=== PATIENT | male | born 1955 | race Caucasian/White ===

== ENCOUNTER 2016-12-21 08:20 | Outpatient (CLI) | payer OTHER ==
[~2016-12-21 08:20] MED LIST: ACET-2267 PO; ALBUTEROL 90MCG INH; ASP325T PO; ASPI-586 PO; ASPI-808 PO; ASPI-875 PO; ATOR80TA PO; ATOR80TA64 PO; AZIT1PAC8; BPR150TCR PO; CARV6.252 PO; CEFU500T5 PO; CLOP75TA28 PO; CLPD75T PO; CRV25T PO; DIPH50CA PO; DOXYCYCLINE; FURO40SO5 PO; FURO40TA4 PO; FURO80TA PO; FURO80TA3 PO; HYDR-2890 PO; HYDR-34 PO; HYDR-3458 PO; HYDR1CAP PO; IBUP-30 PO; IBUP200C11 PO; KCL20TCR PO; LISI20TA PO; METH4TAB PO; NIA500ERT PO; NIAC1CAP PO; NIAC500T5 PO; OXYC-12 PO; OXYC-202 PO; POTA10CA43 PO; POTA10TA36 PO; POTA20PI IV; PRD20T PO; SIMV40TA2 PO; TIZA2CAP PO; TIZA2TAB3 PO; TRAM-42 PO; WRF2.5T PO; WRF5T PO; [UNRECOGNIZED DRUG - OTHER]
--- OUTSIDE RECORDS SUMMARY | 2016-12-21 08:24 | XMS REPORT | Continuity of Care Document ---
Author Author [facility] Organization [facility] Address Unknown Phone Unavailable Care Team Providers Care Head Char Filter Tank Tender Name Role Phone ROBERT ALCARAZ MD PCP Insurance Providers Payer Name Policy Number Subscriber Name Relationship [employer] [id number] Samuel Moreno 18 Self / Same As Patient Advance Directives Directive Response Recorded Date/Time Advance Directives No 01/18/15 12:00pm Health Care Power of Enterprise Systems Manager No 01/18/15 12:00pm Organ Donor Yes 01/18/15 12:00pm Resuscitation Status Full Code 01/18/15 12:00pm Problems No known problems or medical conditions. Medications Medication Dose Route Sig Days/Qty Instructions Order Date Discontinued Date Status Clopidogrel Bisulfate 75 Mg PO DAILY 01/09/11 Active Carvedilol (Coreg) 6.25 Mg PO TWICE A DAY 01/09/11 02/09/12 Discontinued Warfarin Sodium 2.5 Mg PO ALBRIGTH, TU, W, TH, SA 01/09/11 01/11/11 Discontinued Warfarin Sodium 5 Mg PO DAILY TAKE 5MG DAILY UNTIL YOU SEE YOUR DOCTOR 01/09/11 02/10/11 Discontinued Lisinopril (Zestril) 20 Mg PO DAILY 01/09/11 Active Furosemide (Lasix) 40 Mg PO TWICE A DAY PRN 01/09/11 10/13/12 Discontinued Simvastatin 40 Mg PO BEDTIME 01/09/11 10/13/12 Discontinued Niacin 500 Mg PO DAILY 01/09/11 05/05/12 Discontinued Aspirin 325 Mg PO DAILY 01/09/11 10/14/12 Discontinued Potassium Chloride 20 Meq PO DAILY PRN 01/09/11 10/14/12 Discontinued Hydrocodone Bit/Acetaminophen 5 - 500 Tab PO NEEDED 01/09/1104/08 Discontinued Azithromycin 01/09/11 02/10/11 Discontinued Prednisone 60 Mg PO DAILY FOR 4 MORE DAYS 01/11/11 03/03/11 Discontinued Bupropion HCl 1 Tab PO TWICE A DAY 30 Qty 01/11/11 02/09/12 Discontinued [Albuterol 90MCG] 2 Puff INH EVERY 4HRS PRN NEEDED FOR SHORTNESS OF BREATH/ 01/11/11 02/09/12 Discontinued Diphenhydramine HCl 50 Mg PO Q4HRS 02/10/11 03/03/11 Discontinued [Doxycycline] 02/10/11 03/03/11 Discontinued Hydrocodone Bit/Acetaminophen 1 Each PO NEEDED 30 Days 02/10/1104/08 Discontinued Cefuroxime Axetil (Ceftin) 1 Each PO TWICE A DAY 5 Days 03/04/1102/08 Discontinued Oxycodone Hcl/Acetaminophen 1 Each PO EVERY 8HRS PRN FOR PAIN UNRELIEVED BY TYLENOL 03/04/11 02/09/12 Discontinued Carvedilol 25 Mg PO TWICE A DAY 02/09/12 Active Acetaminophen/Hydrocodone Bitart ([place]) 1 Tab PO THREE TIMES A DAY PRN 02/09/12 05/05/12 Discontinued [Slow Nician ] 05/05/12 10/14/12 Discontinued Hydrocodone Bit/Acetaminophen 1 Each PO 05/05/12 10/14/12 Discontinued Methylprednisolone 1 Packet PO DIRECTED 1 Qty 05/05/12 10/14/12 Discontinued Oxycodone Hcl/Acetaminophen 1 - 2 Each PO EVERY 6 HOURS PRN 10 Qty 06/0910/13/12 Discontinued Atorvastatin Calcium 1 Each PO DAILY 10/13/12 Active Furosemide 1 Each PO TWICE A DAY 10/13/12 10/14/12 Discontinued Niacin/Inositol Niacinate 1 Each PO 10/14/12 Active Aspirin 81 Mg PO 10/14/12 Active Furosemide (Lasix) 1 Each PO DAILY MORNING 10/14/12 Active Furosemide 40 Mg PO BEDTIME 10/14/12 Active Hydrocodone Bit/Acetaminophen 1 Each PO EVERY 8HRS PRN 10/14/12 Active Potassium Chloride 20 Meq IV 10/14/12 10/14/12 Discontinued Potassium Chloride (Micro K) 1 Each PO DAILY WITH FOOD 10/14/12 Active Social History Social History Problem Response Recorded Date/Time Recent Foreign Travel No 01/18/2015 10:18am Hospital Discharge Instructions No hospital discharge instructions. Plan of Care No plan of care. Functional Status No functional status results. Allergies, Adverse Reactions, Alerts Allergen Type Severity Reaction Status Last Updated Quinine Allergy Active 02/09/12 Immunizations No immunization records. Vital Signs Acute Vital Signs Vital Response Date/Time Temperature (Fahrenheit) 96.9 degrees F (97.6 - 99.5) Temperature (Calculated Celsius) 36.03796 degrees C (36.4 - 37.5) Temperature Source Temporal Pulse Rate (adult) 82 bpm (60 - 90) Respiratory Rate 16 bpm (12 - 24) O2 Sat by Pulse Oximetry 96 % (88 - 100) Blood Pressure 142/79 mm Hg Pain Pain Intensity 0 Height (Feet) 6 feet Height (Inches) 0.00 inches Height (Calculated Centimeters) 182.934651 cm Weight (Pounds) 280 pounds Weight (Ounces) 0.0 oz Weight (Calculated Grams) 311376.865 gm Weight (Calculated Kilograms) 127.651602 kilograms Height 6 ft 0 in Weight 280 lb Body Mass Index 38.0 kg/m^2 Results No known relevant diagnostic tests, laboratory data and/or discharge summary. Procedures No known history of procedures. Encounters Encounter Location Date/Time Discharged Recurring Via [facility] 01/23/15 10:03am
== END 2016-12-21 16:30 | disposition home or self-care (01) ==
LOC: SLEEP 08:20
PROVIDERS: ATTEND Internal Medicine Critical Care Medicine
DX: I50.22 Chronic systolic (congestive) heart failure (principal); J43.8 Other emphysema; I25.10 Atherosclerotic heart disease of native coronary artery without angina pectoris; R53.83 Other fatigue; E66.01 Morbid (severe) obesity due to excess calories; Z72.0 Tobacco use
CPT/HCPCS: 95810

== ENCOUNTER → 2016-12-22 | Outpatient (CLI) | payer OTHER ==
--- OUTSIDE RECORDS SUMMARY | 2016-12-22 09:03 | XMS REPORT | Continuity of Care Document ---
Author Author [facility] Organization [facility] Address Unknown Phone Unavailable Care Team Providers Care Paradichlorobenzene Tender Name Role Phone ROBERT ALCARAZ MD PCP Insurance Providers Payer Name Policy Number Subscriber Name Relationship [employer]p [id number] Samuel Moreno 18 Self / Same As Patient Advance Directives Directive Response Recorded Date/Time Advance Directives No 01/18/15 12:00pm Health Care Power of Fruit Or Nut Grower No 01/18/15 12:00pm Organ Donor Yes 01/18/15 12:00pm Resuscitation Status Full Code 01/18/15 12:00pm Problems No known problems or medical conditions. Medications Medication Dose Route Sig Days/Qty Instructions Order Date Discontinued Date Status Clopidogrel Bisulfate 75 Mg PO DAILY 01/09/11 Active Carvedilol (Coreg) 6.25 Mg PO TWICE A DAY 01/09/11 02/09/12 Discontinued Warfarin Sodium 2.5 Mg PO ALBRIGHT, TU, W, TH, SA 01/09/11 01/11/11 Discontinued [...] TWICE A DAY 02/09/12 Active Acetaminophen/Hydrocodone Bitart ([place]) 1 Tab PO THREE TIMES A DAY [...] F (97.6 - 99.5) Temperature (Calculated Celsius) 36.01651 degrees C (36.4 - 37.5) Temperature Source Temporal Pulse Rate (adult) 82 bpm (60 - 90) Respiratory Rate 16 bpm (12 - 24) O2 Sat by Pulse Oximetry 96 % (88 - 100) Blood Pressure 142/79 mm Hg Pain Pain Intensity 0 Height (Feet) 6 feet Height (Inches) 0.00 inches Height (Calculated Centimeters) 182.461155 cm Weight (Pounds) 280 pounds Weight (Ounces) 0.0 oz Weight (Calculated Grams) 056359.865 gm Weight (Calculated Kilograms) 127.851940 kilograms Height 6 ft 0 in Weight 280 lb Body Mass Index 38.0 kg/m^2 Results No known relevant diagnostic tests, laboratory data and/or discharge summary. Procedures No known history of procedures. Encounters Encounter Location Date/Time Discharged Recurring Via [facility] 01/23/15 10:03am
--- NOTE | 2016-12-22 10:49 | Diagnostic Imaging Report ---
PA and lateral chest at 934 hours. INDICATION: Cough. FINDINGS: The cardiomegaly and right-sided defibrillator device seen on the prior exam of 10/21/16 are again visualized and no different. The previous study also revealed bibasilar atelectasis and a newly developed right pleural effusion. Those findings are again evident and not significantly changed either. The upper lungs remain clear. The right hilum is prominent but not significantly changed when compared to the prior exam. There is no clear evidence for a hilar mass. The mediastinum is not widened. The osseous structures are intact. IMPRESSION: 1. When compared to the previous study, there has been no significant change. There is persistent atelectasis/infiltrate in each lung base as well as a moderate right pleural effusion. No new abnormality has developed, however. 2. If clinical concern regarding an underlying abnormality persists, then CT of the chest would be recommended for further study. 3. These results were discussed with Rosa in Dr. Lopez's office. Dictated by: Dictated on workstation # [id number]
== END ==
LOC: RAD 08:59
PROVIDERS: ATTEND Nurse Practitioner
DX: R06.02 Shortness of breath (principal)
CPT/HCPCS: 71020

== ENCOUNTER → 2016-12-24 | Outpatient (CLI) | payer OTHER ==
[~2016-12-24] MED LIST changes: +CATHETER FLUSH 10 ML SYR IV PRN; +IOHEXOL 350 MG/ML 100 ML (OMNIPAQUE 350) VIAL IV ONE; +NS 100 ML (IVPB) BAG IV ONE
--- OUTSIDE RECORDS SUMMARY | 2016-12-24 08:53 | XMS REPORT | Continuity of Care Document ---
Author Author [facility] Organization [facility] Address Unknown Phone Unavailable Care Team Providers Care Wet Press Tender Name Role Phone ROBERT ALCARAZ MD PCP Insurance Providers Payer Name Policy Number Subscriber Name Relationship [employer] [id number] Samuel Moreno 18 Self / Same As Patient Advance Directives Directive Response Recorded Date/Time Advance Directives No 01/18/15 12:00pm Health Care Power of Beam Press Operator No 01/18/15 12:00pm Organ Donor Yes 01/18/15 [...] TWICE A DAY 02/09/12 Active Acetaminophen/Hydrocodone Bitart ([place]) 1 Tab PO THREE TIMES A DAY [...] F (97.6 - 99.5) Temperature (Calculated Celsius) 36.17718 degrees C (36.4 - 37.5) Temperature Source Temporal Pulse Rate (adult) 82 bpm (60 - 90) Respiratory Rate 16 bpm (12 - 24) O2 Sat by Pulse Oximetry 96 % (88 - 100) Blood Pressure 142/79 mm Hg Pain Pain Intensity 0 Height (Feet) 6 feet Height (Inches) 0.00 inches Height (Calculated Centimeters) 182.978635 cm Weight (Pounds) 280 pounds Weight (Ounces) 0.0 oz Weight (Calculated Grams) 836035.865 gm Weight (Calculated Kilograms) 127.784606 kilograms Height 6 ft 0 in Weight 280 lb Body Mass Index 38.0 kg/m^2 Results No known relevant diagnostic tests, laboratory data and/or discharge summary. Procedures No known history of procedures. Encounters Encounter Location Date/Time Discharged Recurring Via [facility] 01/23/15 10:03am
[2016-12-24 09:30] LABS: BLOOD UREA NITROGEN 17 MG/DL (7-18); BUN/CREATININE RATIO 22; CREATININE SERUM 0.76 MG/DL (0.60-1.30); GFR ESTIMATED > 60
--- NOTE | 2016-12-24 12:55 | Diagnostic Imaging Report ---
PROCEDURE: CT chest with contrast only. TECHNIQUE: Multiple contiguous axial images were obtained through the chest after administration of intravenous contrast. INDICATION: Pneumonia. FINDINGS: The recent CT chest exam of 12/22/16 noted persistent atelectasis/infiltrate and fluid involving the right lung base. On this exam, there is again evidence of atelectasis/pneumonia and fluid in the right lung base. The fluid measures approximately 4.2 cm in maximum depth. When compared to the previous CT chest exam of 10/14/12, there has also been the development of several mediastinal and right hilar lymph nodes. The largest of these nodes is in the right pretracheal space and measures approximately 1.7 x 2.0 cm. There is also a 1.4 x 2.0 cm area of diminished density in the right hilum. I suspect that these are reactive nodes related to the pneumonia/atelectasis involving the right lung base and not to neoplasm. If further evaluation is desired, however, then bronchoscopy should be considered. If there is no intervention at this time, then a short-term (4-6 week) followup CT chest exam should be obtained. The right upper lung is generally clear although there are rather severe emphysematous changes involving the right upper lung. There are also emphysematous changes in the left lung and there is a small amount of atelectasis/infiltrate in the left lower lobe as well. The heart is enlarged and coronary artery calcifications are evident. There also appears to be a stent in the left circumflex coronary artery. A right-sided defibrillator device is noted as well. The pulmonary arteries are not fully opacified but there is no definite defect to suggest a pulmonary embolus. The aorta is not abnormally dilated and there is no evidence for a dissection. The thyroid gland does not appear to be enlarged. The sections through the upper abdomen fail to show any sign of an acute abnormality. The bone windows are unremarkable for a fracture or for a destructive lesion. IMPRESSION: 1. There is right lower lobe pneumonia/atelectasis and at least a moderate right pleural effusion present. There is also a nonspecific right hilar and mediastinal adenopathy. Considerations and recommendations as above. 2. There is also a small amount of atelectasis/infiltrate in the left lung base but there is no acute cardiopulmonary abnormality noted otherwise. In particular, there is no sign of a pulmonary embolus or of a dissection. 3. There is cardiomegaly and coronary artery disease. 4. These results were called to Dr. Lopez's office.. Dictated by: Dictated on workstation # [id number]
== END ==
LOC: RAD 08:50
PROVIDERS: ATTEND Nurse Practitioner
DX: J90 Pleural effusion, not elsewhere classified (principal); I51.7 Cardiomegaly; I25.10 Atherosclerotic heart disease of native coronary artery without angina pectoris
CPT/HCPCS: 36415; 71260; 82565; 84520

== ENCOUNTER 2017-01-01 08:32 | Outpatient (CLI) | payer OTHER ==
[~2017-01-01] VITALS: Ht 182.9 cm; Wt 129.3 kg
[~2017-01-01 08:32] MED LIST changes: -CATHETER FLUSH 10 ML SYR IV PRN; -IOHEXOL 350 MG/ML 100 ML (OMNIPAQUE 350) VIAL IV ONE; -NS 100 ML (IVPB) BAG IV ONE
--- OUTSIDE RECORDS SUMMARY | 2017-01-01 08:35 | XMS REPORT | Continuity of Care Document ---
Author Author [facility] Organization [facility] Address Unknown Phone Unavailable Care Team Providers Care Retail Client Manager Name Role Phone ROBERT ALCARAZ MD PCP Insurance Providers Payer Name Policy Number Subscriber Name Relationship [employer]p [id number] Samuel Moreno 18 Self / Same As Patient Advance Directives Directive Response Recorded Date/Time Advance Directives No 01/18/15 12:00pm Health Care Power of Clearance Rep No 01/18/15 12:00pm Organ Donor Yes 01/18/15 [...] TWICE A DAY 02/09/12 Active Acetaminophen/Hydrocodone Bitart ([place]) 1 Tab PO THREE TIMES A DAY [...] F (97.6 - 99.5) Temperature (Calculated Celsius) 36.29716 degrees C (36.4 - 37.5) Temperature Source Temporal Pulse Rate (adult) 82 bpm (60 - 90) Respiratory Rate 16 bpm (12 - 24) O2 Sat by Pulse Oximetry 96 % (88 - 100) Blood Pressure 142/79 mm Hg Pain Pain Intensity 0 Height (Feet) 6 feet Height (Inches) 0.00 inches Height (Calculated Centimeters) 182.331034 cm Weight (Pounds) 280 pounds Weight (Ounces) 0.0 oz Weight (Calculated Grams) 386045.865 gm Weight (Calculated Kilograms) 127.047354 kilograms Height 6 ft 0 in Weight 280 lb Body Mass Index 38.0 kg/m^2 Results No known relevant diagnostic tests, laboratory data and/or discharge summary. Procedures No known history of procedures. Encounters Encounter Location Date/Time Discharged Recurring Via [facility] 01/23/15 10:03am
[2017-01-01] MEDS ORDERED: BUPIVACAINE 0.25% 30 ML (SENSORCAINE) VIAL ONE (08:44)
[2017-01-01] MEDS ORDERED: TRIAMCINOLONE ACET (KENALOG-40) 40 MG/ML 1 ML VIAL ONE (08:44)
[2017-01-01 08:54] VITALS: BP 146/88
[2017-01-01 09:39] VITALS: BP 143/94
--- NOTE | 2017-01-01 12:07 | Pain Medicine-Procedure ---
Procedure Pre-Op/Post-Op Diagnosis Diagnosis: disc disorder with radiculopathy, lumbar Indications for Operation Low back and hip pain Attending Surgeon Osmel Procedure Date of Service: Jan 01, 2017 Procedure: Lumbar Epidural Steroid Injection at the L5/S1 Level under Fluoroscopic Guidance and left sacroiliac joint injection Procedure: Patient was identified in the holding area. After risks, benefits, and alternatives were discussed with the patient, informed consent was obtained. Patient held his Plavix for 7 days prior to procedure. Patient was brought to the fluoroscopy suite and placed prone on the procedure room table. A time out was performed. Vital signs were monitored throughout the procedure. The patients low back was prepped and draped in the usual sterile fashion. The patients skin was anesthetized using 2% Lidocaine. A Tuohy needle was inserted and advanced to the L5-S1 epidural space under fluoroscopic guidance using the loss of resistance technique and intermittent projection of fluoroscopy. There was no paresthesia with needle placement. The needle position was confirmed in both the AP and lateral view. After negative aspiration 2ml of non-ionic contrast was injected under live fluoroscopy which showed good spread of the contrast in the epidural space at the appropriate level, there was no intravascular or subarachnoid spread. Again, after negative aspiration for heme or CSF, 2 ml of 0.25% Bupivicaine, 2ml of preservative free normal saline, and 80mg of Kenalog was injected. The needle was removed and a sterile bandage was placed. Attention was then directed to the left sacroiliac joint which was identified under fluoroscopic guidance. The skin overlying the posterior inferior one third of the sacroiliac joint was anesthetized with 1 percent lidocaine and a 22 -gauge 3-1/2 inch needle was inserted and advanced into the joint. Following negative aspiration a total of 40 mg of Kenalog and 2 mL of 0.25 percent bupivacaine was injected. Needle was flushed with lidocaine and removed. Sterile bandage was applied. Patient tolerated the procedures well with no apparent complications. Complications None TIMOTEO CHAPMAN MD Jan 01, 2017 12:07 pm
== END 2017-01-01 09:41 | disposition home or self-care (01) ==
LOC: CARD 08:32
PROVIDERS: ATTEND Pain Medicine Pain Medicine
DX: M51.16 Intervertebral disc disorders with radiculopathy, lumbar region (principal); M53.3 Sacrococcygeal disorders, not elsewhere classified; M47.816 Spondylosis without myelopathy or radiculopathy, lumbar region; Z79.02 Long term (current) use of antithrombotics/antiplatelets; Z79.899 Other long term (current) drug therapy
CPT/HCPCS: 27096; 62323

== ENCOUNTER → 2017-02-05 | Outpatient (CLI) | payer OTHER ==
--- OUTSIDE RECORDS SUMMARY | 2017-02-05 13:49 | XMS REPORT | Continuity of Care Document ---
Author Author [facility] Organization [facility] Address Unknown Phone Unavailable Care Team Providers Care Area Mechanic Name Role Phone ROBERT ALCARAZ MD PCP Insurance Providers Payer Name Policy Number Subscriber Name Relationship [employer]p [id number] Samuel Moreno 18 Self / Same As Patient Advance Directives Directive Response Recorded Date/Time Advance Directives No 01/18/15 12:00pm Health Care Power of Supervisor Contact And Service Clerks No 01/18/15 12:00pm Organ Donor Yes 01/18/15 [...] TWICE A DAY 02/09/12 Active Acetaminophen/Hydrocodone Bitart ([place]) 1 Tab PO THREE TIMES A DAY [...] F (97.6 - 99.5) Temperature (Calculated Celsius) 36.91640 degrees C (36.4 - 37.5) Temperature Source Temporal Pulse Rate (adult) 82 bpm (60 - 90) Respiratory Rate 16 bpm (12 - 24) O2 Sat by Pulse Oximetry 96 % (88 - 100) Blood Pressure 142/79 mm Hg Pain Pain Intensity 0 Height (Feet) 6 feet Height (Inches) 0.00 inches Height (Calculated Centimeters) 182.231712 cm Weight (Pounds) 280 pounds Weight (Ounces) 0.0 oz Weight (Calculated Grams) 443057.865 gm Weight (Calculated Kilograms) 127.397776 kilograms Height 6 ft 0 in Weight 280 lb Body Mass Index 38.0 kg/m^2 Results No known relevant diagnostic tests, laboratory data and/or discharge summary. Procedures No known history of procedures. Encounters Encounter Location Date/Time Discharged Recurring Via [facility] 01/23/15 10:03am
--- NOTE | 2017-02-05 14:57 | Diagnostic Imaging Report ---
PROCEDURE: CT lumbar spine without contrast. TECHNIQUE: Multiple contiguous axial images were obtained through the lumbar spine without the use of intravenous contrast. Sagittal and coronal reformations were then performed. INDICATION: Low back and left hip pain. FINDINGS: Numbering performed with what appears to be the first [id number] vertebral body to have an ununited transverse processes. 7 mm anterolisthesis of L4 on L5 on static imaging. Remainder of alignment anatomic. Lumbar vertebral body heights demonstrate minimal wedging at T12. Lumbar vertebral body heights are overall fairly well maintained. No spondylolysis with asymmetric areas of hypertrophic facet arthropathy. L5-S1 level with moderate loss of disc space height and vacuum disc phenomena. No significant canal or foraminal narrowing. L4-5 level with moderate loss of disc space height. Mild broad-based disc bulge. Mild ligamentous and facet hypertrophy results in mild trefoil-type spinal canal narrowing. The foramina appear to be without significant stenosis. L3-L4 level with mild loss of disc space height. Mild broad-based disc bulge with minimal flattening of the ventral thecal sac. Ligamentum facet hypertrophy results in moderate trefoil-type spinal canal narrowing. There is also mild bilateral foraminal narrowing owing to disc bulge, right greater than left. Slight abutment on the right. L2-L3 level with mild loss of disc space height. Mild ligament and facet hypertrophy without significant canal or foraminal stenosis. L1-L2 level with mild loss of disc space height. No significant canal or foraminal stenosis. T12-L1 level unremarkable. There is scattered wall calcification of the partially visualized abdominal aorta. Additionally, there does appear to be asymmetric dilatation of the infraabdominal aorta which is only very limited and partially visualized. Approximately one-third of the posterior margins of abdominal aorta visualized measuring up to 3.3 cm. Additionally, there is intraluminal calcification could be reflective of a dissection. Scattered mildly prominent but nonpathologically enlarged central retroperitoneal lymph nodes present. There is presence of small bilateral pleural effusions, right greater than left. Likely atelectasis about the lower lobe distribution. IMPRESSION: 1. Multilevel lumbar spondylosis with ligamentous and facet hypertrophy. This results in scattered areas of trefoil-type spinal canal narrowing most severe at L3-L4 level along with mild foraminal narrowing. 2. While only partially visualized, there does appear to be potential abdominal aortic aneurysm with perhaps underlying dissection. If further assessment is desired, postcontrast CT imaging of the abdomen would be recommended. 3. Small bilateral pleural effusions associated with atelectasis of the lung bases. Report was stat faxed/called to office of Dr. Mani Bolivar @ 2:56 PM/fred. Dictated by: Dictated on workstation # [id number]
== END ==
LOC: RAD 13:45
PROVIDERS: ATTEND Pain Medicine Pain Medicine
DX: M43.06 Spondylolysis, lumbar region (principal)
CPT/HCPCS: 72131

== ENCOUNTER → 2017-02-10 | Outpatient (CLI) | payer OTHER ==
[~2017-02-10] MED LIST changes: +CATHETER FLUSH 10 ML SYR IV PRN; +IOHEXOL 350 MG/ML 150 ML (OMNIPAQUE 350) VIAL IV ONE; +NS 100 ML (IVPB) BAG IV ONE; +NS 50 ML (IVPB) BAG IV ONE
--- OUTSIDE RECORDS SUMMARY | 2017-02-10 10:02 | XMS REPORT | Continuity of Care Document ---
Author Author [facility] Organization [facility] Address Unknown Phone Unavailable Care Team Providers Care Risk Management Director Name Role Phone ROBERT ALCARAZ MD PCP Insurance Providers Payer Name Policy Number Subscriber Name Relationship [employer] [id number] Samuel Moreno 18 Self / Same As Patient Advance Directives Directive Response Recorded Date/Time Advance Directives No 01/18/15 12:00pm Health Care Power of Manager Surgery No 01/18/15 12:00pm Organ Donor Yes 01/18/15 [...] TWICE A DAY 02/09/12 Active Acetaminophen/Hydrocodone Bitart ([place]) 1 Tab PO THREE TIMES A DAY [...] F (97.6 - 99.5) Temperature (Calculated Celsius) 36.97939 degrees C (36.4 - 37.5) Temperature Source Temporal Pulse Rate (adult) 82 bpm (60 - 90) Respiratory Rate 16 bpm (12 - 24) O2 Sat by Pulse Oximetry 96 % (88 - 100) Blood Pressure 142/79 mm Hg Pain Pain Intensity 0 Height (Feet) 6 feet Height (Inches) 0.00 inches Height (Calculated Centimeters) 182.183289 cm Weight (Pounds) 280 pounds Weight (Ounces) 0.0 oz Weight (Calculated Grams) 674473.865 gm Weight (Calculated Kilograms) 127.269300 kilograms Height 6 ft 0 in Weight 280 lb Body Mass Index 38.0 kg/m^2 Results No known relevant diagnostic tests, laboratory data and/or discharge summary. Procedures No known history of procedures. Encounters Encounter Location Date/Time Discharged Recurring Via [facility] 01/23/15 10:03am
[2017-02-10 10:50] LABS: ANION GAP 10 MMOL/L (5-14); CALCIUM 9.8 MG/DL (8.5-10.1); CARBON DIOXIDE 25 MMOL/L (21-32); CHLORIDE 102 MMOL/L (98-107); CREATININE SERUM 0.88 MG/DL (0.60-1.30); GFR ESTIMATED > 60; GLUCOSE 101 MG/DL (70-105); POTASSIUM 4.8 MMOL/L (3.6-5.0); SODIUM 137 MMOL/L (135-145)
[2017-02-10 11:00] LABS: BLOOD UREA NITROGEN 27 MG/DL (7-18); BUN/CREATININE RATIO 31
--- NOTE | 2017-02-10 14:31 | Diagnostic Imaging Report ---
INDICATION: Followup of abnormal ultrasound from outside office. TECHNIQUE: Bolus IV contrasted study is performed of the abdomen and pelvis and lower extremities with 2D MIP reconstructions. FINDINGS: There is good opacification of the aorta and abdominal vessels. The aorta is atherosclerotic. The superior mesenteric and celiac arteries are widely patent. The renal arteries show mild atherosclerotic plaquing and are widely patent. The distal aorta measures 3.6 cm in diameter just above the iliac bifurcation. The iliac arteries show dense atherosclerotic plaquing with maximal stenosis estimated at approximately 50% on the right. The external iliac arteries are minimally atherosclerotic as are the common femoral arteries and profundus femoral arteries. The superficial femoral arteries show only minimal atherosclerotic plaquing. The right popliteal artery shows dense plaque with stenosis estimated at 30%. There is dense plaquing at the bifurcation of the posterior tibial and peroneal artery on the right. The trifurcation vessels are widely patent to the ankle bilaterally. IMPRESSION: 1. Diffuse atherosclerotic plaquing. Mild aneurysmal dilatation is noted in the distal aorta measuring 3.6 cm. 2. Moderate stenosis of the right common iliac artery estimated at 50%. 3. Mild scattered plaquing in the common femoral and distal superficial femoral arteries bilaterally, though no definite hemodynamic changes seen. 4. There is focal atherosclerotic plaquing noted at the trifurcation vessel takeoff on the right with probable hemodynamic stenosis. Dictated by: Dictated on workstation # [id number]
== END ==
LOC: RAD 09:59
PROVIDERS: ATTEND Internal Medicine Cardiovascular Disease
DX: I70.0 Atherosclerosis of aorta (principal); I70.8 Atherosclerosis of other arteries; I25.10 Atherosclerotic heart disease of native coronary artery without angina pectoris; I65.23 Occlusion and stenosis of bilateral carotid arteries; J43.8 Other emphysema; I25.5 Ischemic cardiomyopathy; I50.23 Acute on chronic systolic (congestive) heart failure; G47.33 Obstructive sleep apnea (adult) (pediatric); M54.5 Low back pain
CPT/HCPCS: 36415; 75635; 80048

== ENCOUNTER 2017-03-16 09:49 | Outpatient (CLI) | payer OTHER ==
[2017-03-16] VITALS (8 sets, daily range): BP systolic 106–148; BP diastolic 50–77
[~2017-03-16] VITALS: Ht 182.9 cm; Wt 129.3 kg
[~2017-03-16 09:49] MED LIST changes: -CATHETER FLUSH 10 ML SYR IV PRN; -IOHEXOL 350 MG/ML 150 ML (OMNIPAQUE 350) VIAL IV ONE; -NS 100 ML (IVPB) BAG IV ONE; -NS 50 ML (IVPB) BAG IV ONE
[2017-03-16 10:37] LABS: MEAN PLATELET VOLUME 10.1 FL (7.4-10.4); RED BLOOD COUNT 4.58 10^6/uL (4.35-5.85); RED CELL DISTRIBUTION WIDTH 14.7 % (10.0-14.5); WHITE BLOOD COUNT 11.7 10^3/uL (4.3-11.0)
[2017-03-16 10:47] LABS: PROTHROMBIN TIME PATIENT 13.2 SEC (12.2-14.7)
[2017-03-16] MEDS ORDERED: GADOBUTROL 7.5 MMOL/7.5 ML (GADAVIST) VIAL IV ONE (11:15)
[2017-03-16] MEDS ORDERED: IOHEXOL 300 MG/ML 30 ML (OMNIPAQUE 300) VIAL IV ONE (11:15)
[2017-03-16] MEDS ORDERED: LIDOCAINE 1% INJ 20 ML (XYLOCAINE) VIAL ONE (11:37)
[2017-03-16] MEDS ORDERED: HYDROcodone/APAP 5 MG/325 MG (LORTAB) TAB PO PRN (12:15)
--- NOTE | 2017-03-16 12:55 | Diagnostic Imaging Report ---
EXAMINATION: Fluoroscopic guided lumbar puncture with intrathecal contrast injection and myelogram performed. Difficult procedure INDICATION: Back pain. The patient has the significantly lower from body habitus and has difficulty laying prone. He also needed to move a few times during the exam. The patient however was very cooperative, but the above factors increased the difficulty of the procedure and imaging. FLUOROSCOPY TIME: 84 seconds CONSENT: Informed consent was obtained from the patient. The risks, benefits, potential complications and alternatives were reviewed and all questions answered to the patient's satisfaction. PROCEDURE: After sterile preparation and draping, 1% lidocaine was utilized for local anesthesia. Under fluoroscopic guidance, a 9 inch long 22-gauge spinal needle is advanced into the spinal canal at the level of L5/S1. CSF was not obtained at this level despite multiple attempts of changing the needle position. 1% lidocaine was given at the L4/5 level and the needle was introduced. Clear CSF is eventually obtained. Under fluoroscopic visualization, 12 cc of intrathecal Omnipaque-240 is administered into the thecal sac. The patient tolerated the procedure well with no immediate complications. FINDINGS: Myelogram images demonstrate opacification of the thecal sac. . IMPRESSION: Successful fluoroscopic guided intrathecal contrast injection with myelogram obtained and a lumbar CT myelogram to follow. Dictated by: Dictated on workstation # [id number]
--- NOTE | 2017-03-16 14:34 | Discharge Instructions ---
Discharge Instructions Home Medicaitons Changes Hold any current blood thinner home medications for [24 hours]. RANJANA SIMS MD Mar 16, 2017 14:34
--- NOTE | 2017-03-16 17:21 | Diagnostic Imaging Report ---
PROCEDURE: CT lumbar spine with contrast. TECHNIQUE: Multiple contiguous axial images were obtained through the lumbar spine after the intrathecal administration of contrast. Sagittal and coronal reformations were then performed. INDICATION: Back pain. FINDINGS: There is good opacification of the thecal sac with intrathecal contrast. There is a 3.6 cm infrarenal abdominal aortic aneurysm with aneurysmal dilatation extending into the proximal common iliac arteries bilaterally. Correlate with recent CTA performed on 02/10/2017. There is minimal anterior translation of L4 over L5; otherwise, the alignment of the lumbar spine is satisfactory. The vertebral body heights are preserved. The disc heights are also preserved. There is no pars defect or fracture at any level. There is significant facet joint arthropathy in the lower lumbar spine with vacuum phenomenon at the facets at L4/5 and L5/S1 levels. The cauda equina and conus medullaris appear grossly unremarkable. There are bridging anterior osteophytes and ossification of the anterior longitudinal ligament noted involving the lower thoracic and upper lumbar spine levels. The sacroiliac joints are also fused. T12/L1: There is no disc herniation, no spinal canal or foraminal stenosis. L1/2: There is no disc herniation, no spinal canal or foraminal stenosis. L2/3: There is a mild diffuse disc bulge with no central canal stenosis. There is svtk-as-mjxfcyia facet hypertrophy. No central canal, lateral recess, or foraminal stenosis seen, however. L3/4: There is a mild diffuse disc bulge and iicihial-wt-mbexsx facet arthropathy. There is no significant central canal or lateral recess stenosis. No significant foraminal stenosis. L4/5: There is minimal anterior translation of L4 over L5 at this level. There is a diffuse disc bulge and bilateral severe facet arthropathy. This is associated with moderate central canal stenosis reducing the AP dimension of the canal to 7.4 mm. There is also suggestion of a moderate lateral recess stenosis on the left and mild lateral recess stenosis on the right. The foramina demonstrate minimal narrowing bilaterally. L5/S1: There is a central disc protrusion seen with no central canal stenosis. There is moderate bilateral facet arthropathy. There is no significant lateral recess stenosis. The foramina demonstrate mild narrowing bilaterally. IMPRESSION: Lower lumbar spine degenerative facet and disc degenerative changes. There is minimal anterior translation of L4 over L5; otherwise, no significant spondylolisthesis is seen and no pars defects. Severe facet arthropathy at this level bilaterally is noted. A 3.6 cm infrarenal AAA. Dictated by: Dictated on workstation # [id number]
== END 2017-03-16 16:30 | disposition home or self-care (01) ==
LOC: RAD 09:49
PROVIDERS: ATTEND Orthopaedic Surgery
DX: M51.36 Other intervertebral disc degeneration, lumbar region (principal); M47.816 Spondylosis without myelopathy or radiculopathy, lumbar region; I71.4 Abdominal aortic aneurysm, without rupture
CPT/HCPCS: 36415; 62284; 72132; 72265; 77002; 85027; 85610; 85730

== ENCOUNTER → 2017-12-07 | Outpatient (CLI) | payer OTHER ==
--- NOTE | 2017-12-07 16:18 | Diagnostic Imaging Report ---
EXAMINATION: PA and lateral chest at 03:21 p.m. INDICATION: Respiratory distress, chronic pulmonary disease. FINDINGS: The heart is enlarged but stable when compared to 12/22/2016. The right-sided defibrillator device seen on the prior study is again evident and no different. In the interval since the prior exam, the amount of fluid along the periphery of the right lung base has diminished. There is still a small amount of fluid present in each lower lobe as well as bibasilar atelectasis/infiltrate. The upper lungs are generally clear. The mediastinum is not widened. The osseous structures are intact. IMPRESSION: The appearance of the chest has improved since the prior exam as the fluid along the periphery of the right lung base has diminished. The overall appearance of the chest has not changed significantly otherwise. A follow-up exam will be recommended for continued evaluation. Dictated by: Dictated on workstation # [id number]
== END ==
LOC: RAD 14:34
PROVIDERS: ATTEND Internal Medicine
DX: J44.9 Chronic obstructive pulmonary disease, unspecified (principal); I50.9 Heart failure, unspecified
CPT/HCPCS: 71046

== ENCOUNTER → 2017-12-16 | Outpatient (CLI) | payer OTHER | LOC: CARD 13:32 | PROVIDERS: ATTEND Internal Medicine Cardiovascular Disease | DX: I25.10 Atherosclerotic heart disease of native coronary artery without angina pectoris (principal); R06.02 Shortness of breath; J43.8 Other emphysema; I50.22 Chronic systolic (congestive) heart failure; G47.33 Obstructive sleep apnea (adult) (pediatric); E66.8 Other obesity; I25.5 Ischemic cardiomyopathy; R73.02 Impaired glucose tolerance (oral); I25.2 Old myocardial infarction | CPT/HCPCS: 93306 ==

== ENCOUNTER → 2017-12-21 | Outpatient (CLI) | payer OTHER ==
[~2017-12-21] VITALS: Ht 182.9 cm; Wt 136.1 kg
[~2017-12-21] MED LIST changes: +CATHETER FLUSH 10 ML SYR IV PRN; +REGADENOSON 0.4 MG/5 ML SYR (LEXISCAN) IV ONE
[2017-12-21 12:57] VITALS: BP 102/54
[2017-12-21 13:32] VITALS: BP 92/61
[2017-12-21 13:34] VITALS: BP 114/61
--- NOTE | 2017-12-21 20:57 | STRESS TEST ---
DATE OF SERVICE: 12/21/2017 ECHOCARDIOGRAPHY REPORT CLINICAL DIAGNOSES: Shortness of breath, coronary artery disease, ischemic cardiomyopathy. Baseline images were carried out after injection of 10.31 mCi of technetium-99m tetrofosmin. This was followed by 0.4 mg regadenoson and 30.1 mCi technetium-99m tetrofosmin for stress imaging. The electrocardiogram showed sinus rhythm with left anterior fascicular block at baseline and this did not change during the study. Occasional isolated premature ventricular contractions were seen. He noted mild shortness of breath following regadenoson infusion, but tolerated the procedure well, overall. Review of images at rest and following stress indicates an anteroapical perfusion defect that is fairly large and is predominantly fixed. Gated images show anteroapical akinesis. Left ventricular ejection fraction is calculated to be 39%. Left ventricular end diastolic volume is 106 mL. TID is absent (1.02). CONCLUSIONS: 1. Fairly large anteroapical myocardial infarction without significant ischemia. 2. Anteroapical akinesis. 3. Left ventricular ejection fraction is calculated to be 39%. 4. Moderate cardiomegaly. Job ID: [id number] DocumentID: [id number] Dictated Date: 12/21/2017 16:39:42 Prop Maker Date: 12/21/2017 17:16:19 Dictated By: JOSE CARLOS KENDALL MD, MA, FACP, FACC,
== END ==
LOC: CARD 12:07
PROVIDERS: ATTEND Internal Medicine Cardiovascular Disease
DX: I21.9 Acute myocardial infarction, unspecified (principal); R06.02 Shortness of breath; I25.10 Atherosclerotic heart disease of native coronary artery without angina pectoris; J43.8 Other emphysema; I50.22 Chronic systolic (congestive) heart failure; G47.33 Obstructive sleep apnea (adult) (pediatric); E66.8 Other obesity; I25.5 Ischemic cardiomyopathy; R73.02 Impaired glucose tolerance (oral); I25.2 Old myocardial infarction
CPT/HCPCS: 78452; 93017

== ENCOUNTER → 2017-12-27 | Outpatient (CLI) | payer OTHER ==
[~2017-12-27] MED LIST changes: -CATHETER FLUSH 10 ML SYR IV PRN; -REGADENOSON 0.4 MG/5 ML SYR (LEXISCAN) IV ONE
[2017-12-27 16:37] LABS: ABG BASE EXCESS 3.4 MMOL/L (-2.5-2.5); ABG OXYGEN SATURATION 92 % (94-100); ABG PCO2 48 MMHG (35-45); ABG PH 7.38 (7.37-7.43); ABG PO2 62 MMHG (79-93); ABG TCO2 29.6 MMOL/L (21.0-31.0)
[2017-12-27 16:41] LABS: ALLENS TEST POSITIVE
[2017-12-27 16:42] LABS: INSPIRED O2 2L; PATIENT TEMP 98.6; VENTILATOR NO
== END ==
LOC: LAB 16:10
PROVIDERS: ATTEND Nurse Practitioner Family
DX: J43.8 Other emphysema (principal); E66.2 Morbid (severe) obesity with alveolar hypoventilation
CPT/HCPCS: 82805

== ENCOUNTER → 2018-01-17 | Outpatient (CLI) | payer OTHER ==
--- NOTE | 2018-01-17 15:05 | Diagnostic Imaging Report ---
INDICATION: Cough and COPD. TIME OF EXAMINATION: 3:15 PM. COMPARISON: 12/07/2017. FINDINGS: The heart size is normal. The cardiac defibrillator remains in place. The lungs are hyperinflated, consistent with COPD. No infiltrate or failure is seen. No significant effusion or pneumothorax is identified. IMPRESSION: Stable chronic changes when compared to the exam from 12/07/2017. Dictated by: Dictated on workstation # [id number]
== END ==
LOC: RAD 14:45
PROVIDERS: ATTEND Internal Medicine
DX: J44.9 Chronic obstructive pulmonary disease, unspecified (principal)
CPT/HCPCS: 71046

== ENCOUNTER 2018-03-07 14:25 | Outpatient (RCR) | payer OTHER ==
[2018-04-05 14:00] VITALS: BP 122/64
[2018-04-05 14:45] VITALS: BP 118/60
[2018-04-07 14:00] VITALS: BP 138/78
[2018-04-07 15:00] VITALS: BP 117/64
[2018-04-26] MEDS ORDERED: ATOR80TA76 PO (11:16)
[2018-04-26] MEDS ORDERED: LISI40TA PO (11:16)
[2018-04-26] MEDS ORDERED: MONT10TA24 PO (11:16)
[2018-04-26] MEDS ORDERED: CLOP75TA69 PO (11:16)
[2018-04-26] MEDS ORDERED: METO5TAB6 PO (11:16)
[2018-04-26] MEDS ORDERED: ASPI-983 PO (11:16)
[2018-04-26] MEDS ORDERED: ASPI-999 PO (13:26)
[2018-05-24 12:40] VITALS: BP 118/60
[2018-05-24 13:35] VITALS: BP 104/60
== END 2018-06-05 | disposition home or self-care (01) ==
LOC: PULM 14:25
PROVIDERS: ATTEND Internal Medicine Cardiovascular Disease
DX: J44.9 Chronic obstructive pulmonary disease, unspecified (principal); R06.02 Shortness of breath
CPT/HCPCS: 99211

== ENCOUNTER → 2018-04-26 | Day surgery (SDC) | payer OTHER ==
[2018-04-26] VITALS (14 sets, daily range): BP systolic 93–149; BP diastolic 61–96
[~2018-04-26] VITALS: Ht 182.9 cm; Wt 136.1 kg
[~2018-04-26] MED LIST changes: +ASPI-983 PO; +ASPI-999 PO; +ASPIRIN 81 MG CHEW (CHILDREN'S ASA) ONE; +ATOR80TA76 PO; +CLOP75TA69 PO; +CLOPIDOGREL 300 MG (PLAVIX) TABLET PO ONE; +EPTIFIBATIDE BOLUS 10 ML IV ONE; +EPTIFIBATIDE BOLUS 20 ML IV ONE; +HEParin (CATH LAB) 2,000 ML IV ONE; +HEParin 1000 UNIT/ML (10ML VIAL) FOR BOLUS ONE; +LIDOCAINE 1% INJ 20 ML 20 ML VIAL ONE; +LISI40TA PO; +METO5TAB6 PO; +MIDAZOLAM 2 MG/2 ML (VERSED) VIAL ONE; +MIDAZOLAM 5 MG/5 ML (VERSED) VIAL ONE; +MONT10TA24 PO; +NITRO DRIP 25000 MCG/D5W 0 ML IV ONE; +NS IV 1000 ML 1,000 ML IV SCH; +NS IV 1000 ML 1,000 ML ONE; +PATIENT MAY USE OWN MEDS, ALL PO SCH; +diphenhydrAMINE 50 MG/ML INJ (BENADRYL) ONE; +fentaNYL INJECTION 100 MCG/2 ML AMP ONE
--- OUTSIDE RECORDS SUMMARY | 2018-04-26 10:14 | XMS REPORT ---
Author Author TIMOTEO DAS [facility] eClinicalWorks Address Unknown Phone Unavailable Care Team Providers Care Sample Paster Name Role Phone TIMOTEO DAS CP Unavailable Allergies, Adverse Reactions, Alerts Substance Reaction Event Type Quinine Sulfate Info Not Available Drug Allergy Problems Problem Type Condition Code Onset Dates Condition Status Assessment Dental examination Z01.20 Active Medications Medication Code System Code Instructions Start Date End Date Status Dosage Tramadol HCl NDC 0 not defined Lisinopril [facility] [address]-70 not defined Plavix [facility] [address]-71 not defined Niacin [facility] [address]-38 not defined Potassimin [facility] [address]-86 not defined lipitor NDC 0 not defined Furosemide [facility] [address]-39 not defined Carvedilol [facility] [address]-48 not defined Aspirin [facility] [address]-56 not defined Acetaminophen [facility] [address]-30 not defined ibuprofen NDC 0 not defined Zanaflex [facility] [address]-96 not defined Clopidogrel Bisulfate [facility] [address]-37 not defined Procedures Procedure Coding System Code Date INTRAORL-PERIAPICAL 1 FILM 74902 CPT-4 D0220 Sep 18, 2015 LTD ORAL EVALUATION - PROBLEM FOCUS CPT-4 D0140 Sep 18, 2015 Results No Known Results Summary Purpose eClinicalWorks Submission
--- OUTSIDE RECORDS SUMMARY | 2018-04-26 10:14 | XMS REPORT ---
Author Author TIMOTEO DAS Organization eClinicalWorks Address Unknown Phone Unavailable Care Team Providers Care Cue Selector Name Role Phone TIMOTEO DAS CP Unavailable Allergies, Adverse Reactions, Alerts Substance Reaction Event Type Quinine Sulfate Info Not Available Drug Allergy Problems Problem Type Condition Code Onset Dates Condition Status Assessment Dental caries K02.9 Active Medications Medication Code System Code Instructions Start Date End Date Status Dosage Clopidogrel Bisulfate [facility] [address]-06 not defined Zanaflex [facility] [address]-29 not defined lipitor NDC 0 not defined Plavix [facility] [address]-24 not defined Carvedilol [facility] [address]-25 not defined Potassimin [facility] [address]-35 not defined Tramadol HCl NDC 0 not defined Lisinopril [facility] [address]-28 not defined Niacin [facility] [address]-37 not defined ibuprofen NDC 0 not defined Shushan [facility] [address]-14 5-325 MG Orally every 6 hrs 1 tablet as needed Aspirin [facility] [address]-97 not defined Acetaminophen [facility] [address]-56 not defined Furosemide [facility] [address]-74 not defined Procedures Procedure Coding System Code Date EXTRAC ERUPTED TOOTH/EXPOSED ROOT CPT-4 D7140 Sep 18, 2015 Vital Signs Date/Time: Oct 16, 2015 Blood Pressure Diastolic 67 mmHg Blood Pressure Systolic 129 mmHg Results No Known Results Summary Purpose eClinicalWorks Submission
[2018-04-26 10:46] LABS: HEMOGLOBIN 14.9 G/DL (13.3-17.7); MEAN PLATELET VOLUME 10.6 FL (7.4-10.4); RED BLOOD COUNT 4.51 10^6/uL (4.35-5.85); RED CELL DISTRIBUTION WIDTH 14.9 % (10.0-14.5); WHITE BLOOD COUNT 9.2 10^3/uL (4.3-11.0)
[2018-04-26 11:03] LABS: CALCIUM 9.3 MG/DL (8.5-10.1); CREATININE SERUM 1.3 MG/DL (0.60-1.30); POTASSIUM 4.8 MMOL/L (3.6-5.0)
[2018-04-26 11:04] LABS: ALBUMIN 4.5 GM/DL (3.2-4.5); BILIRUBIN,TOTAL 0.8 MG/DL (0.1-1.0); TOTAL PROTEIN 8.2 GM/DL (6.4-8.2)
[2018-04-26 11:08] LABS: INR 1.1 (0.8-1.4); PROTHROMBIN TIME PATIENT 13.9 SEC (12.2-14.7)
--- NOTE | 2018-04-26 13:18 | Cardiac Procedure Note-CS/ASA ---
Pre-Procedure Note Pre-Op Procedure Note H&P Reviewed The H&P was reviewed, patient examined and no changes noted. Date H&P Reviewed: April 26, 2018 Time H&P Reviewed: 12:00 Conscious Sedation Pre-Proced Time Reviewed: 12:00 ASA Class: 3 Airway Mallampati Classification: (grand [place] appropriate class) I. II. III, IV Lungs Heart ASA score ASA 1: a normal healthy patient ASA 2: a patient with a mild systemic disease (mid diabetes, controlled hypertension, obesity ASA 3: a patient with a severe systemic disease that limits activity (angina , COPD, prior Myocardial infarction) ASA 4: a patient with an incapacitating disease that is a constant threat to life (CHF, renal failure) ASA 5: a moribund patient not expected to survive 24 hrs. (ruptured aneurysm) ASA 6: a declared brain patient whose organs are being harvested. For emergent operations, add the letter E after the classification Grade 3 Sedation Plan: Analgesia, Amnesia, Plan communicated to team members, Discussed options with patient/fam, Discussed risks with patient/fam Note The patient is an appropriate candidate to undergo the planned procedure, sedation, and anesthesia. The patient immediately re-assessed prior to indication. JOSE CARLOS KENDALL MD FACP FAC CCDS April 26, 2018 13:18
--- NOTE | 2018-04-26 13:25 | Discharge Inst-Post CATH ---
Discharge Inst-CATH Post Cardiac Cath D/C Inst Follow Up/Plan F/u with Dr Baker next week CARDIAC CATH DISCHARGE INSTRUCTIONS *Hold Metformin for 48 hours post heart cath. ACTIVITY * Go Home directly and rest. * Limit activity of the leg (or wrist if it was used) for 7 days including aerobics, swimming, jogging, bicycling, etc. * Restrict stair-climbing for 7 days if possible, if not, climb up with your non -cath leg, then bring together on the same step. * Avoid lifting, pushing, pulling or excessive movement of the affected extremity for 7 days. * Customary sexual activity may be resumed after 2 days-use caution not to use a position that strains or causes pain to the affected extremity. * No driving for 24 hours. * NO SMOKING. * Avoid straining for bowel movements for 7 days. * Gentle walking on level ground is allowed. * Returning to work will depend on the type of procedure and the results. Your doctor will discuss this with you. CALL YOUR DOCTOR FOR ANY OF THE FOLLOWING: *If bleeding from the puncture site occurs- Apply gentle pressure to site with clean cloth and call your doctor or EMS. * If a knot or lump forms under the skin, increases in size, or causes pain. * If bruising appears to be worsening or moving further down your leg instead of disappearing. * Temperature above 101 F. CARE OF YOUR GROIN INCISION; * Bruising or purple discoloration of the skin near the puncture site is common. * You may shower only, no bathtub bathing for 5 days. Be careful to avoid slipping as your leg may feel stiff. * If a closure device was used on your femoral artery, please see the attached guide regarding care of the device and your leg. * REMOVE the dressing from your groin the next day after your procedure in the shower. CARE OF YOUR WRIST INCISION; * Bruising or purple discoloration of the skin near the puncture site is common. * You may shower. * DO NOT submerge wrist. * Remove dressing in 24 hours. JOSE CARLOS BAKER MD FACP FAC CCDS April 26, 2018 13:25
--- NOTE | 2018-04-26 13:27 | Discharge Inst-Cardiology ---
Discharge Inst-Cardiac Discharge Medications New Medications: Aspirin (Aspirin) 81 Mg Tab.chew 81 MG PO DAILY, #90 TAB 3 Refills Continued Medications: Acetaminophen (Tylenol Extra Strength) 500 Mg Tablet 500 MG PO Q6H PRN for PAIN Atorvastatin Calcium (Atorvastatin Calcium) 80 Mg Tablet 80 MG PO HS, TAB Carvedilol (Coreg) 25 Mg Tablet 25 MG PO BID Clopidogrel Bisulfate (Plavix) 75 Mg Tablet 75 MG PO DAILY, TAB Furosemide (Furosemide) 80 Mg Tablet 80 MG PO AM & AFTERNOON Lisinopril (Lisinopril) 40 Mg Tablet 40 MG PO DAILY, TAB Metolazone (Metolazone) 5 Mg Tablet 5 MG PO DAILY, TAB Montelukast Sodium (Montelukast Sodium) 10 Mg Tablet 10 MG PO EVENING, TAB Oxycodone HCl/Acetaminophen (Percocet 10-325 mg Tablet) 1 Each Tablet 1 TAB PO Q6H PRN for PAIN Potassium Chloride (Potassium Chloride) 10 Meq Tab.er.prt 10 MEQ PO BID Tizanidine HCl (Tizanidine HCl) 2 Mg Tablet 2 MG PO BID PRN for MUSCLE SPASMS Tramadol HCl (Ultram) 50 Mg Tablet 50 MG PO TID PRN for PAIN Discontinued Medications: Aspirin (Aspirin EC) 81 Mg Tablet.dr 81 MG PO DAILY, TAB Ibuprofen (Advil) 200 Mg Capsule 200-400 MG PO TID PRN for PAIN Orders-Post D/C & Referrals Pneu Vac Indicated: Yes JOSE CARLOS KENDALL MD FACP FACC CCDS April 26, 2018 13:27
--- NOTE | 2018-04-26 15:00 | CARDIAC CATHETERIZATION ---
DATE OF SERVICE: 04/26/2018 The patient is a 62-year-old man, who has a history of coronary artery disease and ischemic cardiomyopathy, who has lately been experiencing symptoms consistent with new onset of angina that have been progressive. Cardiac catheterization was carried out after having obtained an informed consent for cardiac catheterization ad hoc coronary artery intervention. He is brought to the cardiac catheterization laboratory in a fasting state. Right groin was prepared and draped in the usual sterile fashion. Lidocaine 1% with local anesthesia. Modified Seldinger technique was used to advance a 5-Togolese sheath into the right femoral artery, a 5-Togolese JL4 catheter for left coronary angiography, a 5-Togolese JR4 catheter for right coronary angiography, a 5-Togolese pigtail catheter was used for left heart catheterization, left ventricular coronary angiography. PERCUTANEOUS INTERVENTION TO THE LEFT ANTERIOR DESCENDING ARTERY: Following completion of the diagnostic procedure, we carried out percutaneous intervention to the 75% stenosis of the proximal left anterior descending artery. We exchanged the sheath over a wire for a 6-Togolese sheath. We gave 8000 units of intravenous heparin and double bolus of Integrilin. We used a 6-Togolese JL4 guide catheter to engage the left coronary artery. We advanced a BMW wire across the lesion and the tip was placed in the distal vessel. We carried out a balloon angioplasty at the site of the lesion with Emerge 3.0 mm x 20 mm balloon, which reduced the stenosis from 75% to approximately 50%. We then proceeded with stenting the vessel with Alpine Xience 4.0 x 15 mm stent, which slightly overlaps the previously placed stent in the mid left anterior descending artery. Following the stent deployment, there is no significant residual stenosis. Flow throughout the vessel is normal. He tolerated the procedure well. Angiography of the right femoral artery was carried out through the sheath. Mynx was used to achieve hemostasis. HEMODYNAMICS: Left ventricular end-diastolic pressure following coronary angiography was 15 mmHg. There was no significant pressure gradient on pullback across the aortic valve. Ascending aortic pressure was of 110/64. CORONARY ANGIOGRAPHY: Left main coronary artery is free of significant disease. Left anterior descending artery has 75% stenosis in the proximal portion, proximal to the previously placed stent. To this, successful balloon angioplasty and stenting was carried out and following deployment of Alpine Xience 4.0 x 15 mm stent, there is no significant residual stenosis and the previously placed left anterior descending artery stents in the mid vessel are intact. A large first obtuse marginal branch of the left circumflex artery has a patent stent. Right coronary artery is dominant and has mild plaques. LEFT VENTRICULAR CORONARY ANGIOGRAPHY: Left ventricular coronary angiography was carried out in the right anterior oblique projection. There is anteroapical lateral hypokinesis. Left ventricular coronary ejection fraction approximately 40%. CONCLUSION: 1. Coronary artery disease primarily consisting of 75% stenosis of the proximal left anterior descending artery to which successful stenting was carried out: following deployment of Alpine Xience 4.0 x 15 mm stent there is no significant residual stenosis. In the mid vessel, there are patent overlapping stents, known to be Front Worker 3.5 x 24 and a Front Worker 3.0 mm x 24 mm stent placed several years ago. The left circumflex artery has a patent stent in a large first obtuse marginal branch, which is known to be a Promus Premier 3.5 x 12 mm stent. The right coronary artery is dominant and has mild diffuse plaques. 2. Impairment of global left ventricular systolic function with anteroapical hypokinesis and left ventricular ejection fraction approximately 40%. 3. Mild elevation of left ventricular end-diastolic pressure. DISCUSSION AND RECOMMENDATIONS: Dual antiplatelet therapy is being continued. The rest of cardiac regimen is being continued. He insists on being discharged tonight. He will be kept for observation for 10 to 12 hours. If he remains stable, we will discharge him at night. Job ID: [id number] DocumentID: [id number] Dictated Date: 04/26/2018 12:37:11 Cattle Alley Worker Date: 04/26/2018 14:59:16 Dictated By: JOSE CARLOS KENDALL MD, MA, FACP, FACC, MTDD
== END ==
LOC: CATH 10:10
PROVIDERS: ATTEND Nurse Practitioner Family
DX: I25.10 Atherosclerotic heart disease of native coronary artery without angina pectoris (principal); I25.5 Ischemic cardiomyopathy; Z87.891 Personal history of nicotine dependence; I50.22 Chronic systolic (congestive) heart failure; J44.9 Chronic obstructive pulmonary disease, unspecified; E66.2 Morbid (severe) obesity with alveolar hypoventilation; R09.02 Hypoxemia; I11.0 Hypertensive heart disease with heart failure; E78.5 Hyperlipidemia, unspecified; Z68.41 Body mass index [BMI] 40.0-44.9, adult
CPT/HCPCS: 36415; 80053; 80061; 85027; 85610; 85730; 87081; 93005; 93458

== ENCOUNTER → 2018-08-17 | Outpatient (CLI) | payer OTHER ==
[~2018-08-17] MED LIST changes: -ASPIRIN 81 MG CHEW (CHILDREN'S ASA) ONE; -CLOPIDOGREL 300 MG (PLAVIX) TABLET PO ONE; -EPTIFIBATIDE BOLUS 10 ML IV ONE; -EPTIFIBATIDE BOLUS 20 ML IV ONE; -HEParin (CATH LAB) 2,000 ML IV ONE; -HEParin 1000 UNIT/ML (10ML VIAL) FOR BOLUS ONE; -LIDOCAINE 1% INJ 20 ML 20 ML VIAL ONE; -MIDAZOLAM 2 MG/2 ML (VERSED) VIAL ONE; -MIDAZOLAM 5 MG/5 ML (VERSED) VIAL ONE; -NITRO DRIP 25000 MCG/D5W 0 ML IV ONE; -NS IV 1000 ML 1,000 ML IV SCH; -NS IV 1000 ML 1,000 ML ONE; -OXYC-202 PO; +OXYC1TAB12 PO; -PATIENT MAY USE OWN MEDS, ALL PO SCH; -diphenhydrAMINE 50 MG/ML INJ (BENADRYL) ONE; -fentaNYL INJECTION 100 MCG/2 ML AMP ONE
[2018-08-17 23:30] LABS: AMPHETAMINES URINE QUAL DS Negative; BARBITURATES URINE QUAL DS Negative; BENZODIAZEPINE URINE QUAL DS Negative
== END ==
LOC: LAB 14:33
PROVIDERS: ATTEND Nurse Practitioner
DX: Z51.81 Encounter for therapeutic drug level monitoring (principal); Z79.891 Long term (current) use of opiate analgesic
CPT/HCPCS: 36415; 80307

== ENCOUNTER → 2018-08-25 | Outpatient (CLI) | payer OTHER ==
[~2018-08-25] MED LIST changes: +IOHEXOL 350 MG/ML 100 ML (OMNIPAQUE 350) VIAL IV ONE; +NS 250 ML (IVPB) BAG IV ONE
[2018-08-25 11:22] LABS: BUN/CREATININE RATIO 24; CREATININE SERUM 0.91 MG/DL (0.60-1.30); GFR ESTIMATED > 60
--- NOTE | 2018-08-25 14:13 | Diagnostic Imaging Report ---
PROCEDURE: CT neck soft tissue with contrast. TECHNIQUE: Multiple contiguous axial images were obtained through the neck after the administration of contrast. INDICATION: Throat pain, laryngeal ulcer. COMPARISON: There are no prior studies available for comparison. FINDINGS: There is no asymmetric density about the larynx to suggest a mass. There is no adenopathy involving the neck either. The submandibular and parotid glands are symmetrical and within normal limits. The thyroid gland is not enlarged. There is no focal mass involving the thyroid gland. The tracheal air shadow is not compressed or deviated. There is considerable atherosclerotic plaque involving both carotid bifurcations. There is no clear evidence for a hemodynamically significant stenosis, but if further imaging is desired, then a carotid Doppler exam should be obtained. There is mucosal thickening in both maxillary sinuses. The intracranial contents where visualized are unremarkable. There are emphysematous changes in the lung apices. There is no acute cardiopulmonary abnormality noted. The bone windows show no sign of a fracture or of a destructive lesion. There is degenerative disc and bony disease at C5-6, C6-7, and C7-T1. IMPRESSION: 1. There is no mass or adenopathy involving the neck, and there is no sign of an acute abnormality. 2. There is bilateral maxillary sinusitis. 3. There are emphysematous changes involving both lungs. Dictated by: Dictated on workstation # [id number]
== END ==
LOC: RAD 10:57
PROVIDERS: ATTEND Otolaryngology Otolaryngology/Facial Plastic Surgery
DX: J43.9 Emphysema, unspecified (principal); J32.0 Chronic maxillary sinusitis; J38.7 Other diseases of larynx; Z95.810 Presence of automatic (implantable) cardiac defibrillator
CPT/HCPCS: 36415; 70491; 82565; 84520

== ENCOUNTER 2018-09-05 13:19 | Outpatient (CLI) | payer OTHER ==
[~2018-09-05] VITALS: Ht 182.9 cm; Wt 140.6 kg
[~2018-09-05 13:19] MED LIST changes: -IOHEXOL 350 MG/ML 100 ML (OMNIPAQUE 350) VIAL IV ONE; -NS 250 ML (IVPB) BAG IV ONE
[2018-09-05 13:30] VITALS: BP 98/69
[2018-09-05] MEDS ORDERED: FURO80TA3 PO (13:45)
[2018-09-05] MEDS ORDERED: CARV25TA PO (13:45)
[2018-09-05] MEDS ORDERED: POTA-51 PO (13:45)
[2018-09-05] MEDS ORDERED: ASPI-983 PO (13:45)
[2018-09-05 14:23] LABS: BASOPHILS % (AUTO) 0 % (0-10); EOSINOPHILS # (AUTO) 0.3 10^3/uL (0.0-0.3); EOSINOPHILS % (AUTO) 3 % (0-10); HEMATOCRIT 44 % (40-54); HEMOGLOBIN 14.9 G/DL (13.3-17.7); LYMPHOCYTES # (AUTO) 0.9 X 10^3 (1.0-4.0); LYMPHOCYTES % (AUTO) 11 % (12-44); MEAN CORPUSCULAR HEMOGLOBIN 33 PG (25-34); MEAN CORPUSCULAR HGB CONC 34 G/DL (32-36); MEAN CORPUSCULAR VOLUME 98 FL (80-99); MEAN PLATELET VOLUME 10.2 FL (7.4-10.4); MONOCYTES % (AUTO) 12 % (0-12); NEUTROPHILS # (AUTO) 5.9 X 10^3 (1.8-7.8); NEUTROPHILS % (AUTO) 74 % (42-75); PLATELET COUNT 171 10^3/uL (130-400); RED BLOOD COUNT 4.46 10^6/uL (4.35-5.85); RED CELL DISTRIBUTION WIDTH 14.1 % (10.0-14.5)
--- NOTE | 2018-09-05 14:33 | Diagnostic Imaging Report ---
INDICATION: Epiglottic ulcer. Comparison is made with prior examination from 01/17/2018. FINDINGS: Heart size is normal. There is some bibasilar atelectasis and/or pneumonitis. There is no pneumothorax. Mediastinum is unremarkable. Pacemaker overlies the right hemithorax. IMPRESSION: Bibasilar atelectasis and/or pneumonitis. Dictated by: Dictated on workstation # [id number]
[2018-09-05 14:38] LABS: CALCIUM 9.4 MG/DL (8.5-10.1); CREATININE SERUM 1.24 MG/DL (0.60-1.30); POTASSIUM 5.3 MMOL/L (3.6-5.0)
== END 2018-09-05 14:25 | disposition home or self-care (01) ==
LOC: PREOP 13:19
PROVIDERS: ATTEND Otolaryngology Otolaryngology/Facial Plastic Surgery
DX: Z01.811 Encounter for preprocedural respiratory examination (principal); Z01.812 Encounter for preprocedural laboratory examination; Z11.2 Encounter for screening for other bacterial diseases; J38.7 Other diseases of larynx
CPT/HCPCS: 36415; 71046; 80048; 85025; 87081

== ENCOUNTER 2018-09-09 07:35 | Day surgery (SDC) | payer OTHER ==
[~2018-09-09] VITALS: Ht 182.9 cm; Wt 140.6 kg
[~2018-09-09 07:35] MED LIST changes: +CARV25TA PO; +LIDOCAINE/EPI 1%-1:200,000 (XYLOCAINE) 10 ML VIAL ONE; +POTA-51 PO
[2018-09-09] MEDS ORDERED: THROMBIN SPRAY KIT 5,000 UNIT VIAL ONE (07:36)
[2018-09-09] MEDS ORDERED: LACTATED RINGERS 1,000 ML IV PRN (07:37)
[2018-09-09 07:50] VITALS: BP 132/95
--- NOTE | 2018-09-09 07:52 | Progress Note-Pre Operative ---
Pre-Operative Progress Note H&P Reviewed The H&P was reviewed, patient examined and no changes noted. Date Seen by Provider: Sep 09, 2018 Time Seen by Provider: 07:45 Date H&P Reviewed: Sep 09, 2018 Time H&P Reviewed: 07:45 Pre-Operative Diagnosis: Epiglottic Lesion MINNIE BELL MD Sep 09, 2018 7:52 am
[2018-09-09] MEDS ORDERED: RT-ALBUTEROL SULF 2.5 MG/3 ML PRE-MIX VIAL ONE (08:07)
[2018-09-09] MEDS ORDERED: FAMOTIDINE 20MG/2ML IV (PEPCID) ONE (08:10)
[2018-09-09] MEDS ORDERED: RT-ALBUTEROL SULF 2.5 MG/3 ML PRE-MIX VIAL INH ONE (08:15)
[2018-09-09] MEDS ORDERED: MIDAZOLAM 2 MG/2 ML (VERSED) VIAL ONE (08:24)
[2018-09-09] MEDS ORDERED: fentaNYL INJECTION 100 MCG/2 ML AMP ONE (08:25)
[2018-09-09] MEDS ORDERED: FAMOTIDINE 20MG/2ML IV (PEPCID) IV ONE (08:30)
[2018-09-09] MEDS ORDERED: LIDOCAINE PF 2% 5 ML (XYLOCAINE) VIAL ONE (08:39)
[2018-09-09] MEDS ORDERED: ONDANSETRON 4 MG/2 ML (SDV) Z0FRAN ONE (08:39)
[2018-09-09] MEDS ORDERED: PHENYLEPHRINE 100 MCG/ML 10 ML (ANESTHESIA) SYR ONE (08:39)
[2018-09-09] MEDS ORDERED: proPOfol 200 MG/20 ML (DIPRIVAN) VIAL IV ONE (08:39)
[2018-09-09] MEDS ORDERED: SUCCINYLCHOLINE INJ 100 MG/5 ML SYR ONE (08:39)
[2018-09-09] MEDS ORDERED: DEXAMETHASONE 10 MG/ML (DECADRON) 1 ML VIAL ONE (08:39)
[2018-09-09] MEDS ORDERED: SEVOFLURANE (ULTANE) 15 ML INHAL SOLN ONE ×3 (08:40→08:57)
[2018-09-09] MEDS ORDERED: LIDOCAINE JELLY 2% (XYLOCAINE) 5 ML TUBE ONE (08:49)
[2018-09-09] MEDS ORDERED: PROMETHAZINE INJ 25 MG/ML (PHENERGAN) AMP IV PRN (09:00)
[2018-09-09] MEDS ORDERED: ACETAMINOPHEN 325 MG TABLET PO PRN (09:00)
[2018-09-09] MEDS ORDERED: HYDROcodone/APAP 5 MG/325 MG (LORTAB) TAB PO PRN (09:00)
--- NOTE | 2018-09-09 09:02 | Progress Note-Post Operative ---
Post-Operative Progess Note Surgeon (s)/Tanker Serviceman (s) Surgeon MINNIE BELL MD Tanker Serviceman n/a Pre-Operative Diagnosis Epiglottic Lesion Post-Operative Diagnosis same Post-Op Procedure Note Date of Procedure: Sep 09, 2018 Name of Procedure Performed: Direct Laryngosocpy with Biopsy of Epiglottic Lesion-Left Laryngeal Surface Description & Findings Description and Findings: n/a Anesthesia Type get Estimated Blood Loss minimal Packing none. Specimen(s) collected/removed Frozen section-scca of epiglottis-mod well diff MINNIE BELL MD Sep 09, 2018 9:02 am
[2018-09-09] MEDS ORDERED: ONDANSETRON 4 MG/2 ML (SDV) Z0FRAN IVP PRN (09:30)
[2018-09-09] MEDS ORDERED: morphine INJ 10 MG/ML 1ML (SYR OR VIAL) IVP ONE (09:30)
[2018-09-09 10:10] VITALS: BP 106/56
--- NOTE | 2018-09-09 10:13 | Anesthesia-General Post-Op ---
General Patient Condition Mental Status/LOC: Same as Preop Cardiovascular: Satisfactory Nausea/Vomiting: Absent Respiratory: Satisfactory Pain: Controlled Complications: Absent Post Op Complications Complications None Follow Up Care/Instructions Patient Instructions None needed. Anesthesia/Patient Condition Patient Condition Patient is doing well, no complaints, stable vital signs, no apparent adverse anesthesia problems. No complications reported per nursing. [place] [facility] Yes RICARDO LEON CRNA Sep 09, 2018 10:13
[2018-09-09] MEDS ORDERED: HYDR-3812 PO (10:36)
[2018-09-09 10:40] VITALS: BP 100/54
[2018-09-09 11:10] VITALS: BP 111/65
[2018-09-09 11:20] VITALS: BP 111/65
--- OUTSIDE RECORDS SUMMARY | 2018-09-09 13:28 | XMS REPORT | Continuity of Care Document ---
Author Author [facility] Organization [facility] Address Unknown Phone Unavailable Allergies Active Description Code Type Severity Reaction Onset Reported/Identified Relationship to Patient Clinical Status Yes quinine [id number] Drug Allergy Unknown N/A 02/09/2012 Medications There is no data. Problems Date Dx Coded Attending Type Code Diagnosis Diagnosed By 02/09/2012 Ot 272.4 HYPERLIPIDEMIA NEC/NOS 02/09/2012 Ot 401.9 HYPERTENSION NOS 02/09/2012 Ot 412 OLD MYOCARDIAL INFARCT 02/09/2012 Ot 413.9 ANGINA PECTORIS NEC/NOS 02/09/2012 Ot 414.01 CORONARY ATHEROSCLEROSIS OF [place] CORON 02/09/2012 Ot 425.4 PRIM CARDIOMYOPATHY NEC 02/09/2012 Ot 786.09 RESPIRATORY ABNORM NEC 02/09/2012 Ot V45.82 PERCUTANEOUS TRANSLUM CORON ANGIOPLASTY 02/09/2012 Ot V58.63 LONG-TERM( CURRENT)USE OF ANTIPLATELET/AN 02/09/2012 Ot V58.66 LONG-TERM ( CURRENT) USE OF ASPIRIN 02/09/2012 Ot V58.69 OTH MED,LT, CURRENT USE 05/05/2012 Ot 724.2 LUMBAGO 10/14/2012 Ot 271.3 DISACCHARIDASE DEF/MALAB 10/14/2012 Ot 272.4 HYPERLIPIDEMIA NEC/NOS 10/14/2012 Ot 276.7 HYPERPOTASSEMIA 10/14/2012 Ot 278.00 OBESITY, NOS 10/14/2012 Ot 305.1 TOBACCO USE DISORDER 10/14/2012 Ot 403.90 HYPTNSV CHR KID DIS, UNSPEC, W CHR KD ST 10/14/2012 Ot 414.01 CORONARY ATHEROSCLEROSIS OF [place] CORON 10/14/2012 Ot 414.8 CHR ISCHEMIC HRT DIS NEC 10/14/2012 Ot 496 CHR AIRWAY OBSTRUCT NEC 10/14/2012 Ot 571.8 CHRONIC LIVER DIS NEC 10/14/2012 Ot 585.9 CHRONIC KIDNEY DISEASE, UNSPECIFIED 10/14/2012 Ot 715.90 OSTEOARTHROS NOS-UNSPEC 10/14/2012 Ot 724.5 BACKACHE NOS 10/14/2012 Ot 786.59 CHEST PAIN NEC 10/14/2012 Ot 790.5 ABN SERUM ENZY LEVEL NEC 10/14/2012 Ot V45.82 PERCUTANEOUS TRANSLUM CORON ANGIOPLASTY 10/14/2012 Ot V85.41 BODY MASS INDEX 40.0-44.9, ADULT 01/18/2015 ENOCH CARL FACC, ALI FACP CCDS Ot 996.61 01/18/2015 ENOCH CARL FACC, ALI FACP CCDS Ot E878.1 01/18/2015 ENOCH CARL FACC, ALI FACP CCDS Ot 996.61 01/18/2015 ENOCH CARL FACC, ALI FACP CCDS Ot E878.1 01/23/2015 Ot 996.61 01/23/2015 Ot E878.1 08/07/2015 ENOCH HENSONC, ALI FACP CCDS Ot 996.61 08/07/2015 ENOCH HENSONC, ALI FACP CCDS Ot E878.1 08/12/2015 TIMOTEO CHAPMAN MD Ot 722.52 08/21/2015 ENOCH CARL FACC, ALI FACP CCDS Ot 271.3 08/21/2015 ENOCH HENSONC, ALI FACP CCDS Ot 272.4 08/21/2015 ENOCH CARL FACC, ALI FACP CCDS Ot 278.00 08/21/2015 ENOCH CARL FACC, ALI FACP CCDS Ot 305.1 08/21/2015 ENOCH HENSONC, ALI FACP CCDS Ot 401.9 08/21/2015 ENOCH HENSONC, ALI FACP CCDS Ot 414.01 08/21/2015 ENOCH HENSONC, ALI FACP CCDS Ot 428.0 08/21/2015 ENOCH HENSONC, ALI FACP CCDS Ot 428.22 08/21/2015 ENOCH HENSONC, ALI FACP CCDS Ot 786.09 08/21/2015 ENOCH HENSONC, ALI FACP CCDS Ot 786.59 08/21/2015 ENOCH HENSONC, ALI FACP CCDS Ot V45.82 08/21/2015 ENOCH HENSONC, ALI FACP CCDS Ot V58.69 08/21/2015 ENOCH HENSONC, ALI FACP CCDS Ot V85.41 08/21/2015 ROBERT ALCARAZ MD Ot 496 10/16/2016 Ot 272.4 HYPERLIPIDEMIA NEC/NOS 10/16/2016 Ot 401.9 HYPERTENSION NOS 10/16/2016 Ot 413.9 ANGINA PECTORIS NEC/NOS 10/16/2016 Ot 414.00 CORON ATHEROSCLER NOS TYPE VESSEL, NATIV 10/16/2016 Ot 425.4 PRIM CARDIOMYOPATHY NEC 10/16/2016 Ot 786.05 SHORTNESS OF BREATH 10/16/2016 Ot V58.63 LONG-TERM( CURRENT)USE OF ANTIPLATELET/AN 10/16/2016 Ot V58.66 LONG-TERM ( CURRENT) USE OF ASPIRIN 10/16/2016 Ot V58.69 OTH MED,LT, CURRENT USE 10/16/2016 Ot V72.63 PRE- PROCEDURAL LABORATORY EXAMINATION 10/16/2016 Ot V72.81 EXAM-PRE- OPERATIVE CARDIOVASCULAR 10/16/2016 Ot 724.5 BACKACHE NOS 10/21/2016 Ot 272.4 HYPERLIPIDEMIA NEC/NOS 10/21/2016 Ot 401.9 HYPERTENSION NOS 10/21/2016 Ot 413.9 ANGINA PECTORIS NEC/NOS 10/21/2016 Ot 414.00 CORON ATHEROSCLER NOS TYPE VESSEL, NATIV 10/21/2016 Ot 425.4 PRIM CARDIOMYOPATHY NEC 10/21/2016 Ot 786.05 SHORTNESS OF BREATH 10/21/2016 Ot V58.63 LONG-TERM( CURRENT)USE OF ANTIPLATELET/AN 10/21/2016 Ot V58.66 LONG-TERM ( CURRENT) USE OF ASPIRIN 10/21/2016 Ot V58.69 OTH MED,LT, CURRENT USE 10/21/2016 Ot V72.63 PRE- PROCEDURAL LABORATORY EXAMINATION 10/21/2016 Ot V72.81 EXAM-PRE- OPERATIVE CARDIOVASCULAR 10/21/2016 Ot 724.5 BACKACHE NOS 10/21/2016 ROBERT ALCARAZ MD Ot I51.7 CARDIOMEGALY 10/21/2016 ROBERT ALCARAZ MD Ot J90 PLEURAL EFFUSION, NOT ELSEWHERE CLASSIFI 10/21/2016 ROBERT ALCARAZ MD Ot J98.11 ATELECTASIS 10/28/2016 ENOCH CARL FAC[place], ALI FACP CCDS Ot E66.01 MORBID (SEVERE) OBESITY DUE TO EXCESS CA 10/28/2016 ENOCH CARL FAC[place], ALI FACP CCDS Ot E78.4 OTHER HYPERLIPIDEMIA 10/28/2016 ENOCH MD FACC, ALI FACP CCDS Ot G47.33 OBSTRUCTIVE SLEEP APNEA (ADULT) (PEDIATR 10/28/2016 ENOCH CARL FACC, ALI FACP CCDS Ot I10 ESSENTIAL (PRIMARY) HYPERTENSION 10/28/2016 ENOCH CARL FACC, ALI FACP CCDS Ot I25.10 ATHSCL HEART DISEASE OF [place] CORONARY 10/28/2016 ENOCH CARL FACC, ALI FACP CCDS Ot I50.23 ACUTE ON CHRONIC SYSTOLIC (CONGESTIVE) H 10/28/2016 ENOCH CARL FACC, ALI FACP CCDS Ot R06.02 SHORTNESS OF BREATH 10/30/2016 ENOCH CARL FACC, ALI FACP CCDS Ot E66.01 MORBID (SEVERE) OBESITY DUE TO EXCESS CA 10/30/2016 ENOCH CARL FACC, ALI FACP CCDS Ot E78.4 OTHER HYPERLIPIDEMIA 10/30/2016 ENOCH CARL FACC, ALI FACP CCDS Ot G47.33 OBSTRUCTIVE SLEEP APNEA (ADULT) (PEDIATR 10/30/2016 ENOCH CARL FACC, ALI FACP CCDS Ot I11.0 HYPERTENSIVE HEART DISEASE WITH HEART FA 10/30/2016 ENOCH CARL FACC, ALI FACP CCDS Ot I25.10 ATHSCL HEART DISEASE OF [place] CORONARY 10/30/2016 ENOCH CARL FACC, ALI FACP CCDS Ot I50.23 ACUTE ON CHRONIC SYSTOLIC (CONGESTIVE) H 10/30/2016 ENOCH CARL FACC, ALI FACP CCDS Ot R06.02 SHORTNESS OF BREATH 10/30/2016 ENOCH CARL FACC, ALI FACP CCDS Ot E66.01 MORBID (SEVERE) OBESITY DUE TO EXCESS CA 10/30/2016 ENOCH CARL FACC, ALI FACP CCDS Ot E78.4 OTHER HYPERLIPIDEMIA 10/30/2016 ENOCH CARL FACC, ALI FACP CCDS Ot G47.33 OBSTRUCTIVE SLEEP APNEA (ADULT) (PEDIATR 10/30/2016 ENOCH CARL FACC, ALI FACP CCDS Ot I11.0 HYPERTENSIVE HEART DISEASE WITH HEART FA 10/30/2016 ENOCH CARL FACC, ALI FACP CCDS Ot I25.10 ATHSCL HEART DISEASE OF [place] CORONARY 10/30/2016 ENOCH HENSONC, ALI FACP CCDS Ot I50.23 ACUTE ON CHRONIC SYSTOLIC (CONGESTIVE) H 10/30/2016 ENOCH CARL FACC, ALI FACP CCDS Ot R06.02 SHORTNESS OF BREATH 11/18/2016 LISSA CARL, ROBERT Bryant Ot I51.7 CARDIOMEGALY 11/18/2016 LISSA CARL, ROBERT Bryant Ot J90 PLEURAL EFFUSION, NOT ELSEWHERE CLASSIFI 11/18/2016 LISSA CARL, ROBERT Bryant Ot J98.11 ATELECTASIS 11/27/2016 ENOCH CARL FACC, ALI FACP CCDS Ot E66.01 MORBID (SEVERE) OBESITY DUE TO EXCESS CA 11/27/2016 ENOCH CARL FACC, ALI FACP CCDS Ot E78.4 OTHER HYPERLIPIDEMIA 11/27/2016 ENOCH CARL FACC, ALI FACP CCDS Ot G47.33 OBSTRUCTIVE SLEEP APNEA (ADULT) (PEDIATR 11/27/2016 ENOCH CARL FACC, ALI FACP CCDS Ot I10 ESSENTIAL (PRIMARY) HYPERTENSION 11/27/2016 ENOCH CARL FACC, ALI FACP CCDS Ot I25.10 ATHSCL HEART DISEASE OF [place] CORONARY 11/27/2016 ENOCH CARL FACC, ALI FACP CCDS Ot I50.23 ACUTE ON CHRONIC SYSTOLIC (CONGESTIVE) H 11/27/2016 ENOCH HENSONC, ALI FACP CCDS Ot R06.02 SHORTNESS OF BREATH 11/27/2016 ENOCH CARL FACC, ALI FACP CCDS Ot E66.01 MORBID (SEVERE) OBESITY DUE TO EXCESS CA 11/27/2016 ENOCH HENSONC, ALI FACP CCDS Ot E78.4 OTHER HYPERLIPIDEMIA 11/27/2016 ENOCH CARL FACC, ALI FACP CCDS Ot G47.33 OBSTRUCTIVE SLEEP APNEA (ADULT) (PEDIATR 11/27/2016 ENOCH CARL FACC, ALI FACP CCDS Ot I11.0 HYPERTENSIVE HEART DISEASE WITH HEART FA 11/27/2016 ENOCH HENSONC, ALI FACP CCDS Ot I25.10 ATHSCL HEART DISEASE OF [place] CORONARY 11/27/2016 ENOCH CARL FACC, ALI FACP CCDS Ot I50.23 ACUTE ON CHRONIC SYSTOLIC (CONGESTIVE) H 11/27/2016 ENOCH CARL FACC, ALI FACP CCDS Ot R06.02 SHORTNESS OF BREATH 12/15/2016 Ot 272.4 HYPERLIPIDEMIA NEC/NOS 12/15/2016 Ot 401.9 HYPERTENSION NOS 12/15/2016 Ot 413.9 ANGINA PECTORIS NEC/NOS 12/15/2016 Ot 414.00 CORON ATHEROSCLER NOS TYPE VESSEL, NATIV 12/15/2016 Ot 425.4 PRIM CARDIOMYOPATHY NEC 12/15/2016 Ot 786.05 SHORTNESS OF BREATH 12/15/2016 Ot V58.63 LONG-TERM( CURRENT)USE OF ANTIPLATELET/AN 12/15/2016 Ot V58.66 LONG-TERM ( CURRENT) USE OF ASPIRIN 12/15/2016 Ot V58.69 OTH MED,LT, CURRENT USE 12/15/2016 Ot V72.63 PRE- PROCEDURAL LABORATORY EXAMINATION 12/15/2016 Ot V72.81 EXAM-PRE- OPERATIVE CARDIOVASCULAR 12/15/2016 Ot 724.5 BACKACHE NOS 12/15/2016 ENOCH CARL FACC, JOSE CARLOS FACP CCDS Ot E66.01 MORBID (SEVERE) OBESITY DUE TO EXCESS CA 12/15/2016 ENOCH CARL FACC, JOSE CARLOS FACP CCDS Ot E78.4 OTHER HYPERLIPIDEMIA 12/15/2016 ENOCH CARL FACC, ALI FACP CCDS Ot G47.33 OBSTRUCTIVE SLEEP APNEA (ADULT) (PEDIATR 12/15/2016 ENOCH CARL FACC, ALI FACP CCDS Ot I10 ESSENTIAL (PRIMARY) HYPERTENSION 12/15/2016 ENOCH CARL FACC, ALI FACP CCDS Ot I25.10 ATHSCL HEART DISEASE OF [place] CORONARY 12/15/2016 ENOCH CARL FACC, JOSE CARLOS FACP CCDS Ot I50.23 ACUTE ON CHRONIC SYSTOLIC (CONGESTIVE) H 12/15/2016 ENOCH CARL FACC, JOSE CARLOS FACP CCDS Ot R06.02 SHORTNESS OF BREATH 12/15/2016 ENOCH CARL FACC, ALI FACP CCDS Ot E66.01 MORBID (SEVERE) OBESITY DUE TO EXCESS CA 12/15/2016 ENOCH CARL FACC, JOSE CARLOS FACP CCDS Ot E78.4 OTHER HYPERLIPIDEMIA 12/15/2016 ENOCH CARL FACC, ALI FACP CCDS Ot G47.33 OBSTRUCTIVE SLEEP APNEA (ADULT) (PEDIATR 12/15/2016 ENOCH CARL FACC, ALI FACP CCDS Ot I11.0 HYPERTENSIVE HEART DISEASE WITH HEART FA 12/15/2016 ENOCH CARL FACC, ALI FACP CCDS Ot I25.10 ATHSCL HEART DISEASE OF [place] CORONARY 12/15/2016 ENOCH CARL FACC, ALI FACP CCDS Ot I50.23 ACUTE ON CHRONIC SYSTOLIC (CONGESTIVE) H 12/15/2016 ENOCH CARL FACC, ALI FACP CCDS Ot R06.02 SHORTNESS OF BREATH 12/15/2016 ROBERT ALCARAZ MD Ot I51.7 CARDIOMEGALY 12/15/2016 ROBERT ALCARAZ MD Ot J90 PLEURAL EFFUSION, NOT ELSEWHERE CLASSIFI 12/15/2016 ROBERT ALCARAZ MD Ot J98.11 ATELECTASIS 12/21/2016 CARMELO DAVIS DO Ot E66.01 MORBID (SEVERE) OBESITY DUE TO EXCESS CA 12/21/2016 CARMELO DAVIS DO Ot I25.10 ATHSCL HEART DISEASE OF [place] CORONARY 12/21/2016 CARMELO DAVIS DO Ot I50.22 CHRONIC SYSTOLIC (CONGESTIVE) HEART FAIL 12/21/2016 CARMELO DAVIS DO Ot J43.8 OTHER EMPHYSEMA 12/21/2016 CARMELO DAVIS DO Ot R53.83 OTHER FATIGUE 12/21/2016 CARMELO DAVIS DO Ot Z72.0 TOBACCO USE 12/22/2016 Ot 272.4 HYPERLIPIDEMIA NEC/NOS 12/22/2016 Ot 401.9 HYPERTENSION NOS 12/22/2016 Ot 413.9 ANGINA PECTORIS NEC/NOS 12/22/2016 Ot 414.00 CORON ATHEROSCLER NOS TYPE VESSEL, NATIV 12/22/2016 Ot 425.4 PRIM CARDIOMYOPATHY NEC 12/22/2016 Ot 786.05 SHORTNESS OF BREATH 12/22/2016 Ot V58.63 LONG-TERM( CURRENT)USE OF ANTIPLATELET/AN 12/22/2016 Ot V58.66 LONG-TERM ( CURRENT) USE OF ASPIRIN 12/22/2016 Ot V58.69 OTH MED,LT, CURRENT USE 12/22/2016 Ot V72.63 PRE- PROCEDURAL LABORATORY EXAMINATION 12/22/2016 Ot V72.81 EXAM-PRE- OPERATIVE CARDIOVASCULAR 12/22/2016 Ot 724.5 BACKACHE NOS 12/22/2016 ENOCH CARL FACC, JOSE CARLOS FACP CCDS Ot E66.01 MORBID (SEVERE) OBESITY DUE TO EXCESS CA 12/22/2016 JOSE CARLOS KENDALL MD, FACC FACP CCDS Ot E78.4 OTHER HYPERLIPIDEMIA 12/22/2016 JOSE CARLOS KENDALL MD, FACC FACP CCDS Ot G47.33 OBSTRUCTIVE SLEEP APNEA (ADULT) (PEDIATR 12/22/2016 ENOCH CARL FACC, JOSE CARLOS FACP CCDS Ot I10 ESSENTIAL (PRIMARY) HYPERTENSION 12/22/2016 ENOCH CARL FACC, ALI FACP CCDS Ot I25.10 ATHSCL HEART DISEASE OF [place] CORONARY 12/22/2016 ENOCH CARL FACC, ALI FACP CCDS Ot I50.23 ACUTE ON CHRONIC SYSTOLIC (CONGESTIVE) H 12/22/2016 ENOCH CARL FACC, ALI FACP CCDS Ot R06.02 SHORTNESS OF BREATH 12/22/2016 ENOCH CARL FACC, ALI FACP CCDS Ot E66.01 MORBID (SEVERE) OBESITY DUE TO EXCESS CA 12/22/2016 ENOCH CARL FACC, ALI FACP CCDS Ot E78.4 OTHER HYPERLIPIDEMIA 12/22/2016 ENOCH CARL FACC, ALI FACP CCDS Ot G47.33 OBSTRUCTIVE SLEEP APNEA (ADULT) (PEDIATR 12/22/2016 ENOCH CARL FACC, ALI FACP CCDS Ot I11.0 HYPERTENSIVE HEART DISEASE WITH HEART FA 12/22/2016 ENOCH CARL FACC, ALI FACP CCDS Ot I25.10 ATHSCL HEART DISEASE OF [place] CORONARY 12/22/2016 ENOCH CARL FACC, ALI FACP CCDS Ot I50.23 ACUTE ON CHRONIC SYSTOLIC (CONGESTIVE) H 12/22/2016 ENOCH CARL FACC, ALI FACP CCDS Ot R06.02 SHORTNESS OF BREATH 12/22/2016 LISSA CARL, ROBERT Bryant Ot I51.7 CARDIOMEGALY 12/22/2016 ROBERT ALCARAZ MD Ot J90 PLEURAL EFFUSION, NOT ELSEWHERE CLASSIFI 12/22/2016 ROBERT ALCARAZ MD Ot J98.11 ATELECTASIS 12/22/2016 CARMELO DAVIS DO Ot E66.01 MORBID (SEVERE) OBESITY DUE TO EXCESS CA 12/22/2016 CARMELO DAVIS DO Ot I25.10 ATHSCL HEART DISEASE OF [place] CORONARY 12/22/2016 CARMELO DAVIS DO Ot I50.22 CHRONIC SYSTOLIC (CONGESTIVE) HEART FAIL 12/22/2016 CARMELO DAVIS DO Ot J43.8 OTHER EMPHYSEMA 12/22/2016 CARMELO DAVIS DO Ot R53.83 OTHER FATIGUE 12/22/2016 CARMELO DAVIS DO Ot Z72.0 TOBACCO USE 12/23/2016 SURINDER PATTON APRN Ot R06.02 SHORTNESS OF BREATH 12/25/2016 SURINDER PATTON APRN Ot I25.10 ATHSCL HEART DISEASE OF [place] CORONARY 12/25/2016 POOJA SURINDER Hightower SEAM CLOSER Ot I51.7 CARDIOMEGALY 12/25/2016 POOJA SURINDER Hightower SEAM CLOSER Ot J90 PLEURAL EFFUSION, NOT ELSEWHERE CLASSIFI 12/30/2016 POOJA SURINDER Hightower SEAM CLOSER Ot I25.10 ATHSCL HEART DISEASE OF [place] CORONARY 12/30/2016 SURINDER PATTON SEAM CLOSER Ot I51.7 CARDIOMEGALY 12/30/2016 SURINDER PATTON SEAM CLOSER Ot J90 PLEURAL EFFUSION, NOT ELSEWHERE CLASSIFI 01/01/2017 TIMOTEO CHAPMAN MD, Ot M47.816 SPONDYLOSIS W/O MYELOPATHY OR RADICULOPA 01/01/2017 TIMOTEO CHAPMAN MD, Ot M51.16 INTERVERTEBRAL DISC DISORDERS W RADICULO 01/01/2017 TIMOTEO CHAPMAN MD, Ot M53.3 SACROCOCCYGEAL DISORDERS, NOT ELSEWHERE 01/01/2017 TIMOTEO CHAPMAN MD Ot Z79.02 POLICY SERVICE COORDINATOR (CURRENT) USE OF ANTITHROMBOTI 01/01/2017 TIMOTEO CHAPMAN MD Ot Z79.899 OTHER MCC (CURRENT) DRUG THERAPY 01/06/2017 TIMOTEO CHAPMAN MD, Ot M47.816 SPONDYLOSIS W/O MYELOPATHY OR RADICULOPA 01/06/2017 TIMOTEO CHAPMAN MD, Ot M51.16 INTERVERTEBRAL DISC DISORDERS W RADICULO 01/06/2017 TIMOTEO CHAPMAN MD, Ot M53.3 SACROCOCCYGEAL DISORDERS, NOT ELSEWHERE 01/06/2017 TIMOTEO CHAPMAN MD Ot Z79.02 MCC (CURRENT) USE OF ANTITHROMBOTI 01/06/2017 TIMOTEO CHAPMAN MD Ot Z79.899 OTHER POLICY SERVICE COORDINATOR (CURRENT) DRUG THERAPY 02/08/2017 TIMOTEO CHAPMAN MD Ot M43.06 SPONDYLOLYSIS, LUMBAR REGION 02/11/2017 ENOCH CARL FACC, JOSE CARLOS HENSONP CCDS Ot G47.33 OBSTRUCTIVE SLEEP APNEA (ADULT) (PEDIATR 02/11/2017 ENOCH CARL FACC, JOSE CARLOS HENSONP CCDS Ot I25.10 ATHSCL HEART DISEASE OF [place] CORONARY 02/11/2017 ENOCH CARL FACC, JOSE CARLOS HENSONP CCDS Ot I25.5 ISCHEMIC CARDIOMYOPATHY 02/11/2017 ENOCH CARL FACC, JOSE CARLOS HENSONP CCDS Ot I50.23 ACUTE ON CHRONIC SYSTOLIC (CONGESTIVE) H 02/11/2017 ENOCH CARL FACC, ALI FACP CCDS Ot I65.23 OCCLUSION AND STENOSIS OF BILATERAL [place] 02/11/2017 ENOCH CARL FACC, ALI FACP CCDS Ot I70.0 ATHEROSCLEROSIS OF [place] 02/11/2017 ENOCH CARL FACC, ALI FACP CCDS Ot 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 02/11/2017 ENOCH CARL FACC, ALI FACP CCDS Ot J43.8 OTHER EMPHYSEMA 02/11/2017 ENOCH HENSONC, ALI FACP CCDS Ot M54.5 LOW BACK PAIN 02/11/2017 ENOCH CARL FACC, ALI FACP CCDS Ot G47.33 OBSTRUCTIVE SLEEP APNEA (ADULT) (PEDIATR 02/11/2017 ENOCH CARL FACC, ALI FACP CCDS Ot I25.10 ATHSCL HEART DISEASE OF [place] CORONARY 02/11/2017 ENOCH CARL FACC, ALI FACP CCDS Ot I25.5 ISCHEMIC CARDIOMYOPATHY 02/11/2017 ENOCH CARL FAC[place], ALI FACP CCDS Ot I50.23 ACUTE ON CHRONIC SYSTOLIC (CONGESTIVE) H 02/11/2017 ENOCH CARL FACC, ALI FACP CCDS Ot I65.23 OCCLUSION AND STENOSIS OF BILATERAL [place] 02/11/2017 ENOCH CARL FACC, ALI FACP CCDS Ot I70.0 ATHEROSCLEROSIS OF [place] 02/11/2017 ENOCH CARL FACC, ALI FACP CCDS Ot 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 02/11/2017 ENOCH CARL FACC, ALI FACP CCDS Ot J43.8 OTHER EMPHYSEMA 02/11/2017 ENOCH CARL FACC, ALI FACP CCDS Ot M54.5 LOW BACK PAIN 03/16/2017 WHIT MARCIAL DO Ot I71.4 ABDOMINAL AORTIC ANEURYSM, WITHOUT RUPTU 03/16/2017 WHIT MARCIAL DO Ot M47.816 SPONDYLOSIS W/O MYELOPATHY OR RADICULOPA 03/16/2017 WHIT MARCIAL DO Ot M51.36 OTHER INTERVERTEBRAL DISC DEGENERATION, 03/17/2017 WHIT MARCIAL DO Ot I71.4 ABDOMINAL AORTIC ANEURYSM, WITHOUT RUPTU 03/17/2017 WHIT MARCIAL DO Ot M47.816 SPONDYLOSIS W/O MYELOPATHY OR RADICULOPA 03/17/2017 WHIT MARCIAL DO Ot M51.36 OTHER INTERVERTEBRAL DISC DEGENERATION, 12/08/2017 LISSA CARL, ROBERT Bryant Ot I50.9 HEART FAILURE, UNSPECIFIED 12/08/2017 LISSA CARL, ROBERT Bryant Ot J44.9 CHRONIC OBSTRUCTIVE PULMONARY DISEASE, U 12/09/2017 ENOCH CARL FACC, ALI FACP CCDS Ot E66.01 MORBID (SEVERE) OBESITY DUE TO EXCESS CA 12/09/2017 ENOCH CARL FACC, ALI FACP CCDS Ot E78.4 OTHER HYPERLIPIDEMIA 12/09/2017 ENOCH CARL FACC, ALI FACP CCDS Ot G47.33 OBSTRUCTIVE SLEEP APNEA (ADULT) (PEDIATR 12/09/2017 ENOCH CARL FACC, ALI FACP CCDS Ot I10 ESSENTIAL (PRIMARY) HYPERTENSION 12/09/2017 ENOCH CARL FACC, ALI FACP CCDS Ot I25.10 ATHSCL HEART DISEASE OF [place] CORONARY 12/09/2017 ENOCH CARL FACC, ALI FACP CCDS Ot I50.23 ACUTE ON CHRONIC SYSTOLIC (CONGESTIVE) H 12/09/2017 ENOCH CARL FACC, ALI FACP CCDS Ot R06.02 SHORTNESS OF BREATH 12/09/2017 ENOCH CARL FACC, ALI FACP CCDS Ot E66.01 MORBID (SEVERE) OBESITY DUE TO EXCESS CA 12/09/2017 ENOCH CARL FACC, ALI FACP CCDS Ot E78.4 OTHER HYPERLIPIDEMIA 12/09/2017 ENOCH CARL FACC, ALI FACP CCDS Ot G47.33 OBSTRUCTIVE SLEEP APNEA (ADULT) (PEDIATR 12/09/2017 ENOCH CARL FACC, ALI FACP CCDS Ot I11.0 HYPERTENSIVE HEART DISEASE WITH HEART FA 12/09/2017 ENOCH CARL FACC, ALI FACP CCDS Ot I25.10 ATHSCL HEART DISEASE OF [place] CORONARY 12/09/2017 ENOCH CARL FACC, ALI FACP CCDS Ot I50.23 ACUTE ON CHRONIC SYSTOLIC (CONGESTIVE) H 12/09/2017 ENOCH CARL FACC, ALI FACP CCDS Ot R06.02 SHORTNESS OF BREATH 12/09/2017 ROBERT ALCARAZ MD Ot I51.7 CARDIOMEGALY 12/09/2017 ROBERT ALCARAZ MD Ot J90 PLEURAL EFFUSION, NOT ELSEWHERE CLASSIFI 12/09/2017 ROBERT ALCARAZ MD Ot J98.11 ATELECTASIS 12/09/2017 POOJA, SURINDER R SEAM CLOSER Ot R06.02 SHORTNESS OF BREATH 12/09/2017 MARIE PATTONNatasha Hightower SEAM CLOSER Ot I25.10 ATHSCL HEART DISEASE OF [place] CORONARY 12/09/2017 MARIE PATTONNatasha Hightower SEAM CLOSER Ot I51.7 CARDIOMEGALY 12/09/2017 POOJA SURINDER Hightower SEAM CLOSER Ot J90 PLEURAL EFFUSION, NOT ELSEWHERE CLASSIFI 12/09/2017 ARI CARL, TIMOTEO Sanchez Ot M43.06 SPONDYLOLYSIS, LUMBAR REGION 12/09/2017 ENOCH HENSONC, ALI FACP CCDS Ot G47.33 OBSTRUCTIVE SLEEP APNEA (ADULT) (PEDIATR 12/09/2017 ENOCH HENSONC, ALI FACP CCDS Ot I25.10 ATHSCL HEART DISEASE OF [place] CORONARY 12/09/2017 ENOCH CARL FACC, ALI FACP CCDS Ot I25.5 ISCHEMIC CARDIOMYOPATHY 12/09/2017 ENOCH CARL FACC, ALI FACP CCDS Ot I50.23 ACUTE ON CHRONIC SYSTOLIC (CONGESTIVE) H 12/09/2017 ENOCH CARL FACC, ALI FACP CCDS Ot I65.23 OCCLUSION AND STENOSIS OF BILATERAL [place] 12/09/2017 ENOCH CARL FACC, ALI FACP CCDS Ot I70.0 ATHEROSCLEROSIS OF [place] 12/09/2017 ENOCH CARL FACC, ALI FACP CCDS Ot 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 12/09/2017 ENOCH CARL FACC, ALI FACP CCDS Ot J43.8 OTHER EMPHYSEMA 12/09/2017 ENOCH CARL FACC, ALI FACP CCDS Ot M54.5 LOW BACK PAIN 12/09/2017 ROBERT ALCARAZ MD Ot I50.9 HEART FAILURE, UNSPECIFIED 12/09/2017 ROBERT ALCARAZ MD Ot J44.9 CHRONIC OBSTRUCTIVE PULMONARY DISEASE, U 12/17/2017 ENOCH CARL FACC, ALI FACP CCDS Ot E66.8 OTHER OBESITY 12/17/2017 ENOCH CARL FACC, ALI FACP CCDS Ot G47.33 OBSTRUCTIVE SLEEP APNEA (ADULT) (PEDIATR 12/17/2017 ENOCH CARL FACC, ALI FACP CCDS Ot I25.10 ATHSCL HEART DISEASE OF [place] CORONARY 12/17/2017 ENOCH CARL FACC, ALI FACP CCDS Ot I25.2 OLD MYOCARDIAL INFARCTION 12/17/2017 ENOCH CARL FACC, ALI FACP CCDS Ot I25.5 ISCHEMIC CARDIOMYOPATHY 12/17/2017 ENOCH HENSONC, ALI FACP CCDS Ot I50.22 CHRONIC SYSTOLIC (CONGESTIVE) HEART FAIL 12/17/2017 ENOCH CARL FACC, ALI FACP CCDS Ot J43.8 OTHER EMPHYSEMA 12/17/2017 ENOCH CARL FACC, ALI FACP CCDS Ot R06.02 SHORTNESS OF BREATH 12/17/2017 ENOCH CARL FACC, ALI FACP CCDS Ot R73.02 IMPAIRED GLUCOSE TOLERANCE (ORAL) 12/22/2017 ENOCH HENSONC, ALI FACP CCDS Ot E66.8 OTHER OBESITY 12/22/2017 ENOCH CARL FACC, ALI FACP CCDS Ot G47.33 OBSTRUCTIVE SLEEP APNEA (ADULT) (PEDIATR 12/22/2017 ENOCH CARL FACC, ALI FACP CCDS Ot I21.9 ACUTE MYOCARDIAL INFARCTION, UNSPECIFIED 12/22/2017 ENOCH CARL FACC, ALI FACP CCDS Ot I25.10 ATHSCL HEART DISEASE OF [place] CORONARY 12/22/2017 ENOCH HENSONC, ALI FACP CCDS Ot I25.2 OLD MYOCARDIAL INFARCTION 12/22/2017 ENOCH CARL FACC, ALI FACP CCDS Ot I25.5 ISCHEMIC CARDIOMYOPATHY 12/22/2017 ENOCH CARL FACC, ALI FACP CCDS Ot I50.22 CHRONIC SYSTOLIC (CONGESTIVE) HEART FAIL 12/22/2017 ENOCH CARL FACC, ALI FACP CCDS Ot J43.8 OTHER EMPHYSEMA 12/22/2017 ENOCH CARL FACC, ALI FACP CCDS Ot R06.02 SHORTNESS OF BREATH 12/22/2017 ENOCH CARL FACC, ALI FACP CCDS Ot R73.02 IMPAIRED GLUCOSE TOLERANCE (ORAL) 12/28/2017 CECE [place] APRN Ot E66.2 MORBID (SEVERE) OBESITY WITH ALVEOLAR HY 12/28/2017 CECE [place] SEAM CLOSER Ot J43.8 OTHER EMPHYSEMA 12/28/2017 ROBERT ALCARAZ MD Ot I50.9 HEART FAILURE, UNSPECIFIED 12/28/2017 ROBERT ALCARAZ MD Ot J44.9 CHRONIC OBSTRUCTIVE PULMONARY DISEASE, U 01/02/2018 CECE [place] SEAM CLOSER Ot E66.2 MORBID (SEVERE) OBESITY WITH ALVEOLAR HY 01/02/2018 CECE [place] SEAM CLOSER Ot J43.8 OTHER EMPHYSEMA 01/18/2018 ROBERT ALCARAZ MD Ot J44.9 CHRONIC OBSTRUCTIVE PULMONARY DISEASE, U 04/05/2018 ENOCH CARL FACC, ALI FACP CCDS Ot J44.9 CHRONIC OBSTRUCTIVE PULMONARY DISEASE, U 04/05/2018 ENOCH CARL [place]AC[place], ALI FACP CCDS Ot R06.02 SHORTNESS OF BREATH 04/05/2018 ENOCH CARL FACC, ALI FACP CCDS Ot J44.9 CHRONIC OBSTRUCTIVE PULMONARY DISEASE, U 04/05/2018 ENOCH CARL FACC, ALI FACP CCDS Ot R06.02 SHORTNESS OF BREATH 04/07/2018 ENOCH CARL FAC[place], ALI FACP CCDS Ot J44.9 CHRONIC OBSTRUCTIVE PULMONARY DISEASE, U 04/07/2018 ENOCH CARL FAC[place], ALI FACP CCDS Ot R06.02 SHORTNESS OF BREATH 04/28/2018 COLT MARCOS L SENIOR EXECUTIVE ASSISTANT Ot E66.2 MORBID (SEVERE) OBESITY WITH ALVEOLAR HY 04/28/2018 SEDA MARCOSHER L SENIOR EXECUTIVE ASSISTANT Ot E78.5 HYPERLIPIDEMIA, UNSPECIFIED 04/28/2018 AZRAMA COLT L SENIOR EXECUTIVE ASSISTANT Ot I11.0 HYPERTENSIVE HEART DISEASE WITH HEART FA 04/28/2018 AZRAMASEDACOLT L SENIOR EXECUTIVE ASSISTANT Ot I25.10 ATHSCL HEART DISEASE OF [place] CORONARY 04/28/2018 COLT MARCOS L SENIOR EXECUTIVE ASSISTANT Ot I25.5 ISCHEMIC CARDIOMYOPATHY 04/28/2018 SEDA MARCOSHER L SENIOR EXECUTIVE ASSISTANT Ot I50.22 CHRONIC SYSTOLIC (CONGESTIVE) HEART FAIL 04/28/2018 SEDA MARCOSHER L SENIOR EXECUTIVE ASSISTANT Ot J44.9 CHRONIC OBSTRUCTIVE PULMONARY DISEASE, U 04/28/2018 SEDA MARCOSHER L SENIOR EXECUTIVE ASSISTANT Ot R09.02 HYPOXEMIA 04/28/2018 PRITI COLT L SENIOR EXECUTIVE ASSISTANT Ot Z68.41 BODY MASS INDEX (BMI) 40.0-44.9, ADULT 04/28/2018 PRITI COLT L SENIOR EXECUTIVE ASSISTANT Ot Z87.891 PERSONAL HISTORY OF NICOTINE DEPENDENCE 04/28/2018 SEDA MARCOSHER L SENIOR EXECUTIVE ASSISTANT Ot E66.2 MORBID (SEVERE) OBESITY WITH ALVEOLAR HY 04/28/2018 SEDA MARCOSHER L SENIOR EXECUTIVE ASSISTANT Ot E78.5 HYPERLIPIDEMIA, UNSPECIFIED 04/28/2018 AZRAMA COLT L SENIOR EXECUTIVE ASSISTANT Ot I11.0 HYPERTENSIVE HEART DISEASE WITH HEART FA 04/28/2018 AZRAMA COLT L SENIOR EXECUTIVE ASSISTANT Ot I25.10 ATHSCL HEART DISEASE OF [place] CORONARY 04/28/2018 COLT MARCOS SENIOR EXECUTIVE ASSISTANT Ot I25.5 ISCHEMIC CARDIOMYOPATHY 04/28/2018 COLT MARCOS SENIOR EXECUTIVE ASSISTANT Ot I50.22 CHRONIC SYSTOLIC (CONGESTIVE) HEART FAIL 04/28/2018 COLT MARCOS SENIOR EXECUTIVE ASSISTANT Ot J44.9 CHRONIC OBSTRUCTIVE PULMONARY DISEASE, U 04/28/2018 COLT MARCOS SENIOR EXECUTIVE ASSISTANT Ot R09.02 HYPOXEMIA 04/28/2018 COLT MARCOS SENIOR EXECUTIVE ASSISTANT Ot Z68.41 BODY MASS INDEX (BMI) 40.0-44.9, ADULT 04/28/2018 COLT MARCOS SENIOR EXECUTIVE ASSISTANT Ot Z87.891 PERSONAL HISTORY OF NICOTINE DEPENDENCE 05/24/2018 ENOCH CARL FACC, ALI FACP CCDS Ot J44.9 CHRONIC OBSTRUCTIVE PULMONARY DISEASE, U 05/24/2018 ENOCH CARL FACC, ALI FACP CCDS Ot R06.02 SHORTNESS OF BREATH 06/05/2018 ENOCH CARL FACC, ALI FACP CCDS Ot J44.9 CHRONIC OBSTRUCTIVE PULMONARY DISEASE, U 06/05/2018 ENOCH CARL FACC, ALI FACP CCDS Ot R06.02 SHORTNESS OF BREATH 06/15/2018 ROBERT ALCARAZ MD Ot J44.9 CHRONIC OBSTRUCTIVE PULMONARY DISEASE, U 06/15/2018 ROBERT ALCARAZ MD Ot J44.9 CHRONIC OBSTRUCTIVE PULMONARY DISEASE, U 08/17/2018 ROBERT ALCARAZ MD Ot J44.9 CHRONIC OBSTRUCTIVE PULMONARY DISEASE, U 08/22/2018 SURINDER PATTON APRN Ot Z51.81 ENCOUNTER FOR THERAPEUTIC DRUG LEVEL MON 08/22/2018 SURINDER PATTON APRN Ot Z79.891 MCC (CURRENT) USE OF OPIATE ANALGE 08/26/2018 MINNIE BELL MD Ot J32.0 CHRONIC MAXILLARY SINUSITIS 08/26/2018 MINNIE BELL MD Ot J38.7 OTHER DISEASES OF LARYNX 08/26/2018 MINNIE BELL MD Ot J43.9 EMPHYSEMA, UNSPECIFIED 08/26/2018 MINNIE BELL MD Ot Z95.810 PRESENCE OF AUTOMATIC (IMPLANTABLE) CARD 09/07/2018 MINNIE BELL MD Ot J38.7 OTHER DISEASES OF LARYNX 09/07/2018 MINNIE BELL MD Ot Z01.811 ENCOUNTER FOR PREPROCEDURAL RESPIRATORY 09/07/2018 MINNIE BELL MD, Ot Z01.812 ENCOUNTER FOR PREPROCEDURAL LABORATORY E 09/07/2018 MINNIE BELL MD, Ot Z11.2 ENCOUNTER FOR SCREENING FOR OTHER BACTER Procedures There is no data. Results Test Result Range [id number] - 12/24/16 09:08 Serum or plasma urea nitrogen measurement (mass/volume) 17 mg/dL 7-18 Serum or plasma creatinine measurement (mass/volume) 0.76 mg/dL 0.60-1.30 Serum or plasma urea nitrogen/creatinine mass ratio 22 NRG Serum or plasma creatinine measurement with calculation of estimated glomerular filtration rate > NRG Whole blood basic metabolic panel - 02/10/17 10:25 Serum or plasma sodium measurement (moles/volume) 137 mmol/L 135-145 Serum or plasma potassium measurement (moles/volume) 4.8 mmol/L 3.6-5.0 Serum or plasma chloride measurement (moles/volume) 102 mmol/L 98-107 Carbon dioxide 25 mmol/L 21-32 Serum or plasma anion gap determination (moles/volume) 10 mmol/L 5-14 Serum or plasma urea nitrogen measurement (mass/volume) 27 mg/dL 7-18 Serum or plasma creatinine measurement (mass/volume) 0.88 mg/dL 0.60-1.30 Serum or plasma urea nitrogen/creatinine mass ratio 31 NRG Serum or plasma creatinine measurement with calculation of estimated glomerular filtration rate > NRG Serum or plasma glucose measurement (mass/volume) 101 mg/dL 70-105 Serum or plasma calcium measurement (mass/volume) 9.8 mg/dL 8.5-10.1 Automated blood complete blood count (hemogram) panel - 03/16/17 10:10 Blood leukocytes automated count (number/volume) 11.7 10*3/uL 4.3-11.0 Blood erythrocytes automated count (number/volume) 4.58 10*6/uL 4.35-5.85 Venous blood hemoglobin measurement (mass/volume) 14.7 g/dL 13.3-17.7 Blood hematocrit (volume fraction) 44 % 40-54 Automated erythrocyte mean corpuscular volume 96 [foz_us] 80-99 Automated erythrocyte mean corpuscular hemoglobin (mass per erythrocyte) 32 pg 25-34 Automated erythrocyte mean corpuscular hemoglobin concentration measurement ( mass/volume) 34 g/dL 32-36 Automated erythrocyte distribution width ratio 14.7 % 10.0-14.5 Automated blood platelet count (count/volume) 219 10*3/uL 130-400 Automated blood platelet mean volume measurement 10.1 [foz_us] 7.4-10.4 PT panel in platelet poor plasma by coagulation assay - 03/16/17 10:10 Prothrombin time (PT) in platelet poor plasma by coagulation assay 13.2 s 12.2-14.7 INR in platelet poor plasma or blood by coagulation assay 1.0 0.8-1.4 Activated partial thromboplastin time (aPTT) in platelet poor plasma bycoagulation assay - 03/16/17 10:10 Activated partial thromboplastin time (aPTT) in platelet poor plasma bycoagulation assay 37 s 24-35 Arterial blood gas measurement - 12/27/17 16:38 Blood pCO2 48 mm[Hg] 35-45 Blood pO2 62 mm[Hg] 79-93 Arterial blood bicarbonate measurement (moles/volume) 28 mmol/L 23-27 Arterial blood base excess by calculation 3.4 mmol/L -2.5 -2.5 Arterial blood oxygen saturation measurement 92 % 94-100 * Inhaled oxygen flow rate 2L NRG Arterial blood pH measurement with patient temperature correction 7.38 7.37-7.43 Arterial blood carbon dioxide, total measurement (moles/volume) 29.6 mmol/L 21.0-31.0 Body site RIGHT RADIAL NRG Assessment of wrist artery patency prior to arterial puncture POSITIVE NRG Setting of ventilation mode NO NRG Measurement of body temperature 98.6 NRG Automated blood complete blood count (hemogram) panel - 04/26/18 10:36 Blood leukocytes automated count (number/volume) 9.2 10*3/uL 4.3-11.0 Blood erythrocytes automated count (number/volume) 4.51 10*6/uL 4.35-5.85 Venous blood hemoglobin measurement (mass/volume) 14.9 g/dL 13.3-17.7 Blood hematocrit (volume fraction) 43 % 40-54 Automated erythrocyte mean corpuscular volume 96 [foz_us] 80-99 Automated erythrocyte mean corpuscular hemoglobin (mass per erythrocyte) 33 pg 25-34 Automated erythrocyte mean corpuscular hemoglobin concentration measurement ( mass/volume) 35 g/dL 32-36 Automated erythrocyte distribution width ratio 14.9 % 10.0-14.5 Automated blood platelet count (count/volume) 189 10*3/uL 130-400 Automated blood platelet mean volume measurement 10.6 [foz_us] 7.4-10.4 Comprehensive metabolic panel - 04/26/18 10:36 Serum or plasma sodium measurement (moles/volume) 133 mmol/L 135-145 Serum or plasma potassium measurement (moles/volume) 4.8 mmol/L 3.6-5.0 Serum or plasma chloride measurement (moles/volume) 99 mmol/L 98-107 Carbon dioxide 23 mmol/L 21-32 Serum or plasma anion gap determination (moles/volume) 11 mmol/L 5-14 Serum or plasma urea nitrogen measurement (mass/volume) 51 mg/dL 7-18 Serum or plasma creatinine measurement (mass/volume) 1.30 mg/dL 0.60-1.30 Serum or plasma urea nitrogen/creatinine mass ratio 39 NRG Serum or plasma creatinine measurement with calculation of estimated glomerular filtration rate 56 NRG Serum or plasma glucose measurement (mass/volume) 94 mg/dL 70-105 Serum or plasma calcium measurement (mass/volume) 9.3 mg/dL 8.5-10.1 Serum or plasma total bilirubin measurement (mass/volume) 0.8 mg/dL 0.1-1.0 Serum or plasma alkaline phosphatase measurement (enzymatic activity/volume) 105 U/L 40-136 Serum or plasma aspartate aminotransferase measurement (enzymatic activity/ volume) 26 U/L 5-34 Serum or plasma alanine aminotransferase measurement (enzymatic activity/volume ) 33 U/L 0-55 Serum or plasma protein measurement (mass/volume) 8.2 g/dL 6.4-8.2 Serum or plasma albumin measurement (mass/volume) 4.5 g/dL 3.2-4.5 Lipid 1996 panel - 04/26/18 10:36 Serum or plasma triglyceride measurement (mass/volume) 120 mg/dL <150 Serum or plasma cholesterol measurement (mass/volume) 119 mg/dL < 200 Serum or plasma cholesterol in HDL measurement (mass/volume) 29 mg/ dL 40-60 Cholesterol in LDL [mass/volume] in serum or plasma by direct assay 71 mg/dL 1-129 Serum or plasma cholesterol in VLDL measurement (mass/volume) 24 mg/ dL 5-40 PT panel in platelet poor plasma by coagulation assay - 04/26/18 10:36 Prothrombin time (PT) in platelet poor plasma by coagulation assay 13.9 s 12.2-14.7 INR in platelet poor plasma or blood by coagulation assay 1.1 0.8-1.4 Activated partial thromboplastin time (aPTT) in platelet poor plasma bycoagulation assay - 04/26/18 10:36 Activated partial thromboplastin time (aPTT) in platelet poor plasma bycoagulation assay 36 s 24-35 Methicillin resistant Staphylococcus aureus (MRSA) screening culture - 10:36 Methicillin resistant Staphylococcus aureus (MRSA) screening culture NEG NRG Urine drug screening test - 08/17/18 14:49 Urine amphetamines detection by screening method Negative NRG Urine creatinine measurement (mass/volume) 73 % NRG Urine drug screening test Negative NRG Urine acetaminophen measurement (mass/volume) Negative NRG Urine barbiturates detection by screening method Negative NRG Urine benzodiazepines measurement by screening method (mass/volume) Negative NRG Cocaine [mass/volume] in urine Negative NRG Ethanol [mass/volume] in urine Negative NRG Serum or plasma 5-dgcbnfqgbi-0,0-kchmgrvt-6,3-diphenylpyrrolidine (eddp) detection Negative NRG Urine opiates detection Negative NRG Urine phencyclidine (PCP) detection Negative NRG Propoxyphene [mass/volume] in urine Negative NRG Urine salicylates measurement (mass/volume) Negative NRG Urine tetrahydrocannabinol detection by screening method Negative NRG [id number] - 08/25/18 11:02 Serum or plasma urea nitrogen measurement (mass/volume) 22 mg/dL 7-18 Serum or plasma creatinine measurement (mass/volume) 0.91 mg/dL 0.60-1.30 Serum or plasma urea nitrogen/creatinine mass ratio 24 NRG Serum or plasma creatinine measurement with calculation of estimated glomerular filtration rate > NRG Methicillin resistant Staphylococcus aureus (MRSA) screening culture - 14:10 Methicillin resistant Staphylococcus aureus (MRSA) screening culture NEG NRG Complete blood count (CBC) with automated white blood cell (WBC) differential - 09/05/18 14:12 Blood leukocytes automated count (number/volume) 8.0 10*3/uL 4.3-11.0 Blood erythrocytes automated count (number/volume) 4.46 10*6/uL 4.35-5.85 Venous blood hemoglobin measurement (mass/volume) 14.9 g/dL 13.3-17.7 Blood hematocrit (volume fraction) 44 % 40-54 Automated erythrocyte mean corpuscular volume 98 [foz_us] 80-99 Automated erythrocyte mean corpuscular hemoglobin (mass per erythrocyte) 33 pg 25-34 Automated erythrocyte mean corpuscular hemoglobin concentration measurement ( mass/volume) 34 g/dL 32-36 Automated erythrocyte distribution width ratio 14.1 % 10.0-14.5 Automated blood platelet count (count/volume) 171 10*3/uL 130-400 Automated blood platelet mean volume measurement 10.2 [foz_us] 7.4-10.4 Automated blood neutrophils/100 leukocytes 74 % 42-75 Automated blood lymphocytes/100 leukocytes 11 % 12-44 Blood monocytes/100 leukocytes 12 % 0-12 Automated blood eosinophils/100 leukocytes 3 % 0-10 Automated blood basophils/100 leukocytes 0 % 0-10 Blood neutrophils automated count (number/volume) 5.9 10*3 1.8-7.8 Blood lymphocytes automated count (number/volume) 0.9 10*3 1.0-4.0 Blood monocytes automated count (number/volume) 1.0 10*3 0.0-1.0 Automated eosinophil count 0.3 10*3/uL 0.0-0.3 Automated blood basophil count (count/volume) 0.0 10*3/uL 0.0-0.1 Whole blood basic metabolic panel - 09/05/18 14:12 Serum or plasma sodium measurement (moles/volume) 137 mmol/L 135-145 Serum or plasma potassium measurement (moles/volume) 5.3 mmol/L 3.6-5.0 Serum or plasma chloride measurement (moles/volume) 104 mmol/L 98-107 Carbon dioxide 22 mmol/L 21-32 Serum or plasma anion gap determination (moles/volume) 11 mmol/L 5-14 Serum or plasma urea nitrogen measurement (mass/volume) 37 mg/dL 7-18 Serum or plasma creatinine measurement (mass/volume) 1.24 mg/dL 0.60-1.30 Serum or plasma urea nitrogen/creatinine mass ratio 30 NRG Serum or plasma creatinine measurement with calculation of estimated glomerular filtration rate 59 NRG Serum or plasma glucose measurement (mass/volume) 90 mg/dL 70-105 Serum or plasma calcium measurement (mass/volume) 9.4 mg/dL 8.5-10.1 Encounters ACCT No. Visit Date/Time Discharge Status Pt. Type Provider Facility Loc./Unit Complaint [id number] 09/05/2018 13:19:00 09/05/2018 14:25:00 DIS Outpatient MINNIE BELL MD [facility] PREOP EPIGLOTIC LESION [id number] 08/25/2018 10:57:00 08/25/2018 23:59:59 CLS Outpatient MINNIE BELL MD [facility] RAD LARYNGEAL ULCER [id number] 08/17/2018 14:33:00 08/17/2018 23:59:59 CLS Outpatient SURINDER PATTON APRN [facility] LAB Z79.891 [id number] 06/06/2018 13:00:00 06/06/2018 23:59:59 CLS Preadmit ENOCH CARL FACC, JOSE CARLOS GARCIA CCDS [facility] PULM COPD [id number] 03/07/2018 14:25:00 06/05/2018 00:01:00 DIS Outpatient ENOCH CARL FACC, JOSE CARLOS FACOrestes CCDS [facility] PULM COPD [id number] 04/26/2018 10:10:00 04/26/2018 23:59:59 CLS Outpatient COLT MARCOS [facility] CATH CHEST DISCOMFORT [id number] 01/17/2018 14:45:00 01/17/2018 23:59:59 CLS Outpatient ROBERT ALCARAZ MD [facility] RAD COPD,COUGH,HYPOXIA [id number] 12/31/2017 11:45:00 12/31/2017 23:59:59 CLS Preadmit CECE PHOENIX APRN [facility] RAD J43.8 COPD [id number] 12/27/2017 16:10:00 12/27/2017 23:59:59 CLS Outpatient CECE PHOENIX SEAM CLOSER [facility] LAB J43.8 [id number] 12/27/2017 15:45:00 12/27/2017 23:59:59 CLS Preadmit CECE PHOENIX SEAM CLOSER [facility] RT J43.8 COPD [id number] 12/21/2017 12:07:00 12/21/2017 23:59:59 CLS Outpatient ENOCH CARL FACC, JOSE CARLOS FACP CCDS [facility] CARD SOB,CAD [id number] 12/16/2017 13:32:00 12/16/2017 23:59:59 CLS Outpatient ENOCH CARL FACC, JOSE CARLOS FACP CCDS [facility] CARD SOB,CAD [id number] 12/07/2017 14:34:00 12/07/2017 23:59:59 CLS Outpatient ROBERT ALCARAZ MD [facility] RAD COPD,CHF [id number] 03/16/2017 09:49:00 03/16/2017 16:30:00 DIS Outpatient WHIT MARCIAL DO [facility] RAD BACK PAIN [id number] 02/10/2017 09:59:00 02/10/2017 23:59:59 CLS Outpatient ENOCH CARL FACC, JOSE CARLOS FACP CCDS [facility] RAD CAD,HTN,HLP, ISCHEMIC CARDIOMYOPATHY [id number] 02/05/2017 13:45:00 02/05/2017 23:59:59 CLS Outpatient TIMOTEO CHAPMAN MD [facility] RAD LOW BACK PAIN [id number] 01/01/2017 08:32:00 01/01/2017 09:41:00 DIS Outpatient TIMOTEO CHAPMAN MD [facility] CARD DISC DISORDER, SACOROCOCCYGEAL DISORDER [id number] 12/24/2016 08:50:00 12/24/2016 23:59:59 CLS Outpatient SURINDER PATTON APRN [facility] RAD ABNORMAL CHEST XRAY [id number] 12/22/2016 08:59:00 12/22/2016 23:59:59 CLS Outpatient SURINDER PATTON APRN [facility] RAD SOB [id number] 12/21/2016 08:20:00 12/21/2016 16:30:00 DIS Outpatient CARMELO DAVIS DO [facility] SLEEP COPD,CAD,FATIGUE [id number] 10/29/2016 07:47:00 10/29/2016 23:59:59 CLS Outpatient ENOCH CARL FACC, ALI FACP CCDS [facility] CARD CAD,VIJI [id number] 10/27/2016 15:00:00 10/27/2016 23:59:59 CLS Outpatient ENOCH CARL FACC, ALI FACP CCDS [facility] CARD SOB,CAD [id number] 10/21/2016 10:59:00 10/21/2016 23:59:59 CLS Outpatient ROBERT ALCARAZ MD [facility] RAD DYSPNEA [id number] 08/20/2015 07:20:00 08/21/2015 09:50:00 DIS Outpatient ENOCH CARL FAC[place], ALI FACP CCDS [facility] CATH [id number] 08/12/2015 12:32:00 08/12/2015 13:57:00 DIS Outpatient TIMOTEO CHAPMAN MD [facility] CARD [id number] 08/07/2015 13:02:00 08/07/2015 23:59:59 CLS Outpatient ROBERT ALCARAZ MD [facility] RT [id number] 05/09/2014 15:46:00 05/09/2014 23:59:59 CLS Outpatient ENOCH CARL FACC, ALI FACP CCDS [facility] LAB [id number] 09/09/2018 08:00:00 PEN Preadmit MINNIE BELL MD [facility] SDC EPIGLOTIC LESION [id number] 10/16/2016 06:49:00 Document Registration [id number] 01/23/2015 10:03:00 Document Registration [id number] 10/14/2012 02:00:00 Document Registration [id number] 05/06/2012 15:54:00 Document Registration [id number] 05/05/2012 17:07:00 Document Registration [id number] 02/09/2012 05:40:00 Document Registration [id number] 02/08/2012 10:04:00 Document Registration
== END 2018-09-09 11:25 | disposition home or self-care (01) ==
LOC: SDC 07:35
PROVIDERS: ATTEND Otolaryngology Otolaryngology/Facial Plastic Surgery
DX: C32.1 Malignant neoplasm of supraglottis (principal); I25.10 Atherosclerotic heart disease of native coronary artery without angina pectoris; I10 Essential (primary) hypertension; J44.9 Chronic obstructive pulmonary disease, unspecified; I65.23 Occlusion and stenosis of bilateral carotid arteries; K21.9 Gastro-esophageal reflux disease without esophagitis; Z87.891 Personal history of nicotine dependence; Z79.02 Long term (current) use of antithrombotics/antiplatelets; Z79.899 Other long term (current) drug therapy
CPT/HCPCS: 88305; 88331; 88342; 94640

== ENCOUNTER → 2018-09-20 | Outpatient (CLI) | payer OTHER ==
[~2018-09-20] MED LIST changes: +HYDR-3812 PO; -LIDOCAINE/EPI 1%-1:200,000 (XYLOCAINE) 10 ML VIAL ONE
--- NOTE | 2018-09-20 16:24 | Diagnostic Imaging Report ---
INDICATION: Head and neck cancer, initial staging. Patient has an epiglottic lesion on the laryngeal surface. TECHNIQUE: Serum blood glucose level at the time of injection is 101 mg/dL. The patient was administered 12.1 mCi F-18 FDG intravenously administered in the right wrist and PET imaging was performed from the top of skull to the mid thighs. Noncontrast CT was also performed for attenuation correction and anatomic correlation. COMPARISON: No prior PET studies available for comparison. Comparison is made with CT neck study from 08/25/2018. FINDINGS: There is symmetric activity throughout the brain. Oropharyngeal activity in the neck is noted consistent with physiologic activity within Waldeyer's ring. There is a focus of hypermetabolism noted at the base of the epiglottis on the right side anteriorly near the junction with the false vocal folds. This demonstrates an SUV max of approximately 5 and may represent the patient's primary neoplasm. No definite hypermetabolic neck lymph nodes are identified to suggest metastatic disease. Imaging through the chest demonstrates normal physiologic activity in the mediastinum and van. Pulmonary parenchyma is unremarkable. There is physiologic activity within the GI and tracts of the abdomen and pelvis. No abnormal hypermetabolism is seen. IMPRESSION: Abnormal focus of hypermetabolism is identified at the base of the epiglottis on the right side anteriorly near the junction with the false folds, consistent with patient's known primary neck neoplasm. No findings to suggest metastatic disease are identified. Dictated by: Dictated on workstation # [id number]
== END ==
LOC: RAD 11:03
PROVIDERS: ATTEND Otolaryngology Otolaryngology/Facial Plastic Surgery
DX: C76.0 Malignant neoplasm of head, face and neck (principal); J38.7 Other diseases of larynx

== ENCOUNTER 2018-10-05 18:23 | Emergency (ER) | payer OTHER ==
[~2018-10-05] VITALS: Ht 182.9 cm; Wt 136.1 kg
[2018-10-05] MEDS ORDERED: TRANEXAMIC ACID 100 MG/ML 10 ML INJECTION IV ONE ×2 (18:37→19:26)
[2018-10-05] MEDS ORDERED: LACTATED RINGERS 1,000 ML IV ONE ×2 (18:37→20:48)
[2018-10-05 18:40] LABS: BASOPHILS % (AUTO) 0 % (0-10); EOSINOPHILS % (AUTO) 0 % (0-10); HEMATOCRIT 43 % (40-54); HEMOGLOBIN 14.6 G/DL (13.3-17.7); LYMPHOCYTES # (AUTO) 0.6 X 10^3 (1.0-4.0); LYMPHOCYTES % (AUTO) 5 % (12-44); MEAN CORPUSCULAR HEMOGLOBIN 33 PG (25-34); MEAN CORPUSCULAR HGB CONC 34 G/DL (32-36); MEAN CORPUSCULAR VOLUME 97 FL (80-99); MEAN PLATELET VOLUME 10.2 FL (7.4-10.4); MONOCYTES # (AUTO) 0.3 X 10^3 (0.0-1.0); MONOCYTES % (AUTO) 2 % (0-12); NEUTROPHILS # (AUTO) 12.5 X 10^3 (1.8-7.8); NEUTROPHILS % (AUTO) 93 % (42-75); PLATELET COUNT 202 10^3/uL (130-400); RED BLOOD COUNT 4.45 10^6/uL (4.35-5.85); RED CELL DISTRIBUTION WIDTH 14.3 % (10.0-14.5); WHITE BLOOD COUNT 13.4 10^3/uL (4.3-11.0)
[2018-10-05 18:55] LABS: BAND NEUTROPHILS 7 %; NEUTROPHILS % (MANUAL) 89 %
[2018-10-05 18:56] LABS: BASOPHILS % (MANUAL) 0 %; EOSINOPHILS % (MANUAL) 0 %; INR 1.1 (0.8-1.4); LYMPHOCYTES % (MANUAL) 3 %; MONOCYTES % (MANUAL) 1 %; PROTHROMBIN TIME PATIENT 14.2 SEC (12.2-14.7); RBC MORPH NORMAL
[2018-10-05] MEDS ORDERED: fentaNYL INJECTION 100 MCG/2 ML AMP ONE (18:57)
[2018-10-05] MEDS ORDERED: fentaNYL INJECTION 100 MCG/2 ML AMP IVP STA (18:58)
[2018-10-05 19:01] LABS: BUN/CREATININE RATIO 26; CALCIUM 9.4 MG/DL (8.5-10.1); CARBON DIOXIDE 23 MMOL/L (21-32); CHLORIDE 102 MMOL/L (98-107); CREATININE SERUM 0.85 MG/DL (0.60-1.30); GFR ESTIMATED > 60; GLUCOSE 123 MG/DL (70-105); POTASSIUM 5.6 MMOL/L (3.6-5.0); SODIUM 136 MMOL/L (135-145)
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
[2018-10-05] MEDS ORDERED: LIDOCAINE/EPI 2% 1:100,00 (XYLOCAINE) 20 ML VIAL ONE (20:03)
[2018-10-05] MEDS ORDERED: fentaNYL INJECTION 100 MCG/2 ML AMP IVP ONE (22:30)
[2018-10-05 22:40] VITALS: BP 114/72
== END 2018-10-05 22:40 | disposition home or self-care (01) ==
LOC: EDUNIT# 18:23 → ER 18:24
DX: K91.840 Postprocedural hemorrhage of a digestive system organ or structure following a digestive system procedure (principal); K06.8 Other specified disorders of gingiva and edentulous alveolar ridge; E86.0 Dehydration; C14.0 Malignant neoplasm of pharynx, unspecified; J44.9 Chronic obstructive pulmonary disease, unspecified; I25.2 Old myocardial infarction; I10 Essential (primary) hypertension; I25.10 Atherosclerotic heart disease of native coronary artery without angina pectoris; Z95.5 Presence of coronary angioplasty implant and graft; Z87.891 Personal history of nicotine dependence; Z79.02 Long term (current) use of antithrombotics/antiplatelets; Z88.8 Allergy status to other drugs, medicaments and biological substances; Z79.82 Long term (current) use of aspirin
CPT/HCPCS: 12051; 36415; 80048; 85007; 85027; 85610; 85730; 93041; 96361; 96374

== ENCOUNTER → 2018-12-13 | Outpatient (RCR) | payer OTHER | END | disposition home or self-care (01) | LOC: ONC 09-14 13:16 | PROVIDERS: ATTEND Radiology Radiation Oncology | DX: Z51.0 Encounter for antineoplastic radiation therapy (principal); C32.1 Malignant neoplasm of supraglottis; I25.10 Atherosclerotic heart disease of native coronary artery without angina pectoris; I10 Essential (primary) hypertension; J44.9 Chronic obstructive pulmonary disease, unspecified; K21.9 Gastro-esophageal reflux disease without esophagitis; Z87.891 Personal history of nicotine dependence; Z79.02 Long term (current) use of antithrombotics/antiplatelets; Z79.899 Other long term (current) drug therapy | CPT/HCPCS: 77295; 77300; 77307; 77334; 77336; 77417; 99204 ==

== ENCOUNTER 2018-12-16 14:11 | Outpatient (RCR) | payer OTHER ==
[2019-01-06] MEDS ORDERED: PRD20T PO (20:24)
[2019-01-06] MEDS ORDERED: ALBU2.5V4 INH (20:24)
[2019-01-06] MEDS ORDERED: AZIT250T PO (20:24)
== END 2019-03-14 | disposition home or self-care (01) ==
LOC: ONC 14:11
PROVIDERS: ATTEND Radiology Radiation Oncology
DX: Z51.0 Encounter for antineoplastic radiation therapy (principal); C32.1 Malignant neoplasm of supraglottis; I25.10 Atherosclerotic heart disease of native coronary artery without angina pectoris; I10 Essential (primary) hypertension; J44.9 Chronic obstructive pulmonary disease, unspecified; K21.9 Gastro-esophageal reflux disease without esophagitis; Z87.891 Personal history of nicotine dependence; Z79.02 Long term (current) use of antithrombotics/antiplatelets; Z79.899 Other long term (current) drug therapy
CPT/HCPCS: 77336; 77417

== ENCOUNTER 2019-01-06 16:41 | Emergency (ER) | payer OTHER ==
[~2019-01-06] VITALS: Ht 182.9 cm; Wt 130.6 kg
--- OUTSIDE RECORDS SUMMARY | 2019-01-06 16:48 | XMS REPORT | Continuity of Care Document ---
Author Author [facility] Organization [facility] Address Unknown Phone Unavailable Allergies Active Description Code Type Severity Reaction Onset Reported/Identified Relationship to Patient Clinical Status Yes quinine [id number] Drug Allergy Unknown N/A 02/09/2012 Medications There is no data. Problems Date Dx Coded Attending Type Code Diagnosis Diagnosed By 02/09/2012 Ot 272.4 HYPERLIPIDEMIA NEC/NOS 02/09/2012 Ot 401.9 HYPERTENSION NOS 02/09/2012 Ot 412 OLD MYOCARDIAL INFARCT 02/09/2012 Ot 413.9 ANGINA PECTORIS NEC/NOS 02/09/2012 Ot 414.01 CORONARY ATHEROSCLEROSIS OF [place] CORON 02/09/2012 Ot 425.4 PRIM CARDIOMYOPATHY NEC [...] ST 10/14/2012 Ot 414.01 CORONARY ATHEROSCLEROSIS OF [place] CORON 10/14/2012 Ot 414.8 CHR ISCHEMIC HRT [...] DUE TO EXCESS CA 10/28/2016 ENOCH CARL FACCarolian, ALI FACP CCDS Ot E78.4 OTHER HYPERLIPIDEMIA 10/28/2016 ENOCH MD FACC, ALI FACP CCDS Ot G47.33 OBSTRUCTIVE SLEEP APNEA (ADULT) (PEDIATR 10/28/2016 ENOCH CARL FACC, ALI FACP CCDS Ot I10 ESSENTIAL (PRIMARY) HYPERTENSION 10/28/2016 ENOCH CARL FACC, ALI FACP CCDS Ot I25.10 ATHSCL HEART DISEASE OF [place] CORONARY 10/28/2016 ENOCH CARL FACC, ALI FACP [...] CCDS Ot I25.10 ATHSCL HEART DISEASE OF [place] CORONARY 10/30/2016 ENOCH CARL FACC, ALI FACP [...] CCDS Ot I25.10 ATHSCL HEART DISEASE OF [place] CORONARY 10/30/2016 ENOCH EHNSONC, ALI FACP CCDS Ot I50.23 ACUTE ON [...] CCDS Ot I25.10 ATHSCL HEART DISEASE OF [place] CORONARY 11/27/2016 ENOCH CARL FACC, ALI FACP [...] CCDS Ot I25.10 ATHSCL HEART DISEASE OF [place] CORONARY 11/27/2016 ENOCH CARL FACC, ALI FACP [...] CCDS Ot I25.10 ATHSCL HEART DISEASE OF [place] CORONARY 12/15/2016 ENOCH CARL FACC, JOSE CARLOS FACP CCDS Ot I50.23 ACUTE ON CHRONIC SYSTOLIC (CONGESTIVE) H 12/15/2016 ENOCH CARL FACC, JOSE CARLOS FACP CCDS Ot R06.02 SHORTNESS OF BREATH 12/15/2016 ENOCH CRAL FACC, ALI FACP CCDS Ot E66.01 MORBID [...] CCDS Ot I25.10 ATHSCL HEART DISEASE OF [place] CORONARY 12/15/2016 ENOCH CARL FACC, ALI FACP [...] DO Ot I25.10 ATHSCL HEART DISEASE OF [place] CORONARY 12/21/2016 CARMELO DAVIS DO Ot I50.22 [...] CCDS Ot I25.10 ATHSCL HEART DISEASE OF [place] CORONARY 12/22/2016 ENOCH CARL FACC, ALI FACP [...] CCDS Ot I25.10 ATHSCL HEART DISEASE OF [place] CORONARY 12/22/2016 ENOCH CARL FACC, ALI FACP [...] DO Ot I25.10 ATHSCL HEART DISEASE OF [place] CORONARY 12/22/2016 CARMELO DAVIS DO Ot I50.22 CHRONIC SYSTOLIC (CONGESTIVE) HEART FAIL 12/22/2016 CARMELO DAVIS DO Ot J43.8 OTHER EMPHYSEMA 12/22/2016 CARMELO DAVIS DO Ot R53.83 OTHER FATIGUE 12/22/2016 CARMELO DAVIS DO Ot Z72.0 TOBACCO USE 12/23/2016 SURINDER PATTON APRN Ot R06.02 SHORTNESS OF BREATH 12/25/2016 SURINDER PATTON APRN Ot I25.10 ATHSCL HEART DISEASE OF [place] CORONARY 12/25/2016 POOJA SURINDER Hightower TRUCK DOCK MATERIAL MOVER Ot I51.7 CARDIOMEGALY 12/25/2016 POOJA SURINDER Hightower TRUCK DOCK MATERIAL MOVER Ot J90 PLEURAL EFFUSION, NOT ELSEWHERE CLASSIFI 12/30/2016 POOJA SURINDER Hightower TRUCK DOCK MATERIAL MOVER Ot I25.10 ATHSCL HEART DISEASE OF [place] CORONARY 12/30/2016 SURINDER PATTON TRUCK DOCK MATERIAL MOVER Ot I51.7 CARDIOMEGALY 12/30/2016 SURINDER PATTON TRUCK DOCK MATERIAL MOVER Ot J90 PLEURAL EFFUSION, NOT ELSEWHERE CLASSIFI 01/01/2017 TIMOTEO CHAPMAN MD, Ot M47.816 SPONDYLOSIS W/O MYELOPATHY OR RADICULOPA 01/01/2017 TIMOTEO CHAPMAN MD, Ot M51.16 INTERVERTEBRAL DISC DISORDERS W RADICULO 01/01/2017 TIMOTEO CHAPMAN MD, Ot M53.3 SACROCOCCYGEAL DISORDERS, NOT ELSEWHERE 01/01/2017 TIMOTEO CHAPMAN MD Ot Z79.02 MASTER AT ARMS (CURRENT) USE OF ANTITHROMBOTI 01/01/2017 TIMOTEO CHAPMAN MD Ot Z79.899 OTHER SKILLED NURSING (CURRENT) DRUG THERAPY 01/06/2017 TIMOTEO CHAPMAN MD, Ot M47.816 SPONDYLOSIS W/O MYELOPATHY OR RADICULOPA 01/06/2017 TIMOTEO CHAPMAN MD, Ot M51.16 INTERVERTEBRAL DISC DISORDERS W RADICULO 01/06/2017 TIMOTEO CHAPMAN MD, Ot M53.3 SACROCOCCYGEAL DISORDERS, NOT ELSEWHERE 01/06/2017 TIMOTEO CHAPMAN MD Ot Z79.02 SKILLED NURSING (CURRENT) USE OF ANTITHROMBOTI 01/06/2017 TIMOTEO CHAPMAN MD Ot Z79.899 OTHER MASTER AT ARMS (CURRENT) DRUG THERAPY 02/08/2017 TIMOTEO CHAPMAN MD Ot M43.06 SPONDYLOLYSIS, LUMBAR REGION 02/11/2017 ENOCH CARL FACC, JOSE CARLOS HENSONP CCDS Ot G47.33 OBSTRUCTIVE SLEEP APNEA (ADULT) (PEDIATR 02/11/2017 ENOCH CARL FACC, JOSE CARLOS HENSONP CCDS Ot I25.10 ATHSCL HEART DISEASE OF [place] CORONARY 02/11/2017 ENOCH CARL FACC, JOSE CARLOS [...] CCDS Ot I25.10 ATHSCL HEART DISEASE OF [place] CORONARY 02/11/2017 ENOCH CARL FACC, ALI FACP [...] CCDS Ot I25.10 ATHSCL HEART DISEASE OF [place] CORONARY 12/09/2017 ENOCH CARL FACC, ALI FACP [...] CCDS Ot I25.10 ATHSCL HEART DISEASE OF [place] CORONARY 12/09/2017 ENOCH CARL FACC, ALI FACP CCDS Ot I50.23 ACUTE ON CHRONIC SYSTOLIC (CONGESTIVE) H 12/09/2017 ENOCH CARL FACC, ALI FACP CCDS Ot R06.02 SHORTNESS OF BREATH 12/09/2017 ROBERT ALCARAZ MD Ot I51.7 CARDIOMEGALY 12/09/2017 ROBERT ALCARAZ MD Ot J90 PLEURAL EFFUSION, NOT ELSEWHERE CLASSIFI 12/09/2017 ROBERT ALCARAZ MD Ot J98.11 ATELECTASIS 12/09/2017 POOJA, SURINDER R TRUCK DOCK MATERIAL MOVER Ot R06.02 SHORTNESS OF BREATH 12/09/2017 MARIE PATTONNatasha Hightower TRUCK DOCK MATERIAL MOVER Ot I25.10 ATHSCL HEART DISEASE OF [place] CORONARY 12/09/2017 MARIE PATTONNatasha Hightower TRUCK DOCK MATERIAL MOVER Ot I51.7 CARDIOMEGALY 12/09/2017 POOJA SURINDER Hightower TRUCK DOCK MATERIAL MOVER Ot J90 PLEURAL EFFUSION, NOT ELSEWHERE CLASSIFI 12/09/2017 ARI CARL, TIMOTEO Sanchez Ot M43.06 SPONDYLOLYSIS, LUMBAR REGION 12/09/2017 ENOCH HENSONC, ALI FACP CCDS Ot G47.33 OBSTRUCTIVE SLEEP APNEA (ADULT) (PEDIATR 12/09/2017 ENOCH HENSONC, ALI FACP CCDS Ot I25.10 ATHSCL HEART DISEASE OF [place] CORONARY 12/09/2017 ENOCH CARL FACC, ALI FACP [...] CCDS Ot I25.10 ATHSCL HEART DISEASE OF [place] CORONARY 12/17/2017 ENOCH CARL FACC, ALI FACP [...] CCDS Ot I25.10 ATHSCL HEART DISEASE OF [place] CORONARY 12/22/2017 ENOCH HENSONC, ALI FACP CCDS [...] OBESITY WITH ALVEOLAR HY 12/28/2017 CECE PHOENIX TRUCK DOCK MATERIAL MOVER Ot J43.8 OTHER EMPHYSEMA 12/28/2017 ROBERT ALCARAZ MD Ot I50.9 HEART FAILURE, UNSPECIFIED 12/28/2017 ROBERT ALCARAZ MD Ot J44.9 CHRONIC OBSTRUCTIVE PULMONARY DISEASE, U 01/02/2018 CECE [place] TRUCK DOCK MATERIAL MOVER Ot E66.2 MORBID (SEVERE) OBESITY WITH ALVEOLAR HY 01/02/2018 CECE [place] TRUCK DOCK MATERIAL MOVER Ot J43.8 OTHER EMPHYSEMA 01/18/2018 ROBERT ALCARAZ MD Ot J44.9 CHRONIC OBSTRUCTIVE PULMONARY DISEASE, U 04/05/2018 ENOCH CARL FACC, ALI FACP CCDS Ot J44.9 CHRONIC OBSTRUCTIVE PULMONARY DISEASE, U 04/05/2018 ENOCH CARL FACCarolina, ALI FACP CCDS Ot R06.02 SHORTNESS OF BREATH 04/05/2018 ENOCH CALR FACC, ALI FACP CCDS Ot J44.9 CHRONIC OBSTRUCTIVE PULMONARY DISEASE, U 04/05/2018 ENOCH CARL FACC, ALI FACP CCDS Ot R06.02 SHORTNESS OF BREATH 04/07/2018 ENOCH CARL FACCarolina, ALI FACP CCDS Ot J44.9 CHRONIC OBSTRUCTIVE PULMONARY DISEASE, U 04/07/2018 ENOCH CARL FACCarolina, ALI FACP CCDS Ot R06.02 SHORTNESS OF BREATH 04/28/2018 COLT MARCOS L CUSTOM FEED MILL OPERATOR Ot E66.2 MORBID (SEVERE) OBESITY WITH ALVEOLAR HY 04/28/2018 SEDA MARCOSHER L CUSTOM FEED MILL OPERATOR Ot E78.5 HYPERLIPIDEMIA, UNSPECIFIED 04/28/2018 AZRAMA COLT L CUSTOM FEED MILL OPERATOR Ot I11.0 HYPERTENSIVE HEART DISEASE WITH HEART FA 04/28/2018 AZRAMASEDACOLT L CUSTOM FEED MILL OPERATOR Ot I25.10 ATHSCL HEART DISEASE OF [place] CORONARY 04/28/2018 COLT MARCOS L CUSTOM FEED MILL OPERATOR Ot I25.5 ISCHEMIC CARDIOMYOPATHY 04/28/2018 SEDA MARCOSHER L CUSTOM FEED MILL OPERATOR Ot I50.22 CHRONIC SYSTOLIC (CONGESTIVE) HEART FAIL 04/28/2018 SEDA MARCOSHER L CUSTOM FEED MILL OPERATOR Ot J44.9 CHRONIC OBSTRUCTIVE PULMONARY DISEASE, U 04/28/2018 SEDA MARCOSHER L CUSTOM FEED MILL OPERATOR Ot R09.02 HYPOXEMIA 04/28/2018 PRITI COLT L CUSTOM FEED MILL OPERATOR Ot Z68.41 BODY MASS INDEX (BMI) 40.0-44.9, ADULT 04/28/2018 PRITI COLT L CUSTOM FEED MILL OPERATOR Ot Z87.891 PERSONAL HISTORY OF NICOTINE DEPENDENCE 04/28/2018 SEDA MARCOSHER L CUSTOM FEED MILL OPERATOR Ot E66.2 MORBID (SEVERE) OBESITY WITH ALVEOLAR HY 04/28/2018 SEDA MARCOSHER L CUSTOM FEED MILL OPERATOR Ot E78.5 HYPERLIPIDEMIA, UNSPECIFIED 04/28/2018 AZRAMA COLT L CUSTOM FEED MILL OPERATOR Ot I11.0 HYPERTENSIVE HEART DISEASE WITH HEART FA 04/28/2018 AZRAMA COLT L CUSTOM FEED MILL OPERATOR Ot I25.10 ATHSCL HEART DISEASE OF [place] CORONARY 04/28/2018 COLT MARCOS CUSTOM FEED MILL OPERATOR Ot I25.5 ISCHEMIC CARDIOMYOPATHY 04/28/2018 COLT MARCOS CUSTOM FEED MILL OPERATOR Ot I50.22 CHRONIC SYSTOLIC (CONGESTIVE) HEART FAIL 04/28/2018 COLT MARCOS CUSTOM FEED MILL OPERATOR Ot J44.9 CHRONIC OBSTRUCTIVE PULMONARY DISEASE, U 04/28/2018 COLT MARCOS CUSTOM FEED MILL OPERATOR Ot R09.02 HYPOXEMIA 04/28/2018 COLT MARCOS CUSTOM FEED MILL OPERATOR Ot Z68.41 BODY MASS INDEX (BMI) 40.0-44.9, ADULT 04/28/2018 COLT MARCOS CUSTOM FEED MILL OPERATOR Ot Z87.891 PERSONAL HISTORY OF NICOTINE DEPENDENCE [...] MON 08/22/2018 SURINDER PATTON APRN Ot Z79.891 SKILLED NURSING (CURRENT) USE OF OPIATE ANALGE 08/26/2018 MINNIE BELL MD Ot J32.0 CHRONIC MAXILLARY SINUSITIS 08/26/2018 MINNIE BELL MD Ot J38.7 OTHER DISEASES OF [place] 08/26/2018 MINNIE BELL MD Ot J43.9 EMPHYSEMA, UNSPECIFIED 08/26/2018 MINNIE EBLL MD Ot Z95.810 PRESENCE OF AUTOMATIC (IMPLANTABLE) CARD 09/05/2018 MINNIE BELL MD Ot J38.7 OTHER DISEASES OF [place] 09/05/2018 MINNIE BELL MD Ot Z01.811 ENCOUNTER FOR PREPROCEDURAL RESPIRATORY 09/05/2018 MINNIE BELL MD Ot Z01.812 ENCOUNTER FOR PREPROCEDURAL LABORATORY E 09/05/2018 MINNIE BELL MD Ot Z11.2 ENCOUNTER FOR SCREENING FOR OTHER BACTER 09/07/2018 MINNIE BELL MD Ot J38.7 OTHER DISEASES OF [place] 09/07/2018 MINNIE BELL MD Ot Z01.811 ENCOUNTER FOR PREPROCEDURAL RESPIRATORY 09/07/2018 MINNIE BELL MD Ot Z01.812 ENCOUNTER FOR PREPROCEDURAL LABORATORY E 09/07/2018 MINNIE BELL MD Ot Z11.2 ENCOUNTER FOR SCREENING FOR OTHER BACTER 09/09/2018 LISSA CARL, ROBERT Bryant Ot J44.9 CHRONIC OBSTRUCTIVE PULMONARY DISEASE, U 09/09/2018 SURINDER PATTON APRN Ot Z51.81 ENCOUNTER FOR THERAPEUTIC DRUG LEVEL MON 09/09/2018 SURINDER PATTON APRN Ot Z79.891 SKILLED NURSING (CURRENT) USE OF OPIATE ANALGE 09/09/2018 MINNIE BELL MD Ot J32.0 CHRONIC MAXILLARY SINUSITIS 09/09/2018 MINNIE BELL MD Ot J38.7 OTHER DISEASES OF [place] 09/09/2018 MINNIE BELL MD Ot J43.9 EMPHYSEMA, UNSPECIFIED 09/09/2018 MINNIE BELL MD Ot Z95.810 PRESENCE OF AUTOMATIC (IMPLANTABLE) CARD 09/09/2018 MINNIE BELL MD Ot C32.1 MALIGNANT NEOPLASM OF SUPRAGLOTTIS 09/09/2018 MINNIE BELL MD Ot I10 ESSENTIAL (PRIMARY) HYPERTENSION 09/09/2018 MINNIE BELL MD Ot I25.10 ATHSCL HEART DISEASE OF [place] CORONARY 09/09/2018 MINNIE BELL MD Ot I65.23 OCCLUSION AND STENOSIS OF BILATERAL [place] 09/09/2018 MINNIE BELL MD Ot J44.9 CHRONIC OBSTRUCTIVE PULMONARY DISEASE, U 09/09/2018 MINNIE BELL MD Ot K21.9 GASTRO-ESOPHAGEAL REFLUX DISEASE WITHOUT 09/09/2018 MINNIE BELL MD Ot Z79.02 MASTER AT ARMS (CURRENT) USE OF ANTITHROMBOTI 09/09/2018 MINNIE BELL MD Ot Z79.899 OTHER MASTER AT ARMS (CURRENT) DRUG THERAPY 09/09/2018 MINNIE BELL MD Ot Z87.891 PERSONAL HISTORY OF NICOTINE DEPENDENCE 09/10/2018 SURINDER PATTON TRUCK DOCK MATERIAL MOVER Ot Z51.81 ENCOUNTER FOR THERAPEUTIC DRUG LEVEL MON 09/10/2018 SURINDER PATTON MOLLY Ot Z79.891 MASTER AT ARMS (CURRENT) USE OF OPIATE ANALGE 09/13/2018 MINNIE BELL MD, Ot C32.1 MALIGNANT NEOPLASM OF SUPRAGLOTTIS 09/13/2018 MINNIE BELL MD, Ot I10 ESSENTIAL (PRIMARY) HYPERTENSION 09/13/2018 MINNIE BELL MD, Ot I25.10 ATHSCL HEART DISEASE OF [place] CORONARY 09/13/2018 MINNIE BELL MD, Ot I65.23 OCCLUSION AND STENOSIS OF BILATERAL [place] 09/13/2018 MINNIE BELL MD, Ot J44.9 CHRONIC OBSTRUCTIVE PULMONARY DISEASE, U 09/13/2018 MINNIE BELL MD, Ot K21.9 GASTRO-ESOPHAGEAL REFLUX DISEASE WITHOUT 09/13/2018 MINNIE BELL MD, Ot Z79.02 MASTER AT ARMS (CURRENT) USE OF ANTITHROMBOTI 09/13/2018 MINNIE BELL MD, Ot Z79.899 OTHER SKILLED NURSING (CURRENT) DRUG THERAPY 09/13/2018 MINNIE BELL MD, Ot Z87.891 PERSONAL HISTORY OF NICOTINE DEPENDENCE 09/19/2018 ENOCH CARL FACC, JOSE CARLOS FACP CCDS Ot E66.8 OTHER OBESITY 09/19/2018 ENOCH CARL FACC, ALI FACP CCDS Ot G47.33 OBSTRUCTIVE SLEEP APNEA (ADULT) (PEDIATR 09/19/2018 ENOCH CARL FACC, ALI FACP CCDS Ot I21.9 ACUTE MYOCARDIAL INFARCTION, UNSPECIFIED 09/19/2018 ENOCH CARL FACC, ALI FACP CCDS Ot I25.10 ATHSCL HEART DISEASE OF [place] CORONARY 09/19/2018 ENOCH CARL FACC, JOSE CARLOS FACP CCDS Ot I25.2 OLD MYOCARDIAL INFARCTION 09/19/2018 ENOCH CARL FACC, ALI FACP CCDS Ot I25.5 ISCHEMIC CARDIOMYOPATHY 09/19/2018 ENOCH CALR FACC, ALI FACP CCDS Ot I50.22 CHRONIC SYSTOLIC (CONGESTIVE) HEART FAIL 09/19/2018 ENOCH CARL FACC, ALI FACP CCDS Ot J43.8 OTHER EMPHYSEMA 09/19/2018 ENOCH CARL FACC, ALI FACP CCDS Ot R06.02 SHORTNESS OF BREATH 09/19/2018 ENOCH CARL FACC, ALI FACP CCDS Ot R73.02 IMPAIRED GLUCOSE TOLERANCE (ORAL) 09/22/2018 MINNIE BELL MD Ot C76.0 MALIGNANT NEOPLASM OF HEAD, FACE AND NEC 09/22/2018 RAY CARL, MINNIE Carlisle Ot J38.7 OTHER DISEASES OF LARYN[place] 09/23/2018 ROBERT ALCARAZ MD Ot I50.9 HEART FAILURE, UNSPECIFIED 09/23/2018 ROBERT ALCARAZ MD Ot J44.9 CHRONIC OBSTRUCTIVE PULMONARY DISEASE, U 10/05/2018 LIZZ MEZA MD Ot C32.1 MALIGNANT NEOPLASM OF SUPRAGLOTTIS 10/05/2018 LIZZ MZEA MD Ot I10 ESSENTIAL (PRIMARY) HYPERTENSION 10/05/2018 LIZZ MEZA MD Ot I25.10 ATHSCL HEART DISEASE OF [place] CORONARY 10/05/2018 LIZZ MEZA MD Ot J44.9 CHRONIC OBSTRUCTIVE PULMONARY DISEASE, U 10/05/2018 LIZZ MEZA MD Ot K21.9 GASTRO-ESOPHAGEAL REFLUX DISEASE WITHOUT 10/05/2018 LIZZ MEZA MD Ot Z79.02 SKILLED NURSING (CURRENT) USE OF ANTITHROMBOTI 10/05/2018 LIZZ MEZA MD Ot Z79.899 OTHER MASTER AT ARMS (CURRENT) DRUG THERAPY 10/05/2018 LIZZ MEZA MD Ot Z87.891 PERSONAL HISTORY OF NICOTINE DEPENDENCE 10/05/2018 LIZZ MEZA MD Ot C32.1 MALIGNANT NEOPLASM OF SUPRAGLOTTIS 10/05/2018 LIZZ MEZA MD Ot I10 ESSENTIAL (PRIMARY) HYPERTENSION 10/05/2018 LIZZ MEZA MD Ot I25.10 ATHSCL HEART DISEASE OF [place] CORONARY 10/05/2018 LIZZ MEZA MD Ot J44.9 CHRONIC OBSTRUCTIVE PULMONARY DISEASE, U 10/05/2018 LIZZ MEZA MD Ot K21.9 GASTRO-ESOPHAGEAL REFLUX DISEASE WITHOUT 10/05/2018 LIZZ MEZA MD Ot Z79.02 MASTER AT ARMS (CURRENT) USE OF ANTITHROMBOTI 10/05/2018 LIZZ MEZA MD Ot Z79.899 OTHER SKILLED NURSING (CURRENT) DRUG THERAPY 10/05/2018 LIZZ MEZA MD Ot Z87.891 PERSONAL HISTORY OF NICOTINE DEPENDENCE 10/07/2018 ELVA GALAN DO Ot 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, UNSPECIFI 10/07/2018 ELVA GALAN DO Ot E86.0 DEHYDRATION 10/07/2018 ELVA GALAN DO K Ot I10 ESSENTIAL (PRIMARY) HYPERTENSION 10/07/2018 ADAMA CHEATHAM ELVA Grant Ot I25.10 ATHSCL HEART DISEASE OF [place] CORONARY 10/07/2018 ELVA GALAN DO Grant Ot I25.2 OLD MYOCARDIAL INFARCTION 10/07/2018 ADAMA CHEATHAM ELVA Grant Ot J44.9 CHRONIC OBSTRUCTIVE PULMONARY DISEASE, U 10/07/2018 ADAMA ELVA CHEATHAM Grant Ot K06.8 OTH DISRD OF GINGIVA AND EDENTULOUS ALVE 10/07/2018 ADAMA CHEATHAM ELVA K Ot 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 10/07/2018 ADAMA CHEATHAM ELVA K Ot Z79.02 MASTER AT ARMS (CURRENT) USE OF ANTITHROMBOTI 10/07/2018 ADAMA CHEATHAMELVA Ot Z79.82 MASTER AT ARMS (CURRENT) USE OF ASPIRIN 10/07/2018 ADAMA CHEATHAMELVA Ot Z87.891 PERSONAL HISTORY OF NICOTINE DEPENDENCE 10/07/2018 ADAMA ELVA Ot Z88.8 ALLERGY STATUS TO OT DRUG/MEDS/BIOL SUB 10/07/2018 ADAMA CHEATHAM ELVA Grant Ot Z95.5 PRESENCE OF CORONARY ANGIOPLASTY IMPLANT 10/07/2018 ADAMA CHEATHAM ELVA K Ot 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, UNSPECIFI 10/07/2018 ADAMA CHEATHAM ELVA Grant Ot E86.0 DEHYDRATION 10/07/2018 ADAMA CHEATHAM ELVA K Ot I10 ESSENTIAL (PRIMARY) HYPERTENSION 10/07/2018 ADAMA CHEATHAM ELVA Grant Ot I25.10 ATHSCL HEART DISEASE OF [place] CORONARY 10/07/2018 ADAMA CHEATHAM ELVA K Ot I25.2 OLD MYOCARDIAL INFARCTION 10/07/2018 ADAMA CHEATHAM ELVA K Ot J44.9 CHRONIC OBSTRUCTIVE PULMONARY DISEASE, U 10/07/2018 ELVA GALAN DO Grant Ot K06.8 OTH DISRD OF GINGIVA AND EDENTULOUS ALVE 10/07/2018 ADAMA CHEATHAMELVA Ot 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 10/07/2018 ADAMA CHEATHAMELVA Ot Z79.02 SKILLED NURSING (CURRENT) USE OF ANTITHROMBOTI 10/07/2018 ADAMA ELVA Ot Z79.82 SKILLED NURSING (CURRENT) USE OF ASPIRIN 10/07/2018 ELVA GALAN DO Ot Z87.891 PERSONAL HISTORY OF NICOTINE DEPENDENCE 10/07/2018 ELVA GALAN DO Ot Z88.8 ALLERGY STATUS TO OTH DRUG/MEDS/BIOL SUB 10/07/2018 ELVA GALAN DO Ot Z95.5 PRESENCE OF CORONARY ANGIOPLASTY IMPLANT 10/28/2018 ENOCH CARL FACC, ALI FACP CCDS Ot E66.01 MORBID (SEVERE) OBESITY DUE TO EXCESS CA 10/28/2018 ENOCH HENSONC, ALI FACP CCDS Ot E78.4 OTHER HYPERLIPIDEMIA 10/28/2018 ENOCH HENSONC, ALI FACP CCDS Ot G47.33 OBSTRUCTIVE SLEEP APNEA (ADULT) (PEDIATR 10/28/2018 ENOCH HENSONC, ALI FACP CCDS Ot I10 ESSENTIAL (PRIMARY) HYPERTENSION 10/28/2018 ENOCH CARL FACC, ALI FACP CCDS Ot I25.10 ATHSCL HEART DISEASE OF [place] CORONARY 10/28/2018 ENOCH HENSONC, ALI FACP CCDS Ot I50.23 ACUTE ON CHRONIC SYSTOLIC (CONGESTIVE) H 10/28/2018 ENOCH HENSONC, ALI FACP CCDS Ot R06.02 SHORTNESS OF BREATH 10/28/2018 ENOCH HENSONC, ALI FACP CCDS Ot E66.01 MORBID (SEVERE) OBESITY DUE TO EXCESS CA 10/28/2018 ENOCH HENSONC, ALI FACP CCDS Ot E78.4 OTHER HYPERLIPIDEMIA 10/28/2018 ENOCH HENSONC, ALI FACP CCDS Ot G47.33 OBSTRUCTIVE SLEEP APNEA (ADULT) (PEDIATR 10/28/2018 ENOCH HENSONC, ALI FACP CCDS Ot I11.0 HYPERTENSIVE HEART DISEASE WITH HEART FA 10/28/2018 ENOCH CARL FACC, ALI FACP CCDS Ot I25.10 ATHSCL HEART DISEASE OF [place] CORONARY 10/28/2018 ENOCH CARL FACC, ALI FACP CCDS Ot I50.23 ACUTE ON CHRONIC SYSTOLIC (CONGESTIVE) H 10/28/2018 ENOCH CARL FACC, ALI FACP CCDS Ot R06.02 SHORTNESS OF BREATH 10/28/2018 LISSA CARL, ROBERT Bryant Ot I51.7 CARDIOMEGALY 10/28/2018 ROBERT ALCARAZ MD Ot J90 PLEURAL EFFUSION, NOT ELSEWHERE CLASSIFI 10/28/2018 LISSA CARL, ROBERT Bryant Ot J98.11 ATELECTASIS 10/28/2018 SURINDER PATTON TRUCK DOCK MATERIAL MOVER Ot R06.02 SHORTNESS OF BREATH 10/28/2018 SURINDER PATTON TRUCK DOCK MATERIAL MOVER Ot I25.10 ATHSCL HEART DISEASE OF [place] CORONARY 10/28/2018 SURINDER PATTON TRUCK DOCK MATERIAL MOVER Ot I51.7 CARDIOMEGALY 10/28/2018 SURINDER PATTON TRUCK DOCK MATERIAL MOVER Ot J90 PLEURAL EFFUSION, NOT ELSEWHERE CLASSIFI 10/28/2018 ARI CARL, TIMOTEO Sanchez Ot M43.06 SPONDYLOLYSIS, LUMBAR REGION 10/28/2018 ENOCH CARL FACC, ALI FACP CCDS Ot G47.33 OBSTRUCTIVE SLEEP APNEA (ADULT) (PEDIATR 10/28/2018 ENOCH CARL FACC, ALI FACP CCDS Ot I25.10 ATHSCL HEART DISEASE OF [place] CORONARY 10/28/2018 ENOCH CARL FACC, ALI FACP CCDS Ot I25.5 ISCHEMIC CARDIOMYOPATHY 10/28/2018 ENOCH CARL FACC, ALI FACP CCDS Ot I50.23 ACUTE ON CHRONIC SYSTOLIC (CONGESTIVE) H 10/28/2018 ENOCH CARL FACC, ALI FACP CCDS Ot I65.23 OCCLUSION AND STENOSIS OF BILATERAL RILEY 10/28/2018 ENOCH CARL FACC, ALI FACP CCDS Ot I70.0 ATHEROSCLEROSIS OF AORTA 10/28/2018 ENOCH CARL FACC, ALI FACP CCDS Ot 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 10/28/2018 ENOHC CARL FACC, ALI FACP CCDS Ot J43.8 OTHER EMPHYSEMA 10/28/2018 ENOCH CARL FACC, ALI FACP CCDS Ot M54.5 LOW BACK PAIN 10/28/2018 ROBERT ALCARAZ MD Ot I50.9 HEART FAILURE, UNSPECIFIED 10/28/2018 ROBERT ALCARAZ MD Ot J44.9 CHRONIC OBSTRUCTIVE PULMONARY DISEASE, U 10/28/2018 ENOCH CARL FACC, ALI FACP CCDS Ot E66.8 OTHER OBESITY 10/28/2018 ENOCH CARL FACC, ALI FACP CCDS Ot G47.33 OBSTRUCTIVE SLEEP APNEA (ADULT) (PEDIATR 10/28/2018 ENOCH HENSONC, ALI FACP CCDS Ot I25.10 ATHSCL HEART DISEASE OF [place] CORONARY 10/28/2018 ENOCH CARL FACC, ALI FACP CCDS Ot I25.2 OLD MYOCARDIAL INFARCTION 10/28/2018 ENOCH CARL FACC, ALI FACP CCDS Ot I25.5 ISCHEMIC CARDIOMYOPATHY 10/28/2018 ENOCH CARL FACC, ALI FACP CCDS Ot I50.22 CHRONIC SYSTOLIC (CONGESTIVE) HEART FAIL 10/28/2018 ENOCH CARL FACC, ALI FACP CCDS Ot J43.8 OTHER EMPHYSEMA 10/28/2018 ENOCH CARL FACC, ALI FACP CCDS Ot R06.02 SHORTNESS OF BREATH 10/28/2018 ENOCH CARL FACC, ALI FACP CCDS Ot R73.02 IMPAIRED GLUCOSE TOLERANCE (ORAL) 10/28/2018 ENOCH CARL FACC, ALI FACP CCDS Ot E66.8 OTHER OBESITY 10/28/2018 ENOCH CARL FACC, ALI FACP CCDS Ot G47.33 OBSTRUCTIVE SLEEP APNEA (ADULT) (PEDIATR 10/28/2018 ENOCH CARL FACC, ALI FACP CCDS Ot I21.9 ACUTE MYOCARDIAL INFARCTION, UNSPECIFIED 10/28/2018 ENOCH CARL FACC, ALI FACP CCDS Ot I25.10 ATHSCL HEART DISEASE OF [place] CORONARY 10/28/2018 ENOCH CARL FACC, ALI FACP CCDS Ot I25.2 OLD MYOCARDIAL INFARCTION 10/28/2018 ENOCH CARL FACC, ALI FACP CCDS Ot I25.5 ISCHEMIC CARDIOMYOPATHY 10/28/2018 ENOCH CARL FACC, ALI FACP CCDS Ot I50.22 CHRONIC SYSTOLIC (CONGESTIVE) HEART FAIL 10/28/2018 ENOCH CARL FACC, ALI FACP CCDS Ot J43.8 OTHER EMPHYSEMA 10/28/2018 ENOCH HENSONC, ALI FACP CCDS Ot R06.02 SHORTNESS OF BREATH 10/28/2018 ENOCH HENSONC, ALI FACP CCDS Ot R73.02 IMPAIRED GLUCOSE TOLERANCE (ORAL) 10/28/2018 CECE PHOENIX APRN Ot E66.2 MORBID (SEVERE) OBESITY WITH ALVEOLAR HY 10/28/2018 CECE PHOENIX APRN Ot J43.8 OTHER EMPHYSEMA 10/28/2018 ROBERT ALCARAZ MD Ot J44.9 CHRONIC OBSTRUCTIVE PULMONARY DISEASE, U 12/13/2018 DERRICK CARL, LIZZ Barnes Ot C32.1 MALIGNANT NEOPLASM OF SUPRAGLOTTIS 12/13/2018 LIZZ MEZA MD Ot I10 ESSENTIAL (PRIMARY) HYPERTENSION 12/13/2018 LIZZ MEZA MD Ot I25.10 ATHSCL HEART DISEASE OF [place] CORONARY 12/13/2018 LIZZ MEZA MD Ot J44.9 CHRONIC OBSTRUCTIVE PULMONARY DISEASE, U 12/13/2018 LIZZ MEZA MD Ot K21.9 GASTRO-ESOPHAGEAL REFLUX DISEASE WITHOUT 12/13/2018 LIZZ MEZA MD E Ot Z79.02 MASTER AT ARMS (CURRENT) USE OF ANTITHROMBOTI 12/13/2018 LIZZ MEZA MD Ot Z79.899 OTHER SKILLED NURSING (CURRENT) DRUG THERAPY 12/13/2018 LIZZ MEZA MD E Ot Z87.891 PERSONAL HISTORY OF NICOTINE DEPENDENCE 12/15/2018 LIZZ MEZA MD Ot C32.1 MALIGNANT NEOPLASM OF SUPRAGLOTTIS 12/15/2018 LIZZ MEZA MD Ot I10 ESSENTIAL (PRIMARY) HYPERTENSION 12/15/2018 LIZZ MEZA MD Ot I25.10 ATHSCL HEART DISEASE OF [place] CORONARY 12/15/2018 LIZZ MEZA MD Ot J44.9 CHRONIC OBSTRUCTIVE PULMONARY DISEASE, U 12/15/2018 LIZZ MEZA MD Ot K21.9 GASTRO-ESOPHAGEAL REFLUX DISEASE WITHOUT 12/15/2018 LIZZ MEZA MD Ot Z79.02 MASTER AT ARMS (CURRENT) USE OF ANTITHROMBOTI 12/15/2018 LIZZ MEZA MD Ot Z79.899 OTHER SKILLED NURSING (CURRENT) DRUG THERAPY 12/15/2018 LIZZ MEZA MD Ot Z87.891 PERSONAL HISTORY OF NICOTINE DEPENDENCE 12/15/2018 LIZZ MEZA MD Ot C32.1 MALIGNANT NEOPLASM OF SUPRAGLOTTIS 12/15/2018 LIZZ MEZA MD Ot I10 ESSENTIAL (PRIMARY) HYPERTENSION 12/15/2018 LIZZ MEZA MD Ot I25.10 ATHSCL HEART DISEASE OF [place] CORONARY 12/15/2018 LIZZ MEZA MD Ot J44.9 CHRONIC OBSTRUCTIVE PULMONARY DISEASE, U 12/15/2018 LIZZ MEZA MD Ot K21.9 GASTRO-ESOPHAGEAL REFLUX DISEASE WITHOUT 12/15/2018 LIZZ MEZA MD Ot Z51.0 ENCOUNTER FOR ANTINEOPLASTIC RADIATION T 12/15/2018 LIZZ MEZA MD E Ot Z79.02 MASTER AT ARMS (CURRENT) USE OF ANTITHROMBOTI 12/15/2018 LIZZ MEZA MD E Ot Z79.899 OTHER MASTER AT ARMS (CURRENT) DRUG THERAPY 12/15/2018 LIZZ MEZA MD, Ot Z87.891 PERSONAL HISTORY OF NICOTINE DEPENDENCE 12/19/2018 LIZZ MEZA MD, Ot C32.1 MALIGNANT NEOPLASM OF SUPRAGLOTTIS 12/19/2018 LIZZ MEZA MD Ot I10 ESSENTIAL (PRIMARY) HYPERTENSION 12/19/2018 LIZZ MEZA MD, Ot I25.10 ATHSCL HEART DISEASE OF [place] CORONARY 12/19/2018 LIZZ MEZA MD, Ot J44.9 CHRONIC OBSTRUCTIVE PULMONARY DISEASE, U 12/19/2018 LIZZ MEZA MD, Ot K21.9 GASTRO-ESOPHAGEAL REFLUX DISEASE WITHOUT 12/19/2018 LIZZ MEZA MD, Ot Z51.0 ENCOUNTER FOR ANTINEOPLASTIC RADIATION T 12/19/2018 LIZZ MEZA MD, Ot Z79.02 MASTER AT ARMS (CURRENT) USE OF ANTITHROMBOTI 12/19/2018 LIZZ MEZA MD, Ot Z79.899 OTHER MASTER AT ARMS (CURRENT) DRUG THERAPY 12/19/2018 LIZZ MEZA MD, Ot Z87.891 PERSONAL HISTORY OF NICOTINE DEPENDENCE 01/05/2019 SURINDER PATTON APRN Ot Z51.81 ENCOUNTER FOR THERAPEUTIC DRUG LEVEL MON 01/05/2019 SURINDER PATTON APRN Ot Z79.891 MASTER AT ARMS (CURRENT) USE OF OPIATE ANALGE Procedures There is no data. Results Test Result Range [id number] - 12/24/16 09:08 Serum or plasma urea [...] in urine Negative NRG Serum or plasma 0-wjkbleifxu-3,9-iuqajpvd-8,3-diphenylpyrrolidine (eddp) detection Negative NRG Urine opiates detection Negative NRG Urine phencyclidine (PCP) detection Negative NRG Propoxyphene [mass/volume] in urine Negative NRG Urine salicylates measurement (mass/volume) Negative NRG Urine tetrahydrocannabinol detection by screening method Negative NRG [id number] - 08/25/18 11:02 Serum or plasma urea [...] plasma calcium measurement (mass/volume) 9.4 mg/dL 8.5-10.1 Complete blood count (CBC) with automated white blood cell (WBC) differential - 10/05/18 18:32 Blood leukocytes automated count (number/volume) 13.4 10*3/uL 4.3-11.0 Blood erythrocytes automated count (number/volume) 4.45 10*6/uL 4.35-5.85 Venous blood hemoglobin measurement (mass/volume) 14.6 g/dL 13.3-17.7 Blood hematocrit (volume fraction) 43 % 40-54 Automated erythrocyte mean corpuscular volume 97 [foz_us] 80-99 Automated erythrocyte mean corpuscular hemoglobin (mass per erythrocyte) 33 pg 25-34 Automated erythrocyte mean corpuscular hemoglobin concentration measurement ( mass/volume) 34 g/dL 32-36 Automated erythrocyte distribution width ratio 14.3 % 10.0-14.5 Automated blood platelet count (count/volume) 202 10*3/uL 130-400 Automated blood platelet mean volume measurement 10.2 [foz_us] 7.4-10.4 Automated blood neutrophils/100 leukocytes 93 % 42-75 Automated blood lymphocytes/100 leukocytes 5 % 12-44 Blood monocytes/100 leukocytes 2 % 0-12 Automated blood eosinophils/100 leukocytes 0 % 0-10 Automated blood basophils/100 leukocytes 0 % 0-10 Blood neutrophils automated count (number/volume) 12.5 10*3 1.8-7.8 Blood lymphocytes automated count (number/volume) 0.6 10*3 1.0-4.0 Blood monocytes automated count (number/volume) 0.3 10*3 0.0-1.0 Automated eosinophil count 0.0 10*3/uL 0.0-0.3 Automated blood basophil count (count/volume) 0.0 10*3/uL 0.0-0.1 Blood manual differential performed detection - 10/05/18 18:32 Blood monocytes/100 leukocytes 1 % NRG Manual blood segmented neutrophils/100 leukocytes 89 % NRG Blood band neutrophils/100 leukocytes 7 % NRG Manual blood lymphocytes/100 leukocytes 3 % NRG Manual eosinophils/100 leukocytes in nose 0 % NRG Manual blood basophils/100 leukocytes 0 % NRG Blood erythrocyte morphology finding identification NORMAL NR Whole blood basic metabolic panel - 10/05/18 18:32 Serum or plasma sodium measurement (moles/volume) 136 mmol/L 135-145 Serum or plasma potassium measurement (moles/volume) 5.6 mmol/L 3.6-5.0 Serum or plasma chloride measurement (moles/volume) 102 mmol/L 98-107 Carbon dioxide 23 mmol/L 21-32 Serum or plasma anion gap determination (moles/volume) 11 mmol/L 5-14 Serum or plasma urea nitrogen measurement (mass/volume) 22 mg/dL 7-18 Serum or plasma creatinine measurement (mass/volume) 0.85 mg/dL 0.60-1.30 Serum or plasma urea nitrogen/creatinine mass ratio 26 NRG Serum or plasma creatinine measurement with calculation of estimated glomerular filtration rate > NRG Serum or plasma glucose measurement (mass/volume) 123 mg/dL 70-105 Serum or plasma calcium measurement (mass/volume) 9.4 mg/dL 8.5-10.1 PT panel in platelet poor plasma by coagulation assay - 10/05/18 18:32 Prothrombin time (PT) in platelet poor plasma by coagulation assay 14.2 s 12.2-14.7 INR in platelet poor plasma or blood by coagulation assay 1.1 0.8-1.4 Activated partial thromboplastin time (aPTT) in platelet poor plasma bycoagulation assay - 10/05/18 18:32 Activated partial thromboplastin time (aPTT) in platelet poor plasma bycoagulation assay 33 s 24-35 Encounters ACCT No. Visit Date/Time Discharge Status Pt. Type Provider Facility Loc./Unit Complaint [id number] 12/16/2018 14:11:00 12/16/2018 23:59:59 CLS Outpatient LIZZ MEZA MD [facility] ONC [id number] 12/13/2018 14:03:00 12/13/2018 00:01:00 DIS Outpatient LIZZ MEZA MD [facility] ONC [id number] 10/05/2018 18:24:00 10/05/2018 22:40:00 DIS Outpatient ELVA GALAN DO [facility] ER MOUTH BLEEDING;COPD [id number] 09/20/2018 11:03:00 09/20/2018 23:59:59 CLS Outpatient MINNIE BELL MD [facility] RAD EPIGLOTTIC LESION [id number] 09/09/2018 07:35:00 09/09/2018 11:25:00 DIS Outpatient MINNIE BELL MD [facility] SDC EPIGLOTIC LESION [id number] 09/05/2018 13:19:00 09/05/2018 14:25:00 DIS Outpatient MINNIE BELL MD [facility] PREOP EPIGLOTIC LESION [id number] 08/25/2018 10:57:00 08/25/2018 23:59:59 CLS Outpatient MINNIE BELL MD [facility] RAD LARYNGEAL ULCER [id number] 08/17/2018 14:33:00 08/17/2018 23:59:59 CLS Outpatient SURINDER PATTON APRN [facility] LAB Z79.891 [id number] 06/06/2018 13:00:00 06/06/2018 23:59:59 CLS Preadsantiago KENDALL MD FACC, JOSE CARLOS GARCIA CCDS [facility] PULM COPD [id number] 03/07/2018 14:25:00 06/05/2018 00:01:00 DIS Outpatient JOSE CARLOS KENDALL MD, FACC, FACP CCDS [facility] PULM COPD [id number] 04/26/2018 10:10:00 04/26/2018 23:59:59 CLS Outpatient COLT MARCOS [facility] CATH CHEST DISCOMFORT [id number] 01/17/2018 14:45:00 01/17/2018 23:59:59 CLS Outpatient ROBERT ALCARAZ MD [facility] RAD COPD,COUGH,HYPOXIA [id number] 12/31/2017 11:45:00 12/31/2017 23:59:59 CLS Preadmit CECE [place] [employer] [facility] RAD J43.8 COPD [id number] 12/27/2017 16:10:00 12/27/2017 23:59:59 CLS Outpatient CECE [place] [employer] [facility] LAB J43.8 [id number] 12/27/2017 15:45:00 12/27/2017 23:59:59 CLS Preadmit VIJYAA PHOEN[place]INE E [employer] [facility] RT J43.8 COPD [id number] 12/21/2017 12:07:00 12/21/2017 23:59:59 CLS Outpatient JOSE CARLOS KENDALL MD, FACC, FACP CCDS [facility] CARD SOB,CAD [id number] 12/16/2017 13:32:00 12/16/2017 23:59:59 CLS Outpatient JOSE CARLOS KENDALL MD, FACC, FACP CCDS [facility] CARD SOB,CAD [id number] 12/07/2017 14:34:00 12/07/2017 23:59:59 CLS Outpatient ROBERT ALCARAZ MD [facility] RAD COPD,CHF [id number] 03/16/2017 09:49:00 03/16/2017 16:30:00 DIS Outpatient WHIT MARCIAL DO [facility] RAD BACK PAIN [id number] 02/10/2017 09:59:00 02/10/2017 23:59:59 CLS Outpatient JOSE CARLOS KENDALL MD, FACC, FACP CCDS [facility] RAD CAD,HTN,HLP, ISCHEMIC CARDIOMYOPATHY [id number] 02/05/2017 13:45:00 02/05/2017 23:59:59 CLS Outpatient TIMOTEO CHAPMAN MD [facility] RAD LOW BACK PAIN [id number] 01/01/2017 08:32:00 01/01/2017 09:41:00 DIS Outpatient TIMOTEO CHAPMAN MD [facility] CARD DISC DISORDER, SACOROCOCCYGEAL DISORDER [id number] 12/24/2016 08:50:00 12/24/2016 23:59:59 CLS Outpatient SURINDER PATTON APRN [facility] RAD ABNORMAL CHEST XRAY [id number] 12/22/2016 08:59:00 12/22/2016 23:59:59 CLS Outpatient SURINDER PATTON [employer] [facility] RAD SOB [id number] 12/21/2016 08:20:00 12/21/2016 16:30:00 DIS Outpatient CARMELO DAVIS DO [facility] SLEEP COPD,CAD,FATIGUE [id number] 10/29/2016 07:47:00 10/29/2016 23:59:59 CLS Outpatient JOSE CARLOS KENDALL MD, FACC, FACP CCDS [facility] CARD CAD,VIJI [id number] 10/27/2016 15:00:00 10/27/2016 23:59:59 CLS Outpatient JOSE CARLOS KENDALL MD, FACC FACOrestes CCDS [facility] CARD SOB,CAD [id number] 10/21/2016 10:59:00 10/21/2016 23:59:59 CLS Outpatient ROBERT ALCARAZ MD [facility] RAD DYSPNEA [id number] 08/20/2015 07:20:00 08/21/2015 09:50:00 DIS Outpatient JOSE CARLOS KENDALL MD, FACC FACOrestes CCDS [facility] CATH [id number] 08/12/2015 12:32:00 08/12/2015 13:57:00 DIS Outpatient TIMOTEO CHAPMAN MD [facility] CARD [id number] 08/07/2015 13:02:00 08/07/2015 23:59:59 CLS Outpatient ROBERT ALCARAZ MD [facility] RT [id number] 05/09/2014 15:46:00 05/09/2014 23:59:59 CLS Outpatient ENOCH CARL FACC, JOSE CARLOS GARCIA CCDS [facility] LAB [id number] 01/06/2019 16:43:00 ACT Emergency HUMA CARL, DA Petty [facility] ER COUGH,SOB,Hx COPD [id number] 10/16/2016 06:49:00 Document Registration [id number] 01/23/2015 10:03:00 Document Registration [id number] 10/14/2012 02:00:00 Document Registration [id number] 05/06/2012 15:54:00 Document Registration [id number] 05/05/2012 17:07:00 Document Registration [id number] 02/09/2012 05:40:00 Document Registration [id number] 02/08/2012 10:04:00 Document Registration
[2019-01-06] MEDS ORDERED: RT-ALBUTEROL/IPRATROPIUM 3 ML (DUONEB) VIAL INH ONE (17:15)
--- NOTE | 2019-01-06 17:15 | NUR ---
LAB CONTACTED FOR BLOOD DRAW.
[2019-01-06 17:42] LABS: BASOPHILS % (AUTO) 0 % (0-10); EOSINOPHILS # (AUTO) 0.2 10^3/uL (0.0-0.3); EOSINOPHILS % (AUTO) 3 % (0-10); HEMATOCRIT 34 % (40-54); HEMOGLOBIN 10.6 G/DL (13.3-17.7); LYMPHOCYTES # (AUTO) 0.5 X 10^3 (1.0-4.0); LYMPHOCYTES % (AUTO) 8 % (12-44); MEAN CORPUSCULAR HEMOGLOBIN 30 PG (25-34); MEAN CORPUSCULAR HGB CONC 31 G/DL (32-36); MEAN CORPUSCULAR VOLUME 97 FL (80-99); MEAN PLATELET VOLUME 10.5 FL (7.4-10.4); MONOCYTES # (AUTO) 0.6 X 10^3 (0.0-1.0); MONOCYTES % (AUTO) 9 % (0-12); NEUTROPHILS # (AUTO) 5.1 X 10^3 (1.8-7.8); NEUTROPHILS % (AUTO) 80 % (42-75); PLATELET COUNT 213 10^3/uL (130-400); RED CELL DISTRIBUTION WIDTH 14.6 % (10.0-14.5); WHITE BLOOD COUNT 6.4 10^3/uL (4.3-11.0)
[2019-01-06 18:04] LABS: ALANINE AMINOTRANSFERASE 19 U/L (0-55); ALBUMIN 3.9 GM/DL (3.2-4.5); ALKALINE PHOSPHATASE 103 U/L (40-136); BILIRUBIN,TOTAL 0.3 MG/DL (0.1-1.0); BUN/CREATININE RATIO 35; CALCIUM 8.7 MG/DL (8.5-10.1); CARBON DIOXIDE 23 MMOL/L (21-32); CHLORIDE 103 MMOL/L (98-107); CREATININE SERUM 0.95 MG/DL (0.60-1.30); GFR ESTIMATED > 60; GLUCOSE 109 MG/DL (70-105); MAGNESIUM 1.9 MG/DL (1.8-2.4); POTASSIUM 3.9 MMOL/L (3.6-5.0); SODIUM 136 MMOL/L (135-145); TOTAL PROTEIN 7.4 GM/DL (6.4-8.2)
--- NOTE | 2019-01-06 18:10 | NUR ---
RT HERE FOR BLOOD DRAW.
[2019-01-06] MEDS ORDERED: NS IV 1000 ML 1,000 ML IV SCH (18:15)
[2019-01-06] MEDS ORDERED: RT-ALBUTEROL SULF 2.5 MG/3 ML PRE-MIX VIAL ONE ×2 (18:24→18:38)
[2019-01-06] MEDS ORDERED: NS 100 ML (IVPB) BAG IV ONE (18:30)
[2019-01-06] MEDS ORDERED: CATHETER FLUSH 10 ML SYR IV PRN (18:30)
[2019-01-06] MEDS ORDERED: IOHEXOL 350 MG/ML 150 ML (OMNIPAQUE 350) VIAL IV ONE (18:30)
[2019-01-06] MEDS ORDERED: RECEIVED CONTRAST (Hold Metformin) IV SCH (18:30)
--- NOTE | 2019-01-06 18:42 | Diagnostic Imaging Report ---
EXAMINATION: Chest, PA and lateral views. INDICATION: Cough and shortness of breath on exertion. COMPARISON: Multiple priors, most recent performed on 09/05/2018. FINDINGS: ICD device and single lead are unchanged in position. Unchanged moderate cardiomegaly. There is prominence of the central pulmonary vasculature, similar in appearance to prior exams, without overt edema. There is moderate right apical pleural-parenchymal scarring. There is blunting of the costophrenic angles and mild bibasilar atelectasis. The lungs are otherwise clear. No pneumothorax. The cardiomediastinal silhouette is unchanged. No acute osseous abnormality. IMPRESSION: Blunting of the costophrenic angles reflecting chronic scarring/pleural reaction versus small bilateral pleural effusions. There is mild bibasilar atelectasis also noted. Unchanged cardiomegaly. Dictated by: Dictated on workstation # [id number]
--- NOTE | 2019-01-06 18:53 | NUR ---
REPORT GIVEN TO
[2019-01-06] MEDS ORDERED: methylPREDNISolone 125 MG (Solu-MEDROL) VIAL IVP ONE (19:00)
[2019-01-06 19:24] VITALS: BP 111/59
--- NOTE | 2019-01-06 19:39 | Diagnostic Imaging Report ---
PROCEDURE: CT angiography of the chest with contrast. TECHNIQUE: Multiple contiguous axial images were obtained through the chest after uneventful bolus administration of intravenous contrast. 2D reconstructed CTA MIP acquisitions were also performed. DATE: January 06, 2019. COMPARISON: Chest radiographs, January 06, 2019. CT chest December 24, 2016. INDICATION: 63-year-old male, shortness of breath. Cough. History of throat malignancy. FINDINGS: There are upper lobe predominant changes of emphysema. There is pleural-parenchymal scarring in the right lung apex. There is nonspecific dependent airspace consolidation in the right lower lobe which may relate to atelectasis or infiltrate. This is not particularly enhancing although this appearance could relate to the timing of contrast. There is very mild atelectasis in the left lower lobe. There is a trace right pleural effusion and no sizable left pleural effusion. There is nondiagnostic assessment for subsegmental pulmonary emboli given the timing of contrast bolus. There is no identified central or segmental pulmonary embolus. The main pulmonary artery measures disease. There is no pericardial effusion. There are mildly prominent right hilar lymph nodes with the largest on axial image 70, measuring 2.1 cm in short axis. This is essentially unchanged since December 24, 2016. There is an AP window lymph node, measuring 14 mm in short axis on axial image 54, which is unchanged. Additional mildly prominent AP window lymph nodes are also essentially unchanged. There is a subcarinal lymph node, measuring 2.0 cm in short axis which is increased in size since December 24, 2016, previously measuring 1.5 cm in short axis. There are abnormally prominent right paratracheal lymph nodes with one example on axial image 26, measuring 16 mm in short axis. This is unchanged since November 2016. Imaged portions of the upper abdomen are grossly unremarkable in appearance. There are degenerative changes of the spine. There is no identified aggressive bone lesion or acute bony abnormality. IMPRESSION: CT chest: 1. No identified central or segmental pulmonary embolus. Nondiagnostic evaluation for subsegmental pulmonary emboli given the timing of the contrast bolus. 2. Trace right pleural effusion with dependent airspace consolidation in the right lower lobe most likely relating to atelectasis although difficult to definitively characterize. 3. Abnormally enlarged mediastinal and hilar lymph nodes with interval increase in size of a subcarinal lymph node; however, the additional adenopathy is otherwise essentially unchanged since November 2016. 4. Upper lobe predominant changes of emphysema with mild pleural-parenchymal scarring in the right lung apex. Dictated by: Dictated on workstation # [id number]
[2019-01-06] MEDS ORDERED: ALBU2.5V4 INH (20:24)
[2019-01-06] MEDS ORDERED: PRD20T PO (20:24)
[2019-01-06] MEDS ORDERED: AZIT250T PO (20:24)
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
[2019-01-06] MEDS ORDERED: RX-ALBUTEROL NEB 2.5 MG/3 ML PACK #5 IH STA (20:26)
[2019-01-06 20:40] VITALS: BP 110/58
== END 2019-01-06 20:49 | disposition home or self-care (01) ==
LOC: EDUNIT# 16:41 → ER 16:43
DX: J44.9 Chronic obstructive pulmonary disease, unspecified (principal); I25.10 Atherosclerotic heart disease of native coronary artery without angina pectoris; I25.2 Old myocardial infarction; I11.0 Hypertensive heart disease with heart failure; I50.9 Heart failure, unspecified; Z85.818 Personal history of malignant neoplasm of other sites of lip, oral cavity, and pharynx; Z87.448 Personal history of other diseases of urinary system; Z88.8 Allergy status to other drugs, medicaments and biological substances; Z79.82 Long term (current) use of aspirin; Z79.02 Long term (current) use of antithrombotics/antiplatelets; Z99.81 Dependence on supplemental oxygen; Z87.891 Personal history of nicotine dependence; Z95.5 Presence of coronary angioplasty implant and graft; Z98.890 Other specified postprocedural states; Z95.810 Presence of automatic (implantable) cardiac defibrillator
CPT/HCPCS: 36415; 71046; 71275; 80053; 83735; 83880; 85025; 85379; 87040; 93005; 93041; 94640

== ENCOUNTER 2019-06-06 10:23 | Inpatient (IN) | payer OTHER ==
[~2019-06-06] VITALS: Ht 182.9 cm; Wt 134.2 kg
[2019-06-06] VITALS (9 sets, daily range): BP systolic 96–132; BP diastolic 53–73
[~2019-06-06 10:23] MED LIST changes: +ALBU2.5V4 INH; +AZIT250T PO
--- OUTSIDE RECORDS SUMMARY | 2019-06-06 10:31 | XMS REPORT | Continuity of Care Document ---
Author Organization Unknown Address Unknown Allergies Active Description Code Type Severity Reaction Onset Reported/Identified Relationship to Patient Clinical Status Yes quinine [id number] Drug Allergy Unknown N/A 02/09/2012 Medications There is no data. Problems Date Dx Coded Attending Type Code Diagnosis Diagnosed By 02/09/2012 Ot 272.4 HYPERLIPIDEMIA NEC/NOS 02/09/2012 Ot 401.9 HYPERTENSION NOS 02/09/2012 Ot 412 OLD MYOCARDIAL INFARCT 02/09/2012 Ot 413.9 ANGINA PECTORIS NEC/NOS 02/09/2012 Ot 414.01 CORONARY ATHEROSCLEROSIS OF [place] CORON 02/09/2012 Ot 425.4 PRIM CARDIOMYOPATHY NEC 02/09/2012 Ot 786.09 RESPIRATORY ABNORM NEC 02/09/2012 Ot V45.82 PERCUTANEOUS TRANSLUM CORON ANGIOPLASTY 02/09/2012 Ot V58.63 LONG-TERM(CURRENT)USE OF ANTIPLATELET/AN 02/09/2012 Ot V58.66 LONG-TERM (CURRENT) USE OF ASPIRIN 02/09/2012 Ot V58.69 OTH MED,LT,CURRENT USE 05/05/2012 Ot 724.2 LUMBAGO 10/14/2012 Ot 271.3 DISACCHARIDASE DEF/MALAB 10/14/2012 Ot 272.4 HYPERLIPIDEMIA NEC/NOS 10/14/2012 Ot 276.7 HYPERPOTASSEMIA 10/14/2012 Ot 278.00 OBESITY, NOS 10/14/2012 Ot 305.1 TOBACCO USE DISORDER 10/14/2012 Ot 403.90 HYPTNSV CHR KID DIS, UNSPEC, W CHR KD ST 10/14/2012 Ot 414.01 CORONARY ATHEROSCLEROSIS OF [place] CORON 10/14/2012 Ot 414.8 CHR ISCHEMIC HRT [...] BODY MASS INDEX 40.0-44.9, ADULT 01/18/2015 ENOCH HENSONC, ALI FACP CCDS Ot 996.61 01/18/2015 ENOCH HENSONC, ALI FACP CCDS Ot E878.1 01/18/2015 ENOCH HENSONC, ALI FACP CCDS Ot 996.61 01/18/2015 ENOCH CARL FACC, ALI FACP CCDS Ot E878.1 01/23/2015 Ot 996.61 01/23/2015 Ot E878.1 08/07/2015 ENOCH HENSONC, ALI FACP CCDS Ot 996.61 08/07/2015 ENOCH HENSONC, ALI FACP CCDS Ot E878.1 08/12/2015 TIMOTEO CHAPMAN MD Ot 722.52 08/21/2015 ENOCH HENSONC, ALI FACP CCDS Ot 271.3 08/21/2015 ENOCH HENSONC, ALI FACP CCDS Ot 272.4 08/21/2015 ENOCH HENSONC, ALI FACP CCDS Ot 278.00 08/21/2015 ENOCH HENSONC, ALI FACP CCDS Ot 305.1 08/21/2015 ENOCH HENSONC, ALI FACP CCDS Ot 401.9 08/21/2015 ENOCH HENSONC, ALI FACP CCDS Ot 414.01 08/21/2015 ENOCH HENSONC, ALI FACP CCDS Ot 428.0 08/21/2015 ENOCH HENSONC, ALI FACP CCDS Ot 428.22 08/21/2015 ENOCH CARL FACC, ALI FACP CCDS Ot 786.09 08/21/2015 ENOCH HENSONC, ALI FACP CCDS Ot 786.59 08/21/2015 ENOCH HENSONC, ALI FACP CCDS Ot V45.82 08/21/2015 ENOCH HENSONC, ALI FACP CCDS Ot V58.69 08/21/2015 ENOCH CARL FACC, ALI FACP CCDS Ot V85.41 08/21/2015 LISSA ROBERT CARL Ot 496 10/16/2016 Ot 272.4 HYPERLIPIDEMIA NEC/NOS 10/16/2016 Ot 401.9 HYPERTENSION NOS 10/16/2016 Ot 413.9 ANGINA PECTORIS NEC/NOS 10/16/2016 Ot 414.00 CORON ATHEROSCLER NOS TYPE VESSEL, NATIV 10/16/2016 Ot 425.4 PRIM CARDIOMYOPATHY NEC 10/16/2016 Ot 786.05 SHORTNESS OF BREATH 10/16/2016 Ot V58.63 LONG-TERM(CURRENT)USE OF ANTIPLATELET/AN 10/16/2016 Ot V58.66 LONG-TERM (CURRENT) USE OF ASPIRIN 10/16/2016 Ot V58.69 OTH MED,LT,CURRENT USE 10/16/2016 Ot V72.63 PRE-PROCEDURAL LABORATORY EXAMINATION 10/16/2016 Ot V72.81 [id number] CARDIOVASCULAR 10/16/2016 Ot 724.5 BACKACHE NOS 10/21/2016 Ot 272.4 HYPERLIPIDEMIA NEC/NOS 10/21/2016 Ot 401.9 HYPERTENSION NOS 10/21/2016 Ot 413.9 ANGINA PECTORIS NEC/NOS 10/21/2016 Ot 414.00 CORON ATHEROSCLER NOS TYPE VESSEL, NATIV 10/21/2016 Ot 425.4 PRIM CARDIOMYOPATHY NEC 10/21/2016 Ot 786.05 SHORTNESS OF BREATH 10/21/2016 Ot V58.63 LONG-TERM(CURRENT)USE OF ANTIPLATELET/AN 10/21/2016 Ot V58.66 LONG-TERM (CURRENT) USE OF ASPIRIN 10/21/2016 Ot V58.69 OT MED,LT,CURRENT USE 10/21/2016 Ot V72.63 PRE-PROCEDURAL LABORATORY EXAMINATION 10/21/2016 Ot V72.81 [id number] CARDIOVASCULAR 10/21/2016 Ot 724.5 BACKACHE NOS 10/21/2016 ROBERT ALCARAZ MD Ot I51.7 CARDIOMEGALY 10/21/2016 ROBERT ALCARAZ MD Ot J90 PLEURAL EFFUSION, NOT ELSEWHERE CLASSIFI 10/21/2016 ROBERT ALCARAZ MD Ot J98.11 ATELECTASIS 10/28/2016 ENOCH CARL FACC, ALI FACP CCDS Ot E66.01 MORBID (SEVERE) OBESITY DUE TO EXCESS CA 10/28/2016 ENOCH CARL FACCarolina, ALI FACP CCDS Ot E78.4 OTHER HYPERLIPIDEMIA 10/28/2016 ENOCH CARL FACC, ALI FACP CCDS Ot G47.33 OBSTRUCTIVE SLEEP APNEA (ADULT) (PEDIATR 10/28/2016 ENOCH CARL FACC, ALI FACP CCDS Ot I10 ESSENTIAL (PRIMARY) HYPERTENSION 10/28/2016 ENOCH CARL FACC, ALI FACP CCDS Ot I25.10 ATHSCL HEART DISEASE OF [place] CORONARY 10/28/2016 ENOCH CARL FACC, ALI FACP [...] HEART DISEASE WITH HEART FA 10/30/2016 ENOCH HENSONC, ALI FACP CCDS Ot I25.10 ATHSCL HEART DISEASE OF [place] CORONARY 10/30/2016 ENOCH CARL FACC, ALI FACP CCDS Ot I50.23 ACUTE ON CHRONIC SYSTOLIC (CONGESTIVE) H 10/30/2016 ENOCH HENSONC, ALI FACP CCDS Ot R06.02 SHORTNESS OF BREATH 10/30/2016 ENOCH HENSONC, ALI FACP CCDS Ot E66.01 MORBID (SEVERE) OBESITY DUE TO EXCESS CA 10/30/2016 ENOCH HENSONC, ALI FACP CCDS Ot E78.4 OTHER HYPERLIPIDEMIA 10/30/2016 ENOCH HENSONC, ALI FACP CCDS Ot G47.33 OBSTRUCTIVE SLEEP APNEA (ADULT) (PEDIATR 10/30/2016 ENOCH CARL FACC, ALI FACP CCDS Ot I11.0 HYPERTENSIVE HEART DISEASE WITH HEART FA 10/30/2016 ENOCH HENSONC, ALI FACP CCDS Ot I25.10 ATHSCL HEART DISEASE OF [place] CORONARY 10/30/2016 ENOCH CARL FACC, ALI FACP CCDS Ot I50.23 ACUTE ON CHRONIC SYSTOLIC (CONGESTIVE) H 10/30/2016 ENOCH HENSONC, ALI FACP CCDS Ot R06.02 SHORTNESS OF BREATH 11/18/2016 ROBERT ALCARAZ MD Ot I51.7 CARDIOMEGALY 11/18/2016 ROBERT ALCARAZ MD Ot J90 PLEURAL EFFUSION, NOT ELSEWHERE CLASSIFI 11/18/2016 ROBERT ALCARAZ MD Ot J98.11 ATELECTASIS 11/27/2016 ENOCH HENSONC, ALI FACP CCDS Ot E66.01 MORBID (SEVERE) OBESITY DUE TO EXCESS CA 11/27/2016 ENOCH CARL FACC, ALI FACP CCDS Ot E78.4 OTHER HYPERLIPIDEMIA 11/27/2016 ENOCH HENSONC, ALI FACP CCDS Ot G47.33 OBSTRUCTIVE SLEEP APNEA (ADULT) (PEDIATR 11/27/2016 ENOCH CARL FACC, ALI FACP CCDS Ot I10 ESSENTIAL (PRIMARY) HYPERTENSION 11/27/2016 ENOCH CARL FACC, ALI FACP CCDS Ot I25.10 ATHSCL HEART DISEASE OF [place] CORONARY 11/27/2016 ENOCH CARL FACC, ALI FACP [...] HEART DISEASE WITH HEART FA 11/27/2016 ENOCH CARL FACC, ALI FACP CCDS Ot I25.10 ATHSCL HEART DISEASE OF [place] CORONARY 11/27/2016 ENOCH CARL FACC, ALI FACP [...] 786.05 SHORTNESS OF BREATH 12/15/2016 Ot V58.63 LONG-TERM(CURRENT)USE OF ANTIPLATELET/AN 12/15/2016 Ot V58.66 LONG-TERM (CURRENT) USE OF ASPIRIN 12/15/2016 Ot V58.69 OTH MED,LT,CURRENT USE 12/15/2016 Ot V72.63 PRE-PROCEDURAL LABORATORY EXAMINATION 12/15/2016 Ot V72.81 DINO-VNK-SLXIKQTCD CARDIOVASCULAR 12/15/2016 Ot 724.5 BACKACHE NOS 12/15/2016 ENOCH CARL FACC, JOSE CARLOS FACP CCDS Ot E66.01 MORBID (SEVERE) OBESITY DUE TO EXCESS CA 12/15/2016 ENOCH CARL FACC, ALI FACP CCDS Ot E78.4 OTHER HYPERLIPIDEMIA 12/15/2016 ENOCH CARL FACC, ALI FACP CCDS Ot G47.33 OBSTRUCTIVE SLEEP APNEA (ADULT) (PEDIATR 12/15/2016 ENOCH CARL FACC, ALI FACP CCDS Ot I10 ESSENTIAL (PRIMARY) HYPERTENSION 12/15/2016 ENOCH CARL FACC, ALI FACP CCDS Ot I25.10 ATHSCL HEART DISEASE OF [place] CORONARY 12/15/2016 ENOCH CARL FACC, ALI FACP [...] CCDS Ot I25.10 ATHSCL HEART DISEASE OF [place] CORONARY 12/15/2016 ENOCH CARL FACC, ALI FACP CCDS Ot I50.23 ACUTE ON CHRONIC SYSTOLIC (CONGESTIVE) H 12/15/2016 ENOCH CARL FACC, ALI FACP CCDS Ot R06.02 SHORTNESS OF BREATH 12/15/2016 LISSA CARL, ROBERT Bryant Ot I51.7 CARDIOMEGALY 12/15/2016 ROBERT ALCARAZ MD Ot J90 PLEURAL EFFUSION, NOT ELSEWHERE CLASSIFI 12/15/2016 ROBERT ALCARAZ MD Ot J98.11 ATELECTASIS 12/21/2016 CARMELO DAVIS DO Ot E66.01 MORBID (SEVERE) OBESITY DUE TO EXCESS CA 12/21/2016 CARMELO DAVIS DO Ot I25.10 ATHSCL HEART DISEASE OF [place] CORONARY 12/21/2016 CARMELO DAVIS DO Ot I50.22 [...] 786.05 SHORTNESS OF BREATH 12/22/2016 Ot V58.63 LONG-TERM(CURRENT)USE OF ANTIPLATELET/AN 12/22/2016 Ot V58.66 LONG-TERM (CURRENT) USE OF ASPIRIN 12/22/2016 Ot V58.69 OTH MED,LT,CURRENT USE 12/22/2016 Ot V72.63 PRE-PROCEDURAL LABORATORY EXAMINATION 12/22/2016 Ot V72.81 [id number] CARDIOVASCULAR 12/22/2016 Ot 724.5 BACKACHE NOS 12/22/2016 ENOCH CARL FACC, ALI FACP CCDS [...] CCDS Ot I25.10 ATHSCL HEART DISEASE OF [place] CORONARY 12/22/2016 ENOCH HENSON, ALI FACP CCDS Ot I50.23 ACUTE ON CHRONIC SYSTOLIC (CONGESTIVE) H 12/22/2016 ENOCH CARL FACC, ALI FACP CCDS Ot R06.02 SHORTNESS OF BREATH 12/22/2016 ENOCH CARL FACC, ALI FACP CCDS Ot E66.01 MORBID (SEVERE) OBESITY DUE TO EXCESS CA 12/22/2016 ENOCH HENSONC, ALI FACP CCDS Ot E78.4 OTHER HYPERLIPIDEMIA 12/22/2016 ENOCH CARL FACC, ALI FACP CCDS Ot G47.33 OBSTRUCTIVE SLEEP APNEA (ADULT) (PEDIATR 12/22/2016 ENOCH CARL FACC, ALI FACP CCDS Ot I11.0 HYPERTENSIVE HEART DISEASE WITH HEART FA 12/22/2016 ENOCH CARL FACC, ALI FACP CCDS Ot I25.10 ATHSCL HEART DISEASE OF [place] CORONARY 12/22/2016 ENOCH CARL FACC, JOSE CARLOS FACP CCDS Ot I50.23 ACUTE ON CHRONIC SYSTOLIC (CONGESTIVE) H 12/22/2016 ENOCH CARL FACC, ALI FACP CCDS Ot R06.02 SHORTNESS OF BREATH 12/22/2016 ROBERT ALCARAZ MD Ot I51.7 CARDIOMEGALY 12/22/2016 ROBERT ALCARAZ MD Ot J90 PLEURAL EFFUSION, NOT ELSEWHERE CLASSIFI 12/22/2016 ROBERT ALCARAZ MD Ot J98.11 ATELECTASIS 12/22/2016 CARMELO DAVIS DO Ot E66.01 MORBID (SEVERE) OBESITY DUE TO EXCESS CA 12/22/2016 CARMELO DAVIS DO Ot I25.10 ATHSCL HEART DISEASE OF [place] CORONARY 12/22/2016 CARMELO DAVIS DO Ot I50.22 CHRONIC SYSTOLIC (CONGESTIVE) HEART FAIL 12/22/2016 CARMELO DAVIS DO Ot J43.8 OTHER EMPHYSEMA 12/22/2016 CARMELO DAVIS DO Ot R53.83 OTHER FATIGUE 12/22/2016 CARMELO DAVIS DO Ot Z72.0 TOBACCO USE 12/23/2016 SURINDER PATTON APRN Ot R06.02 SHORTNESS OF BREATH 12/25/2016 SURINDER PATTON APRN Ot I25.10 ATHSCL HEART DISEASE OF [place] CORONARY 12/25/2016 SURINDER PATTON R INSTRUCTOR OF EDUCATION Ot I51.7 CARDIOMEGALY 12/25/2016 POOJA SURINDER Hightower INSTRUCTOR OF EDUCATION Ot J90 PLEURAL EFFUSION, NOT ELSEWHERE CLASSIFI 12/30/2016 POOJA SURINDER Hightower INSTRUCTOR OF EDUCATION Ot I25.10 ATHSCL HEART DISEASE OF [place] CORONARY 12/30/2016 POOJA SURINDER Hightower INSTRUCTOR OF EDUCATION Ot I51.7 CARDIOMEGALY 12/30/2016 POOJA SURINDER Hightower INSTRUCTOR OF EDUCATION Ot J90 PLEURAL EFFUSION, NOT ELSEWHERE CLASSIFI 01/01/2017 TIMOTEO CHAPMAN MD, Ot M47.816 SPONDYLOSIS W/O MYELOPATHY OR RADICULOPA 01/01/2017 TIMOTEO CHAPMAN MD, Ot M51.16 INTERVERTEBRAL DISC DISORDERS W RADICULO 01/01/2017 TIMOTEO CHAPMAN MD, Ot M53.3 SACROCOCCYGEAL DISORDERS, NOT ELSEWHERE 01/01/2017 TIMOTEO CHAPMAN MD Ot Z79.02 MCC (CURRENT) USE OF ANTITHROMBOTI 01/01/2017 TIMOTEO CHAPMAN MD, Ot Z79.899 OTHER MCC (CURRENT) DRUG THERAPY 01/06/2017 TIMOTEO CHAPMAN MD, Ot M47.816 SPONDYLOSIS W/O MYELOPATHY OR RADICULOPA 01/06/2017 TIMOTEO CHAPMAN MD, Ot M51.16 INTERVERTEBRAL DISC DISORDERS W RADICULO 01/06/2017 TIMOTEO CHAPMAN MD, Ot M53.3 SACROCOCCYGEAL DISORDERS, NOT ELSEWHERE 01/06/2017 TIMOTEO CHAPMAN MD Ot Z79.02 MCC (CURRENT) USE OF ANTITHROMBOTI 01/06/2017 TIMOTEO CHAPMAN MD, Ot Z79.899 OTHER MCC (CURRENT) DRUG THERAPY 02/08/2017 TIMOTEO CHAPMAN MD Ot M43.06 SPONDYLOLYSIS, LUMBAR REGION 02/11/2017 ENOCH CARL FACC, ALI SIXTOP CCDS Ot G47.33 OBSTRUCTIVE SLEEP APNEA (ADULT) (PEDIATR 02/11/2017 ENOCH CARL FACC, JOSE CARLOS HNESONP CCDS Ot I25.10 ATHSCL HEART DISEASE OF [place] CORONARY 02/11/2017 ENOCH CARL FACC, JOSE CARLOS HENSONP CCDS Ot I25.5 ISCHEMIC CARDIOMYOPATHY 02/11/2017 ENOCH CARL FACC, JOSE CARLOS HENSONP CCDS Ot I50.23 ACUTE ON CHRONIC SYSTOLIC (CONGESTIVE) H 02/11/2017 ENOCH MD FACC, ALI FACP CCDS Ot I65.23 OCCLUSION [...] CCDS Ot I25.10 ATHSCL HEART DISEASE OF [place] CORONARY 02/11/2017 ENOCH CARL FACC, ALI FACP CCDS Ot I25.5 ISCHEMIC CARDIOMYOPATHY 02/11/2017 ENOCH CARL FACC, ALI FACP CCDS Ot I50.23 ACUTE ON CHRONIC SYSTOLIC (CONGESTIVE) H 02/11/2017 ENOCH CARL FACC, ALI FACP CCDS Ot I65.23 OCCLUSION AND STENOSIS OF [place] 02/11/2017 ENOCH CARL FACC, ALI FACP CCDS Ot I70.0 ATHEROSCLEROSIS OF [place] 02/11/2017 ENOCH CARL FACCarolina, ALI FACP CCDS Ot I70.8 ATHEROSCLEROSIS OF [...] Ot M51.36 OTHER INTERVERTEBRAL DISC DEGENERATION, 12/08/2017 ROBERT ALCARAZ MD Ot I50.9 HEART FAILURE, UNSPECIFIED 12/08/2017 ROBERT ALCARAZ MD Ot J44.9 CHRONIC OBSTRUCTIVE PULMONARY DISEASE, U 12/09/2017 ENOCH HENSONC, ALI FACP CCDS Ot E66.01 [...] CCDS Ot I25.10 ATHSCL HEART DISEASE OF [place] CORONARY 12/09/2017 ENOCH CARL FACC, ALI FACP [...] HEART DISEASE WITH HEART FA 12/09/2017 ENOCH HENSONC, ALI FACP CCDS Ot I25.10 ATHSCL HEART DISEASE OF [place] CORONARY 12/09/2017 ENOCH HENSONC, ALI FACP CCDS Ot I50.23 ACUTE ON CHRONIC SYSTOLIC (CONGESTIVE) H 12/09/2017 ENOCH CARL FACC, ALI FACP CCDS Ot R06.02 SHORTNESS OF BREATH 12/09/2017 ROBERT ALCARAZ MD Ot I51.7 CARDIOMEGALY 12/09/2017 ROBERT ALCARAZ MD Ot J90 PLEURAL EFFUSION, NOT ELSEWHERE CLASSIFI 12/09/2017 ROBERT ALCARAZ MD Ot J98.11 ATELECTASIS 12/09/2017 SURINDER PATTON APRN Ot R06.02 SHORTNESS OF BREATH 12/09/2017 SURINDER PATTON INSTRUCTOR OF EDUCATION Ot I25.10 ATHSCL HEART DISEASE OF [place] CORONARY 12/09/2017 SURINDER PATTON INSTRUCTOR OF EDUCATION Ot I51.7 CARDIOMEGALY 12/09/2017 SURINDER PATTON INSTRUCTOR OF EDUCATION Ot J90 PLEURAL EFFUSION, NOT ELSEWHERE CLASSIFI 12/09/2017 ARI CARL, TIMOTEO Sanchez Ot M43.06 SPONDYLOLYSIS, LUMBAR REGION 12/09/2017 ENOCH CARL FACC, ALI FACP CCDS Ot G47.33 OBSTRUCTIVE SLEEP APNEA (ADULT) (PEDIATR 12/09/2017 ENOCH HENSONC, ALI FACP CCDS Ot I25.10 ATHSCL HEART DISEASE OF [place] CORONARY 12/09/2017 ENOCH CARL FACC, ALI FACP [...] CCDS Ot M54.5 LOW BACK PAIN 12/09/2017 LISSA CARL, ROBERT Bryant Ot I50.9 HEART FAILURE, UNSPECIFIED 12/09/2017 ROBERT ALCARAZ MD Ot J44.9 CHRONIC OBSTRUCTIVE PULMONARY DISEASE, U 12/17/2017 ENOCH CARL FACC, ALI FACP CCDS Ot E66.8 OTHER OBESITY 12/17/2017 ENOCH CARL FACC, ALI FACP CCDS Ot G47.33 OBSTRUCTIVE SLEEP APNEA (ADULT) (PEDIATR 12/17/2017 ENOCH CARL FACC, ALI FACP CCDS Ot I25.10 ATHSCL HEART DISEASE OF [place] CORONARY 12/17/2017 ENOCH CARL FACC, ALI FACP CCDS Ot I25.2 OLD MYOCARDIAL INFARCTION 12/17/2017 ENOCH CARL FACC, ALI FACP CCDS Ot I25.5 ISCHEMIC CARDIOMYOPATHY 12/17/2017 ENOCH MD FACC, ALI FACP CCDS Ot I50.22 CHRONIC SYSTOLIC (CONGESTIVE) HEART FAIL 12/17/2017 ENOCH HENSONC, ALI FACP CCDS Ot J43.8 OTHER EMPHYSEMA 12/17/2017 ENOCH HENSONC, ALI FACP CCDS Ot R06.02 SHORTNESS OF BREATH 12/17/2017 ENOCH CARL FACC, ALI FACP CCDS Ot R73.02 IMPAIRED GLUCOSE TOLERANCE (ORAL) 12/22/2017 ENOCH HENSONC, ALI FACP CCDS Ot E66.8 OTHER OBESITY 12/22/2017 ENOCH CARL FACC, ALI FACP CCDS Ot G47.33 OBSTRUCTIVE SLEEP APNEA (ADULT) (PEDIATR 12/22/2017 ENOCH HENSONC, ALI FACP CCDS Ot I21.9 ACUTE MYOCARDIAL INFARCTION, UNSPECIFIED 12/22/2017 ENOCH CARL FACC, ALI FACP CCDS Ot I25.10 ATHSCL HEART DISEASE OF [place] CORONARY 12/22/2017 ENOCH CARL FACC, ALI FACP CCDS Ot I25.2 OLD MYOCARDIAL INFARCTION 12/22/2017 ENOCH HENSONC, ALI FACP CCDS Ot I25.5 ISCHEMIC CARDIOMYOPATHY [...] OBESITY WITH ALVEOLAR HY 12/28/2017 CECE PHOENIX APRN Ot J43.8 OTHER EMPHYSEMA 12/28/2017 ROBERT ALCARAZ MD Ot I50.9 HEART FAILURE, UNSPECIFIED 12/28/2017 ROBERT ALCARAZ MD Ot J44.9 CHRONIC OBSTRUCTIVE PULMONARY DISEASE, U 01/02/2018 CECE PHOENIX APRN Ot E66.2 MORBID (SEVERE) OBESITY WITH ALVEOLAR HY 01/02/2018 CECE PHOENIX APRN Ot J43.8 OTHER EMPHYSEMA 01/18/2018 ROBERT ALCARAZ MD Ot J44.9 CHRONIC OBSTRUCTIVE PULMONARY DISEASE, U 04/05/2018 ENOCH MD FAC, ALI FACP CCDS Ot J44.9 CHRONIC OBSTRUCTIVE PULMONARY DISEASE, U 04/05/2018 ENOCH MD FACC, ALI FACP CCDS Ot R06.02 SHORTNESS OF BREATH 04/05/2018 ENOCH MD FACC, ALI FACP CCDS Ot J44.9 CHRONIC OBSTRUCTIVE PULMONARY DISEASE, U 04/05/2018 ENOCH MD FACC, ALI FACP CCDS Ot R06.02 SHORTNESS OF BREATH 04/07/2018 ENOCH MD FACC, ALI FACP CCDS Ot J44.9 CHRONIC OBSTRUCTIVE PULMONARY DISEASE, U 04/07/2018 ENOCH MD FACC, ALI FACP CCDS Ot R06.02 SHORTNESS OF BREATH 04/28/2018 PRITI COLT L AIR CONDITIONING MECHANIC INDUSTRIAL Ot E66.2 MORBID (SEVERE) OBESITY WITH ALVEOLAR HY 04/28/2018 SEDA MARCOSHER L AIR CONDITIONING MECHANIC INDUSTRIAL Ot E78.5 HYPERLIPIDEMIA, UNSPECIFIED 04/28/2018 AZRAMA COLT L AIR CONDITIONING MECHANIC INDUSTRIAL Ot I11.0 HYPERTENSIVE HEART DISEASE WITH HEART FA 04/28/2018 AZRAMA COLT L AIR CONDITIONING MECHANIC INDUSTRIAL Ot I25.10 ATHSCL HEART DISEASE OF [place] CORONARY 04/28/2018 AZRAMA COLT L AIR CONDITIONING MECHANIC INDUSTRIAL Ot I25.5 ISCHEMIC CARDIOMYOPATHY 04/28/2018 PRITI COLT L AIR CONDITIONING MECHANIC INDUSTRIAL Ot I50.22 CHRONIC SYSTOLIC (CONGESTIVE) HEART FAIL 04/28/2018 SEDA MARCOSHER L AIR CONDITIONING MECHANIC INDUSTRIAL Ot J44.9 CHRONIC OBSTRUCTIVE PULMONARY DISEASE, U 04/28/2018 SEDA MARCOSHER L AIR CONDITIONING MECHANIC INDUSTRIAL Ot R09.02 HYPOXEMIA 04/28/2018 PRITI COLT L AIR CONDITIONING MECHANIC INDUSTRIAL Ot Z68.41 BODY MASS INDEX (BMI) 40.0-44.9, ADULT 04/28/2018 AZRAZARI COLT L AIR CONDITIONING MECHANIC INDUSTRIAL Ot Z87.891 PERSONAL HISTORY OF NICOTINE DEPENDENCE 04/28/2018 SEDA MARCOSHER L AIR CONDITIONING MECHANIC INDUSTRIAL Ot E66.2 MORBID (SEVERE) OBESITY WITH ALVEOLAR HY 04/28/2018 AZRAMA COLT L AIR CONDITIONING MECHANIC INDUSTRIAL Ot E78.5 HYPERLIPIDEMIA, UNSPECIFIED 04/28/2018 BAIMA, COLT L AIR CONDITIONING MECHANIC INDUSTRIAL Ot I11.0 HYPERTENSIVE HEART DISEASE WITH HEART FA 04/28/2018 AZRAMA COLT L AIR CONDITIONING MECHANIC INDUSTRIAL Ot I25.10 ATHSCL HEART DISEASE OF [place] CORONARY 04/28/2018 COLT MARCOS AIR CONDITIONING MECHANIC INDUSTRIAL Ot I25.5 ISCHEMIC CARDIOMYOPATHY 04/28/2018 COLT MARCOS AIR CONDITIONING MECHANIC INDUSTRIAL Ot I50.22 CHRONIC SYSTOLIC (CONGESTIVE) HEART FAIL 04/28/2018 COLT MARCOS AIR CONDITIONING MECHANIC INDUSTRIAL Ot J44.9 CHRONIC OBSTRUCTIVE PULMONARY DISEASE, U 04/28/2018 COLT MARCOS AIR CONDITIONING MECHANIC INDUSTRIAL Ot R09.02 HYPOXEMIA 04/28/2018 COLT MARCOS AIR CONDITIONING MECHANIC INDUSTRIAL Ot Z68.41 BODY MASS INDEX (BMI) 40.0-44.9, ADULT 04/28/2018 COLT MARCOS AIR CONDITIONING MECHANIC INDUSTRIAL Ot Z87.891 PERSONAL HISTORY OF NICOTINE DEPENDENCE [...] MON 08/22/2018 SURINDER PATTON APRN Ot Z79.891 GOLD TOOLER (CURRENT) USE OF OPIATE ANALGE 08/26/2018 MINNIE [...] ENCOUNTER FOR SCREENING FOR OTHER BACTER 09/09/2018 ROBERT ALCARAZ MD, Ot J44.9 CHRONIC OBSTRUCTIVE PULMONARY DISEASE, U 09/09/2018 SURINDER PATTON APRN Ot Z51.81 ENCOUNTER FOR THERAPEUTIC DRUG LEVEL MON 09/09/2018 SURINDER PATTON APRN Ot Z79.891 MCC (CURRENT) USE OF OPIATE ANALGE 09/09/2018 MINNIE BELL MD Ot J32.0 CHRONIC MAXILLARY SINUSITIS 09/09/2018 MINNIE BELL MD, Ot J38.7 OTHER DISEASES OF [place] 09/09/2018 MINNIE BELL MD Ot J43.9 EMPHYSEMA, UNSPECIFIED 09/09/2018 MINNIE BELL MD Ot Z95.810 PRESENCE OF AUTOMATIC (IMPLANTABLE) CARD 09/09/2018 MINNIE BELL MD Ot C32.1 MALIGNANT NEOPLASM OF SUPRAGLOTTIS 09/09/2018 MINNIE BELL MD Ot I10 ESSENTIAL (PRIMARY) HYPERTENSION 09/09/2018 MINNIE BELL MD Ot I25.10 ATHSCL HEART DISEASE OF [place] CORONARY 09/09/2018 MINNIE BELL MD Ot I65.23 OCCLUSION AND STENOSIS OF BILATERAL [place] 09/09/2018 MINNIE BELL MD Ot J44.9 CHRONIC OBSTRUCTIVE PULMONARY DISEASE, U 09/09/2018 MINNIE BELL MD Ot K21.9 GASTRO-ESOPHAGEAL REFLUX DISEASE WITHOUT 09/09/2018 MINNIE BELL MD Ot Z79.02 GOLD TOOLER (CURRENT) USE OF ANTITHROMBOTI 09/09/2018 MINNIE BELL MD Ot Z79.899 OTHER MCC (CURRENT) DRUG THERAPY 09/09/2018 MINNIE BELL MD Ot Z87.891 PERSONAL HISTORY OF NICOTINE DEPENDENCE 09/10/2018 SURINDER PATTON APRN Ot Z51.81 ENCOUNTER FOR THERAPEUTIC DRUG LEVEL MON 09/10/2018 SURINDER PATOTN APRN Ot Z79.891 GOLD TOOLER (CURRENT) USE OF OPIATE ANALGE 09/13/2018 MINNIE BELL MD Ot C32.1 MALIGNANT NEOPLASM OF SUPRAGLOTTIS 09/13/2018 MINNIE BELL MD Ot I10 ESSENTIAL (PRIMARY) HYPERTENSION 09/13/2018 MINNIE BELL MD Ot I25.10 ATHSCL HEART DISEASE OF [place] CORONARY 09/13/2018 MINNIE BELL MD Ot I65.23 OCCLUSION AND STENOSIS OF BILATERAL [place] 09/13/2018 MINNIE BELL MD, Ot J44.9 CHRONIC OBSTRUCTIVE PULMONARY DISEASE, U 09/13/2018 MINNIE BELL MD, Ot K21.9 GASTRO-ESOPHAGEAL REFLUX DISEASE WITHOUT 09/13/2018 MINNIE BELL MD, Ot Z79.02 GOLD TOOLER (CURRENT) USE OF ANTITHROMBOTI 09/13/2018 MINNIE BELL MD, Ot Z79.899 OTHER MCC (CURRENT) DRUG THERAPY 09/13/2018 MINNIE BELL MD, [...] CCDS Ot I25.10 ATHSCL HEART DISEASE OF [place] CORONARY 09/19/2018 ENOCH CARL FACC, ALI FACP CCDS Ot I25.2 OLD MYOCARDIAL INFARCTION 09/19/2018 ENOCH CARL FACC, ALI FACP CCDS Ot I25.5 ISCHEMIC CARDIOMYOPATHY 09/19/2018 ENOCH CARL FACC, ALI FACP CCDS [...] MD Ot I25.10 ATHSCL HEART DISEASE OF [place] CORONARY 10/05/2018 LIZZ MEZA MD Ot J44.9 CHRONIC OBSTRUCTIVE PULMONARY DISEASE, U 10/05/2018 LIZZ MEZA MD Ot K21.9 GASTRO-ESOPHAGEAL REFLUX DISEASE WITHOUT 10/05/2018 LIZZ MEZA MD Ot Z79.02 MCC (CURRENT) USE OF ANTITHROMBOTI 10/05/2018 LIZZ MEZA MD Ot Z79.899 OTHER MCC (CURRENT) DRUG THERAPY 10/05/2018 LIZZ MEZA MD Ot Z87.891 PERSONAL HISTORY OF NICOTINE DEPENDENCE 10/05/2018 LIZZ MEZA MD Ot C32.1 MALIGNANT NEOPLASM OF SUPRAGLOTTIS 10/05/2018 LIZZ MEZA MD Ot I10 ESSENTIAL (PRIMARY) HYPERTENSION 10/05/2018 LIZZ MEZA MD Ot I25.10 ATHSCL HEART DISEASE OF [place] CORONARY 10/05/2018 LIZZ MEZA MD Ot J44.9 CHRONIC OBSTRUCTIVE PULMONARY DISEASE, U 10/05/2018 LIZZ MEZA MD Ot K21.9 GASTRO-ESOPHAGEAL REFLUX DISEASE WITHOUT 10/05/2018 LIZZ MEZA MD Ot Z79.02 GOLD TOOLER (CURRENT) USE OF ANTITHROMBOTI 10/05/2018 LIZZ MEZA MD Ot Z79.899 OTHER GOLD TOOLER (CURRENT) DRUG THERAPY 10/05/2018 LIZZ MEZA MD Ot Z87.891 PERSONAL HISTORY OF NICOTINE DEPENDENCE 10/07/2018 ADAMA DO, ELVA K Ot 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, UNSPECIFI 10/07/2018 ADAMA DO, ELVA K Ot E86.0 DEHYDRATION 10/07/2018 ADAMA DO ELVA K Ot I10 ESSENTIAL (PRIMARY) HYPERTENSION 10/07/2018 ADAMA DO, ELVA K Ot I25.10 ATHSCL HEART DISEASE OF [place] CORONARY 10/07/2018 ADAMA CHEATHAM ELVA Grant Ot I25.2 OLD MYOCARDIAL INFARCTION 10/07/2018 ADAMA CHEATHAM ELVA K Ot J44.9 CHRONIC OBSTRUCTIVE PULMONARY DISEASE, U 10/07/2018 ELVA GALAN DO Grant Ot K06.8 OTH DISRD OF [place] AND EDENTULOUS ALVE 10/07/2018 ADAMA CHEATHAM ELVA Grant Ot 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 10/07/2018 ADAMA CHEATHAM ELVA Grant Ot Z79.02 GOLD TOOLER (CURRENT) USE OF ANTITHROMBOTI 10/07/2018 ADAMA ELVA Ot Z79.82 MCC (CURRENT) USE OF ASPIRIN 10/07/2018 ELVA GALAN DO Ot Z87.891 PERSONAL HISTORY OF NICOTINE DEPENDENCE 10/07/2018 ADAMA ELVA K Ot Z88.8 ALLERGY STATUS TO OT DRUG/MEDS/BIOL SUB 10/07/2018 ADAMA CHEATHAM ELVA Grant Ot Z95.5 PRESENCE OF CORONARY ANGIOPLASTY IMPLANT 10/07/2018 ADAMA CHEATHAM ELVA K Ot 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, UNSPECIFI 10/07/2018 ADAMA ELVA Grant Ot E86.0 DEHYDRATION 10/07/2018 ADAMA ELVA K Ot I10 ESSENTIAL (PRIMARY) HYPERTENSION 10/07/2018 ADAMA ELVA Grant Ot I25.10 ATHSCL HEART DISEASE OF [place] CORONARY 10/07/2018 ADAMA ELVA Grant Ot I25.2 OLD MYOCARDIAL INFARCTION 10/07/2018 ADAMA CHEATHAM ELVA K Ot J44.9 CHRONIC OBSTRUCTIVE PULMONARY DISEASE, U 10/07/2018 ADAMA ELVA Grant Ot K06.8 OTH DISRD OF [place] AND EDENTULOUS ALVE 10/07/2018 ADAMA ELVA Grant Ot 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 10/07/2018 ADAMA ELVA K Ot Z79.02 GOLD TOOLER (CURRENT) USE OF ANTITHROMBOTI 10/07/2018 ELVA GALAN DO Ot Z79.82 GOLD TOOLER (CURRENT) USE OF ASPIRIN 10/07/2018 ELVA GALAN DO Ot Z87.891 PERSONAL HISTORY OF NICOTINE DEPENDENCE 10/07/2018 ELVA GALAN DO Ot Z88.8 ALLERGY STATUS TO OTH DRUG/MEDS/BIOL SUB 10/07/2018 ELVA GALAN DO Ot Z95.5 PRESENCE OF CORONARY ANGIOPLASTY IMPLANT 10/28/2018 ENOCH HENSONC, ALI FACP CCDS Ot E66.01 MORBID (SEVERE) OBESITY DUE TO EXCESS CA 10/28/2018 ENOCH HENSONC, ALI FACP CCDS Ot E78.4 OTHER HYPERLIPIDEMIA 10/28/2018 ENOCH HENSONC, ALI FACP CCDS Ot G47.33 OBSTRUCTIVE SLEEP APNEA (ADULT) (PEDIATR 10/28/2018 ENOCH HENSONC, ALI FACP CCDS Ot I10 ESSENTIAL (PRIMARY) HYPERTENSION 10/28/2018 ENOCH HENSONC, ALI FACP CCDS Ot I25.10 ATHSCL HEART DISEASE OF [place] CORONARY 10/28/2018 ENOCH HENSONC, ALI FACP CCDS [...] CCDS Ot I25.10 ATHSCL HEART DISEASE OF [place] CORONARY 10/28/2018 ENOCH CARL FACC, ALI FACP CCDS Ot I50.23 ACUTE ON CHRONIC SYSTOLIC (CONGESTIVE) H 10/28/2018 ENOCH CARL FACC, ALI FACP CCDS Ot R06.02 SHORTNESS OF BREATH 10/28/2018 ROBERT ALCARAZ MD Ot I51.7 CARDIOMEGALY 10/28/2018 ROBERT ALCARAZ MD Ot J90 PLEURAL EFFUSION, NOT ELSEWHERE CLASSIFI 10/28/2018 ROBERT ALCARAZ MD Ot J98.11 ATELECTASIS 10/28/2018 SURINDER PATTON INSTRUCTOR OF EDUCATION Ot R06.02 SHORTNESS OF BREATH 10/28/2018 SURINDER PATTON INSTRUCTOR OF EDUCATION Ot I25.10 ATHSCL HEART DISEASE OF [place] CORONARY 10/28/2018 SURINDER PATTON INSTRUCTOR OF EDUCATION Ot I51.7 CARDIOMEGALY 10/28/2018 SURINDER PATTON INSTRUCTOR OF EDUCATION Ot J90 PLEURAL EFFUSION, NOT ELSEWHERE CLASSIFI 10/28/2018 ARI CARL, TIMOTEO Sanchez Ot M43.06 SPONDYLOLYSIS, LUMBAR REGION 10/28/2018 ENOCH CARL FACC, ALI FACP CCDS Ot G47.33 OBSTRUCTIVE SLEEP APNEA (ADULT) (PEDIATR 10/28/2018 ENOCH CARL FACC, ALI FACP CCDS Ot I25.10 ATHSCL HEART DISEASE OF [place] CORONARY 10/28/2018 ENOCH CARL FACC, ALI FACP [...] Ot 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 10/28/2018 ENOCH CARL FACC, ALI FACP CCDS Ot J43.8 OTHER EMPHYSEMA 10/28/2018 ENOCH CARL FACC, ALI FACP CCDS Ot M54.5 LOW BACK PAIN 10/28/2018 ROBERT ALCARAZ MD Ot I50.9 HEART FAILURE, UNSPECIFIED 10/28/2018 ROBERT ALCARAZ MD Ot J44.9 CHRONIC OBSTRUCTIVE PULMONARY DISEASE, U 10/28/2018 ENOCH HENSONC, ALI FACP CCDS Ot E66.8 OTHER OBESITY 10/28/2018 ENOCH CARL FACC, ALI FACP CCDS Ot G47.33 OBSTRUCTIVE SLEEP APNEA (ADULT) (PEDIATR 10/28/2018 ENOCH HENSONC, ALI FACP CCDS Ot I25.10 ATHSCL HEART DISEASE OF [place] CORONARY 10/28/2018 ENOCH HENSONC, ALI FACP CCDS Ot I25.2 OLD MYOCARDIAL INFARCTION 10/28/2018 ENOCH HENSONC, ALI FACP CCDS Ot I25.5 ISCHEMIC CARDIOMYOPATHY [...] CCDS Ot I25.10 ATHSCL HEART DISEASE OF [place] CORONARY 10/28/2018 ENOCH CARL FACC, ALI FACP CCDS Ot I25.2 OLD MYOCARDIAL INFARCTION 10/28/2018 ENOCH CARL FACC, ALI FACP CCDS Ot I25.5 ISCHEMIC CARDIOMYOPATHY 10/28/2018 ENOCH CARL FACC, ALI FACP CCDS Ot I50.22 CHRONIC SYSTOLIC (CONGESTIVE) HEART FAIL 10/28/2018 ENOCH HENSONC, ALI FACP CCDS Ot J43.8 OTHER EMPHYSEMA 10/28/2018 ENOCH HENSONC, ALI FACP CCDS Ot R06.02 SHORTNESS OF BREATH 10/28/2018 ENOCH CARL FACC, ALI FACP CCDS Ot R73.02 IMPAIRED GLUCOSE TOLERANCE (ORAL) 10/28/2018 CECE PHOENIX APRN Ot E66.2 MORBID (SEVERE) OBESITY WITH ALVEOLAR HY 10/28/2018 CECE PHOENIX APRN Ot J43.8 OTHER EMPHYSEMA 10/28/2018 LISSA CARL, ROBERT Bryant Ot J44.9 CHRONIC OBSTRUCTIVE PULMONARY DISEASE, U 12/13/2018 DERRICK CARL, LIZZ Barnes Ot C32.1 MALIGNANT NEOPLASM OF SUPRAGLOTTIS 12/13/2018 LIZZ MEZA MD Ot I10 ESSENTIAL (PRIMARY) HYPERTENSION 12/13/2018 LIZZ MEZA MD Ot I25.10 ATHSCL HEART DISEASE OF [place] CORONARY 12/13/2018 LIZZ MEZA MD Ot J44.9 CHRONIC OBSTRUCTIVE PULMONARY DISEASE, U 12/13/2018 LIZZ MEZA MD Ot K21.9 GASTRO-ESOPHAGEAL REFLUX DISEASE WITHOUT 12/13/2018 LIZZ MEZA MD E Ot Z79.02 GOLD TOOLER (CURRENT) USE OF ANTITHROMBOTI 12/13/2018 LIZZ MEZA MD Ot Z79.899 OTHER MCC (CURRENT) DRUG THERAPY 12/13/2018 LIZZ MEZA MD Ot Z87.891 PERSONAL HISTORY OF NICOTINE DEPENDENCE 12/15/2018 LIZZ MEZA MD Ot C32.1 MALIGNANT NEOPLASM OF SUPRAGLOTTIS 12/15/2018 LIZZ MEZA MD Ot I10 ESSENTIAL (PRIMARY) HYPERTENSION 12/15/2018 LIZZ MEZA MD Ot I25.10 ATHSCL HEART DISEASE OF [place] CORONARY 12/15/2018 LIZZ MEZA MD Ot J44.9 CHRONIC OBSTRUCTIVE PULMONARY DISEASE, U 12/15/2018 LIZZ MEZA MD Ot K21.9 GASTRO-ESOPHAGEAL REFLUX DISEASE WITHOUT 12/15/2018 LIZZ MEZA MD Ot Z79.02 GOLD TOOLER (CURRENT) USE OF ANTITHROMBOTI 12/15/2018 LIZZ MEZA MD Ot Z79.899 OTHER MCC (CURRENT) DRUG THERAPY 12/15/2018 LIZZ MEZA MD Ot Z87.891 PERSONAL HISTORY OF NICOTINE DEPENDENCE 12/15/2018 LIZZ MEZA MD Ot C32.1 MALIGNANT NEOPLASM OF SUPRAGLOTTIS 12/15/2018 LIZZ MEZA MD Ot I10 ESSENTIAL (PRIMARY) HYPERTENSION 12/15/2018 LIZZ MEZA MD Ot I25.10 ATHSCL HEART DISEASE OF [place] CORONARY 12/15/2018 LIZZ MEZA MD Ot J44.9 CHRONIC OBSTRUCTIVE PULMONARY DISEASE, U 12/15/2018 LIZZ MEZA MD Ot K21.9 GASTRO-ESOPHAGEAL REFLUX DISEASE WITHOUT 12/15/2018 LIZZ MEZA MD Ot Z51.0 ENCOUNTER FOR ANTINEOPLASTIC RADIATION T 12/15/2018 LIZZ MEZA MD Ot Z79.02 MCC (CURRENT) USE OF ANTITHROMBOTI 12/15/2018 LIZZ MEZA MD Ot Z79.899 OTHER GOLD TOOLER (CURRENT) DRUG THERAPY 12/15/2018 LIZZ MEZA MD Ot Z87.891 PERSONAL HISTORY OF NICOTINE DEPENDENCE 12/19/2018 LIZZ MEZA MD Ot C32.1 MALIGNANT NEOPLASM OF SUPRAGLOTTIS 12/19/2018 LIZZ MEZA MD Ot I10 ESSENTIAL (PRIMARY) HYPERTENSION 12/19/2018 LIZZ MEZA MD Ot I25.10 ATHSCL HEART DISEASE OF [place] CORONARY 12/19/2018 LIZZ MEZA MD Ot J44.9 CHRONIC OBSTRUCTIVE PULMONARY DISEASE, U 12/19/2018 LIZZ MEZA MD Ot K21.9 GASTRO-ESOPHAGEAL REFLUX DISEASE WITHOUT 12/19/2018 LIZZ MEZA MD Ot Z51.0 ENCOUNTER FOR ANTINEOPLASTIC RADIATION T 12/19/2018 LIZZ MEZA MD Ot Z79.02 GOLD TOOLER (CURRENT) USE OF ANTITHROMBOTI 12/19/2018 LIZZ MEZA MD Ot Z79.899 OTHER MCC (CURRENT) DRUG THERAPY 12/19/2018 LIZZ MEZA MD, Ot Z87.891 PERSONAL HISTORY OF NICOTINE DEPENDENCE 01/05/2019 SURINDER PATTON INSTRUCTOR OF EDUCATION Ot Z51.81 ENCOUNTER FOR THERAPEUTIC DRUG LEVEL MON 01/05/2019 SURINDER PATTON INSTRUCTOR OF EDUCATION Ot Z79.891 MCC (CURRENT) USE OF OPIATE ANALGE 01/09/2019 MERYL CLIFFORD Ot I11.0 HYPERTENSIVE HEART DISEASE WITH HEART FA 01/09/2019 MERYL CLIFFORD Ot I25.10 ATHSCL HEART DISEASE OF [place] CORONARY 01/09/2019 MERYL CLIFFORD Ot I25.2 OLD MYOCARDIAL INFARCTION 01/09/2019 MERYL CLIFFORD Ot I50.9 HEART FAILURE, UNSPECIFIED 01/09/2019 MERYL CLIFFORD Ot J44.9 CHRONIC OBSTRUCTIVE PULMONARY DISEASE, U 01/09/2019 MERYL CLIFFORD Ot R05 COUGH 01/09/2019 MERYL CLIFFORD Ot Z79.02 GOLD TOOLER (CURRENT) USE OF ANTITHROMBOTI 01/09/2019 MERYL CLIFFORD Ot Z79.82 GOLD TOOLER (CURRENT) USE OF ASPIRIN 01/09/2019 MERYL CLIFFORD Ot Z85.818 PRSNL HX OF MALIG NEOPLM OF SITE OF LIP, 01/09/2019 MERYL CLIFFORD Ot Z87.448 PERSONAL HISTORY OF OTHER DISEASES OF UR 01/09/2019 DARRIN MERYL Ot Z87.891 PERSONAL HISTORY OF NICOTINE DEPENDENCE 01/09/2019 GLORIA CLIFFORDIS Ot Z88.8 ALLERGY STATUS TO OTH DRUG/MEDS/BIOL SUB 01/09/2019 GLORIA CLIFFORDIS Ot Z95.5 PRESENCE OF CORONARY ANGIOPLASTY IMPLANT 01/09/2019 DARRIN MERYL Ot Z95.810 PRESENCE OF AUTOMATIC (IMPLANTABLE) CARD 01/09/2019 GLORIA CLIFFORDIS Ot Z98.890 OTHER SPECIFIED POSTPROCEDURAL STATES 01/09/2019 DARRIN MERYL Ot Z99.81 DEPENDENCE ON SUPPLEMENTAL OXYGEN 02/09/2019 LIZZ MEZA MD Ot C32.1 MALIGNANT NEOPLASM OF SUPRAGLOTTIS 02/09/2019 LIZZ MEZA MD Ot I10 ESSENTIAL (PRIMARY) HYPERTENSION 02/09/2019 LIZZ MEZA MD Ot I25.10 ATHSCL HEART DISEASE OF [place] CORONARY 02/09/2019 LIZZ MEZA MD Ot J44.9 CHRONIC OBSTRUCTIVE PULMONARY DISEASE, U 02/09/2019 LIZZ MEZA MD Ot K21.9 GASTRO-ESOPHAGEAL REFLUX DISEASE WITHOUT 02/09/2019 LIZZ MEZA MD Ot Z51.0 ENCOUNTER FOR ANTINEOPLASTIC RADIATION T 02/09/2019 LIZZ MEZA MD Ot Z79.02 MCC (CURRENT) USE OF ANTITHROMBOTI 02/09/2019 LIZZ MEZA MD Ot Z79.899 OTHER MCC (CURRENT) DRUG THERAPY 02/09/2019 LIZZ MEZA MD Ot Z87.891 PERSONAL HISTORY OF NICOTINE DEPENDENCE 03/14/2019 LIZZ MEZA MD Ot C32.1 MALIGNANT NEOPLASM OF SUPRAGLOTTIS 03/14/2019 LIZZ MEZA MD Ot I10 ESSENTIAL (PRIMARY) HYPERTENSION 03/14/2019 LIZZ MEZA MD Ot I25.10 ATHSCL HEART DISEASE OF [place] CORONARY 03/14/2019 LIZZ MEZA MD Ot J44.9 CHRONIC OBSTRUCTIVE PULMONARY DISEASE, U 03/14/2019 LIZZ MEZA MD Ot K21.9 GASTRO-ESOPHAGEAL REFLUX DISEASE WITHOUT 03/14/2019 LIZZ MEZA MD Ot Z51.0 ENCOUNTER FOR ANTINEOPLASTIC RADIATION T 03/14/2019 LIZZ MEZA MD Ot Z79.02 GOLD TOOLER (CURRENT) USE OF ANTITHROMBOTI 03/14/2019 LIZZ MEZA MD, Ot Z79.899 OTHER MCC (CURRENT) DRUG THERAPY 03/14/2019 LIZZ MEZA MD, Ot Z87.891 PERSONAL HISTORY OF NICOTINE DEPENDENCE 03/15/2019 LIZZ MEZA MD, Ot C32.1 MALIGNANT NEOPLASM OF SUPRAGLOTTIS 03/15/2019 LIZZ MEZA MD, Ot I10 ESSENTIAL (PRIMARY) HYPERTENSION 03/15/2019 LIZZ MEZA MD, Ot I25.10 ATHSCL HEART DISEASE OF [place] CORONARY 03/15/2019 LIZZ MEZA MD, Ot J44.9 CHRONIC OBSTRUCTIVE PULMONARY DISEASE, U 03/15/2019 LIZZ MEZA MD, Ot K21.9 GASTRO-ESOPHAGEAL REFLUX DISEASE WITHOUT 03/15/2019 LIZZ MEZA MD, Ot Z51.0 ENCOUNTER FOR ANTINEOPLASTIC RADIATION T 03/15/2019 LIZZ MEZA MD, Ot Z79.02 MCC (CURRENT) USE OF ANTITHROMBOTI 03/15/2019 LIZZ MEZA MD, Ot Z79.899 OTHER MCC (CURRENT) DRUG THERAPY 03/15/2019 LIZZ MEZA MD, Ot Z87.891 PERSONAL HISTORY OF NICOTINE DEPENDENCE Procedures There is no data. Results Test Result Range [id number] - 12/24/16 09:08 Serum or plasma urea [...] Automated erythrocyte mean corpuscular hemoglobin concentration measurement (mass/volume) 34 g/dL 32-36 Automated erythrocyte distribution width ratio 14.7 % 10.0- 14.5 Automated blood platelet count (count/volume) 219 10*3/uL [...] blood base excess by calculation 3.4 mmol/L -2.5-2.5 Arterial blood oxygen saturation measurement 92 % [...] Automated erythrocyte mean corpuscular hemoglobin concentration measurement (mass/volume) 35 g/dL 32-36 Automated erythrocyte distribution width ratio 14.9 % 10.0- 14.5 Automated blood platelet count (count/volume) 189 10*3/uL [...] Serum or plasma aspartate aminotransferase measurement (enzymatic activity/volume) 26 U/L 5-34 Serum or plasma alanine aminotransferase measurement (enzymatic activity/volume) 33 U/L 0-55 Serum or plasma protein measurement (mass/volume) 8.2 g/dL 6.4-8.2 Serum or plasma albumin measurement (mass/volume) 4.5 g/dL 3.2-4.5 Lipid 1996 panel - 04/26/18 10:36 Serum or plasma triglyceride measurement (mass/volume) 120 mg/dL <150 Serum or plasma cholesterol measurement (mass/volume) 119 mg/dL < 200 Serum or plasma cholesterol in HDL measurement (mass/volume) 29 mg/dL 40-60 Cholesterol in LDL [mass/volume] in serum or plasma by direct assay 71 mg/dL 1-129 Serum or plasma cholesterol in VLDL measurement (mass/volume) 24 mg/dL 5-40 PT panel in platelet poor plasma [...] resistant Staphylococcus aureus (MRSA) screening culture - 04/26/18 10:36 Methicillin resistant Staphylococcus aureus (MRSA) screening [...] in urine Negative NRG Serum or plasma 9-[id number]-5,1-gzdscwpf-0,3-diphenylpyrrolidine (eddp) detection Negative NRG Urine opiates detection Negative NRG Urine phencyclidine (PCP) detection Negative NRG Propoxyphene [mass/volume] in urine Negative NRG Urine salicylates measurement (mass/volume) Negative NRG Urine tetrahydrocannabinol detection by screening method Negative NRG [id number] - 08/25/18 11:02 Serum or plasma urea nitrogen measurement (mass/volume) 22 mg/dL 7-18 Serum or plasma creatinine measurement (mass/volume) 0.91 mg/dL 0.60-1.30 Serum or plasma urea nitrogen/creatinine mass ratio 24 NRG Serum or plasma creatinine measurement with calculation of estimated glomerular filtration rate > NRG Methicillin resistant Staphylococcus aureus (MRSA) screening culture - 09/05/18 14:10 Methicillin resistant Staphylococcus aureus (MRSA) screening [...] Automated erythrocyte mean corpuscular hemoglobin concentration measurement (mass/volume) 34 g/dL 32-36 Automated erythrocyte distribution width ratio 14.1 % 10.0- 14.5 Automated blood platelet count (count/volume) 171 10*3/uL [...] Blood monocytes automated count (number/volume) 1.0 10*3 0.0- 1.0 Automated eosinophil count 0.3 10*3/uL 0.0-0.3 Automated [...] Automated erythrocyte mean corpuscular hemoglobin concentration measurement (mass/volume) 34 g/dL 32-36 Automated erythrocyte distribution width ratio 14.3 % 10.0- 14.5 Automated blood platelet count (count/volume) 202 10*3/uL [...] Blood monocytes automated count (number/volume) 0.3 10*3 0.0- 1.0 Automated eosinophil count 0.0 10*3/uL 0.0-0.3 Automated [...] poor plasma bycoagulation assay 33 s 24-35 Complete blood count (CBC) with automated white blood cell (WBC) differential - 01/06/19 17:35 Blood leukocytes automated count (number/volume) 6.4 10*3/uL 4.3-11.0 Blood erythrocytes automated count (number/volume) 3.51 10*6/uL 4.35-5.85 Venous blood hemoglobin measurement (mass/volume) 10.6 g/dL 13.3-17.7 Blood hematocrit (volume fraction) 34 % 40-54 Automated erythrocyte mean corpuscular volume 97 [foz_us] 80-99 Automated erythrocyte mean corpuscular hemoglobin (mass per erythrocyte) 30 pg 25-34 Automated erythrocyte mean corpuscular hemoglobin concentration measurement (mass/volume) 31 g/dL 32-36 Automated erythrocyte distribution width ratio 14.6 % 10.0- 14.5 Automated blood platelet count (count/volume) 213 10*3/uL 130-400 Automated blood platelet mean volume measurement 10.5 [foz_us] 7.4-10.4 Automated blood neutrophils/100 leukocytes 80 % 42-75 Automated blood lymphocytes/100 leukocytes 8 % 12-44 Blood monocytes/100 leukocytes 9 % 0-12 Automated blood eosinophils/100 leukocytes 3 % 0-10 Automated blood basophils/100 leukocytes 0 % 0-10 Blood neutrophils automated count (number/volume) 5.1 10*3 1.8-7.8 Blood lymphocytes automated count (number/volume) 0.5 10*3 1.0-4.0 Blood monocytes automated count (number/volume) 0.6 10*3 0.0- 1.0 Automated eosinophil count 0.2 10*3/uL 0.0-0.3 Automated blood basophil count (count/volume) 0.0 10*3/uL 0.0-0.1 Fibrin D-dimer FEU measurement in platelet poor plasma (mass/volume) - 01/06/19 17:35 Fibrin D-dimer FEU measurement in platelet poor plasma (mass/volume) 1.35 ug/mL 0.00-0.49 Comprehensive metabolic panel - 01/06/19 17:35 Serum or plasma sodium measurement (moles/volume) 136 mmol/L 135-145 Serum or plasma potassium measurement (moles/volume) 3.9 mmol/L 3.6-5.0 Serum or plasma chloride measurement (moles/volume) 103 mmol/L 98-107 Carbon dioxide 23 mmol/L 21-32 Serum or plasma anion gap determination (moles/volume) 10 mmol/L 5-14 Serum or plasma urea nitrogen measurement (mass/volume) 33 mg/dL 7-18 Serum or plasma creatinine measurement (mass/volume) 0.95 mg/dL 0.60-1.30 Serum or plasma urea nitrogen/creatinine mass ratio 35 NRG Serum or plasma creatinine measurement with calculation of estimated glomerular filtration rate > NRG Serum or plasma glucose measurement (mass/volume) 109 mg/dL 70-105 Serum or plasma calcium measurement (mass/volume) 8.7 mg/dL 8.5-10.1 Serum or plasma total bilirubin measurement (mass/volume) 0.3 mg/dL 0.1-1.0 Serum or plasma alkaline phosphatase measurement (enzymatic activity/volume) 103 U/L 40-136 Serum or plasma aspartate aminotransferase measurement (enzymatic activity/volume) 23 U/L 5-34 Serum or plasma alanine aminotransferase measurement (enzymatic activity/volume) 19 U/L 0-55 Serum or plasma protein measurement (mass/volume) 7.4 g/dL 6.4-8.2 Serum or plasma albumin measurement (mass/volume) 3.9 g/dL 3.2-4.5 CALCIUM CORRECTED 8.8 mg/dL 8.5-10.1 Magnesium - 01/06/19 17:35 Magnesium 1.9 mg/dL 1.8-2.4 Serum or plasma lithium measurement (moles/volume) - 01/06/19 17:35 BNP level 200.8 pg/mL <100.0 Bacterial blood culture - 01/06/19 17:35 Bacterial blood culture NG NRG Encounters ACCT No. Visit Date/Time Discharge Status Pt. Type Provider Facility Loc./Unit Complaint [id number] 03/15/2019 00:35:00 03/15/2019 23:59:59 CLS Preadmit LIZZ MEZA MD [facility] ONC [id number] 12/16/2018 14:11:00 03/14/2019 00:01:00 DIS Outpatient LIZZ MEZA MD [facility] ONC [id number] 01/06/2019 16:43:00 01/06/2019 20:49:00 DIS Outpatient MERYL CLIFFORD [facility] ER COUGH,SOB,Hx COPD [id number] 12/13/2018 14:03:00 12/13/2018 00:01:00 DIS Outpatient LIZZ MEZA MD [facility] ONC [id number] 10/05/2018 18:24:00 10/05/2018 22:40:00 DIS Outpatient ELVA GALAN DO [facility] ER MOUTH BLEEDING;COPD [id number] 09/20/2018 11:03:00 09/20/2018 23:59:59 CLS Outpatient MINNIE BELL MD [facility] RAD EPIGLOTTIC LESION [id number] 09/09/2018 07:35:00 09/09/2018 11:25:00 DIS Outpatient MINNIE BELL MD [facility] SDC EPIGLOTIC LESION [id number] 09/05/2018 13:19:00 09/05/2018 14:25:00 DIS Outpatient MINNIE BELL MD [facility] PREOP EPIGLOTIC LESION [id number] 08/25/2018 10:57:00 08/25/2018 23:59:59 CLS Outpatient MINNIE BELL MD [facility] RAD LARYNGEAL ULCER [id number] 08/17/2018 14:33:00 08/17/2018 23:59:59 CLS Outpatient SURINDER PATTON APRN [facility] LAB Z79.891 [id number] 06/06/2018 13:00:00 06/06/2018 23:59:59 CLS Preadmit JOSE CARLOS KENDALL MD, FACC, FACP CCDS [facility] PULM COPD [id number] 03/07/2018 14:25:00 06/05/2018 00:01:00 DIS Outpatient JOSE CARLOS KENDALL MD, FACC, FACP CCDS [facility] PULM COPD [id number] 04/26/2018 10:10:00 04/26/2018 23:59:59 CLS Outpatient COLT MARCOS [facility] CATH CHEST DISCOMFORT [id number] 01/17/2018 14:45:00 01/17/2018 23:59:59 CLS Outpatient ROBERT ALCARAZ MD [facility] RAD COPD,COUGH,HYPOXIA [id number] 12/31/2017 11:45:00 12/31/2017 23:59:59 CLS Preadmit CECE PHOENIX INSTRUCTOR OF EDUCATION [facility] RAD J43.8 COPD [id number] 12/27/2017 16:10:00 12/27/2017 23:59:59 CLS Outpatient VIJAYA PHOENIXINE Molly INSTRUCTOR OF EDUCATION [facility] LAB J43.8 [id number] 12/27/2017 15:45:00 12/27/2017 23:59:59 CLS Preadmit CECE PHOENIX INSTRUCTOR OF EDUCATION [facility] RT J43.8 COPD [id number] 12/21/2017 12:07:00 12/21/2017 23:59:59 CLS Outpatient ENOCH CARL FACC, ALI FACP CCDS [facility] CARD SOB,CAD [id number] 12/16/2017 13:32:00 12/16/2017 23:59:59 CLS Outpatient ENOCH CARL FACC ALI FACP CCDS [facility] CARD SOB,CAD [id number] 12/07/2017 14:34:00 12/07/2017 23:59:59 CLS Outpatient ROBERT ALCARAZ MD [facility] RAD COPD,CHF [id number] 03/16/2017 09:49:00 03/16/2017 16:30:00 DIS Outpatient WHIT MARCIAL DO [facility] RAD BACK PAIN [id number] 02/10/2017 09:59:00 02/10/2017 23:59:59 CLS Outpatient ENOCH CARL FACC ALI FACP CCDS [facility] RAD CAD,HTN,HLP,ISCHEMIC CARDIOMYOPATHY [id number] 02/05/2017 13:45:00 02/05/2017 23:59:59 CLS Outpatient TIMOTEO CHAPMAN MD [facility] RAD LOW BACK PAIN [id number] 01/01/2017 08:32:00 01/01/2017 09:41:00 DIS Outpatient TIMOTEO CHAPMAN MD [facility] CARD DISC DISORDER,SACOROCOCCYGEAL DISORDER [id number] 12/24/2016 08:50:00 12/24/2016 23:59:59 CLS Outpatient SURINDER PATTON APRN [facility] RAD ABNORMAL CHEST XRAY [id number] 12/22/2016 08:59:00 12/22/2016 23:59:59 CLS Outpatient SURINDER PATTON INSTRUCTOR OF EDUCATION [facility] RAD SOB [id number] 12/21/2016 08:20:00 12/21/2016 16:30:00 DIS Outpatient CARMELO DAVIS DO [facility] SLEEP COPD,CAD,FATIGUE [id number] 10/29/2016 07:47:00 10/29/2016 23:59:59 CLS Outpatient ENOCH CARL FACC, ALI FACP CCDS [facility] CARD CAD,VIJI [id number] 10/27/2016 15:00:00 10/27/2016 23:59:59 CLS Outpatient ENOCH CARL FACC, ALI FACP CCDS [facility] CARD SOB,CAD [id number] 10/21/2016 10:59:00 10/21/2016 23:59:59 CLS Outpatient ROBERT ALCARAZ MD [facility] RAD DYSPNEA [id number] 08/20/2015 07:20:00 08/21/2015 09:50:00 DIS Outpatient ENOCH CARL FACC, ALI FACP CCDS [facility] CATH [id number] 08/12/2015 12:32:00 08/12/2015 13:57:00 DIS Outpatient TIMOTEO CHAPMAN MD [facility] CARD [id number] 08/07/2015 13:02:00 08/07/2015 23:59:59 CLS Outpatient ROBERT ALCARAZ MD [facility] RT [id number] 05/09/2014 15:46:00 05/09/2014 23:59:59 CLS Outpatient ENOCH CARL FACC, ALI FACP CCDS [facility] LAB [id number] 10/16/2016 06:49:00 Document Registration [id number] 01/23/2015 10:03:00 Document Registration [id number] 10/14/2012 02:00:00 Document Registration [id number] 05/06/2012 15:54:00 Document Registration [id number] 05/05/2012 17:07:00 Document Registration [id number] 02/09/2012 05:40:00 Document Registration [id number] 02/08/2012 10:04:00 Document Registration
[2019-06-06] MEDS ORDERED: RT-ALBUTEROL/IPRATROPIUM 3 ML (DUONEB) VIAL INH ONE (11:00)
[2019-06-06 11:11] LABS: BASOPHILS % (AUTO) 0 % (0-10); EOSINOPHILS # (AUTO) 0.2 10^3/uL (0.0-0.3); EOSINOPHILS % (AUTO) 3 % (0-10); HEMATOCRIT 27 % (40-54); HEMOGLOBIN 7.8 G/DL (13.3-17.7); LYMPHOCYTES # (AUTO) 0.5 X 10^3 (1.0-4.0); LYMPHOCYTES % (AUTO) 9 % (12-44); MEAN CORPUSCULAR HEMOGLOBIN 25 PG (25-34); MEAN CORPUSCULAR HGB CONC 29 G/DL (32-36); MEAN CORPUSCULAR VOLUME 85 FL (80-99); MEAN PLATELET VOLUME 11.7 FL (7.4-10.4); MONOCYTES # (AUTO) 0.6 X 10^3 (0.0-1.0); MONOCYTES % (AUTO) 10 % (0-12); NEUTROPHILS # (AUTO) 4.6 X 10^3 (1.8-7.8); NEUTROPHILS % (AUTO) 78 % (42-75); PLATELET COUNT 217 10^3/uL (130-400); RED CELL DISTRIBUTION WIDTH 20.3 % (10.0-14.5); WHITE BLOOD COUNT 5.9 10^3/uL (4.3-11.0)
[2019-06-06 11:23] LABS: ABG BASE EXCESS 4.3 MMOL/L (-2.5-2.5); ABG OXYGEN SATURATION 64 % (94-100); ABG PCO2 48 MMHG (35-45); ABG PH 7.39 (7.37-7.43); ABG TCO2 30.3 MMOL/L (21.0-31.0)
[2019-06-06 11:26] LABS: ABG PO2 39 MMHG (79-93); ALLENS TEST YES-POS; INSPIRED O2 40%; PATIENT TEMP 99.1; VENTILATOR NO
[2019-06-06 11:31] LABS: ALANINE AMINOTRANSFERASE 18 U/L (0-55); ALBUMIN 3.6 GM/DL (3.2-4.5); ALKALINE PHOSPHATASE 145 U/L (40-136); BILIRUBIN,TOTAL 0.5 MG/DL (0.1-1.0); BUN/CREATININE RATIO 26; CALCIUM 8.5 MG/DL (8.5-10.1); CARBON DIOXIDE 28 MMOL/L (21-32); CHLORIDE 102 MMOL/L (98-107); CREATININE SERUM 1.01 MG/DL (0.60-1.30); GFR ESTIMATED > 60; GLUCOSE 109 MG/DL (70-105); POTASSIUM 4.2 MMOL/L (3.6-5.0); SODIUM 141 MMOL/L (135-145); TOTAL PROTEIN 7.1 GM/DL (6.4-8.2)
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
[2019-06-06] MEDS ORDERED: FUROSEMIDE 40 MG/4 ML INJ (LASIX) IV STA (12:07)
[2019-06-06] MEDS ORDERED: CATHETER FLUSH 10 ML SYR IV PRN (13:30)
--- NOTE | 2019-06-06 14:15 | NUR ---
Pt is Sabianist and just got here. [employer]cher Machine will check daily for Communion.
--- NOTE | 2019-06-06 14:25 | Consultation-Cardiology ---
HPI-Cardiology Cardiology Consultation: Date of Consultation 06/06/19 Time Seen by a Provider: 14:00 Date of Admission 06-06-19 Attending Physician Alex Goel MD Admitting Physician Robert Lopez MD Consulting Physician COLT MARIA HPI: Chief Complaint: Progressive exertional dyspnea Mr. Hightower is a 63 year old male admitted to ICU 3 from the ED. He reports increasing dyspnea over the course of the last week. He also reports increasing bilat LE swelling over the last week. 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 He states yesterday he did go ahead and take his lasix because the swelling was up into his thighs. This has improved, but the SOB has progressively gotten worse. He denies any c/o CP or palpitations. He denies any syncope or near syncope. He denies any n/v/d. He does report he has been having dark, tarry BM's. No hematuria. He reports a frequent lose cough which he feels is d/t sinus drainage. He continues to smoke cigs. Review of Systems-Cardiology Review of Systems Constitutional: No chills, No fever Eyes: No tunnel vision Ears/Nose/Throat: No epistaxis, No recent hearing loss Respiratory: As described under HPI Cardiovascular: As described under HPI Gastrointestinal: No constipation, No diarrhea, No nausea; stool coloration changes Genitourinary: No dysuria, No hematuria Musculoskeletal: back pain (chronic) Skin: No rash, No ulcerations Psychiatric/Neurological: No anxiety, No depression, No seizure, No focal weakness, No syncope Hematologic: No bleeding abnormalities All Other Systems Reviewed Negative Unless Noted: Yes PRU-Ukhuyf-Stosga Hx Patient Social History Alcohol Use: Denies Use Recreational Drug Use: No Smoking Status: Current Everyday Smoker Type Used: Cigarettes Recent Foreign Travel: No Recent Infectious Disease Expo: No Hospitalization with Isolation: Denies Physical Abuse Screen: No Sexual Abuse: No Immunizations Up To Date Tetanus Booster (TDap): Unknown Past Medical History PMH As described under Assessment. Allergies and Home Medications Allergies Coded Allergies: quinine (Verified Allergy, Unknown, 06/06/19) Home Medications Aspirin 81 Mg Tablet.dr, 81 MG PO DAILY, (Reported) Atorvastatin Calcium 80 Mg Tablet, 80 MG PO HS, (Reported) LAST FILLED #90 02-23-19 Carvedilol 25 Mg Tablet, 25 MG PO BID, (Reported) LAST FILLED #180 02-23-19 Clopidogrel Bisulfate 75 Mg Tablet, 75 MG PO DAILY, (Reported) LAST FILLED #90 01-07-19 Furosemide 80 Mg Tablet, 80 MG PO BID PRN for SWELLING, (Reported) LAST FILLED #60 02-02-19 Lisinopril 40 Mg Tablet, 40 MG PO DAILY, (Reported) LAST FILLED #90 01-07-19 Montelukast Sodium 10 Mg Tablet, 10 MG PO 1900, (Reported) Oxycodone HCl/Acetaminophen 1 Each Tablet, 1 TAB PO Q6H PRN for PAIN-MODERATE, (Reported) Potassium Chloride 20 Meq Tab.er.prt, 20 MEQ PO BID PRN for WHEN TAKING FUROSEMIDE, (Reported) Tramadol HCl 50 Mg Tablet, 50 MG PO TID PRN for PAIN-MODERATE, (Reported) Physical Exam-Cardiology Physical Exam Vital Signs/I&O 06/07/19 06/07/19 06/08/19 06/08/19 20:32 22:48 00:00 02:42 Temp 98.2 97.4 Pulse 77 68 Resp 22 14 B/P (MAP) 115/52 (73) 94/50 (65) Pulse Ox 98 90 98 92 O2 Delivery Vapotherm Vapotherm Vapotherm Vapotherm O2 Flow Rate 70.00 25.00 70.00 25.00 25.00 25.00 FiO2 70 70 06/08/19 06/08/19 04:00 06:13 Temp 97.7 Pulse 54 Resp 18 B/P (MAP) 112/54 (73) Pulse Ox 100 97 O2 Delivery Vapotherm Vapotherm O2 Flow Rate 70.00 25.00 25.00 FiO2 70 06/08/19 00:00 Intake Total 1380 ml Output Total 3350 ml Balance -1970 ml Capillary Refill : Less Than 3 Seconds Constitutional: AAO x 3, well-developed, well-nourished HEENT: PERRL, hearing is well preserved, oral hygience is good Neck: No carotid bruit; carotid pulses are 2 + bilaterally Respiratory: No accessory muscle use, No respiratory distress; chest expansion is symmetric, chest is bilaterally symmetric, rhonchi (scattered), other (coarse lung sounds) Cardiovascular: regular rate-rhythm, S1 and S2, systolic murmur Gastrointestinal: No tender; round, audible bowel sounds Extremities: significant edema (bilat LE swelling 3(+)) Neurologic/Psychiatric: grossly intact, power is 5/5 both on sides Skin: No rash, No ulcerations Data Review Labs Laboratory Tests 06/07/19 12:04: Lab Scanned Report Transfusion Reaction Form 06/08/19 05:25: White Blood Count 4.7, Red Blood Count 3.53L, Hemoglobin 8.9L, Hematocrit 30L, Mean Corpuscular Volume 86, Mean Corpuscular Hemoglobin 25, Mean Corpuscular Hemoglobin Concent 30L, Red Cell Distribution Width 19.4H, Platelet Count 216, Mean Platelet Volume 11.6H, Neutrophils (%) (Auto) 63, Lymphocytes (%) (Auto) 15, Monocytes (%) (Auto) 15H, Eosinophils (%) (Auto) 7, Basophils (%) (Auto) 0, Neutrophils # (Auto) 3.0, Lymphocytes # (Auto) 0.7L, Monocytes # (Auto) 0.7, Eosinophils # (Auto) 0.3, Basophils # (Auto) 0.0, Sodium Level 135, Potassium Level 4.2, Chloride Level 92L, Carbon Dioxide Level 34H, Anion Gap 9, Blood Urea Nitrogen 23H, Creatinine 0.94, Estimat Glomerular Filtration Rate > 60, BUN/Creatinine Ratio 24, Glucose Level 93, Calcium Level 8.8, Corrected Calcium 9.2, Total Bilirubin 0.6, Aspartate Amino Transf (AST/SGOT) 27, Alanine Aminotransferase (ALT/SGPT) 18, Alkaline Phosphatase 137H, Total Protein 7.1, Albumin 3.5 Radiology NAME: WHIT HIGHTOWER [facility] REC#: [id number] PT STATUS: ADM IN : 1955 PHYSICIAN: ARI PULIDO APRN ADMIT DATE: 06/06/19/ICU Signed Date of Exam: 06/06/19 CHEST 1 VIEW, AP/PA ONLY EXAMINATION: Chest, 1 view. HISTORY: Edema. COMPARISON: 01/06/2019. FINDINGS: A subclavian defibrillator is present. There is mild pulmonary edema. The heart is enlarged but unchanged in size. No pneumothorax. There is a small right pleural effusion. IMPRESSION: Mild pulmonary edema. Dictated by: Dictated on workstation # [id number] Dict: 06/06/19 1134 Trans: 06/06/19 1328 Interpreted by: ROBERT PATTON MD Electronically signed by: ROBERT PATTON MD 06/06/19 1328 ECG Impression ECG Comment SR with LBBB A/P-Cardiology Assessment/Admission Diagnosis Multifactorial dyspnea r/t acute on chronic systolic CHF, acute exacerbation of COPD, obesity-hypoventilation syndrome, anemia of undetermined etiology Acute on chronic systolic CHF due to ischemic cardiomyopathy Chronic obstructive pulmonary disease due to tobaccoism, followed by Dr Steele. Has intermittent hypoxia for which he is on prn oxygen Obesity with obesity-hypoventilation syndrome Ischemic cardiomyopathy Anemia of undetermined etiology - suspected GI bleed Sleep studies of 12/21/16: nocturnal hypoxemia, primary snoring without VIJI, paroxysmal narrow complex tachycardia S/p removal of L-sided ICD and associated leads for device pocket infection in Dec 2013. He now has new leads and a new R-sided device that was placed in Dec 31, functioning normally per interrogation of May 31, 2019 H/o intermittent hypotension, currently stable Coronary artery disease artery disease. Last cath was on 04/26/18. It showed severe prox dixease of LA that was stented with Alp Xience 4x15. In the mid LAD there were patent overlapping stents (Feather Renovator [id number] Feather Renovator 3x24) and the e1st OM of LCX had a patent stent (Promus James 3.5x12). The RCA was dominant with mild plaques. LVEF was 40% there was anteroapical hypokinesis and mild elev of LVEDP MPI of 12/21/17: anteroapical infarction with minimal raheem-infarct ischemia; anteroapical akinesis/dyskinesis and LVEF 39%, significant cardiomegaly Echo of 12/16/17: LVEF 45%, grade I diastolic dysfunction Abnormal ECG on 12/08/16: NSR with LBBB Hypertension. Hyperlipidemia, being treated with statin therapy. Glucose intolerance. Obesity with a body mass index of 40. Degenerative joint disease. History of hemorrhoids. Chronic bilateral lower extremity edema Chronic back pain for which he has been taking hydrocodone. CT spine of 02/05/17 (Dr Bolivar) has shown lumbar spondylosis and foraminal narrowing Mild AAA, measuring 3.6 cm nahum, along with mod stenosis of the R common iliac artery, on CT angio of 02/10/17 Chronic tobacco use - cessation advised It shows a fatty liver on CT scan of September 2012 Mild bilat carotid art disease on u/s of February 2013 on u/s of 03/30/17 (R ICA not well-visualized on carotid u/s of 03/30/17) Laryngeal CA diagnosed (Jul 2018) treated with radiation per Dr. Eubanks and followed by Dr. Muñoz S/p all teeth removal in Sep 2018 Discussion and Recomendations Complex management Multifactorial dyspnea as noted above Acute on chronic systolic CHF - treat with diuretics Echocardiogram Monitor lab closely Acute exacerbation of COPD - management per medical services Anemia d/t suspected GI bleed - transfuse and consult surgical services - occult stools Continue home medications Advise continuation of anti-platelet tx d/t known h/o CAD Further recs will be based on his hospital course We would like to thank medical services for this consult Immediate cessation of tobacco use Clinical Quality Measures DVT/VTE Risk/Contraindication: Risk Factor Score Per Nursin RFS Level Per Nursing on Admit: 4+=Very High COLT MARCOS Jun 06, 2019 14:25
[2019-06-06] MEDS ORDERED: FUROSEMIDE 40 MG/4 ML INJ (LASIX) IVP NR (14:30)
[2019-06-06] MEDS ORDERED: ASPIRIN 81 MG CHEW (CHILDREN'S ASA) PO NR (14:30)
[2019-06-06] MEDS ORDERED: CLOPIDOGREL 75 MG (PLAVIX) TABLET PO NR (14:30)
[2019-06-06] MEDS ORDERED: OXYC-465 PO (14:34)
[2019-06-06] MEDS ORDERED: POTA20TA8 PO (14:34)
[2019-06-06] MEDS ORDERED: TRAM50TA2 PO (14:34)
[2019-06-06] MEDS ORDERED: NS IV 500 ML 500 ML IV SCH (14:45)
--- NOTE | 2019-06-06 14:49 | NUR ---
SPOKE WITH THE PATIENT ABOUT HIS MEDICATIONS. WE WENT OVER THE EXT MED HX AND HE VERIFIED HOW HE TAKES THEM. HE IS PAST DUE FOR REFILLS ON SEVERAL MEDS, I NOTED THE DATES ON THE MED REC. IN ADDITION TO WHAT IS SHOWN ON THE EXT MED HX AZIZA STANLEY FILLED: 02-02-19 LASIX 80MG BID #60 (STATES HE HAD BEEN TAKING PRN) 01-07-19 LISINOPRIL 40MG DAILY #90 01-07-19 PLAVIX 75MG DAILY #90 ALSO PAST DUE: 02-23-19 COREG 25MG BID #180 02-23-19 LIPITOR 80MG #90 HE TAKES ASPIRIN 81MG DAILY OTC.
[2019-06-06] MEDS ORDERED: RT-ALBUTEROL/IPRATROPIUM 3 ML (DUONEB) VIAL INH PRN (17:00)
[2019-06-06] MEDS: oxyCODONE/APAP 10/325MG (PERCOCET 10) TABLET PO PRN (17:29)
[2019-06-06] MEDS: FUROSEMIDE 40 MG/4 ML INJ (LASIX) IV SCH (17:29)
[2019-06-06] MEDS: KCL 20 MEQ TAB (K-DUR) PO PRN (17:33)
[2019-06-06] MEDS: CATHETER FLUSH 10 ML SYR IV SCH ×2 (17:33→21:40)
--- NOTE | 2019-06-06 18:33 | Consultation-Cardiology ---
HPI-Cardiology Cardiology Consultation: Date of Consultation 06/06/19 Time Seen by a Provider: 16:30 Date of Admission Attending Physician Alex Goel MD Admitting Physician Jean-Claude Lopez MD Consulting Physician JOSE CARLOS KENDALL MD, MA, FACP, FACC, FSCAI, CCDS HPI: Chief Complaint: CC Progressive exertional shortness of breath HPI Mr. Hightower is a 63 year old male admitted to ICU 3 from the ED. He reports increasing dyspnea over the course of the last week. He also reports increasing bilat LE swelling over the last week. 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 He states yesterday he did go ahead and take his lasix because the swelling was up into his thighs. This has improved, but the SOB has progressively gotten worse. He denies any c/o CP or palpitations. He denies any syncope or near syncope. He denies any n/v/d. He does report he has been having dark, tarry BM's. No hematuria. He reports a frequent lose cough which he feels is d/t sinus drainage. He continues to smoke cigs. Review of Systems-Cardiology Review of Systems Constitutional: No chills, No fever Eyes: No tunnel vision Ears/Nose/Throat: No epistaxis, No recent hearing loss Respiratory: As described under HPI Cardiovascular: As described under HPI Gastrointestinal: No constipation, No diarrhea, No nausea; stool coloration changes Genitourinary: No dysuria, No hematuria Musculoskeletal: back pain (chronic) Skin: No rash, No ulcerations Psychiatric/Neurological: No anxiety, No depression, No seizure, No focal weakness, No syncope Hematologic: No bleeding abnormalities All Other Systems Reviewed Negative Unless Noted: Yes [id number] Hx Patient Social History Alcohol Use: Denies Use Recreational Drug Use: No Smoking Status: Current Everyday Smoker Type Used: Cigarettes Recent Foreign Travel: No Recent Infectious Disease Expo: No Hospitalization with Isolation: Denies Physical Abuse Screen: No Sexual Abuse: No Immunizations Up To Date Tetanus Booster (TDap): Unknown Past Medical History PMH As described under Assessment. Family Medical History Family Medical History: He does not report fam h/o early CAD or SCD Allergies and Home Medications Allergies Coded Allergies: quinine (Verified Allergy, Unknown, 06/06/19) Home Medications Aspirin 81 Mg Tablet.dr, 81 MG PO DAILY, (Reported) Atorvastatin Calcium 80 Mg Tablet, 80 MG PO HS, (Reported) LAST FILLED #90 02-23-19 Carvedilol 25 Mg Tablet, 25 MG PO BID, (Reported) LAST FILLED #180 02-23-19 Clopidogrel Bisulfate 75 Mg Tablet, 75 MG PO DAILY, (Reported) LAST FILLED #90 01-07-19 Furosemide 80 Mg Tablet, 80 MG PO BID PRN for SWELLING, (Reported) LAST FILLED #60 02-02-19 Lisinopril 40 Mg Tablet, 40 MG PO DAILY, (Reported) LAST FILLED #90 01-07-19 Montelukast Sodium 10 Mg Tablet, 10 MG PO 1900, (Reported) Oxycodone HCl/Acetaminophen 1 Each Tablet, 1 TAB PO Q6H PRN for PAIN-MODERATE, (Reported) Potassium Chloride 20 Meq Tab.er.prt, 20 MEQ PO BID PRN for WHEN TAKING FUROSEMIDE, (Reported) Tramadol HCl 50 Mg Tablet, 50 MG PO TID PRN for PAIN-MODERATE, (Reported) Patient Home Medication List Home Medication List Reviewed: Yes Physical Exam-Cardiology Physical Exam Vital Signs/I&O 06/06/19 06/06/19 06/06/19 06/06/19 10:38 10:38 11:31 13:00 Temp 99.3 Pulse 75 59 Resp 25 20 B/P (MAP) 124/66 (85) 119/74 (89) Pulse Ox 78 79 95 94 O2 Delivery Nasal Cannula Nasal Cannula Vapotherm Vapotherm O2 Flow Rate 6.00 6.00 30.00 FiO2 40 06/06/19 06/06/19 06/06/19 06/06/19 13:05 13:10 16:00 16:09 Temp 97.8 97.6 97.6 Pulse 67 71 71 Resp 25 16 22 B/P (MAP) 132/72 118/66 (83) 118/66 Pulse Ox 95 96 96 O2 Delivery Vapotherm Vapotherm Vapotherm Vapotherm O2 Flow Rate 30.00 25.00 50.00 30.00 FiO2 50 50 06/06/19 06/06/19 06/06/19 16:27 16:35 16:35 Temp 97.1 Pulse 67 77 Resp 20 B/P (MAP) 98/58 Pulse Ox 96 78 78 O2 Delivery Vapotherm Vapotherm O2 Flow Rate 50.00 25.00 FiO2 40 Capillary Refill : Less Than 3 Seconds Constitutional: AAO x 3, well-developed, well-nourished HEENT: PERRL, hearing is well preserved, oral hygience is good Neck: No carotid bruit; carotid pulses are 2 + bilaterally Respiratory: No accessory muscle use, No respiratory distress; chest expansion is symmetric, chest is bilaterally symmetric, rhonchi (scattered), other (coarse lung sounds) Cardiovascular: regular rate-rhythm, S1 and S2, systolic murmur Gastrointestinal: No tender; round, audible bowel sounds Extremities: significant edema (bilat LE swelling 3(+)) Neurologic/Psychiatric: grossly intact, power is 5/5 both on sides Skin: No rash, No ulcerations Data Review Labs Laboratory Tests 06/06/19 11:00: White Blood Count 5.9, Red Blood Count 3.19L, Hemoglobin 7.8L, Hematocrit 27L, Mean Corpuscular Volume 85, Mean Corpuscular Hemoglobin 25, Mean Corpuscular Hemoglobin Concent 29L, Red Cell Distribution Width 20.3H, Platelet Count 217, Mean Platelet Volume 11.7H, Neutrophils (%) (Auto) 78H, Lymphocytes (%) (Auto) 9L, Monocytes (%) (Auto) 10, Eosinophils (%) (Auto) 3, Basophils (%) (Auto) 0, Neutrophils # (Auto) 4.6, Lymphocytes # (Auto) 0.5L, Monocytes # (Auto) 0.6, Eosinophils # (Auto) 0.2, Basophils # (Auto) 0.0, Sodium Level 141, Potassium Level 4.2, Chloride Level 102, Carbon Dioxide Level 28, Anion Gap 11, Blood Urea Nitrogen 26H, Creatinine 1.01, Estimat Glomerular Filtration Rate > 60, BUN/Creatinine Ratio 26, Glucose Level 109H, Calcium Level 8.5, Corrected Calc ium 8.8, Magnesium Level 2.0, Total Bilirubin 0.5, Aspartate Amino Transf (AST/SGOT) 20, Alanine Aminotransferase (ALT/SGPT) 18, Alkaline Phosphatase 145H , Troponin I 0.034H, B-Type Natriuretic Peptide 1010.0H, Total Protein 7.1, Albumin 3.6 06/06/19 11:15: Blood Gas Puncture Site RT RADIAL, Blood Gas Patient Temperature 99.1, Arterial Blood pH 7.39, Arterial Blood Partial Pressure CO2 48H, Arterial Blood Partial Pressure O2 39*L, Arterial Blood HCO3 29H, Arterial Blood Total CO2 30.3, Arterial Blood Oxygen Saturation 64L, Arterial Blood Base Excess 4.3H, Collin Test YES-POS, Blood Gas Ventilator Setting NO, Blood Gas Inspired Oxygen 40% A/P-Cardiology Assessment/Admission Diagnosis Multifactorial dyspnea: acute on chronic systolic CHF, acute exacerbation of COPD, obesity-hypoventilation syndrome, anemia of undetermined etiology Acute on chronic systolic CHF due to ischemic cardiomyopathy Chronic obstructive pulmonary disease due to tobaccoism, followed by Dr Steele. Has intermittent hypoxia for which he is on prn oxygen Obesity with obesity-hypoventilation syndrome Anemia of undetermined etiology - suspected GI bleed S/p removal of L-sided ICD and associated leads for device pocket infection in Dec 2013. He now has new leads and a new R-sided device that was placed in Dec 2013, functioning normally per interrogation of May 31, 2019 Coronary artery disease artery disease. Last cath was on 04/26/18. It showed severe prox disease of LA that was stented with Alp Xience 4x15. In the mid LAD there were patent overlapping stents (Inspector And Mender [id number] Inspector And Mender 3x24) and the 1st OM of LCX had a patent stent (Promus James 3.5x12). The RCA was dominant with mild plaques. LVEF was 40% there was anteroapical hypokinesis and mild elev of LVEDP Echo of 06/06/19: LVEF 35-40%, mod dilatation of LA, RVSP 40 mmHg Chronic LBBB pattern H/o labile bp Hyperlipidemia, being treated with statin therapy. Glucose intolerance. Chronic bilateral lower extremity edema Chronic back pain for which he has been taking hydrocodone. CT spine of 02/05/17 (Dr Bolivar) has shown lumbar spondylosis and foraminal narrowing Mild AAA, measuring 3.6 cm nahum, along with mod stenosis of the R common iliac artery, on CT angio of 02/10/17 Chronic tobacco use - cessation advised Mild bilat carotid art disease on u/s of February 2013 on u/s of 03/30/17 (R ICA not well-visualized on carotid u/s of 03/30/17) Laryngeal CA diagnosed (Jul 2018) treated with radiation per Dr. Eubanks and followed by Dr. Muñoz Discussion and Recomendations * Complex management due to multiple comorbidities * Treat with diuretics * Transfuse PRBCs * Surgical consult to eval for endoscopy to look for GI blee * Monitor labs * Advised immediate and complete smoking cessation * If EF drops below 35%, consider upgrade of ICD to biV device Clinical Quality Measures DVT/VTE Risk/Contraindication: Risk Factor Score Per Nursin RFS Level Per Nursing on Admit: 4+=Very High JOSE CARLOS KENDALL MD FACP FAC CCD Jun 06, 2019 18:33
[2019-06-06] MEDS: RT-ALBUTEROL/IPRATROPIUM 3 ML (DUONEB) VIAL INH SCH ×2 (19:49→20:50)
[2019-06-06] MEDS ORDERED: NON-FORMULARY MEDICATION 1 EA EA (Carvedilol 25 MG) PO SCH (21:00)
[2019-06-06] MEDS: CARVEDILOL 12.5 MG (COREG) TABLET PO SCH (21:13)
[2019-06-06] MEDS: MONTELUKAST 10 MG (SINGULAIR) TAB PO SCH (21:13)
[2019-06-06] MEDS: ATORVASTATIN 80 MG (LIPITOR) TABLET PO SCH (21:13)
[2019-06-07] VITALS (7 sets, daily range): BP systolic 97–118; BP diastolic 47–62
[2019-06-07] MEDS: RT-ALBUTEROL/IPRATROPIUM 3 ML (DUONEB) VIAL INH SCH ×6 (02:54→22:51)
[2019-06-07 03:55] LABS: BASOPHILS % (AUTO) 0 % (0-10); EOSINOPHILS # (AUTO) 0.3 10^3/uL (0.0-0.3); EOSINOPHILS % (AUTO) 5 % (0-10); HEMATOCRIT 29 % (40-54); HEMOGLOBIN 8.5 G/DL (13.3-17.7); LYMPHOCYTES # (AUTO) 0.8 X 10^3 (1.0-4.0); LYMPHOCYTES % (AUTO) 14 % (12-44); MEAN CORPUSCULAR HEMOGLOBIN 25 PG (25-34); MEAN CORPUSCULAR HGB CONC 30 G/DL (32-36); MEAN CORPUSCULAR VOLUME 85 FL (80-99); MONOCYTES # (AUTO) 0.8 X 10^3 (0.0-1.0); MONOCYTES % (AUTO) 15 % (0-12); NEUTROPHILS # (AUTO) 3.8 X 10^3 (1.8-7.8); NEUTROPHILS % (AUTO) 66 % (42-75); PLATELET COUNT 210 10^3/uL (130-400); RED CELL DISTRIBUTION WIDTH 19.2 % (10.0-14.5); WHITE BLOOD COUNT 5.7 10^3/uL (4.3-11.0)
[2019-06-07 04:21] LABS: ALANINE AMINOTRANSFERASE 19 U/L (0-55); ALBUMIN 3.6 GM/DL (3.2-4.5); ALKALINE PHOSPHATASE 60 U/L (40-136); BILIRUBIN,TOTAL 3.1 MG/DL (0.1-1.0); BUN/CREATININE RATIO 18; CARBON DIOXIDE 18 MMOL/L (21-32); CHLORIDE 101 MMOL/L (98-107); CREATININE SERUM 0.78 MG/DL (0.60-1.30); GFR ESTIMATED > 60; GLUCOSE 93 MG/DL (70-105); SODIUM 134 MMOL/L (135-145); TOTAL PROTEIN 6.3 GM/DL (6.4-8.2)
[2019-06-07 04:26] LABS: CALCIUM 4.2 MG/DL (8.5-10.1); MAGNESIUM 0.7 MG/DL (1.8-2.4); POTASSIUM 7.6 MMOL/L (3.6-5.0)
[2019-06-07 05:05] LABS: BUN/CREATININE RATIO 25; CALCIUM 8.5 MG/DL (8.5-10.1); CARBON DIOXIDE 28 MMOL/L (21-32); CHLORIDE 98 MMOL/L (98-107); CREATININE SERUM 0.96 MG/DL (0.60-1.30); GFR ESTIMATED > 60; GLUCOSE 89 MG/DL (70-105); MAGNESIUM 1.9 MG/DL (1.8-2.4); POTASSIUM 3.9 MMOL/L (3.6-5.0); SODIUM 139 MMOL/L (135-145)
[2019-06-07] MEDS: FUROSEMIDE 40 MG/4 ML INJ (LASIX) IV SCH ×2 (07:05→18:47)
[2019-06-07] MEDS: CATHETER FLUSH 10 ML SYR IV SCH ×3 (07:05→23:05)
[2019-06-07] MEDS: KCL 20 MEQ TAB (K-DUR) PO PRN ×2 (07:06→21:08)
[2019-06-07] MEDS: ASPIRIN 81 MG CHEW (CHILDREN'S ASA) PO SCH (07:56)
[2019-06-07] MEDS: CARVEDILOL 12.5 MG (COREG) TABLET PO SCH ×2 (07:56→20:56)
[2019-06-07] MEDS: CLOPIDOGREL 75 MG (PLAVIX) TABLET PO SCH (07:56)
[2019-06-07] MEDS: lisINopril 40 MG (PRINIVIL) TABLET PO SCH (07:56)
--- NOTE | 2019-06-07 08:45 | NUR ---
PT TRANSFERRED TO ROOM 406 VIA CHAIR ACCOMPANIED BY THIS RN. PT PERSONAL BELONGINGS SENT WITH PT. REPORT GIVEN TO SUJATHA APONTE FOR CONTINUING CARE.
[2019-06-07] MEDS ORDERED: ASPIRIN E.C. 81 MG (ECOTRIN) TAB PO SCH (09:00)
[2019-06-07] MEDS ORDERED: CLOPIDOGREL 75 MG (PLAVIX) TABLET PO SCH (09:00)
--- NOTE | 2019-06-07 10:52 | History & Physical-Hospitalist ---
History of Present Illness HPI/Chief Complaint CC: Dyspnea with AECHF HPI: This is a 63yoWM clinic patient of Dr Lopez who has a h/o CHF and COPD and continues to smoke who presented to the ER with increasing dyspnea and found to have fluid overload and hypoxia requiring admit with Vapotherm to maintain sats. Hgb is 8.5 having some bloody stools in the ER so Dr. Robertson is consulted and he will need an endoscopy once he is stabilized Wants to be off Vapotherm Denies any other significant pain Consulted Dr. Ivette Daniel on CHF management Asked for Miralax so I ordered that Checked meds and labs Source: patient, RN/MD, old records Exam Limitations: no limitations Date Seen 06/07/19 Time Seen by a Provider: 10:00 Attending Physician Alex Goel MD PCP Jean-Claude Lopez MD Referring Physician Date of Admission Jun 06, 2019 at 12:33 Home Medications & Allergies Home Medications Reviewed patient Home Medication Reconciliation performed by pharmacy medication reconciliations medical delivery technician and/or nursing. Patients Allergies have been reviewed. Allergies Allergies Coded Allergies quinine (Verified Allergy, Unknown, 06/06/19) Past Jfqkctv-Jhbcwn-Gnihvi Hx Past Med/Social Hx: Reviewed Nursing Past Med/Soc Hx, Reviewed and Corrections made Patient Social History Marrital Status: single Employed/Student: retired Alcohol Use: Denies Use Recreational Drug Use: No Smoking Status: Current Everyday Smoker Former Smoker, Quit: Sep 02, 2018 Type Used: Cigarettes Physical Abuse Screen: No Sexual Abuse: No Recent Foreign Travel: No Contact w/other who traveled: No Recent Hopitalizations: No Recent Infectious Disease Expo: No Immunizations Up To Date Tetanus Booster (TDap): Unknown Pediatric: No Seasonal Allergies Seasonal Allergies: Yes Past Medical History Surgeries: Cardiac, Coronary Stent, Defibrillator, Orthopedic Respiratory: COPD, Sleep Apnea Currently Using CPAP: Yes Cardiac: Cardiomyopathy, Coronary Artery Disease, Heart Attack, Hypertension Neurological: Neuropathy Reproductive: No Genitourinary: Benign Prostatic Hyperpl Musculoskeletal: Arthritis Did You Recieve Any Treatments: No History of Blood Disorders: No Family History Reviewed Nursing Family Hx Review of Systems Constitutional: see HPI, weakness EENTM: no symptoms reported Respiratory: cough, dyspnea on exertion, orthopnea, short of breath, wheezing Cardiovascular: no symptoms reported Gastrointestinal: loss of appetite, melena Genitourinary: no symptoms reported Musculoskeletal: no symptoms reported Skin: no symptoms reported Psychiatric/Neurological: No Symptoms Reported All Other Systems Reviewed Negative Unless Noted: Yes Physical Exam Physical Exam Vital Signs Vital Signs - First Documented 06/06/19 11:31 FiO2 40 Capillary Refill : Less Than 3 Seconds Height, Weight, BMI Height: 6'0.00" Weight: 289lbs. 0.0oz. 131.044582ot; 39.2 BMI Method:Stated General Appearance: No Apparent Distress, WD/WN, Chronically ill, Obese Eyes: Right Eye Normal Inspection, Right Eye PERRL HEENT: PERRL/EOMI, Normal ENT Inspection, Pharynx Normal, Moist Mucous Membranes Neck: Full Range of Motion, Normal Inspection, Non Tender Respiratory: Chest Non Tender, Accessory Muscle Use, Crackles, Decreased Breath Sounds, Respiratory Distress, Wheezing Cardiovascular: Regular Rate, Rhythm, No Edema, No Gallop, No JVD, No Murmur, Normal Peripheral Pulses Gastrointestinal: Normal Bowel Sounds, No Organomegaly, No Pulsatile Mass, Non Tender, Soft Back: Normal Inspection, No CVA Tenderness, No Vertebral Tenderness Extremity: Normal Capillary Refill, Normal Inspection, Normal Range of Motion, Non Tender, No Calf Tenderness, No Pedal Edema Neurologic/Psychiatric: Alert, Oriented x3, No Motor/Sensory Deficits, Normal Mood/Affect, 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 Assessment/Plan Admission Diagnosis Assessment: Respiratory insufficiency acute AECOPD AECHF Elevated BNP GIB Anemia HLP Plan: Vapotherm María Byers [place] consultation Needs scope after resp status is stable Admission Status: Inpatient Order (span 2 midnights) Reason for Inpatient Admission: Severe resp insufficiency Diagnosis/Problems Diagnosis/Problems (1) Acute on chronic heart failure Status: Acute Qualifiers: Heart failure type: unspecified Qualified Codes: I50.9 - Heart failure, unspecified (2) COPD (chronic obstructive pulmonary disease) Status: Chronic Qualifiers: COPD type: COPD with acute exacerbation Qualified Codes: J44.1 - Chronic obstructive pulmonary disease with (acute) exacerbation (3) Hypoventilation syndrome Status: Chronic (4) Ischemic cardiomyopathy Status: Chronic (5) VIJI (obstructive sleep apnea) Status: Chronic (6) HTN (hypertension) Status: Chronic Qualifiers: Hypertension type: essential hypertension Qualified Codes: I10 - Essential (primary) hypertension (7) Obesity Status: Chronic Qualifiers: Obesity type: due to excess calories Obesity classification: adult class 2 (BMI 35 - 39.9) Serious obesity comorbidity presence: with serious comorbidity Body mass index: BMI 39.0-39.9 Qualified Codes: E66.01 - Morbid (severe) obesity due to excess calories; Z68.39 - Body mass index (bmi) 39.0-39.9, adult (8) CAD (coronary artery disease) Status: Chronic Qualifiers: Coronary Disease-Associated Artery/Lesion type: [place] artery [place] vs. transplanted heart: [place] heart Associated angina: with stable angina Qualified Codes: I25.118 - Atherosclerotic heart disease of [place] coronary artery with other forms of angina pectoris Clinical Quality Measures DVT/VTE Risk/Contraindication: Risk Factor Score Per Nursin RFS Level Per Nursing on Admit: 4+=Very High DEEPA TAYLOR DO Jun 07, 2019 10:52
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
--- NOTE | 2019-06-07 16:32 | NUR ---
provided prayer and Communion.
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
[2019-06-07] MEDS: MONTELUKAST 10 MG (SINGULAIR) TAB PO SCH (18:47)
[2019-06-07] MEDS: POLYETHYLENE GLYCOL 17 GM (MIRALAX) PACK PO SCH (20:56)
[2019-06-07] MEDS: ATORVASTATIN 80 MG (LIPITOR) TABLET PO SCH (20:56)
[2019-06-08] VITALS: BP 94/50
[2019-06-08] MEDS: RT-ALBUTEROL/IPRATROPIUM 3 ML (DUONEB) VIAL INH SCH ×6 (02:44→22:27)
[2019-06-08] MEDS: oxyCODONE/APAP 10/325MG (PERCOCET 10) TABLET PO PRN ×2 (03:17→20:23)
[2019-06-08 04:00] VITALS: BP 112/54
[2019-06-08] MEDS: CATHETER FLUSH 10 ML SYR IV SCH ×3 (06:05→20:30)
[2019-06-08] MEDS: FUROSEMIDE 40 MG/4 ML INJ (LASIX) IV SCH ×2 (06:05→17:45)
[2019-06-08] MEDS: PANTOPRAZOLE 40 MG (PROTONIX) TAB PO SCH (06:05)
[2019-06-08 06:08] LABS: BASOPHILS % (AUTO) 0 % (0-10); EOSINOPHILS # (AUTO) 0.3 10^3/uL (0.0-0.3); EOSINOPHILS % (AUTO) 7 % (0-10); HEMATOCRIT 30 % (40-54); HEMOGLOBIN 8.9 G/DL (13.3-17.7); LYMPHOCYTES # (AUTO) 0.7 X 10^3 (1.0-4.0); LYMPHOCYTES % (AUTO) 15 % (12-44); MEAN CORPUSCULAR HEMOGLOBIN 25 PG (25-34); MEAN CORPUSCULAR HGB CONC 30 G/DL (32-36); MEAN CORPUSCULAR VOLUME 86 FL (80-99); MEAN PLATELET VOLUME 11.6 FL (7.4-10.4); MONOCYTES # (AUTO) 0.7 X 10^3 (0.0-1.0); MONOCYTES % (AUTO) 15 % (0-12); NEUTROPHILS % (AUTO) 63 % (42-75); PLATELET COUNT 216 10^3/uL (130-400); RED CELL DISTRIBUTION WIDTH 19.4 % (10.0-14.5); WHITE BLOOD COUNT 4.7 10^3/uL (4.3-11.0)
[2019-06-08 06:29] LABS: ALANINE AMINOTRANSFERASE 18 U/L (0-55); ALBUMIN 3.5 GM/DL (3.2-4.5); ALKALINE PHOSPHATASE 137 U/L (40-136); BILIRUBIN,TOTAL 0.6 MG/DL (0.1-1.0); BUN/CREATININE RATIO 24; CALCIUM 8.8 MG/DL (8.5-10.1); CARBON DIOXIDE 34 MMOL/L (21-32); CHLORIDE 92 MMOL/L (98-107); CREATININE SERUM 0.94 MG/DL (0.60-1.30); GFR ESTIMATED > 60; GLUCOSE 93 MG/DL (70-105); POTASSIUM 4.2 MMOL/L (3.6-5.0); SODIUM 135 MMOL/L (135-145); TOTAL PROTEIN 7.1 GM/DL (6.4-8.2)
[2019-06-08 08:00] VITALS: BP 110/65
[2019-06-08] MEDS: POLYETHYLENE GLYCOL 17 GM (MIRALAX) PACK PO SCH ×2 (08:31→20:22)
[2019-06-08] MEDS: CARVEDILOL 12.5 MG (COREG) TABLET PO SCH ×2 (08:31→20:22)
[2019-06-08] MEDS: CLOPIDOGREL 75 MG (PLAVIX) TABLET PO SCH (08:31)
[2019-06-08] MEDS: ASPIRIN 81 MG CHEW (CHILDREN'S ASA) PO SCH (08:31)
[2019-06-08] MEDS: lisINopril 40 MG (PRINIVIL) TABLET PO SCH (08:31)
--- NOTE | 2019-06-08 09:03 | Pulmonary Progress Note ---
Subjective Time Seen by a Provider: 09:03 Subjective/Events-last exam PT is still requiring Vapotherm. He is sitting up in chair. NO productive cough. Sepsis Event Evaluation Height, Weight, BMI Height: 6'0.00" Weight: 295lbs. 14.4oz. 134.367980ho; 39.2 BMI Method:Stated Exam Exam Vital Signs Date Time Temp Pulse Resp B/P (MAP) Pulse Ox O2 Delivery O2 Flow Rate FiO2 06/08/19 08:00 98.2 77 18 110/65 (80) 96 Vapotherm 75.00 25.00 06/08/19 06:13 97 Vapotherm 25.00 70 06/08/19 04:00 97.7 54 18 112/54 (73) 100 Vapotherm 70.00 25.00 06/08/19 02:42 92 Vapotherm 25.00 70 06/08/19 00:00 97.4 68 14 94/50 (65) 98 Vapotherm 70.00 25.00 06/07/19 22:48 90 Vapotherm 25.00 70 06/07/19 20:32 98.2 77 22 115/52 (73) 98 Vapotherm 70.00 25.00 06/07/19 20:00 Vapotherm 06/07/19 19:08 93 Vapotherm 25.00 70 06/07/19 16:45 97.9 66 18 113/62 (79) 98 Vapotherm 75.00 25.00 06/07/19 12:31 62 22 110/62 (78) 97 Vapotherm 25.00 25.00 06/07/19 11:28 95 Vapotherm 25.00 70 06/07/19 09:00 97.3 62 22 118/47 (70) 98 Vapotherm 70.00 25.00 I & O 06/08/19 07:00 Intake Total 1505 ml Output Total 3350 ml Balance -1845 ml Height & Weight Height: 6'0.00" Weight: 295lbs. 14.4oz. 134.794952mm; 39.2 BMI Method:Stated General Appearance: WD/WN, Chronically ill, Mild Distress, Obese HEENT: PERRL/EOMI, Normal ENT Inspection, Pharynx Normal, Moist Mucous Membranes Neck: Full Range of Motion, Normal Inspection, Non Tender Respiratory: Chest Non Tender, Accessory Muscle Use, Crackles, Decreased Breath Sounds, Respiratory Distress, Wheezing Cardiovascular: Regular Rate, Rhythm, No Edema, No Gallop, No JVD, No Murmur, Normal Peripheral Pulses Capillary Refill: Less Than 3 Seconds Gastrointestinal: non tender, soft, no organomegaly Extremity: Normal Capillary Refill, Normal Inspection, Normal Range of Motion, Non Tender, No Calf Tenderness, No Pedal Edema Neurologic/Psychiatric: Alert, Oriented x3, No Motor/Sensory Deficits, Normal Mood/Affect, cuff setter II-XII Norm as Tested Skin: Normal Color, Warm/Dry Lymphatic: No Adenopathy Results Lab Laboratory Tests 06/06/19 11:00 06/07/19 03:13 06/07/19 04:42 06/08/19 05:25 Assessment/Plan Assessment/Plan COPDAE -- Doubt PNA -SVNS -oxygen -Solumedrol -C02 48 -Repeat CXR Obesity hypoventilation syndrome -Will place on BiPAP QHS CHFAE/ischemic cardiomyopathy EF 35-40% -Lasix - Continue Tobacco use -Education Anemia CAD Chronic LBBB pattern Laryngeal CA dx 2017 -Treated with radiation per Dr. Eubanks and followed by CARMELO Lewis DO Jun 08, 2019 09:03
--- NOTE | 2019-06-08 09:34 | Progress Note - Surgery ---
Subjective Date Seen by a Provider: Jun 08, 2019 Time Seen by a Provider: 09:29 Subjective/Events-last exam breathing improved he states. tolerating diet. no new complaints. no dark or bloody stools. denies n/v fever sweats chills or chest pain. Objective Exam Vital Signs Date Time Temp Pulse Resp B/P (MAP) Pulse Ox O2 Delivery O2 Flow Rate FiO2 06/08/19 08:00 98.2 77 18 110/65 (80) 96 Vapotherm 75.00 25.00 06/08/19 06:13 97 Vapotherm 25.00 70 06/08/19 04:00 97.7 54 18 112/54 (73) 100 Vapotherm 70.00 25.00 06/08/19 02:42 92 Vapotherm 25.00 70 06/08/19 00:00 97.4 68 14 94/50 (65) 98 Vapotherm 70.00 25.00 06/07/19 22:48 90 Vapotherm 25.00 70 06/07/19 20:32 98.2 77 22 115/52 (73) 98 Vapotherm 70.00 25.00 06/07/19 20:00 Vapotherm 06/07/19 19:08 93 Vapotherm 25.00 70 06/07/19 16:45 97.9 66 18 113/62 (79) 98 Vapotherm 75.00 25.00 06/07/19 12:31 62 22 110/62 (78) 97 Vapotherm 25.00 25.00 06/07/19 11:28 95 Vapotherm 25.00 70 I & O 06/08/19 07:00 Intake Total 1505 ml Output Total 3350 ml Balance -1845 ml Capillary Refill : Less Than 3 Seconds General Appearance: WD/WN, Chronically ill, Obese HEENT: PERRL/EOMI, Normal ENT Inspection, Pharynx Normal, Moist Mucous Membranes Neck: Full Range of Motion, Normal Inspection, Non Tender Respiratory: Chest Non Tender, Accessory Muscle Use Cardiovascular: Regular Rate, Rhythm, No Edema, No Gallop, No JVD, No Murmur, Normal Peripheral Pulses Gastrointestinal: non tender, soft, no organomegaly Extremity: Normal Capillary Refill, Normal Inspection, Normal Range of Motion, Non Tender, No Calf Tenderness, No Pedal Edema Neurologic/Psychiatric: Alert, Oriented x3, No Motor/Sensory Deficits, Normal Mood/Affect, brush or broom cutter II-XII Norm as Tested Skin: Normal Color, Warm/Dry Lymphatic: No Adenopathy Results Lab Laboratory Tests 06/07/19 12:04: Lab Scanned Report Transfusion Reaction Form 06/08/19 05:20: 06/08/19 05:25: White Blood Count 4.7, Red Blood Count 3.53L, Hemoglobin 8.9L, Hematocrit 30L, Mean Corpuscular Volume 86, Mean Corpuscular Hemoglobin 25, Mean Corpuscular Hemoglobin Concent 30L, Red Cell Distribution Width 19.4H, Platelet Count 216, Mean Platelet Volume 11.6H, Neutrophils (%) (Auto) 63, Lymphocytes (%) (Auto) 15, Monocytes (%) (Auto) 15H, Eosinophils (%) (Auto) 7, Basophils (%) (Auto) 0, Neutrophils # (Auto) 3.0, Lymphocytes # (Auto) 0.7L, Monocytes # (Auto) 0.7, Eo sinophils # (Auto) 0.3, Basophils # (Auto) 0.0, Sodium Level 135, Potassium Level 4.2, Chloride Level 92L, Carbon Dioxide Level 34H, Anion Gap 9, Blood Urea Nitrogen 23H, Creatinine 0.94, Estimat Glomerular Filtration Rate > 60, BUN/Creatinine Ratio 24, Glucose Level 93, Calcium Level 8.8, Corrected Calcium 9.2, Total Bilirubin 0.6, Aspartate Amino Transf (AST/SGOT) 27, Alanine Aminotransferase (ALT/SGPT) 18, Alkaline Phosphatase 137H, Total Protein 7.1, Albumin 3.5 Assessment/Plan Assessment/Plan Assessment/Plan Anemia, melena, Dyspnea, COPD acute exacerbation, congestive heart failure Patient hemoglobin slightly increased today. We'll continue to follow hemoglobin. Transfuse packed red blood cells as needed. Patient would benefit from endoscopy but to do outpatient versus inpatient once more pressing issues improved. Will follow, no surgical intervention at this time. On protonix Clinical Quality Measures DVT/VTE Risk/Contraindication: Risk Factor Score Per Nursin RFS Level Per Nursing on Admit: 4+=Very High STEPHAN SPARKS DO Jun 08, 2019 09:34
--- NOTE | 2019-06-08 09:43 | Progress Note - Hospitalist ---
Subjective HPI/CC On Admission Date Seen by Provider: Jun 08, 2019 Time Seen by Provider: 09:00 CC: Dyspnea with AECHF HPI: This is a 63yoWM clinic patient of Dr Lopez who has a h/o CHF and COPD and continues to smoke who presented to the ER with increasing dyspnea and found to have fluid overload and hypoxia requiring admit with Vapotherm to maintain sats. Hgb is 8.5 having some bloody stools in the ER so Dr. Robertson is consulted and he will need an endoscopy once he is stabilized Wants to be off Vapotherm Denies any other significant pain Consulted Dr. Steele Appreciate Dr. Daniel on CHF management Asked for Miralax so I ordered that Checked meds and labs Subjective/Events-last exam Still on Vapotherm Dr. Steele appreciated in trying to wean off oxygen Dr. Robertson is monitoring Hgb s/p 2 units of blood 06/06/19 Dr. 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 Denies any other significant pain issues Checked meds and labs Review of Systems Pulmonary: Dyspnea Objective Exam Vital Signs Vital Signs Date Time Temp Pulse Resp B/P (MAP) Pulse Ox O2 Delivery O2 Flow Rate FiO2 06/08/19 18:44 92 Vapotherm 25.00 60 06/08/19 16:52 98.5 60 18 103/51 (68) Capillary Refill : Less Than 3 Seconds General Appearance: WD/WN, Anxious, Chronically ill, Obese HEENT: PERRL/EOMI, Normal ENT Inspection, Pharynx Normal, Moist Mucous Membranes Neck: Full Range of Motion, Normal Inspection, Non Tender Respiratory: Chest Non Tender, Accessory Muscle Use Cardiovascular: Regular Rate, Rhythm, No Edema, No Gallop, No JVD, No Murmur, Normal Peripheral Pulses Gastrointestinal: Normal Bowel Sounds, No Organomegaly, No Pulsatile Mass, Non Tender, Soft Back: Normal Inspection, No CVA Tenderness, No Vertebral Tenderness Extremity: Normal Capillary Refill, Normal Inspection, Normal Range of Motion, Non Tender, No Calf Tenderness, No Pedal Edema Neurologic/Psychiatric: Alert, Oriented x3, No Motor/Sensory Deficits, Normal Mood/Affect, 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 Assessment/Plan Assessment and Plan Assess & Plan/Chief Complaint Assessment: Respiratory insufficiency acute maintained on Vapotherm AECOPD AECHF Elevated BNP GIB s/p 2 units of blood Anemia HLP Plan: Vapotherm wean María Byers [place] consultation Needs scope after resp status is stable PT/OT Monitor labs Diagnosis/Problems Diagnosis/Problems (1) Acute on chronic heart failure Status: Acute Qualifiers: Heart failure type: unspecified Qualified Codes: I50.9 - Heart failure, unspecified (2) COPD (chronic obstructive pulmonary disease) Status: Chronic Qualifiers: COPD type: COPD with acute exacerbation Qualified Codes: J44.1 - Chronic obstructive pulmonary disease with (acute) exacerbation (3) Hypoventilation syndrome Status: Chronic (4) Ischemic cardiomyopathy Status: Chronic (5) VIJI (obstructive sleep apnea) Status: Chronic (6) HTN (hypertension) Status: Chronic Qualifiers: Hypertension type: essential hypertension Qualified Codes: I10 - Essential (primary) hypertension (7) Obesity Status: Chronic Qualifiers: Obesity type: due to excess calories Obesity classification: adult class 2 (BMI 35 - 39.9) Serious obesity comorbidity presence: with serious comorbidity Body mass index: BMI 39.0-39.9 Qualified Codes: E66.01 - Morbid (severe) obesity due to excess calories; Z68.39 - Body mass index (bmi) 39.0-39.9, adult (8) CAD (coronary artery disease) Status: Chronic Qualifiers: Coronary Disease-Associated Artery/Lesion type: [place] artery [place] vs. transplanted heart: [place] heart Associated angina: with stable angina Qualified Codes: I25.118 - Atherosclerotic heart disease of [place] coronary artery with other forms of angina pectoris (9) GI bleed Status: Acute Qualifiers: GI bleed type/associated pathology: unspecified gastrointestinal hemorrhage type Qualified Codes: K92.2 - Gastrointestinal hemorrhage, unspecified (10) Transfusion of blood during current hospitalization Status: Acute Clinical Quality Measures DVT/VTE Risk/Contraindication: Risk Factor Score Per Nursin RFS Level Per Nursing on Admit: 4+=Very High DEEPA TAYLOR DO Jun 08, 2019 09:43
[2019-06-08] MEDS: methylPREDNISolone 40 MG/ML (Solu-MEDROL) VIAL IV SCH ×2 (10:21→20:22)
--- NOTE | 2019-06-08 10:45 | Diagnostic Imaging Report ---
INDICATION: Hypoxia and CHF. TIME OF EXAM: 9:46 AM Correlation is made with prior study from 06/06/2019. FINDINGS: The heart is enlarged, but stable. Cardiac defibrillator remains in place. Congestive changes in both lungs persist but may be slightly improved. There is no effusion or pneumothorax. IMPRESSION: Improvement in CHF when compared with exam 2 days earlier. Dictated by: Dictated on workstation # [id number]
[2019-06-08 12:00] VITALS: BP 107/55
[2019-06-08 16:52] VITALS: BP 103/51
[2019-06-08] MEDS: KCL 20 MEQ TAB (K-DUR) PO PRN (17:45)
--- NOTE | 2019-06-08 19:56 | Cardiology Progress Note ---
Cardiology SOAP Progress Note Subjective: Improved shortness of breath. Objective: I&O/Vital Signs 06/08/19 06/08/19 06/08/19 06/08/19 08:00 08:00 10:18 12:00 Temp 98.2 97.9 Pulse 77 60 Resp 18 18 B/P (MAP) 110/65 (80) 107/55 (72) Pulse Ox 96 93 93 O2 Delivery Vapotherm Vapotherm Vapotherm Vapotherm O2 Flow Rate 75.00 25.00 25.00 75.00 25.00 25.00 FiO2 70 60 06/08/19 06/08/19 06/08/19 14:22 16:52 18:44 Temp 98.5 Pulse 60 Resp 18 B/P (MAP) 103/51 (68) Pulse Ox 91 96 92 O2 Delivery Vapotherm Vapotherm Vapotherm O2 Flow Rate 25.00 60.00 25.00 25.00 FiO2 60 60 06/08/19 00:00 Intake Total 1380 ml Output Total 3350 ml Balance -1970 ml Weight (Pounds): 295 Weight (Ounces): 14.4 Weight (Calculated Kilograms): 134.280983 Constitutional: AAO x 3, well-developed, well-nourished Respiratory: No accessory muscle use, No respiratory distress; chest expansion is symmetric, chest is bilaterally symmetric, rhonchi (scattered), other (coarse lung sounds) Cardiovascular: regular rate-rhythm, S1 and S2, systolic murmur Gastrointestional: No tender; round, audible bowel sounds Extremities: No normal range of motion, No non-tender, No normal inspection, No pedal edema, No calf tenderness, No normal capillary refill, No pelvis stable, No calf tenderness, No inflammation, No pedal edema, No slow capillary refill, No swelling, No other, No abrasion, No clubbing, No cyanosis, No ecchymosis, No laceration, No no lower extremity edema bilateral; significant edema (bilat LE swelling 3(+)); No tenderness, No wound Neurologic/Psychiatric: no motor/sensory deficits, alert, normal mood/affect, oriented x 3, grossly intact, power is 5/5 both on sides Skin: No rash, No ulcerations Results/Procedures: Labs Laboratory Tests 06/08/19 05:20: B-Type Natriuretic Peptide 414.3H 06/08/19 05:25: White Blood Count 4.7, Red Blood Count 3.53L, Hemoglobin 8.9L, Hematocrit 30L, Mean Corpuscular Volume 86, Mean Corpuscular Hemoglobin 25, Mean Corpuscular Hemoglobin Concent 30L, Red Cell Distribution Width 19.4H, Platelet Count 216, Mean Platelet Volume 11.6H, Neutrophils (%) (Auto) 63, Lymphocytes (%) (Auto) 15, Monocytes (%) (Auto) 15H, Eosinophils (%) (Auto) 7, Basophils (%) (Auto) 0, Neutrophils # (Auto) 3.0, Lymphocytes # (Auto) 0.7L, Monocytes # (Auto) 0.7, Eosinophils # (Auto) 0.3, Basophils # (Auto) 0.0, Sodium Level 135, Potassium Level 4.2, Chloride Level 92L, Carbon Dioxide Level 34H, Anion Gap 9, Blood Urea Nitrogen 23H, Creatinine 0.94, Estimat Glomerular Filtration Rate > 60, BUN/Creatinine Ratio 24, Glucose Level 93, Calcium Level 8.8, Corrected Calcium 9.2, Total Bilirubin 0.6, Aspartate Amino Transf (AST/SGOT) 27, Alanine Aminotransferase (ALT/SGPT) 18, Alkaline Phosphatase 137H, Total Protein 7.1, Albumin 3.5 A/P: Assessment/Dx: Multifactorial dyspnea: acute on chronic systolic CHF, acute exacerbation of COPD, obesity-hypoventilation syndrome, anemia of undetermined etiology Acute on chronic systolic CHF due to ischemic cardiomyopathy Chronic obstructive pulmonary disease due to tobaccoism, followed by Dr Steele. Has intermittent hypoxia for which he is on prn oxygen Obesity with obesity-hypoventilation syndrome Anemia of undetermined etiology - suspected GI bleed S/p removal of L-sided ICD and associated leads for device pocket infection in Dec 2013. He now has new leads and a new R-sided device that was placed in Dec 2013, functioning normally per interrogation of May 31, 2019 Coronary artery disease artery disease. Last cath was on 04/26/18. It showed severe prox disease of LA that was stented with Alp Xience 4x15. In the mid LAD there were patent overlapping stents (Geriatric Nursing Assistant [id number] Geriatric Nursing Assistant 3x24) and the 1st OM of LCX had a patent stent (Promus James 3.5x12). The RCA was dominant with mild plaques. LVEF was 40% there was anteroapical hypokinesis and mild elev of LVEDP Echo of 06/06/19: LVEF 35-40%, mod dilatation of LA, RVSP 40 mmHg Chronic LBBB pattern H/o labile bp Hyperlipidemia, being treated with statin therapy. Glucose intolerance. Chronic bilateral lower extremity edema Chronic back pain for which he has been taking hydrocodone. CT spine of 02/05/17 (Dr Bolivar) has shown lumbar spondylosis and foraminal narrowing Mild AAA, measuring 3.6 cm nahum, along with mod stenosis of the R common iliac artery, on CT angio of 02/10/17 Chronic tobacco use - cessation advised Mild bilat carotid art disease on u/s of February 2013 on u/s of 03/30/17 (R ICA not well-visualized on carotid u/s of 03/30/17) Laryngeal CA diagnosed (Jul 2018) treated with radiation per Dr. Eubanks and followed by Dr. Muñoz Plan: * Complex management due to multiple comorbidities * Treat with diuretics * Transfuse PRBCs * Surgical consult to eval for endoscopy to look for GI bleed * Monitor labs * Advised immediate and complete smoking cessation * If EF drops below 35%, consider upgrade of ICD to biV device Thank you for your consultation. Please call me if you have any questions. Glenda Daniel MD, FACP, FACC, FSCAI, FHRS, CCDS Interventional Cardiology Cardiac Electrophysiology Vascular Medicine and Endovascular Interventions Shukri DANIEL MD Jun 08, 2019 19:56
[2019-06-08] MEDS: MONTELUKAST 10 MG (SINGULAIR) TAB PO SCH (20:22)
[2019-06-08] MEDS: ATORVASTATIN 80 MG (LIPITOR) TABLET PO SCH (20:22)
[2019-06-08 20:31] VITALS: BP 103/49
[2019-06-09] VITALS (7 sets, daily range): BP systolic 103–127; BP diastolic 51–64
[2019-06-09] MEDS: RT-ALBUTEROL/IPRATROPIUM 3 ML (DUONEB) VIAL INH SCH ×5 (02:32→18:57)
--- NOTE | 2019-06-09 06:25 | Pulmonary Progress Note ---
Subjective Time Seen by a Provider: 06:29 Subjective/Events-last exam Pt is still on Vapotherm currently. Sepsis Event Evaluation Height, Weight, BMI Height: 6'0.00" Weight: 295lbs. 14.4oz. [id number]; 39.2 BMI Method:Stated Exam Exam Vital Signs Date Time Temp Pulse Resp B/P (MAP) Pulse Ox O2 Delivery O2 Flow Rate FiO2 06/09/19 04:00 98.3 61 18 109/55 (73) 97 Vapotherm 60.00 25.00 06/09/19 02:31 92 Vapotherm 25.00 60 06/09/19 00:00 98.7 65 22 116/55 (75) 96 Vapotherm 60.00 25.00 06/08/19 22:29 93 Vapotherm 25.00 60 06/08/19 20:31 98.2 76 22 103/49 (67) 100 Vapotherm 60.00 25.00 06/08/19 20:00 Vapotherm 25.00 60 06/08/19 18:44 92 Vapotherm 25.00 60 06/08/19 16:52 98.5 60 18 103/51 (68) 96 Vapotherm 60.00 25.00 06/08/19 14:22 91 Vapotherm 25.00 60 06/08/19 12:00 97.9 60 18 107/55 (72) 93 Vapotherm 75.00 25.00 06/08/19 10:18 93 Vapotherm 25.00 60 06/08/19 08:00 Vapotherm 25.00 70 06/08/19 08:00 98.2 77 18 110/65 (80) 96 Vapotherm 75.00 25.00 I & O 06/09/19 07:00 Intake Total 1700 ml Output Total 3250 ml Balance -1550 ml Height & Weight Height: 6'0.00" Weight: 295lbs. 14.4oz. [id number]; 39.2 BMI Method:Stated General Appearance: WD/WN, Anxious, Chronically ill, Obese HEENT: PERRL/EOMI, Normal ENT Inspection, Pharynx Normal, Moist Mucous Membranes Neck: Full Range of Motion, Normal Inspection, Non Tender Respiratory: Chest Non Tender, Accessory Muscle Use Cardiovascular: Regular Rate, Rhythm, No Edema, No Gallop, No JVD, No Murmur, Normal Peripheral Pulses Capillary Refill: Less Than 3 Seconds Gastrointestinal: non tender, soft Extremity: Normal Capillary Refill, Normal Inspection, Normal Range of Motion, Non Tender, No Calf Tenderness, No Pedal Edema Neurologic/Psychiatric: Alert, Oriented x3, No Motor/Sensory Deficits, Normal Mood/Affect, 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 CHFAE/ischemic cardiomyopathy EF 35-40% -Lasix - Continue Tobacco use -Education Anemia CAD Chronic LBBB pattern Laryngeal CA dx 2017 -Treated with radiation per Dr. Eubanks and followed by CARMELO Lewis DO Jun 09, 2019 06:25
[2019-06-09 06:34] LABS: BASOPHILS % (AUTO) 0 % (0-10); EOSINOPHILS % (AUTO) 0 % (0-10); HEMATOCRIT 28 % (40-54); HEMOGLOBIN 8.3 G/DL (13.3-17.7); LYMPHOCYTES # (AUTO) 0.3 X 10^3 (1.0-4.0); LYMPHOCYTES % (AUTO) 5 % (12-44); MEAN CORPUSCULAR HEMOGLOBIN 25 PG (25-34); MEAN CORPUSCULAR HGB CONC 29 G/DL (32-36); MEAN CORPUSCULAR VOLUME 85 FL (80-99); MEAN PLATELET VOLUME 11.3 FL (7.4-10.4); MONOCYTES # (AUTO) 0.3 X 10^3 (0.0-1.0); MONOCYTES % (AUTO) 4 % (0-12); NEUTROPHILS # (AUTO) 6.4 X 10^3 (1.8-7.8); NEUTROPHILS % (AUTO) 91 % (42-75); PLATELET COUNT 230 10^3/uL (130-400); RED CELL DISTRIBUTION WIDTH 19.2 % (10.0-14.5); WHITE BLOOD COUNT 7.1 10^3/uL (4.3-11.0)
[2019-06-09] MEDS: PANTOPRAZOLE 40 MG (PROTONIX) TAB PO SCH (06:43)
[2019-06-09] MEDS: CATHETER FLUSH 10 ML SYR IV SCH ×3 (06:43→22:13)
[2019-06-09] MEDS: FUROSEMIDE 40 MG/4 ML INJ (LASIX) IV SCH ×2 (06:43→17:27)
[2019-06-09 06:50] LABS: ALANINE AMINOTRANSFERASE 22 U/L (0-55); ALBUMIN 3.5 GM/DL (3.2-4.5); ALKALINE PHOSPHATASE 129 U/L (40-136); BILIRUBIN,TOTAL 0.5 MG/DL (0.1-1.0); BUN/CREATININE RATIO 27; CALCIUM 8.5 MG/DL (8.5-10.1); CARBON DIOXIDE 29 MMOL/L (21-32); CHLORIDE 93 MMOL/L (98-107); CREATININE SERUM 1.07 MG/DL (0.60-1.30); GFR ESTIMATED > 60; GLUCOSE 188 MG/DL (70-105); POTASSIUM 4.4 MMOL/L (3.6-5.0); SODIUM 133 MMOL/L (135-145); TOTAL PROTEIN 6.8 GM/DL (6.4-8.2)
[2019-06-09] MEDS: predniSONE 10 MG TAB PO SCH (07:59)
[2019-06-09] MEDS: lisINopril 40 MG (PRINIVIL) TABLET PO SCH (08:56)
[2019-06-09] MEDS: ASPIRIN 81 MG CHEW (CHILDREN'S ASA) PO SCH (08:56)
[2019-06-09] MEDS: POLYETHYLENE GLYCOL 17 GM (MIRALAX) PACK PO SCH ×2 (08:57→22:12)
[2019-06-09] MEDS: CLOPIDOGREL 75 MG (PLAVIX) TABLET PO SCH (08:57)
[2019-06-09] MEDS: CARVEDILOL 12.5 MG (COREG) TABLET PO SCH ×2 (08:57→22:13)
--- NOTE | 2019-06-09 10:06 | NUR ---
Coverage and benefits explored with the patient's [employer] insurance. Shanika does not have swing bed/skilled benefits under his insurance. Updated primary care doctor, primary care nurse, et Shanika. No further interventions noted at this time.
--- NOTE | 2019-06-09 10:12 | Progress Note - Hospitalist ---
Subjective HPI/CC On Admission Date Seen by Provider: Jun 09, 2019 Time Seen by Provider: 10:15 CC: Dyspnea with AECHF HPI: This is a 63yoWM clinic patient of Dr Lopez who has a h/o CHF and COPD and continues to smoke who presented to the ER with increasing dyspnea and found to have fluid overload and hypoxia requiring admit with Vapotherm to maintain sats. Hgb is 8.5 having some bloody stools in the ER so Dr. Robertson is consulted and he will need an endoscopy once he is stabilized Wants to be off Vapotherm Denies any other significant pain Consulted Dr. Steele Appreciate Dr. 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 until sometime next week Review of Systems General: Fatigue Pulmonary: Dyspnea Gastrointestinal: Constipation Objective Exam Vital Signs Vital Signs Date Time Temp Pulse Resp B/P (MAP) Pulse Ox O2 Delivery O2 Flow Rate FiO2 06/09/19 10:06 95 High Flow N/C 10.00 06/09/19 10:06 65 06/09/19 08:00 98.1 22 127/58 (81) 06/09/19 06:59 60 Capillary Refill : Less Than 3 Seconds General Appearance: WD/WN, Anxious, Chronically ill, Obese HEENT: PERRL/EOMI, Normal ENT Inspection, Pharynx Normal, Moist Mucous Membranes Neck: Full Range of Motion, Normal Inspection, Non Tender Respiratory: Chest Non Tender, Lungs Clear, No Accessory Muscle Use, No Respiratory Distress, Decreased Breath Sounds Cardiovascular: Regular Rate, Rhythm, No Edema, No Gallop, No JVD, No Murmur, Normal Peripheral Pulses Gastrointestinal: Normal Bowel Sounds, No Organomegaly, No Pulsatile Mass, Non Tender, Soft Back: Normal Inspection, No CVA Tenderness, No Vertebral Tenderness Extremity: Normal Capillary Refill, Normal Inspection, Normal Range of Motion, Non Tender, No Calf Tenderness, Pedal Edema Neurologic/Psychiatric: Alert, Oriented x3, No Motor/Sensory Deficits, Normal Mood/Affect, cardiology physician II-XII Norm as Tested Skin: Normal Color, Warm/Dry Lymphatic: No Adenopathy Results/Procedures Lab Laboratory Tests 06/09/19 05:25 Patient resulted labs reviewed. Assessment/Plan Assessment and Plan Assess & Plan/Chief Complaint Assessment: Respiratory insufficiency acute maintained on high crystal O2 15 liters weaned from Vapotherm AECOPD AECHF Elevated BNP GIB s/p 2 units of blood Anemia HLP Edema Plan: Vapotherm weaned María Byers [place] consultation Needs scope after resp status is stable PT/OT Monitor labs Diagnosis/Problems Diagnosis/Problems (1) Acute on chronic heart failure Status: Acute Qualifiers: Heart failure type: unspecified Qualified Codes: I50.9 - Heart failure, unspecified (2) COPD (chronic obstructive pulmonary disease) Status: Chronic Qualifiers: COPD type: COPD with acute exacerbation Qualified Codes: J44.1 - Chronic obstructive pulmonary disease with (acute) exacerbation (3) Hypoventilation syndrome Status: Chronic (4) Ischemic cardiomyopathy Status: Chronic (5) VIJI (obstructive sleep apnea) Status: Chronic (6) HTN (hypertension) Status: Chronic Qualifiers: Hypertension type: essential hypertension Qualified Codes: I10 - Essential (primary) hypertension (7) Obesity Status: Chronic Qualifiers: Obesity type: due to excess calories Obesity classification: adult class 2 (BMI 35 - 39.9) Serious obesity comorbidity presence: with serious comorbidity Body mass index: BMI 39.0-39.9 Qualified Codes: E66.01 - Morbid (severe) obesity due to excess calories; Z68.39 - Body mass index (bmi) 39.0-39.9, adult (8) CAD (coronary artery disease) Status: Chronic Qualifiers: Coronary Disease-Associated Artery/Lesion type: [place] artery [place] vs. transplanted heart: [place] heart Associated angina: with stable angina Quali fied Codes: I25.118 - Atherosclerotic heart disease of [place] coronary artery with other forms of angina pectoris (9) GI bleed Status: Acute Qualifiers: GI bleed type/associated pathology: unspecified gastrointestinal hemorrhage type Qualified Codes: K92.2 - Gastrointestinal hemorrhage, unspecified (10) Transfusion of blood during current hospitalization Status: Acute Clinical Quality Measures DVT/VTE Risk/Contraindication: Risk Factor Score Per Nursin RFS Level Per Nursing on Admit: 4+=Very High DEEPA TAYLOR DO Jun 09, 2019 10:12
[2019-06-09] MEDS ORDERED: RT-ALBUTEROL/IPRATROPIUM 3 ML (DUONEB) VIAL INH PRN (10:30)
--- NOTE | 2019-06-09 11:20 | Physical Therapy Evaluation ---
PT Evaluation-General Medical Diagnosis Admission Date Jun 06, 2019 at 12:33 Medical Diagnosis: CHF exacerbation Onset Date: Jun 06, 2019 Therapy Diagnosis Therapy Diagnosis: debility Height/Weight Height (Feet): 6 Height (Inches): 0.00 Weight (Pounds): 295 Weight (Ounces): 14.4 Precautions Precautions/Isolations: Standard Precautions Referral Physician: Morgan Reason for Referral: Evaluation/Treatment Medical History Pertinent Medical History: CAD, COPD, Heart Failure, HTN, [place], Smoking Current History ER secondary to SOB and edema. Patient had not taken his Lasix due to frequent urination Reviewed History: Yes Social History Home: Single Level Current Living Status: Alone Prior/Core FIM Prior Level of Function Therapy Code Descriptions/Definitions Functional [place] Measure: 0=Not Assessed/NA 4=Minimal Assistance 1=Total Assistance 5=Supervision or Setup 2=Maximal Assistance 6=Modified [place] 3=Moderate Assistance 7=Complete [place] Therapy Quality Codes: 6 Independent with activity with or without an assistive device 5 Patient requires set up or clean up by helper. Patient completes activity by themselves 4 Supervision or touching assist (CGA). [place] provide cues , steadying assist 3 The helper provides less than half the effort to complete the activity 2 The helper provides more than half the effort to complete the activity 1 Dependent. The helper does all the effort to complete an activity 7 Patient refused to complete or attempt activity 9 The patient did not perform the activity before the current illness or injury 88 Not attempted due to Medical conditions or safety concerns Functional Abilities and Goals: Independent: Patient completed the activities by him/herself, with or without an assistive device, with no assistance from a helper. Needed Some Help: Patient needed partial assistance from another person to complete activities. Dependent: A helper completed the activities for the patient. Unknown: Not Applicable: Bed Mobility: 6 Transfers (B,C,W/C) (FIM): 6 Gait: 6 Indoor Mobility (Ambulation): Independent Stairs: Independent Prior Devices Use: None furniture walks and utilizes a cart or power scooter in stores PT Evaluation-Current Subjective Patient report his SAO2 decreases all the time with minimal activity. Pain Numeric Pain Scale: 0-No Pain Location: No Pain Reported Objective Patient Orientation: Normal For Age Problem Solving: Good Attachments: Oxygen (5L HF NC) ROM/Strength ROM Lower Extremities bilateral LE WFL Strength Lower Extremities 4+/5 grossly bilaterally Integumentary/Posture Integumentary refer to nursing notes Bowel Incontinence: No Bladder Incontinence: No Posture WFL Neuromuscular (Tone, Coordination, Reflexes) grossly intact Sensory Vision: Functional Hearing: Functional Sensation Right Lower Extremit: Intact Sensation Left Lower Extremity: Intact Transfers Therapy Code Descriptions/Definitions Functional [place] Measure: 0=Not Assessed/NA 4=Minimal Assistance 1=Total Assistance 5=Supervision or Setup 2=Maximal Assistance 6=Modified [place] 3=Moderate Assistance 7=Complete [place] Transfers (B, C, W/C) (FIM): 6 Scootin Sit to/from Stand: 6 Gait Mode of Locomotion: Walk Anticipated Mode of Locomotion: Walk Gait (FIM): 6 Distance (FIM): 3=150 ft Distance: 350' Gait Level of Assist: 6 Gait Assistive Device: FWW Comments/Gait Description FWW for energy conservation Balance Sitting Static: Normal Sitting Dynamic: Normal Standing Static: Normal Standing Dynamic: Normal Assessment/Needs 63 y.o. male, will be seen x 2 sessions to address pulmonary function with distance ambulation. Patient SAO2 decreases to 75% on 8L O2 NC HF with ambulation. Physician is aware. Patient is up ad yoanna in room. Rehab Potential: Guarded Post Rehab Potential-Barriers: smoker PT Short Term Goals Short Term Goals Time Frame: Jun 10, 2019 Transfers (B,C,W/C) (FIM): 6 Gait (FIM): 6 Distance (FIM): 3=150 ft Gait Level of Assist: 6 Gait Assistive Device: FWW PT Plan Treatment/Plan Treatment Plan: Continue Plan of Care Treatment Plan: Education, Functional Activity Manish, Gait, Safety, Therapeutic Exercise Treatment Duration: Jun 10, 2019 Frequency: 2 times per week Estimated Hrs Per Day: .25 hour per day Patient and/or Family Agrees t: Yes Time/GCodes Time In: 1028 Time Out: 1043 Total Billed Treatment Time: 15 Total Billed Treatment 1 visit EVModC 15 min JARVIS CUMMINGS PT Jun 09, 2019 11:20
--- NOTE | 2019-06-09 11:23 | Occupational Therapy Eval ---
OT Evaluation-General/PLF Medical Diagnosis Admission Date Jun 06, 2019 at 12:33 Medical Diagnosis: CHF exacerbation Onset Date: Jun 09, 2019 Therapy Diagnosis Therapy Diagnosis: impaired ADLs and mobility Height/Weight Height (Feet): 6 Height (Inches): 0.00 Weight (Pounds): 295 Weight (Ounces): 14.4 Precautions Precautions/Isolations: Fall Prevention, Standard Precautions Safety Interventions: None Weight Bear Status Weight Bearing Restriction: Weight Bearing/Tolerated Referral Referral Reason: Activity Tolerance, Self Care, Evaluation/Treatment, Strengthening/ROM Medical History Current History HPI: This is a 63yoWM clinic patient of Dr Lopez who has a h/o CHF and COPD and continues to smoke who presented to the ER with increasing dyspnea and found to have fluid overload and hypoxia requiring admit with Vapotherm to maintain sats Reviewed History: Yes Social History Home: Single Level Current Living Status: Other Family (grown son ) Entry Into Home: Stairs With Railing Steps Into Home: 4 ADL-Prior Level of Function Therapy Code Descriptions/Definitions Functional [place] Measure: 0=Not Assessed/NA 4=Minimal Assistance 1=Total Assistance 5=Supervision or Setup 2=Maximal Assistance 6=Modified [place] 3=Moderate Assistance 7=Complete [place] Therapy Quality Codes: 6 Independent with activity with or without an assistive device 5 Patient requires set up or clean up by helper. Patient completes activity by themselves 4 Supervision or touching assist (CGA). [place] provide cues , steadying assist 3 The helper provides less than half the effort to complete the activity 2 The helper provides more than half the effort to complete the activity 1 Dependent. The helper does all the effort to complete an activity 7 Patient refused to complete or attempt activity 9 The patient did not perform the activity before the current illness or injury 88 Not attempted due to Medical conditions or safety concerns Functional Abilities and Goals: Independent: Patient completed the activities by him/herself, with or without an assistive device, with no assistance from a helper. Needed Some Help: Patient needed partial assistance from another person to complete activities. Dependent: A helper completed the activities for the patient. Unknown: Not Applicable: ADL PLOF Comments pt stated he was independ. 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 pt staed his O2 saturation would decrease to 70% while ambulating as of 2 years ago. 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 pt sitting in recliner chair upon OT arrival. pt c/o no pain. Pain Numeric Pain Scale: 0-No Pain Mental Status/Objective Patient Orientation: Person, Place, Time, Situation Attachments: Oxygen (5L) Current Glasses/Contacts: Yes Hearing Aids: No Dentures/Partials: No Hand Dominance: Right Upper Extremity ROM WFL Upper Extremity Coordination finger to nose: WNL opposition: WNL Upper Extremity Sensation WFL Upper Extremity Strength 4+/5 MMT ADL-Treatment Therapy Code Descriptions/Definitions Functional [place] Measure: 0=Not Assessed/NA 4=Minimal Assistance 1=Total Assistance 5=Supervision or Setup 2=Maximal Assistance 6=Modified [place] 3=Moderate Assistance 7=Complete [place] Therapy Quality Codes: 6 Independent with activity with or without an assistive device 5 Patient requires set up or clean up by helper. Patient completes activity by themselves 4 Supervision or touching assist (CGA). [place] provide cues , steadying assist 3 The helper provides less than half the effort to complete the activity 2 The helper provides more than half the effort to complete the activity 1 Dependent. The helper does all the effort to complete an activity 7 Patient refused to complete or attempt activity 9 The patient did not perform the activity before the current illness or injury 88 Not attempted due to Medical conditions or safety concerns EVALUATION ONLY: pt required MOD A for LB dressing, SBA for UB dressing, grooming,, and CGA for functional transfers. noted decrease activity tolerance Other Treatments pt education on incorporating energy conservation techniques within ADLs. noted pt perform doffing Roddy sock and became SOB. O2 saturation decrease to 83% pt ed ucation on pursed lip breathing. pt demo understanding pt required 4 minutes for recovery . pt education on energy conservation techniques throughout every day task. pt verbalized understanding and was able to name example of incorporating into every day life. pt stated his O2 has decrease with activity as low as 60% in past for about 2 years now. O2 saturated was 94% prior to OT leaving. NSG was notified. pt resting recliner chair, call light within reach all needs met Education OT Patient Education: Energy conservation Teaching Recipient: Patient Teaching Methods: Discussion Response to Teaching: Verbalize Understanding OT Short Term Goals Short Term Goals Bathing(FIM): 5 1=Demonstrate adherence to instructed precautions during ADL tasks. 2=Patient will verbalize/demonstrate understanding of assistive devices/modifications for ADL. 3=Patient will improve strength/tolerance for activity to enable patient to perform ADL's. OT Carpenter Supervisor [employer] Goals Carpenter Supervisor [employer] Goals Time Frame: Jun 23, 2019 Grooming(FIM): 7 Bathing(FIM): 6 Bathing Location: L Arm, R Arm, L Upper Leg, R Upper Leg, L Lower Leg (including foot), R Lower Leg (including foot), Chest, Abdomen, Buttocks, Perineal Area Upper Body Dressing(FIM): 6 Lower Body Dressing(FIM): 6 Toileting(FIM): 6 Transfers (B,C,W/C) (FIM): 6 Toilet/Commode Transfer(FIM): 6 Additional Goals: 1-Demonstrate ADL Tasks, 2-Verbalize Understanding, 3-Impro veStrength/Manish 1=Demonstrate adherence to instructed precautions during ADL tasks. 2=Patient will verbalize/demonstrate understanding of assistive devices/modifications for ADL. 3=Patient will improve strength/tolerance for activity to enable patient to perform ADL's. OT Education/Plan Problem List/Assessment Assessment: Decreased Activ Tolerance, Decreased Safety Aware, Impaired I ADL's pt presents with functional limitations affecting areas of ADLs and functional transfer with deficits in the above mention. pt would benefit from OT services to increase independence with ADLS, functional transfers, and learning techniques to incorporate energy conservation within daily activities. Discharge Recommendations Plan/Recommendations: Continue POC Therapy D/C Recommendations: Home w/ Family Support Treatment Plan/Plan of Care Treatment,Training & Education: Yes Patient would benefit from OT for education, treatment and training to promote independence in ADL's, mobility, safety and/or upper extremity function for ADL's. Plan of Care: ADL Retraining, Caregiver Training, Functional Mobility, Group Exercise/Act as Ind, UE Funct Exercise/Act Treatment Duration: Jun 23, 2019 Frequency: 5 times per week Estimated Hrs Per Day: .25 hour per day Agreement: Yes Rehab Potential: Fair Time/GCodes Start Time: 11:00 Stop Time: 11:25 Billed Treatment Time EVM 15 minutes, FA 10 minutes, 1 unit KENNEYLETTY OT Jun 09, 2019 11:23
--- NOTE | 2019-06-09 12:33 | Cardiology Progress Note ---
Cardiology SOAP Progress Note Subjective: Improved shortness of breath. Objective: I&O/Vital Signs 06/09/19 06/09/19 06/09/19 06/09/19 02:31 04:00 06:59 07:11 Temp 98.3 Pulse 61 Resp 18 B/P (MAP) 109/55 (73) Pulse Ox 92 97 94 94 O2 Delivery Vapotherm Vapotherm Vapotherm High Flow N/C O2 Flow Rate 25.00 60.00 25.00 15.00 25.00 FiO2 60 60 06/09/19 06/09/19 06/09/19 08:00 10:06 10:06 Temp 98.1 Pulse 74 65 Resp 22 B/P (MAP) 127/58 (81) Pulse Ox 98 95 95 O2 Delivery Vapotherm High Flow N/C O2 Flow Rate 60.00 10.00 25.00 06/09/19 00:00 Intake Total 1700 ml Output Total 3250 ml Balance -1550 ml Weight (Pounds): 295 Weight (Ounces): 14.4 Weight (Calculated Kilograms): 134.930792 Constitutional: AAO x 3, well-developed, well-nourished Respiratory: No accessory muscle use, No respiratory distress; chest expansion is symmetric, chest is bilaterally symmetric, rhonchi (scattered), other (coarse lung sounds) Cardiovascular: regular rate-rhythm, S1 and S2, systolic murmur Gastrointestional: No tender; round, audible bowel sounds Extremities: No normal range of motion, No non-tender, No normal inspection, No pedal edema, No calf tenderness, No normal capillary refill, No pelvis stable, No calf tenderness, No inflammation, No pedal edema, No slow capillary refill, No swelling, No other, No abrasion, No clubbing, No cyanosis, No ecchymosis, No laceration, No no lower extremity edema bilateral; significant edema (bilat LE swelling 3(+)); No tenderness, No wound Neurologic/Psychiatric: no motor/sensory deficits, alert, normal mood/affect, oriented x 3, grossly intact, power is 5/5 both on sides Skin: No rash, No ulcerations Results/Procedures: Labs Laboratory Tests 06/09/19 05:25: White Blood Count 7.1, Red Blood Count 3.35L, Hemoglobin 8.3L, Hematocrit 28L, Mean Corpuscular Volume 85, Mean Corpuscular Hemoglobin 25, Mean Corpuscular Hemoglobin Concent 29L, Red Cell Distribution Width 19.2H, Platelet Count 230, Mean Platelet Volume 11.3H, Neutrophils (%) (Auto) 91H, Lymphocytes (%) (Auto) 5L, Monocytes (%) (Auto) 4, Eosinophils (%) (Auto) 0, Basophils (%) (Auto) 0, Neutrophils # (Auto) 6.4, Lymphocytes # (Auto) 0.3L, Monocytes # (Auto) 0.3, Eosinophils # (Auto) 0.0, Basophils # (Auto) 0.0, Sodium Level 133L, Potassium Level 4.4, Chloride Level 93L, Carbon Dioxide Level 29, Anion Gap 11, Blood Urea Nitrogen 29H, Creatinine 1.07, Estimat Glomerular Filtration Rate > 60, BUN/Creatinine Ratio 27, Glucose Level 188H, Calcium Level 8.5, Corrected Calcium 8.9, Total Bilirubin 0.5, Aspartate Amino Transf (AST/SGOT) 21, Alanine Aminotransferase (ALT/SGPT) 22, Alkaline Phosphatase 129, Total Protein 6.8, Albumin 3.5 A/P: Assessment/Dx: Multifactorial dyspnea: acute on chronic systolic CHF, acute exacerbation of CO PD, obesity-hypoventilation syndrome, anemia of undetermined etiology Acute on chronic systolic CHF due to ischemic cardiomyopathy Chronic obstructive pulmonary disease due to tobaccoism, followed by Dr Steele. Has intermittent hypoxia for which he is on prn oxygen Obesity with obesity-hypoventilation syndrome Anemia of undetermined etiology - suspected GI bleed S/p removal of L-sided ICD and associated leads for device pocket infection in Dec 2013. He now has new leads and a new R-sided device that was placed in Dec 2013, functioning normally per interrogation of May 31, 2019 Coronary artery disease artery disease. Last cath was on 04/26/18. It showed severe prox disease of LA that was stented with Alp Xience 4x15. In the mid LAD there were patent overlapping stents (Senior Tax Manager [id number] Senior Tax Manager 3x24) and the 1st OM of LCX had a patent stent (Promus James 3.5x12). The RCA was dominant with mild plaques. LVEF was 40% there was anteroapical hypokinesis and mild elev of LVEDP Echo of 06/06/19: LVEF 35-40%, mod dilatation of LA, RVSP 40 mmHg Chronic LBBB pattern H/o labile bp Hyperlipidemia, being treated with statin therapy. Glucose intolerance. Chronic bilateral lower extremity edema Chronic back pain for which he has been taking hydrocodone. CT spine of 02/05/17 (Dr Bolivar) has shown lumbar spondylosis and foraminal narrowing Mild AAA, measuring 3.6 cm nahum, along with mod stenosis of the R common iliac artery, on CT angio of 02/10/17 Chronic tobacco use - cessation advised Mild bilat carotid art disease on u/s of February 2013 on u/s of 03/30/17 (R ICA not well-visualized on carotid u/s of 03/30/17) Laryngeal CA diagnosed (Jul 2018) treated with radiation per Dr. Eubanks and followed by Dr. Muñoz Plan: * Complex management due to multiple comorbidities * Treat with diuretics * Transfuse PRBCs * Surgical consult to eval for endoscopy to look for GI bleed * Monitor labs * Advised immediate and complete smoking cessation * If EF drops below 35%, consider upgrade of ICD to biV device Thank you for your consultation. Please call me if you have any questions. Glenda Daniel MD, FACP, FACC, FSCAI, FHRS, CCDS Interventional Cardiology Cardiac Electrophysiology Vascular Medicine and Endovascular Interventions Shukri DANIEL MD Jun 09, 2019 12:33
--- NOTE | 2019-06-09 14:57 | Progress Note - Surgery ---
Subjective Date Seen by a Provider: Jun 09, 2019 Time Seen by a Provider: 08:05 Subjective/Events-last exam patient states that he is doing well. His breathing has improved some still. He is on high flow oxygen not on Vapotherm at this time. Tolerating diet. Not having any melana or blood per rectum. Denies fever sweats chills or chest pain. No abdominal pain. Objective Exam Vital Signs Date Time Temp Pulse Resp B/P (MAP) Pulse Ox O2 Delivery O2 Flow Rate FiO2 06/09/19 14:32 92 High Flow N/C 5.00 06/09/19 12:00 97.9 65 24 117/58 (77) 91 Vapotherm 60.00 25.00 06/09/19 10:06 95 High Flow N/C 10.00 06/09/19 10:06 65 95 06/09/19 08:00 98.1 74 22 127/58 (81) 98 Vapotherm 60.00 25.00 06/09/19 07:11 94 High Flow N/C 15.00 06/09/19 06:59 94 Vapotherm 25.00 60 06/09/19 04:00 98.3 61 18 109/55 (73) 97 Vapotherm 60.00 25.00 06/09/19 02:31 92 Vapotherm 25.00 60 06/09/19 00:00 98.7 65 22 116/55 (75) 96 Vapotherm 60.00 25.00 06/08/19 22:29 93 Vapotherm 25.00 60 06/08/19 20:31 98.2 76 22 103/49 (67) 100 Vapotherm 60.00 25.00 06/08/19 20:00 Vapotherm 25.00 60 06/08/19 18:44 92 Vapotherm 25.00 60 06/08/19 16:52 98.5 60 18 103/51 (68) 96 Vapotherm 60.00 25.00 I & O 06/09/19 07:00 Intake Total 2300 ml Output Total 4000 ml Balance -1700 ml Capillary Refill : Less Than 3 Seconds General Appearance: No Apparent Distress, WD/WN, Anxious, Chronically ill, Obese HEENT: PERRL/EOMI, Normal ENT Inspection, Pharynx Normal, Moist Mucous Membra errol Neck: Full Range of Motion, Normal Inspection, Non Tender Respiratory: Chest Non Tender, No Accessory Muscle Use, No Respiratory Distress, Decreased Breath Sounds Cardiovascular: Regular Rate, Rhythm, No Edema, No Gallop, No JVD, No Murmur, Normal Peripheral Pulses Gastrointestinal: non tender, soft Extremity: Normal Capillary Refill, Normal Inspection, Normal Range of Motion, Non Tender, No Calf Tenderness, Pedal Edema Neurologic/Psychiatric: Alert, Oriented x3, No Motor/Sensory Deficits, Normal Mood/Affect, 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 as Tested Skin: Normal Color, Warm/Dry Lymphatic: No Adenopathy Results Lab Laboratory Tests 06/09/19 05:25: White Blood Count 7.1, Red Blood Count 3.35L, Hemoglobin 8.3L, Hematocrit 28L, Mean Corpuscular Volume 85, Mean Corpuscular Hemoglobin 25, Mean Corpuscular Hemoglobin Concent 29L, Red Cell Distribution Width 19.2H, Platelet Count 230, Mean Platelet Volume 11.3H, Neutrophils (%) (Auto) 91H, Lymphocytes (%) (Auto) 5L, Monocytes (%) (Auto) 4, Eosinophils (%) (Auto) 0, Basophils (%) (Auto) 0, Neutrophils # (Auto) 6.4, Lymphocytes # (Auto) 0.3L, Monocytes # (Auto) 0.3, Eosinophils # (Auto) 0.0, Basophils # (Auto) 0.0, Sodium Level 133L, Potassium Level 4.4, Chloride Level 93L, Carbon Dioxide Level 29, Anion Gap 11, Blood Urea Nitrogen 29H, Creatinine 1.07, Estimat Glomerular Filtration Rate > 60, BUN/Creatinine Ratio 27, Glucose Level 188H, Calcium Level 8.5, Corrected Calcium 8.9, Total Bilirubin 0.5, Aspartate Amino Transf (AST/SGOT) 21, Alanine Aminotransferase (ALT/SGPT) 22, Alkaline Phosphatase 129, Total Protein 6.8, Albumin 3.5 Assessment/Plan Assessment/Plan Assessment/Plan Anemia, melena, Dyspnea, COPD acute exacerbation, congestive heart failure Patient hemoglobin slightly increased today. We'll continue to follow hemoglobin still in 8 range min drop today. Transfuse packed red blood cells as needed. Patient would benefit from endoscopy but to do outpatient versus inpatient once more pressing issues improved. Will follow, no surgical intervention at this time. On protonix Clinical Quality Measures DVT/VTE Risk/Contraindication: Risk Factor Score Per Nursin RFS Level Per Nursing on Admit: 4+=Very High STEPHAN SPARKS DO Jun 09, 2019 14:57
[2019-06-09] MEDS: oxyCODONE/APAP 10/325MG (PERCOCET 10) TABLET PO PRN (15:35)
[2019-06-09] MEDS: MONTELUKAST 10 MG (SINGULAIR) TAB PO SCH (22:13)
[2019-06-09] MEDS: ATORVASTATIN 80 MG (LIPITOR) TABLET PO SCH (22:13)
[2019-06-10 04:45] VITALS: BP 101/57
[2019-06-10] MEDS: FUROSEMIDE 40 MG/4 ML INJ (LASIX) IV SCH ×2 (06:09→16:33)
[2019-06-10] MEDS: CATHETER FLUSH 10 ML SYR IV SCH ×3 (06:10→20:41)
[2019-06-10] MEDS: predniSONE 10 MG TAB PO SCH (06:10)
[2019-06-10] MEDS: PANTOPRAZOLE 40 MG (PROTONIX) TAB PO SCH (06:10)
--- NOTE | 2019-06-10 06:27 | Pulmonary Progress Note ---
Subjective Time Seen by a Provider: 06:27 Subjective/Events-last exam No complications noted. Sepsis Event Evaluation Height, Weight, BMI Height: 6'0.00" Weight: 295lbs. 14.4oz. 134.235745kg; 39.2 BMI Method:Stated Exam Exam Vital Signs Date Time Temp Pulse Resp B/P (MAP) Pulse Ox O2 Delivery O2 Flow Rate FiO2 06/09/19 23:18 98.2 55 22 103/64 (77) 95 Nasal Cannula 3.50 06/09/19 20:00 High Flow N/C 15.00 06/09/19 19:29 99.2 69 20 103/53 (70) 90 Nasal Cannula 3.50 06/09/19 18:59 79 High Flow N/C 4.00 06/09/19 16:04 98.2 65 18 104/51 (68) 98 Nasal Cannula 06/09/19 14:32 92 High Flow N/C 5.00 06/09/19 12:00 97.9 65 24 117/58 (77) 91 Vapotherm 60.00 25.00 06/09/19 10:06 95 High Flow N/C 10.00 06/09/19 10:06 65 95 06/09/19 08:00 Vapotherm 15.00 60 06/09/19 08:00 98.1 74 22 127/58 (81) 98 Vapotherm 60.00 25.00 06/09/19 07:11 94 High Flow N/C 15.00 06/09/19 06:59 94 Vapotherm 25.00 60 I & O 06/10/19 07:00 Intake Total 2910 ml Output Total 5650 ml Balance -2740 ml Height & Weight Height: 6'0.00" Weight: 295lbs. 14.4oz. 134.968544jl; 39.2 BMI Method:Stated General Appearance: No Apparent Distress, WD/WN, Chronically ill, Obese HEENT: PERRL/EOMI, Normal ENT Inspection, Pharynx Normal, Moist Mucous Membranes Neck: Full Range of Motion, Normal Inspection, Non Tender Respiratory: Chest Non Tender, Accessory Muscle Use Cardiovascular: Regular Rate, Rhythm, No Edema, No Gallop, No JVD, No Murmur, Normal Peripheral Pulses Capillary Refill: Less Than 3 Seconds Gastrointestinal: non tender, soft Extremity: Normal Capillary Refill, Normal Inspection, Normal Range of Motion, Non Tender, No Calf Tenderness, No Pedal Edema Neurologic/Psychiatric: Alert, Oriented x3, No Motor/Sensory Deficits, Normal Mood/Affect, 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 CHFAE/ischemic cardiomyopathy EF 35-40% -Lasix - Continue Tobacco use -Education Anemia CAD Chronic LBBB pattern Laryngeal CA dx 2017 -Treated with radiation per Dr. Eubanks and followed by CARMELO Lewis DO Jun 10, 2019 06:27
[2019-06-10] MEDS: RT-ALBUTEROL/IPRATROPIUM 3 ML (DUONEB) VIAL INH SCH ×4 (07:32→21:50)
[2019-06-10 08:00] VITALS: BP 103/55
[2019-06-10] MEDS: lisINopril 40 MG (PRINIVIL) TABLET PO SCH (08:06)
[2019-06-10] MEDS: POLYETHYLENE GLYCOL 17 GM (MIRALAX) PACK PO SCH ×2 (08:07→20:40)
[2019-06-10] MEDS: CLOPIDOGREL 75 MG (PLAVIX) TABLET PO SCH (08:07)
[2019-06-10] MEDS: CARVEDILOL 12.5 MG (COREG) TABLET PO SCH ×2 (08:07→20:40)
[2019-06-10] MEDS: ASPIRIN 81 MG CHEW (CHILDREN'S ASA) PO SCH (08:07)
--- NOTE | 2019-06-10 09:09 | Physical Therapy Progress Note ---
Therapy Progress Note Patient is up independently in room and declined continued PT. Patient reports he is at his baseline. PT to dismiss patient from services at this time. JARVIS CUMMINGS PT Jun 10, 2019 09:09
[2019-06-10 12:00] VITALS: BP 102/51
--- NOTE | 2019-06-10 12:36 | Progress Note - Hospitalist ---
Subjective HPI/CC On Admission Date Seen by Provider: Jun 10, 2019 Time Seen by Provider: 12:32 CC: Dyspnea with AECHF HPI: This is a 63yoWM clinic patient of Dr Lopez who has a h/o CHF and COPD and continues to smoke who presented to the ER with increasing dyspnea and found to have fluid overload and hypoxia requiring admit with Vapotherm to maintain sats. Hgb is 8.5 having some bloody stools in the ER so Dr. Robertson is consulted and he will need an endoscopy once he is stabilized Wants to be off Vapotherm Denies any other significant pain Consulted Dr. Steele Appreciate Dr. Daniel on CHF management Asked for Miralax so I ordered that Checked meds and labs Subjective/Events-last exam Patient reports he feels like he is just about back to baseline from a breathing standpoint. Still has a mild cough nonproductive. He reports his bowels moved yesterday with no evidence for melena or bright red blood. He denies abdominal pain or chest pain. He reports significant improvement in anasarca. Objective Exam Vital Signs Vital Signs Date Time Temp Pulse Resp B/P (MAP) Pulse Ox O2 Delivery O2 Flow Rate FiO2 06/10/19 10:41 92 High Flow N/C 4.00 06/10/19 08:00 97.5 62 18 103/55 (71) 06/09/19 08:00 60 Capillary Refill : Less Than 3 Seconds General Appearance: No Apparent Distress, WD/WN, Chronically ill, Obese HEENT: PERRL/EOMI Neck: Full Range of Motion, Normal Inspection, Non Tender Respiratory: Chest Non Tender, No Accessory Muscle Use, Other (No wheezing rales or rhonchi noted.) Cardiovascular: Regular Rate, Rhythm, No Gallop, No JVD, No Murmur Gastrointestinal: Normal Bowel Sounds, No Organomegaly, No Pulsatile Mass, Non Tender, Soft Extremity: Normal Range of Motion, Non Tender, No Calf Tenderness, Pedal Edema (One plus to the mid tibia bilaterally no inflammatory changes noted.) Neurologic/Psychiatric: Alert, Oriented x3, Normal Mood/Affect Skin: Normal Color, Warm/Dry Results/Procedures Lab Patient resulted labs reviewed. Assessment/Plan Assessment and Plan Assess & Plan/Chief Complaint A/P 1. Acute COPD exacerbation improved significantly continue steroid taper a nd bronchodilator therapy. Defer discharge to Dr. Steele. 2. Acute on chronic systolic and diastolic heart failure aggravated by lack of diuretic therapy and number 1 much improved with resumption of furosemide continue. 3. Coronary artery disease with ischemic cardiomyopathy ejection fraction reportedly 35-40 percent on echo last week. Clinical Quality Measures DVT/VTE Risk/Contraindication: Risk Factor Score Per Nursin RFS Level Per Nursing on Admit: 4+=Very High DA AMES MD Jun 10, 2019 12:36
--- NOTE | 2019-06-10 13:40 | Cardiology Progress Note ---
Cardiology SOAP Progress Note Subjective: improved shortness of breath. Objective: I&O/Vital Signs 06/10/19 06/10/19 06/10/19 06/10/19 04:45 07:40 08:00 10:41 Temp 97.8 97.5 Pulse 57 62 Resp 20 18 B/P (MAP) 101/57 (72) 103/55 (71) Pulse Ox 93 92 92 92 O2 Delivery High Flow N/C High Flow N/C Nasal Cannula High Flow N/C O2 Flow Rate 15.00 4.00 4.00 06/10/19 00:00 Intake Total 2910 ml Output Total 5650 ml Balance -2740 ml Weight (Pounds): 295 Weight (Ounces): 14.4 Weight (Calculated Kilograms): 134.282693 Constitutional: AAO x 3, well-developed, well-nourished Respiratory: No accessory muscle use, No respiratory distress; chest expansion is symmetric, chest is bilaterally symmetric, rhonchi (scattered), other (coarse lung sounds) Cardiovascular: regular rate-rhythm, S1 and S2, systolic murmur Gastrointestional: No tender; round, audible bowel sounds Extremities: No normal range of motion, No non-tender, No normal inspection, No pedal edema, No calf tenderness, No normal capillary refill, No pelvis stable, No calf tenderness, No inflammation, No pedal edema, No slow capillary refill, No swelling, No other, No abrasion, No clubbing, No cyanosis, No ecchymosis, No laceration, No no lower extremity edema bilateral; significant edema (bilat LE swelling 3(+)); No tenderness, No wound Neurologic/Psychiatric: no motor/sensory deficits, alert, normal mood/affect, oriented x 3, grossly intact, power is 5/5 both on sides Skin: No rash, No ulcerations Results/Procedures: Labs Laboratory Tests 06/09/19 17:00: Stool Occult Blood Immunoassay NEGATIVE A/P: Assessment/Dx: Multifactorial dyspnea: acute on chronic systolic CHF, acute exacerbation of C OPD, obesity-hypoventilation syndrome, anemia of undetermined etiology, improved shortness of breath. 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 Has intermittent hypoxia for which he is on prn oxygen Obesity with obesity-hypoventilation syndrome Anemia of undetermined etiology - suspected GI bleed S/p removal of L-sided ICD and associated leads for device pocket infection in Dec 2013. He now has new leads and a new R-sided device that was placed in Dec 2013, functioning normally per interrogation of May 31, 2019 Coronary artery disease artery disease. Last cath was on 04/26/18. It showed severe prox disease of LA that was stented with Alp Xience 4x15. In the mid LAD there were patent overlapping stents ([employer]ator [employer] [id number] [employer]ator [employer] 3x24) and the 1st OM of LCX had a patent stent (Promus James 3.5x12). The RCA was dominant with mild plaques. LVEF was 40% there was anteroapical hypokinesis and mild elev of LVEDP Echo of 06/06/19: LVEF 35-40%, mod dilatation of LA, RVSP 40 mmHg Chronic LBBB pattern H/o labile bp Hyperlipidemia, being treated with statin therapy. Glucose intolerance. Chronic bilateral lower extremity edema Chronic back pain for which he has been taking hydrocodone. CT spine of 02/05/17 (Dr Bolivar) has shown lumbar spondylosis and foraminal narrowing Mild AAA, measuring 3.6 cm nahum, along with mod stenosis of the R common iliac artery, on CT angio of 02/10/17 Chronic tobacco use - cessation advised Mild bilat carotid art disease on u/s of February 2013 on u/s of 03/30/17 (R ICA not well-visualized on carotid u/s of 03/30/17) Laryngeal CA diagnosed (Jul 2018) treated with radiation per Dr. Eubanks and followed by Dr. Muñoz Plan: * Complex management due to multiple comorbidities * Treat with diuretics * Monitor labs * Advised immediate and complete smoking cessation * If EF drops below 35%, consider upgrade of ICD to biV device Thank you for your consultation. Please call me if you have any questions. Glenda Daniel MD, FACP, FACC, FSCAI, FHRS, CCDS Interventional Cardiology Cardiac Electrophysiology Vascular Medicine and Endovascular Interventions Shukri DANIEL MD Jun 10, 2019 13:40
--- NOTE | 2019-06-10 14:43 | Progress Note - Surgery ---
Subjective Date Seen by a Provider: Jun 10, 2019 Time Seen by a Provider: 12:33 Subjective/Events-last exam patient breathing continued to improve he states. No abdominal pain. Not having any blood or melena in stool. Patient tolerating diet. Denies any new complaints. Denies any fever sweats chills or chest pain. Objective Exam Vital Signs Date Time Temp Pulse Resp B/P (MAP) Pulse Ox O2 Delivery O2 Flow Rate FiO2 06/10/19 12:00 98.0 59 18 102/51 (68) 93 Nasal Cannula 06/10/19 10:41 92 High Flow N/C 4.00 06/10/19 08:00 97.5 62 18 103/55 (71) 92 Nasal Cannula 06/10/19 07:40 92 High Flow N/C 4.00 06/10/19 04:45 97.8 57 20 101/57 (72) 93 High Flow N/C 15.00 06/09/19 23:18 98.2 55 22 103/64 (77) 95 Nasal Cannula 3.50 06/09/19 20:00 High Flow N/C 15.00 06/09/19 19:29 99.2 69 20 103/53 (70) 90 Nasal Cannula 3.50 06/09/19 18:59 79 High Flow N/C 4.00 06/09/19 16:04 98.2 65 18 104/51 (68) 98 Nasal Cannula I & O 06/10/19 07:00 Intake Total 4110 ml Output Total 6050 ml Balance -1940 ml Capillary Refill : Less Than 3 Seconds General Appearance: No Apparent Distress, WD/WN, Chronically ill, Obese HEENT: PERRL/EOMI Neck: Full Range of Motion, Normal Inspection, Non Tender Respiratory: Chest Non Tender, No Accessory Muscle Use, No Respiratory Distress, Other (No wheezing rales or rhonchi noted.) Cardiovascular: Regular Rate, Rhythm, No Gallop, No JVD, No Murmur Gastrointestinal: non tender, soft Extremity: Normal Range of Motion, Non Tender, No Calf Tenderness, Pedal Edema Neurologic/Psychiatric: Alert, Oriented x3, Normal Mood/Affect, 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 Patient would benefit from endoscopy but to do outpatient versus inpatient once more pressing issues improved. Will follow, no surgical intervention at this time. On protonix patient with no dark or tarry or bloody stools.on Plavix and aspirin would prefer to be off 5 days prior to endoscopy so since stable be best outpatient. Clinical Quality Measures DVT/VTE Risk/Contraindication: Risk Factor Score Per Nursin RFS Level Per Nursing on Admit: 4+=Very High STEPHAN SPARKS DO Jun 10, 2019 14:43
[2019-06-10 16:00] VITALS: BP 107/58
[2019-06-10] MEDS: oxyCODONE/APAP 10/325MG (PERCOCET 10) TABLET PO PRN (16:32)
[2019-06-10 20:00] VITALS: BP 103/55
[2019-06-10] MEDS: ATORVASTATIN 80 MG (LIPITOR) TABLET PO SCH (20:40)
[2019-06-10] MEDS: MONTELUKAST 10 MG (SINGULAIR) TAB PO SCH (20:40)
[2019-06-11] VITALS: BP 95/53
[2019-06-11 04:00] VITALS: BP 100/57
[2019-06-11 05:34] LABS: HEMOGLOBIN 9.1 G/DL (13.3-17.7); MEAN PLATELET VOLUME 10.5 FL (7.4-10.4); RED CELL DISTRIBUTION WIDTH 19.4 % (10.0-14.5); WHITE BLOOD COUNT 9.8 10^3/uL (4.3-11.0)
[2019-06-11 05:48] LABS: BUN/CREATININE RATIO 44; CALCIUM 8.5 MG/DL (8.5-10.1); CARBON DIOXIDE 29 MMOL/L (21-32); CHLORIDE 94 MMOL/L (98-107); GFR ESTIMATED > 60; GLUCOSE 111 MG/DL (70-105); POTASSIUM 4.2 MMOL/L (3.6-5.0); SODIUM 135 MMOL/L (135-145)
[2019-06-11] MEDS: FUROSEMIDE 40 MG/4 ML INJ (LASIX) IV SCH (06:28)
[2019-06-11] MEDS: CATHETER FLUSH 10 ML SYR IV SCH ×3 (06:28→21:56)
[2019-06-11] MEDS: predniSONE 10 MG TAB PO SCH (06:28)
[2019-06-11] MEDS: PANTOPRAZOLE 40 MG (PROTONIX) TAB PO SCH (06:28)
--- NOTE | 2019-06-11 07:18 | Pulmonary Progress Note ---
Subjective Time Seen by a Provider: 07:17 Subjective/Events-last exam No complications noted. Sepsis Event Evaluation Height, Weight, BMI Height: 6'0.00" Weight: 295lbs. 14.4oz. 134.220931gv; 39.2 BMI Method:Stated Exam Exam Vital Signs Date Time Temp Pulse Resp B/P (MAP) Pulse Ox O2 Delivery O2 Flow Rate FiO2 06/11/19 04:00 97.8 63 16 100/57 (71) 93 Nasal Cannula 3.50 06/11/19 00:00 98.0 64 18 95/53 (67) 94 Nasal Cannula 3.50 06/10/19 21:50 90 High Flow N/C 4.00 06/10/19 20:00 High Flow N/C 4.00 06/10/19 20:00 98.5 72 22 103/55 (71) 91 Nasal Cannula 3.50 06/10/19 16:00 98.6 61 18 107/58 (74) 95 Nasal Cannula 06/10/19 15:14 91 High Flow N/C 4.00 06/10/19 12:00 98.0 59 18 102/51 (68) 93 Nasal Cannula 06/10/19 10:41 92 High Flow N/C 4.00 06/10/19 08:00 97.5 62 18 103/55 (71) 92 Nasal Cannula 06/10/19 08:00 Nasal Cannula 4.00 06/10/19 07:40 92 High Flow N/C 4.00 I & O 06/11/19 07:00 Intake Total 2530 ml Output Total 5800 ml Balance -3270 ml Height & Weight Height: 6'0.00" Weight: 295lbs. 14.4oz. 134.220819ir; 39.2 BMI Method:Stated General Appearance: No Apparent Distress, WD/WN, Chronically ill, Obese HEENT: PERRL/EOMI, Normal ENT Inspection, Pharynx Normal, Moist Mucous Membranes Neck: Full Range of Motion, Normal Inspection, Non Tender Respiratory: Chest Non Tender, Accessory Muscle Use Cardiovascular: Regular Rate, Rhythm, No Edema, No Gallop, No JVD, No Murmur, Normal Peripheral Pulses Capillary Refill: Less Than 3 Seconds Gastrointestinal: non tender, soft Extremity: Normal Capillary Refill, Normal Inspection, Normal Range of Motion, Non Tender, No Calf Tenderness, No Pedal Edema Neurologic/Psychiatric: Alert, Oriented x3, No Motor/Sensory Deficits, Normal Mood/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 Eubanks and followed by CARMELO Lewis DO Jun 11, 2019 07:18
[2019-06-11] MEDS: RT-ALBUTEROL/IPRATROPIUM 3 ML (DUONEB) VIAL INH SCH ×4 (07:29→22:22)
[2019-06-11 08:00] VITALS: BP 86/49
[2019-06-11] MEDS: CLOPIDOGREL 75 MG (PLAVIX) TABLET PO SCH (08:09)
[2019-06-11] MEDS: ASPIRIN 81 MG CHEW (CHILDREN'S ASA) PO SCH (08:09)
[2019-06-11] MEDS: CARVEDILOL 12.5 MG (COREG) TABLET PO SCH ×2 (08:09→21:56)
[2019-06-11] MEDS: lisINopril 40 MG (PRINIVIL) TABLET PO SCH (08:10)
[2019-06-11] MEDS: POLYETHYLENE GLYCOL 17 GM (MIRALAX) PACK PO SCH ×2 (08:11→21:56)
[2019-06-11 08:47] VITALS: BP 107/52
--- NOTE | 2019-06-11 11:33 | Progress Note - Hospitalist ---
Subjective HPI/CC On Admission Date Seen by Provider: Jun 11, 2019 Time Seen by Provider: 09:00 CC: Dyspnea with AECHF HPI: This is a 63yoWM clinic patient of Dr Lopez who has a h/o CHF and COPD and continues to smoke who presented to the ER with increasing dyspnea and found to have fluid overload and hypoxia requiring admit with Vapotherm to maintain sats. Hgb is 8.5 having some bloody stools in the ER so Dr. Robertson is consulted and he will need an endoscopy once he is stabilized Wants to be off Vapotherm Denies any other significant pain Consulted Dr. Ivette Daniel on CHF management Asked for Miralax so I ordered that Checked meds and labs Subjective/Events-last exam Patient reports feeling better denies lightheadedness with transfers or windedness the bathroom and back mild cough no significant sputum production. He denies night sweats chills or fever. Objective Exam Vital Signs Vital Signs Date Time Temp Pulse Resp B/P (MAP) Pulse Ox O2 Delivery O2 Flow Rate FiO2 06/11/19 11:18 92 High Flow N/C 4.00 06/11/19 08:47 61 107/52 (70) 06/11/19 08:00 97.0 18 06/09/19 08:00 60 Capillary Refill : Less Than 3 Seconds General Appearance: No Apparent Distress, WD/WN, Chronically ill, Obese HEENT: Moist Mucous Membranes Respiratory: Chest Non Tender, No Accessory Muscle Use, No Respiratory Distress, Other (Few scattered rhonchi no wheezes or rales noted.) Cardiovascular: Regular Rate, Rhythm, No Edema, No Gallop, No JVD, No Murmur, Normal Peripheral Pulses Extremity: Non Tender, No Calf Tenderness Neurologic/Psychiatric: Alert, Normal Mood/Affect Skin: Normal Color, Warm/Dry Lymphatic: No Adenopathy Results/Procedures Lab Laboratory Tests 06/11/19 05:24 Patient resulted labs reviewed. Assessment/Plan Assessment and Plan Assess & Plan/Chief Complaint A/P 1. Acute COPD exacerbation improved significantly continue steroid taper and bronchodilator therapy. Likely discharge in a.m. 2. Acute on chronic systolic and diastolic heart failure aggravated by lack of diuretic therapy and number 1 much improved. Blood pressures low normal BUS up to 48 we'll DC IV Lasix and switch to 80 by mouth every morning daily. 3. Coronary artery disease with ischemic cardiomyopathy ejection fraction reportedly 35-40 percent on echo last week. Clinical Quality Measures DVT/VTE Risk/Contraindication: Risk Factor Score Per Nursin RFS Level Per Nursing on Admit: 4+=Very High DA AMES MD Jun 11, 2019 11:33
[2019-06-11] MEDS: oxyCODONE/APAP 10/325MG (PERCOCET 10) TABLET PO PRN (14:42)
--- NOTE | 2019-06-11 15:06 | Cardiology Progress Note ---
Cardiology SOAP Progress Note Subjective: Slow improvement in shortness of breath. Objective: I&O/Vital Signs 06/11/19 06/11/19 06/11/19 06/11/19 04:00 07:29 08:00 08:00 Temp 97.8 97.0 Pulse 63 68 Resp 16 18 B/P (MAP) 100/57 (71) () Pulse Ox 93 92 90 O2 Delivery Nasal Cannula High Flow N/C High Flow N/C Nasal Cannula O2 Flow Rate 3.50 4.00 4.00 06/11/19 06/11/19 08:47 11:18 Pulse 61 B/P (MAP) 107/52 (70) Pulse Ox 92 O2 Delivery High Flow N/C O2 Flow Rate 4.00 06/11/19 00:00 Intake Total 2430 ml Output Total 4500 ml Balance -2070 ml Weight (Pounds): 295 Weight (Ounces): 14.4 Weight (Calculated Kilograms): 134.865938 Constitutional: AAO x 3, well-developed, well-nourished Respiratory: No accessory muscle use, No respiratory distress; chest expansion is symmetric, chest is bilaterally symmetric, rhonchi (scattered), other (coarse lung sounds) Cardiovascular: regular rate-rhythm, S1 and S2, systolic murmur Gastrointestional: No tender; round, audible bowel sounds Extremities: No normal range of motion, No non-tender, No normal inspection, No pedal edema, No calf tenderness, No normal capillary refill, No pelvis stable, No calf tenderness, No inflammation, No pedal edema, No slow capillary refill, No swelling, No other, No abrasion, No clubbing, No cyanosis, No ecchymosis, No laceration, No no lower extremity edema bilateral; significant edema (bilat LE swelling 3(+)); No tenderness, No wound Neurologic/Psychiatric: no motor/sensory deficits, alert, normal mood/affect, oriented x 3, grossly intact, power is 5/5 both on sides Skin: No rash, No ulcerations Results/Procedures: Labs Laboratory Tests 06/11/19 05:24: White Blood Count 9.8, Red Blood Count 3.66L, Hemoglobin 9.1L, Hematocrit 31L, Mean Corpuscular Volume 85, Mean Corpuscular Hemoglobin 25, Mean Corpuscular Hemoglobin Concent 29L, Red Cell Distribution Width 19.4H, Platelet Count 240, Mean Platelet Volume 10.5H, Sodium Level 135, Potassium Level 4.2, Chloride Level 94L, Carbon Dioxide Level 29, Anion Gap 12, Blood Urea Nitrogen 48H, Creatinine 1.10, Estimat Glomerular Filtration Rate > 60, BUN/Creatinine Ratio 44, Glucose Level 111H, Calcium Level 8.5 A/P: Assessment/Dx: Multifactorial dyspnea: acute on chronic systolic CHF, acute exacerbation of COPD, obesity-hypoventilation syndrome, anemia of undetermined etiology, improved shortness of breath. 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 Has intermittent hypoxia for which he is on prn oxygen Obesity with obesity-hypoventilation syndrome Anemia of undetermined etiology - suspected GI bleed S/p removal of L-sided ICD and associated leads for device pocket infection in Dec 2013. He now has new leads and a new R-sided device that was placed in Dec 2013, functioning normally per interrogation of May 31, 2019 Coronary artery disease artery disease. Last cath was on 04/26/18. It showed severe prox disease of LA that was stented with Alp Xience 4x15. In the mid LAD there were patent overlapping stents (Side Seam Machine Operator [id number] Side Seam Machine Operator 3x24) and the 1st OM of LCX had a patent stent (Promus James 3.5x12). The RCA was dominant with mild plaques. LVEF was 40% there was anteroapical hypokinesis and mild elev of LVEDP Echo of 06/06/19: LVEF 35-40%, mod dilatation of LA, RVSP 40 mmHg Chronic LBBB pattern H/o labile bp Hyperlipidemia, being treated with statin therapy. Glucose intolerance. Chronic bilateral lower extremity edema Chronic back pain for which he has been taking hydrocodone. 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 Eubanks and followed by Dr. Muñoz Plan: * Complex management due to multiple comorbidities * Treat with diuretics * Monitor labs * Advised immediate and complete smoking cessation * If EF drops below 35%, consider upgrade of ICD to biV device Thank you for your consultation. Please call me if you have any questions. Glenda Daniel MD, FACP, FACC, FSCAI, FHRS, CCDS Interventional Cardiology Cardiac Electrophysiology Vascular Medicine and Endovascular Interventions Shukri DANIEL MD Jun 11, 2019 3:06 pm
--- NOTE | 2019-06-11 15:28 | Progress Note - Surgery ---
Subjective Date Seen by a Provider: Jun 11, 2019 Time Seen by a Provider: 08:12 Subjective/Events-last exam patient improving he states. possibly home tomorrow he states. not having any dark or bloody stools. hgb improving. denies any abdominal pain. denies fever sweats chills or chest pain. Objective Exam Vital Signs Date Time Temp Pulse Resp B/P (MAP) Pulse Ox O2 Delivery O2 Flow Rate FiO2 06/11/19 11:18 92 High Flow N/C 4.00 06/11/19 08:47 61 107/52 (70) 06/11/19 08:00 97.0 68 18 () 90 Nasal Cannula 06/11/19 08:00 High Flow N/C 4.00 06/11/19 07:29 92 High Flow N/C 4.00 06/11/19 04:00 97.8 63 16 100/57 (71) 93 Nasal Cannula 3.50 06/11/19 00:00 98.0 64 18 95/53 (67) 94 Nasal Cannula 3.50 06/10/19 21:50 90 High Flow N/C 4.00 06/10/19 20:00 High Flow N/C 4.00 06/10/19 20:00 98.5 72 22 103/55 (71) 91 Nasal Cannula 3.50 06/10/19 16:00 98.6 61 18 107/58 (74) 95 Nasal Cannula I & O 06/11/19 07:00 Intake Total 2530 ml Output Total 5800 ml Balance -3270 ml Capillary Refill : Less Than 3 Seconds General Appearance: No Apparent Distress, WD/WN, Chronically ill, Obese HEENT: Moist Mucous Membranes Respiratory: Chest Non Tender, No Accessory Muscle Use, No Respiratory Distress Cardiovascular: Regular Rate, Rhythm, Normal Peripheral Pulses Gastrointestinal: non tender, soft Extremity: Non Tender, No Calf Tenderness Neurologic/Psychiatric: Alert, Normal Mood/Affect Skin: Normal Color, Warm/Dry Lymphatic: No Adenopathy Results Lab Laboratory Tests 06/11/19 05:24: White Blood Count 9.8, Red Blood Count 3.66L, Hemoglobin 9.1L, Hematocrit 31L, Mean Corpuscular Volume 85, Mean Corpuscular Hemoglobin 25, Mean Corpuscular Hemoglobin Concent 29L, Red Cell Distribution Width 19.4H, Platelet Count 240, Mean Platelet Volume 10.5H, Sodium Level 135, Potassium Level 4.2, Chloride Level 94L, Carbon Dioxide Level 29, Anion Gap 12, Blood Urea Nitrogen 48H, Creatinine 1.10, Estimat Glomerular Filtration Rate > 60, BUN/Creatinine Ratio 44, Glucose Level 111H, Calcium Level 8.5 Assessment/Plan Assessment/Plan Assessment/Plan Anemia, melena, Dyspnea, COPD acute exacerbation, congestive heart failure Transfuse packed red blood cells as needed. Patient would benefit from endoscopy but to do outpatient versus inpatient once more pressing issues improved. Will follow, no surgical intervention at this time. On protonix patient with no dark or tarry or bloody stools.on Plavix and aspirin would prefer to be off 5 days prior to endoscopy so since stable be best outpatient. will sign off call if needed will have follow up in 2 weeks. Clinical Quality Measures DVT/VTE Risk/Contraindication: Risk Factor Score Per Nursin RFS Level Per Nursing on Admit: 4+=Very High STEPHAN SPARKS DO Jun 11, 2019 15:28
[2019-06-11 15:39] VITALS: BP 93/51
[2019-06-11 19:10] VITALS: BP 115/54
[2019-06-11] MEDS: ATORVASTATIN 80 MG (LIPITOR) TABLET PO SCH (21:56)
[2019-06-11] MEDS: MONTELUKAST 10 MG (SINGULAIR) TAB PO SCH (21:56)
[2019-06-12] VITALS: BP 100/58
[2019-06-12 04:00] VITALS: BP 91/52
[2019-06-12] MEDS: PANTOPRAZOLE 40 MG (PROTONIX) TAB PO SCH (06:30)
[2019-06-12] MEDS: predniSONE 10 MG TAB PO SCH (06:30)
[2019-06-12] MEDS: CATHETER FLUSH 10 ML SYR IV SCH ×2 (06:32→14:00)
[2019-06-12] MEDS: oxyCODONE/APAP 10/325MG (PERCOCET 10) TABLET PO PRN (06:32)
[2019-06-12] MEDS: RT-ALBUTEROL/IPRATROPIUM 3 ML (DUONEB) VIAL INH SCH ×3 (07:05→15:19)
--- NOTE | 2019-06-12 07:16 | NUR ---
When RT entered the patients room, he was on 5 L hifl NC and satting 90%. SVN Breathing treatment was given at this time and his O2 sat went up.
--- NOTE | 2019-06-12 07:44 | Pulmonary Progress Note ---
Sepsis Event Evaluation Height, Weight, BMI Height: 6'0.00" Weight: 295lbs. 14.4oz. 134.234338qb; 39.2 BMI Method:Stated Exam Exam Vital Signs Date Time Temp Pulse Resp B/P (MAP) Pulse Ox O2 Delivery O2 Flow Rate FiO2 06/12/19 07:05 90 High Flow N/C 5.00 06/12/19 04:00 97.2 57 16 91/52 (65) 95 Nasal Cannula 4.00 06/12/19 00:00 97.9 56 20 100/58 (72) 94 Nasal Cannula 4.00 06/11/19 22:22 94 High Flow N/C 4.00 06/11/19 20:00 High Flow N/C 4.00 06/11/19 19:10 98.3 63 20 115/54 (74) 94 Nasal Cannula 4.00 06/11/19 15:39 97.7 62 18 93/51 (65) 94 Nasal Cannula 4.00 06/11/19 15:24 91 High Flow N/C 4.00 06/11/19 11:18 92 High Flow N/C 4.00 06/11/19 08:47 61 107/52 (70) 06/11/19 08:00 97.0 68 18 () 90 Nasal Cannula 06/11/19 08:00 High Flow N/C 4.00 I & O 06/12/19 07:00 Intake Total 3160 ml Output Total 4600 ml Balance -1440 ml Height & Weight Height: 6'0.00" Weight: 295lbs. 14.4oz. 134.444896yr; 39.2 BMI Method:Stated General Appearance: No Apparent Distress, WD/WN, Chronically ill, Obese HEENT: PERRL/EOMI, Normal ENT Inspection, Pharynx Normal, Moist Mucous Membranes Neck: Full Range of Motion, Normal Inspection, Non Tender Respiratory: Chest Non Tender, Accessory Muscle Use Cardiovascular: Regular Rate, Rhythm, No Edema, No Gallop, No JVD, No Murmur, Normal Peripheral Pulses Capillary Refill: Less Than 3 Seconds Gastrointestinal: non tender, soft Extremity: Normal Capillary Refill, Normal Inspection, Normal Range of Motion, Non Tender, No Calf Tenderness, No Pedal Edema Neurologic/Psychiatric: Alert, Oriented x3, No Motor/Sensory Deficits, Normal Mood/Affect, storekeeper steward II-XII Norm as Tested Skin: Normal Color, Warm/Dry Lymphatic: No Adenopathy Results Lab Laboratory Tests 06/11/19 05:24 Assessment/Plan Assessment/Plan COPDAE -- Doubt PNA -SVNS -NC -prednisone taper -C02 48 Obesity hypoventilation syndrome -BiPAP QHS CHFAE/ischemic cardiomyopathy EF 35-40% -Lasix Tobacco use -Education Anemia CAD Chronic LBBB pattern Laryngeal CA dx 2017 -Treated with radiation per Dr. Eubanks and followed by CARMELO Lewis DO Jun 12, 2019 07:44
[2019-06-12] MEDS: lisINopril 40 MG (PRINIVIL) TABLET PO SCH (07:58)
[2019-06-12] MEDS: ASPIRIN 81 MG CHEW (CHILDREN'S ASA) PO SCH (07:59)
[2019-06-12] MEDS: POLYETHYLENE GLYCOL 17 GM (MIRALAX) PACK PO SCH (07:59)
[2019-06-12] MEDS: CLOPIDOGREL 75 MG (PLAVIX) TABLET PO SCH (07:59)
[2019-06-12] MEDS: CARVEDILOL 12.5 MG (COREG) TABLET PO SCH (07:59)
--- NOTE | 2019-06-12 08:58 | Diagnostic Imaging Report ---
INDICATION: Cough an shortness of breath. TIME OF EXAM: 8:18 AM Correlation is made with prior chest from 06/08/2019. FINDINGS: The heart is enlarged, but stable. Cardiac defibrillator remains in place. There are trace bilateral pleural effusions. Mild central congestive changes without overt failure are again noted. There is no pneumothorax. IMPRESSION: Stable chest since exam 4 days earlier. Dictated by: Dictated on workstation # [id number]
[2019-06-12] MEDS ORDERED: FUROSEMIDE 40 MG (LASIX) TAB PO SCH (09:00)
--- NOTE | 2019-06-12 09:42 | Discharge Summary ---
Diagnosis/Chief Complaint Date of Admission Jun 06, 2019 at 12:33 pm Date of Discharge Discharge Date: Jun 12, 2019 Admission Diagnosis Assessment: Respiratory insufficiency acute AECOPD AECHF Elevated BNP GIB Anemia HLP Plan: Vapotherm María Byers, Ailyn consultation Needs scope after resp status is stable Discharge Diagnosis (1) Acute on chronic heart failure Status: Acute (2) COPD (chronic obstructive pulmonary disease) Status: Chronic (3) Hypoventilation syndrome Status: Chronic (4) Ischemic cardiomyopathy Status: Chronic (5) VIJI (obstructive sleep apnea) Status: Chronic (6) HTN (hypertension) Status: Chronic (7) Obesity Status: Chronic (8) CAD (coronary artery disease) Status: Chronic (9) GI bleed Status: Acute (10) Transfusion of blood during current hospitalization Status: Acute Discharge Summary Procedures/Consulations Dr Daniel- Cardiology Dr Steele- Pulm Dr Robertson- Surgery Discharge Physical Exam Allergies: Coded Allergies: quinine (Verified Allergy, Unknown, 06/06/19) Vitals & I&Os Vital Signs Date Time Temp Pulse Resp B/P (MAP) Pulse Ox O2 Delivery O2 Flow Rate FiO2 06/12/19 11:36 92 High Flow N/C 3.00 06/12/19 04:00 97.2 57 16 91/52 (65) 06/09/19 08:00 60 General Appearance: No Apparent Distress, WD/WN, Obese Respiratory: Lungs Clear, No Respiratory Distress Cardiovascular: Regular Rate, Rhythm, No Murmur Hospital Course Pt was admitted for COPD exacerbation. He was treated with steroids and Duonebs. He had an uneventful hospital stay. There was likely decompensated heart failure as well and cardiology was consulted for assistance with management. He was discharged home in stable condition at his request. He reports a need of 5-15lpm supplement oxygen with exertion at baseline and here his needs were consistent but at rest he needed 4lpm. I called and updated Sukh Cao SPOTLIGHT OPERATOR at Dr Alcaraz's office of this and they will see him within one week. He was continued on prednisone taper. Labs (last 24 hrs) Patient resulted labs reviewed. Discussion & Recommendations Discharge Planning: >30 minutes discharge planning Discharge Home Medications: Active Scripts Active Proair Hfa (Albuterol Sulfate) 1 Puff Puff 2 Puff IH Q4H PRN 1 PUFF = 90 MCG Prednisone 10 Mg Tab.ds.pk 10 Mg PO DAILY Take 4 tabs(40mg)daily,decrease by 1 tab(10mg)every other day. Reported Klor-Con M20 (Potassium Chloride) 20 Meq Tab.er.prt 20 Meq PO BID PRN Oxycodone-Acetaminophen 10-325 (Oxycodone HCl/Acetaminophen) 1 Each Tablet 1 Tab PO Q6H PRN Tramadol HCl 50 Mg Tablet 50 Mg PO TID PRN Aspirin EC (Aspirin) 81 Mg Tablet.dr 81 Mg PO DAILY Furosemide 80 Mg Tablet 80 Mg PO BID PRN LAST FILLED #60 02-02-19 Carvedilol 25 Mg Tablet 25 Mg PO BID LAST FILLED #180 02-23-19 Plavix (Clopidogrel Bisulfate) 75 Mg Tablet 75 Mg PO DAILY LAST FILLED #90 01-07-19 Atorvastatin Calcium 80 Mg Tablet 80 Mg PO HS LAST FILLED #90 02-23-19 Montelukast Sodium 10 Mg Tablet 10 Mg PO 1900 Lisinopril 40 Mg Tablet 40 Mg PO DAILY LAST FILLED #90 01-07-19 Instructions to patient/family Please see electronic discharge instructions given to patient. Clinical Quality Measures DVT/VTE Risk/Contraindication: Risk Factor Score Per Nursin RFS Level Per Nursing on Admit: 4+=Very High Copy Copies To 1: ROBERT ALCARAZ MD Problem Qualifiers (1) Acute on chronic heart failure: Heart failure type: unspecified Qualified Codes: I50.9 - Heart failure, unspecified (2) COPD (chronic obstructive pulmonary disease): COPD type: COPD with acute exacerbation Qualified Codes: J44.1 - Chronic obstructive pulmonary disease with (acute) exacerbation (3) HTN (hypertension): Hypertension type: essential hypertension Qualified Codes: I10 - Essential (primary) hypertension (4) Obesity: Obesity type: due to excess calories Obesity classification: adult class 2 (BMI 35 - 39.9) Serious obesity comorbidity presence: with serious comorbidity Body mass index: BMI 39.0-39.9 Qualified Codes: E66.01 - Morbid (severe) obesity due to excess calories; Z68.39 - Body mass index (bmi) 39.0-39.9, adult (5) CAD (coronary artery disease): Coronary Disease-Associated Artery/Lesion type: [place] artery [place] vs. transplanted heart: [place] heart Associated angina: with stable angina Qualified Codes: I25.118 - Atherosclerotic heart disease of [place] coronary artery with other forms of angina pectoris (6) GI bleed: GI bleed type/associated pathology: unspecified gastrointestinal hemorrhage type Qualified Codes: K92.2 - Gastrointestinal hemorrhage, unspecified RUIZ APODACA MD Jun 12, 2019 9:42 am
[2019-06-12] MEDS ORDERED: PRED10TA22 PO (09:48)
[2019-06-12] MEDS ORDERED: RT-ALBUINH IH (09:48)
--- NOTE | 2019-06-12 11:32 | NUR ---
Patient was on 5 L NC and satting 95% at rest; patients O2 was removed for 3 mins and O2 sat dropped to 86% so O2 was placed on patient and it took 3 L to get patient back up to 90%; RT started the patients 6 min walk on 3 L at the start of the walk patient was 89-90%, Patient continued to walk and kept desatting so RT increased O2 slowly to 5 L and O2 got down to 81%; O2 had to be increased up to 12 L to get patients O2 sat up to 89-90%. After walk patient recovered and was placed on 3 L NC and O2 sat ended up being 92% at rest. At rest patient is requiring 3 L NC and on exertion patient is requiring 12 L NC
--- NOTE | 2019-06-12 11:52 | NUR ---
CM/SS spoke with the patient for discharge planning. Patient is requiring his baseline amounts of oxygen. His son will be transportation and will bring portable oxygen when comes for transport.
--- NOTE | 2019-06-12 13:20 | Discharge Inst-Simple/Standard ---
Discharge Inst-Standard Patient Instructions/Follow Up Plan of Care/Instructions/FU: Please continue to take your medications as written. Please follow up with Dr Lopez and Dr Encarnacion as scheduled. Activity as Tolerated: Yes Discharge Diet: No Restrictions Return to The Hospital For: SHortness of breath, chest pain, fever, confusion, if you feel you are getting worse. RUIZ APODACA MD Jun 12, 2019 1:20 pm
--- NOTE | 2019-06-12 17:45 | Cardiology Progress Note ---
Cardiology SOAP Progress Note Subjective: Gradually improving shortness of breath. Objective: I&O/Vital Signs 06/12/19 06/12/19 06/12/19 06/12/19 07:05 08:35 11:05 11:36 Pulse Ox 90 95 92 O2 Delivery High Flow N/C High Flow N/C High Flow N/C O2 Flow Rate 5.00 4.00 5.00 3.00 06/12/19 15:19 Pulse Ox 92 O2 Delivery High Flow N/C O2 Flow Rate 3.00 06/12/19 00:00 Intake Total 2960 ml Output Total 4000 ml Balance -1040 ml Weight (Pounds): 295 Weight (Ounces): 14.4 Weight (Calculated Kilograms): 134.889478 Constitutional: AAO x 3, well-developed, well-nourished Respiratory: No accessory muscle use, No respiratory distress; chest expansion is symmetric, chest is bilaterally symmetric, rhonchi (scattered), other (coarse lung sounds) Cardiovascular: regular rate-rhythm, S1 and S2, systolic murmur Gastrointestional: No tender; round, audible bowel sounds Extremities: No normal range of motion, No non-tender, No normal inspection, No pedal edema, No calf tenderness, No normal capillary refill, No pelvis stable, No calf tenderness, No inflammation, No pedal edema, No slow capillary refill, No swelling, No other, No abrasion, No clubbing, No cyanosis, No ecchymosis, No laceration, No no lower extremity edema bilateral; significant edema (bilat LE swelling 3(+)); No tenderness, No wound Neurologic/Psychiatric: no motor/sensory deficits, alert, normal mood/affect, oriented x 3, grossly intact, power is 5/5 both on sides Skin: No rash, No ulcerations A/P: Assessment/Dx: Multifactorial dyspnea: acute on chronic systolic CHF, acute exacerbation of COPD, obesity-hypoventilation syndrome, anemia of undetermined etiology, improved shortness of breath. 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 Has intermittent hypoxia for which he is on prn oxygen Obesity with obesity-hypoventilation syndrome Anemia of undetermined etiology - suspected GI bleed S/p removal of L-sided ICD and associated leads for device pocket infection in Dec 2013. He now has new leads and a new R-sided device that was placed in Dec 2013, functioning normally per interrogation of May 31, 2019 Coronary artery disease artery disease. Last cath was on 04/26/18. It showed severe prox disease of LA that was stented with Alp Xience 4x15. In the mid LAD there were patent overlapping stents (Photo Machine Operator [id number] Photo Machine Operator 3x24) and the 1st OM of LCX had a patent stent (Promus James 3.5x12). The RCA was dominant with mild plaques. LVEF was 40% there was anteroapical hypokinesis and mild elev of LVEDP Echo of 06/06/19: LVEF 35-40%, mod dilatation of LA, RVSP 40 mmHg Chronic LBBB pattern H/o labile bp Hyperlipidemia, being treated with statin therapy. Glucose intolerance. Chronic bilateral lower extremity edema Chronic back pain for which he has been taking hydrocodone. CT spine of 02/05/17 (Dr Bolivar) has shown lumbar spondylosis and foraminal narrowing Mild AAA, measuring 3.6 cm nahum, along with mod stenosis of the R common iliac a rtery, on CT angio of 02/10/17 Chronic tobacco use - cessation advised Mild bilat carotid art disease on u/s of February 2013 on u/s of 03/30/17 (R ICA not well-visualized on carotid u/s of 03/30/17) Laryngeal CA diagnosed (Jul 2018) treated with radiation per Dr. Eubanks and followed by Dr. Muñoz Plan: * Complex management due to multiple comorbidities * Treat with diuretics * Monitor labs * Advised immediate and complete smoking cessation * If EF drops below 35%, consider upgrade of ICD to biV device Thank you for your consultation. Please call me if you have any questions. Glenda Daniel MD, FACP, FACC, FSCAI, FHRS, CCDS Interventional Cardiology Cardiac Electrophysiology Vascular Medicine and Endovascular Interventions Shukri DANIEL MD Jun 12, 2019 5:45 pm
[2019-06-12 17:47] VITALS: BP 91/52
== END 2019-06-12 17:48 | disposition home or self-care (01) | DRG 190 ==
LOC: EDUNIT# 10:23 → ER 10:25 → ICU 12:33 → 4TH 06-07 08:47
PROVIDERS: ADMIT Internal Medicine; ATTEND Internal Medicine
DX: J44.1 Chronic obstructive pulmonary disease with (acute) exacerbation (principal); I11.0 Hypertensive heart disease with heart failure; I50.23 Acute on chronic systolic (congestive) heart failure; I25.5 Ischemic cardiomyopathy; K92.1 Melena; E66.2 Morbid (severe) obesity with alveolar hypoventilation; Z68.41 Body mass index [BMI] 40.0-44.9, adult; R09.02 Hypoxemia; D64.9 Anemia, unspecified; F17.210 Nicotine dependence, cigarettes, uncomplicated; C32.9 Malignant neoplasm of larynx, unspecified; J30.2 Other seasonal allergic rhinitis; I44.7 Left bundle-branch block, unspecified; N40.0 Benign prostatic hyperplasia without lower urinary tract symptoms; M19.91 Primary osteoarthritis, unspecified site; G62.9 Polyneuropathy, unspecified; E78.5 Hyperlipidemia, unspecified; I25.118 Atherosclerotic heart disease of native coronary artery with other forms of angina pectoris; E74.39 Other disorders of intestinal carbohydrate absorption; M54.9 Dorsalgia, unspecified; I71.4 Abdominal aortic aneurysm, without rupture; I70.8 Atherosclerosis of other arteries; I65.23 Occlusion and stenosis of bilateral carotid arteries; I25.2 Old myocardial infarction; Z95.5 Presence of coronary angioplasty implant and graft; Z95.810 Presence of automatic (implantable) cardiac defibrillator; Z99.81 Dependence on supplemental oxygen; Z99.3 Dependence on wheelchair
CPT/HCPCS: 36415; 36600; 71045; 71046; 80048; 80053; 82274; 82805; 83735; 83880; 84484; 85025; 85027; 86850; 86900; 86901; 86920; 93005; 93041; 93306; 94640; 94760; 94761; 96374

== ENCOUNTER → 2019-06-21 | Outpatient (CLI) | payer OTHER ==
[~2019-06-21] MED LIST changes: +OXYC-465 PO; +POTA20TA8 PO; +PRED10TA22 PO; +RT-ALBUINH IH; +TRAM50TA2 PO
== END ==
LOC: EDSTATUS 03-15 15:03 → ONC 15:04
PROVIDERS: ATTEND Radiology Radiation Oncology
DX: C32.1 Malignant neoplasm of supraglottis (principal); I25.10 Atherosclerotic heart disease of native coronary artery without angina pectoris; I10 Essential (primary) hypertension; J44.9 Chronic obstructive pulmonary disease, unspecified; K21.9 Gastro-esophageal reflux disease without esophagitis; Z87.891 Personal history of nicotine dependence; Z79.02 Long term (current) use of antithrombotics/antiplatelets; Z79.899 Other long term (current) drug therapy
CPT/HCPCS: 99213

== ENCOUNTER → 2019-12-25 | Outpatient (CLI) | payer BC, OTHER ==
[~2019-12-25] MED LIST changes: -TIZA2TAB3 PO; +TIZA2TAB4 PO; -TRAM50TA2 PO; +TRM50T PO
--- NOTE | 2019-12-25 11:41 | Diagnostic Imaging Report ---
INDICATION: Abdominal aortic aneurysm. FINDINGS: Study is severely compromised due to patient body habitus and bowel interference. The aorta could not be visualized. IMPRESSION: Nonvisualized aorta. CT would be recommended to evaluate abdominal aortic aneurysm. Dictated by: Dictated on workstation # [id number]
== END ==
LOC: RAD 09:00
PROVIDERS: ATTEND Internal Medicine Cardiovascular Disease
DX: I71.4 Abdominal aortic aneurysm, without rupture (principal); I11.0 Hypertensive heart disease with heart failure; I50.22 Chronic systolic (congestive) heart failure; J44.9 Chronic obstructive pulmonary disease, unspecified; I25.10 Atherosclerotic heart disease of native coronary artery without angina pectoris; E78.5 Hyperlipidemia, unspecified; I44.69 Other fascicular block; I25.5 Ischemic cardiomyopathy; G47.33 Obstructive sleep apnea (adult) (pediatric); Z87.19 Personal history of other diseases of the digestive system
CPT/HCPCS: 76775

== ENCOUNTER → 2020-06-10 | Outpatient (CLI) | payer BC ==
[~2020-06-10] MED LIST changes: +ACHD5005 PO; +CEPH500T PO; +CETI10CA PO; -HYDR-3812 PO; -MONT10TA24 PO; +MONT10TA26 PO; -NIAC500T5 PO; +RT-ALBUINH INH; -TIZA2TAB4 PO; +TIZA2TAB7 PO; +[UNRECOGNIZED DRUG - CODE] PO
--- NOTE | 2020-06-10 08:48 | Diagnostic Imaging Report ---
INDICATION: Abdominal aortic aneurysm. TECHNIQUE: Grayscale sonographic images of the abdominal aorta. CORRELATION STUDY: 12/25/2019 FINDINGS: This is a very limited examination. The abdominal aorta is not well-visualized. Largely attributed to overlying bowel gas and patient's body habitus. Abdominal Aorta Proximal: Not visualized Mid: Approximately 1.8 x 1.7 cm Distal: Approximately 1.9 cm Common Iliac Arteries Right JUAN: Not visualized Left JUAN: Not visualized IMPRESSION: 1. Very Limited and incomplete assessment of the abdominal aorta. Visualized segments demonstrated no aneurysm. However, segments are not able to be adequately assessed on this study. 2. There has been previous non-ultrasound imaging demonstrating a abdominal aortic aneurysm up to 4 cm in size. Given this, consideration for CT imaging would be recommended for assessment of the abdominal aorta. Dictated by: Dictated on workstation # [id number]
== END ==
LOC: RAD 07:20
PROVIDERS: ATTEND Internal Medicine Cardiovascular Disease
DX: I71.4 Abdominal aortic aneurysm, without rupture (principal); I65.23 Occlusion and stenosis of bilateral carotid arteries
CPT/HCPCS: 76775

== ENCOUNTER 2020-06-11 09:35 | Emergency (ER) | payer BC ==
[~2020-06-11] VITALS: Ht 182.8 cm; Wt 127.2 kg
[~2020-06-11 09:35] MED LIST changes: -CEPH500T PO; -HEParin (CATH LAB) 0 ML IV ONE; -LIDOCAINE 1% INJ 20 ML 20 ML VIAL ONE; -NS IV 1000 ML 1,000 ML IV SCH; -NS IV 1000 ML 1,000 ML ONE
[2020-06-11] MEDS ORDERED: NS IV 1000 ML 1,000 ML IV SCH (09:53)
[2020-06-11] MEDS ORDERED: CEPHALEXIN 250 MG (KEFLEX) CAP PO ONE (10:00)
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
[2020-06-11] MEDS ORDERED: CEPH500T PO (10:06)
--- NOTE | 2020-06-11 10:16 | NUR ---
WOUND CARE APPOINTMENT MADE FOR TOMMOJULIANNE AT 1241
[2020-06-11] MEDS ORDERED: oxyCODONE/APAP 5/325MG (PERCOCET 5) TABLET PO ONE (10:45)
[2020-06-11 11:27] VITALS: BP 101/63
[2020-06-11 12:24] LABS: BASOPHILS % (AUTO) 0 % (0-10); EOSINOPHILS # (AUTO) 0.3 10^3/uL (0.0-0.3); EOSINOPHILS % (AUTO) 4 % (0-10); HEMATOCRIT 37 % (40-54); HEMOGLOBIN 12.3 G/DL (13.3-17.7); LYMPHOCYTES # (AUTO) 0.8 X 10^3 (1.0-4.0); LYMPHOCYTES % (AUTO) 12 % (12-44); MEAN CORPUSCULAR HEMOGLOBIN 34 PG (25-34); MEAN CORPUSCULAR HGB CONC 34 G/DL (32-36); MEAN CORPUSCULAR VOLUME 100 FL (80-99); MEAN PLATELET VOLUME 9.9 FL (7.4-10.4); MONOCYTES # (AUTO) 0.6 X 10^3 (0.0-1.0); MONOCYTES % (AUTO) 8 % (0-12); NEUTROPHILS # (AUTO) 5.5 X 10^3 (1.8-7.8); NEUTROPHILS % (AUTO) 76 % (42-75); PLATELET COUNT 156 10^3/uL (130-400); RED CELL DISTRIBUTION WIDTH 13.7 % (10.0-14.5); WHITE BLOOD COUNT 7.3 10^3/uL (4.3-11.0)
[2020-06-11 12:36] LABS: CALCIUM 8.1 MG/DL (8.5-10.1)
[2020-06-11 12:41] LABS: CREATININE SERUM 1.87 MG/DL (0.60-1.30)
[2020-06-11 13:15] VITALS: BP 100/56
--- NOTE | 2020-06-11 13:15 | NUR ---
SOME OF PATIENT SYSTOLIC READINGS ARE IN THE 80'S AND 90'S PATINT REPORTS THAT IS NORMAL FOR HIM. DR PENA CALLED AND TALKED WITH DR ENOCH MCLEAN WITH HIS B/P WILL ADJUST SOME MEDS.
== END 2020-06-11 13:36 | disposition home or self-care (01) ==
LOC: EDUNIT# 09:35 → ER 09:35
DX: E86.1 Hypovolemia (principal); E87.8 Other disorders of electrolyte and fluid balance, not elsewhere classified; L97.211 Non-pressure chronic ulcer of right calf limited to breakdown of skin; I25.2 Old myocardial infarction; I25.10 Atherosclerotic heart disease of native coronary artery without angina pectoris; I10 Essential (primary) hypertension; G62.9 Polyneuropathy, unspecified; J44.9 Chronic obstructive pulmonary disease, unspecified; Z95.5 Presence of coronary angioplasty implant and graft; Z88.8 Allergy status to other drugs, medicaments and biological substances; Z85.21 Personal history of malignant neoplasm of larynx; Z87.891 Personal history of nicotine dependence; Z79.82 Long term (current) use of aspirin; Z79.891 Long term (current) use of opiate analgesic
CPT/HCPCS: 36415; 80048; 85025

== ENCOUNTER → 2020-06-11 | Day surgery (SDC) | payer BC ==
[~2020-06-11] VITALS: Ht 152 cm; Wt 127.0 kg
[~2020-06-11] MED LIST changes: +HEParin (CATH LAB) 0 ML IV ONE; +LIDOCAINE 1% INJ 20 ML 20 ML VIAL ONE; +NS IV 1000 ML 1,000 ML IV SCH; +NS IV 1000 ML 1,000 ML ONE
--- OUTSIDE RECORDS SUMMARY | 2020-06-11 07:33 | XMS REPORT | Continuity of Care Document ---
Author Author LipperheyCHHAYA Organization [facility] Address Unknown Phone Unavailable Care Team Providers Care Patternmaker Bench Name Role Phone [facility] Unavailable Unavailable Problems Problem Status Onset Date Classification Date Reported Comments Source Chronic low back pain 08/10/2017 Diagnosis 08/10/2017 [facility] Medications Medication Details Route Status Patient Instructions Ordering Provider Order Date Source atorvastatin 80 mg tablet ator vastatin 80 mg tablet Active [facility] azithromycin 250 mg tablet ed thromycin 250 mg tablet Active [facility] carvedilol 25 mg tablet carved ilol 25 mg tablet Active [facility] clopidogrel 75 mg tablet clopi dogrel 75 mg tablet Active [facility] furosemide 80 mg tablet furose mide 80 mg tablet Active [facility] Klor-Con M20 mEq tablet,extended release Klor-Con M20 mEq tablet,extended release Active [facility] lisinopril 40 mg tablet lisino pril 40 mg tablet Active [facility] metolazone 5 mg tablet metolaz one 5 mg tablet Active [facility] oxycodone-acetaminophen 10 mg-325 mg tablet oxycodone- acetaminophen 10 mg-325 mg tablet Active [facility] tramadol 50 mg tablet tramadol 50 mg tablet Active [facility] Allergies, Adverse Reactions, Alerts No Known Medication Allergies Immunizations No Data Provided for This Section Results Order Name Results Value Reference Range Date Interpretation Comments Source [facility] Pathology Reports No Data Provided for This Section Diagnostic Reports No Data Provided for This Section Consultation Notes No Data Provided for This Section Discharge Summaries No Data Provided for This Section History and Physicals No Data Provided for This Section Vital Signs No Data Provided for This Section Encounters Location Location Details Encounter Type Encounter Number Reason For Visit Attending Provider ADM Date DC Date Status Source [place] [employer] [facility] Jus Pinedo MD: [address] [place] [address], [address], [place] [address], Ph. [phone] [id number] Jus Pinedo 08/10/2017 [facility] Procedures Procedure Code Date Perfomer Comments Source [facility] Plan of Care Plan of Care Date Source Reminders Provider Appointments None recorded. Lab None recorded. Referral None recorded. Procedures None recorded. Surgeries None recorded. Imaging None recorded. 08/10/2017 [facility] Social History No Data Provided for This Section Assessment and Plan No Data Provided for This Section Family History No Data Provided for This Section Advance Directives No Data Provided for This Section Functional Status No Data Provided for This Section
--- OUTSIDE RECORDS SUMMARY | 2020-06-11 07:33 | XMS REPORT ---
Author Organization Unknown Address [address] [place] [address] Phone [phone] Care Team Providers Care Mental Health Assistant Name Role Phone Dr. Jean-Claude Lopez 4 [phone] Reason for Visit None recorded. Assessment and Plan The following list includes any diagnoses that were discussed at your visit. 1. Chronic low back pain Discussion Note: None recorded. Patient educational handouts: No information available. Plan of Care Reminders Provider Appointments None recorded. Lab None recorded. Referral None recorded. Procedures None recorded. Surgeries None recorded. Imaging None recorded. Current Medications Your medical record indicates you are on the following medicine. If this list is not consistentwith the medications you are currently taking, or if you are taki ng additional [id number] medicines, pleaseinform your provider. Name Prescribed Date Start Date atorvastatin 80 mg tablet azithromycin 250 mg tablet carvedilol 25 mg tablet clopidogrel 75 mg tablet furosemide 80 mg tablet Klor-Con M20 mEq tablet,extended release lisinopril 40 mg tablet metolazone 5 mg tablet oxycodone-acetaminophen 10 mg-325 mg tablet tramadol 50 mg tablet Medications Administered None recorded. Vitals None recorded. Lab Results None recorded. Allergies Please review your allergy list for accuracy. Contact your provider if this list needs to be updated. None recorded. Problems None recorded. Procedures None recorded. Vaccine List Here is a copy of your most up-to-date vaccination list. None recorded. Smoking Status None recorded. Past Encounters 08/10/2017 Chronic Low Back Pain Jus Pinedo MD: [address] [place] [address], [address], [place] [address], Ph. [phone]
--- OUTSIDE RECORDS SUMMARY | 2020-06-11 07:34 | XMS REPORT ---
Author Author Osiel VELAZCO Organization [facility] Address [address] [place] [address] Care Team Providers Care Manager Field Sales Name Role Phone SAMEER VELAZCO Unavailable PROBLEMS Unknown Problems ALLERGIES No Information ENCOUNTERS Encounter Location Date Diagnosis [facility] [id number] [place] [id number] Sep, Dental caries K02.9 [facility] [id number] [place] [id number] Aug, Dental examination Z01.20 [facility] [address] [place] [id number] Apr, IMMUNIZATIONS No Known Immunizations SOCIAL HISTORY Never Assessed REASON FOR VISIT PLAN OF CARE VITAL SIGNS MEDICATIONS No Known Medications RESULTS No Results PROCEDURES No Known procedures INSTRUCTIONS MEDICATIONS ADMINISTERED No Known Medications MEDICAL (GENERAL) HISTORY Type Description Date Medical History High Blood pressure Medical History Heart Diease Medical History Heart attack Medical History Cardiac pacemaker Medical History COPD Medical History Blood Thinner Medical History Back trouble Surgical History Heart cath 2 stints 2009 Surgical History Pacemaker Placed 2011 Surgical History Pacemaker removed 2012 Surgical History New pacemaker placed 2014 Surgical History Injections on back 2014 Surgical History Heart Cath and stint placed 2014 Hospitalization History Heart Attack 2009 Hospitalization History Pace maker Infected 2012 Hospitalization History Heart Cath 2014
--- OUTSIDE RECORDS SUMMARY | 2020-06-11 07:35 | XMS REPORT | Continuity of Care Document ---
Author Organization Unknown Address Unknown Phone Unavailable Allergies Active Description Code Type Severity Reaction Onset Reported/Identified Relationship to Patient Clinical Status Yes quinine [id number] Drug Allergy Unknown N/A 06/06/2019 Medications There is no data. Problems Date Dx Coded Attending Type Code Diagnosis Diagnosed By 02/09/2012 Ot 272.4 HYPE RLIPIDEMIA NEC/NOS 02/09/2012 Ot 401.9 HYPE RTENSION NOS 02/09/2012 Ot 412 OLD MY OCARDIAL INFARCT 02/09/2012 Ot 413.9 ANAYELI NA PECTORIS NEC/NOS 02/09/2012 Ot 414.01 COR ONARY ATHEROSCLEROSIS OF [place] CORON 02/09/2012 Ot 425.4 PRIM CARDIOMYOPATHY NEC 02/09/2012 Ot 786.09 RES PIRATORY ABNORM NEC 02/09/2012 Ot V45.82 PER CUTANEOUS TRANSLUM CORON ANGIOPLASTY 02/09/2012 Ot V58.63 MARTIN G- TERM(CURRENT)USE OF ANTIPLATELET/AN 02/09/2012 Ot V58.66 MARTIN G-TERM (CURRENT) USE OF ASPIRIN 02/09/2012 Ot V58.69 OTH MED,LT,CURRENT USE 05/05/2012 Ot 724.2 LUMBAGO 10/14/2012 Ot 271.3 DISA CCHARIDASE DEF/MALAB 10/14/2012 Ot 272.4 HYPE RLIPIDEMIA NEC/NOS 10/14/2012 Ot 276.7 HYPE RPOTASSEMIA 10/14/2012 Ot 278.00 OBE SITY, NOS 10/14/2012 Ot 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 10/14/2012 Ot 403.90 HYP TNSV CHR KID DIS, UNSPEC, W CHR KD ST 10/14/2012 Ot 414.01 COR ONARY ATHEROSCLEROSIS OF [place] CORON 10/14/2012 Ot 414.8 CHR ISCHEMIC HRT DIS NEC 10/14/2012 Ot 496 CHR AI RWAY OBSTRUCT NEC 10/14/2012 Ot 571.8 JEWEL BEARING TURNER BRIELLE LIVER DIS NEC 10/14/2012 Ot 585.9 JEWEL BEARING TURNER BRIELLE KIDNEY DISEASE, UNSPECIFIED 10/14/2012 Ot 715.90 OST EOARTHROS NOS- UNSPEC 10/14/2012 Ot 724.5 BACK ACHE NOS 10/14/[address] PAIN NEC 10/14/2012 Ot 790.5 ABN SERUM ENZY LEVEL NEC 10/14/2012 Ot V45.82 PER CUTANEOUS TRANSLUM CORON ANGIOPLASTY 10/14/2012 Ot V85.41 BOD Y MASS INDEX 40.0-44.9, ADULT 01/18/2015 ENOCH HENSONC, ALI FACP CCDS Ot 996.61 01/18/2015 ENOCH HENSONC, ALI FACP CCDS Ot E878.1 01/18/2015 ENOCH HENSONC, ALI FACP CCDS Ot 996.61 01/18/2015 ENOCH HENSONC, ALI FACP CCDS Ot E878.1 01/23/2015 Ot 996.61 01/23/2015 Ot E878.1 08/07/2015 ENOCH HENSONC, ALI FACP CCDS Ot 996.61 08/07/2015 ENOCH CARL FACC, ALI FACP CCDS Ot E878.1 08/12/2015 ARI ACRL, TIMOTEO Sanchez Ot 722. 52 08/21/2015 ENOCH HENSONC, ALI FACP CCDS Ot 271.3 08/21/2015 ENOCH CARL FACC, ALI FACP CCDS Ot 272.4 08/21/2015 ENOCH [...] FACP CCDS Ot V58.69 08/21/2015 ENOCH CARL [facility], ALI FAC CCDS Ot V85.41 08/21/2015 LISSA CARL, ROBERT Bryant Ot 496 10/16/2016 Ot 272.4 HYPE RLIPIDEMIA NEC/NOS 10/16/2016 Ot 401.9 HYPE RTENSION NOS 10/16/2016 Ot 413.9 ANAYELI NA PECTORIS NEC/NOS 10/16/2016 Ot 414.00 COR ON ATHEROSCLER NOS TYPE VESSEL, NATIV 10/16/2016 Ot 425.4 PRIM CARDIOMYOPATHY NEC 10/16/2016 Ot 786.05 SANDRA RTNESS OF BREATH 10/16/2016 Ot V58.63 MARTIN G- TERM(CURRENT)USE OF ANTIPLATELET/AN 10/16/2016 Ot V58.66 MARTIN G-TERM (CURRENT) USE OF ASPIRIN 10/16/2016 Ot V58.69 OTH MED,LT,CURRENT USE 10/16/2016 Ot V72.63 PRE -PROCEDURAL LABORATORY EXAMINATION 10/16/2016 Ot V72.81 BJOL-YSC-QUXIMKJAM CARDIOVASCULAR 10/16/2016 Ot 724.5 BACK ACHE NOS 10/21/2016 Ot 272.4 HYPE RLIPIDEMIA NEC/NOS 10/21/2016 Ot 401.9 HYPE RTENSION NOS 10/21/2016 Ot 413.9 ANAYELI NA PECTORIS NEC/NOS 10/21/2016 Ot 414.00 COR ON ATHEROSCLER NOS TYPE VESSEL, NATIV 10/21/2016 Ot 425.4 PRIM CARDIOMYOPATHY NEC 10/21/2016 Ot 786.05 SANDRA RTNESS OF BREATH 10/21/2016 Ot V58.63 MARTIN G- TERM(CURRENT)USE OF ANTIPLATELET/AN 10/21/2016 Ot V58.66 MARTIN G-TERM (CURRENT) USE OF ASPIRIN 10/21/2016 Ot V58.69 OTH MED,LT,CURRENT USE 10/21/2016 Ot V72.63 PRE -PROCEDURAL LABORATORY EXAMINATION 10/21/2016 Ot V72.81 PIVL-QDB-MHDTMPATG CARDIOVASCULAR 10/21/2016 Ot 724.5 BACK ACHE NOS 10/21/2016 ROBERT ALCARAZ MD Ot I51.7 CARDIOMEGALY 10/21/2016 ROBERT ALCARAZ MD Ot J90 PLEURAL EFFUSION, NOT ELSEWHERE CLASSIFI 10/21/2016 ROBERT ALCARAZ MD Ot J98.1 1 ATELECTASIS 10/28/2016 ENOCH CARL FACC, ALI FACP CCDS Ot E66.01 MORBID (SEVERE) OBESITY DUE TO EXCESS CA 10/28/2016 ENOCH CARL FACC, ALI FACP CCDS Ot E78.4 OTHER HYPERLIPIDEMIA 10/28/2016 ENOCH CARL FACC, ALI FACP CCDS Ot G47.33 OBSTRUCTIVE SLEEP APNEA (ADULT) (PEDIATR 10/28/2016 ENOCH CARL FACC, ALI FACP CCDS Ot I10 ESSENTIAL (PRIMARY) HYPERTENSION 10/28/2016 ENOCH CARL FACC, ALI FACP CCDS Ot I25.10 ATHSCL HEART DISEASE OF [place] CORONARY 10/28/2016 ENOCH CARL FACC, ALI FACP CCDS Ot I50.23 ACUTE ON CHRONIC SYSTOLIC (CONGESTIVE) H 10/28/2016 ENOCH CARL FACC, ALI FACP CCDS Ot R06.02 SHORTNESS OF BREATH 10/30/2016 ENOCH CARL FACC, ALI FACP CCDS Ot E66.01 MORBID (SEVERE) OBESITY DUE TO EXCESS CA 10/30/2016 ENOCH CARL FACC, JOSE CARLOS FACP CCDS Ot E78.4 OTHER HYPERLIPIDEMIA 10/30/2016 ENOCH CARL FACC, ALI FACP CCDS Ot G47.33 OBSTRUCTIVE SLEEP APNEA (ADULT) (PEDIATR 10/30/2016 ENOCH CARL FACC, ALI FACP CCDS Ot I11.0 HYPERTENSIVE HEART DISEASE WITH HEART FA 10/30/2016 ENOCH CARL FACC, ALI FACP CCDS Ot I25.10 ATHSCL HEART DISEASE OF [place] CORONARY 10/30/2016 ENOCH CARL FACC, ALI FACP [...] OBSTRUCTIVE SLEEP APNEA (ADULT) (PEDIATR 10/30/2016 ENOCH HENSONC, ALI FACP CCDS Ot I11.0 HYPERTENSIVE HEART DISEASE WITH HEART FA 10/30/2016 ENOCH CARL FACC, ALI FACP CCDS Ot I25.10 ATHSCL HEART DISEASE OF [place] CORONARY 10/30/2016 ENOCH CARL [place], ALI FACP CCDS Ot I50.23 ACUTE ON CHRONIC SYSTOLIC (CONGESTIVE) H 10/30/2016 ENOCH CARL FACC, ALI FACP CCDS Ot R06.02 SHORTNESS OF BREATH 11/18/2016 ROBERT ALCARAZ MD Ot I51.7 CARDIOMEGALY 11/18/2016 ROBERT ALCARAZ MD Ot J90 PLEURAL EFFUSION, NOT ELSEWHERE CLASSIFI 11/18/2016 ROBERT ALCARAZ MD Ot J98.1 1 ATELECTASIS 11/27/2016 ENOCH CARL FACC, ALI FACP [...] CCDS Ot I25.10 ATHSCL HEART DISEASE OF [place] CORONARY 11/27/2016 ENOCH CARL FACC, ALI FACP [...] OBSTRUCTIVE SLEEP APNEA (ADULT) (PEDIATR 11/27/2016 ENOCH HENSONC, ALI FACP CCDS Ot I11.0 HYPERTENSIVE HEART DISEASE WITH HEART FA 11/27/2016 ENOCH CARL FACC, ALI FACP CCDS Ot I25.10 ATHSCL HEART DISEASE OF [place] CORONARY 11/27/2016 ENOCH CARL FACC, ALI FACP CCDS Ot I50.23 ACUTE ON CHRONIC SYSTOLIC (CONGESTIVE) H 11/27/2016 ENOCH CARL FACC, ALI FACP CCDS Ot R06.02 SHORTNESS OF BREATH 12/15/2016 Ot 272.4 HYPE RLIPIDEMIA NEC/NOS 12/15/2016 Ot 401.9 HYPE RTENSION NOS 12/15/2016 Ot 413.9 ANAYELI NA PECTORIS NEC/NOS 12/15/2016 Ot 414.00 COR ON ATHEROSCLER NOS TYPE VESSEL, NATIV 12/15/2016 Ot 425.4 PRIM CARDIOMYOPATHY NEC 12/15/2016 Ot 786.05 SANDRA RTNESS OF BREATH 12/15/2016 Ot V58.63 MARTIN G- TERM(CURRENT)USE OF ANTIPLATELET/AN 12/15/2016 Ot V58.66 MARTIN G-TERM (CURRENT) USE OF ASPIRIN 12/15/2016 Ot V58.69 OTH MED,LT,CURRENT USE 12/15/2016 Ot V72.63 PRE -PROCEDURAL LABORATORY EXAMINATION 12/15/2016 Ot V72.81 BUMA-JNY-ECTLSFDCW CARDIOVASCULAR 12/15/2016 Ot 724.5 BACK ACHE NOS 12/15/2016 ENOCH CARL FACC, JOSE CARLOS FACP CCDS Ot E66.01 MORBID (SEVERE) OBESITY DUE TO EXCESS CA 12/15/2016 ENOCH CARL FACC, ALI FACP CCDS Ot E78.4 OTHER HYPERLIPIDEMIA 12/15/2016 ENOCH CARL FACC, ALI FACP CCDS Ot G47.33 OBSTRUCTIVE SLEEP APNEA (ADULT) (PEDIATR 12/15/2016 ENOCH CARL FACC, JOSE CARLOS FACP CCDS Ot I10 ESSENTIAL (PRIMARY) HYPERTENSION 12/15/2016 ENOCH CARL FACC, ALI FACP CCDS Ot I25.10 ATHSCL HEART DISEASE OF [place] CORONARY 12/15/2016 ENOCH CARL FACC, ALI FACP [...] WITH HEART FA 12/15/2016 ENOCH CARL FACC, JOSE CARLOS FACOrestes CCDS Ot I25.10 ATHSCL HEART DISEASE OF [place] CORONARY 12/15/2016 ENOCH CARL FACC, JOSE CARLOS FACP CCDS Ot I50.23 ACUTE ON CHRONIC SYSTOLIC (CONGESTIVE) H 12/15/2016 JOSE CARLOS KENDALL MD, FACC FACOrestes CCDS Ot R06.02 SHORTNESS OF BREATH 12/15/2016 ROBERT ALCARAZ MD Ot I51.7 CARDIOMEGALY 12/15/2016 ROBERT ALCARAZ MD Ot J90 PLEURAL EFFUSION, NOT ELSEWHERE CLASSIFI 12/15/2016 ROBERT ALCARAZ MD Ot J98.1 1 ATELECTASIS 12/21/2016 CARMELO DAVIS DO Ot E66. 01 MORBID (SEVERE) OBESITY DUE TO EXCESS CA 12/21/2016 CARMELO DAVIS DO Ot I25. 10 ATHSCL HEART DISEASE OF [place] CORONARY 12/21/2016 CARMELO DAVIS DO Ot I50. 22 CHRONIC SYSTOLIC (CONGESTIVE) HEART FAIL 12/21/2016 CARMELO DAVIS DO Ot J43. 8 OTHER EMPHYSEMA 12/21/2016 CARMELO DAVIS DO Ot R53. 83 OTHER FATIGUE 12/21/2016 CARMELO DAVIS DO Ot Z72. 0 TOBACCO USE 12/22/2016 Ot 272.4 HYPE RLIPIDEMIA NEC/NOS 12/22/2016 Ot 401.9 HYPE RTENSION NOS 12/22/2016 Ot 413.9 ANAYELI NA PECTORIS NEC/NOS 12/22/2016 Ot 414.00 COR ON ATHEROSCLER NOS TYPE VESSEL, NATIV 12/22/2016 Ot 425.4 PRIM CARDIOMYOPATHY NEC 12/22/2016 Ot 786.05 SANDRA RTNESS OF BREATH 12/22/2016 Ot V58.63 MARTIN G- TERM(CURRENT)USE OF ANTIPLATELET/AN 12/22/2016 Ot V58.66 MARTIN G-TERM (CURRENT) USE OF ASPIRIN 12/22/2016 Ot V58.69 OTH MED,LT,CURRENT USE 12/22/2016 Ot V72.63 PRE -PROCEDURAL LABORATORY EXAMINATION 12/22/2016 Ot V72.81 ERMS-FMD-QSLPWEAEA CARDIOVASCULAR 12/22/2016 Ot 724.5 BACK ACHE NOS 12/22/2016 ENOCH CARL FACC, JOSE CARLOS GARCAI CCDS Ot E66.01 MORBID (SEVERE) OBESITY DUE TO EXCESS CA 12/22/2016 ENOCH HENSON, ALI FACP CCDS Ot E78.4 OTHER HYPERLIPIDEMIA 12/22/2016 ENOCH CARL FACC, ALI FACP CCDS Ot G47.33 OBSTRUCTIVE SLEEP APNEA (ADULT) (PEDIATR 12/22/2016 ENOCH CARL FACC, ALI FACP CCDS Ot I10 ESSENTIAL (PRIMARY) HYPERTENSION 12/22/2016 ENOCH CARL FACC, ALI FACP CCDS Ot I25.10 ATHSCL HEART DISEASE OF [place] CORONARY 12/22/2016 ENOCH CARL FACC, ALI FACP CCDS Ot I50.23 ACUTE ON CHRONIC SYSTOLIC (CONGESTIVE) H 12/22/2016 ENOCH CARL FACC, ALI FACP CCDS Ot R06.02 SHORTNESS OF BREATH 12/22/2016 ENOCH CARL FACC, ALI FACP CCDS Ot E66.01 MORBID (SEVERE) OBESITY DUE TO EXCESS CA 12/22/2016 ENOCH HENSONC, ALI FACP CCDS Ot E78.4 OTHER HYPERLIPIDEMIA 12/22/2016 ENOCH CARL [facility], ALI FACP CCDS Ot G47.33 OBSTRUCTIVE SLEEP APNEA (ADULT) (PEDIATR 12/22/2016 ENOCH CARL [facility], ALI FACP CCDS Ot I11.0 HYPERTENSIVE HEART DISEASE WITH HEART FA 12/22/2016 ENOCH CARL FACC, ALI FACP CCDS Ot I25.10 ATHSCL HEART DISEASE OF [place] CORONARY 12/22/2016 ENOCH CARL FACC, ALI FACP CCDS Ot I50.23 ACUTE ON CHRONIC SYSTOLIC (CONGESTIVE) H 12/22/2016 ENOCH CARL FACC, ALI FACP CCDS Ot R06.02 SHORTNESS OF BREATH 12/22/2016 ROBERT ALCARAZ MD Ot I51.7 CARDIOMEGALY 12/22/2016 ROBERT ALCARAZ MD Ot J90 PLEURAL EFFUSION, NOT ELSEWHERE CLASSIFI 12/22/2016 ROBERT ALCARAZ MD Ot J98.1 1 ATELECTASIS 12/22/2016 CARMELO DAVIS DO Ot E66. 01 MORBID (SEVERE) OBESITY DUE TO EXCESS CA 12/22/2016 CARMELO DAVIS DO Ot I25. 10 ATHSCL HEART DISEASE OF [place] CORONARY 12/22/2016 CARMELO DAVIS DO Ot I50. 22 CHRONIC SYSTOLIC (CONGESTIVE) HEART FAIL 12/22/2016 CARMELO DAVIS DO Ot J43. 8 OTHER EMPHYSEMA 12/22/2016 RYAN CARMELO CHEATHAM Ot R53. 83 OTHER FATIGUE 12/22/2016 RYAN CARMELO CHEATHAM Ot Z72. 0 TOBACCO USE 12/23/2016 POOJA SURINDER Hightower ARMATURE WINDER Ot R06.02 SHORTNESS OF BREATH 12/25/2016 POOJAMARIENatasha Hightower ARMATURE WINDER Ot I25.10 ATHSCL HEART DISEASE OF [place] CORONARY 12/25/2016 POOJA SURINDER Hightower ARMATURE WINDER Ot I51.7 CARDIOMEGALY 12/25/2016 POOJAMARIENatasha Hightower ARMATURE WINDER Ot J 90 PLEURAL EFFUSION, NOT ELSEWHERE CLASSIFI 12/30/2016 POOJAMARIENatasha Hightower ARMATURE WINDER Ot I25.10 ATHSCL HEART DISEASE OF [place] CORONARY 12/30/2016 POOJA SURINDER Hightower ARMATURE WINDER Ot I51.7 CARDIOMEGALY 12/30/2016 POOJA SURINDER Hightower ARMATURE WINDER Ot J 90 PLEURAL EFFUSION, NOT ELSEWHERE CLASSIFI 01/01/2017 TIMOTEO CHAPMAN MD Ot M47.816 SPONDYLOSIS W/O MYELOPATHY OR RADICULOPA 01/01/2017 TIMOTEO CHAPMAN MD Ot M51. 16 INTERVERTEBRAL DISC DISORDERS W RADICULO 01/01/2017 TIMOTEO CHAPMAN MD Ot M53. 3 SACROCOCCYGEAL DISORDERS, NOT ELSEWHERE 01/01/2017 TIMOTEO CHAPMAN MD Ot Z79. 02 VEGETABLE TESTER (CURRENT) USE OF ANTITHROMBOTI 01/01/2017 TIMOTEO CHAPMAN MD Ot Z79.899 OTHER RESIDENTIAL (CURRENT) DRUG THERAPY 01/06/2017 TIMOTEO CHAPMAN MD Ot M47.816 SPONDYLOSIS W/O MYELOPATHY OR RADICULOPA 01/06/2017 TIMOTEO CHAPMAN MD, Ot M51. 16 INTERVERTEBRAL DISC DISORDERS W RADICULO 01/06/2017 TIMOTEO CHAPMAN MD Ot M53. 3 SACROCOCCYGEAL DISORDERS, NOT ELSEWHERE 01/06/2017 TIMOTEO CHAPMAN MD Ot Z79. 02 VEGETABLE TESTER (CURRENT) USE OF ANTITHROMBOTI 01/06/2017 TIMOTEO CHAPMAN MD, Ot Z79.899 OTHER VEGETABLE TESTER (CURRENT) DRUG THERAPY 02/08/2017 TIMOTEO CHAPMAN MD Ot M43. 06 SPONDYLOLYSIS, LUMBAR REGION 02/11/2017 ENOCH CARL FACC, JOSE CARLOS GARCIA CCDS Ot G47.33 OBSTRUCTIVE SLEEP APNEA (ADULT) (PEDIATR 02/11/2017 ENOCH MD FACC, ALI FACP CCDS Ot I25.10 ATHSCL HEART DISEASE OF [place] CORONARY 02/11/2017 ENOCH MD FACC, ALI FACP CCDS Ot I25.5 ISCHEMIC CARDIOMYOPATHY 02/11/2017 ENOCH MD FACC, ALI FACP CCDS Ot I50.23 ACUTE ON CHRONIC SYSTOLIC (CONGESTIVE) H 02/11/2017 ENOCH MD FACC, ALI FACP CCDS Ot I65.23 OCCLUSION AND STENOSIS OF BILATERAL [place] 02/11/2017 ENOCH MD FACC, ALI FACP CCDS Ot I70.0 ATHEROSCLEROSIS OF [place] 02/11/2017 ENOCH CARL FACC, ALI FACP CCDS Ot 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 02/11/2017 ENOCH CARL FACC, ALI FACP CCDS Ot J43.8 OTHER EMPHYSEMA 02/11/2017 ENOCH CARL FACC, ALI FACP CCDS Ot M54.5 LOW BACK PAIN 02/11/2017 ENOCH CARL FACC, ALI FACP CCDS Ot G47.33 OBSTRUCTIVE SLEEP APNEA (ADULT) (PEDIATR 02/11/2017 ENOCH MD FACC, ALI FACP CCDS Ot I25.10 ATHSCL HEART DISEASE OF [place] CORONARY 02/11/2017 ENOCH CARL FACC, ALI FACP [...] BACK PAIN 03/16/2017 WHIT MARCIAL DO Ot I71 .4 ABDOMINAL AORTIC ANEURYSM, WITHOUT RUPTU 03/16/2017 WHIT MARCIAL DO Ot M47.816 SPONDYLOSIS W/O MYELOPATHY OR RADICULOPA 03/16/2017 WHIT MARCIAL DO Shukri Ot M51.36 OTHER INTERVERTEBRAL DISC DEGENERATION, 03/17/2017 AGGIE DO WHIT Shukri Ot I71 .4 ABDOMINAL AORTIC ANEURYSM, WITHOUT RUPTU 03/17/2017 AGGIE DO WHIT Shukri Ot M47.816 SPONDYLOSIS W/O MYELOPATHY OR RADICULOPA 03/17/2017 AGGIE DO WHIT Shukri Ot M51.36 OTHER INTERVERTEBRAL DISC DEGENERATION, 12/08/2017 LISSA CARL, ROBERT Bryant Ot I50.9 HEART FAILURE, UNSPECIFIED 12/08/2017 ROBERT [...] CCDS Ot I25.10 ATHSCL HEART DISEASE OF [place] CORONARY 12/09/2017 ENOCH CARL FACC, ALI FACP CCDS Ot I50.23 ACUTE ON CHRONIC SYSTOLIC (CONGESTIVE) H 12/09/2017 ENOCH CARL FACC, ALI FACP CCDS Ot R06.02 SHORTNESS OF BREATH 12/09/2017 ENOCH CARL FACC, ALI FACP CCDS Ot E66.01 MORBID (SEVERE) OBESITY DUE TO EXCESS CA 12/09/2017 ENOCH CARL FACC, JOSE CARLOS FACP CCDS Ot E78.4 OTHER HYPERLIPIDEMIA 12/09/2017 ENOCH CARL FACC, ALI FACP CCDS Ot G47.33 OBSTRUCTIVE SLEEP APNEA (ADULT) (PEDIATR 12/09/2017 ENOCH CARL FACC, ALI FACP CCDS Ot I11.0 HYPERTENSIVE HEART DISEASE WITH HEART FA 12/09/2017 ENOCH CARL FACC, ALI FACP CCDS Ot I25.10 ATHSCL HEART DISEASE OF [place] CORONARY 12/09/2017 ENOCH CARL FACC, ALI FACP CCDS Ot I50.23 ACUTE ON CHRONIC SYSTOLIC (CONGESTIVE) H 12/09/2017 ENOCH MD FACC, ALI FACP CCDS Ot R06.02 SHORTNESS OF BREATH 12/09/2017 LISSA CARL, ROBERT Bryant Ot I51.7 CARDIOMEGALY 12/09/2017 LISSA CARL, ROBERT Bryant Ot J90 PLEURAL EFFUSION, NOT ELSEWHERE CLASSIFI 12/09/2017 LISSA CARL, ROBERT Bryant Ot J98.1 1 ATELECTASIS 12/09/2017 SURINDER PATTON ARMATURE WINDER Ot R06.02 SHORTNESS OF BREATH 12/09/2017 SURINDER PATTON ARMATURE WINDER Ot I25.10 ATHSCL HEART DISEASE OF [place] CORONARY 12/09/2017 SURINDER PATTON ARMATURE WINDER Ot I51.7 CARDIOMEGALY 12/09/2017 SURINDER PATTON ARMATURE WINDER Ot J 90 PLEURAL EFFUSION, NOT ELSEWHERE CLASSIFI 12/09/2017 ARI CARL, TIMOTEO Sanchez Ot M43. 06 SPONDYLOLYSIS, LUMBAR REGION 12/09/2017 ENOCH CARL FACC, ALI FACP CCDS Ot G47.33 OBSTRUCTIVE SLEEP APNEA (ADULT) (PEDIATR 12/09/2017 ENOCH CARL FACC, ALI FACP CCDS Ot I25.10 ATHSCL HEART DISEASE OF [place] CORONARY 12/09/2017 ENOCH CARL FACC, ALI FACP [...] CCDS Ot I25.10 ATHSCL HEART DISEASE OF [place] CORONARY 12/17/2017 ENOCH CARL FACC, ALI FACP CCDS Ot I25.2 OLD MYOCARDIAL INFARCTION 12/17/2017 ENOCH CARL FACC, ALI FACP CCDS Ot I25.5 ISCHEMIC CARDIOMYOPATHY 12/17/2017 ENOCH CARL FACC, ALI FACP CCDS Ot I50.22 CHRONIC SYSTOLIC (CONGESTIVE) HEART FAIL 12/17/2017 ENOCH CARL FACC, ALI FACP CCDS Ot J43.8 OTHER EMPHYSEMA 12/17/2017 ENOCH CARL FACC, ALI FACP CCDS Ot R06.02 SHORTNESS OF BREATH 12/17/2017 ENOCH CARL FACC, ALI FACP CCDS Ot R73.02 IMPAIRED GLUCOSE TOLERANCE (ORAL) 12/22/2017 ENOCH CARL FACC, ALI FACP CCDS Ot E66.8 OTHER OBESITY 12/22/2017 ENOCH CARL FACC, ALI FACP CCDS Ot G47.33 OBSTRUCTIVE SLEEP APNEA (ADULT) (PEDIATR 12/22/2017 ENOCH CARL FACC, ALI FACP CCDS Ot I21.9 ACUTE MYOCARDIAL INFARCTION, UNSPECIFIED 12/22/2017 ENOCH CARL FACC, ALI FACP CCDS Ot I25.10 ATHSCL HEART DISEASE OF [place] CORONARY 12/22/2017 ENOCH CARL FACC, ALI FACP CCDS Ot I25.2 OLD MYOCARDIAL INFARCTION 12/22/2017 ENOCH CARL FACC, ALI FACP CCDS Ot I25.5 ISCHEMIC CARDIOMYOPATHY 12/22/2017 ENOCH CARL FAC, ALI FACP CCDS Ot I50.22 CHRONIC SYSTOLIC (CONGESTIVE) HEART FAIL 12/22/2017 ENOCH HENSON, ALI FACP CCDS Ot J43.8 OTHER EMPHYSEMA 12/22/2017 ENOCH CARL FACC, ALI FACP CCDS Ot R06.02 SHORTNESS OF BREATH 12/22/2017 ENOCH HENSONC, ALI FACP CCDS Ot R73.02 [...] R06.02 SHORTNESS OF BREATH 04/07/2018 ENOCH CARL FACC, ALI FACP CCDS Ot J44.9 CHRONIC OBSTRUCTIVE PULMONARY DISEASE, U 04/07/2018 ENOCH CARL FACC, ALI FACP CCDS Ot R06.02 SHORTNESS OF BREATH 04/28/2018 COLT MARCOS L SIX COLOR PRESS OPERATOR Ot E66.2 MORBID (SEVERE) OBESITY WITH ALVEOLAR HY 04/28/2018 PRITI COLT L SIX COLOR PRESS OPERATOR Ot E78.5 HYPERLIPIDEMIA, UNSPECIFIED 04/28/2018 AZRAMA COLT L SIX COLOR PRESS OPERATOR Ot I11.0 HYPERTENSIVE HEART DISEASE WITH HEART FA 04/28/2018 PRITI COLT L SIX COLOR PRESS OPERATOR Ot I25.10 ATHSCL HEART DISEASE OF [place] CORONARY 04/28/2018 PRITI COLT L SIX COLOR PRESS OPERATOR Ot I25.5 ISCHEMIC CARDIOMYOPATHY 04/28/2018 PRITI COLT L SIX COLOR PRESS OPERATOR Ot I50.22 CHRONIC SYSTOLIC (CONGESTIVE) HEART FAIL 04/28/2018 COLT MARCOS L SIX COLOR PRESS OPERATOR Ot J44.9 CHRONIC OBSTRUCTIVE PULMONARY DISEASE, U 04/28/2018 SEDA MARCOSHER L SIX COLOR PRESS OPERATOR Ot R09.02 HYPOXEMIA 04/28/2018 SEDA MARCOSHER L SIX COLOR PRESS OPERATOR Ot Z68.41 BODY MASS INDEX (BMI) 40.0-44.9, ADULT 04/28/2018 SEDA MARCOSHER L SIX COLOR PRESS OPERATOR Ot Z87.891 PERSONAL HISTORY OF NICOTINE DEPENDENCE 04/28/2018 COLT MARCOS SIX COLOR PRESS OPERATOR Ot E66.2 MORBID (SEVERE) OBESITY WITH ALVEOLAR HY 04/28/2018 COLT MARCOS SIX COLOR PRESS OPERATOR Ot E78.5 HYPERLIPIDEMIA, UNSPECIFIED 04/28/2018 COLT MARCOS SIX COLOR PRESS OPERATOR Ot I11.0 HYPERTENSIVE HEART DISEASE WITH HEART FA 04/28/2018 COLT MARCOS SIX COLOR PRESS OPERATOR Ot I25.10 ATHSCL HEART DISEASE OF [place] CORONARY 04/28/2018 COLT MARCOS SIX COLOR PRESS OPERATOR Ot I25.5 ISCHEMIC CARDIOMYOPATHY 04/28/2018 COLT MARCOS SIX COLOR PRESS OPERATOR Ot I50.22 CHRONIC SYSTOLIC (CONGESTIVE) HEART FAIL 04/28/2018 COLT MARCOS SIX COLOR PRESS OPERATOR Ot J44.9 CHRONIC OBSTRUCTIVE PULMONARY DISEASE, U 04/28/2018 COLT MARCOS SIX COLOR PRESS OPERATOR Ot R09.02 HYPOXEMIA 04/28/2018 COLT MARCOS SIX COLOR PRESS OPERATOR Ot Z68.41 BODY MASS INDEX (BMI) 40.0-44.9, ADULT 04/28/2018 COLT MARCOS SIX COLOR PRESS OPERATOR Ot Z87.891 PERSONAL HISTORY OF NICOTINE [...] MON 08/22/2018 SURINDER PATTON APRN Ot Z79.891 RESIDENTIAL (CURRENT) USE OF OPIATE ANALGE 08/26/2018 RAY CARL, MINNIE Carlisle Ot J32 .0 CHRONIC MAXILLARY SINUSITIS 08/26/2018 MINNIE BELL MD Ot J38 .7 OTHER DISEASES OF LARYNX 08/26/2018 MINNIE BELL MD Ot J43 .9 EMPHYSEMA, UNSPECIFIED 08/26/2018 MINNIE BELL MD Ot Z95.810 PRESENCE OF AUTOMATIC (IMPLANTABLE) CARD 09/05/2018 MINNIE BELL MD Ot J38 .7 OTHER DISEASES OF [place] 09/05/2018 MINNIE BELL MD Ot Z01.811 ENCOUNTER FOR PREPROCEDURAL RESPIRATORY 09/05/2018 MINNIE BELL MD Ot Z01.812 ENCOUNTER FOR PREPROCEDURAL LABORATORY E 09/05/2018 MINNIE BELL MD Ot Z11 .2 ENCOUNTER FOR SCREENING FOR OTHER BACTER 09/07/2018 MINNIE BELL MD Ot J38 .7 OTHER DISEASES OF [place] 09/07/2018 MINNIE BELL MD Ot Z01.811 ENCOUNTER FOR PREPROCEDURAL RESPIRATORY 09/07/2018 MINNIE BELL MD Ot Z01.812 ENCOUNTER FOR PREPROCEDURAL LABORATORY E 09/07/2018 MINNIE BELL MD Ot Z11 .2 ENCOUNTER FOR SCREENING FOR OTHER BACTER 09/09/2018 ROBERT ALCARAZ MD Ot J44.9 CHRONIC OBSTRUCTIVE PULMONARY DISEASE, U 09/09/2018 SURINDER PATTON ARMATURE WINDER Ot Z51.81 ENCOUNTER FOR THERAPEUTIC DRUG LEVEL MON 09/09/2018 SURINDER PATTON ARMATURE WINDER Ot Z79.891 VEGETABLE TESTER (CURRENT) USE OF OPIATE ANALGE 09/09/2018 MINNIE BELL MD Ot J32 .0 CHRONIC MAXILLARY SINUSITIS 09/09/2018 MINNIE BELL MD Ot J38 .7 OTHER DISEASES OF [place] 09/09/2018 MINNIE BELL MD Ot J43 .9 EMPHYSEMA, UNSPECIFIED 09/09/2018 MINNIE BELL MD Ot Z95.810 PRESENCE OF AUTOMATIC (IMPLANTABLE) CARD 09/09/2018 MINNIE BELL MD Ot C32 .1 MALIGNANT NEOPLASM OF SUPRAGLOTTIS 09/09/2018 MINNIE BELL MD Ot I10 ESSENTIAL (PRIMARY) HYPERTENSION 09/09/2018 MINNIE BELL MD Ot I25.10 ATHSCL HEART DISEASE OF [place] CORONARY 09/09/2018 MINNIE BELL MD Ot I65.23 OCCLUSION AND STENOSIS OF [place]AL [place] 09/09/2018 MINNIE BELL MD Ot J44 .9 CHRONIC OBSTRUCTIVE PULMONARY DISEASE, U 09/09/2018 MINNIE BELL MD Ot K21 .9 GASTRO-ESOPHAGEAL REFLUX DISEASE WITHOUT 09/09/2018 MINNIE BELL MD, Ot Z79.02 VEGETABLE TESTER (CURRENT) USE OF ANTITHROMBOTI 09/09/2018 MINNIE BELL MD Ot Z79.899 OTHER RESIDENTIAL (CURRENT) DRUG THERAPY 09/09/2018 MINNIE BELL MD, Ot Z87.891 PERSONAL HISTORY OF NICOTINE DEPENDENCE 09/10/2018 SURINDER PATTON APRN Ot Z51.81 ENCOUNTER FOR THERAPEUTIC DRUG LEVEL MON 09/10/2018 SURINDER PATTON APRN Ot Z79.891 RESIDENTIAL (CURRENT) USE OF OPIATE ANALGE 09/13/2018 MINNIE BELL MD Ot C32 .1 MALIGNANT NEOPLASM OF SUPRAGLOTTIS 09/13/2018 MINNIE BELL MD, Ot I10 ESSENTIAL (PRIMARY) HYPERTENSION 09/13/2018 MINNIE BELL MD Ot I25.10 ATHSCL HEART DISEASE OF [place] CORONARY 09/13/2018 MINNIE BELL MD Ot I65.23 OCCLUSION AND STENOSIS OF [place]AL [place] 09/13/2018 MINNIE BELL MD Ot J44 .9 CHRONIC OBSTRUCTIVE PULMONARY DISEASE, U 09/13/2018 MINNIE BELL MD Ot K21 .9 GASTRO-ESOPHAGEAL REFLUX DISEASE WITHOUT 09/13/2018 MINNIE BELL MD Ot Z79.02 VEGETABLE TESTER (CURRENT) USE OF ANTITHROMBOTI 09/13/2018 MINNIE BELL MD, Ot Z79.899 OTHER VEGETABLE TESTER (CURRENT) DRUG THERAPY 09/13/2018 MINNIE BELL MD, Ot Z87.891 PERSONAL HISTORY OF NICOTINE DEPENDENCE 09/19/2018 ENOCH CARL FACC, JOSE CARLOS FACP CCDS Ot E66.8 OTHER OBESITY 09/19/2018 ENOCH CARL FACC, JOSE CARLOS FACP CCDS Ot G47.33 OBSTRUCTIVE SLEEP APNEA (ADULT) (PEDIATR 09/19/2018 ENOCH CARL FACC, ALI FACP CCDS Ot I21.9 ACUTE MYOCARDIAL INFARCTION, UNSPECIFIED 09/19/2018 ENOCH CARL FACC, ALI FACP CCDS Ot I25.10 ATHSCL HEART DISEASE OF [place] CORONARY 09/19/2018 JOSE CARLOS KENDALL MD, FACC FACP CCDS Ot I25.2 OLD MYOCARDIAL INFARCTION 09/19/2018 JOSE CARLOS KENDALL MD, FACC FACP CCDS Ot I25.5 ISCHEMIC CARDIOMYOPATHY 09/19/2018 ENOCH CARL FACC, JOSE CARLOS FACP CCDS Ot I50.22 CHRONIC SYSTOLIC (CONGESTIVE) HEART FAIL 09/19/2018 JOSE CARLOS KENDALL MD, [facility] Ot J43.8 OTHER EMPHYSEMA 09/19/2018 ENOCH CARL FAC, ALI FACP CCDS Ot R06.02 SHORTNESS OF BREATH 09/19/2018 ENOCH CARL [facility], [facility] Ot R73.02 IMPAIRED GLUCOSE TOLERANCE (ORAL) 09/22/2018 MINNIE BELL MD Ot C76 .0 MALIGNANT NEOPLASM OF HEAD, FACE AND NEC 09/22/2018 MINNIE BELL MD Ot J38 .7 OTHER DISEASES OF [place] 09/23/2018 ROBERT ALCARAZ MD Ot I50.9 HEART FAILURE, UNSPECIFIED 09/23/2018 ROBERT ALCARAZ MD Ot J44.9 CHRONIC OBSTRUCTIVE PULMONARY DISEASE, U 10/05/2018 LIZZ MEZA MD Ot C32.1 MALIGNANT NEOPLASM OF SUPRAGLOTTIS 10/05/2018 LIZZ MEZA MD Ot I10 ESSENTIAL (PRIMARY) HYPERTENSION 10/05/2018 LIZZ MEZA MD Ot I25.1 0 ATHSCL HEART DISEASE OF [place] CORONARY 10/05/2018 LIZZ MEZA MD Ot J44.9 CHRONIC OBSTRUCTIVE PULMONARY DISEASE, U 10/05/2018 LIZZ MEZA MD Ot K21.9 GASTRO-ESOPHAGEAL REFLUX DISEASE WITHOUT 10/05/2018 LIZZ MEZA MD Ot Z79.0 2 RESIDENTIAL (CURRENT) USE OF ANTITHROMBOTI 10/05/2018 LIZZ MEZA MD Ot Z79.8 99 OTHER VEGETABLE TESTER (CURRENT) DRUG THERAPY 10/05/2018 LIZZ MEZA MD Ot Z87.8 91 PERSONAL HISTORY OF NICOTINE DEPENDENCE 10/05/2018 LIZZ MEZA MD Ot C32.1 MALIGNANT NEOPLASM OF SUPRAGLOTTIS 10/05/2018 LIZZ MEZA MD Ot I10 ESSENTIAL (PRIMARY) HYPERTENSION 10/05/2018 LIZZ MEZA MD Ot I25.1 0 ATHSCL HEART DISEASE OF [place] CORONARY 10/05/2018 LIZZ MEZA MD Ot J44.9 CHRONIC OBSTRUCTIVE PULMONARY DISEASE, U 10/05/2018 LIZZ MEZA MD Ot K21.9 GASTRO-ESOPHAGEAL REFLUX DISEASE WITHOUT 10/05/2018 LIZZ MEZA MD Ot Z79.0 2 VEGETABLE TESTER (CURRENT) USE OF ANTITHROMBOTI 10/05/2018 LIZZ MEZA MD Ot Z79.8 99 OTHER VEGETABLE TESTER (CURRENT) DRUG THERAPY 10/05/2018 DERRICK CARL, LIZZ Barnes Ot Z87.8 91 PERSONAL HISTORY OF NICOTINE DEPENDENCE 10/05/2018 ADAMA ELVA K Ot 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, UNSPECIFI 10/05/2018 ADAMA ELVA K Ot E86.0 DEHYDRATION 10/05/2018 ADAMA ELVA Ot I10 ESSENTIAL (PRIMARY) HYPERTENSION 10/05/2018 ADAMA ELVA Ot I25.10 ATHSCL HEART DISEASE OF [place] CORONARY 10/05/2018 ADAMA ELVA Ot I25.2 OLD MYOCARDIAL INFARCTION 10/05/2018 ELVA GALAN DO Ot J44.9 CHRONIC OBSTRUCTIVE PULMONARY DISEASE, U 10/05/2018 ADAMA ELVA Ot K06.8 OTH DISRD OF [place] AND EDENTULOUS ALVE 10/05/2018 ELVA GALAN DO Ot 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 10/05/2018 ELVA GALAN DO Ot Z79.02 VEGETABLE TESTER (CURRENT) USE OF ANTITHROMBOTI 10/05/2018 ELVA GALAN DO Ot Z79.82 RESIDENTIAL (CURRENT) USE OF ASPIRIN 10/05/2018 ELVA GALAN DO Ot Z87.891 PERSONAL HISTORY OF NICOTINE DEPENDENCE 10/05/2018 ELVA GALAN DO Ot Z88.8 ALLERGY STATUS TO OT DRUG/MEDS/BIOL SUB 10/05/2018 ELVA GALAN DO Ot Z95.5 PRESENCE OF CORONARY ANGIOPLASTY IMPLANT 10/07/2018 ELVA GALAN DO Ot 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, UNSPECIFI 10/07/2018 ELVA GALAN DO Ot E86.0 DEHYDRATION 10/07/2018 ELVA GALAN DO Ot I10 ESSENTIAL (PRIMARY) HYPERTENSION 10/07/2018 ELVA GALAN DO Ot I25.10 ATHSCL HEART DISEASE OF [place] CORONARY 10/07/2018 ELVA GALAN DO Ot I25.2 OLD MYOCARDIAL INFARCTION 10/07/2018 ELVA GALAN DO Ot J44.9 CHRONIC OBSTRUCTIVE PULMONARY DISEASE, U 10/07/2018 ELVA GALAN DO Ot K06.8 OTH DISRD OF [place] AND EDENTULOUS ALVE 10/07/2018 ADAMA CHEATHAM ELVA Burns Ot 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 10/07/2018 ADAMA ELVA Grant Ot Z79.02 RESIDENTIAL (CURRENT) USE OF ANTITHROMBOTI 10/07/2018 ACE GALAN DOA K Ot Z79.82 VEGETABLE TESTER (CURRENT) USE OF ASPIRIN 10/07/2018 ACE GALAN DOA Grant Ot Z87.891 PERSONAL HISTORY OF NICOTINE DEPENDENCE 10/07/2018 ACE GALAN DOA Grant Ot Z88.8 ALLERGY STATUS TO OTH DRUG/MEDS/BIOL SUB 10/07/2018 ADAMA CHEATHAM ELVA K Ot Z95.5 PRESENCE OF CORONARY ANGIOPLASTY IMPLANT 10/07/2018 ELVA GALAN DO Ot 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, UNSPECIFI 10/07/2018 ELVA GALAN DO Ot E86.0 DEHYDRATION 10/07/2018 ELVA GALAN DO Ot I10 ESSENTIAL (PRIMARY) HYPERTENSION 10/07/2018 ELVA GALAN DO Ot I25.10 ATHSCL HEART DISEASE OF [place] CORONARY 10/07/2018 ELVA GALAN DO Ot I25.2 OLD MYOCARDIAL INFARCTION 10/07/2018 ELVA GALAN DO Ot J44.9 CHRONIC OBSTRUCTIVE PULMONARY DISEASE, U 10/07/2018 ELVA GALAN DO Ot K06.8 OTH DISRD OF [place] AND EDENTULOUS ALVE 10/07/2018 ADAMA CHEATHAM ELVA Grant Ot 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 10/07/2018 ADAMA CHEATHAM ELVA K Ot Z79.02 RESIDENTIAL (CURRENT) USE OF ANTITHROMBOTI 10/07/2018 ACE GALAN DOA Grant Ot Z79.82 VEGETABLE TESTER (CURRENT) USE OF ASPIRIN 10/07/2018 ACE GALAN DOA Grant Ot Z87.891 PERSONAL HISTORY OF NICOTINE DEPENDENCE 10/07/2018 ACE GALAN DOA Grant Ot Z88.8 ALLERGY STATUS TO OTH DRUG/MEDS/BIOL SUB 10/07/2018 ACE GALAN DOA K Ot Z95.5 PRESENCE OF CORONARY ANGIOPLASTY IMPLANT 10/28/2018 ENOCH CARL FACC, ALI FACP CCDS Ot E66.01 MORBID (SEVERE) OBESITY DUE TO EXCESS CA 10/28/2018 ENOCH CARL FACC, ALI FACP CCDS Ot E78.4 OTHER HYPERLIPIDEMIA 10/28/2018 ENOCH CARL FACC, ALI FACP CCDS Ot G47.33 OBSTRUCTIVE SLEEP APNEA (ADULT) (PEDIATR 10/28/2018 ENOCH CARL FACC, ALI FACP CCDS Ot I10 ESSENTIAL (PRIMARY) HYPERTENSION 10/28/2018 ENOCH CARL FACC, ALI FACP CCDS Ot I25.10 ATHSCL HEART DISEASE OF [place] CORONARY 10/28/2018 ENOCH CARL FACC, ALI FACP CCDS Ot I50.23 ACUTE ON CHRONIC SYSTOLIC (CONGESTIVE) H 10/28/2018 ENOCH CARL FACC, ALI FACP CCDS Ot R06.02 SHORTNESS OF BREATH 10/28/2018 ENOCH CARL FACC, ALI FACP CCDS Ot E66.01 MORBID (SEVERE) OBESITY DUE TO EXCESS CA 10/28/2018 ENOCH CARL FACC, ALI FACP CCDS Ot E78.4 OTHER HYPERLIPIDEMIA 10/28/2018 ENOCH CARL FACC, ALI FACP CCDS Ot G47.33 OBSTRUCTIVE SLEEP APNEA (ADULT) (PEDIATR 10/28/2018 ENOCH CARL FACC, ALI FACP CCDS Ot I11.0 HYPERTENSIVE HEART DISEASE WITH HEART FA 10/28/2018 ENOCH CARL FACC, ALI FACP CCDS Ot I25.10 ATHSCL HEART DISEASE OF [place] CORONARY 10/28/2018 ENOCH CARL FACC, ALI FACP CCDS Ot I50.23 ACUTE ON CHRONIC SYSTOLIC (CONGESTIVE) H 10/28/2018 ENOCH CARL FACC, ALI FACP CCDS Ot R06.02 SHORTNESS OF BREATH 10/28/2018 ROBERT ALCARAZ MD Ot I51.7 CARDIOMEGALY 10/28/2018 ROBERT ALCARAZ MD Ot J90 PLEURAL EFFUSION, NOT ELSEWHERE CLASSIFI 10/28/2018 ROBERT ALCARAZ MD Ot J98.1 1 ATELECTASIS 10/28/2018 SURINDER PATTON APRN Ot R06.02 SHORTNESS OF BREATH 10/28/2018 SURINDER PATTON APRN Ot I25.10 ATHSCL HEART DISEASE OF [place] CORONARY 10/28/2018 SURINDER PATTON APRN Ot I51.7 CARDIOMEGALY 10/28/2018 SURINDER PATTON APRN Ot J 90 PLEURAL EFFUSION, NOT ELSEWHERE CLASSIFI 10/28/2018 ARI CARL, TIMOTEO Sanchez Ot M43. 06 SPONDYLOLYSIS, LUMBAR REGION 10/28/2018 ENOCH CARL FACC, ALI FACP CCDS Ot G47.33 OBSTRUCTIVE SLEEP APNEA (ADULT) (PEDIATR 10/28/2018 ENOCH CARL FACC, ALI FACP CCDS Ot I25.10 ATHSCL HEART DISEASE OF [place] CORONARY 10/28/2018 ENOCH CARL FACC, ALI FACP [...] 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 10/28/2018 ENOCH HENSONC, ALI FACP CCDS Ot J43.8 OTHER EMPHYSEMA 10/28/2018 ENOCH HENSONC, ALI FACP CCDS Ot M54.5 LOW BACK PAIN 10/28/2018 ROBERT ALCARAZ MD Ot I50.9 HEART FAILURE, UNSPECIFIED 10/28/2018 ROBERT ALCARAZ MD Ot J44.9 CHRONIC OBSTRUCTIVE PULMONARY DISEASE, U 10/28/2018 ENOCH HENSONC, ALI FACP CCDS Ot E66.8 OTHER OBESITY 10/28/2018 ENOCH HENSONC, ALI FACP CCDS Ot G47.33 OBSTRUCTIVE SLEEP APNEA (ADULT) (PEDIATR 10/28/2018 ENOCH CARL FACC, ALI FACP CCDS Ot I25.10 ATHSCL HEART DISEASE OF [place] CORONARY 10/28/2018 ENOCH HENSONC, ALI FACP CCDS Ot I25.2 OLD MYOCARDIAL INFARCTION 10/28/2018 ENOCH HENSONC, ALI FACP CCDS Ot I25.5 ISCHEMIC CARDIOMYOPATHY 10/28/2018 ENOCH CARL FACC, ALI FACP CCDS Ot I50.22 CHRONIC SYSTOLIC (CONGESTIVE) HEART FAIL 10/28/2018 ENOCH HENSONC, ALI FACP CCDS Ot J43.8 OTHER EMPHYSEMA 10/28/2018 ENOCH HENSONC, ALI FACP CCDS Ot R06.02 SHORTNESS OF BREATH 10/28/2018 ENOCH HENSON, ALI FACP CCDS Ot R73.02 IMPAIRED GLUCOSE TOLERANCE (ORAL) 10/28/2018 ENOCH CARL FACC, ALI FACP CCDS Ot E66.8 OTHER OBESITY 10/28/2018 ENOCH HENSONC, ALI FACP CCDS Ot G47.33 OBSTRUCTIVE SLEEP APNEA (ADULT) (PEDIATR 10/28/2018 ENOCH HENSON, ALI FACP CCDS Ot I21.9 ACUTE MYOCARDIAL INFARCTION, UNSPECIFIED 10/28/2018 ENOCH HENSON, ALI FACP CCDS Ot I25.10 ATHSCL HEART DISEASE OF [place] CORONARY 10/28/2018 ENOCH CARL FACC, ALI FACP CCDS Ot I25.2 OLD MYOCARDIAL INFARCTION 10/28/2018 ENOCH CARL FACC, ALI FACP CCDS Ot I25.5 ISCHEMIC CARDIOMYOPATHY 10/28/2018 ENOCH CARL FACC, ALI FACP CCDS Ot I50.22 CHRONIC SYSTOLIC (CONGESTIVE) HEART FAIL 10/28/2018 ENOCH HENSON, ALI FACP CCDS Ot J43.8 OTHER EMPHYSEMA 10/28/2018 ENOCH CARL FACC, ALI FACP CCDS Ot R06.02 SHORTNESS OF BREATH 10/28/2018 ENOCH HENSON, ALI FACP CCDS Ot R73.02 IMPAIRED GLUCOSE TOLERANCE (ORAL) 10/28/2018 CECE PHOENIX APRN Ot E66.2 MORBID (SEVERE) OBESITY WITH ALVEOLAR HY 10/28/2018 CECE PHOENIX APRN Ot J43.8 OTHER EMPHYSEMA 10/28/2018 LISSA CARL, ROBERT Bryant Ot J44.9 CHRONIC OBSTRUCTIVE PULMONARY DISEASE, U 12/13/2018 LIZZ MEZA MD, Ot C32.1 MALIGNANT NEOPLASM OF SUPRAGLOTTIS 12/13/2018 LIZZ MEZA MD, Ot I10 ESSENTIAL (PRIMARY) HYPERTENSION 12/13/2018 LIZZ MEZA MD, Ot I25.1 0 ATHSCL HEART DISEASE OF [place] CORONARY 12/13/2018 LIZZ MEZA MD, Ot J44.9 CHRONIC OBSTRUCTIVE PULMONARY DISEASE, U 12/13/2018 LIZZ MEZA MD, Ot K21.9 GASTRO-ESOPHAGEAL REFLUX DISEASE WITHOUT 12/13/2018 LIZZ MEZA MD, Ot Z51.0 ENCOUNTER FOR ANTINEOPLASTIC RADIATION T 12/13/2018 LIZZ MEZA MD E Ot Z79.0 2 RESIDENTIAL (CURRENT) USE OF ANTITHROMBOTI 12/13/2018 LIZZ MEZA MD Ot Z79.8 99 OTHER RESIDENTIAL (CURRENT) DRUG THERAPY 12/13/2018 LIZZ MEZA MD E Ot Z87.8 91 PERSONAL HISTORY OF NICOTINE DEPENDENCE 12/15/2018 LIZZ MEZA MD Ot C32.1 MALIGNANT NEOPLASM OF SUPRAGLOTTIS 12/15/2018 LIZZ MEZA MD E Ot I10 ESSENTIAL (PRIMARY) HYPERTENSION 12/15/2018 LIZZ MEZA MD E Ot I25.1 0 ATHSCL HEART DISEASE OF [place] CORONARY 12/15/2018 LIZZ MEZA MD E Ot J44.9 CHRONIC OBSTRUCTIVE PULMONARY DISEASE, U 12/15/2018 LIZZ MEZA MD E Ot K21.9 GASTRO-ESOPHAGEAL REFLUX DISEASE WITHOUT 12/15/2018 LIZZ MEZA MD E Ot Z79.0 2 VEGETABLE TESTER (CURRENT) USE OF ANTITHROMBOTI 12/15/2018 LIZZ MEZA MD Ot Z79.8 99 OTHER RESIDENTIAL (CURRENT) DRUG THERAPY 12/15/2018 LIZZ MEZA MD E Ot Z87.8 91 PERSONAL HISTORY OF NICOTINE DEPENDENCE 12/15/2018 LIZZ MEZA MD Ot C32.1 MALIGNANT NEOPLASM OF SUPRAGLOTTIS 12/15/2018 LIZZ MEZA MD E Ot I10 ESSENTIAL (PRIMARY) HYPERTENSION 12/15/2018 LIZZ MEZA MD E Ot I25.1 0 ATHSCL HEART DISEASE OF [place] CORONARY 12/15/2018 LIZZ MEZA MD Ot J44.9 CHRONIC OBSTRUCTIVE PULMONARY DISEASE, U 12/15/2018 LIZZ MEZA MD Ot K21.9 GASTRO-ESOPHAGEAL REFLUX DISEASE WITHOUT 12/15/2018 LIZZ MEZA MD Ot Z51.0 ENCOUNTER FOR ANTINEOPLASTIC RADIATION T 12/15/2018 LIZZ MEZA MD E Ot Z79.0 2 RESIDENTIAL (CURRENT) USE OF ANTITHROMBOTI 12/15/2018 LIZZ MEZA MD E Ot Z79.8 99 OTHER VEGETABLE TESTER (CURRENT) DRUG THERAPY 12/15/2018 LIZZ MEZA MD E Ot Z87.8 91 PERSONAL HISTORY OF NICOTINE DEPENDENCE 12/19/2018 LIZZ MEZA MD Ot C32.1 MALIGNANT NEOPLASM OF SUPRAGLOTTIS 12/19/2018 MEZA MD, LIZZ E Ot I10 ESSENTIAL (PRIMARY) HYPERTENSION 12/19/2018 LIZZ MEZA MD Ot I25.1 0 ATHSCL HEART DISEASE OF [place] CORONARY 12/19/2018 LIZZ MEZA MD Ot J44.9 CHRONIC OBSTRUCTIVE PULMONARY DISEASE, U 12/19/2018 LIZZ MEZA MD Ot K21.9 GASTRO-ESOPHAGEAL REFLUX DISEASE WITHOUT 12/19/2018 LIZZ MEZA MD Ot Z51.0 ENCOUNTER FOR ANTINEOPLASTIC RADIATION T 12/19/2018 LIZZ MEZA MD Ot Z79.0 2 RESIDENTIAL (CURRENT) USE OF ANTITHROMBOTI 12/19/2018 LIZZ MEZA MD Ot Z79.8 99 OTHER VEGETABLE TESTER (CURRENT) DRUG THERAPY 12/19/2018 LIZZ MEZA MD Ot Z87.8 91 PERSONAL HISTORY OF NICOTINE DEPENDENCE 01/05/2019 SURINDER PATTON APRN Ot Z51.81 ENCOUNTER FOR THERAPEUTIC DRUG LEVEL MON 01/05/2019 SURINDER PATTON ARMATURE WINDER Ot Z79.891 VEGETABLE TESTER (CURRENT) USE OF OPIATE ANALGE 01/06/2019 MERYL CLIFFORD Ot I11.0 HYPERTENSIVE HEART DISEASE WITH HEART FA 01/06/2019 MERYL CLIFFORD Ot I25.10 ATHSCL HEART DISEASE OF [place] CORONARY 01/06/2019 MERYL CLIFFORD Ot I25.2 OLD MYOCARDIAL INFARCTION 01/06/2019 MERYL CLIFFORD Ot I50.9 HEART FAILURE, UNSPECIFIED 01/06/2019 MERYL CLIFFORD Ot J44.9 CHRONIC OBSTRUCTIVE PULMONARY DISEASE, U 01/06/2019 MERYL CLIFFORD Ot R05 COUGH 01/06/2019 GLORIA CLIFFORDIS Ot Z79.02 RESIDENTIAL (CURRENT) USE OF ANTITHROMBOTI 01/06/2019 GLORIA CLIFFORDIS Ot Z79.82 RESIDENTIAL (CURRENT) USE OF ASPIRIN 01/06/2019 MERYL CLIFFORD Ot Z85.818 PRSNL HX OF MALIG NEOPLM OF SITE OF LIP, 01/06/2019 MERYL CLIFFORD Ot Z87.448 PERSONAL HISTORY OF OTHER DISEASES OF UR 01/06/2019 MERYL CLIFFORD Ot Z87.891 PERSONAL HISTORY OF NICOTINE DEPENDENCE 01/06/2019 MERYL CLIFFORD Ot Z88.8 ALLERGY STATUS TO OT DRUG/MEDS/BIOL SUB 01/06/2019 BERNOT, MERYL Ot Z95.5 PRESENCE OF CORONARY ANGIOPLASTY IMPLANT 01/06/2019 DESMONDGLORIA CHUNIS Ot Z95.810 PRESENCE OF AUTOMATIC (IMPLANTABLE) CARD 01/06/2019 MERYL CLIFFORD Ot Z98.890 OTHER SPECIFIED POSTPROCEDURAL STATES 01/06/2019 GLORIA CLIFFORDIS Ot Z99.81 DEPENDENCE ON SUPPLEMENTAL OXYGEN 01/09/2019 MERYL CLIFFORD Ot I11.0 HYPERTENSIVE HEART DISEASE WITH HEART FA 01/09/2019 GLORIA CLIFFORDIS Ot I25.10 ATHSCL HEART DISEASE OF [place] CORONARY 01/09/2019 MERYL CLIFFORD Ot I25.2 OLD MYOCARDIAL INFARCTION 01/09/2019 MERYL CLIFFORD Ot I50.9 HEART FAILURE, UNSPECIFIED 01/09/2019 MERYL CLIFFORD Ot J44.9 CHRONIC OBSTRUCTIVE PULMONARY DISEASE, U 01/09/2019 MERYL CLIFFORD Ot R05 COUGH 01/09/2019 MERYL CLIFFORD Ot Z79.02 VEGETABLE TESTER (CURRENT) USE OF ANTITHROMBOTI 01/09/2019 MERYL CLIFFORD Ot Z79.82 VEGETABLE TESTER (CURRENT) USE OF ASPIRIN 01/09/2019 GLORIA CLIFFORDIS Ot Z85.818 PRSNL HX OF MALIG NEOPLM OF SITE OF LIP, 01/09/2019 MERYL CLIFFORD Ot Z87.448 PERSONAL HISTORY OF OTHER DISEASES OF UR 01/09/2019 MERYL CLIFFORD Ot Z87.891 PERSONAL HISTORY OF NICOTINE DEPENDENCE 01/09/2019 MERYL CLIFFORD Ot Z88.8 ALLERGY STATUS TO OTH DRUG/MEDS/BIOL SUB 01/09/2019 MERYL CLIFFORD Ot Z95.5 PRESENCE OF CORONARY ANGIOPLASTY IMPLANT 01/09/2019 MERYL CLIFFORD Ot Z95.810 PRESENCE OF AUTOMATIC (IMPLANTABLE) CARD 01/09/2019 MERYL CLIFFORD Ot Z98.890 OTHER SPECIFIED POSTPROCEDURAL STATES 01/09/2019 MERYL CLIFFORD Ot Z99.81 DEPENDENCE ON SUPPLEMENTAL OXYGEN 02/09/2019 LIZZ MEZA MD, Ot C32.1 MALIGNANT NEOPLASM OF SUPRAGLOTTIS 02/09/2019 LIZZ MEZA MD Ot I10 ESSENTIAL (PRIMARY) HYPERTENSION 02/09/2019 LIZZ MEZA MD, Ot I25.1 0 ATHSCL HEART DISEASE OF [place] CORONARY 02/09/2019 LIZZ MEZA MD Ot J44.9 CHRONIC OBSTRUCTIVE PULMONARY DISEASE, U 02/09/2019 LIZZ MEZA MD Ot K21.9 GASTRO-ESOPHAGEAL REFLUX DISEASE WITHOUT 02/09/2019 LIZZ MEZA MD E Ot Z51.0 ENCOUNTER FOR ANTINEOPLASTIC RADIATION T 02/09/2019 LIZZ MEZA MD E Ot Z79.0 2 VEGETABLE TESTER (CURRENT) USE OF ANTITHROMBOTI 02/09/2019 LIZZ MEZA MD Ot Z79.8 99 OTHER RESIDENTIAL (CURRENT) DRUG THERAPY 02/09/2019 LIZZ MEZA MD E Ot Z87.8 91 PERSONAL HISTORY OF NICOTINE DEPENDENCE 03/14/2019 LIZZ MEZA MD E Ot C32.1 MALIGNANT NEOPLASM OF SUPRAGLOTTIS 03/14/2019 LIZZ MEZA MD E Ot I10 ESSENTIAL (PRIMARY) HYPERTENSION 03/14/2019 LIZZ MEZA MD E Ot I25.1 0 ATHSCL HEART DISEASE OF [place] CORONARY 03/14/2019 LIZZ MEZA MD Ot J44.9 CHRONIC OBSTRUCTIVE PULMONARY DISEASE, U 03/14/2019 LIZZ MEZA MD Ot K21.9 GASTRO-ESOPHAGEAL REFLUX DISEASE WITHOUT 03/14/2019 LIZZ MEZA MD E Ot Z51.0 ENCOUNTER FOR ANTINEOPLASTIC RADIATION T 03/14/2019 LIZZ MEZA MD Ot Z79.0 2 VEGETABLE TESTER (CURRENT) USE OF ANTITHROMBOTI 03/14/2019 LIZZ MEZA MD E Ot Z79.8 99 OTHER RESIDENTIAL (CURRENT) DRUG THERAPY 03/14/2019 LIZZ MEZA MD Ot Z87.8 91 PERSONAL HISTORY OF NICOTINE DEPENDENCE 03/15/2019 LIZZ MEZA MD Ot C32.1 MALIGNANT NEOPLASM OF SUPRAGLOTTIS 03/15/2019 LIZZ MEZA MD E Ot I10 ESSENTIAL (PRIMARY) HYPERTENSION 03/15/2019 LIZZ MEZA MD E Ot I25.1 0 ATHSCL HEART DISEASE OF [place] CORONARY 03/15/2019 LIZZ MEZA MD Ot J44.9 CHRONIC OBSTRUCTIVE PULMONARY DISEASE, U 03/15/2019 LIZZ MEZA MD Ot K21.9 GASTRO-ESOPHAGEAL REFLUX DISEASE WITHOUT 03/15/2019 LIZZ MEZA MD E Ot Z51.0 ENCOUNTER FOR ANTINEOPLASTIC RADIATION T 03/15/2019 LIZZ MEZA MD E Ot Z79.0 2 RESIDENTIAL (CURRENT) USE OF ANTITHROMBOTI 03/15/2019 LIZZ MEZA MD Ot Z79.8 99 OTHER RESIDENTIAL (CURRENT) DRUG THERAPY 03/15/2019 LIZZ MEZA MD Ot Z87.8 91 PERSONAL HISTORY OF NICOTINE DEPENDENCE 06/06/2019 ENOCH CARL FAC, ALI FACP CCDS Ot J44.9 CHRONIC OBSTRUCTIVE PULMONARY DISEASE, U 06/06/2019 ENOCH CARL FAC, ALI FACP CCDS Ot R06.02 SHORTNESS OF BREATH 06/06/2019 LIZZ MEZA MD Ot C32.1 MALIGNANT NEOPLASM OF SUPRAGLOTTIS 06/06/2019 LIZZ MEZA MD Ot I10 ESSENTIAL (PRIMARY) HYPERTENSION 06/06/2019 LIZZ MEZA MD Ot I25.1 0 ATHSCL HEART DISEASE OF [place] CORONARY 06/06/2019 LIZZ MEZA MD, Ot J44.9 CHRONIC OBSTRUCTIVE PULMONARY DISEASE, U 06/06/2019 LIZZ MEZA MD Ot K21.9 GASTRO-ESOPHAGEAL REFLUX DISEASE WITHOUT 06/06/2019 LIZZ MEZA MD Ot Z51.0 ENCOUNTER FOR ANTINEOPLASTIC RADIATION T 06/06/2019 LIZZ MEZA MD Ot Z79.0 2 RESIDENTIAL (CURRENT) USE OF ANTITHROMBOTI 06/06/2019 LIZZ MEZA MD Ot Z79.8 99 OTHER VEGETABLE TESTER (CURRENT) DRUG THERAPY 06/06/2019 LIZZ MEZA MD, Ot Z87.8 91 PERSONAL HISTORY OF NICOTINE DEPENDENCE 06/12/2019 SHANNAN WALKER MD Ot C32 .9 MALIGNANT NEOPLASM OF LARYNX, UNSPECIFIE 06/12/2019 SHANNAN WALKER MD Ot D64 .9 ANEMIA, UNSPECIFIED 06/12/2019 SHANNAN WALKER MD Ot E74.39 OTHER DISORDERS OF INTESTINAL CARBOHYDRA 06/12/2019 SHANNAN WALKER MD Ot E78 .5 HYPERLIPIDEMIA, UNSPECIFIED 06/12/2019 SHANNAN WALKER MD Ot F17.210 NICOTINE DEPENDENCE, CIGARETTES, UNCOMPL 06/12/2019 SHANNAN WALKER MD Ot G62 .9 POLYNEUROPATHY, UNSPECIFIED 06/12/2019 SHANNAN WALKER MD Ot I10 ESSENTIAL (PRIMARY) HYPERTENSION 06/12/2019 SHANNAN WALKER MD Ot I25.118 ATHSCL HEART DISEASE OF [place] COR ART W 06/12/2019 SHANNAN WALKER MD Ot I25 .2 OLD MYOCARDIAL INFARCTION 06/12/2019 SHANNAN WALKER MD Ot I25 .5 ISCHEMIC CARDIOMYOPATHY 06/12/2019 SHANNAN WALKER MD Ot I50.23 ACUTE ON CHRONIC SYSTOLIC (CONGESTIVE) H 06/12/2019 SHANNAN WALKER MD Ot I65.23 OCCLUSION AND STENOSIS OF BILATERAL [place] 06/12/2019 SHANNAN WALKER MD Ot I70 .8 ATHEROSCLEROSIS OF OTHER ARTERIES 06/12/2019 SHANNAN WALKER MD Ot I71 .4 ABDOMINAL AORTIC ANEURYSM, WITHOUT RUPTU 06/12/2019 SHANNAN WALKER MD Ot J30 .2 OTHER SEASONAL ALLERGIC RHINITIS 06/12/2019 SHANNAN WALKER MD, Ot J44 .1 CHRONIC OBSTRUCTIVE PULMONARY DISEASE W 06/12/2019 SHANNAN WALKER MD Ot K92 .2 GASTROINTESTINAL HEMORRHAGE, UNSPECIFIED 06/12/2019 SHANNAN WALKER MD Ot M19.91 PRIMARY OSTEOARTHRITIS, UNSPECIFIED SITE 06/12/2019 SHANNAN WALKER MD Ot M54 .9 DORSALGIA, UNSPECIFIED 06/12/2019 SHANNAN WALKER MD Ot N40 .0 BENIGN PROSTATIC HYPERPLASIA WITHOUT LOW 06/12/2019 SHANNAN WALKER MD Ot R09.02 HYPOXEMIA 06/12/2019 SHANNAN WALKER MD Ot Z68.41 BODY MASS INDEX (BMI) 40.0-44.9, ADULT 06/12/2019 SHANNAN WALKER MD Ot Z95 .5 PRESENCE OF CORONARY ANGIOPLASTY IMPLANT 06/12/2019 SHANNAN WALKER MD Ot Z95.810 PRESENCE OF AUTOMATIC (IMPLANTABLE) CARD 06/12/2019 SHANNAN WALKER MD Ot Z99 .3 DEPENDENCE ON WHEELCHAIR 06/12/2019 SHANNAN WALKER MD Ot Z99.81 DEPENDENCE ON SUPPLEMENTAL OXYGEN 06/12/2019 SHANNAN WALKER MD Ot C32 .9 MALIGNANT NEOPLASM OF LARYNX, UNSPECIFIE 06/12/2019 SHANNAN WALKER MD Ot D64 .9 ANEMIA, UNSPECIFIED 06/12/2019 SHANNAN WALKER MD Ot E66 .2 MORBID (SEVERE) OBESITY WITH ALVEOLAR HY 06/12/2019 SHANNAN WALKER MD Ot E74.39 OTHER DISORDERS OF INTESTINAL CARBOHYDRA 06/12/2019 SHANNAN WALKER MD Ot E78 .5 HYPERLIPIDEMIA, UNSPECIFIED 06/12/2019 SHANNAN WALKER MD Ot F17.210 NICOTINE DEPENDENCE, CIGARETTES, UNCOMPL 06/12/2019 SHANNAN WALKER MD, Ot G62 .9 POLYNEUROPATHY, UNSPECIFIED 06/12/2019 SHANNAN WALKER MD Ot I10 ESSENTIAL (PRIMARY) HYPERTENSION 06/12/2019 SHANNAN WALKER MD Ot I11 .0 HYPERTENSIVE HEART DISEASE WITH HEART FA 06/12/2019 SHANNAN WALKER MD Ot I25.118 ATHSCL HEART DISEASE OF [place] COR ART W 06/12/2019 SHANNAN WALKER MD, Ot I25 .2 OLD MYOCARDIAL INFARCTION 06/12/2019 SHANNAN WALKER MD, Ot I25 .5 ISCHEMIC CARDIOMYOPATHY 06/12/2019 SHANNAN WALKER MD Ot I44 .7 LEFT BUNDLE-BRANCH BLOCK, UNSPECIFIED 06/12/2019 SHANNAN WALKER MD Ot I50.23 ACUTE ON CHRONIC SYSTOLIC (CONGESTIVE) H 06/12/2019 SHANNAN WALKER MD Ot I65.23 OCCLUSION AND STENOSIS OF BILATERAL [place] 06/12/2019 SHANNAN WALKER MD Ot I70 .8 ATHEROSCLEROSIS OF OTHER ARTERIES 06/12/2019 SHANNAN WALKER MD Ot I71 .4 ABDOMINAL AORTIC ANEURYSM, WITHOUT RUPTU 06/12/2019 SHANNAN WALKER MD Ot J30 .2 OTHER SEASONAL ALLERGIC RHINITIS 06/12/2019 SHANNAN WALKER MD Ot J44 .1 CHRONIC OBSTRUCTIVE PULMONARY DISEASE W 06/12/2019 SHANNAN WALKER MD Ot K92 .1 MELENA 06/12/2019 SHANNAN WALKER MD, Ot K92 .2 GASTROINTESTINAL HEMORRHAGE, UNSPECIFIED 06/12/2019 SHANNAN WALKER MD Ot M19.91 PRIMARY OSTEOARTHRITIS, UNSPECIFIED SITE 06/12/2019 SHANNAN WALKER MD Ot M54 .9 DORSALGIA, UNSPECIFIED 06/12/2019 SHANNAN WALKER MD Ot N40 .0 BENIGN PROSTATIC HYPERPLASIA WITHOUT LOW 06/12/2019 SHANNAN WALKER MD Ot R09.02 HYPOXEMIA 06/12/2019 SHANNAN WALKER MD Ot Z68.41 BODY MASS INDEX (BMI) 40.0-44.9, ADULT 06/12/2019 SHANNAN WALKER MD Ot Z95 .5 PRESENCE OF CORONARY ANGIOPLASTY IMPLANT 06/12/2019 SHANNAN WALKER MD Ot Z95.810 PRESENCE OF AUTOMATIC (IMPLANTABLE) CARD 06/12/2019 SHANNAN WALKER MD Ot Z99 .3 DEPENDENCE ON WHEELCHAIR 06/12/2019 SHANNAN WALKER MD Ot Z99.81 DEPENDENCE ON SUPPLEMENTAL OXYGEN 06/21/2019 LIZZ MEZA MD Ot C32.1 MALIGNANT NEOPLASM OF SUPRAGLOTTIS 06/21/2019 LIZZ MEZA MD Ot I10 ESSENTIAL (PRIMARY) HYPERTENSION 06/21/2019 LIZZ MEZA MD Ot I25.1 0 ATHSCL HEART DISEASE OF [place] CORONARY 06/21/2019 LIZZ MEZA MD Ot J44.9 CHRONIC OBSTRUCTIVE PULMONARY DISEASE, U 06/21/2019 LIZZ MEZA MD Ot K21.9 GASTRO-ESOPHAGEAL REFLUX DISEASE WITHOUT 06/21/2019 LIZZ MEZA MD Ot Z51.0 ENCOUNTER FOR ANTINEOPLASTIC RADIATION T 06/21/2019 LIZZ MEZA MD Ot Z79.0 2 VEGETABLE TESTER (CURRENT) USE OF ANTITHROMBOTI 06/21/2019 LIZZ MEZA MD Ot Z79.8 99 OTHER RESIDENTIAL (CURRENT) DRUG THERAPY 06/21/2019 LIZZ MEZA MD Ot Z87.8 91 PERSONAL HISTORY OF NICOTINE DEPENDENCE 06/22/2019 LIZZ MEZA MD Ot C32.1 MALIGNANT NEOPLASM OF SUPRAGLOTTIS 06/22/2019 LIZZ MEZA MD Ot I10 ESSENTIAL (PRIMARY) HYPERTENSION 06/22/2019 LIZZ MEZA MD Ot I25.1 0 ATHSCL HEART DISEASE OF [place] CORONARY 06/22/2019 LIZZ MEZA MD Ot J44.9 CHRONIC OBSTRUCTIVE PULMONARY DISEASE, U 06/22/2019 LIZZ MEZA MD Ot K21.9 GASTRO-ESOPHAGEAL REFLUX DISEASE WITHOUT 06/22/2019 LIZZ MEZA MD Ot Z79.0 2 RESIDENTIAL (CURRENT) USE OF ANTITHROMBOTI 06/22/2019 LIZZ MEZA MD Ot Z79.8 99 OTHER VEGETABLE TESTER (CURRENT) DRUG THERAPY 06/22/2019 LIZZ MEZA MD Ot Z87.8 91 PERSONAL HISTORY OF NICOTINE DEPENDENCE 12/14/2019 ROBERT ALCARAZ MD Ot J44.9 CHRONIC OBSTRUCTIVE PULMONARY DISEASE, U 12/14/2019 SURINDER PATTON APRN Ot Z51.81 ENCOUNTER FOR THERAPEUTIC DRUG LEVEL MON 12/14/2019 SURINDER PATTON ARMATURE WINDER Ot Z79.891 RESIDENTIAL (CURRENT) USE OF OPIATE ANALGE 12/14/2019 MINNIE BELL MD Ot J32 .0 CHRONIC MAXILLARY SINUSITIS 12/14/2019 MINNIE BELL MD Ot J38 .7 OTHER DISEASES OF [place] 12/14/2019 MINNIE BELL MD Ot J43 .9 EMPHYSEMA, UNSPECIFIED 12/14/2019 MINNIE BELL MD Ot Z95.810 PRESENCE OF AUTOMATIC (IMPLANTABLE) CARD 12/14/2019 MINNIE BELL MD Ot C76 .0 MALIGNANT NEOPLASM OF HEAD, FACE AND NEC 12/14/2019 MINNIE BELL MD Ot J38 .7 OTHER DISEASES OF [place] 12/14/2019 LIZZ MEZA MD Ot C32.1 MALIGNANT NEOPLASM OF SUPRAGLOTTIS 12/14/2019 LIZZ MEZA MD Ot I10 ESSENTIAL (PRIMARY) HYPERTENSION 12/14/2019 LIZZ MEZA MD, Ot I25.1 0 ATHSCL HEART DISEASE OF [place] CORONARY 12/14/2019 LIZZ MEZA MD Ot J44.9 CHRONIC OBSTRUCTIVE PULMONARY DISEASE, U 12/14/2019 LIZZ MEZA MD Ot K21.9 GASTRO-ESOPHAGEAL REFLUX DISEASE WITHOUT 12/14/2019 LIZZ MEZA MD Ot Z79.0 2 RESIDENTIAL (CURRENT) USE OF ANTITHROMBOTI 12/14/2019 LIZZ MEZA MD Ot Z79.8 99 OTHER RESIDENTIAL (CURRENT) DRUG THERAPY 12/14/2019 LIZZ MEZA MD Ot Z87.8 91 PERSONAL HISTORY OF NICOTINE DEPENDENCE 12/14/2019 ROBERT ALCARAZ MD Ot J44.9 CHRONIC OBSTRUCTIVE PULMONARY DISEASE, U 12/14/2019 SURINDER PATTON ARMATURE WINDER Ot Z51.81 ENCOUNTER FOR THERAPEUTIC DRUG LEVEL MON 12/14/2019 SURINDER PATTON ARMATURE WINDER Ot Z79.891 VEGETABLE TESTER (CURRENT) USE OF OPIATE ANALGE 12/14/2019 MINNIE BELL MD Ot J32 .0 CHRONIC MAXILLARY SINUSITIS 12/14/2019 MINNIE BELL MD Ot J38 .7 OTHER DISEASES OF [place] 12/14/2019 MINNIE BELL MD Ot J43 .9 EMPHYSEMA, UNSPECIFIED 12/14/2019 MINNIE BELL MD Ot Z95.810 PRESENCE OF AUTOMATIC (IMPLANTABLE) CARD 12/14/2019 MINNIE BELL MD Ot C76 .0 MALIGNANT NEOPLASM OF HEAD, FACE AND NEC 12/14/2019 MINNIE BELL MD Ot J38 .7 OTHER DISEASES OF [place] 12/14/2019 LIZZ MEZA MD, Ot C32.1 MALIGNANT NEOPLASM OF SUPRAGLOTTIS 12/14/2019 LIZZ MEZA MD Ot I10 ESSENTIAL (PRIMARY) HYPERTENSION 12/14/2019 LIZZ MEZA MD, Ot I25.1 0 ATHSCL HEART DISEASE OF [place] CORONARY 12/14/2019 LIZZ MEZA MD, Ot J44.9 CHRONIC OBSTRUCTIVE PULMONARY DISEASE, U 12/14/2019 LIZZ MEZA MD, Ot K21.9 GASTRO-ESOPHAGEAL REFLUX DISEASE WITHOUT 12/14/2019 LIZZ MEZA MD, Ot Z79.0 2 RESIDENTIAL (CURRENT) USE OF ANTITHROMBOTI 12/14/2019 LIZZ MEZA MD, Ot Z79.8 99 OTHER RESIDENTIAL (CURRENT) DRUG THERAPY 12/14/2019 LIZZ MEZA MD, Ot Z87.8 91 PERSONAL HISTORY OF NICOTINE DEPENDENCE 01/18/2020 ENOCH CARL FACC, ALI FACP CCDS Ot E78.5 HYPERLIPIDEMIA, UNSPECIFIED 01/18/2020 ENOCH CARL FACC, ALI FACP CCDS Ot G47.33 OBSTRUCTIVE SLEEP APNEA (ADULT) (PEDIATR 01/18/2020 ENOCH CARL FACC, ALI FACP CCDS Ot I11.0 HYPERTENSIVE HEART DISEASE WITH HEART FA 01/18/2020 ENOCH CARL FACC, ALI FACP CCDS Ot I25.10 ATHSCL HEART DISEASE OF [place] CORONARY 01/18/2020 ENOCH CARL FACC, ALI FACP CCDS Ot I25.5 ISCHEMIC CARDIOMYOPATHY 01/18/2020 ENOCH CARL FACC, ALI FACP CCDS Ot I44.69 OTHER FASCICULAR BLOCK 01/18/2020 ENOCH CARL FACC, ALI FACP CCDS Ot I50.22 CHRONIC SYSTOLIC (CONGESTIVE) HEART FAIL 01/18/2020 ENOCH CARL FACC, ALI FACP CCDS Ot I71.4 ABDOMINAL AORTIC ANEURYSM, WITHOUT RUPTU 01/18/2020 ENOCH CARL FACC, ALI FACP CCDS Ot J44.9 CHRONIC OBSTRUCTIVE PULMONARY DISEASE, U 01/18/2020 ENOCH CARL FACC, ALI FACP CCDS Ot Z87.19 PERSONAL HISTORY OF OTHER DISEASES OF [place] Procedures There is no data. Results Test Result Range [id number] - 12/24/16 09:08 Serum or plasma urea nitrogen measurement (mass/volume ) 17 mg/dL 7-18 Serum or plasma creatinine measurement (mass/volume) 0.76 mg/dL 0.60-1.30 Serum or plasma urea nitrogen/creatinine mass ratio 22 NRG Serum or plasma creatinine measurement w ith calculation of estimated glomerular filtration rate > NRG Whole blood basic metabolic panel - 01/27 04/14 10:25 Serum or plasma sodium measurement (moles/volume) 137 mmol/L 135-145 Serum or plasma potassium measurement (moles/volume) 4.8 mmol/L 3.6-5.0 Serum or plasma chloride measurement (moles/volume) 102 mmol/L 98-107 Carbon dioxide 25 mmol/L 21-32 Serum or plasma anion gap determination (moles/volume) 10 mmol/L 5-14 Serum or plasma urea nitrogen measurement (mass/volume ) 27 mg/dL 7-18 Serum or plasma creatinine measurement (mass/volume) 0.88 mg/dL 0.60-1.30 Serum or plasma urea nitrogen/creatinine mass ratio 31 NRG Serum or plasma creatinine measurement w ith calculation of estimated glomerular filtration rate > NRG Serum or plasma glucose measurement (mass/volume) 101 mg/dL 70-105 Serum or plasma calcium measurement (mass/volume) 9.8 mg/dL 8.5-10.1 Automated blood complete blood count ( mogram) panel - 03/16/17 10:10 Blood leukocytes automated count (number/volume) 11.7 10*3/uL 4.3-11.0 Blood erythrocytes automated count (number/volume) 4.58 10*6/uL 4.35-5.85 Venous blood hemoglobin measurement (mass/volume) 14.7 g/dL 13.3-17.7 Blood hematocrit (volume fraction) 44 % 40-54 Automated erythrocyte mean corpuscular volume 96 [ foz_us] 80-99 Automated erythrocyte mean corpuscular h emoglobin (mass per erythrocyte) 32 pg 25-34 Automated erythrocyte mean corpuscular h emoglobin concentration measurement (mass/volume) 34 g/dL 32-36 Automated erythrocyte distribution width ratio 14. 7 % 10.0- 14.5 Automated blood platelet count (count/volume) 219 10*3/uL 130-400 Automated blood platelet mean volume measurement 10.1 [foz_us] 7.4-10.4 PT panel in platelet poor plasma by coag ulation assay - 03/16/17 10:10 Prothrombin time (PT) in platelet poor plasma by coagu lation assay 13.2 s 12.2-14.7 INR in platelet poor plasma or blood by coagulation as say 1.0 0.8-1.4 Activated partial thromboplastin time (a PTT) in platelet poor plasma bycoagulation assay - 03/16/17 10:10 Activated partial thromboplastin time (a PTT) in platelet poor plasma bycoagulation assay 37 s 24-35 Arterial blood gas measurement - 8 16:38 Blood pCO2 48 mm[Hg] 35-45 Blood pO2 62 mm[Hg] 79-93 Arterial blood bicarbonate measurement (moles/volume) 28 mmol/L 23-27 Arterial blood base excess by calculation 3.4 mmol /L -2.5-2.5 Arterial blood oxygen saturation measurement 92 % 94-100 * Inhaled oxygen flow rate 2L NRG Arterial blood pH measurement with patient temperature correction 7.38 7.37-7.43 Arterial blood carbon dioxide, total measurement (mole s/volume) 29.6 mmol/L 21.0-31.0 Body site RIGHT RADIAL NRG Assessment of wrist artery patency prior to arterial p uncture POSITIVE NRG Setting of ventilation mode NO NR G Measurement of body temperature 98.6 NRG Automated blood complete blood count (he mogram) panel - 04/26/18 10:36 Blood leukocytes automated count (number/volume) 9.2 10*3/uL 4.3-11.0 Blood erythrocytes automated count (number/volume) 4.51 10*6/uL 4.35-5.85 Venous blood hemoglobin measurement (mass/volume) 14.9 g/dL 13.3-17.7 Blood hematocrit (volume fraction) 43 % 40-54 Automated erythrocyte mean corpuscular volume 96 [ foz_us] 80-99 Automated erythrocyte mean corpuscular h emoglobin (mass per erythrocyte) 33 pg 25-34 Automated erythrocyte mean corpuscular h emoglobin concentration measurement (mass/volume) 35 g/dL 32-36 Automated erythrocyte distribution width ratio 14. 9 % 10.0- 14.5 Automated blood platelet count [...] 5-14 Serum or plasma urea nitrogen measurement (mass/volume ) 51 mg/dL 7-18 Serum or plasma creatinine measurement (mass/volume) 1.30 mg/dL 0.60-1.30 Serum or plasma urea nitrogen/creatinine mass ratio 39 NRG Serum or plasma creatinine measurement w ith calculation of estimated glomerular filtration rate 56 NRG Serum or plasma glucose measurement (mass/volume) 94 mg/dL 70-105 Serum or plasma calcium measurement (mass/volume) 9.3 mg/dL 8.5-10.1 Serum or plasma total bilirubin measurement (mass/volu me) 0.8 mg/dL 0.1-1.0 Serum or plasma alkaline phosphatase fauzia surement (enzymatic activity/volume) 105 U/L 40-136 Serum or plasma aspartate aminotransfera se measurement (enzymatic activity/volume) 26 U/L 5-34 Serum [...] Serum or plasma cholesterol in HDL measurement (mass/v olume) 29 mg/dL 40-60 Cholesterol in LDL [mass/volume] in serum or plasma by direct assay 71 mg/dL 1-129 Serum or plasma cholesterol in VLDL measurement (mass/ volume) 24 mg/dL 5-40 PT panel in platelet poor plasma by coag ulation assay - 04/26/18 10:36 Prothrombin time (PT) in platelet poor plasma by coagu lation assay 13.9 s 12.2-14.7 INR in platelet poor plasma or blood by coagulation as say 1.1 0.8-1.4 Activated partial thromboplastin time (a PTT) in platelet poor plasma bycoagulation assay - 04/26/18 10:36 Activated partial thromboplastin time (a PTT) in platelet poor plasma bycoagulation assay 36 s 24-35 Methicillin resistant Staphylococcus aur eus (MRSA) screening culture - 04/26/18 10:36 Methicillin resistant Staphylococcus aureus (MRSA) scr eening culture NEG NRG Urine drug screening test - 08/17/18 14: 49 Urine amphetamines detection by screening method N egative NRG Urine creatinine measurement (mass/volume) 73 % NRG Urine drug screening test Negative NRG Urine acetaminophen measurement (mass/volume) Nega tive NRG Urine barbiturates detection by screening method N egative NRG Urine benzodiazepines measurement by screening method (mass/volume) Negative NRG Cocaine [mass/volume] in urine Negative NRG Ethanol [mass/volume] in urine Negative NRG Serum or plasma 0-vcimkzvcgk-0,5-dimethy l-3,3-diphenylpyrrolidine (eddp) detection Negative NRG Urine opiates detection Negative NRG Urine phencyclidine (PCP) detection Negative NRG Propoxyphene [mass/volume] in urine Negative NRG Urine salicylates measurement (mass/volume) Negati ve NRG Urine tetrahydrocannabinol detection by screening meth od Negative NRG [id number] - 08/25/18 11:02 Serum or plasma urea nitrogen measurement (mass/volume ) 22 mg/dL 7-18 Serum or plasma creatinine measurement (mass/volume) 0.91 mg/dL 0.60-1.30 Serum or plasma urea nitrogen/creatinine mass ratio 24 NRG Serum or plasma creatinine measurement w ith calculation of estimated glomerular filtration rate > NRG Methicillin resistant Staphylococcus aur eus (MRSA) screening culture - 09/05/18 14:10 Methicillin resistant Staphylococcus aureus (MRSA) scr eening culture NEG NRG Complete blood count (CBC) with automate d white blood cell (WBC) differential - 09/05/18 14:12 Blood leukocytes automated count (number/volume) 8.0 10*3/uL 4.3-11.0 Blood erythrocytes automated count (number/volume) 4.46 10*6/uL 4.35-5.85 Venous blood hemoglobin measurement (mass/volume) 14.9 g/dL 13.3-17.7 Blood hematocrit (volume fraction) 44 % 40-54 Automated erythrocyte mean corpuscular volume 98 [ foz_us] 80-99 Automated erythrocyte mean corpuscular h emoglobin (mass per erythrocyte) 33 pg 25-34 Automated erythrocyte mean corpuscular h emoglobin concentration measurement (mass/volume) 34 g/dL 32-36 Automated erythrocyte distribution width ratio 14. 1 % 10.0- 14.5 Automated blood platelet count [...] 10*3 1.0-4.0 Blood monocytes automated count (number/volume) 1. 0 10*3 0.0-1.0 Automated eosinophil count 0.3 10*3/uL 0 .0-0.3 Automated blood basophil count (count/volume) 0.0 10*3/uL 0.0-0.1 Whole blood basic metabolic panel - 1007/16 14:12 Serum or plasma sodium measurement (moles/volume) 137 mmol/L 135-145 Serum or plasma potassium measurement (moles/volume) 5.3 mmol/L 3.6-5.0 Serum or plasma chloride measurement (moles/volume) 104 mmol/L 98-107 Carbon dioxide 22 mmol/L 21-32 Serum or plasma anion gap determination (moles/volume) 11 mmol/L 5-14 Serum or plasma urea nitrogen measurement (mass/volume ) 37 mg/dL 7-18 Serum or plasma creatinine measurement (mass/volume) 1.24 mg/dL 0.60-1.30 Serum or plasma urea nitrogen/creatinine mass ratio 30 NRG Serum or plasma creatinine measurement w ith calculation of estimated glomerular filtration rate 59 NRG Serum or plasma glucose measurement (mass/volume) 90 mg/dL 70-105 Serum or plasma calcium measurement (mass/volume) 9.4 mg/dL 8.5-10.1 Complete blood count (CBC) with automate d white blood cell (WBC) differential - 10/05/18 18:32 Blood leukocytes automated count (number/volume) 13.4 10*3/uL 4.3-11.0 Blood erythrocytes automated count (number/volume) 4.45 10*6/uL 4.35-5.85 Venous blood hemoglobin measurement (mass/volume) 14.6 g/dL 13.3-17.7 Blood hematocrit (volume fraction) 43 % 40-54 Automated erythrocyte mean corpuscular volume 97 [ foz_us] 80-99 Automated erythrocyte mean corpuscular h emoglobin (mass per erythrocyte) 33 pg 25-34 Automated erythrocyte mean corpuscular h emoglobin concentration measurement (mass/volume) 34 g/dL 32-36 Automated erythrocyte distribution width ratio 14. 3 % 10.0- 14.5 Automated blood platelet count [...] 10*3 1.0-4.0 Blood monocytes automated count (number/volume) 0. 3 10*3 0.0-1.0 Automated eosinophil count 0.0 10*3/uL 0 .0-0.3 Automated blood basophil count (count/volume) 0.0 10*3/uL 0.0-0.1 Blood manual differential performed dete ction - 10/05/18 18:32 Blood monocytes/100 leukocytes 1 % NRG Manual blood segmented neutrophils/100 leukocytes 89 % NRG Blood band neutrophils/100 leukocytes 7 % NRG Manual blood lymphocytes/100 leukocytes 3 % NR Manual eosinophils/100 leukocytes in nose 0 % NR Manual blood basophils/100 leukocytes 0 % NR Blood erythrocyte morphology finding identification [facility] Whole blood basic metabolic panel - 06/15 18:32 Serum or plasma sodium measurement (moles/volume) 136 mmol/L 135-145 Serum or plasma potassium measurement (moles/volume) 5.6 mmol/L 3.6-5.0 Serum or plasma chloride measurement (moles/volume) 102 mmol/L 98-107 Carbon dioxide 23 mmol/L 21-32 Serum or plasma anion gap determination (moles/volume) 11 mmol/L 5-14 Serum or plasma urea nitrogen measurement (mass/volume ) 22 mg/dL -18 Serum or plasma creatinine measurement (mass/volume) 0.85 mg/dL 0.60-1.30 Serum or plasma urea nitrogen/creatinine mass ratio 26 NRG Serum or plasma creatinine measurement w ith calculation of estimated glomerular filtration rate > NRG Serum or plasma glucose measurement (mass/volume) 123 mg/dL 70-105 Serum or plasma calcium measurement (mass/volume) 9.4 mg/dL 8.5-10.1 PT panel in platelet poor plasma by coag ulation assay - 10/05/18 18:32 Prothrombin time (PT) in platelet poor plasma by coagu lation assay 14.2 s 12.2-14.7 INR in platelet poor plasma or blood by coagulation as say 1.1 0.8-1.4 Activated partial thromboplastin time (a PTT) in platelet poor plasma bycoagulation assay - 10/05/18 18:32 Activated partial thromboplastin time (a PTT) in platelet poor plasma bycoagulation assay 33 s 24-35 Complete blood count (CBC) with automate d white blood cell (WBC) differential - 01/06/19 17:35 Blood leukocytes automated count (number/volume) 6.4 10*3/uL 4.3-11.0 Blood erythrocytes automated count (number/volume) 3.51 10*6/uL 4.35-5.85 Venous blood hemoglobin measurement (mass/volume) 10.6 g/dL 13.3-17.7 Blood hematocrit (volume fraction) 34 % 40-54 Automated erythrocyte mean corpuscular volume 97 [ foz_us] 80-99 Automated erythrocyte mean corpuscular h emoglobin (mass per erythrocyte) 30 pg 25-34 Automated erythrocyte mean corpuscular h emoglobin concentration measurement (mass/volume) 31 g/dL 32-36 Automated erythrocyte distribution width ratio 14. 6 % 10.0- 14.5 Automated blood platelet count [...] 10*3 1.0-4.0 Blood monocytes automated count (number/volume) 0. 6 10*3 0.0-1.0 Automated eosinophil count 0.2 10*3/uL 0 .0-0.3 Automated blood basophil count (count/volume) 0.0 10*3/uL 0.0-0.1 Fibrin D-dimer FEU measurement in platel et poor plasma (mass/volume) - 01/06/19 17:35 Fibrin [...] 5-14 Serum or plasma urea nitrogen measurement (mass/volume ) 33 mg/dL 7-18 Serum or plasma creatinine measurement (mass/volume) 0.95 mg/dL 0.60-1.30 Serum or plasma urea nitrogen/creatinine mass ratio 35 NRG Serum or plasma creatinine measurement w ith calculation of estimated glomerular filtration rate > NRG Serum or plasma glucose measurement (mass/volume) 109 mg/dL 70-105 Serum or plasma calcium measurement (mass/volume) 8.7 mg/dL 8.5-10.1 Serum or plasma total bilirubin measurement (mass/volu me) 0.3 mg/dL 0.1-1.0 Serum or plasma alkaline phosphatase fauzia surement (enzymatic activity/volume) 103 U/L 40-136 Serum or plasma aspartate aminotransfera se measurement (enzymatic activity/volume) 23 U/L 5-34 Serum or plasma alanine aminotransferase measurement (enzymatic activity/volume) 19 U/L 0-55 Serum or plasma protein measurement (mass/volume) 7.4 g/dL 6.4-8.2 Serum or plasma albumin measurement (mass/volume) 3.9 g/dL 3.2-4.5 CALCIUM CORRECTED 8.8 mg/dL 8.5-10.1 Magnesium - 01/06/19 17:35 Magnesium 1.9 mg/dL 1.8-2.4 Serum or plasma lithium measurement (mol es/volume) - 01/06/19 17:35 BNP level 200.8 pg/mL <100.0 Bacterial blood culture - 01/06/19 17:35 Bacterial blood culture NG NRG Complete blood count (CBC) with automate d white blood cell (WBC) differential - 06/06/19 11:00 Blood leukocytes automated count (number/volume) 5.9 10*3/uL 4.3-11.0 Blood erythrocytes automated count (number/volume) 3.19 10*6/uL 4.35-5.85 Venous blood hemoglobin measurement (mass/volume) 7.8 g/dL 13.3-17.7 Blood hematocrit (volume fraction) 27 % 40-54 Automated erythrocyte mean corpuscular volume 85 [ foz_us] 80-99 Automated erythrocyte mean corpuscular h emoglobin (mass per erythrocyte) 25 pg 25-34 Automated erythrocyte mean corpuscular h emoglobin concentration measurement (mass/volume) 29 g/dL 32-36 Automated erythrocyte distribution width ratio 20. 3 % 10.0- 14.5 Automated blood platelet count (count/volume) 217 10*3/uL 130-400 Automated blood platelet mean volume measurement 11.7 [foz_us] 7.4-10.4 Automated blood neutrophils/100 leukocytes 78 % 42-75 Automated blood lymphocytes/100 leukocytes 9 % 12-44 Blood monocytes/100 leukocytes 10 % 0-12 Automated blood eosinophils/100 leukocytes 3 % 0-10 Automated blood basophils/100 leukocytes 0 % 0-10 Blood neutrophils automated count (number/volume) 4.6 10*3 1.8-7.8 Blood lymphocytes automated count (number/volume) 0.5 10*3 1.0-4.0 Blood monocytes automated count (number/volume) 0. 6 10*3 0.0-1.0 Automated eosinophil count 0.2 10*3/uL 0 .0-0.3 Automated blood basophil count (count/volume) 0.0 10*3/uL 0.0-0.1 Comprehensive metabolic panel - 06/06/19 11:00 Serum or plasma sodium measurement (moles/volume) 141 mmol/L 135-145 Serum or plasma potassium measurement (moles/volume) 4.2 mmol/L 3.6-5.0 Serum or plasma chloride measurement (moles/volume) 102 mmol/L 98-107 Carbon dioxide 28 mmol/L 21-32 Serum or plasma anion gap determination (moles/volume) 11 mmol/L 5-14 Serum or plasma urea nitrogen measurement (mass/volume ) 26 mg/dL 7-18 Serum or plasma creatinine measurement (mass/volume) 1.01 mg/dL 0.60-1.30 Serum or plasma urea nitrogen/creatinine mass ratio 26 NRG Serum or plasma creatinine measurement w ith calculation of estimated glomerular filtration rate > NRG Serum or plasma glucose measurement (mass/volume) 109 mg/dL 70-105 Serum or plasma calcium measurement (mass/volume) 8.5 mg/dL 8.5-10.1 Serum or plasma total bilirubin measurement (mass/volu me) 0.5 mg/dL 0.1-1.0 Serum or plasma alkaline phosphatase fauzia surement (enzymatic activity/volume) 145 U/L 40-136 Serum or plasma aspartate aminotransfera se measurement (enzymatic activity/volume) 20 U/L 5-34 Serum or plasma alanine aminotransferase measurement (enzymatic activity/volume) 18 U/L 0-55 Serum or plasma protein measurement (mass/volume) 7.1 g/dL 6.4-8.2 Serum or plasma albumin measurement (mass/volume) 3.6 g/dL 3.2-4.5 CALCIUM CORRECTED 8.8 mg/dL 8.5-10.1 Magnesium - 06/06/19 11:00 Magnesium 2.0 mg/dL 1.8-2.4 Serum or plasma troponin i.cardiac measu rement (mass/volume) - 06/06/19 11:00 Serum or plasma troponin i.cardiac measurement (mass/v olume) 0.034 ng/mL <0.028 Serum or plasma lithium measurement (mol es/volume) - 06/06/19 11:00 BNP PT 1010.0 pg/mL <100.0 Arterial blood gas measurement - 9 11:15 Blood pCO2 48 mm[Hg] 35-45 Blood pO2 39 mm[Hg] 79-93 Arterial blood bicarbonate measurement (moles/volume) 29 mmol/L 23-27 Arterial blood base excess by calculation 4.3 mmol /L -2.5-2.5 Arterial blood oxygen saturation measurement 64 % 94-100 * Inhaled oxygen flow rate 40% NRG Arterial blood pH measurement with patient temperature correction 7.39 7.37-7.43 Arterial blood carbon dioxide, total measurement (mole s/volume) 30.3 mmol/L 21.0-31.0 Body site RT RADIAL NRG Assessment of wrist artery patency prior to arterial p uncture YES-POS NRG Setting of ventilation mode NO NR G Measurement of body temperature 99.1 NRG RED CELLS LEUKO REDUCED AS1 - 06/06/19 1 4:43 RED CELLS LEUKO REDUCED AS1 T RANSFUSED 06/06/19 1559 NRG Blood type T Indirect antibody screen pa shanice - 06/06/19 14:43 WRISTBAND NUMBER [id number] NRG ABO+Rh group AP NRG Blood group antibody screen NEGATIVE NR G Complete blood count (CBC) with automate d white blood cell (WBC) differential - 06/07/19 03:13 Blood leukocytes automated count (number/volume) 5.7 10*3/uL 4.3-11.0 Blood erythrocytes automated count (number/volume) 3.36 10*6/uL 4.35-5.85 Venous blood hemoglobin measurement (mass/volume) 8.5 g/dL 13.3-17.7 Blood hematocrit (volume fraction) 29 % 40-54 Automated erythrocyte mean corpuscular volume 85 [ foz_us] 80-99 Automated erythrocyte mean corpuscular h emoglobin (mass per erythrocyte) 25 pg 25-34 Automated erythrocyte mean corpuscular h emoglobin concentration measurement (mass/volume) 30 g/dL 32-36 Automated erythrocyte distribution width ratio 19. 2 % 10.0- 14.5 Automated blood platelet count (count/volume) 210 10*3/uL 130-400 Automated blood platelet mean volume measurement 12.0 [foz_us] 7.4-10.4 Automated blood neutrophils/100 leukocytes 66 % 42-75 Automated blood lymphocytes/100 leukocytes 14 % 12-44 Blood monocytes/100 leukocytes 15 % 0-12 Automated blood eosinophils/100 leukocytes 5 % 0-10 Automated blood basophils/100 leukocytes 0 % 0-10 Blood neutrophils automated count (number/volume) 3.8 10*3 1.8-7.8 Blood lymphocytes automated count (number/volume) 0.8 10*3 1.0-4.0 Blood monocytes automated count (number/volume) 0. 8 10*3 0.0-1.0 Automated eosinophil count 0.3 10*3/uL 0 .0-0.3 Automated blood basophil count (count/volume) 0.0 10*3/uL 0.0-0.1 Comprehensive metabolic panel - 06/07/19 03:13 Serum or plasma sodium measurement (moles/volume) 134 mmol/L 135-145 Serum or plasma potassium measurement (moles/volume) 7.6 mmol/L 3.6-5.0 Serum or plasma chloride measurement (moles/volume) 101 mmol/L 98-107 Carbon dioxide 18 mmol/L 21-32 Serum or plasma anion gap determination (moles/volume) 15 mmol/L 5-14 Serum or plasma urea nitrogen measurement (mass/volume ) 14 mg/dL 7-18 Serum or plasma creatinine measurement (mass/volume) 0.78 mg/dL 0.60-1.30 Serum or plasma urea nitrogen/creatinine mass ratio 18 NRG Serum or plasma creatinine measurement w ith calculation of estimated glomerular filtration rate > NRG Serum or plasma glucose measurement (mass/volume) 93 mg/dL 70-105 Serum or plasma calcium measurement (mass/volume) 4.2 mg/dL 8.5-10.1 Serum or plasma total bilirubin measurement (mass/volu me) 3.1 mg/dL 0.1-1.0 Serum or plasma alkaline phosphatase fauzia surement (enzymatic activity/volume) 60 U/L 40-136 Serum or plasma aspartate aminotransfera se measurement (enzymatic activity/volume) 19 U/L 5-34 Serum or plasma alanine aminotransferase measurement (enzymatic activity/volume) 19 U/L 0-55 Serum or plasma protein measurement (mass/volume) 6.3 g/dL 6.4-8.2 Serum or plasma albumin measurement (mass/volume) 3.6 g/dL 3.2-4.5 CALCIUM CORRECTED 4.5 mg/dL 8.5-10.1 Magnesium - 06/07/19 03:13 Magnesium 0.7 mg/dL 1.8-2.4 Whole blood basic metabolic panel - 05/29 04:42 Serum or plasma sodium measurement (moles/volume) 139 mmol/L 135-145 Serum or plasma potassium measurement (moles/volume) 3.9 mmol/L 3.6-5.0 Serum or plasma chloride measurement (moles/volume) 98 mmol/L 98-107 Carbon dioxide 28 mmol/L 21-32 Serum or plasma anion gap determination (moles/volume) 13 mmol/L 5-14 Serum or plasma urea nitrogen measurement (mass/volume ) 24 mg/dL 7-18 Serum or plasma creatinine measurement (mass/volume) 0.96 mg/dL 0.60-1.30 Serum or plasma urea nitrogen/creatinine mass ratio 25 NRG Serum or plasma creatinine measurement w ith calculation of estimated glomerular filtration rate > NRG Serum or plasma glucose measurement (mass/volume) 89 mg/dL 70-105 Serum or plasma calcium measurement (mass/volume) 8.5 mg/dL 8.5-10.1 Magnesium - 06/07/19 04:42 Magnesium 1.9 mg/dL 1.8-2.4 Serum or plasma lithium measurement (mol es/volume) - 06/08/19 05:20 BNP PT 414.3 pg/mL <100.0 Complete blood count (CBC) with automate d white blood cell (WBC) differential - 06/08/19 05:25 Blood leukocytes automated count (number/volume) 4.7 10*3/uL 4.3-11.0 Blood erythrocytes automated count (number/volume) 3.53 10*6/uL 4.35-5.85 Venous blood hemoglobin measurement (mass/volume) 8.9 g/dL 13.3-17.7 Blood hematocrit (volume fraction) 30 % 40-54 Automated erythrocyte mean corpuscular volume 86 [ foz_us] 80-99 Automated erythrocyte mean corpuscular h emoglobin (mass per erythrocyte) 25 pg 25-34 Automated erythrocyte mean corpuscular h emoglobin concentration measurement (mass/volume) 30 g/dL 32-36 Automated erythrocyte distribution width ratio 19. 4 % 10.0- 14.5 Automated blood platelet count (count/volume) 216 10*3/uL 130-400 Automated blood platelet mean volume measurement 11.6 [foz_us] 7.4-10.4 Automated blood neutrophils/100 leukocytes 63 % 42-75 Automated blood lymphocytes/100 leukocytes 15 % 12-44 Blood monocytes/100 leukocytes 15 % 0-12 Automated blood eosinophils/100 leukocytes 7 % 0-10 Automated blood basophils/100 leukocytes 0 % 0-10 Blood neutrophils automated count (number/volume) 3.0 10*3 1.8-7.8 Blood lymphocytes automated count (number/volume) 0.7 10*3 1.0-4.0 Blood monocytes automated count (number/volume) 0. 7 10*3 0.0-1.0 Automated eosinophil count 0.3 10*3/uL 0 .0-0.3 Automated blood basophil count (count/volume) 0.0 10*3/uL 0.0-0.1 Comprehensive metabolic panel - 06/08/19 05:25 Serum or plasma sodium measurement (moles/volume) 135 mmol/L 135-145 Serum or plasma potassium measurement (moles/volume) 4.2 mmol/L 3.6-5.0 Serum or plasma chloride measurement (moles/volume) 92 mmol/L 98-107 Carbon dioxide 34 mmol/L 21-32 Serum or plasma anion gap determination (moles/volume) 9 mmol/L 5-14 Serum or plasma urea nitrogen measurement (mass/volume ) 23 mg/dL 7-18 Serum or plasma creatinine measurement (mass/volume) 0.94 mg/dL 0.60-1.30 Serum or plasma urea nitrogen/creatinine mass ratio 24 NRG Serum or plasma creatinine measurement w ith calculation of estimated glomerular filtration rate > NRG Serum or plasma glucose measurement (mass/volume) 93 mg/dL 70-105 Serum or plasma calcium measurement (mass/volume) 8.8 mg/dL 8.5-10.1 Serum or plasma total bilirubin measurement (mass/volu me) 0.6 mg/dL 0.1-1.0 Serum or plasma alkaline phosphatase fauzia surement (enzymatic activity/volume) 137 U/L 40-136 Serum or plasma aspartate aminotransfera se measurement (enzymatic activity/volume) 27 U/L 5-34 Serum or plasma alanine aminotransferase measurement (enzymatic activity/volume) 18 U/L 0-55 Serum or plasma protein measurement (mass/volume) 7.1 g/dL 6.4-8.2 Serum or plasma albumin measurement (mass/volume) 3.5 g/dL 3.2-4.5 CALCIUM CORRECTED 9.2 mg/dL 8.5-10.1 Complete blood count (CBC) with automate d white blood cell (WBC) differential - 06/09/19 05:25 Blood leukocytes automated count (number/volume) 7.1 10*3/uL 4.3-11.0 Blood erythrocytes automated count (number/volume) 3.35 10*6/uL 4.35-5.85 Venous blood hemoglobin measurement (mass/volume) 8.3 g/dL 13.3-17.7 Blood hematocrit (volume fraction) 28 % 40-54 Automated erythrocyte mean corpuscular volume 85 [ foz_us] 80-99 Automated erythrocyte mean corpuscular h emoglobin (mass per erythrocyte) 25 pg 25-34 Automated erythrocyte mean corpuscular h emoglobin concentration measurement (mass/volume) 29 g/dL 32-36 Automated erythrocyte distribution width ratio 19. 2 % 10.0- 14.5 Automated blood platelet count (count/volume) 230 10*3/uL 130-400 Automated blood platelet mean volume measurement 11.3 [foz_us] 7.4-10.4 Automated blood neutrophils/100 leukocytes 91 % 42-75 Automated blood lymphocytes/100 leukocytes 5 % 12-44 Blood monocytes/100 leukocytes 4 % 0-12 Automated blood eosinophils/100 leukocytes 0 % 0-10 Automated blood basophils/100 leukocytes 0 % 0-10 Blood neutrophils automated count (number/volume) 6.4 10*3 1.8-7.8 Blood lymphocytes automated count (number/volume) 0.3 10*3 1.0-4.0 Blood monocytes automated count (number/volume) 0. 3 10*3 0.0-1.0 Automated eosinophil count 0.0 10*3/uL 0 .0-0.3 Automated blood basophil count (count/volume) 0.0 10*3/uL 0.0-0.1 Comprehensive metabolic panel - 06/09/19 05:25 Serum or plasma sodium measurement (moles/volume) 133 mmol/L 135-145 Serum or plasma potassium measurement (moles/volume) 4.4 mmol/L 3.6-5.0 Serum or plasma chloride measurement (moles/volume) 93 mmol/L 98-107 Carbon dioxide 29 mmol/L 21-32 Serum or plasma anion gap determination (moles/volume) 11 mmol/L 5-14 Serum or plasma urea nitrogen measurement (mass/volume ) 29 mg/dL 7-18 Serum or plasma creatinine measurement (mass/volume) 1.07 mg/dL 0.60-1.30 Serum or plasma urea nitrogen/creatinine mass ratio 27 NRG Serum or plasma creatinine measurement w ith calculation of estimated glomerular filtration rate > NRG Serum or plasma glucose measurement (mass/volume) 188 mg/dL 70-105 Serum or plasma calcium measurement (mass/volume) 8.5 mg/dL 8.5-10.1 Serum or plasma total bilirubin measurement (mass/volu me) 0.5 mg/dL 0.1-1.0 Serum or plasma alkaline phosphatase fauzia surement (enzymatic activity/volume) 129 U/L 40-136 Serum or plasma aspartate aminotransfera se measurement (enzymatic activity/volume) 21 U/L 5-34 Serum or plasma alanine aminotransferase measurement (enzymatic activity/volume) 22 U/L 0-55 Serum or plasma protein measurement (mass/volume) 6.8 g/dL 6.4-8.2 Serum or plasma albumin measurement (mass/volume) 3.5 g/dL 3.2-4.5 CALCIUM CORRECTED 8.9 mg/dL 8.5-10.1 Stool occult blood screen - 06/09/19 17: 00 Stool gastrointestinal hemoglobin detection NEGATI VE NEGATIVE Automated blood complete blood count (he mogram) panel - 06/11/19 05:24 Blood leukocytes automated count (number/volume) 9.8 10*3/uL 4.3-11.0 Blood erythrocytes automated count (number/volume) 3.66 10*6/uL 4.35-5.85 Venous blood hemoglobin measurement (mass/volume) 9.1 g/dL 13.3-17.7 Blood hematocrit (volume fraction) 31 % 40-54 Automated erythrocyte mean corpuscular volume 85 [ foz_us] 80-99 Automated erythrocyte mean corpuscular h emoglobin (mass per erythrocyte) 25 pg 25-34 Automated erythrocyte mean corpuscular h emoglobin concentration measurement (mass/volume) 29 g/dL 32-36 Automated erythrocyte distribution width ratio 19. 4 % 10.0- 14.5 Automated blood platelet count (count/volume) 240 10*3/uL 130-400 Automated blood platelet mean volume measurement 10.5 [foz_us] 7.4-10.4 Whole blood basic metabolic panel - 05/29 03/17 05:24 Serum or plasma sodium measurement (moles/volume) 135 mmol/L 135-145 Serum or plasma potassium measurement (moles/volume) 4.2 mmol/L 3.6-5.0 Serum or plasma chloride measurement (moles/volume) 94 mmol/L 98-107 Carbon dioxide 29 mmol/L 21-32 Serum or plasma anion gap determination (moles/volume) 12 mmol/L 5-14 Serum or plasma urea nitrogen measurement (mass/volume ) 48 mg/dL 7-18 Serum or plasma creatinine measurement (mass/volume) 1.10 mg/dL 0.60-1.30 Serum or plasma urea nitrogen/creatinine mass ratio 44 NRG Serum or plasma creatinine measurement w ith calculation of estimated glomerular filtration rate > NRG Serum or plasma glucose measurement (mass/volume) 111 mg/dL 70-105 Serum or plasma calcium measurement (mass/volume) 8.5 mg/dL 8.5-10.1 Encounters ACCT No. Visit Date/Time Discharge Status Pt. Type Provider Facility Loc./Unit Complaint [id number] 12/18/2019 08:00:00 020 23:59:59 CLS Outpatient ENOCH CARL FACC, JOSE CARLOS GARCIA CC DS [facility] RAD AAA,COPD,CAD,HTN,CHRONIC SYSTOLIC CHF [id number] 10/06/2019 08:45:00 23:59:59 CLS Preadmit MINNIE BELL MD [facility] RAD CA OF LARYNX [id number] 06/21/2019 15:04:00 23:59:59 CLS Outpatient LIZZ MEZA MD [facility] ONC [id number] 06/06/2019 12:33:00 17:48:00 DIS Inpatient SHANNAN WALKER MD [facility] 4TH ACUTE ON CHRONIC CHF EX ACERBATION [id number] 12/16/2018 14:11:00 00:01:00 DIS Outpatient LIZZ MEZA MD [facility] ONC [id number] 01/06/2019 16:43:00 20:49:00 DIS Emergency MERYL CLIFFORD [facility] ER COUGH,SOB,Hx COPD [id number] 12/13/2018 14:03:00 00:01:00 DIS Outpatient LIZZ MEZA MD [facility] ONC [id number] 10/05/2018 18:24:00 22:40:00 DIS Emergency ADAMA DOELVA [facility] ER MOUTH BLEEDING;COPD [id number] 09/20/2018 11:03:00 23:59:59 CLS Outpatient MINNIE BELL MD [facility] RAD EPIGLOTTIC LESION [id number] 09/09/2018 07:35:00 11:25:00 DIS Outpatient MINNIE BELL MD [facility] SDC EPIGLOTIC LESION [id number] 09/05/2018 13:19:00 14:25:00 DIS Outpatient MINNIE BELL MD [facility] PREOP EPIGLOTIC LESION [id number] 08/25/2018 10:57:00 23:59:59 CLS Outpatient MINNIE BELL MD [facility] RAD LARYNGEAL ULCER [id number] 08/17/2018 14:33:00 23:59:59 CLS Outpatient SURINDER PATTON APRN [facility] LAB Z79.891 [id number] 06/06/2018 13:00:00 23:59:59 CLS Preadmit JOSE CARLOS KENDALL MD, FACC, FACP CCDS [facility] PULM COPD [id number] 03/07/2018 14:25:00 00:01:00 DIS Outpatient JOSE CARLOS KENDALL MD, FACC, FACP CC DS [facility] PULM COPD [id number] 04/26/2018 10:10:00 23:59:59 CLS Outpatient COLT MARCOS [facility] CATH CHEST DISCOMFOR T [id number] 01/17/2018 14:45:00 23:59:59 CLS Outpatient ROBERT ALCARAZ MD [facility] RAD COPD,COUGH,HYPOXIA [id number] 12/31/2017 11:45:00 23:59:59 CLS Preadmit CEEC [place] E ARMATURE WINDER [facility] RAD J43.8 COPD [id number] 12/27/2017 16:10:00 018 23:59:59 CLS Outpatient CECE [place] ARMATURE WINDER [facility] LAB J43.8 [id number] 12/27/2017 15:45:00 018 23:59:59 CLS Preadmit CECE [place] E ARMATURE WINDER [facility] RT J43.8 COPD [id number] 12/21/2017 12:07:00 23:59:59 CLS Outpatient JOSE CARLOS KENDALL MD, FACC, FACP CC DS [facility] CARD SOB,CAD [id number] 12/16/2017 13:32:00 018 23:59:59 CLS Outpatient JOSE CARLOS KENDALL MD, FACC, FACP CC DS [facility] CARD SOB,CAD [id number] 12/07/2017 14:34:00 018 23:59:59 CLS Outpatient ROBERT ALCARAZ MD [facility] RAD COPD,CHF [id number] 03/16/2017 09:49:00 017 16:30:00 DIS Outpatient WHIT MARCIAL DO [facility] RAD BACK PAIN [id number] 02/10/2017 09:59:00 017 23:59:59 CLS Outpatient JOSE CARLOS KENDALL MD, FACC, FACP CC DS [facility] RAD CAD,HTN,HLP ,ISCHEMIC CARDIOMYOPATHY [id number] 02/05/2017 13:45:00 017 23:59:59 CLS Outpatient TIMOTEO CHAPMAN MD [facility] RAD LOW BACK PAIN [id number] 01/01/2017 08:32:00 017 09:41:00 DIS Outpatient TIMOTEO CHAPMAN MD [facility] CARD DISC DISORDER,SACOROCOC CYGEAL DISORDER [id number] 12/24/2016 08:50:00 017 23:59:59 CLS Outpatient SURINDER PATTON APRN [facility] RAD ABNORMAL CHEST XRAY [id number] 12/22/2016 08:59:00 017 23:59:59 CLS Outpatient SURINDER PATTON APRN [facility] RAD SOB [id number] 12/21/2016 08:20:00 017 16:30:00 DIS Outpatient CARMELO DAVIS DO [facility] SLEEP COPD,CAD,FATIGUE [id number] 10/29/2016 07:47:00 016 23:59:59 CLS Outpatient JOSE CARLOS KENDALL MD, FACC, FACP CC DS [facility] CARD CAD,VIJI [id number] 10/27/2016 15:00:00 016 23:59:59 CLS Outpatient JOSE CARLOS KENDALL MD, FACCP CC DS [facility] CARD SOB,CAD [id number] 10/21/2016 10:59:00 016 23:59:59 CLS Outpatient ROBERT ALCARAZ MD [facility] RAD DYSPNEA [id number] 08/20/2015 07:20:00 015 09:50:00 DIS Outpatient JOSE CARLOS KENDALL MD, FACCP CC DS [facility] CATH [id number] 08/12/2015 12:32:00 015 13:57:00 DIS Outpatient ARI CARL, TIMOTEO Sanchez [facility] CARD [id number] 08/07/2015 13:02:00 015 23:59:59 CLS Outpatient LISSA CARL, ROBERT Bryant [facility] RT [id number] 05/09/2014 15:46:00 014 23:59:59 CLS Outpatient ENOCH CARL FACC, ALI SIXTOP CC DS [facility] LAB [id number] 06/11/2020 07:19:[address] Outpatient ENOCH CARL FACC, ALI FACP CCDS [facility] CHEST DISCOMFORT,CAD,COPD,HTN,HL,VIJI,SOB [id number] 06/10/2020 07:20:[address] Outpatient ENOCH CARL [place]AC[place], ALI FACP CCDS [facility] RAD CAROTID ART DISEASE,AAA [id number] 10/16/2016 06:49:00 Document Registration [id number] 01/23/2015 10:03:00 Document Registration [id number] 10/14/2012 02:00:00 Document Registration [id number] 05/06/2012 15:54:00 Document Registration [id number] 05/05/2012 17:07:00 Document Registration [id number] 02/09/2012 05:40:00 Document Registration [id number] 02/08/2012 10:04:00 Document Registration
[2020-06-11 07:51] VITALS: BP 90/47
[2020-06-11 08:08] LABS: HEMOGLOBIN 13.5 G/DL (13.3-17.7); MEAN PLATELET VOLUME 10.8 FL (7.4-10.4); RED CELL DISTRIBUTION WIDTH 13.5 % (10.0-14.5); WHITE BLOOD COUNT 9.6 10^3/uL (4.3-11.0)
[2020-06-11 08:24] LABS: PROTHROMBIN TIME PATIENT 13.4 SEC (12.2-14.7)
[2020-06-11 08:33] LABS: ALBUMIN 4.1 GM/DL (3.2-4.5); BILIRUBIN,TOTAL 0.5 MG/DL (0.1-1.0); CALCIUM 9.1 MG/DL (8.5-10.1); CREATININE SERUM 2.07 MG/DL (0.60-1.30); POTASSIUM 5.2 MMOL/L (3.6-5.0); TOTAL PROTEIN 8.1 GM/DL (6.4-8.2)
--- NOTE | 2020-06-11 09:51 | NUR ---
DR KENDALL SPOKE WITH DR PENA IN ER. PATIENT TAKEN BY WHEEL CHAIR TO ER. IV IN PLACE.
== END ==
LOC: CATH 07:19
PROVIDERS: ATTEND Internal Medicine Cardiovascular Disease
DX: R07.9 Chest pain, unspecified (principal); R06.09 Other forms of dyspnea; I25.5 Ischemic cardiomyopathy; I50.22 Chronic systolic (congestive) heart failure; J44.9 Chronic obstructive pulmonary disease, unspecified; R09.02 Hypoxemia; E66.2 Morbid (severe) obesity with alveolar hypoventilation; I47.9 Paroxysmal tachycardia, unspecified; I11.0 Hypertensive heart disease with heart failure; I25.10 Atherosclerotic heart disease of native coronary artery without angina pectoris; E78.5 Hyperlipidemia, unspecified; Z68.41 Body mass index [BMI] 40.0-44.9, adult; M19.90 Unspecified osteoarthritis, unspecified site; Z79.899 Other long term (current) drug therapy; E74.39 Other disorders of intestinal carbohydrate absorption; M54.9 Dorsalgia, unspecified; G89.29 Other chronic pain; Z87.891 Personal history of nicotine dependence; I71.4 Abdominal aortic aneurysm, without rupture; Z79.891 Long term (current) use of opiate analgesic; C32.9 Malignant neoplasm of larynx, unspecified; I77.89 Other specified disorders of arteries and arterioles; Z79.82 Long term (current) use of aspirin; Z88.8 Allergy status to other drugs, medicaments and biological substances; Z53.9 Procedure and treatment not carried out, unspecified reason; Z68.43 Body mass index [BMI] 50.0-59.9, adult
CPT/HCPCS: 36415; 80053; 80061; 85027; 85610; 85730; 87081

== ENCOUNTER → 2020-06-12 | Outpatient (CLI) | payer BC ==
[~2020-06-12] MED LIST changes: +CEPH500T PO
== END ==
LOC: WOUNDCARE 12:42
PROVIDERS: ATTEND Surgery
DX: I87.331 Chronic venous hypertension (idiopathic) with ulcer and inflammation of right lower extremity (principal); I70.232 Atherosclerosis of native arteries of right leg with ulceration of calf; L97.212 Non-pressure chronic ulcer of right calf with fat layer exposed; I89.0 Lymphedema, not elsewhere classified; N18.3 Chronic kidney disease, stage 3 (moderate); J44.9 Chronic obstructive pulmonary disease, unspecified; I50.9 Heart failure, unspecified; I95.9 Hypotension, unspecified; I25.2 Old myocardial infarction; M19.90 Unspecified osteoarthritis, unspecified site; G62.9 Polyneuropathy, unspecified; Z92.3 Personal history of irradiation; Z79.01 Long term (current) use of anticoagulants; Z87.891 Personal history of nicotine dependence; Z95.5 Presence of coronary angioplasty implant and graft; Z95.810 Presence of automatic (implantable) cardiac defibrillator; Z85.819 Personal history of malignant neoplasm of unspecified site of lip, oral cavity, and pharynx
CPT/HCPCS: 99213

== ENCOUNTER → 2020-06-12 | Outpatient (CLI) | payer BC ==
[2020-06-12 12:40] LABS: BASOPHILS % (AUTO) 0 % (0-10); EOSINOPHILS # (AUTO) 0.4 10^3/uL (0.0-0.3); EOSINOPHILS % (AUTO) 6 % (0-10); HEMATOCRIT 39 % (40-54); HEMOGLOBIN 12.8 G/DL (13.3-17.7); LYMPHOCYTES # (AUTO) 0.7 X 10^3 (1.0-4.0); LYMPHOCYTES % (AUTO) 13 % (12-44); MEAN CORPUSCULAR HEMOGLOBIN 33 PG (25-34); MEAN CORPUSCULAR HGB CONC 33 G/DL (32-36); MEAN CORPUSCULAR VOLUME 100 FL (80-99); MEAN PLATELET VOLUME 9.9 FL (7.4-10.4); MONOCYTES # (AUTO) 0.6 X 10^3 (0.0-1.0); MONOCYTES % (AUTO) 11 % (0-12); NEUTROPHILS # (AUTO) 4.1 X 10^3 (1.8-7.8); NEUTROPHILS % (AUTO) 70 % (42-75); PLATELET COUNT 162 10^3/uL (130-400); RED CELL DISTRIBUTION WIDTH 13.8 % (10.0-14.5); WHITE BLOOD COUNT 5.8 10^3/uL (4.3-11.0)
[2020-06-12 12:49] LABS: ALBUMIN 3.9 GM/DL (3.2-4.5); POTASSIUM 4.6 MMOL/L (3.6-5.0)
[2020-06-12 12:50] LABS: CALCIUM 8.9 MG/DL (8.5-10.1)
[2020-06-12 12:52] LABS: TOTAL PROTEIN 7.4 GM/DL (6.4-8.2)
[2020-06-12 12:53] LABS: BILIRUBIN,TOTAL 0.5 MG/DL (0.1-1.0)
[2020-06-12 12:55] LABS: CREATININE SERUM 1.27 MG/DL (0.60-1.30)
== END ==
LOC: LAB 12:18
PROVIDERS: ATTEND Nurse Practitioner Family
DX: N28.9 Disorder of kidney and ureter, unspecified (principal); I95.9 Hypotension, unspecified
CPT/HCPCS: 36415; 80053; 85025

== ENCOUNTER → 2020-06-19 | Outpatient (CLI) | payer BC | LOC: WOUNDCARE 14:04 | PROVIDERS: ATTEND Orthopaedic Surgery Hand Surgery | DX: I87.331 Chronic venous hypertension (idiopathic) with ulcer and inflammation of right lower extremity (principal); L97.212 Non-pressure chronic ulcer of right calf with fat layer exposed; I89.0 Lymphedema, not elsewhere classified; N18.3 Chronic kidney disease, stage 3 (moderate); J44.9 Chronic obstructive pulmonary disease, unspecified; I25.2 Old myocardial infarction; I50.9 Heart failure, unspecified; Z95.810 Presence of automatic (implantable) cardiac defibrillator; Z87.891 Personal history of nicotine dependence; M19.90 Unspecified osteoarthritis, unspecified site; G62.9 Polyneuropathy, unspecified; Z92.3 Personal history of irradiation; Z95.5 Presence of coronary angioplasty implant and graft; I42.9 Cardiomyopathy, unspecified; Z85.818 Personal history of malignant neoplasm of other sites of lip, oral cavity, and pharynx; N40.0 Benign prostatic hyperplasia without lower urinary tract symptoms | CPT/HCPCS: 99213 ==

== ENCOUNTER → 2020-06-27 | Outpatient (CLI) | payer BC ==
[~2020-06-27] MED LIST changes: +IBUP-2473 PO; +PANT40TA2 PO
== END ==
LOC: WOUNDCARE 12:19
PROVIDERS: ATTEND Surgery
DX: I87.331 Chronic venous hypertension (idiopathic) with ulcer and inflammation of right lower extremity (principal); L97.212 Non-pressure chronic ulcer of right calf with fat layer exposed; I89.0 Lymphedema, not elsewhere classified; N18.3 Chronic kidney disease, stage 3 (moderate)
CPT/HCPCS: 11042; G0463

== ENCOUNTER → 2020-06-27 | Outpatient (CLI) | payer BC ==
[~2020-06-27] MED LIST changes: -IBUP-2473 PO; -PANT40TA2 PO
[2020-06-27 13:55] LABS: CHLORIDE 105 MMOL/L (98-107); POTASSIUM 4.8 MMOL/L (3.6-5.0); SODIUM 138 MMOL/L (135-145)
[2020-06-27 13:56] LABS: CALCIUM 8.5 MG/DL (8.5-10.1)
[2020-06-27 13:57] LABS: GLUCOSE 97 MG/DL (70-105)
[2020-06-27 13:58] LABS: CARBON DIOXIDE 23 MMOL/L (21-32)
[2020-06-27 14:01] LABS: BUN/CREATININE RATIO 25; GFR ESTIMATED > 60
== END ==
LOC: LAB 12:56
PROVIDERS: ATTEND Internal Medicine Cardiovascular Disease
DX: I25.10 Atherosclerotic heart disease of native coronary artery without angina pectoris (principal); I50.22 Chronic systolic (congestive) heart failure; J43.8 Other emphysema; E78.5 Hyperlipidemia, unspecified; I95.9 Hypotension, unspecified; I44.7 Left bundle-branch block, unspecified; G47.33 Obstructive sleep apnea (adult) (pediatric); Z95.810 Presence of automatic (implantable) cardiac defibrillator
CPT/HCPCS: 36415; 80048; 83735

== ENCOUNTER 2020-06-29 22:51 | Inpatient (IN) | payer BC ==
[~2020-06-29] VITALS: Ht 182.8 cm; Wt 122.0 kg
[2020-06-29 23:13] LABS: BASOPHILS % (AUTO) 0 % (0-10); EOSINOPHILS # (AUTO) 0.1 10^3/uL (0.0-0.3); EOSINOPHILS % (AUTO) 1 % (0-10); HEMATOCRIT 34 % (40-54); HEMOGLOBIN 11.1 G/DL (13.3-17.7); LYMPHOCYTES # (AUTO) 1.4 X 10^3 (1.0-4.0); LYMPHOCYTES % (AUTO) 10 % (12-44); MEAN CORPUSCULAR HEMOGLOBIN 34 PG (25-34); MEAN CORPUSCULAR HGB CONC 32 G/DL (32-36); MEAN CORPUSCULAR VOLUME 104 FL (80-99); MONOCYTES % (AUTO) 8 % (0-12); NEUTROPHILS # (AUTO) 10.9 X 10^3 (1.8-7.8); NEUTROPHILS % (AUTO) 81 % (42-75); PLATELET COUNT 205 10^3/uL (130-400); RED CELL DISTRIBUTION WIDTH 13.8 % (10.0-14.5); WHITE BLOOD COUNT 13.5 10^3/uL (4.3-11.0)
[2020-06-29 23:23] LABS: INR 1.1 (0.8-1.4); PROTHROMBIN TIME PATIENT 15.1 SEC (12.2-14.7)
[2020-06-29 23:24] LABS: BILIRUBIN,TOTAL 0.5 MG/DL (0.1-1.0)
[2020-06-29 23:39] LABS: BILIRUBIN,URINE NEGATIVE (NEGATIVE); CLARITY,URINE CLEAR; COLOR,URINE YELLOW; GLUCOSE, URINE (UA) NEGATIVE (NEGATIVE); KETONES,URINE NEGATIVE (NEGATIVE); LEUKOCYTE ESTERASE ,URINE NEGATIVE (NEGATIVE); NITRITE,URINE NEGATIVE (NEGATIVE); PROTEIN,URINE NEGATIVE (NEGATIVE)
[2020-06-29 23:52] LABS: BACTERIA,URINE TRACE /HPF; SQUAMOUS EPITHELIAL CELL,UR 0-2 /HPF; WBC,URINE 0-2 /HPF
[2020-06-30] VITALS (23 sets, daily range): BP systolic 76–193; BP diastolic 46–118
[2020-06-30 00:15] LABS: CALCIUM 7.7 MG/DL (8.5-10.1); CREATININE SERUM 1.47 MG/DL (0.60-1.30)
[2020-06-30 00:16] LABS: ALBUMIN 3.1 GM/DL (3.2-4.5); TOTAL PROTEIN 5.8 GM/DL (6.4-8.2)
[2020-06-30 00:17] LABS: POTASSIUM 7.2 MMOL/L (3.6-5.0)
[2020-06-30] MEDS ORDERED: NS IV 1000 ML 1,000 ML IV SCH ×3 (00:24)
[2020-06-30] MEDS ORDERED: RX-ALBUTEROL INHALER 8 GM HFA (VENTOLIN) IH STA (00:27)
[2020-06-30] MEDS ORDERED: inSUlin (REGULAR) HUMAN 1 UNIT/0.01 ML (CHARGE PER UNIT) IV ONE (00:30)
[2020-06-30] MEDS ORDERED: DEXTROSE 50% 50 ML (IMS) SYR IV ONE (00:30)
[2020-06-30] MEDS ORDERED: CALCIUM GLUC. 10% 4.65 MEQ/10 ML VIAL IV ONE (00:30)
[2020-06-30] MEDS ORDERED: RT-ALBUTEROL SULF 2.5 MG/3 ML PRE-MIX VIAL INH STA (00:40)
[2020-06-30] MEDS ORDERED: NS (IVPB) 50 ML ONE (00:52)
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
[2020-06-30] MEDS ORDERED: PANTOPRAZOLE 40 MG (PROTONIX) VIAL IV ONE (01:15)
[2020-06-30 05:56] LABS: ALBUMIN 2.9 GM/DL (3.2-4.5); CHLORIDE 112 MMOL/L (98-107); POTASSIUM 5.8 MMOL/L (3.6-5.0); SODIUM 138 MMOL/L (135-145)
[2020-06-30 05:57] LABS: CALCIUM 7.5 MG/DL (8.5-10.1); HEMATOCRIT 27 % (40-54); HEMOGLOBIN 8.7 G/DL (13.3-17.7); MEAN CORPUSCULAR HEMOGLOBIN 34 PG (25-34); MEAN CORPUSCULAR VOLUME 105 FL (80-99); WHITE BLOOD COUNT 9.4 10^3/uL (4.3-11.0)
[2020-06-30 05:58] LABS: BASOPHILS % (AUTO) 0 % (0-10); EOSINOPHILS # (AUTO) 0.1 10^3/uL (0.0-0.3); EOSINOPHILS % (AUTO) 1 % (0-10); GLUCOSE 91 MG/DL (70-105); LYMPHOCYTES # (AUTO) 1.4 X 10^3 (1.0-4.0); LYMPHOCYTES % (AUTO) 15 % (12-44); MEAN CORPUSCULAR HGB CONC 32 G/DL (32-36); MEAN PLATELET VOLUME 10.5 FL (7.4-10.4); MONOCYTES % (AUTO) 10 % (0-12); NEUTROPHILS # (AUTO) 6.9 X 10^3 (1.8-7.8); NEUTROPHILS % (AUTO) 74 % (42-75); PLATELET COUNT 140 10^3/uL (130-400); RED CELL DISTRIBUTION WIDTH 13.7 % (10.0-14.5); TOTAL PROTEIN 5.1 GM/DL (6.4-8.2)
[2020-06-30 05:59] LABS: CARBON DIOXIDE 20 MMOL/L (21-32)
[2020-06-30 06:00] LABS: BILIRUBIN,TOTAL 0.4 MG/DL (0.1-1.0)
[2020-06-30 06:02] LABS: ALKALINE PHOSPHATASE 76 U/L (40-136); CREATININE SERUM 1.12 MG/DL (0.60-1.30); PHOSPHORUS 2.9 MG/DL (2.3-4.7)
[2020-06-30 06:03] LABS: BUN/CREATININE RATIO 88
[2020-06-30 06:05] LABS: ALANINE AMINOTRANSFERASE 25 U/L (0-55); MAGNESIUM 2.4 MG/DL (1.6-2.4)
[2020-06-30 06:25] LABS: GFR ESTIMATED > 60
[2020-06-30] MEDS ORDERED: ONDANSETRON 4 MG/2 ML (SDV) Z0FRAN IV PRN ×2 (06:45→07:00)
[2020-06-30] MEDS: PANTOPRAZOLE 40 MG (PROTONIX) VIAL IV SCH (07:40)
--- NOTE | 2020-06-30 08:18 | Diagnostic Imaging Report ---
INDICATION: Shortness of breath, cough and congestion. Comparison made with prior examination from 06/12/2019 FINDINGS: There is cardiomegaly. There is some bibasilar subsegmental atelectasis and/or pneumonitis. There is no pleural effusion or pneumothorax. The mediastinum is unremarkable. Pacemaker overlies right hemithorax. IMPRESSION: Bibasilar subsegmental atelectasis and/or pneumonitis. Cardiomegaly. Dictated by: Dictated on workstation # [id number]
--- NOTE | 2020-06-30 10:03 | History & Physical-Hospitalist ---
History of Present Illness HPI/Chief Complaint Pt is a 63yoCM who a PMH of HTN, CAD, HLD, COPD on oxygen at 3lpm NC as baseline who presented to the ER due to dark stools and weakness. He was sleepy during our conversation as he states he was up all night. He requested to take a nap and didn't answer many questions otherwise. All other information is obtained from review of his chart. Per ER he has had weakness and frequent dark stools. He did tell me this has happened before and he has never had a colonoscopy or EGD to evaluate it because it gets better on it's own. In the ER he was quite hypotensive and was fluid resuscitated. Source: patient Date Seen 06/30/20 Time Seen by a Provider: 09:50 Attending Physician Ruiz Carlos MD PCP Jean-Claude Lopez MD Referring Physician Date of Admission Jun 30, 2020 at 01:08 Home Medications & Allergies Home Medications Reviewed patient Home Medication Reconciliation performed by pharmacy medication reconciliations magnetic testing technician and/or nursing. Patients Allergies have been reviewed. Allergies Allergies Coded Allergies quinine (Verified Allergy, Unknown, 06/06/19) Past Nouatsa-Dfuwmp-Ufzqqi Hx Past Med/Social Hx: Reviewed Nursing Past Med/Soc Hx Patient Social History Alcohol Use: Denies Use Recreational Drug Use: No Smoking Status: Former Smoker Former Smoker, Quit: Sep 02, 2018 Type Used: Cigarettes Recent Foreign Travel: No Contact w/other who traveled: No Recent Hopitalizations: No Recent Infectious Disease Expo: No Immunizations Up To Date Tetanus Booster (TDap): Unknown Pediatric: No Seasonal Allergies Seasonal Allergies: Yes Past Medical History Surgeries: Cardiac, Coronary Stent, Defibrillator, Orthopedic Respiratory: COPD, Sleep Apnea Currently Using CPAP: Yes Cardiac: Cardiomyopathy, Coronary Artery Disease, Heart Attack, Hypertension Neurological: Neuropathy Reproductive: No Genitourinary: Benign Prostatic Hyperpl Musculoskeletal: Arthritis Did You Recieve Any Treatments: No History of Blood Disorders: No Family History No Pertinent Family Hx Review of Systems ROS-Unable to Obtain: limited as patient wanted to sleep Constitutional: malaise, weakness Respiratory: short of breath, other (increased oxygen requirement) Cardiovascular: No chest pain Gastrointestinal: see HPI, melena Physical Exam Physical Exam Vital Signs Vital Signs - First Documented 06/29/20 06/29/20 22:51 23:20 Temp 37.4 Pulse 98 Resp 22 B/P (MAP) 58/33 (41) Pulse Ox 98 O2 Delivery Non Rebreather O2 Flow Rate 6.00 Capillary Refill : Less Than 3 Seconds Height, Weight, BMI Height: 6'0.00" Weight: 295lbs. 14.4oz. [id number]; 38.00 BMI Method:Stated General Appearance: Chronically ill, Obese Neck: Full Range of Motion, Supple Respiratory: Lungs Clear, No Respiratory Distress Cardiovascular: Regular Rate, Rhythm, No Murmur Gastrointestinal: Normal Bowel Sounds, Non Tender, Soft; No Guarding Extremity: Other (right lower extremity edema) Neurologic/Psychiatric: Alert, Other (drowsy, requesting to sleep) Results Results/Procedures Labs Laboratory Tests 06/29/20 23:08 06/30/20 05:35 Patient resulted labs reviewed. Imaging: Reviewed Imaging Report [facility] [place] NAME: [facility] REC#: [id number] PT STATUS: ADM IN : 1955 PHYSICIAN: RAJIV WARREN MD ADMIT DATE: 06/30/20/ICU Draft Date of Exam:06/29/20 CHEST 1 VIEW, AP/PA ONLY INDICATION: Shortness of breath, cough and congestion. Comparison made with prior examination from 06/12/2019 FINDINGS: There is cardiomegaly. There is some bibasilar subsegmental atelectasis and/or pneumonitis. There is no pleural effusion or pneumothorax. The mediastinum is unremarkable. Pacemaker overlies right hemithorax. IMPRESSION: Bibasilar subsegmental atelectasis and/or pneumonitis. Cardiomegaly. Dictated on workstation # [id number] Dict: 06/30/2015 Trans: 06/30/20 0818 [facility] [id number] Interpreted by: STEFANIE MARCIAL MD Electronically signed by: Assessment/Plan Admission Diagnosis GI Hemorrhage Admission Status: Inpatient Order (span 2 midnights) Reason for Inpatient Admission: see below Assessment and Plan GI Hemorrhage Hypotension BP responded to fluids Continue to monitor closely Will need FOBT on next stool Repeat H&H at noon, keep Hgb >8 due to cardiac disease Surgery consulted, appreciate recs Acute Renal Failure Improving Appears to have had significant uremia since May Trend Continue IVF CAD HTN HLD CHF Monitor respiratory status closely give high volume resuscitation Hold home antihypertensives due to hypotension Hold plavix due to GI Bleed Right leg swelling Doppler ordered Would be difficult to treat given GI bleed Chronic right calf ulcer Follows with Wound care Consult Dr Sabillon Clinical Quality Measures DVT/VTE Risk/Contraindication: Risk Factor Score Per Nursin RFS Level Per Nursing on Admit: 4+=Very High RUIZ CARLOS MD Jun 30, 2020 10:03
--- NOTE | 2020-06-30 10:31 | NUR ---
WHILE THIS RN ET SECOND RN WERE IN ROOM TO TRANSFER PATIENT TO BED PER PATIENT REQUEST. DURING TRANSFER, PATIENT HAD BOWEL MOVEMENT. BOWEL HAD CLOTS PRESENTS, STOOL WAS LIQUID, ET VERY DARK IN COLOR. ROSE MARIE CROSS APRN; NOTIFIED ET EXAMININED PATIENT STOOL. LABS ORDERED. CONSENT FOR PATIENT TO RECEIVE CENTRAL LINE OBTAINED, PER DR. APODACA.
[2020-06-30 10:38] LABS: HEMOGLOBIN 8.9 G/DL (13.3-17.7)
[2020-06-30 10:39] LABS: ABG BASE EXCESS -5.1 MMOL/L (-2.5-2.5); ABG OXYGEN SATURATION 97 % (94-100); ABG PCO2 36 MMHG (35-45); ABG PH 7.35 (7.37-7.43); ABG PO2 92 MMHG (79-93); ABG TCO2 20.7 MMOL/L (21.0-31.0); ALLENS TEST YES-POS; INSPIRED O2 RA; PATIENT TEMP 36.4; VENTILATOR NO
[2020-06-30] MEDS: NS IV 1000 ML 1,000 ML IV SCH ×3 (10:42→22:12)
[2020-06-30] MEDS ORDERED: LORazepam INJ 2 MG/ML (ATIVAN) VIAL ONE (10:53)
[2020-06-30] MEDS ORDERED: LORazepam INJ 2 MG/ML (ATIVAN) VIAL IVP ONE (11:15)
--- NOTE | 2020-06-30 11:37 | Diagnostic Imaging Report ---
INDICATION: Evaluate line placement. Comparison made with prior examination from 06/29/2020 FINDINGS: There has been interval placement of a left subclavian central venous catheter which has its tip in superior vena cava. There is cardiomegaly. Some scarring or atelectasis in left lung base. There is no pleural effusion or pneumothorax. Pacemaker overlies right hemithorax. IMPRESSION: Interval placement of a left subclavian central venous catheter which is in satisfactory position. Linear scarring or atelectasis in left lung base. Cardiomegaly. Dictated by: Dictated on workstation # [id number]
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
--- NOTE | 2020-06-30 12:34 | NUR ---
CALLED DR. APODACA AT THIS TIME R/T PATIENT EXPERIENCING TREMOR LIKE ACTIVITIES, PATIENT ALERT ET ORIENTED X4, PUPILS EQUAL ET REACTIVE. DR. APODACA CAME TO PT ROOM ET EXAMINIED PATIENT ET WAS ABLE TO WITNESS EVENTS. PATIENT WAS ASKED IF HE HAS A HX OF DRINKING, PATIENT STATED NO. N/O RECEIVED FOR LABS BMP MAG PHOS AT THIS TIME, ET TO COMMUNICATE WITH EICU TO SEE IF THEY HAVE ANY SUGGESTIONS.
--- NOTE | 2020-06-30 12:40 | NUR ---
SPOKE WITH EICU DOC, CAMERA INTO PATIENT ROOM TO SEE IF SHE WAS ABLE TO WITNESS PATIENT SHAKING EVENT. STATED SHE WILL STAY ON CAMERA FOR APPROX 5 MIN ET WATCH TO SEE IF SHE HAD ANY SUGGESTIONS, THIS RN LEFT ROOM WHILE EICU WATCHED PATIENT.
[2020-06-30 12:52] LABS: HEMOGLOBIN 8.7 G/DL (13.3-17.7)
[2020-06-30 12:54] LABS: CHLORIDE 114 MMOL/L (98-107); POTASSIUM 4.7 MMOL/L (3.6-5.0); SODIUM 141 MMOL/L (135-145)
[2020-06-30 12:55] LABS: CALCIUM 7.8 MG/DL (8.5-10.1)
[2020-06-30 12:56] LABS: GLUCOSE 100 MG/DL (70-105)
[2020-06-30 12:57] LABS: CARBON DIOXIDE 18 MMOL/L (21-32)
[2020-06-30 13:00] LABS: CREATININE SERUM 1.07 MG/DL (0.60-1.30); GFR ESTIMATED > 60
--- NOTE | 2020-06-30 13:00 | NUR ---
PATIENT VERY ANXIOUS, PULLING ON OXY MASK, STATING CANT BREATHE (O2 SAT 95%) PATIENT IS MOVING ALL OVER BED ET CONTINUES WITH SHAKES/TREMORS. THIS RN CONTACTED PHYSICIAN, NEW ORDERS RECEIVED FOR ONE TIME DOSE MEDICATION, SEE EMAR.
[2020-06-30 13:01] LABS: BUN/CREATININE RATIO 76
[2020-06-30 13:02] LABS: MAGNESIUM 2.5 MG/DL (1.6-2.4)
[2020-06-30] MEDS ORDERED: hydrOXYzine (VISTARIL/ATARAX) 25 MG capsule/tablet ONE (13:26)
[2020-06-30] MEDS ORDERED: hydrOXYzine (VISTARIL/ATARAX) 25 MG capsule/tablet PO NR (13:30)
--- NOTE | 2020-06-30 14:00 | NUR ---
THIS RN RECEIVED CALL FROM PT MOTHER, SHE GAVE APPROPRIATE PASSWORD, ET BEGAN ASKING ABOUT PT STATUS. THIS RN EXPLAINED PATIENTS TREMORS/SHAKING TO MOTHER. THIS RN QUESTIONED MOTHER IF SHE KNEW IF PATIENT DRANK REGULARLY, MOTHER STATED NO, BUT DID STATE PATIENT TAKES PAIN MEDICATION REGULARLY, AROUND THE CLOCK. THIS RN QUESTIONED PATIENT ABOUT THIS, PATIENT TAKES OXYCODONE ET TRAMADOL AROUND CLOCK, LAST DOSE RECEIVED WAS 06/29/20 AT 1300 AT HOME. PATIENT HAS HAD NO C/O PAIN DURING THIS RN SHIFT UNTIL THIS CONVERSATION. PATIENT UNAWARE THAT HE HAD PAIN MEDICATIONS HE COULD HAVE, ET PREVIOUSLY WHEN ASKED ABOUT PAIN STATED NO. PATIENT AT THIS POINT STATED HE WAS HURTING, ADMINISTERED PRN MEDICATION. NOTIFIED DR. APODACA OF CONVERSATION WITH MOTHER ET PATIENT.
[2020-06-30] MEDS: HYDROcodone/APAP 5 MG/325 MG (LORTAB) TAB PO PRN ×3 (14:12→23:48)
--- NOTE | 2020-06-30 16:20 | NUR ---
PATIENT CONTINUES WITH ANXIETY ET TREMORS/SHAKING ALL OVER BED. PATIENT ALERT ET ORIENTED X4, EQUAL HAND GATE MANAGER, AFEBRILE, PERRLA, NOTIFIED DR. APODACA. RECEIVED NEW ORDER FOR ANXIETY MEDICATION ONE TIME DOSE ET PRN. SEE EMAR.
[2020-06-30] MEDS ORDERED: LORazepam 0.5 MG (ATIVAN) TABLET PO NR (16:30)
--- NOTE | 2020-06-30 18:15 | NUR ---
THIS RN SPOKE WITH DR. APODACA AGAIN, PATIENT STILL HAVING TREMORS/SHAKES, THIS RN ASKED IF DR. APODACA WOULD LIKE TO CHECK LACTIC AT THIS POINT, DECLINED AT THIS TIME.
[2020-06-30] MEDS ORDERED: MAGNESIUM CITRATE 300 ML BTL PO NR (19:30)
--- NOTE | 2020-06-30 20:43 | OPERATIVE REPORT ---
DATE OF SERVICE: 06/30/2020 ATTENDING PRIMARY CARE PHYSICIAN: Jean-Claude Lopez MD ADMITTING PHYSICIAN: Dr. Mely Carlos PREOPERATIVE DIAGNOSIS: Gastrointestinal bleed with hypotension. POSTOPERATIVE DIAGNOSIS: Gastrointestinal bleed with hypotension. PROCEDURE: Placement of left subclavian central venous catheter. SURGEON: Breonna Blackwell MD DEAN OF MEN: Yusef Albarran APRN ANESTHESIA: Local. ESTIMATED BLOOD LOSS: Minimal. FINDINGS: Catheter tip at superior vena caval - right atrial junction. DISPOSITION: The patient tolerated the procedure well. INDICATIONS: The patient is a 64-year-old male, who presented to the Emergency Department with weakness as well as sustaining dark tarry stools for the previous 2 days. He also does have a significant history of COPD as well as CHF. Since being admitted, he was found to be anemic and also did have bowel movement, which was mostly clotted maroon colored blood. He has not had any previous endoscopy done in the past. DESCRIPTION OF PROCEDURE: The neck and chest were prepped and draped in standard surgical fashion. 1% lidocaine was used to anesthetize the left subclavian region. The left subclavian vein was then cannulated withdrawing the venous blood. The guidewire was then inserted without any resistance. Cannulating needle removed and a skin incision made using 11 blade. A tract was then created using a venous dilator and a triple lumen central venous catheter was placed over the guidewire using the Seldinger technique and the guidewire removed. All three ports anne venous blood and saline pushed in without any resistance. The catheter was sutured to the skin using interrupted 3-0 silk sutures. Catheter was then cleaned and covered with Op-Site. The patient tolerated the procedure well. We will get a post-procedure chest x-ray. Job ID: [id number] DocumentID: [id number] Dictated Date: 06/30/2020 12:09:20 Lumber Handler Date: 06/30/2020 20:42:55 Dictated By: BREONNA BLACKWELL MD
[2020-07-01] VITALS (28 sets, daily range): BP systolic 90–177; BP diastolic 40–101
[2020-07-01 00:49] LABS: HEMOGLOBIN 7.6 G/DL (13.3-17.7)
--- NOTE | 2020-07-01 01:21 | NUR ---
Informed teleICU of 7.6 hemoglobin. No blood stools have been noted this shift, patient's blood pressure remains stable. Will recheck at 0500. Continue to monitor patient.
[2020-07-01] MEDS: HYDROcodone/APAP 5 MG/325 MG (LORTAB) TAB PO PRN ×2 (02:57→07:26)
[2020-07-01] MEDS: LORazepam 0.5 MG (ATIVAN) TABLET PO PRN (02:57)
[2020-07-01 05:35] LABS: BASOPHILS % (AUTO) 0 % (0-10); EOSINOPHILS # (AUTO) 0.2 10^3/uL (0.0-0.3); EOSINOPHILS % (AUTO) 2 % (0-10); HEMATOCRIT 22 % (40-54); HEMOGLOBIN 7.1 G/DL (13.3-17.7); LYMPHOCYTES # (AUTO) 0.8 X 10^3 (1.0-4.0); LYMPHOCYTES % (AUTO) 11 % (12-44); MEAN CORPUSCULAR HGB CONC 32 G/DL (32-36); MEAN CORPUSCULAR VOLUME 106 FL (80-99); MEAN PLATELET VOLUME 9.7 FL (7.4-10.4); MONOCYTES # (AUTO) 0.6 X 10^3 (0.0-1.0); MONOCYTES % (AUTO) 8 % (0-12); NEUTROPHILS # (AUTO) 5.8 X 10^3 (1.8-7.8); NEUTROPHILS % (AUTO) 78 % (42-75); PLATELET COUNT 122 10^3/uL (130-400); RED CELL DISTRIBUTION WIDTH 14.1 % (10.0-14.5); WHITE BLOOD COUNT 7.4 10^3/uL (4.3-11.0)
[2020-07-01 05:36] LABS: MEAN CORPUSCULAR HEMOGLOBIN 33 PG (25-34)
[2020-07-01 05:43] LABS: CHLORIDE 115 MMOL/L (98-107); POTASSIUM 4.7 MMOL/L (3.6-5.0); SODIUM 142 MMOL/L (135-145)
[2020-07-01 05:45] LABS: CALCIUM 7.8 MG/DL (8.5-10.1); GLUCOSE 100 MG/DL (70-105)
[2020-07-01 05:47] LABS: CARBON DIOXIDE 21 MMOL/L (21-32)
[2020-07-01 05:49] LABS: CREATININE SERUM 0.78 MG/DL (0.60-1.30); GFR ESTIMATED > 60; PHOSPHORUS 4.1 MG/DL (2.3-4.7)
[2020-07-01 05:50] LABS: BUN/CREATININE RATIO 51
[2020-07-01 05:51] LABS: MAGNESIUM 2.4 MG/DL (1.6-2.4)
[2020-07-01] MEDS ORDERED: NS IV 500 ML 500 ML IV SCH (06:30)
--- NOTE | 2020-07-01 07:31 | Diagnostic Imaging Report ---
REASON FOR EXAMINATION: Dehydration, renal failure. Comparison study dated 06/30/2020. Heart size is unchanged. No mediastinal widening. Pacemaker remains in place as well as the left subclavian central line. Minimal basilar atelectatic changes but no focal pneumonia, large pleural effusion or heart failure. No pneumothorax. IMPRESSION: 1. Minimal bibasilar atelectatic changes but no focal pneumonia, heart failure or pneumothorax. Dictated by: Dictated on workstation # [id number]
[2020-07-01] MEDS: PANTOPRAZOLE 40 MG (PROTONIX) VIAL IV SCH (08:05)
[2020-07-01] MEDS: NS IV 1000 ML 1,000 ML IV SCH ×2 (08:05→20:14)
[2020-07-01] MEDS ORDERED: MAGNESIUM CITRATE 300 ML BTL PO NR ×2 (09:00→19:30)
--- NOTE | 2020-07-01 10:04 | Diagnostic Imaging Report ---
PROCEDURE: US right lower extremity venous. TECHNIQUE: Multiple real-time grayscale images were obtained over the right lower extremity in various projections. Additional spectral analysis and color Doppler duplex images were also obtained. INDICATION: Right leg swelling. There is no evidence of right lower extremity DVT. Right lower extremity deep venous system shows normal compressibility with normal response to augmentation and Valsalva. No fluid collection or mass is detected. IMPRESSION: No evidence of right lower extremity DVT. Dictated by: Dictated on workstation # [id number]
[2020-07-01] MEDS ORDERED: CRV25T PO ×2 (10:10)
[2020-07-01] MEDS ORDERED: LISI40TA PO ×2 (10:10)
[2020-07-01] MEDS ORDERED: CLOP75TA69 PO ×2 (10:10)
[2020-07-01] MEDS ORDERED: IBUP-2473 PO ×2 (10:10)
--- NOTE | 2020-07-01 10:17 | NUR ---
SPOKE WITH THE PT, WENT THRU THE EXT MED HISTORY AND CALLED DR. JESUS OFFICE TO COMPLETE THE MED REC METOLAZONE 5MG IS LISTED ON THE EXT MED HISTORY (LAST FILLED 06-18-2020 #30) BUT THE PT SAYS HE IS NO LONGER TAKING AND DR. ALCARAZ STOPPED THIS MEDICATION. I FOLLOWED UP WITH DR. JESUS OFFICE TO SEE WHEN THIS MED WAS DC'D- THE OFFICE LOOKED THRU HIS CHART AND IT WAS STILL LISTED ON THE ACTIVE MED LIST AND THERE WERE NO NOTES AT HIS RECENT APPTS ABOUT STOPPING THIS MED. I WILL NOT INCLUDE THIS ON THE MED REC AT THIS TIME DUE TO PT BEING ADAMANT HE IS NOT TAKING COREG 25MG SHOW ON THE EXT MED HISTORY WITH DIRECTIONS OF 1 TAB BID- HOWEVER PT SAYS HE TAKES TAB BID- WHEN I CALLED DR. JESUS OFFICE THIS CHANGE DID NOT SHOW IN HIS CHART. OTC MEDS: IBUPROFEN
--- NOTE | 2020-07-01 13:21 | Progress Note - Hospitalist ---
Subjective HPI/CC On Admission Date Seen by Provider: Jul 01, 2020 Time Seen by Provider: 09:50 Pt is a 63yoCM who a PMH of HTN, CAD, HLD, COPD on oxygen at 3lpm NC as baseline who presented to the ER due to dark stools and weakness. He was sleepy during our conversation as he states he was up all night. He requested to take a nap a nd didn't answer many questions otherwise. All other information is obtained from review of his chart. Per ER he has had weakness and frequent dark stools. He did tell me this has happened before and he has never had a colonoscopy or EGD to evaluate it because it gets better on it's own. In the ER he was quite hypotensive and was fluid resuscitated. Subjective/Events-last exam he reports continuing to have a rectal bleeding. He denies any fevers or chills. He denies any shortness of breath or cough. He denies any chest pain. He denies any nausea or vomiting. He has no other complaints or concerns. He denies any pain. Focused Exam Lactate Level 06/29/20 23:23: Lactic Acid Level 2.00 Objective Exam Vital Signs Vital Signs Date Time Temp Pulse Resp B/P (MAP) Pulse Ox O2 Delivery O2 Flow Rate FiO2 07/01/20 12:51 85 07/01/20 12:00 26 105/46 (65) 96 OxyMask 6.00 07/01/20 12:00 36.4 Capillary Refill : Less Than 3 Seconds General Appearance: No Apparent Distress, Obese Respiratory: Lungs Clear, Normal Breath Sounds, No Respiratory Distress Cardiovascular: Regular Rate, Rhythm, No Edema, No Murmur Gastrointestinal: Normal Bowel Sounds, Non Tender, Soft Extremity: Normal Inspection, Non Tender, No Pedal Edema Neurologic/Psychiatric: Alert, Oriented x3, No Motor/Sensory Deficits, Normal Mood/Affect Skin: Normal Color, Warm/Dry Results/Procedures Lab Laboratory Tests 06/30/20 18:29 07/01/20 00:39 07/01/20 05:30 Patient resulted labs reviewed. Imaging: Reviewed Imaging Report Assessment/Plan Assessment and Plan Assess & Plan/Chief Complaint GI bleeding Acute blood loss anemia hemoglobin 7.1 this morning 1 unit PRBC ordered Repeat H&H this afternoon Gen. surgery consulted, planning for EGD/colonoscopy tomorrow Acute Renal Failure creatinine 0.78 this morning Continue IV fluids CAD HTN HLD CHF antihypertensives held due to low blood pressures holding Plavix due to GI bleeding Hypotension, resolved Diagnosis/Problems Diagnosis/Problems (1) GI bleed Status: Acute (2) Acute renal failure Status: Acute Qualifiers: Acute renal failure type: unspecified Qualified Codes: N17.9 - Acute kidney failure, unspecified Clinical Quality Measures DVT/VTE Risk/Contraindication: Risk Factor Score Per Nursin RFS Level Per Nursing on Admit: 4+=Very High JUJU CURIEL MD Jul 01, 2020 13:21
--- NOTE | 2020-07-01 15:47 | Progress Note ---
Subjective Date Seen by a Provider: Jul 01, 2020 Time Seen by a Provider: 15:00 Subjective/Events-last exam doing better today. had another BM last night however more dark tarry. hb stable at 7.1. Focused Exam Lactate Level 06/29/20 23:23: Lactic Acid Level 2.00 Objective Exam Vital Signs Date Time Temp Pulse Resp B/P (MAP) Pulse Ox O2 Delivery O2 Flow Rate FiO2 07/01/20 15:00 95 19 93 Nasal Cannula 4.00 07/01/20 14:00 90 27 134/79 (97) 92 Nasal Cannula 4.00 07/01/20 13:00 87 33 109/54 (72) 93 Nasal Cannula 4.00 07/01/20 12:51 85 07/01/20 12:50 Nasal Cannula 4.00 07/01/20 12:00 89 26 105/46 (65) 96 OxyMask 6.00 07/01/20 12:00 36.4 07/01/20 12:00 94 OxyMask 6.00 07/01/20 11:00 81 20 114/51 (72) 98 OxyMask 6.00 07/01/20 10:47 OxyMask 6.00 07/01/20 10:33 07/01/20 10:29 36.9 81 18 105/48 94 OxyMask 6.00 07/01/20 10:00 84 21 95/51 (66) 94 OxyMask 6.00 07/01/20 09:00 89 16 107/47 (67) 91 OxyMask 6.00 07/01/20 08:15 36.8 78 18 110/48 95 OxyMask 6.00 07/01/20 08:15 36.8 76 18 110/48 95 OxyMask 6.00 07/01/20 08:00 85 19 100/66 (77) 99 OxyMask 6.00 07/01/20 08:00 94 OxyMask 6.00 07/01/20 07:59 36.9 81 20 91/40 98 Nasal Cannula 07/01/20 07:00 79 07/01/20 07:00 91 25 103/53 (70) 95 OxyMask 6.00 07/01/20 06:00 80 20 115/64 (81) OxyMask 6.00 07/01/20 05:00 74 21 96/51 (66) 98 OxyMask 6.00 07/01/20 04:00 80 29 91/52 (65) 97 OxyMask 6.00 07/01/20 04:00 36.8 07/01/20 04:00 92 OxyMask 6.00 07/01/20 03:00 86 22 102/50 (67) 97 OxyMask 6.00 07/01/20 02:00 85 23 124/64 (84) 95 OxyMask 6.00 07/01/20 01:15 86 23 111/60 (77) 92 OxyMask 6.00 07/01/20 01:00 83 07/01/20 01:00 83 23 90/46 (61) 91 OxyMask 6.00 07/01/20 00:00 92 OxyMask 6.00 07/01/20 00:00 88 25 114/61 (78) 93 OxyMask 6.00 06/30/20 23:49 35.9 06/30/20 23:00 91 19 193/60 (104) 95 OxyMask 6.00 06/30/20 22:00 89 25 150/65 (93) 95 OxyMask 6.00 06/30/20 21:00 94 18 143/93 (110) OxyMask 6.00 06/30/20 20:00 91 OxyMask 6.00 06/30/20 20:00 36.2 06/30/20 20:00 81 22 102/59 (73) 94 OxyMask 6.00 06/30/20 19:07 99 18 105/60 (75) OxyMask 6.00 06/30/20 19:00 90 27 96 OxyMask 6.00 06/30/20 19:00 90 06/30/20 18:10 110 21 100/51 (67) 92 OxyMask 6.00 06/30/20 17:00 113 28 114/96 (102) 93 OxyMask 6.00 06/30/20 16:00 92 OxyMask 6.00 06/30/20 16:00 143/74 (97) 96 OxyMask 6.00 06/30/20 16:00 36.6 I & O 07/01/20 07:00 Intake Total 2875 ml Output Total 5475 ml Balance -2600 ml Capillary Refill : Less Than 3 Seconds General Appearance: No Apparent Distress HEENT: PERRL/EOMI Neck: Full Range of Motion Respiratory: Decreased Breath Sounds, Rhonci, Wheezing Cardiovascular: Regular Rate, Rhythm Gastrointestinal: normal bowel sounds, non tender, soft Extremity: Normal Capillary Refill Neurologic/Psychiatric: Alert, Oriented x3 Skin: Normal Color Lymphatic: No Adenopathy Results Lab Laboratory Tests 06/30/20 18:29: Hemoglobin 8.0L, Hematocrit 25L 07/01/20 00:39: Hemoglobin 7.6L, Hematocrit 24L 07/01/20 05:30: Hemoglobin 7.1L, Hematocrit 22L, White Blood Count 7.4, Red Blood Count 2.12L, Mean Corpuscular Volume 106H, Mean Corpuscular Hemoglobin 33, Mean Corpuscular Hemoglobin Concent 32, Red Cell Distribution Width 14.1, Platelet Count 122L, Mean Platelet Volume 9.7, Neutrophils (%) (Auto) 78H, Lymphocytes (%) (Auto) 11L , Monocytes (%) (Auto) 8, Eosinophils (%) (Auto) 2, Basophils (%) (Auto) 0, Neutrophils # (Auto) 5.8, Lymphocytes # (Auto) 0.8L, Monocytes # (Auto) 0.6, Eosinophils # (Auto) 0.2, Basophils # (Auto) 0.0, Sodium Level 142, Potassium Level 4.7, Chloride Level 115H, Carbon Dioxide Level 21, Anion Gap 6, Blood Urea Nitrogen 40H, Creatinine 0.78, Estimat Glomerular Filtration Rate > 60, BUN/Creatinine Ratio 51, Glucose Level 100, Calcium Level 7.8L, Phosphorus Level 4.1, Magnesium Level 2.4 07/01/20 12:45: Lab Scanned Report Transfusion Reaction Form Microbiology 06/30/20 MRSA Screen - Final, Complete MRSA not isolated 06/29/20 Urine Culture - Final, Complete 3 or more isolates 06/29/20 Blood Culture - Preliminary, Resulted No growth Assessment/Plan Assessment/Plan Assess & Plan/Chief Complaint GI bleed. continue H/H monitor and resuscitation as necessary. EGD and colonoscopy tomorrow. Clinical Quality Measures DVT/VTE Risk/Contraindication: Risk Factor Score Per Nursin RFS Level Per Nursing on Admit: 4+=Very High BREONNA GALVAN MD Jul 01, 2020 15:47
[2020-07-01] MEDS: oxyCODONE/APAP 10/325MG (PERCOCET 10) TABLET PO PRN ×2 (16:17→22:13)
[2020-07-01 16:59] LABS: HEMOGLOBIN 8.1 G/DL (13.3-17.7)
[2020-07-02] VITALS (17 sets, daily range): BP systolic 104–147; BP diastolic 60–93
[2020-07-02] MEDS: LORazepam 0.5 MG (ATIVAN) TABLET PO PRN (03:22)
[2020-07-02 03:47] LABS: BASOPHILS % (AUTO) 0 % (0-10); EOSINOPHILS # (AUTO) 0.3 10^3/uL (0.0-0.3); EOSINOPHILS % (AUTO) 4 % (0-10); HEMATOCRIT 26 % (40-54); HEMOGLOBIN 8.5 G/DL (13.3-17.7); LYMPHOCYTES # (AUTO) 0.9 X 10^3 (1.0-4.0); LYMPHOCYTES % (AUTO) 11 % (12-44); MEAN CORPUSCULAR HEMOGLOBIN 34 PG (25-34); MEAN CORPUSCULAR HGB CONC 33 G/DL (32-36); MEAN CORPUSCULAR VOLUME 103 FL (80-99); MEAN PLATELET VOLUME 10.2 FL (7.4-10.4); MONOCYTES # (AUTO) 0.7 X 10^3 (0.0-1.0); MONOCYTES % (AUTO) 8 % (0-12); NEUTROPHILS # (AUTO) 6.1 X 10^3 (1.8-7.8); NEUTROPHILS % (AUTO) 77 % (42-75); PLATELET COUNT 125 10^3/uL (130-400); RED CELL DISTRIBUTION WIDTH 15.9 % (10.0-14.5)
[2020-07-02 04:06] LABS: BUN/CREATININE RATIO 18; CALCIUM 8.1 MG/DL (8.5-10.1); CARBON DIOXIDE 22 MMOL/L (21-32); CHLORIDE 108 MMOL/L (98-107); CREATININE SERUM 0.71 MG/DL (0.60-1.30); GFR ESTIMATED > 60; GLUCOSE 115 MG/DL (70-105); MAGNESIUM 2.2 MG/DL (1.6-2.4); PHOSPHORUS 2.8 MG/DL (2.3-4.7); POTASSIUM 4.4 MMOL/L (3.6-5.0); SODIUM 138 MMOL/L (135-145)
[2020-07-02 04:24] LABS: ANISOCYTOSIS SLIGHT; EOSINOPHILS % (MANUAL) 5 %; HYPOCHROMASIA SLIGHT; LYMPHOCYTES % (MANUAL) 10 %; MICROCYTOSIS SLIGHT; MONOCYTES % (MANUAL) 8 %; NEUTROPHILS % (MANUAL) 76 %; REACTIVE LYMPHOCYTES 1 %; ROULEAUX SLIGHT
[2020-07-02] MEDS: oxyCODONE/APAP 10/325MG (PERCOCET 10) TABLET PO PRN ×2 (04:46→18:15)
[2020-07-02] MEDS: NS IV 1000 ML 1,000 ML IV SCH ×2 (06:58→18:16)
--- NOTE | 2020-07-02 08:11 | Diagnostic Imaging Report ---
INDICATION: Dehydration, melena, hyperkalemia. TECHNIQUE: Single view chest 3:24 AM. CORRELATION STUDY: 07/01/2020 FINDINGS: Right-sided unipolar pacemaker stable. Unchanged cardiac enlargement. Vasculature has increased slightly since prior study. Atelectasis, infiltrate and/or edema at both lung bases are present. IMPRESSION: 1. Vasculature appears adversely changed from prior study. Superimposed infiltrate, edema and/or atelectasis at lung bases, left greater than right. Dictated by: Dictated on workstation # [id number]
[2020-07-02] MEDS: PANTOPRAZOLE 40 MG (PROTONIX) VIAL IV SCH (08:15)
--- NOTE | 2020-07-02 09:55 | NUR ---
REPORT TAKEN AT THIS TIME FROM FADI MELENDREZ FROM ICU.
--- NOTE | 2020-07-02 10:22 | NUR ---
PATIENT TO FLOOR VIA CART AT THIS TIME. THIS RN WILL ASSUME CARE OF THIS PATIENT AT THIS TIME.
--- NOTE | 2020-07-02 10:50 | NUR ---
NEW ( ACCURATE) CONSENT FILLED OUT AND PATIENT SIGNED CONSENT WITH IN THE ROOM AT THIS TIME.
--- NOTE | 2020-07-02 11:43 | Progress Note - Hospitalist ---
Subjective HPI/CC On Admission Date Seen by Provider: Jul 02, 2020 Time Seen by Provider: 09:30 Pt is a 63yoCM who a PMH of HTN, CAD, HLD, COPD on oxygen at 3lpm NC as baseline who presented to the ER due to dark stools and weakness. He was sleepy during our conversation as he states he was up all night. He requested to take a nap a nd didn't answer many questions otherwise. All other information is obtained from review of his chart. Per ER he has had weakness and frequent dark stools. He did tell me this has happened before and he has never had a colonoscopy or EGD to evaluate it because it gets better on it's own. In the ER he was quite hypotensive and was fluid resuscitated. Subjective/Events-last exam He reports having a headache from the oxygen drying out his nose. He continues to have a dark red stools. He completed his bowel prep. He denies any fevers or chills. He denies any shortness of breath or cough. He denies any chest pain. He denies any abdominal pain, nausea, or vomiting. Focused Exam Lactate Level 06/29/20 23:23: Lactic Acid Level 2.00 Objective Exam Vital Signs Vital Signs Date Time Temp Pulse Resp B/P (MAP) Pulse Ox O2 Delivery O2 Flow Rate FiO2 07/02/20 09:55 Nasal Cannula 4.00 07/02/20 09:00 79 10 131/61 (84) 91 07/02/20 07:58 36.9 Capillary Refill : Less Than 3 Seconds General Appearance: No Apparent Distress, Obese Respiratory: Lungs Clear, Normal Breath Sounds, No Respiratory Distress Cardiovascular: Regular Rate, Rhythm, No Edema, No Murmur Gastrointestinal: Normal Bowel Sounds, Non Tender, Soft Extremity: Normal Inspection, Non Tender, No Pedal Edema Neurologic/Psychiatric: Alert, Oriented x3, No Motor/Sensory Deficits, Normal Mood/Affect Skin: Normal Color, Warm/Dry Results/Procedures Lab Laboratory Tests 07/01/20 16:53 07/02/20 03:35 Patient resulted labs reviewed. Imaging: Reviewed Imaging Report Assessment/Plan Assessment and Plan Assess & Plan/Chief Complaint GI bleeding Acute blood loss anemia hemoglobin 8.5, improved and stable since transfusion Gen. surgery consulted, planning for EGD/colonoscopy today Continue PPI Acute Renal Failure creatinine 0.71 this morning Continue IV fluids CAD HTN HLD CHF antihypertensives held due to low blood pressures holding Plavix due to GI bleeding Hypotension, resolved Diagnosis/Problems Diagnosis/Problems (1) GI bleed Status: Acute (2) Acute blood loss anemia Status: Acute (3) Acute renal failure Status: Acute Qualifiers: Acute renal failure type: unspecified Qualified Codes: N17.9 - Acute kidney failure, unspecified Clinical Quality Measures DVT/VTE Risk/Contraindication: Risk Factor Score Per Nursin RFS Level Per Nursing on Admit: 4+=Very High JUJU CURIEL MD Jul 02, 2020 11:42
[2020-07-02] MEDS ORDERED: LACTATED RINGERS 1,000 ML IV STA (13:21)
[2020-07-02] MEDS ORDERED: LACTATED RINGERS 1,000 ML IV ONE (13:25)
[2020-07-02] MEDS ORDERED: LIDOCAINE JELLY 2% 6 ML SYRINGE MM PRN (13:30)
[2020-07-02] MEDS ORDERED: HURRICAINE EXT TUBE (BENZOCAINE) XX PRN (13:30)
[2020-07-02] MEDS ORDERED: KETAMINE/NaCl 50 MG/5 ML SYRINGE (ED ONLY) ONE (14:05)
[2020-07-02] MEDS ORDERED: proPOfol 200 MG/20 ML (DIPRIVAN) VIAL IV ONE (14:05)
[2020-07-02] MEDS ORDERED: MIDAZOLAM 2 MG/2 ML (VERSED) VIAL ONE (14:05)
[2020-07-02] MEDS ORDERED: LIDOCAINE JELLY 2% 6 ML SYRINGE ONE (14:21)
--- NOTE | 2020-07-02 14:49 | NUR ---
CM/SS will visit with patient for discharge planning. Patient was gone for a procedure. CM/SS will attempt to visit patient again in the morning.
--- NOTE | 2020-07-02 15:08 | Anesthesia-General Post-Op ---
MAC Patient Condition Mental Status/LOC: Same as Preop Cardiovascular: Satisfactory Nausea/Vomiting: Absent Respiratory: Satisfactory Pain: Controlled Complications: Absent Post Op Complications Complications None Follow Up Care/Instructions Patient Instructions None needed. Anesthesiology Discharge Order Discharge Order Patient is doing well, no complaints, stable vital signs, no apparent adverse anesthesia problems. ELENA VAZ DO Jul 02, 2020 15:08
--- NOTE | 2020-07-02 15:33 | NUR ---
PATIENT BACK TO FLOOR AT THIS TIME. Addendum: 07/02/20 at 1550 by ROSE ALFREDO RN CURRENTLY USING 10 OXYGEN PER OXY MASK TO MAINTAIN SATS AT THIS TIME. FAMILY IS AT BEDSIDE OF THIS PATIENT
--- NOTE | 2020-07-02 22:16 | OPERATIVE REPORT ---
DATE OF SERVICE: 06/30/2020 ATTENDING PRIMARY CARE PHYSICIAN: Dr. Jean-Calude Lopez. PREOPERATIVE DIAGNOSIS: Gastrointestinal bleeding. POSTOPERATIVE DIAGNOSES: Reflux esophagitis stage II, small to moderate size hiatal hernia approximately 2 cm in size, moderate gastritis with prepyloric type 3 gastric ulcer with an overlying fibrin clot, less than 1 cm in size. No active bleeding. Chronic stage II external and internal hemorrhoids. Remainder of the rectum and colon were normal. PROCEDURE: EGD with biopsy, colonoscopy. SURGEON: Breonna Galvan MD. ANESTHESIA: Monitored anesthesia care. ESTIMATED BLOOD LOSS: Minimal. FINDINGS: Reflux esophagitis stage II, small to moderate size hiatal hernia approximately 2 cm in size, moderate gastritis with prepyloric type 3 gastric ulcer with an overlying fibrin clot, less than 1 cm in size. No active bleeding. Chronic stage II external and internal hemorrhoids. Remainder of the rectum and colon were normal. DISPOSITION: The patient tolerated the procedure well. INDICATIONS: The patient is a 64-year-old male, who presented with weakness, fatigue and dark tarry stools for 2 days prior to admission. He states a history of peptic ulcer disease as well as gastroesophageal reflux disease. He reports not having a previous colonoscopy in the past. While admitted, he did have one episode of a maroon clotted stool followed by a slightly darker colored stool. Since being transfused, his hemoglobin has been stable. DESCRIPTION OF PROCEDURE: The patient was brought to the endoscopy suite, laid in the left lateral decubitus position with head slightly elevated. After adequate IV pain and sedative medications and monitored anesthesia care, the mouthpiece was applied. Endoscope was then placed in the mouth, visualizing the pharynx and hypopharyngeal region. Vocal cords, epiglottis and vallecula identified and appeared to be normal. The endoscope was then gently intubated and esophageal opening and esophagus insufflated. The endoscope was then advanced through the first, second and third portion of the esophagus at the level of the GE junction, a reflux esophagitis stage II identified. There were no ulcers or strictures identified in this region. A biopsy was taken with forceps with visualization of good hemostasis. The endoscope was then advanced in the stomach and endoscope retroflexed, visualizing a small to moderate size hiatal hernia approximately 2 cm in size. This appeared to be a type 1 sliding hiatal hernia. There was a moderate severity gastritis in the prepyloric region was a gastric ulcer with an overlying fibrin clot, less than 1 cm in size. There was no active bleeding. Multiple biopsies were taken of the ulcers to rule out malignancy with forceps with visualization of good hemostasis. The endoscope was then advanced to the pylorus and the first and second portion of the duodenum, which appeared normal and no other ulcerations or any distal obstructions. The endoscope was then slowly withdrawn while taking a second look and suctioning of residual air with no additional findings. Under the same anesthesia, we then proceeded with colonoscopy portion of procedure. Digital rectal examination was performed, which revealed chronic stage II external and internal hemorrhoids, not actively edematous nor inflamed and no bleeding. Normal sphincter tone was felt and there were no palpable masses. Prostate gland was palpable and appeared normal. The endoscope was then intubated and anus and rectum gently insufflated. The endoscope was then advanced through the valves of Padilla of the rectum with no polyps or any neoplasms identified. Through the sigmoid colon, no diverticulosis identified. The endoscope was then advanced to the remainder of the descending, transverse and ascending colon to the cecum. These segments were normal. There were no active bleeding sources as well as no polyps or any neoplasms identified. The endoscope was then slowly withdrawn while taking a second look and suctioning of residual air with no additional findings. The patient tolerated the procedure well. Most likely etiology of his gastrointestinal bleeding was the prepyloric type 3 ulcer and we will recommend the necessary lifestyle and diet accommodation including small and more frequent meals, avoiding eating at night as well as head elevation while lying supine. He also needs to avoid caffeinated beverages, spicy, greasy and acidic foods. He also needs to take her PPI acid wire hanger on a regular basis as well as Carafate 1 g q.i.d. for the next 2 weeks, then on a p.r.n. basis. From a colonoscopy standpoint, he does have chronic stage II external and internal hemorrhoids and only recommendation for this is to proceed with a high fiber diet with at least 30 grams of fiber daily as well as significant amounts of water to promote soft stools on a daily basis. Any form of regular scheduled diet and exercise regimen for weight loss and maintenance would also be beneficial. Job ID: [id number] DocumentID: [id number] Dictated Date: 07/02/2020 15:09:13 Papeterie Table Assembler Date: 07/02/2020 22:15:33 Dictated By: BREONNA GALVAN MD
[2020-07-03 00:35] VITALS: BP 152/68
[2020-07-03] MEDS: oxyCODONE/APAP 10/325MG (PERCOCET 10) TABLET PO PRN ×2 (00:54→06:18)
[2020-07-03] MEDS: NS IV 1000 ML 1,000 ML IV SCH (03:51)
[2020-07-03 04:15] VITALS: BP 123/71
[2020-07-03 04:49] LABS: BASOPHILS % (AUTO) 0 % (0-10); EOSINOPHILS # (AUTO) 0.1 10^3/uL (0.0-0.3); EOSINOPHILS % (AUTO) 1 % (0-10); HEMATOCRIT 24 % (40-54); HEMOGLOBIN 7.9 G/DL (13.3-17.7); LYMPHOCYTES # (AUTO) 0.8 X 10^3 (1.0-4.0); LYMPHOCYTES % (AUTO) 9 % (12-44); MEAN CORPUSCULAR HEMOGLOBIN 33 PG (25-34); MEAN CORPUSCULAR HGB CONC 33 G/DL (32-36); MEAN CORPUSCULAR VOLUME 103 FL (80-99); MEAN PLATELET VOLUME 10.3 FL (7.4-10.4); MONOCYTES % (AUTO) 10 % (0-12); NEUTROPHILS # (AUTO) 7.5 X 10^3 (1.8-7.8); NEUTROPHILS % (AUTO) 80 % (42-75); PLATELET COUNT 117 10^3/uL (130-400); RED CELL DISTRIBUTION WIDTH 15.5 % (10.0-14.5); WHITE BLOOD COUNT 9.4 10^3/uL (4.3-11.0)
[2020-07-03 05:07] LABS: BUN/CREATININE RATIO 7; CALCIUM 8.1 MG/DL (8.5-10.1); CARBON DIOXIDE 22 MMOL/L (21-32); CHLORIDE 103 MMOL/L (98-107); CREATININE SERUM 0.68 MG/DL (0.60-1.30); GFR ESTIMATED > 60; GLUCOSE 107 MG/DL (70-105); POTASSIUM 4.2 MMOL/L (3.6-5.0); SODIUM 136 MMOL/L (135-145)
[2020-07-03 08:00] VITALS: BP 122/60
[2020-07-03] MEDS: PANTOPRAZOLE 40 MG (PROTONIX) VIAL IV SCH (08:27)
[2020-07-03] MEDS ORDERED: PANT40TA2 PO ×2 (11:10)
--- NOTE | 2020-07-03 11:57 | Discharge Summary ---
Discharge Summary Hospital Course Problems/Dx: (1) NSAID-induced gastric ulcer Status: Acute (2) GI bleed Status: Acute Qualifiers: Qualified Codes: K25.4 - Chronic or unspecified gastric ulcer with hemorrhage (3) Acute blood loss anemia Status: Acute (4) Acute renal failure Status: Resolved Qualifiers: Qualified Codes: N17.9 - Acute kidney failure, unspecified Hospital Course Date of Admission: Jun 30, 2020 at 01:08 Admission Diagnosis : Acute GI bleeding Family Physician/Provider: Robert Alcaraz MD Date of Discharge: 07/03/20 Discharge Diagnosis: Acute upper GI bleed due to NSAID-induced gastric ulcer Hospital Course: Osiel Hightower is a 64-year-old male who presented with GI bleeding. His hemoglobin was significantly lower than baseline and he required transfusions. He was stabilized and underwent an endoscopy. He was found to have a esophagitis, gastritis, hiatal hernia, and a gastric ulcer with evidence of recent bleeding but no active bleeding. He was instructed to discontinue use of ibuprofen and other NSAIDs. He was started on pantoprazole 40 mg twice daily which she will continue for a few weeks and then transitioned to once daily. He will have labs drawn in a couple days for repeat hemoglobin check. He should follow-up with his PCP in about a week. His hospital course was complicated by an acute kidney injury which resolved with fluid resuscitation. Labs and Pending Lab Test: Laboratory Tests 07/02/20 12:55: Coronavirus (COVID-19)(PCR) [Pending] 07/03/20 04:40: White Blood Count 9.4, Red Blood Count 2.37L, Hemoglobin 7.9L, Hematocrit 24L, Mean Corpuscular Volume 103H, Mean Corpuscular Hemoglobin 33, Mean Corpuscular Hemoglobin Concent 33, Red Cell Distribution Width 15.5H, Platelet Count 117L, Mean Platelet Volume 10.3, Neutrophils (%) (Auto) 80H, Lymphocytes (%) (Auto) 9L , Monocytes (%) (Auto) 10, Eosinophils (%) (Auto) 1, Basophils (%) (Auto) 0, Neutrophils # (Auto) 7.5, Lymphocytes # (Auto) 0.8L, Monocytes # (Auto) 1.0, Eosinophils # (Auto) 0.1, Basophils # (Auto) 0.0, Sodium Level 136, Potassium Level 4.2, Chloride Level 103, Carbon Dioxide Level 22, Anion Gap 11, Blood Urea Nitrogen 5L, Creatinine 0.68, Estimat Glomerular Filtration Rate > 60, BUN/Creatinine Ratio 7, Glucose Level 107H, Calcium Level 8.1L Microbiology 06/30/20 MRSA Screen - Final, Complete MRSA not isolated 06/29/20 Urine Culture - Final, Complete 3 or more isolates 06/29/20 Blood Culture - Preliminary, Resulted No growth Home Meds Active Protonix (Pantoprazole Sodium) 40 Mg Tablet.dr 40 Mg PO BID 60 Days Take twice daily for 8 weeks, then once daily Reported Coreg (Carvedilol) 25 Mg Tab 12.5 Mg PO BID TAKES OF A 25MG TAB Plavix (Clopidogrel Bisulfate) 75 Mg Tablet 75 Mg PO DAILY Lisinopril 40 Mg Tablet 40 Mg PO DAILY Oxycodone-Acetaminophen 10-325 (Oxycodone HCl/Acetaminophen) 1 Each Tablet 1 Tab PO Q6H PRN Tramadol HCl 50 Mg Tablet 50 Mg PO TID PRN Assessment/Pt Instructions Take medications as prescribed. Avoid NSAIDs. Begin pantoprazole twice daily for 8 weeks, then once daily. Follow-up with your primary care provider in about a week. Recheck your hemoglobin in a couple days. Return with worsening GI bleeding. Discharge Planning: <30 minutes discharge planning Discharge Instructions Discharge Diet: No Restrictions Activity as Tolerated: Yes Discharge Physical Examination Vital Signs Vital Signs Date Time Temp Pulse Resp B/P (MAP) Pulse Ox O2 Delivery O2 Flow Rate FiO2 07/03/20 08:00 95 High Flow N/C 5.00 07/03/20 08:00 36.4 68 18 122/60 (80) General Appearance: No Apparent Distress, Obese Respiratory: Lungs Clear, Normal Breath Sounds, No Respiratory Distress Cardiovascular: Regular Rate, Rhythm, No Edema, No Murmur Gastrointestinal: Normal Bowel Sounds, Non Tender, Soft Extremity: Normal Inspection, Non Tender, No Pedal Edema Skin: Normal Color, Warm/Dry Neurologic/Psychiatric: Alert, Oriented x3, No Motor/Sensory Deficits, Normal Mood/Affect Allergies: Coded Allergies: quinine (Verified Allergy, Unknown, 06/06/19) Copy Copies To 1: ROBERT ALCARAZ MD Discharge Summary Date of Admission Jun 30, 2020 at 01:08 Date of Discharge Discharge Date: Jul 03, 2020 Discharge Time: 11:56 Admission Diagnosis GI Hemorrhage Discharge Diagnosis Acute upper GI bleed due to NSAID-induced gastric ulcer (1) NSAID-induced gastric ulcer Status: Acute (2) GI bleed Status: Acute Qualifiers: Qualified Codes: K25.4 - Chronic or unspecified gastric ulcer with hemorrhage (3) Acute blood loss anemia Status: Acute (4) Acute renal failure Status: Resolved Qualifiers: Qualified Codes: N17.9 - Acute kidney failure, unspecified Clinical Quality Measures DVT/VTE Risk/Contraindication: Risk Factor Score Per Nursin RFS Level Per Nursing on Admit: 4+=Very High JUJU CURIEL MD Jul 03, 2020 11:56
[2020-07-03 12:00] VITALS: BP 132/54
--- NOTE | 2020-07-03 13:25 | NUR ---
CM/SS finalized discharge plan. Plan: The patient will return home. DME: The patient is a client of [facility] [place] of [place]. He has home oxygen, concentrator, portable tanks, and "liquid" oxygen. Home: The patient lives with his son and [id number]. He reports that they help him with all his ADL's so he doesn't have to hire anyone. Patient reports that he believes his portable oxygen was here in the hospital. CM/SS checked with staff in the ICU, EMS, and Emergency Room. CM/SS asked if the patient could call his son to see if it was at home. The patient's son stated that it was at home and he would bring it at time of discharge. No further needs.
[2020-07-03 13:45] VITALS: BP 122/60
--- NOTE | 2020-07-03 13:45 | NUR ---
WHIT MORENO JR demonstrates understanding of discharge instructions and accurately returns instructions upon questioning. Copy of Post-Discharge Instructions and Medication Discharge Instructions given to PT. WHIT MORENO JR is able to manage continuing needs after discharge. Patients belongings returned to PT. Skin dry and intact; no breakdown noted. Patient discharged [facility]- on 07/03/20 at 1345. WHIT MORENO JR left floor via , accompanied by STAFF/FAMILY.
== END 2020-07-03 13:45 | disposition home or self-care (01) | DRG 682 ==
LOC: EDUNIT# 22:51 → ER 22:52 → ICU 06-30 01:08 → 4TH 07-02 10:20
PROVIDERS: ADMIT Family Medicine; ATTEND Internal Medicine
PROC: 0DB68ZX Excision of Stomach, Via Natural or Artificial Opening Endoscopic, Diagnostic (ICD-10-PCS; principal; 2020-07-02 14:20)
PROC: 0DJD8ZZ Inspection of Lower Intestinal Tract, Via Natural or Artificial Opening Endoscopic (ICD-10-PCS; 2020-07-02 14:20)
DX: N17.9 Acute kidney failure, unspecified (principal); K25.0 Acute gastric ulcer with hemorrhage; D62 Acute posthemorrhagic anemia; J44.1 Chronic obstructive pulmonary disease with (acute) exacerbation; L97.209 Non-pressure chronic ulcer of unspecified calf with unspecified severity; I42.9 Cardiomyopathy, unspecified; T39.395A Adverse effect of other nonsteroidal anti-inflammatory drugs [NSAID], initial encounter; E86.0 Dehydration; I95.9 Hypotension, unspecified; E87.5 Hyperkalemia; K21.0 Gastro-esophageal reflux disease with esophagitis; K44.9 Diaphragmatic hernia without obstruction or gangrene; K29.70 Gastritis, unspecified, without bleeding; K64.1 Second degree hemorrhoids; K21.9 Gastro-esophageal reflux disease without esophagitis; E78.5 Hyperlipidemia, unspecified; I44.7 Left bundle-branch block, unspecified; G47.30 Sleep apnea, unspecified; M79.89 Other specified soft tissue disorders; I11.0 Hypertensive heart disease with heart failure; I25.10 Atherosclerotic heart disease of native coronary artery without angina pectoris; G62.9 Polyneuropathy, unspecified; N40.0 Benign prostatic hyperplasia without lower urinary tract symptoms; M19.91 Primary osteoarthritis, unspecified site; Z85.819 Personal history of malignant neoplasm of unspecified site of lip, oral cavity, and pharynx; I25.2 Old myocardial infarction; Z95.5 Presence of coronary angioplasty implant and graft; Z87.891 Personal history of nicotine dependence; Z99.81 Dependence on supplemental oxygen
CPT/HCPCS: 36415; 51702; 71045; 80048; 80053; 81000; 82274; 82805; 82962; 83605; 83615; 83735; 84100; 85007; 85014; 85018; 85025; 85027; 85610; 85730; 86141; 86850; 86900; 86901; 86920; 87040; 87081; 87088; 87635; 93005; 93041; 94760; 96361; 96374; 96375; 99291

== ENCOUNTER 2020-07-05 16:47 | Inpatient (IN) | payer BC ==
[~2020-07-05] VITALS: Ht 182.8 cm; Wt 124.0 kg
[2020-07-05] VITALS (8 sets, daily range): BP systolic 83–115; BP diastolic 54–85
[~2020-07-05 16:47] MED LIST changes: +IBUP-2473 PO; +PANT40TA2 PO
--- OUTSIDE RECORDS SUMMARY | 2020-07-05 16:52 | XMS REPORT | Continuity of Care Document ---
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 Name Role Phone [facility] Unavailable Unavailable Problems Problem Status Onset Date Classification Date Reported Comments Source Chronic low back pain 08/10/2017 Diagnosis 08/10/2017 [facility] Medications Medication Details Route Status Patient Instructions Ordering Provider Order Date Source atorvastatin 80 mg tablet ator vastatin 80 mg tablet Active [facility] azithromycin 250 mg tablet ed thromycin 250 mg tablet Active [facility] carvedilol 25 mg tablet carved ilol 25 mg tablet [facility] clopidogrel 75 mg tablet clopi dogrel 75 mg tablet Active [facility] furosemide 80 mg tablet furose mide 80 mg tablet Active [facility] Klor-Con M20 mEq tablet,extended release Klor-Con M20 mEq tablet,extended release Active [facility] lisinopril 40 mg tablet lisino pril 40 mg tablet Active [facility] metolazone 5 mg tablet metolaz one 5 mg tablet Active [facility] oxycodone-acetaminophen 10 mg-325 mg tablet oxycodone- acetaminophen 10 mg-325 mg tablet Active [facility] tramadol 50 mg tablet tramadol 50 mg tablet Active [facility] Allergies, Adverse Reactions, Alerts No Known Medication Allergies Immunizations No Data Provided for This Section Results Order Name Results Value Reference Range Date Interpretation Comments Source [facility] Pathology Reports No Data Provided for [...] Provider ADM Date DC Date Status Source [place] - [facility]_Neuro Surgery Jus Pinedo MD: [address] [place] [address], [address], [place] [address], Ph. [phone] [id number] Jus Pinedo 08/10/2017 [facility] Procedures Procedure Code Date Perfomer Comments Source None recorded. [facility] Plan of Care Plan of Care Date Source Reminders Provider Appointments None recorded. Lab None recorded. Referral None recorded. Procedures None recorded. Surgeries None recorded. Imaging None recorded. 08/10/2017 [facility] Social History No Data Provided for This Section Assessment and Plan No Data Provided for This Section Family History No Data Provided for This Section Advance Directives No Data Provided for This Section Functional Status No Data Provided for This Section
--- OUTSIDE RECORDS SUMMARY | 2020-07-05 16:55 | XMS REPORT | Continuity of Care Document ---
Author Organization Unknown Address Unknown Phone Unavailable Allergies Active Description Code Type Severity Reaction Onset Reported/Identified Relationship to Patient Clinical Status Yes quinine [id number] Drug Allergy Unknown N/A 06/06/2019 Medications There is no data. 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 52 08/21/2015 ENOCH [...] V58.69 08/21/2015 ENOCH CARL [facility], ALI FAC CCDS Ot V85.41 08/21/2015 LISSA [...] PRE -PROCEDURAL LABORATORY EXAMINATION 10/16/2016 Ot V72.81 [id number] CARDIOVASCULAR 10/16/2016 Ot 724.5 BACK ACHE NOS [...] PRE -PROCEDURAL LABORATORY EXAMINATION 10/21/2016 Ot V72.81 [id number] CARDIOVASCULAR 10/21/2016 Ot 724.5 BACK ACHE NOS [...] OF [place] CORONARY 10/30/2016 ENOCH CARL [place], ALI FACP [...] PRE -PROCEDURAL LABORATORY EXAMINATION 12/15/2016 Ot V72.81 [id number] CARDIOVASCULAR 12/15/2016 Ot 724.5 BACK ACHE NOS [...] (SEVERE) OBESITY DUE TO EXCESS CA 12/15/2016 NEOCH CARL FACC, ALI FACP CCDS Ot E78.4 [...] Ot I25. 10 ATHSCL HEART DISEASE OF [place] CORONARY 12/21/2016 CARMELO DAVIS DO Ot I50. [...] PRE -PROCEDURAL LABORATORY EXAMINATION 12/22/2016 Ot V72.81 [id number] CARDIOVASCULAR 12/22/2016 Ot 724.5 BACK ACHE NOS 12/22/2016 ENOCH CARL FACC, JOSE CARLOS GARCIA CCDS Ot E66.01 MORBID (SEVERE) OBESITY DUE [...] HYPERLIPIDEMIA 12/22/2016 ENOCH CARL [facility], ALI FACP CCDS Ot G47.33 OBSTRUCTIVE SLEEP APNEA (ADULT) (PEDIATR 12/22/2016 ENOCH CARL [facility], ALI FACP CCDS Ot I11.0 HYPERTENSIVE HEART [...] Ot I25. 10 ATHSCL HEART DISEASE OF [place] CORONARY 12/22/2016 CARMELO DAVIS DO Ot I50. 22 CHRONIC SYSTOLIC (CONGESTIVE) HEART FAIL 12/22/2016 CAREMLO DAVIS DO Ot J43. 8 OTHER EMPHYSEMA 12/22/2016 RYAN CARMELO CHEATHAM Ot R53. 83 OTHER FATIGUE 12/22/2016 RYAN CARMELO CHEATHAM Ot Z72. 0 TOBACCO USE 12/23/2016 POOJA SURINDER [employer] FLUME WORKER Ot R06.02 SHORTNESS OF BREATH 12/25/2016 POOJAMARIENatasha [employer]ightower FLUME WORKER Ot I25.10 ATHSCL HEART DISEASE OF [place] CORONARY 12/25/2016 POOJA SURINDER [employer] FLUME WORKER Ot I51.7 CARDIOMEGALY 12/25/2016 POOJAMARIENatasha [employer]ightower FLUME WORKER Ot J 90 PLEURAL EFFUSION, NOT ELSEWHERE CLASSIFI 12/30/2016 POOJAMARIENatasha [employer]ower FLUME WORKER Ot I25.10 ATHSCL HEART DISEASE OF [place] CORONARY 12/30/2016 POOJA SURINDER [employer] FLUME WORKER Ot I51.7 CARDIOMEGALY 12/30/2016 POOJA SURINDER [employer] FLUME WORKER Ot J 90 PLEURAL EFFUSION, NOT ELSEWHERE CLASSIFI 01/01/2017 TIMOTEO CHAPMAN MD Ot M47.816 SPONDYLOSIS W/O MYELOPATHY OR RADICULOPA 01/01/2017 TIMOTEO CHAPMAN MD Ot M51. 16 INTERVERTEBRAL DISC DISORDERS W RADICULO 01/01/2017 TIMOTEO CHAPMAN MD Ot M53. 3 SACROCOCCYGEAL DISORDERS, NOT ELSEWHERE 01/01/2017 TIMOTEO CHAPMAN MD Ot Z79. 02 PANTRY COOK (CURRENT) USE OF ANTITHROMBOTI 01/01/2017 TIMOTEO CHAPMAN MD Ot Z79.899 OTHER SENIOR CARE (CURRENT) DRUG THERAPY 01/06/2017 TIMOTEO CHAPMAN MD Ot M47.816 SPONDYLOSIS W/O MYELOPATHY OR RADICULOPA 01/06/2017 TIMOTEO CHAPMAN MD, Ot M51. 16 INTERVERTEBRAL DISC DISORDERS W RADICULO 01/06/2017 TIMOTEO CHAPMAN MD Ot M53. 3 SACROCOCCYGEAL DISORDERS, NOT ELSEWHERE 01/06/2017 TIMOTEO CHAPMAN MD Ot Z79. 02 SENIOR CARE (CURRENT) USE OF ANTITHROMBOTI 01/06/2017 TIMOTEO CHAPMAN MD, Ot Z79.899 OTHER PANTRY COOK (CURRENT) DRUG THERAPY 02/08/2017 TIMOTEO CHAPMAN MD Ot M43. 06 SPONDYLOLYSIS, LUMBAR REGION 02/11/2017 ENOCH CARL FACC, JOSE CARLOS GARCIA CCDS Ot G47.33 OBSTRUCTIVE SLEEP APNEA (ADULT) (PEDIATR 02/11/2017 ENOCH MD FACC, ALI FACP CCDS Ot I25.10 ATHSCL HEART DISEASE OF [place] CORONARY 02/11/2017 ENOCH MD FACC, ALI FACP [...] Ot 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 02/11/2017 NEOCH CARL FACC, ALI FACP CCDS Ot J43.8 [...] Ot J98.1 1 ATELECTASIS 12/09/2017 SURINDER PATTON FLUME WORKER Ot R06.02 SHORTNESS OF BREATH 12/09/2017 SURINDER PATTON FLUME WORKER Ot I25.10 ATHSCL HEART DISEASE OF [place] CORONARY 12/09/2017 SURINDER PATTON FLUME WORKER Ot I51.7 CARDIOMEGALY 12/09/2017 SURINDER PATTON FLUME WORKER Ot J 90 PLEURAL EFFUSION, NOT ELSEWHERE [...] DISEASE OF [place] CORONARY 12/22/2017 ENOCH CARL FACC, ALI FACP CCDS Ot I25.2 OLD MYOCARDIAL INFARCTION 12/22/2017 ENOCH CARL FACC, ALI FACP CCDS Ot I25.5 ISCHEMIC CARDIOMYOPATHY 12/22/2017 ENOCH CARL FAC, ALI FACP CCDS Ot I50.22 CHRONIC SYSTOLIC (CONGESTIVE) HEART FAIL 12/22/2017 EONCH HENSON, ALI FACP CCDS Ot J43.8 OTHER [...] [place] APRN Ot J43.8 OTHER EMPHYSEMA 01/18/2018 ORBERT ALCARAZ MD Ot J44.9 CHRONIC OBSTRUCTIVE PULMONARY [...] SHORTNESS OF BREATH 04/28/2018 COLT MARCOS L NATURAL RESOURCE MANAGER Ot E66.2 MORBID (SEVERE) OBESITY WITH ALVEOLAR HY 04/28/2018 PRITI COLT L NATURAL RESOURCE MANAGER Ot E78.5 HYPERLIPIDEMIA, UNSPECIFIED 04/28/2018 AZRAMA COLT L NATURAL RESOURCE MANAGER Ot I11.0 HYPERTENSIVE HEART DISEASE WITH HEART FA 04/28/2018 PRITI COLT L NATURAL RESOURCE MANAGER Ot I25.10 ATHSCL HEART DISEASE OF [place] CORONARY 04/28/2018 PRITI COLT L NATURAL RESOURCE MANAGER Ot I25.5 ISCHEMIC CARDIOMYOPATHY 04/28/2018 PRITI COLT L NATURAL RESOURCE MANAGER Ot I50.22 CHRONIC SYSTOLIC (CONGESTIVE) HEART FAIL 04/28/2018 COLT MARCOS L NATURAL RESOURCE MANAGER Ot J44.9 CHRONIC OBSTRUCTIVE PULMONARY DISEASE, U 04/28/2018 SEDA MARCOSHER L NATURAL RESOURCE MANAGER Ot R09.02 HYPOXEMIA 04/28/2018 SEDA MARCOSHER L NATURAL RESOURCE MANAGER Ot Z68.41 BODY MASS INDEX (BMI) 40.0-44.9, ADULT 04/28/2018 SEDA MARCOSHER L NATURAL RESOURCE MANAGER Ot Z87.891 PERSONAL HISTORY OF NICOTINE DEPENDENCE 04/28/2018 COLT MARCOS NATURAL RESOURCE MANAGER Ot E66.2 MORBID (SEVERE) OBESITY WITH ALVEOLAR HY 04/28/2018 COLT MARCOS NATURAL RESOURCE MANAGER Ot E78.5 HYPERLIPIDEMIA, UNSPECIFIED 04/28/2018 COLT MARCOS NATURAL RESOURCE MANAGER Ot I11.0 HYPERTENSIVE HEART DISEASE WITH HEART FA 04/28/2018 COLT MARCOS NATURAL RESOURCE MANAGER Ot I25.10 ATHSCL HEART DISEASE OF [place] CORONARY 04/28/2018 COLT MARCOS NATURAL RESOURCE MANAGER Ot I25.5 ISCHEMIC CARDIOMYOPATHY 04/28/2018 COLT MARCOS NATURAL RESOURCE MANAGER Ot I50.22 CHRONIC SYSTOLIC (CONGESTIVE) HEART FAIL 04/28/2018 COLT MARCOS NATURAL RESOURCE MANAGER Ot J44.9 CHRONIC OBSTRUCTIVE PULMONARY DISEASE, U 04/28/2018 COLT MARCOS NATURAL RESOURCE MANAGER Ot R09.02 HYPOXEMIA 04/28/2018 COLT MARCOS NATURAL RESOURCE MANAGER Ot Z68.41 BODY MASS INDEX (BMI) 40.0-44.9, ADULT 04/28/2018 COLT MARCOS NATURAL RESOURCE MANAGER Ot Z87.891 PERSONAL HISTORY OF NICOTINE DEPENDENCE [...] MON 08/22/2018 SURINDER PATTON APRN Ot Z79.891 SENIOR CARE (CURRENT) USE OF OPIATE ANALGE 08/26/2018 RAY [...] OBSTRUCTIVE PULMONARY DISEASE, U 09/09/2018 SURINDER PATTON FLUME WORKER Ot Z51.81 ENCOUNTER FOR THERAPEUTIC DRUG LEVEL MON 09/09/2018 SURINDER PATTON FLUME WORKER Ot Z79.891 PANTRY COOK (CURRENT) USE OF OPIATE ANALGE 09/09/2018 MINNIE [...] Ot I10 ESSENTIAL (PRIMARY) HYPERTENSION 09/09/2018 MINNIE EBLL MD Ot I25.10 ATHSCL HEART DISEASE OF [place] CORONARY 09/09/2018 MINNIE BELL MD Ot I65.23 OCCLUSION AND STENOSIS OF [place] 09/09/2018 MINNIE BELL MD Ot J44 .9 CHRONIC OBSTRUCTIVE PULMONARY DISEASE, U 09/09/2018 MINNIE BELL MD Ot K21 .9 GASTRO-ESOPHAGEAL REFLUX DISEASE WITHOUT 09/09/2018 MINNIE BELL MD, Ot Z79.02 SENIOR CARE (CURRENT) USE OF ANTITHROMBOTI 09/09/2018 MINNIE BELL MD Ot Z79.899 OTHER SENIOR CARE (CURRENT) DRUG THERAPY 09/09/2018 MINNIE BELL MD, Ot Z87.891 PERSONAL HISTORY OF NICOTINE DEPENDENCE 09/10/2018 SURINDER PATTON APRN Ot Z51.81 ENCOUNTER FOR THERAPEUTIC DRUG LEVEL MON 09/10/2018 SURINDER PATTON APRN Ot Z79.891 PANTRY COOK (CURRENT) USE OF OPIATE ANALGE 09/13/2018 MINNIE BELL MD Ot C32 .1 MALIGNANT NEOPLASM OF SUPRAGLOTTIS 09/13/2018 MINNIE BELL MD, Ot I10 ESSENTIAL (PRIMARY) HYPERTENSION 09/13/2018 MINNIE BELL MD Ot I25.10 ATHSCL HEART DISEASE OF [place] CORONARY 09/13/2018 MINNIE BELL MD Ot I65.23 OCCLUSION AND STENOSIS OF [place] 09/13/2018 MINNIE BELL MD Ot J44 .9 CHRONIC OBSTRUCTIVE PULMONARY DISEASE, U 09/13/2018 MINNIE BELL MD Ot K21 .9 GASTRO-ESOPHAGEAL REFLUX DISEASE WITHOUT 09/13/2018 MINNIE BELL MD Ot Z79.02 PANTRY COOK (CURRENT) USE OF ANTITHROMBOTI 09/13/2018 MINNIE BELL MD, Ot Z79.899 OTHER PANTRY COOK (CURRENT) DRUG THERAPY 09/13/2018 MINNIE BELL MD, [...] ATHSCL HEART DISEASE OF [place] CORONARY 09/19/2018 JOSE CARLOS KENDALL MD, FACC FACP CCDS Ot I25.2 OLD MYOCARDIAL INFARCTION 09/19/2018 JOSE CARLOS KENDALL MD, FACC FACP CCDS Ot I25.5 ISCHEMIC CARDIOMYOPATHY 09/19/2018 ENOCH CARL FACC, JOSE CARLOS FACP CCDS Ot I50.22 CHRONIC SYSTOLIC (CONGESTIVE) HEART FAIL 09/19/2018 JOSE CARLOS KENDALL MD, [facility] Ot J43.8 OTHER EMPHYSEMA 09/19/2018 ENOCH CARL FAC, ALI FACP CCDS Ot R06.02 SHORTNESS OF BREATH 09/19/2018 ENOCH CARL [facility], [facility] Ot R73.02 IMPAIRED GLUCOSE TOLERANCE (ORAL) [...] Ot I25.1 0 ATHSCL HEART DISEASE OF [place] CORONARY 10/05/2018 LIZZ MEZA MD Ot J44.9 CHRONIC OBSTRUCTIVE PULMONARY DISEASE, U 10/05/2018 LIZZ MEZA MD Ot K21.9 GASTRO-ESOPHAGEAL REFLUX DISEASE WITHOUT 10/05/2018 LIZZ MEZA MD Ot Z79.0 2 SENIOR CARE (CURRENT) USE OF ANTITHROMBOTI 10/05/2018 LIZZ MEZA MD Ot Z79.8 99 OTHER PANTRY COOK (CURRENT) DRUG THERAPY 10/05/2018 LIZZ MEZA MD Ot Z87.8 91 PERSONAL HISTORY OF NICOTINE DEPENDENCE 10/05/2018 LIZZ MEZA MD Ot C32.1 MALIGNANT NEOPLASM OF SUPRAGLOTTIS 10/05/2018 LIZZ MEZA MD Ot I10 ESSENTIAL (PRIMARY) HYPERTENSION 10/05/2018 LIZZ MEZA MD Ot I25.1 0 ATHSCL HEART DISEASE OF [place] CORONARY 10/05/2018 LIZZ MEZA MD Ot J44.9 CHRONIC OBSTRUCTIVE PULMONARY DISEASE, U 10/05/2018 LIZZ MEZA MD Ot K21.9 GASTRO-ESOPHAGEAL REFLUX DISEASE WITHOUT 10/05/2018 LIZZ MEZA MD Ot Z79.0 2 SENIOR CARE (CURRENT) USE OF ANTITHROMBOTI 10/05/2018 LIZZ MEZA MD Ot Z79.8 99 OTHER PANTRY COOK (CURRENT) DRUG THERAPY 10/05/2018 DERRICK CARL, LIZZ Barnes Ot Z87.8 91 PERSONAL HISTORY OF NICOTINE DEPENDENCE 10/05/2018 ADAMA ELVA K Ot 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, UNSPECIFI 10/05/2018 ADAMA ELVA K Ot E86.0 DEHYDRATION 10/05/2018 ADAMA ELVA Ot I10 ESSENTIAL (PRIMARY) HYPERTENSION 10/05/2018 ADAMA ELVA Ot I25.10 ATHSCL HEART DISEASE OF [place] CORONARY 10/05/2018 ADAMA ELVA Ot I25.2 OLD MYOCARDIAL INFARCTION 10/05/2018 ELVA GALAN DO Ot J44.9 CHRONIC OBSTRUCTIVE PULMONARY DISEASE, U 10/05/2018 ADAMA ELVA Ot K06.8 OTH DISRD OF GINGIVA AND EDENTULOUS ALVE 10/05/2018 ELVA GALAN DO Ot 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 10/05/2018 ELVA GALAN DO Ot Z79.02 PANTRY COOK (CURRENT) USE OF ANTITHROMBOTI 10/05/2018 ELVA GALAN DO Ot Z79.82 PANTRY COOK (CURRENT) USE OF ASPIRIN 10/05/2018 ELVA GALAN [...] ATHSCL HEART DISEASE OF [place] CORONARY 10/07/2018 ELVA GALAN DO Ot I25.2 OLD MYOCARDIAL INFARCTION 10/07/2018 ELVA GALAN DO Ot J44.9 CHRONIC OBSTRUCTIVE PULMONARY DISEASE, U 10/07/2018 ELVA GALAN DO Ot K06.8 OTH DISRD OF [place] AND EDENTULOUS ALVE 10/07/2018 ADAMA CHEATHAM ELVA Burns Ot 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 10/07/2018 ADAMA ELVA Grant Ot Z79.02 SENIOR CARE (CURRENT) USE OF ANTITHROMBOTI 10/07/2018 ACE GALAN DOA K Ot Z79.82 SENIOR CARE (CURRENT) USE OF ASPIRIN 10/07/2018 ACE GALAN [...] ATHSCL HEART DISEASE OF [place] CORONARY 10/07/2018 ELVA GALAN DO Ot I25.2 OLD MYOCARDIAL INFARCTION 10/07/2018 ELVA GALAN DO Ot J44.9 CHRONIC OBSTRUCTIVE PULMONARY DISEASE, U 10/07/2018 ELVA GALAN DO Ot K06.8 OTH DISRD OF GING[place] AND EDENTULOUS ALVE 10/07/2018 ADAMA CHEATHAM ELVA Grant Ot 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 10/07/2018 ADAMA CHEATHAM ELVA K Ot Z79.02 SENIOR CARE (CURRENT) USE OF ANTITHROMBOTI 10/07/2018 ACE GALAN DOA Grant Ot Z79.82 SENIOR CARE (CURRENT) USE OF ASPIRIN 10/07/2018 ACE GALAN [...] ATHSCL HEART DISEASE OF [place] CORONARY 10/28/2018 ENOCH CARL FACC, ALI FACP CCDS Ot I50.23 ACUTE ON CHRONIC SYSTOLIC (CONGESTIVE) H 10/28/2018 ENOCH CRAL FACC, ALI FACP CCDS Ot R06.02 SHORTNESS [...] ATHSCL HEART DISEASE OF [place] CORONARY 10/28/2018 ENOCH CARL FACC, ALI FACP [...] ATHSCL HEART DISEASE OF [place] CORONARY 10/28/2018 SURINDER PATTON APRN Ot I51.7 CARDIOMEGALY 10/28/2018 SURINDER PATTON APRN Ot J 90 PLEURAL EFFUSION, NOT ELSEWHERE CLASSIFI 10/28/2018 ARI CARL, TIMOTEO Sanchez Ot M43. 06 SPONDYLOLYSIS, LUMBAR REGION 10/28/2018 ENOCH CARL FACC, ALI FACP CCDS Ot G47.33 OBSTRUCTIVE SLEEP APNEA (ADULT) (PEDIATR 10/28/2018 ENOCH CARL FACC, ALI FACP CCDS Ot I25.10 ATHSCL HEART DISEASE OF [place] CORONARY 10/28/2018 ENOCH CARL FACC, ALI FACP [...] G47.33 OBSTRUCTIVE SLEEP APNEA (ADULT) (PEDIATR 10/28/2018 EONCH CARL FACC, ALI FACP CCDS Ot I25.10 ATHSCL HEART DISEASE OF [place] CORONARY 10/28/2018 ENOCH HENSONC, ALI FACP CCDS [...] ATHSCL HEART DISEASE OF [place] CORONARY 10/28/2018 ENOCH CARL FACC, ALI FACP [...] Ot I25.1 0 ATHSCL HEART DISEASE OF [place] CORONARY 12/13/2018 LIZZ MEZA MD, Ot J44.9 CHRONIC OBSTRUCTIVE PULMONARY DISEASE, U 12/13/2018 LIZZ MEZA MD, Ot K21.9 GASTRO-ESOPHAGEAL REFLUX DISEASE WITHOUT 12/13/2018 LIZZ MEZA MD, Ot Z51.0 ENCOUNTER FOR ANTINEOPLASTIC RADIATION T 12/13/2018 LIZZ MEZA MD E Ot Z79.0 2 PANTRY COOK (CURRENT) USE OF ANTITHROMBOTI 12/13/2018 LIZZ MEZA MD Ot Z79.8 99 OTHER PANTRY COOK (CURRENT) DRUG THERAPY 12/13/2018 LIZZ MEZA MD E Ot Z87.8 91 PERSONAL HISTORY OF NICOTINE DEPENDENCE 12/15/2018 LIZZ MEZA MD Ot C32.1 MALIGNANT NEOPLASM OF SUPRAGLOTTIS 12/15/2018 LIZZ MEZA MD E Ot I10 ESSENTIAL (PRIMARY) HYPERTENSION 12/15/2018 LIZZ MEZA MD E Ot I25.1 0 ATHSCL HEART DISEASE OF [place] CORONARY 12/15/2018 LIZZ MEZA MD E Ot J44.9 CHRONIC OBSTRUCTIVE PULMONARY DISEASE, U 12/15/2018 LIZZ MEZA MD E Ot K21.9 GASTRO-ESOPHAGEAL REFLUX DISEASE WITHOUT 12/15/2018 LIZZ MEZA MD E Ot Z79.0 2 PANTRY COOK (CURRENT) USE OF ANTITHROMBOTI 12/15/2018 LIZZ MEZA MD Ot Z79.8 99 OTHER PANTRY COOK (CURRENT) DRUG THERAPY 12/15/2018 LIZZ MEZA MD E Ot Z87.8 91 PERSONAL HISTORY OF NICOTINE DEPENDENCE 12/15/2018 LIZZ MEZA MD Ot C32.1 MALIGNANT NEOPLASM OF SUPRAGLOTTIS 12/15/2018 LIZZ MEZA MD E Ot I10 ESSENTIAL (PRIMARY) HYPERTENSION 12/15/2018 LIZZ MEZA MD E Ot I25.1 0 ATHSCL HEART DISEASE OF [place] CORONARY 12/15/2018 LIZZ MEZA MD Ot J44.9 CHRONIC OBSTRUCTIVE PULMONARY DISEASE, U 12/15/2018 LIZZ MEZA MD Ot K21.9 GASTRO-ESOPHAGEAL REFLUX DISEASE WITHOUT 12/15/2018 LIZZ MEZA MD Ot Z51.0 ENCOUNTER FOR ANTINEOPLASTIC RADIATION T 12/15/2018 LIZZ MEZA MD E Ot Z79.0 2 SENIOR CARE (CURRENT) USE OF ANTITHROMBOTI 12/15/2018 LIZZ MEZA MD E Ot Z79.8 99 OTHER SENIOR CARE (CURRENT) DRUG THERAPY 12/15/2018 LIZZ MEZA MD E Ot Z87.8 91 PERSONAL HISTORY OF NICOTINE DEPENDENCE 12/19/2018 LIZZ MEZA MD Ot C32.1 MALIGNANT NEOPLASM OF SUPRAGLOTTIS 12/19/2018 MEZA MD, LIZZ E Ot I10 ESSENTIAL (PRIMARY) HYPERTENSION 12/19/2018 LIZZ MEZA MD Ot I25.1 0 ATHSCL HEART DISEASE OF [place] CORONARY 12/19/2018 LIZZ MEZA MD Ot J44.9 CHRONIC OBSTRUCTIVE PULMONARY DISEASE, U 12/19/2018 LIZZ MEZA MD Ot K21.9 GASTRO-ESOPHAGEAL REFLUX DISEASE WITHOUT 12/19/2018 LIZZ MEZA MD Ot Z51.0 ENCOUNTER FOR ANTINEOPLASTIC RADIATION T 12/19/2018 LIZZ MEZA MD Ot Z79.0 2 SENIOR CARE (CURRENT) USE OF ANTITHROMBOTI 12/19/2018 LIZZ MEZA MD Ot Z79.8 99 OTHER SENIOR CARE (CURRENT) DRUG THERAPY 12/19/2018 LIZZ MEZA MD Ot Z87.8 91 PERSONAL HISTORY OF NICOTINE DEPENDENCE 01/05/2019 SURINDER PATTON APRN Ot Z51.81 ENCOUNTER FOR THERAPEUTIC DRUG LEVEL MON 01/05/2019 SURINDER PATTON FLUME WORKER Ot Z79.891 PANTRY COOK (CURRENT) USE OF OPIATE ANALGE 01/06/2019 MERYL CLIFFORD Ot I11.0 HYPERTENSIVE HEART DISEASE WITH HEART FA 01/06/2019 MERYL CLIFFORD Ot I25.10 ATHSCL HEART DISEASE OF [place] CORONARY 01/06/2019 MERYL CLIFFORD Ot I25.2 OLD MYOCARDIAL INFARCTION 01/06/2019 MERYL CLIFFORD Ot I50.9 HEART FAILURE, UNSPECIFIED 01/06/2019 MERYL CLIFFORD Ot J44.9 CHRONIC OBSTRUCTIVE PULMONARY DISEASE, U 01/06/2019 MERYL CLIFFORD Ot R05 COUGH 01/06/2019 GLORIA CLIFFORDIS Ot Z79.02 SENIOR CARE (CURRENT) USE OF ANTITHROMBOTI 01/06/2019 GLORIA CLIFFORDIS Ot Z79.82 SENIOR CARE (CURRENT) USE OF ASPIRIN 01/06/2019 MERYL CLIFFORD [...] CLIFFORDIS Ot I25.10 ATHSCL HEART DISEASE OF [place] CORONARY 01/09/2019 MERYL CLIFFORD Ot I25.2 OLD MYOCARDIAL INFARCTION 01/09/2019 MERYL CLIFFORD Ot I50.9 HEART FAILURE, UNSPECIFIED 01/09/2019 MERYL CLIFFORD Ot J44.9 CHRONIC OBSTRUCTIVE PULMONARY DISEASE, U 01/09/2019 MERYL CLIFFORD Ot R05 COUGH 01/09/2019 MERYL CLIFFORD Ot Z79.02 PANTRY COOK (CURRENT) USE OF ANTITHROMBOTI 01/09/2019 MERYL CLIFFORD Ot Z79.82 PANTRY COOK (CURRENT) USE OF ASPIRIN 01/09/2019 GLORIA CLIFFORDIS [...] Ot I25.1 0 ATHSCL HEART DISEASE OF [place] CORONARY 02/09/2019 LIZZ MEZA MD Ot J44.9 CHRONIC OBSTRUCTIVE PULMONARY DISEASE, U 02/09/2019 LIZZ MEZA MD Ot K21.9 GASTRO-ESOPHAGEAL REFLUX DISEASE WITHOUT 02/09/2019 LIZZ MEZA MD E Ot Z51.0 ENCOUNTER FOR ANTINEOPLASTIC RADIATION T 02/09/2019 LIZZ MEZA MD E Ot Z79.0 2 PANTRY COOK (CURRENT) USE OF ANTITHROMBOTI 02/09/2019 LIZZ MEZA MD Ot Z79.8 99 OTHER PANTRY COOK (CURRENT) DRUG THERAPY 02/09/2019 LIZZ MEZA MD E Ot Z87.8 91 PERSONAL HISTORY OF NICOTINE DEPENDENCE 03/14/2019 LIZZ MEZA MD E Ot C32.1 MALIGNANT NEOPLASM OF SUPRAGLOTTIS 03/14/2019 LIZZ MEZA MD E Ot I10 ESSENTIAL (PRIMARY) HYPERTENSION 03/14/2019 LIZZ MEZA MD E Ot I25.1 0 ATHSCL HEART DISEASE OF [place] CORONARY 03/14/2019 LIZZ MEZA MD Ot J44.9 CHRONIC OBSTRUCTIVE PULMONARY DISEASE, U 03/14/2019 LIZZ MEZA MD Ot K21.9 GASTRO-ESOPHAGEAL REFLUX DISEASE WITHOUT 03/14/2019 LIZZ MEZA MD E Ot Z51.0 ENCOUNTER FOR ANTINEOPLASTIC RADIATION T 03/14/2019 LIZZ MEZA MD Ot Z79.0 2 SENIOR CARE (CURRENT) USE OF ANTITHROMBOTI 03/14/2019 LIZZ MEZA MD E Ot Z79.8 99 OTHER PANTRY COOK (CURRENT) DRUG THERAPY 03/14/2019 LIZZ MEZA MD Ot Z87.8 91 PERSONAL HISTORY OF NICOTINE DEPENDENCE 03/15/2019 LIZZ MEZA MD Ot C32.1 MALIGNANT NEOPLASM OF SUPRAGLOTTIS 03/15/2019 LIZZ MEZA MD E Ot I10 ESSENTIAL (PRIMARY) HYPERTENSION 03/15/2019 LIZZ MEZA MD E Ot I25.1 0 ATHSCL HEART DISEASE OF [place] CORONARY 03/15/2019 LIZZ MEZA MD Ot J44.9 CHRONIC OBSTRUCTIVE PULMONARY DISEASE, U 03/15/2019 LIZZ MEZA MD Ot K21.9 GASTRO-ESOPHAGEAL REFLUX DISEASE WITHOUT 03/15/2019 LIZZ MEZA MD E Ot Z51.0 ENCOUNTER FOR ANTINEOPLASTIC RADIATION T 03/15/2019 LIZZ MEZA MD E Ot Z79.0 2 SENIOR CARE (CURRENT) USE OF ANTITHROMBOTI 03/15/2019 LIZZ MEZA MD Ot Z79.8 99 OTHER SENIOR CARE (CURRENT) DRUG THERAPY 03/15/2019 LIZZ MEZA MD [...] Ot I25.1 0 ATHSCL HEART DISEASE OF [place] CORONARY 06/06/2019 LIZZ MEZA MD, Ot J44.9 CHRONIC OBSTRUCTIVE PULMONARY DISEASE, U 06/06/2019 LIZZ MEZA MD Ot K21.9 GASTRO-ESOPHAGEAL REFLUX DISEASE WITHOUT 06/06/2019 LIZZ MEZA MD Ot Z51.0 ENCOUNTER FOR ANTINEOPLASTIC RADIATION T 06/06/2019 LIZZ MEZA MD Ot Z79.0 2 SENIOR CARE (CURRENT) USE OF ANTITHROMBOTI 06/06/2019 LIZZ MEZA MD Ot Z79.8 99 OTHER PANTRY COOK (CURRENT) DRUG THERAPY 06/06/2019 LIZZ MEZA MD, [...] MD Ot 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 06/12/2019 SHANNAN WALKER MD [...] Ot E78 .5 HYPERLIPIDEMIA, UNSPECIFIED 06/12/2019 SHANNAN WALKRE MD Ot F17.210 NICOTINE DEPENDENCE, CIGARETTES, UNCOMPL 06/12/2019 SHANNAN WALKER MD, Ot G62 .9 POLYNEUROPATHY, UNSPECIFIED 06/12/2019 SHANNAN WALKER MD Ot I10 ESSENTIAL (PRIMARY) HYPERTENSION 06/12/2019 SHANNAN WALKER MD Ot I11 .0 HYPERTENSIVE HEART DISEASE WITH HEART FA 06/12/2019 SHANNAN WALKER MD Ot 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 06/12/2019 SHANNAN WALKER MD, [...] Ot I25.1 0 ATHSCL HEART DISEASE OF [place] CORONARY 06/21/2019 LIZZ MEZA MD Ot J44.9 CHRONIC OBSTRUCTIVE PULMONARY DISEASE, U 06/21/2019 LIZZ MEZA MD Ot K21.9 GASTRO-ESOPHAGEAL REFLUX DISEASE WITHOUT 06/21/2019 LIZZ MEZA MD Ot Z51.0 ENCOUNTER FOR ANTINEOPLASTIC RADIATION T 06/21/2019 LIZZ MEZA MD Ot Z79.0 2 SENIOR CARE (CURRENT) USE OF ANTITHROMBOTI 06/21/2019 LIZZ MEZA MD Ot Z79.8 99 OTHER SENIOR CARE (CURRENT) DRUG THERAPY 06/21/2019 LIZZ MEZA MD Ot Z87.8 91 PERSONAL HISTORY OF NICOTINE DEPENDENCE 06/22/2019 LIZZ MEZA MD Ot C32.1 MALIGNANT NEOPLASM OF SUPRAGLOTTIS 06/22/2019 LIZZ MEZA MD Ot I10 ESSENTIAL (PRIMARY) HYPERTENSION 06/22/2019 LIZZ MEZA MD Ot I25.1 0 ATHSCL HEART DISEASE OF [place] CORONARY 06/22/2019 LIZZ MEZA MD Ot J44.9 CHRONIC OBSTRUCTIVE PULMONARY DISEASE, U 06/22/2019 LIZZ MEZA MD Ot K21.9 GASTRO-ESOPHAGEAL REFLUX DISEASE WITHOUT 06/22/2019 LIZZ MEZA MD Ot Z79.0 2 [place] (CURRENT) USE OF ANTITHROMBOTI 06/22/2019 LIZZ MEZA MD Ot Z79.8 99 OTHER [place] (CURRENT) DRUG THERAPY 06/22/2019 LIZZ MEZA MD Ot Z87.8 91 PERSONAL HISTORY OF NICOTINE DEPENDENCE 12/14/2019 ROBERT ALCARAZ MD Ot J44.9 CHRONIC OBSTRUCTIVE PULMONARY DISEASE, U 12/14/2019 SURINDER PATTON APRN Ot Z51.81 ENCOUNTER FOR THERAPEUTIC DRUG LEVEL MON 12/14/2019 SURINDER PATTON FLUME WORKER Ot Z79.891 PAN[place]OOK (CURRENT) USE OF OPIATE ANALGE 12/14/2019 MINNIE [...] Ot I25.1 0 ATHSCL HEART DISEASE OF [place] CORONARY 12/14/2019 LIZZ MEZA MD Ot J44.9 CHRONIC OBSTRUCTIVE PULMONARY DISEASE, U 12/14/2019 LIZZ MEZA MD Ot K21.9 GASTRO-ESOPHAGEAL REFLUX DISEASE WITHOUT 12/14/2019 LIZZ MEZA MD Ot Z79.0 2 SENIOR CARE (CURRENT) USE OF ANTITHROMBOTI 12/14/2019 LIZZ MEZA MD Ot Z79.8 99 OTHER [place] (CURRENT) DRUG THERAPY 12/14/2019 LIZZ MEZA MD Ot Z87.8 91 PERSONAL HISTORY OF NICOTINE DEPENDENCE 12/14/2019 ROBERT ALCARAZ MD Ot J44.9 CHRONIC OBSTRUCTIVE PULMONARY DISEASE, U 12/14/2019 SURINDER PATTON FLUME WORKER Ot Z51.81 ENCOUNTER FOR THERAPEUTIC DRUG LEVEL MON 12/14/2019 SURINDER PATTON FLUME WORKER Ot Z79.891 SENIOR CARE (CURRENT) USE OF OPIATE ANALGE 12/14/2019 MINNIE [...] MD Ot I10 ESSENTIAL (PRIMARY) HYPERTENSION 12/14/2019 ILZZ MEZA MD, Ot I25.1 0 ATHSCL HEART DISEASE OF [place] CORONARY 12/14/2019 LIZZ MEZA MD, Ot J44.9 CHRONIC OBSTRUCTIVE PULMONARY DISEASE, U 12/14/2019 LIZZ MEZA MD, Ot K21.9 GASTRO-ESOPHAGEAL REFLUX DISEASE WITHOUT 12/14/2019 LIZZ MEZA MD, Ot Z79.0 2 PANTRY [place]OOK (CURRENT) USE OF ANTITHROMBOTI 12/14/2019 LIZZ MEZA MD, Ot Z79.8 99 OTHER [place] (CURRENT) DRUG THERAPY 12/14/2019 LIZZ MEZA MD, [...] ATHSCL HEART DISEASE OF [place] CORONARY 01/18/2020 ENOCH CARL FACC, ALI FACP [...] PERSONAL HISTORY OF OTHER DISEASES OF TH 06/11/2020 LISSA CARL, ROBERT Bryant Ot J44.9 CHRONIC OBSTRUCTIVE PULMONARY DISEASE, U 06/11/2020 SURINDER PATTON APRN Ot Z51.81 ENCOUNTER FOR THERAPEUTIC DRUG LEVEL MON 06/11/2020 SURINDER PATTON APRN Ot Z79.891 [place] (CURRENT) USE OF OPIATE ANALGE 06/11/2020 MINNIE BELL MD Ot J32 .0 CHRONIC MAXILLARY SINUSITIS 06/11/2020 MINNIE BELL MD Ot J38 .7 OTHER DISEASES OF [place] 06/11/2020 MINNIE BELL MD Ot J43 .9 EMPHYSEMA, UNSPECIFIED 06/11/2020 MINNIE BELL MD Ot Z95.810 PRESENCE OF AUTOMATIC (IMPLANTABLE) CARD 06/11/2020 MINNIE BELL MD Ot C76 .0 MALIGNANT NEOPLASM OF HEAD, FACE AND NEC 06/11/2020 MINNIE BELL MD Ot J38 .7 OTHER DISEASES OF [place] 06/11/2020 LIZZ MEZA MD Ot C32.1 MALIGNANT NEOPLASM OF SUPRAGLOTTIS 06/11/2020 LIZZ MEZA MD Ot I10 ESSENTIAL (PRIMARY) HYPERTENSION 06/11/2020 LIZZ MEZA MD Ot I25.1 0 ATHSCL HEART DISEASE OF [place] CORONARY 06/11/2020 LIZZ MEZA MD, Ot J44.9 CHRONIC OBSTRUCTIVE PULMONARY DISEASE, U 06/11/2020 LIZZ MEZA MD Ot K21.9 GASTRO-ESOPHAGEAL REFLUX DISEASE WITHOUT 06/11/2020 LIZZ MEZA MD Ot Z79.0 2 SENIOR CARE (CURRENT) USE OF ANTITHROMBOTI 06/11/2020 LIZZ MEZA MD Ot Z79.8 99 OTHER SENIOR CARE (CURRENT) DRUG THERAPY 06/11/2020 LIZZ MEZA MD Ot Z87.8 91 PERSONAL HISTORY OF NICOTINE DEPENDENCE 06/11/2020 ENOCH CARL [place], ALI FACP CCDS Ot E78.5 HYPERLIPIDEMIA, UNSPECIFIED 06/11/2020 ENOCH CARL FACC, ALI FACP CCDS Ot G47.33 OBSTRUCTIVE SLEEP APNEA (ADULT) (PEDIATR 06/11/2020 ENOCH CARL FACC, ALI FACP CCDS Ot I11.0 HYPERTENSIVE HEART DISEASE WITH HEART FA 06/11/2020 ENOCH CARL FACC, ALI FACP CCDS Ot I25.10 ATHSCL HEART DISEASE OF [place] CORONARY 06/11/2020 ENOCH CARL FACC, ALI FACP CCDS Ot I25.5 ISCHEMIC CARDIOMYOPATHY 06/11/2020 ENOCH CARL [facility], ALI FACP CCDS Ot I44.69 OTHER FASCICULAR BLOCK 06/11/2020 ENOCH CARL [facility], ALI FACP CCDS Ot I50.22 CHRONIC SYSTOLIC (CONGESTIVE) HEART FAIL 06/11/2020 ENOCH CARL [facility], ALI FACP CCDS Ot I71.4 ABDOMINAL AORTIC ANEURYSM, WITHOUT RUPTU 06/11/2020 ENOCH CARL [facility], ALI FACP CCDS Ot J44.9 CHRONIC OBSTRUCTIVE PULMONARY DISEASE, U 06/11/2020 ENOCH CARL [facility], ALI FACP CCDS Ot Z87.19 PERSONAL HISTORY OF OTHER DISEASES OF TH 06/12/2020 ENOCH HENSON, ALI FACP CCDS Ot I65.23 OCCLUSION AND STENOSIS OF BILATERAL [place] 06/12/2020 ENOCH CARL [facility], ALI FACP CCDS Ot I71.4 ABDOMINAL AORTIC ANEURYSM, WITHOUT RUPTU 06/12/2020 ENOCH CARL [facility], ALI FACP CCDS Ot C32.9 MALIGNANT NEOPLASM OF L[place], UNSPECIFIE 06/12/2020 ENOCH CARL [facility], ALI FACP CCDS Ot E66.2 MORBID (SEVERE) OBESITY WITH ALVEOLAR HY 06/12/2020 ENOCH CARL [facility], ALI FACP CCDS Ot E74.39 OTHER DISORDERS OF INTESTINAL CARBOHYDRA 06/12/2020 ENOCH CARL [facility], ALI FACP CCDS Ot E78.5 HYPERLIPIDEMIA, UNSPECIFIED 06/12/2020 ENOCH CARL [facility], ALI FACP CCDS Ot G89.29 OTHER CHRONIC PAIN 06/12/2020 ENOCH CARL [facility], ALI FACP CCDS Ot I11.0 HYPERTENSIVE HEART DISEASE WITH HEART FA 06/12/2020 ENOCH CARL [facility], ALI FACP CCDS Ot I25.10 ATHSCL HEART DISEASE OF [place] CORONARY 06/12/2020 ENOCH HENSON, ALI FACP CCDS Ot I25.5 ISCHEMIC CARDIOMYOPATHY 06/12/2020 ENOCH CARL [facility], ALI FACP CCDS Ot I47.9 PAROXYSMAL TACHYCARDIA, UNSPECIFIED 06/12/2020 ENOCH CARL [facility], ALI FACP CCDS Ot I50.22 CHRONIC SYSTOLIC (CONGESTIVE) HEART FAIL 06/12/2020 ENOCH CARL [facility], ALI FACP CCDS Ot I71.4 ABDOMINAL AORTIC ANEURYSM, WITHOUT RUPTU 06/12/2020 ENOCH HENSON, ALI FACP CCDS Ot I77.89 OTHER SPECIFIED DISORDERS OF ARTERIES AN 06/12/2020 ENOCH CARL FACC, ALI FACP CCDS Ot J44.9 CHRONIC OBSTRUCTIVE PULMONARY DISEASE, U 06/12/2020 ENOCH CARL FACC, ALI FACP CCDS Ot M19.90 UNSPECIFIED OSTEOARTHRITIS, UNSPECIFIED 06/12/2020 ENOCH HENSON, ALI FACP CCDS Ot M54.9 DORSALGIA, UNSPECIFIED 06/12/2020 ENOCH CARL [facility], ALI FACP CCDS Ot R06.09 OTHER FORMS OF DYSPNEA 06/12/2020 ENOCH CARL [facility], ALI FACP CCDS Ot R07.9 CHEST PAIN, UNSPECIFIED 06/12/2020 ENOCH HENSON, ALI FACP CCDS Ot R09.02 HYPOXEMIA 06/12/2020 ENOCH CARL FACC, ALI FACP CCDS Ot Z53.9 PROCEDURE AND TREATMENT NOT CARRIED OUT, 06/12/2020 ENOCH CARL FACC, ALI FACP CCDS Ot Z68.41 BODY MASS INDEX (BMI) 40.0-44.9, ADULT 06/12/2020 ENOCH HENSON, ALI FACP CCDS Ot Z68.43 BODY MASS INDEX (BMI) 50.0-59.9, ADULT 06/12/2020 ENOCH CARL [facility], ALI FACP CCDS Ot Z79.82 PANTRY COOK (CURRENT) USE OF ASPIRIN 06/12/2020 ENOCH CARL FACC, ALI FACP CCDS Ot Z79.891 PANTRY COOK (CURRENT) USE OF OPIATE ANALGE 06/12/2020 ENOCH HENSON, ALI FACP CCDS Ot Z79.899 OTHER SENIOR CARE (CURRENT) DRUG THERAPY 06/12/2020 ENOCH HENSON, ALI FACP CCDS Ot Z87.891 PERSONAL HISTORY OF NICOTINE DEPENDENCE 06/12/2020 ENOCH CARL FACC, ALI FACP CCDS Ot Z88.8 ALLERGY STATUS TO OTH DRUG/MEDS/BIOL SUB 06/13/2020 ENOCH CARL FACC, ALI FACP CCDS Ot C32.9 MALIGNANT NEOPLASM OF LARYNX, UNSPECIFIE 06/13/2020 ENOCH CARL FACC, ALI FACP CCDS Ot E66.2 MORBID (SEVERE) OBESITY WITH ALVEOLAR HY 06/13/2020 ENOCH CARL FACC, ALI FACP CCDS Ot E74.39 OTHER DISORDERS OF INTESTINAL CARBOHYDRA 06/13/2020 ENOCH CARL [facility], ALI FACP CCDS Ot E78.5 HYPERLIPIDEMIA, UNSPECIFIED 06/13/2020 ENOCH CARL [facility], ALI FACP CCDS Ot G89.29 OTHER CHRONIC PAIN 06/13/2020 ENOCH CARL [facility], ALI FACP CCDS Ot I11.0 HYPERTENSIVE HEART DISEASE WITH HEART FA 06/13/2020 ENOCH CARL [facility], ALI FACP CCDS Ot I25.10 ATHSCL HEART DISEASE OF [place] CORONARY 06/13/2020 ENOCH CARL [facility], ALI FACP CCDS Ot I25.5 ISCHEMIC CARDIOMYOPATHY 06/13/2020 ENOCH CARL [facility], ALI FACP CCDS Ot I47.9 PAROXYSMAL TACHYCARDIA, UNSPECIFIED 06/13/2020 ENOCH CARL [facility], ALI FACP CCDS Ot I50.22 CHRONIC SYSTOLIC (CONGESTIVE) HEART FAIL 06/13/2020 ENOCH CARL [facility], ALI FACP CCDS Ot I71.4 ABDOMINAL AORTIC ANEURYSM, WITHOUT RUPTU 06/13/2020 ENOCH CARL [facility], ALI FACP CCDS Ot I77.89 OTHER SPECIFIED DISORDERS OF ARTERIES AN 06/13/2020 ENOCH CARL [facility], ALI FACP CCDS Ot J44.9 CHRONIC OBSTRUCTIVE PULMONARY DISEASE, U 06/13/2020 ENOCH CARL [facility], ALI FACP CCDS Ot M19.90 UNSPECIFIED OSTEOARTHRITIS, UNSPECIFIED 06/13/2020 ENOCH CARL [facility], ALI FACP CCDS Ot M54.9 DORSALGIA, UNSPECIFIED 06/13/2020 ENOCH CARL [facility], ALI FACP CCDS Ot R06.09 OTHER FORMS OF DYSPNEA 06/13/2020 ENOCH CARL [facility], ALI FACP CCDS Ot R07.9 CHEST PAIN, UNSPECIFIED 06/13/2020 ENOCH CARL [facility], ALI FACP CCDS Ot R09.02 HYPOXEMIA 06/13/2020 ENOCH CARL [facility], ALI FACP CCDS Ot Z53.9 PROCEDURE AND TREATMENT NOT CARRIED OUT, 06/13/2020 ENOCH HENSON, ALI FACP CCDS Ot Z68.41 BODY MASS INDEX (BMI) 40.0-44.9, ADULT 06/13/2020 ENOCH HENSON, ALI FACP CCDS Ot Z68.43 BODY MASS INDEX (BMI) 50.0-59.9, ADULT 06/13/2020 ENOCH CARL [facility], ALI SIXTOP CCDS Ot Z79.82 PANTRY COOK (CURRENT) USE OF ASPIRIN 06/13/2020 ENOCH CARL [facility], JOSE CARLOS HENSONP CCDS Ot Z79.891 PANTRY COOK (CURRENT) USE OF OPIATE ANALGE 06/13/2020 ENOCH CARL [facility], ALI FACP CCDS Ot Z79.899 OTHER SENIOR CARE (CURRENT) DRUG THERAPY 06/13/2020 ENOCH CARL [facility], ALI FACP CCDS Ot Z87.891 PERSONAL HISTORY OF NICOTINE DEPENDENCE 06/13/2020 ENOCH CARL [facility], ALI FACP CCDS Ot Z88.8 ALLERGY STATUS TO OT DRUG/MEDS/BIOL SUB 06/14/2020 COLT MARCOS [employer] RESOURCE MANAGER Ot I95.9 HYPOTENSION, UNSPECIFIED 06/14/2020 COLT MARCOS [employer] RESOURCE MANAGER Ot N28.9 DISORDER OF KIDNEY AND URETER, UNSPECIFI 06/14/2020 LISA PENA MD Ot E86. 0 DEHYDRATION 06/14/2020 LISA PENA MD Ot E86. 1 HYPOVOLEMIA 06/14/2020 LISA PENA MD Ot E87. 8 OTH DISORDERS OF ELECTROLYTE AND FLUID B 06/14/2020 LISA PENA MD Ot G62. 9 POLYNEUROPATHY, UNSPECIFIED 06/14/2020 LISA PENA MD Ot I10 ESSENTIAL (PRIMARY) HYPERTENSION 06/14/2020 LISA PENA MD Ot I25. 10 ATHSCL HEART DISEASE OF [place] CORONARY 06/14/2020 LISA PENA MD Ot I25. 2 OLD MYOCARDIAL INFARCTION 06/14/2020 LISA PENA MD Ot J44. 9 CHRONIC OBSTRUCTIVE PULMONARY DISEASE, U 06/14/2020 LISA PENA MD Ot L97.211 NON-PRS CHRONIC ULCER OF RIGHT [place] 06/14/2020 LISA PENA MD Ot Z79. 82 SENIOR CARE (CURRENT) USE OF ASPIRIN 06/14/2020 LISA PENA MD Ot Z79.891 PANTRY COOK (CURRENT) USE OF OPIATE ANALGE 06/14/2020 LISA PENA MD Ot Z85. 21 PERSONAL HISTORY OF MALIGNANT NEOPLASM O 06/14/2020 LISA PENA MD Ot Z87.891 PERSONAL HISTORY OF NICOTINE DEPENDENCE 06/14/2020 LISA PENA MD, Ot Z88. 8 ALLERGY STATUS TO OTH DRUG/MEDS/BIOL SUB 06/14/2020 LISA PENA MD, Ot Z95. 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 06/20/2020 NICOLETTE RICHARDS MD, Ot I89.0 LYMPHEDEMA, NOT ELSEWHERE CLASSIFIED 06/20/2020 NICOLETTE RICHARDS MD, Ot J44.9 CHRONIC OBSTRUCTIVE PULMONARY DISEASE, U 06/20/2020 NICOLETTE RICHARDS MD, Ot L97.212 NON- PRESSURE CHRONIC ULCER OF RIGHT CALF 06/20/2020 NICOLETTE RICHARDS MD Ot M19.90 UNSPECIFIED OSTEOARTHRITIS, UNSPECIFIED 06/20/2020 NICOLETTE RICHARDS MD Ot N18.3 CHRONIC KIDNEY DISEASE, STAGE 3 (MODERAT 06/20/2020 NICOLETTE RICHARDS MD Ot N40.0 BENIGN PROSTATIC HYPERPLASIA WITHOUT LOW 06/20/2020 NICOLETTE RICHARDS MD Ot Z85.818 PRSNL HX OF MALIG NEOPLM OF SITE OF LIP, 06/20/2020 NICOLETTE RICHARDS MD, Ot Z87.891 PERSONAL HISTORY OF NICOTINE DEPENDENCE 06/20/2020 NICOLETTE RICHARDS MD, Ot Z92.3 PERSONAL HISTORY OF IRRADIATION 06/20/2020 NICOLETTE RICHARDS MD Ot Z95.5 PRESENCE OF CORONARY ANGIOPLASTY IMPLANT 06/20/2020 NICOLETTE RICHARDS MD Ot Z95.810 PRESENCE OF AUTOMATIC (IMPLANTABLE) CARD 06/21/2020 MINNIE ARNDT MD, Ot G62 .9 POLYNEUROPATHY, UNSPECIFIED 06/21/2020 MINNIE ARNDT MD, Ot I25 .2 OLD MYOCARDIAL INFARCTION 06/21/2020 MINNIE ARNDT MD, Ot I50 .9 HEART FAILURE, UNSPECIFIED 06/21/2020 MINNIE ARNDT MD, Ot I70.232 ATHSCL [place] ARTERIES OF RIGHT LEG W UL 06/21/2020 MINNIE ARNDT MD, Ot 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 06/21/2020 MINNIE ARNDT MD, Ot I89 .0 LYMPHEDEMA, NOT ELSEWHERE CLASSIFIED 06/21/2020 MINNIE ARNDT MD, Ot I95 .9 HYPOTENSION, UNSPECIFIED 06/21/2020 MINNIE ARNDT MD, Ot J44 .9 CHRONIC OBSTRUCTIVE PULMONARY DISEASE, U 06/21/2020 MINNIE ARNDT MD, Ot L97.212 NON-PRESSURE CHRONIC ULCER OF RIGHT CALF 06/21/2020 MINNIE ARNDT MD, Ot M19.90 UNSPECIFIED OSTEOARTHRITIS, UNSPECIFIED 06/21/2020 MINNIE ARNDT MD, Ot N18 .3 CHRONIC KIDNEY DISEASE, STAGE 3 (MODERAT 06/21/2020 MINNIE ARNDT MD, Ot Z79.01 SENIOR CARE (CURRENT) USE OF ANTICOAGULANT 06/21/2020 MINNIE ARNDT MD, Ot Z85.819 PRSNL HX OF MALIG NEOPLM OF [facility] SITE LI 06/21/2020 MINNIE ARNDT MD, Ot Z87.891 PERSONAL HISTORY OF NICOTINE DEPENDENCE 06/21/2020 MINNIE ARNDT MD, Ot Z92 .3 PERSONAL HISTORY OF IRRADIATION 06/21/2020 MINNIE ARNDT MD, Ot Z95 .5 PRESENCE OF CORONARY ANGIOPLASTY IMPLANT 06/21/2020 MINNIE ARNDT MD, Ot Z95.810 PRESENCE OF AUTOMATIC (IMPLANTABLE) CARD 06/23/2020 MINNIE ARNDT MD, Ot G62 .9 POLYNEUROPATHY, UNSPECIFIED 06/23/2020 MINNIE ARNDT MD, Ot I25 .2 OLD MYOCARDIAL INFARCTION 06/23/2020 MINNIE ARNDT MD, Ot I50 .9 HEART FAILURE, UNSPECIFIED 06/23/2020 MINNIE ARNDT MD, Ot I70.232 ATHSCL [place] ARTERIES OF RIGHT LEG W UL 06/23/2020 MINNIE ARNDT MD, Ot 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 06/23/2020 MINNIE ARNDT MD, Ot I89 .0 LYMPHEDEMA, NOT ELSEWHERE CLASSIFIED 06/23/2020 MINNIE ARNDT MD, Ot I95 .9 HYPOTENSION, UNSPECIFIED 06/23/2020 MINNIE ARNDT MD, Ot J44 .9 CHRONIC OBSTRUCTIVE PULMONARY DISEASE, U 06/23/2020 MINNIE ARNDT MD, Ot L97.212 NON-PRESSURE CHRONIC ULCER OF RIGHT CALF 06/23/2020 MINNIE ARNDT MD, Ot M19.90 UNSPECIFIED OSTEOARTHRITIS, UNSPECIFIED 06/23/2020 MINNIE ARNDT MD, Ot N18 .3 CHRONIC KIDNEY DISEASE, STAGE 3 (MODERAT 06/23/2020 MINNIE ARNDT MD Ot Z79.01 PANTRY COOK (CURRENT) USE OF ANTICOAGULANT 06/23/2020 MINNIE ARNDT MD, Ot Z85.819 PRSNL HX OF MALIG NEOPLM OF [facility] SITE LI 06/23/2020 MINNIE ARNDT MD, Ot Z87.891 PERSONAL HISTORY OF NICOTINE DEPENDENCE 06/23/2020 MINNIE ARNDT MD, Ot Z92 .3 PERSONAL HISTORY OF IRRADIATION 06/23/2020 MINNIE ARNDT MD, Ot Z95 .5 PRESENCE OF CORONARY ANGIOPLASTY IMPLANT 06/23/2020 MINNIE ARNDT MD, Ot Z95.810 PRESENCE OF AUTOMATIC (IMPLANTABLE) CARD 06/28/2020 ENOCH CARL FACC, JOSE CARLOS FACP CCDS Ot C32.9 MALIGNANT NEOPLASM OF LARYNX, UNSPECIFIE 06/28/2020 ENOCH CARL FACC, ALI FACP CCDS Ot E66.2 MORBID (SEVERE) OBESITY WITH ALVEOLAR HY 06/28/2020 ENOCH CARL FACC, ALI FACP CCDS Ot E74.39 OTHER DISORDERS OF INTESTINAL CARBOHYDRA 06/28/2020 ENOCH CARL FACC, ALI FACP CCDS Ot E78.5 HYPERLIPIDEMIA, UNSPECIFIED 06/28/2020 ENOCH CARL FACC, ALI FACP CCDS Ot G89.29 OTHER CHRONIC PAIN 06/28/2020 ENOCH CARL FACC, ALI FACP CCDS Ot I11.0 HYPERTENSIVE HEART DISEASE WITH HEART FA 06/28/2020 ENOCH CARL FACC, ALI FACP CCDS Ot I25.10 ATHSCL HEART DISEASE OF [place] CORONARY 06/28/2020 ENOCH CARL FACC, ALI FACP CCDS Ot I25.5 ISCHEMIC CARDIOMYOPATHY 06/28/2020 ENOCH CARL FACC, ALI FACP CCDS Ot I47.9 PAROXYSMAL TACHYCARDIA, UNSPECIFIED 06/28/2020 ENOCH CARL FACC, ALI FACP CCDS Ot I50.22 CHRONIC SYSTOLIC (CONGESTIVE) HEART FAIL 06/28/2020 ENOCH CARL FACC, ALI FACP CCDS Ot I71.4 ABDOMINAL AORTIC ANEURYSM, WITHOUT RUPTU 06/28/2020 ENOCH CARL FACC, ALI FACP CCDS Ot I77.89 OTHER SPECIFIED DISORDERS OF ARTERIES AN 06/28/2020 ENOCH CARL [facility], ALI FACP CCDS Ot J44.9 CHRONIC OBSTRUCTIVE PULMONARY DISEASE, U 06/28/2020 ENOCH CARL [facility], ALI FACP CCDS Ot M19.90 UNSPECIFIED OSTEOARTHRITIS, UNSPECIFIED 06/28/2020 ENOCH CARL [facility], ALI FACP CCDS Ot M54.9 DORSALGIA, UNSPECIFIED 06/28/2020 ENOCH CARL [facility], ALI FACP CCDS Ot R06.09 OTHER FORMS OF DYSPNEA 06/28/2020 ENOCH CARL [facility], ALI FACP CCDS Ot R07.9 CHEST PAIN, UNSPECIFIED 06/28/2020 ENOCH CARL [facility], ALI FACP CCDS Ot R09.02 HYPOXEMIA 06/28/2020 ENOCH CARL [facility], ALI FACP CCDS Ot Z53.9 PROCEDURE AND TREATMENT NOT CARRIED OUT, 06/28/2020 ENOCH HENSON, ALI FACP CCDS Ot Z68.41 BODY MASS INDEX (BMI) 40.0-44.9, ADULT 06/28/2020 ENOCH CARL [facility], ALI FACP CCDS Ot Z68.43 BODY MASS INDEX (BMI) 50.0-59.9, ADULT 06/28/2020 ENOCH CARL [facility], ALI FACP CCDS Ot Z79.82 PANTRY COOK (CURRENT) USE OF ASPIRIN 06/28/2020 ENOCH HENSON, ALI FACP CCDS Ot Z79.891 PANTRY COOK (CURRENT) USE OF OPIATE ANALGE 06/28/2020 ENOCH CARL [facility], ALI FACP CCDS Ot Z79.899 OTHER SENIOR CARE (CURRENT) DRUG THERAPY 06/28/2020 ENOCH CARL [facility], ALI FACP CCDS Ot Z87.891 PERSONAL HISTORY OF NICOTINE DEPENDENCE 06/28/2020 ENOCH CARL [facility], ALI FACP CCDS Ot Z88.8 ALLERGY STATUS TO OTH DRUG/MEDS/BIOL SUB 06/28/2020 ENOCH HENSON, ALI FACP CCDS Ot C32.9 MALIGNANT NEOPLASM OF LARYNX, UNSPECIFIE 06/28/2020 ENOCH HENSON, ALI FACP CCDS Ot E66.2 MORBID (SEVERE) OBESITY WITH ALVEOLAR HY 06/28/2020 ENOCH HENSON, ALI FACP CCDS Ot E74.39 OTHER DISORDERS OF INTESTINAL CARBOHYDRA 06/28/2020 ENOCH MD FACC, ALI FACP CCDS Ot E78.5 HYPERLIPIDEMIA, UNSPECIFIED 06/28/2020 ENOCH CARL FACC, ALI FACP CCDS Ot G89.29 OTHER CHRONIC PAIN 06/28/2020 ENOCH CARL [facility], ALI FACP CCDS Ot I11.0 HYPERTENSIVE HEART DISEASE WITH HEART FA 06/28/2020 ENOCH CARL FACC, ALI FACP CCDS Ot I25.10 ATHSCL HEART DISEASE OF [place] CORONARY 06/28/2020 ENOCH CARL FACC, ALI FACP CCDS Ot I25.5 ISCHEMIC CARDIOMYOPATHY 06/28/2020 ENOCH MD [facility], ALI FACP CCDS Ot I47.9 PAROXYSMAL TACHYCARDIA, UNSPECIFIED 06/28/2020 ENOCH CARL FAC, ALI FACP CCDS Ot I50.22 CHRONIC SYSTOLIC (CONGESTIVE) HEART FAIL 06/28/2020 ENOCH CARL [facility], ALI FACP CCDS Ot I71.4 ABDOMINAL AORTIC ANEURYSM, WITHOUT RUPTU 06/28/2020 ENOCH CARL [facility], ALI FACP CCDS Ot I77.89 OTHER SPECIFIED DISORDERS OF ARTERIES AN 06/28/2020 ENOCH CARL [facility], ALI FACP CCDS Ot J44.9 CHRONIC OBSTRUCTIVE PULMONARY DISEASE, U 06/28/2020 ENOCH CARL [facility], ALI FACP CCDS Ot M19.90 UNSPECIFIED OSTEOARTHRITIS, UNSPECIFIED 06/28/2020 ENOCH CARL [facility], ALI FACP CCDS Ot M54.9 DORSALGIA, UNSPECIFIED 06/28/2020 ENOCH CARL FAC, ALI FACP CCDS Ot R06.09 OTHER FORMS OF DYSPNEA 06/28/2020 ENOCH CALR [facility], ALI FACP CCDS Ot R07.9 CHEST PAIN, UNSPECIFIED 06/28/2020 ENOCH CARL [facility], ALI FACP CCDS Ot R09.02 HYPOXEMIA 06/28/2020 ENOCH CARL FAC, ALI FACP CCDS Ot Z53.9 PROCEDURE AND TREATMENT NOT CARRIED OUT, 06/28/2020 ENOCH CARL FACC, ALI FACP CCDS Ot Z68.41 BODY MASS INDEX (BMI) 40.0-44.9, ADULT 06/28/2020 ENOCH CARL FACC, ALI FACP CCDS Ot Z68.43 BODY MASS INDEX (BMI) 50.0-59.9, ADULT 06/28/2020 ENOCH CARL FACC, ALI FACP CCDS Ot Z79.82 PANTRY COOK (CURRENT) USE OF ASPIRIN 06/28/2020 ENOCH CARL [facility], ALI FACP CCDS Ot Z79.891 PANTRY COOK (CURRENT) USE OF OPIATE ANALGE 06/28/2020 ENOCH HENSON, ALI FACP CCDS Ot Z79.899 OTHER SENIOR CARE (CURRENT) DRUG THERAPY 06/28/2020 ENOCH CARL [facility], ALI FACP CCDS Ot Z87.891 PERSONAL HISTORY OF NICOTINE DEPENDENCE 06/28/2020 ENOCH HENSON, ALI FACP CCDS Ot Z88.8 ALLERGY STATUS TO OT DRUG/MEDS/BIOL SUB 06/28/2020 ENOCH CARL [facility], ALI FACP CCDS Ot E78.5 HYPERLIPIDEMIA, UNSPECIFIED 06/28/2020 ENOCH CARL [facility], ALI FACP CCDS Ot G47.33 OBSTRUCTIVE SLEEP APNEA (ADULT) (PEDIATR 06/28/2020 ENOCH CARL [facility], ALI FACP CCDS Ot I25.10 ATHSCL HEART DISEASE OF [place] CORONARY 06/28/2020 ENOCH CARL [facility], ALI FACP CCDS Ot I44.7 LEFT BUNDLE-BRANCH BLOCK, UNSPECIFIED 06/28/2020 ENOCH CARL [facility], ALI FACP CCDS Ot I50.22 CHRONIC SYSTOLIC (CONGESTIVE) HEART FAIL 06/28/2020 ENOCH HENSON, ALI FACP CCDS Ot I95.9 HYPOTENSION, UNSPECIFIED 06/28/2020 ENOCH CARL [facility], ALI FACP CCDS Ot J43.8 OTHER EMPHYSEMA 06/28/2020 ENOCH CARL [facility], ALI FACP CCDS Ot Z95.810 PRESENCE OF AUTOMATIC (IMPLANTABLE) CARD 07/01/2020 ENOCH HENSON, ALI FACP CCDS Ot C32.9 MALIGNANT NEOPLASM OF LARYNX, UNSPECIFIE 07/01/2020 ENOCH CARL [facility], ALI FACP CCDS Ot E66.2 MORBID (SEVERE) OBESITY WITH ALVEOLAR HY 07/01/2020 ENOCH HENSON, ALI FACP CCDS Ot E74.39 OTHER DISORDERS OF INTESTINAL CARBOHYDRA 07/01/2020 ENOCH HENSON, ALI FACP CCDS Ot E78.5 HYPERLIPIDEMIA, UNSPECIFIED 07/01/2020 ENOCH HENSON, ALI FACP CCDS Ot G89.29 OTHER CHRONIC PAIN 07/01/2020 ENOCH HENSONC, ALI FACP CCDS Ot I11.0 HYPERTENSIVE HEART DISEASE WITH HEART FA 07/01/2020 ENOCH CARL [facility], ALI FACP CCDS Ot I25.10 ATHSCL HEART DISEASE OF [place] CORONARY 07/01/2020 ENOCH CARL [facility], ALI FACP CCDS Ot I25.5 ISCHEMIC CARDIOMYOPATHY 07/01/2020 ENOCH HENSON, ALI FACP CCDS Ot I47.9 PAROXYSMAL TACHYCARDIA, UNSPECIFIED 07/01/2020 ENOCH CARL [facility], ALI FACP CCDS Ot I50.22 CHRONIC SYSTOLIC (CONGESTIVE) HEART FAIL 07/01/2020 ENOCH CARL [facility], ALI FACP CCDS Ot I71.4 ABDOMINAL AORTIC ANEURYSM, WITHOUT RUPTU 07/01/2020 ENOCH CARL [facility], ALI FACP CCDS Ot I77.89 OTHER SPECIFIED DISORDERS OF ARTERIES AN 07/01/2020 ENOCH CARL [facility], ALI FACP CCDS Ot J44.9 CHRONIC OBSTRUCTIVE PULMONARY DISEASE, U 07/01/2020 ENOCH HENSON, ALI FACP CCDS Ot M19.90 UNSPECIFIED OSTEOARTHRITIS, UNSPECIFIED 07/01/2020 ENOCH CARL [facility], ALI FACP CCDS Ot M54.9 DORSALGIA, UNSPECIFIED 07/01/2020 ENOCH CARL [facility], ALI FACP CCDS Ot R06.09 OTHER FORMS OF DYSPNEA 07/01/2020 ENOCH CARL [facility], ALI FACP CCDS Ot R07.9 CHEST PAIN, UNSPECIFIED 07/01/2020 ENOCH CARL [facility], ALI FACP CCDS Ot R09.02 HYPOXEMIA 07/01/2020 ENOCH CARL [facility], ALI FACP CCDS Ot Z53.9 PROCEDURE AND TREATMENT NOT CARRIED OUT, 07/01/2020 ENOCH HENSON, ALI FACP CCDS Ot Z68.41 BODY MASS INDEX (BMI) 40.0-44.9, ADULT 07/01/2020 ENOCH HENSON, ALI FACP CCDS Ot Z68.43 BODY MASS INDEX (BMI) 50.0-59.9, ADULT 07/01/2020 ENOCH HENSON, ALI FACP CCDS Ot Z79.82 PANTRY COOK (CURRENT) USE OF ASPIRIN 07/01/2020 ENOCH HENSON, ALI FACP CCDS Ot Z79.891 PANTRY COOK (CURRENT) USE OF OPIATE ANALGE 07/01/2020 ENOCH HENSON, ALI FACP CCDS Ot Z79.899 OTHER PANTRY COOK (CURRENT) DRUG THERAPY 07/01/2020 ENOCH CARL [facility], [facility] CCDS Ot Z87.891 PERSONAL HISTORY OF NICOTINE DEPENDENCE 07/01/2020 ENOCH CARL [facility], [facility] CCDS Ot Z88.8 ALLERGY STATUS TO OTH DRUG/MEDS/BIOL SUB 07/03/2020 JUJU CURIEL MD Ot D62 ACUTE POSTHEMORRHAGIC ANEMIA 07/03/2020 JUJU CURIEL MD Ot E78. 5 HYPERLIPIDEMIA, UNSPECIFIED 07/03/2020 JUJU CURIEL MD Ot E86. 0 DEHYDRATION 07/03/2020 JUJU CURIEL MD Ot E87. 5 HYPERKALEMIA 07/03/2020 JUJU CURIEL MD Ot G47. 30 SLEEP APNEA, UNSPECIFIED 07/03/2020 JUJU CURIEL MD Ot G62. 9 POLYNEUROPATHY, UNSPECIFIED 07/03/2020 JJUU CURIEL MD Ot I11. 0 HYPERTENSIVE HEART DISEASE WITH HEART FA 07/03/2020 JUJU CURIEL MD Ot I25. 10 ATHSCL HEART DISEASE OF [place] CORONARY 07/03/2020 JUJU CURIEL MD Ot I25. 2 OLD MYOCARDIAL INFARCTION 07/03/2020 JUJU CURIEL MD Ot I42. 9 CARDIOMYOPATHY, UNSPECIFIED 07/03/2020 JUJU CURIEL MD Ot I44. 7 LEFT BUNDLE-BRANCH BLOCK, UNSPECIFIED 07/03/2020 JUJU CURIEL MD Ot I95. 9 HYPOTENSION, UNSPECIFIED 07/03/2020 JUJU CURIEL MD Ot J44. 1 CHRONIC OBSTRUCTIVE PULMONARY DISEASE W 07/03/2020 JUJU CURIEL MD Ot K21. 0 GASTRO-ESOPHAGEAL REFLUX DISEASE WITH ES 07/03/2020 JUJU CURIEL MD Ot K21. 9 GASTRO-ESOPHAGEAL REFLUX DISEASE WITHOUT 07/03/2020 JUJU CURIEL MD Ot K25. 0 ACUTE GASTRIC ULCER WITH HEMORRHAGE 07/03/2020 JUJU CURIEL MD Ot K29. 70 GASTRITIS, UNSPECIFIED, WITHOUT BLEEDING 07/03/2020 JUJU CURIEL MD Ot K44. 9 DIAPHRAGMATIC HERNIA WITHOUT OBSTRUCTION 07/03/2020 JUJU CURIEL MD Ot K64. 1 SECOND DEGREE HEMORRHOIDS 07/03/2020 JUJU CURIEL MD, Ot L97.209 NON-PRESSURE CHRONIC ULCER OF UNSP CALF 07/03/2020 JUJU CURIEL MD, Ot M19. 91 PRIMARY OSTEOARTHRITIS, UNSPECIFIED SITE 07/03/2020 JUJU CURIEL MD, Ot M79. 89 OTHER SPECIFIED SOFT TISSUE DISORDERS 07/03/2020 JUJU CURIEL MD, Ot N17. 9 ACUTE KIDNEY FAILURE, UNSPECIFIED 07/03/2020 JUJU CURIEL MD, Ot N40. 0 BENIGN PROSTATIC HYPERPLASIA WITHOUT LOW 07/03/2020 JUJU CURIEL MD, Ot T39.395A ADVERSE EFFECT OF NONSTEROIDAL ANTI-INFL 07/03/2020 JUJU CURIEL MD, Ot Z85.819 PRSNL [facility] 07/03/2020 JUJU CURIEL MD, Ot Z87.891 PERSONAL HISTORY OF NICOTINE DEPENDENCE 07/03/2020 JUJU CURIEL MD Ot Z95. 5 PRESENCE OF CORONARY ANGIOPLASTY IMPLANT 07/03/2020 JUJU CURIEL MD, Ot Z99. 81 DEPENDENCE ON SUPPLEMENTAL OXYGEN 07/04/2020 MINNIE ARNDT MD, Ot 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 07/04/2020 MINNIE ARNDT MD, Ot I89 .0 LYMPHEDEMA, NOT ELSEWHERE CLASSIFIED 07/04/2020 MINNIE ARNDT MD, Ot L97.212 NON-PRESSURE CHRONIC ULCER OF RIGHT CALF 07/04/2020 MINNIE ARNDT MD, Ot N18 .3 CHRONIC KIDNEY DISEASE, STAGE 3 (MODERAT Procedures Code Description Performed By Per formed On [id number] EX CISION OF STOMACH, ENDO, DIAGN 07/02/2020 [id number] IN SPECTION OF LOWER INTESTINAL TRACT, EN 07/02/2020 Results Test Result Range [id number] - 12/24/16 09:08 Serum or plasma urea [...] mg/dL 8.5-10.1 Automated blood complete blood count (he mogram) panel - 03/16/17 10:10 Blood leukocytes [...] in urine Negative NRG Serum or plasma 3-indsuahhol-4,5-dimethy l-3,3-diphenylpyrrolidine (eddp) detection Negative NRG Urine opiates detection Negative NRG Urine phencyclidine (PCP) detection Negative NRG Propoxyphene [mass/volume] in urine Negative NRG Urine salicylates measurement (mass/volume) Negati ve NRG Urine tetrahydrocannabinol detection by screening meth od Negative NRG [id number] - 08/25/18 11:02 Serum or plasma urea [...] 0.0-0.1 Whole blood basic metabolic panel - 07/16 14:12 Serum or plasma sodium measurement (moles/volume) [...] NR Whole blood basic metabolic panel - 06/15 [...] pa shanice - 06/06/19 14:43 WRISTBAND NUMBER [id number] NRG ABO+Rh group AP NRG Blood group [...] VE NEGATIVE Automated blood complete blood count ( mogram) panel - 06/11/19 05:24 Blood leukocytes [...] plasma calcium measurement (mass/volume) 8.5 mg/dL 8.5-10.1 Automated blood complete blood count (he mogram) panel - 06/11/20 07:53 Blood leukocytes automated count (number/volume) 9.6 10*3/uL 4.3-11.0 Blood erythrocytes automated count (number/volume) 4.09 10*6/uL 4.35-5.85 Venous blood hemoglobin measurement (mass/volume) 13.5 g/dL 13.3-17.7 Blood hematocrit (volume fraction) 41 % 40-54 Automated erythrocyte mean corpuscular volume 99 [ foz_us] 80-99 Automated erythrocyte mean corpuscular h emoglobin (mass per erythrocyte) 33 pg 25-34 Automated erythrocyte mean corpuscular h emoglobin concentration measurement (mass/volume) 33 g/dL 32-36 Automated erythrocyte distribution width ratio 13. 5 % 10.0- 14.5 Automated blood platelet count (count/volume) 183 10*3/uL 130-400 Automated blood platelet mean volume measurement 10.8 [foz_us] 7.4-10.4 PT panel in platelet poor plasma by coag ulation assay - 06/11/20 07:53 Prothrombin time (PT) in platelet poor plasma by coagu lation assay 13.4 s 12.2-14.7 INR in platelet poor plasma or blood by coagulation as say 1.0 0.8-1.4 Activated partial thromboplastin time (a PTT) in platelet poor plasma bycoagulation assay - 06/11/20 07:53 Activated partial thromboplastin time (a PTT) in platelet poor plasma bycoagulation assay 41 s 24-35 Comprehensive metabolic panel - 06/11/20 07:53 Serum or plasma sodium measurement (moles/volume) 133 mmol/L 135-145 Serum or plasma potassium measurement (moles/volume) 5.2 mmol/L 3.6-5.0 Serum or plasma chloride measurement (moles/volume) 101 mmol/L 98-107 Carbon dioxide 16 mmol/L 21-32 Serum or plasma anion gap determination (moles/volume) 16 mmol/L 5-14 Serum or plasma urea nitrogen measurement (mass/volume ) 105 mg/dL 7-18 Serum or plasma creatinine measurement (mass/volume) 2.07 mg/dL 0.60-1.30 Serum or plasma urea nitrogen/creatinine mass ratio 51 NRG Serum or plasma creatinine measurement w ith calculation of estimated glomerular filtration rate 32 NRG Serum or plasma glucose measurement (mass/volume) 111 mg/dL 70-105 Serum or plasma calcium measurement (mass/volume) 9.1 mg/dL 8.5-10.1 Serum or plasma total bilirubin measurement (mass/volu me) 0.5 mg/dL 0.1-1.0 Serum or plasma alkaline phosphatase fauzia surement (enzymatic activity/volume) 112 U/L 40-136 Serum or plasma aspartate aminotransfera se measurement (enzymatic activity/volume) 27 U/L 5-34 Serum or plasma alanine aminotransferase measurement (enzymatic activity/volume) 30 U/L 0-55 Serum or plasma protein measurement (mass/volume) 8.1 g/dL 6.4-8.2 Serum or plasma albumin measurement (mass/volume) 4.1 g/dL 3.2-4.5 CALCIUM CORRECTED 9.0 mg/dL 8.5-10.1 Lipid 1996 panel - 06/11/20 07:53 Serum or plasma triglyceride measurement (mass/volume) 99 mg/dL <150 Serum or plasma cholesterol measurement (mass/volume) 134 mg/dL < 200 Serum or plasma cholesterol in HDL measurement (mass/v olume) 27 mg/dL 40-60 Cholesterol in LDL [mass/volume] in serum or plasma by direct assay 94 mg/dL 1-129 Serum or plasma cholesterol in VLDL measurement (mass/ volume) 20 mg/dL 5-40 Methicillin resistant Staphylococcus aur eus (MRSA) screening culture - 06/11/20 07:53 Methicillin resistant Staphylococcus aureus (MRSA) scr eening culture NEG NRG Complete blood count (CBC) with automate d white blood cell (WBC) differential - 06/11/20 12:18 Blood leukocytes automated count (number/volume) 7.3 10*3/uL 4.3-11.0 Blood erythrocytes automated count (number/volume) 3.66 10*6/uL 4.35-5.85 Venous blood hemoglobin measurement (mass/volume) 12.3 g/dL 13.3-17.7 Blood hematocrit (volume fraction) 37 % 40-54 Automated erythrocyte mean corpuscular volume 100 [foz_us] 80-99 Automated erythrocyte mean corpuscular h emoglobin (mass per erythrocyte) 34 pg 25-34 Automated erythrocyte mean corpuscular h emoglobin concentration measurement (mass/volume) 34 g/dL 32-36 Automated erythrocyte distribution width ratio 13. 7 % 10.0- 14.5 Automated blood platelet count (count/volume) 156 10*3/uL 130-400 Automated blood platelet mean volume measurement 9.9 [foz_us] 7.4-10.4 Automated blood neutrophils/100 leukocytes 76 % 42-75 Automated blood lymphocytes/100 leukocytes 12 % 12-44 Blood monocytes/100 leukocytes 8 % 0-12 Automated blood eosinophils/100 leukocytes 4 % 0-10 Automated blood basophils/100 leukocytes 0 % 0-10 Blood neutrophils automated count (number/volume) 5.5 10*3 1.8-7.8 Blood lymphocytes automated count (number/volume) 0.8 10*3 1.0-4.0 Blood monocytes automated count (number/volume) 0. 6 10*3 0.0-1.0 Automated eosinophil count 0.3 10*3/uL 0 .0-0.3 Automated blood basophil count (count/volume) 0.0 10*3/uL 0.0-0.1 Whole blood basic metabolic panel - 05/29 03/18 12:18 Serum or plasma sodium measurement (moles/volume) 134 mmol/L 135-145 Serum or plasma potassium measurement (moles/volume) 5.0 mmol/L 3.6-5.0 Serum or plasma chloride measurement (moles/volume) 105 mmol/L 98-107 Carbon dioxide 18 mmol/L 21-32 Serum or plasma anion gap determination (moles/volume) 11 mmol/L 5-14 Serum or plasma urea nitrogen measurement (mass/volume ) 97 mg/dL 7-18 Serum or plasma creatinine measurement (mass/volume) 1.87 mg/dL 0.60-1.30 Serum or plasma urea nitrogen/creatinine mass ratio 52 NRG Serum or plasma creatinine measurement w ith calculation of estimated glomerular filtration rate 37 NRG Serum or plasma glucose measurement (mass/volume) 88 mg/dL 70-105 Serum or plasma calcium measurement (mass/volume) 8.1 mg/dL 8.5-10.1 Complete blood count (CBC) with automate d white blood cell (WBC) differential - 06/12/20 12:34 Blood leukocytes automated count (number/volume) 5.8 10*3/uL 4.3-11.0 Blood erythrocytes automated count (number/volume) 3.84 10*6/uL 4.35-5.85 Venous blood hemoglobin measurement (mass/volume) 12.8 g/dL 13.3-17.7 Blood hematocrit (volume fraction) 39 % 40-54 Automated erythrocyte mean corpuscular volume 100 [foz_us] 80-99 Automated erythrocyte mean corpuscular h emoglobin (mass per erythrocyte) 33 pg 25-34 Automated erythrocyte mean corpuscular h emoglobin concentration measurement (mass/volume) 33 g/dL 32-36 Automated erythrocyte distribution width ratio 13. 8 % 10.0- 14.5 Automated blood platelet count (count/volume) 162 10*3/uL 130-400 Automated blood platelet mean volume measurement 9.9 [foz_us] 7.4-10.4 Automated blood neutrophils/100 leukocytes 70 % 42-75 Automated blood lymphocytes/100 leukocytes 13 % 12-44 Blood monocytes/100 leukocytes 11 % 0-12 Automated blood eosinophils/100 leukocytes 6 % 0-10 Automated blood basophils/100 leukocytes 0 % 0-10 Blood neutrophils automated count (number/volume) 4.1 10*3 1.8-7.8 Blood lymphocytes automated count (number/volume) 0.7 10*3 1.0-4.0 Blood monocytes automated count (number/volume) 0. 6 10*3 0.0-1.0 Automated eosinophil count 0.4 10*3/uL 0 .0-0.3 Automated blood basophil count (count/volume) 0.0 10*3/uL 0.0-0.1 Comprehensive metabolic panel - 06/12/20 12:34 Serum or plasma sodium measurement (moles/volume) 138 mmol/L 135-145 Serum or plasma potassium measurement (moles/volume) 4.6 mmol/L 3.6-5.0 Serum or plasma chloride measurement (moles/volume) 106 mmol/L 98-107 Carbon dioxide 21 mmol/L 21-32 Serum or plasma anion gap determination (moles/volume) 11 mmol/L 5-14 Serum or plasma urea nitrogen measurement (mass/volume ) 72 mg/dL 7-18 Serum or plasma creatinine measurement (mass/volume) 1.27 mg/dL 0.60-1.30 Serum or plasma urea nitrogen/creatinine mass ratio 57 NRG Serum or plasma creatinine measurement w ith calculation of estimated glomerular filtration rate 57 NRG Serum or plasma glucose measurement (mass/volume) 104 mg/dL 70-105 Serum or plasma calcium measurement (mass/volume) 8.9 mg/dL 8.5-10.1 Serum or plasma total bilirubin measurement (mass/volu me) 0.5 mg/dL 0.1-1.0 Serum or plasma alkaline phosphatase fauzia surement (enzymatic activity/volume) 102 U/L 40-136 Serum or plasma aspartate aminotransfera se measurement (enzymatic activity/volume) 25 U/L 5-34 Serum or plasma alanine aminotransferase measurement (enzymatic activity/volume) 26 U/L 0-55 Serum or plasma protein measurement (mass/volume) 7.4 g/dL 6.4-8.2 Serum or plasma albumin measurement (mass/volume) 3.9 g/dL 3.2-4.5 CALCIUM CORRECTED 9.0 mg/dL 8.5-10.1 Complete blood count (CBC) with automate d white blood cell (WBC) differential - 06/29/20 23:08 Blood leukocytes automated count (number/volume) 13.5 10*3/uL 4.3-11.0 Blood erythrocytes automated count (number/volume) 3.30 10*6/uL 4.35-5.85 Venous blood hemoglobin measurement (mass/volume) 11.1 g/dL 13.3-17.7 Blood hematocrit (volume fraction) 34 % 40-54 Automated erythrocyte mean corpuscular volume 104 [foz_us] 80-99 Automated erythrocyte mean corpuscular h emoglobin (mass per erythrocyte) 34 pg 25-34 Automated erythrocyte mean corpuscular h emoglobin concentration measurement (mass/volume) 32 g/dL 32-36 Automated erythrocyte distribution width ratio 13. 8 % 10.0- 14.5 Automated blood platelet count (count/volume) 205 10*3/uL 130-400 Automated blood platelet mean volume measurement 11.0 [foz_us] 7.4-10.4 Automated blood neutrophils/100 leukocytes 81 % 42-75 Automated blood lymphocytes/100 leukocytes 10 % 12-44 Blood monocytes/100 leukocytes 8 % 0-12 Automated blood eosinophils/100 leukocytes 1 % 0-10 Automated blood basophils/100 leukocytes 0 % 0-10 Blood neutrophils automated count (number/volume) 10.9 10*3 1.8-7.8 Blood lymphocytes automated count (number/volume) 1.4 10*3 1.0-4.0 Blood monocytes automated count (number/volume) 1. 0 10*3 0.0-1.0 Automated eosinophil count 0.1 10*3/uL 0 .0-0.3 Automated blood basophil count (count/volume) 0.0 10*3/uL 0.0-0.1 Comprehensive metabolic panel - 06/29/20 23:08 Serum or plasma sodium measurement (moles/volume) 133 mmol/L 135-145 Serum or plasma potassium measurement (moles/volume) 7.2 mmol/L 3.6-5.0 Serum or plasma chloride measurement (moles/volume) 105 mmol/L 98-107 Carbon dioxide 17 mmol/L 21-32 Serum or plasma anion gap determination (moles/volume) 11 mmol/L 5-14 Serum or plasma urea nitrogen measurement (mass/volume ) 102 mg/dL 7-18 Serum or plasma creatinine measurement (mass/volume) 1.47 mg/dL 0.60-1.30 Serum or plasma urea nitrogen/creatinine mass ratio 69 NRG Serum or plasma creatinine measurement w ith calculation of estimated glomerular filtration rate 48 NRG Serum or plasma glucose measurement (mass/volume) 102 mg/dL 70-105 Serum or plasma calcium measurement (mass/volume) 7.7 mg/dL 8.5-10.1 Serum or plasma total bilirubin measurement (mass/volu me) 0.5 mg/dL 0.1-1.0 Serum or plasma alkaline phosphatase fauzia surement (enzymatic activity/volume) 80 U/L 40-136 Serum or plasma aspartate aminotransfera se measurement (enzymatic activity/volume) 22 U/L 5-34 Serum or plasma alanine aminotransferase measurement (enzymatic activity/volume) 29 U/L 0-55 Serum or plasma protein measurement (mass/volume) 5.8 g/dL 6.4-8.2 Serum or plasma albumin measurement (mass/volume) 3.1 g/dL 3.2-4.5 CALCIUM CORRECTED 8.4 mg/dL 8.5-10.1 Serum ragweed IgE antibody assay - 06/29 23:08 Serum ragweed IgE antibody assay 203 U/L 125-220 Serum or plasma C reactive protein measu rement (mass/volume) - 06/29/20 23:08 Serum or plasma C reactive protein measurement (mass/v olume) 0.65 mg/dL 0.00-0.50 PT panel in platelet poor plasma by coag ulation assay - 06/29/20 23:08 Prothrombin time (PT) in platelet poor plasma by coagu lation assay 15.1 s 12.2-14.7 INR in platelet poor plasma or blood by coagulation as say 1.1 0.8-1.4 Activated partial thromboplastin time (a PTT) in platelet poor plasma bycoagulation assay - 06/29/20 23:08 Activated partial thromboplastin time (a PTT) in platelet poor plasma bycoagulation assay 36 s 24-35 Bacterial blood culture - 06/29/20 23:17 Bacterial blood culture NG NR Blood lactic acid measurement (moles/vol ume) - 06/29/20 23:23 Blood lactic acid measurement (moles/volume) 2.00 mmol/L 0.50-2.00 Bacterial blood culture - 06/29/20 23:23 Bacterial blood culture NG [facility] [place] Complete urinalysis with reflex to cultu re - 06/29/20 23:35 Urine color determination YELLOW NRG Urine clarity determination CLEAR NR G Urine pH measurement by test strip 5.0 5-9 Specific gravity of urine by test strip 1.015 1.016-1.022 Urine protein assay by test strip, semi-quantitative NEGATIVE NEGATIVE Urine glucose detection by automated test strip NE GATIVE NEGATIVE Erythrocytes detection in urine sediment by light micr oscopy NEGATIVE NEGATIVE Urine ketones detection by automated test strip NE GATIVE NEGATIVE Urine nitrite detection by test strip NEGATIVE NEGATIVE Urine total bilirubin detection by test strip NEGA TIVE NEGATIVE Urine urobilinogen measurement by automated test strip (mass/volume) 0.2 mg/dL < = 1.0 Urine leukocyte esterase detection by dipstick NEG ATIVE NEGATIVE Automated urine sediment erythrocyte cou nt by microscopy (number/high power field) NONE NRG Automated urine sediment leukocyte count by microscopy (number/high power field) [HPF] NRG Bacteria detection in urine sediment by light microsco py TRACE NRG Squamous epithelial cells detection in u rine sediment by light microscopy 0-2 NRG Crystals detection in urine sediment by light microsco py NONE NRG Casts detection in urine sediment by light microscopy NONE NRG Mucus detection in urine sediment by light microscopy NEGATIVE NRG Complete urinalysis with reflex to culture CULTURE PENDING NRG Bacterial urine culture - 06/29/20 23:35 Bacterial urine culture 3 OR MORE NRG COLONY COUNT <10,000 NRG SUSCEPTIBILITY GRAM POSITIVE ISOLATES; SUGGESTING NRG MRSA SCREEN PROBABLE COLLECTION CONTAMINATION WITH NRG RAPID ID SKIN FARHAD. NO SUSCEPTIBILITY PERFORMED. NRG RED CELLS LEUKO REDUCED AS1 - 06/30/20 0 0:00 RED CELLS LEUKO REDUCED AS1 T RANSFUSED 07/01/20 [id number] NRG Blood type T Indirect antibody screen pa shaniec - 06/30/20 00:00 WRISTBAND NUMBER [id number] NRG ABO+Rh group AP NRG Blood group antibody screen NEGATIVE NR G Capillary blood glucose measurement by g lucometer (mass/volume) - 06/30/20 01:41 Capillary blood glucose measurement by glucometer (mas s/volume) 111 mg/dL 70-110 Methicillin resistant Staphylococcus aur eus (MRSA) screening culture - 06/30/20 02:55 Methicillin resistant Staphylococcus aureus (MRSA) scr eening culture NEG NRG Comprehensive metabolic panel - 06/30/20 05:35 Serum or plasma sodium measurement (moles/volume) 138 mmol/L 135-145 Serum or plasma potassium measurement (moles/volume) 5.8 mmol/L 3.6-5.0 Serum or plasma chloride measurement (moles/volume) 112 mmol/L 98-107 Carbon dioxide 20 mmol/L 21-32 Serum or plasma anion gap determination (moles/volume) 6 mmol/L 5-14 Serum or plasma urea nitrogen measurement (mass/volume ) 98 mg/dL 7-18 Serum or plasma creatinine measurement (mass/volume) 1.12 mg/dL 0.60-1.30 Serum or plasma urea nitrogen/creatinine mass ratio 88 NRG Serum or plasma creatinine measurement w ith calculation of estimated glomerular filtration rate > NRG Serum or plasma glucose measurement (mass/volume) 91 mg/dL 70-105 Serum or plasma calcium measurement (mass/volume) 7.5 mg/dL 8.5-10.1 Serum or plasma total bilirubin measurement (mass/volu me) 0.4 mg/dL 0.1-1.0 Serum or plasma alkaline phosphatase fauzia surement (enzymatic activity/volume) 76 U/L 40-136 Serum or plasma aspartate aminotransfera se measurement (enzymatic activity/volume) 18 U/L 5-34 Serum or plasma alanine aminotransferase measurement (enzymatic activity/volume) 25 U/L 0-55 Serum or plasma protein measurement (mass/volume) 5.1 g/dL 6.4-8.2 Serum or plasma albumin measurement (mass/volume) 2.9 g/dL 3.2-4.5 CALCIUM CORRECTED 8.4 mg/dL 8.5-10.1 Complete blood count (CBC) with automate d white blood cell (WBC) differential - 06/30/20 05:35 Blood leukocytes automated count (number/volume) 9.4 10*3/uL 4.3-11.0 Blood erythrocytes automated count (number/volume) 2.57 10*6/uL 4.35-5.85 Venous blood hemoglobin measurement (mass/volume) 8.7 g/dL 13.3-17.7 Blood hematocrit (volume fraction) 27 % 40-54 Automated erythrocyte mean corpuscular volume 105 [foz_us] 80-99 Automated erythrocyte mean corpuscular h emoglobin (mass per erythrocyte) 34 pg 25-34 Automated erythrocyte mean corpuscular h emoglobin concentration measurement (mass/volume) 32 g/dL 32-36 Automated erythrocyte distribution width ratio 13. 7 % 10.0- 14.5 Automated blood platelet count (count/volume) 140 10*3/uL 130-400 Automated blood platelet mean volume measurement 10.5 [foz_us] 7.4-10.4 Automated blood neutrophils/100 leukocytes 74 % 42-75 Automated blood lymphocytes/100 leukocytes 15 % 12-44 Blood monocytes/100 leukocytes 10 % 0-12 Automated blood eosinophils/100 leukocytes 1 % 0-10 Automated blood basophils/100 leukocytes 0 % 0-10 Blood neutrophils automated count (number/volume) 6.9 10*3 1.8-7.8 Blood lymphocytes automated count (number/volume) 1.4 10*3 1.0-4.0 Blood monocytes automated count (number/volume) 1. 0 10*3 0.0-1.0 Automated eosinophil count 0.1 10*3/uL 0 .0-0.3 Automated blood basophil count (count/volume) 0.0 10*3/uL 0.0-0.1 Serum or plasma phosphate measurement (m ass/volume) - 06/30/20 05:35 Serum or plasma phosphate measurement (mass/volume) 2.9 mg/dL 2.3-4.7 Magnesium - 06/30/20 05:35 Magnesium 2.4 mg/dL 1.6-2.4 Arterial blood gas measurement - 0 10:30 Blood pCO2 36 mm[Hg] 35-45 Blood pO2 92 mm[Hg] 79-93 Arterial blood bicarbonate measurement (moles/volume) 20 mmol/L 23-27 Arterial blood base excess by calculation -5.1 mmo l/L -2.5-2.5 Arterial blood oxygen saturation measurement 97 % 94-100 * Inhaled oxygen flow rate RA NRG Arterial blood pH measurement with patient temperature correction 7.35 7.37-7.43 Arterial blood carbon dioxide, total measurement (mole s/volume) 20.7 mmol/L 21.0-31.0 Body site LR NRG Assessment of wrist artery patency prior to arterial p uncture YES-POS NRG Setting of ventilation mode NO NR G Measurement of body temperature 36.4 NRG [facility] - 06/30/20 10:35 Venous blood hemoglobin measurement (mass/volume) 8.9 g/dL 13.3-17.7 Blood hematocrit (volume fraction) 27 % 40-54 [facility] - 06/30/20 12:35 Venous blood hemoglobin measurement (mass/volume) 8.7 g/dL 13.3-17.7 Blood hematocrit (volume fraction) 27 % 40-54 Whole blood basic metabolic panel - 01/18 12:35 Serum or plasma sodium measurement (moles/volume) 141 mmol/L 135-145 Serum or plasma potassium measurement (moles/volume) 4.7 mmol/L 3.6-5.0 Serum or plasma chloride measurement (moles/volume) 114 mmol/L 98-107 Carbon dioxide 18 mmol/L 21-32 Serum or plasma anion gap determination (moles/volume) 9 mmol/L 5-14 Serum or plasma urea nitrogen measurement (mass/volume ) 81 mg/dL 7-18 Serum or plasma creatinine measurement (mass/volume) 1.07 mg/dL 0.60-1.30 Serum or plasma urea nitrogen/creatinine mass ratio 76 NRG Serum or plasma creatinine measurement w ith calculation of estimated glomerular filtration rate > NRG Serum or plasma glucose measurement (mass/volume) 100 mg/dL 70-105 Serum or plasma calcium measurement (mass/volume) 7.8 mg/dL 8.5-10.1 Serum or plasma phosphate measurement (m ass/volume) - 06/30/20 12:35 Serum or plasma phosphate measurement (mass/volume) 4.0 mg/dL 2.3-4.7 Magnesium - 06/30/20 12:35 Magnesium 2.5 mg/dL 1.6-2.4 Whole blood hemoglobin and hematocrit [facility] 06/30/20 18:29 Venous blood hemoglobin measurement (mass/volume) 8.0 g/dL 13.3-17.7 Blood hematocrit (volume fraction) 25 % 40-54 Whole blood hemoglobin and hematocrit [facility] 07/01/20 00:39 Venous blood hemoglobin measurement (mass/volume) 7.6 g/dL 13.3-17.7 Blood hematocrit (volume fraction) 24 % 40-54 Complete blood count (CBC) with automate d white blood cell (WBC) differential - 07/01/20 05:30 Blood leukocytes automated count (number/volume) 7.4 10*3/uL 4.3-11.0 Blood erythrocytes automated count (number/volume) 2.12 10*6/uL 4.35-5.85 Venous blood hemoglobin measurement (mass/volume) 7.1 g/dL 13.3-17.7 Blood hematocrit (volume fraction) 22 % 40-54 Automated erythrocyte mean corpuscular volume 106 [foz_us] 80-99 Automated erythrocyte mean corpuscular h emoglobin (mass per erythrocyte) 33 pg 25-34 Automated erythrocyte mean corpuscular h emoglobin concentration measurement (mass/volume) 32 g/dL 32-36 Automated erythrocyte distribution width ratio 14. 1 % 10.0- 14.5 Automated blood platelet count (count/volume) 122 10*3/uL 130-400 Automated blood platelet mean volume measurement 9.7 [foz_us] 7.4-10.4 Automated blood neutrophils/100 leukocytes 78 % 42-75 Automated blood lymphocytes/100 leukocytes 11 % 12-44 Blood monocytes/100 leukocytes 8 % 0-12 Automated blood eosinophils/100 leukocytes 2 % 0-10 Automated blood basophils/100 leukocytes 0 % 0-10 Blood neutrophils automated count (number/volume) 5.8 10*3 1.8-7.8 Blood lymphocytes automated count (number/volume) 0.8 10*3 1.0-4.0 Blood monocytes automated count (number/volume) 0. 6 10*3 0.0-1.0 Automated eosinophil count 0.2 10*3/uL 0 .0-0.3 Automated blood basophil count (count/volume) 0.0 10*3/uL 0.0-0.1 Whole blood basic metabolic panel - 02/15 05:30 Serum or plasma sodium measurement (moles/volume) 142 mmol/L 135-145 Serum or plasma potassium measurement (moles/volume) 4.7 mmol/L 3.6-5.0 Serum or plasma chloride measurement (moles/volume) 115 mmol/L 98-107 Carbon dioxide 21 mmol/L 21-32 Serum or plasma anion gap determination (moles/volume) 6 mmol/L 5-14 Serum or plasma urea nitrogen measurement (mass/volume ) 40 mg/dL 7-18 Serum or plasma creatinine measurement (mass/volume) 0.78 mg/dL 0.60-1.30 Serum or plasma urea nitrogen/creatinine mass ratio 51 NRG Serum or plasma creatinine measurement w ith calculation of estimated glomerular filtration rate > NRG Serum or plasma glucose measurement (mass/volume) 100 mg/dL 70-105 Serum or plasma calcium measurement (mass/volume) 7.8 mg/dL 8.5-10.1 Serum or plasma phosphate measurement (m ass/volume) - 07/01/20 05:30 Serum or plasma phosphate measurement (mass/volume) 4.1 mg/dL 2.3-4.7 Magnesium - 07/01/20 05:30 Magnesium 2.4 mg/dL 1.6-2.4 Whole blood hemoglobin and hematocrit pa shanice - 07/01/20 16:53 Venous blood hemoglobin measurement (mass/volume) 8.1 g/dL 13.3-17.7 Blood hematocrit (volume fraction) 25 % 40-54 Complete blood count (CBC) with automate d white blood cell (WBC) differential - 07/02/20 03:35 Blood leukocytes automated count (number/volume) 8.0 10*3/uL 4.3-11.0 Blood erythrocytes automated count (number/volume) 2.49 10*6/uL 4.35-5.85 Venous blood hemoglobin measurement (mass/volume) 8.5 g/dL 13.3-17.7 Blood hematocrit (volume fraction) 26 % 40-54 Automated erythrocyte mean corpuscular volume 103 [foz_us] 80-99 Automated erythrocyte mean corpuscular h emoglobin (mass per erythrocyte) 34 pg 25-34 Automated erythrocyte mean corpuscular h emoglobin concentration measurement (mass/volume) 33 g/dL 32-36 Automated erythrocyte distribution width ratio 15. 9 % 10.0- 14.5 Automated blood platelet count (count/volume) 125 10*3/uL 130-400 Automated blood platelet mean volume measurement 10.2 [foz_us] 7.4-10.4 Automated blood neutrophils/100 leukocytes 77 % 42-75 Automated blood lymphocytes/100 leukocytes 11 % 12-44 Blood monocytes/100 leukocytes 8 % 0-12 Automated blood eosinophils/100 leukocytes 4 % 0-10 Automated blood basophils/100 leukocytes 0 % 0-10 Blood neutrophils automated count (number/volume) 6.1 10*3 1.8-7.8 Blood lymphocytes automated count (number/volume) 0.9 10*3 1.0-4.0 Blood monocytes automated count (number/volume) 0. 7 10*3 0.0-1.0 Automated eosinophil count 0.3 10*3/uL 0 .0-0.3 Automated blood basophil count (count/volume) 0.0 10*3/uL 0.0-0.1 Whole blood basic metabolic panel - 03/18 03:35 Serum or plasma sodium measurement (moles/volume) 138 mmol/L 135-145 Serum or plasma potassium measurement (moles/volume) 4.4 mmol/L 3.6-5.0 Serum or plasma chloride measurement (moles/volume) 108 mmol/L 98-107 Carbon dioxide 22 mmol/L 21-32 Serum or plasma anion gap determination (moles/volume) 8 mmol/L 5-14 Serum or plasma urea nitrogen measurement (mass/volume ) 13 mg/dL 7-18 Serum or plasma creatinine measurement (mass/volume) 0.71 mg/dL 0.60-1.30 Serum or plasma urea nitrogen/creatinine mass ratio 18 NRG Serum or plasma creatinine measurement w ith calculation of estimated glomerular filtration rate > NRG Serum or plasma glucose measurement (mass/volume) 115 mg/dL 70-105 Serum or plasma calcium measurement (mass/volume) 8.1 mg/dL 8.5-10.1 Serum or plasma phosphate measurement (m ass/volume) - 07/02/20 03:35 Serum or plasma phosphate measurement (mass/volume) 2.8 mg/dL 2.3-4.7 Magnesium - 07/02/20 03:35 Magnesium 2.2 mg/dL 1.6-2.4 Manual absolute plasma cell count - 03/18 03:35 Blood monocytes/100 leukocytes 8 % NRG Manual blood segmented neutrophils/100 leukocytes 76 % NRG Manual blood lymphocytes/100 leukocytes 10 % NRG Manual eosinophils/100 leukocytes in nose 5 % NRG Blood lymphocytes variant/100 leukocytes 1 % NRG Blood anisocytosis detection by light microscopy S LIGHT NRG Blood hypochromia detection by light microscopy SL IGHT NRG Blood microcytes detection by light microscopy SLI GHT NRG Blood rouleaux detection by light microscopy SLIGH T NRG Coronavirus SARS-CoV-2 SO 2018 - 0 12:55 Coronavirus Ab [Units/volume] in Serum NOT DETECTE D Not Detecte Complete blood count (CBC) with automate d white blood cell (WBC) differential - 07/03/20 04:40 Blood leukocytes automated count (number/volume) 9.4 10*3/uL 4.3-11.0 Blood erythrocytes automated count (number/volume) 2.37 10*6/uL 4.35-5.85 Venous blood hemoglobin measurement (mass/volume) 7.9 g/dL 13.3-17.7 Blood hematocrit (volume fraction) 24 % 40-54 Automated erythrocyte mean corpuscular volume 103 [foz_us] 80-99 Automated erythrocyte mean corpuscular h emoglobin (mass per erythrocyte) 33 pg 25-34 Automated erythrocyte mean corpuscular h emoglobin concentration measurement (mass/volume) 33 g/dL 32-36 Automated erythrocyte distribution width ratio 15. 5 % 10.0- 14.5 Automated blood platelet count (count/volume) 117 10*3/uL 130-400 Automated blood platelet mean volume measurement 10.3 [foz_us] 7.4-10.4 Automated blood neutrophils/100 leukocytes 80 % 42-75 Automated blood lymphocytes/100 leukocytes 9 % 12-44 Blood monocytes/100 leukocytes 10 % 0-12 Automated blood eosinophils/100 leukocytes 1 % 0-10 Automated blood basophils/100 leukocytes 0 % 0-10 Blood neutrophils automated count (number/volume) 7.5 10*3 1.8-7.8 Blood lymphocytes automated count (number/volume) 0.8 10*3 1.0-4.0 Blood monocytes automated count (number/volume) 1. 0 10*3 0.0-1.0 Automated eosinophil count 0.1 10*3/uL 0 .0-0.3 Automated blood basophil count (count/volume) 0.0 10*3/uL 0.0-0.1 Whole blood basic metabolic panel - 08/0 04/17 04:40 Serum or plasma sodium measurement (moles/volume) 136 mmol/L 135-145 Serum or plasma potassium measurement (moles/volume) 4.2 mmol/L 3.6-5.0 Serum or plasma chloride measurement (moles/volume) 103 mmol/L 98-107 Carbon dioxide 22 mmol/L 21-32 Serum or plasma anion gap determination (moles/volume) 11 mmol/L 5-14 Serum or plasma urea nitrogen measurement (mass/volume ) 5 mg/dL 7-18 Serum or plasma creatinine measurement (mass/volume) 0.68 mg/dL 0.60-1.30 Serum or plasma urea nitrogen/creatinine mass ratio 7 NRG Serum or plasma creatinine measurement w ith calculation of estimated glomerular filtration rate > NRG Serum or plasma glucose measurement (mass/volume) 107 mg/dL 70-105 Serum or plasma calcium measurement (mass/volume) 8.1 mg/dL 8.5-10.1 Encounters ACCT No. Visit Date/Time Discharge Status Pt. Type Provider Facility Loc./Unit Complaint [id number] 06/30/2020 01:08:00 13:45:00 DIS Outpatient JUJU CURIEL MD [facility] 4TH DEHYDRATION,ARF,HYPERKA LEMIA,MELENA [id number] 06/27/2020 12:56:00 23:59:59 CLS Outpatient ENOCH CARL FACCarolina, JOSE CARLOS GARCIA CC DS [facility] LAB I25.10,I50.22,J43.8,E78.49,I95.89,I44.69,G47.33 [id number] 06/27/2020 12:19:00 23:59:59 CLS Outpatient MINNIE ARNDT MD [facility] WOUNDCARE [id number] 06/19/2020 14:04:00 23:59:59 CLS Outpatient NICOLETTE RICHARDS MD [id number] 06/12/2020 12:42:00 23:59:59 CLS Outpatient MINNIE ARNDT MD [facility] [id number] 06/12/2020 12:18:00 23:59:59 CLS Outpatient COLT MARCOS [facility] LAB ACUTE RENAL INS UFFICIENCY [id number] 06/11/2020 07:19:00 23:59:59 CLS Outpatient ENOCH CARL FACC, JOSE CARLOS GARCIA CC DS [facility] CATH CHEST DISCOMFORT,CAD,COPD,HTN,HL,VIJI,SOB [id number] 06/11/2020 09:35:00 13:36:00 DIS Outpatient LISA PENA MD [facility] ER ABNORMAL LABS [id number] 06/10/2020 07:20:00 23:59:59 CLS Outpatient ENOCH CARL FACC, JOSE CARLOS GARCIA CC DS [facility] RAD CAROTID ART DISEASE,AAA [id number] 12/18/2019 08:00:00 23:59:59 CLS Outpatient ENOCH CARL FACC, JOSE CARLOS GARCIA CC DS [facility] RAD AAA,COPD,CAD,HTN,CHRONIC SYSTOLIC CHF [id number] 10/06/2019 08:45:00 23:59:59 CLS Preadmit MINNIE BELL MD [facility] RAD CA OF LARYNX [id number] 06/21/2019 15:04:00 23:59:59 CLS Outpatient LIZZ MEZA MD [facility] ONC [id number] 06/06/2019 12:33:00 17:48:00 DIS Inpatient SHANNAN WALKER MD [facility] 4TH ACUTE ON CHRONIC CHF EX ACERBATION [id number] 12/16/2018 14:11:00 00:01:00 DIS Outpatient LIZZ MEZA MD [facility] ONC [id number] 01/06/2019 16:43:00 20:49:00 DIS Emergency MERYL CLIFFORD [facility] ER COUGH,SOB,Hx COPD [id number] 12/13/2018 14:03:00 00:01:00 DIS Outpatient LIZZ MEZA MD [facility] ONC [id number] 10/05/2018 18:24:00 22:40:00 DIS Emergency ELVA GALAN DO Vi [facility] ER MOUTH BLEEDING;COPD [id number] 09/20/2018 11:03:00 23:59:59 CLS Outpatient MINNIE BELL MD [facility] RAD EPIGLOTTIC LESION [id number] 09/09/2018 07:35:00 11:25:00 DIS [facility] [id number] 09/05/2018 13:19:00 14:25:00 DIS Outpatient MINNIE BELL MD [facility] PREOP EPIGLOTIC LESION [id number] 08/25/2018 10:57:00 23:59:59 CLS Outpatient MINNIE BELL MD [facility] RAD LARYNGEAL ULCER [id number] 08/17/2018 14:33:00 018 23:59:59 CLS Outpatient SURINDER PATTON FLUME WORKER [facility] LAB Z79.891 [id number] 06/06/2018 13:00:00 23:59:59 CLS Preadmit ENOCH CARL FACC, JOSE CARLOS GARCIA CCDS [facility] PUL COPD [id number] 03/07/2018 14:25:00 00:01:00 DIS Outpatient ENOCH CARL FACCarolina, JOSE CARLOS GARCIA CC DS [facility] PULM COPD [id number] 04/26/2018 10:10:00 018 23:59:59 CLS Outpatient COLT MARCOS [facility] CATH CHEST DISCOMFOR T [id number] 01/17/2018 14:45:00 018 23:59:59 CLS Outpatient ROBERT ALCARAZ MD [facility] RAD COPD,COUGH,HYPOXIA [id number] 12/31/2017 11:45:00 018 23:59:59 CLS Preadmit CECE [place] FLUME WORKER [facility] RAD J43.8 COPD [id number] 12/27/2017 16:10:00 018 23:59:59 CLS Outpatient CECE [place] FLUME WORKER [facility] LAB J43.8 [id number] 12/27/2017 15:45:00 018 23:59:59 CLS Preadmit CECE [place] [employer]UME WORKER [facility] RT J43.8 COPD [id number] 12/21/2017 12:07:00 018 23:59:59 CLS Outpatient ENOCH CARL FACCarolina, JOSE CARLOS HENSONP CC DS [facility] CARD SOB,CAD [id number] 12/16/2017 13:32:00 018 23:59:59 CLS Outpatient ENOCH CARL FACC, JOSE CARLOS HENSONP CC DS [facility] CARD SOB,CAD [id number] 12/07/2017 14:34:00 018 23:59:59 CLS Outpatient ROBERT ALCARAZ MD [facility] RAD COPD,CHF [id number] 03/16/2017 09:49:00 017 16:30:00 DIS Outpatient WHIT MARCIAL DO [facility] RAD BACK PAIN [id number] 02/10/2017 09:59:00 017 23:59:59 CLS Outpatient ENOCH CARL FACC, JOSE CARLOS HENSONP CC DS [facility] RAD CAD,HTN,HLP ,ISCHEMIC CARDIOMYOPATHY [id number] 02/05/2017 13:45:00 017 23:59:59 CLS Outpatient TIMOTEO CHAPMAN MD [facility] RAD LOW BACK PAIN [id number] 01/01/2017 08:32:00 017 09:41:00 DIS Outpatient TIMOTEO CHAPMAN MD [facility] CARD DISC DISORDER,SACOROCOC CYGEAL DISORDER [id number] 12/24/2016 08:50:00 017 23:59:59 CLS Outpatient SURINDER PATTON APRN [facility] RAD ABNORMAL CHEST XRAY [id number] 12/22/2016 08:59:00 017 23:59:59 CLS Outpatient SURINDER PATTON APRN [facility] RAD SOB [id number] 12/21/2016 08:20:00 017 16:30:00 DIS Outpatient CARMELO DAVIS DO [facility] SLEEP COPD,CAD,FATIGUE [id number] 10/29/2016 07:47:00 016 23:59:59 CLS Outpatient ENOCH CARL FACC, ALI FACP CC DS [facility] CARD CAD,VIJI [id number] 10/27/2016 15:00:00 016 23:59:59 CLS Outpatient ENOCH CARL FACC, ALI FACP CC DS [facility] CARD SOB,CAD [id number] 10/21/2016 10:59:00 016 23:59:59 CLS Outpatient ROBERT ALCARAZ MD [facility] RAD DYSPNEA [id number] 08/20/2015 07:20:00 09:50:00 DIS Outpatient ENOCH CARL FACC, JOSE CARLOS FACP CC DS [facility] CATH [id number] 08/12/2015 12:32:00 13:57:00 DIS Outpatient TIMOTEO CHAPMAN MD [facility] CARD [id number] 08/07/2015 13:02:00 23:59:59 CLS Outpatient ROBERT ALCARAZ MD [facility] RT [id number] 05/09/2014 15:46:00 014 23:59:59 CLS Outpatient JOSE CARLOS KENDALL MD, FACC FACP CC DS [facility] LAB [id number] 10/16/2016 06:49:00 Document Registration [id number] 01/23/2015 10:03:00 Document Registration [id number] 10/14/2012 02:00:00 Document Registration [id number] 05/06/2012 15:54:00 Document Registration [id number] 05/05/2012 17:07:00 Document Registration [id number] 02/09/2012 05:40:00 Document Registration [id number] 02/08/2012 10:04:00 Document Registration
[2020-07-05 17:09] LABS: BASOPHILS % (AUTO) 0 % (0-10); EOSINOPHILS # (AUTO) 0.2 10^3/uL (0.0-0.3); EOSINOPHILS % (AUTO) 2 % (0-10); HEMATOCRIT 24 % (40-54); LYMPHOCYTES % (AUTO) 9 % (12-44); MEAN CORPUSCULAR HEMOGLOBIN 33 PG (25-34); MEAN CORPUSCULAR HGB CONC 33 G/DL (32-36); MEAN CORPUSCULAR VOLUME 101 FL (80-99); MEAN PLATELET VOLUME 10.8 FL (7.4-10.4); MONOCYTES # (AUTO) 1.2 X 10^3 (0.0-1.0); MONOCYTES % (AUTO) 11 % (0-12); NEUTROPHILS # (AUTO) 8.8 X 10^3 (1.8-7.8); NEUTROPHILS % (AUTO) 78 % (42-75); PLATELET COUNT 231 10^3/uL (130-400); RED CELL DISTRIBUTION WIDTH 15.8 % (10.0-14.5); WHITE BLOOD COUNT 11.2 10^3/uL (4.3-11.0)
[2020-07-05] MEDS ORDERED: NS IV 1000 ML 1,000 ML IV SCH ×3 (17:15→19:07)
[2020-07-05 17:29] LABS: ALANINE AMINOTRANSFERASE 44 U/L (0-55); ALBUMIN 3.1 GM/DL (3.2-4.5); ALKALINE PHOSPHATASE 88 U/L (40-136); BILIRUBIN,TOTAL 0.4 MG/DL (0.1-1.0); BUN/CREATININE RATIO 15; CALCIUM 7.9 MG/DL (8.5-10.1); CARBON DIOXIDE 17 MMOL/L (21-32); CHLORIDE 103 MMOL/L (98-107); CREATININE SERUM 1.18 MG/DL (0.60-1.30); GFR ESTIMATED > 60; GLUCOSE 112 MG/DL (70-105); MAGNESIUM 1.9 MG/DL (1.6-2.4); SODIUM 134 MMOL/L (135-145); TOTAL PROTEIN 6.5 GM/DL (6.4-8.2)
--- NOTE | 2020-07-05 17:30 | NUR ---
STOOD UP ON BEDSIDE WITHOUT PROBLEM TO TRY AND OBTAIN UA.
[2020-07-05 17:39] LABS: BILIRUBIN,URINE NEGATIVE (NEGATIVE); CLARITY,URINE CLOUDY; COLOR,URINE YELLOW; GLUCOSE, URINE (UA) NEGATIVE (NEGATIVE); KETONES,URINE NEGATIVE (NEGATIVE); LEUKOCYTE ESTERASE ,URINE 2+ (NEGATIVE); NITRITE,URINE POSITIVE (NEGATIVE); PROTEIN,URINE 1+ (NEGATIVE)
--- NOTE | 2020-07-05 17:41 | NUR ---
VODIED APX 10CC OF DARK URINE.
[2020-07-05 17:49] LABS: BACTERIA,URINE LARGE /HPF
--- NOTE | 2020-07-05 17:53 | NUR ---
TO ROOM PATIENT TALKING ON PHONE FLUIDS INFUSING.
[2020-07-05] MEDS ORDERED: cefTRIAXone FOR IV USE 1,000 MG in WATER (STERILE) FOR INJECTION 10 ML IV ONE (18:00)
--- NOTE | 2020-07-05 18:38 | NUR ---
PATIENT SITTING UP IN BED TAKING ON PHONE AND ASKING FOR FOOD.
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
[2020-07-05] MEDS ORDERED: PANTOPRAZOLE 40 MG (PROTONIX) VIAL IV ONE (18:45)
--- NOTE | 2020-07-05 18:47 | NUR ---
CALLED FOR A ROOM .
--- NOTE | 2020-07-05 19:39 | Diagnostic Imaging Report ---
INDICATION: Hypotension. Cardiac pacemaker. COMPARISON: 07/02/2020. EXAMINATION: Single view of the chest was obtained. FINDINGS: Cardiac enlargement with stable trace right-sided effusion. There is increasing central vascular congestion. There is no pneumothorax. The heart remains enlarged. Pacemaker is stable. IMPRESSION: 1. Stable trace right-sided effusion. 2. Cardiac enlargement with slightly increased central vascular congestion. Dictated by: Dictated on workstation # [id number]
[2020-07-05] MEDS ORDERED: ONDANSETRON 4 MG/2 ML (SDV) Z0FRAN IV PRN (20:30)
[2020-07-05] MEDS ORDERED: fentaNYL INJECTION 100 MCG/2 ML AMP IV PRN (20:30)
[2020-07-05] MEDS ORDERED: CATHETER FLUSH 10 ML SYR IV PRN (20:30)
--- NOTE | 2020-07-05 20:30 | NUR ---
WHIT MORENO JR admitted to room CU6-1, with an admitting diagnosis of HYPOTENSION,UTI on 07/05/20 from AM via , accompanied by .WHIT MORENO JR introduced to surroundings, call light, bed controls, phone, TV, temperature control, lights, meal times, smoking policy, visitor policy, side rail policy, bathrooms and showers. Patient Rights given to patient in the handbook. WHIT MORENO JR verbalizes understanding that [facility] is not responsible for the loss or damage to any personal effects or valuables that are kept in the patients posession during their hospitalization. The following Patient Care Plans were discussed with the : Discharge Planning, ,, and . WHIT MORENO JR verbalizes understanding of Interdisciplinary Patient Education. Patient and/or family were informed about the Rapid Response Team and its purpose.
[2020-07-05] MEDS: NS IV 1000 ML 1,000 ML IV SCH (21:00)
[2020-07-06] VITALS (14 sets, daily range): BP systolic 90–127; BP diastolic 38–70
[2020-07-06] MEDS: NS IV 1000 ML 1,000 ML IV SCH ×4 (02:34→22:39)
[2020-07-06 03:16] LABS: BASOPHILS % (AUTO) 0 % (0-10); EOSINOPHILS # (AUTO) 0.4 10^3/uL (0.0-0.3); EOSINOPHILS % (AUTO) 5 % (0-10); HEMATOCRIT 25 % (40-54); HEMOGLOBIN 7.9 G/DL (13.3-17.7); LYMPHOCYTES # (AUTO) 0.8 X 10^3 (1.0-4.0); LYMPHOCYTES % (AUTO) 10 % (12-44); MEAN CORPUSCULAR HEMOGLOBIN 33 PG (25-34); MEAN CORPUSCULAR HGB CONC 32 G/DL (32-36); MEAN CORPUSCULAR VOLUME 103 FL (80-99); MEAN PLATELET VOLUME 10.8 FL (7.4-10.4); MONOCYTES # (AUTO) 0.7 X 10^3 (0.0-1.0); MONOCYTES % (AUTO) 8 % (0-12); NEUTROPHILS # (AUTO) 6.2 X 10^3 (1.8-7.8); NEUTROPHILS % (AUTO) 76 % (42-75); PLATELET COUNT 200 10^3/uL (130-400); RED CELL DISTRIBUTION WIDTH 15.5 % (10.0-14.5); WHITE BLOOD COUNT 8.1 10^3/uL (4.3-11.0)
[2020-07-06 03:36] LABS: ALANINE AMINOTRANSFERASE 40 U/L (0-55); ALBUMIN 3.2 GM/DL (3.2-4.5); ALKALINE PHOSPHATASE 101 U/L (40-136); BILIRUBIN,TOTAL 0.5 MG/DL (0.1-1.0); BUN/CREATININE RATIO 17; CALCIUM 7.9 MG/DL (8.5-10.1); CARBON DIOXIDE 22 MMOL/L (21-32); CHLORIDE 108 MMOL/L (98-107); CREATININE SERUM 0.82 MG/DL (0.60-1.30); GFR ESTIMATED > 60; GLUCOSE 89 MG/DL (70-105); MAGNESIUM 1.9 MG/DL (1.6-2.4); PHOSPHORUS 3.4 MG/DL (2.3-4.7); POTASSIUM 4.4 MMOL/L (3.6-5.0); SODIUM 137 MMOL/L (135-145); TOTAL PROTEIN 6.4 GM/DL (6.4-8.2)
[2020-07-06] MEDS ORDERED: MAGNESIUM 1 GM/100 ML IVPB 100 ML IV SCH (06:00)
[2020-07-06] MEDS ORDERED: KCL 20 MEQ TAB (K-DUR) PO SCH (06:00)
[2020-07-06] MEDS ORDERED: POTASSIUM CL 10MEQ/50ML IVPB 50 ML IV SCH (06:00)
[2020-07-06] MEDS: PANTOPRAZOLE 40 MG (PROTONIX) VIAL IV SCH ×2 (07:38→20:13)
--- NOTE | 2020-07-06 07:52 | Diagnostic Imaging Report ---
EXAMINATION: Chest 1 view HISTORY: Urinary tract infection COMPARISON: 07/05/2020 FINDINGS: Right subclavian defibrillator is present. Heart is mildly enlarged. There are tiny pleural effusions. No pneumothorax. There is mild edema. IMPRESSION: 1. Mild edema and tiny pleural effusions. Dictated by: Dictated on workstation # [id number]
[2020-07-06] MEDS ORDERED: cefTRIAXone 1,000 MG/SWFI 10 ML IV PUSH IV SCH ×2 (09:00)
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
[2020-07-06] MEDS: TAMSULOSIN 0.4 MG (FLOMAX) CAP PO SCH (11:00)
--- NOTE | 2020-07-06 11:30 | NUR ---
PT TRANSFERRED FROM ICU TO ROOM 430. RECEIVED REPORT FROM TELEPHONE ORDER SUPERVISOR TRUPTI. PT NOW IN ROOM SITTING IN RECLINER WITH 4L O2.
--- NOTE | 2020-07-06 13:06 | History & Physical-Hospitalist ---
History of Present Illness HPI/Chief Complaint Osiel Hightower is a 64-year-old male with past medical history HTN, CAD, HLD, oxygen-dependent COPD on 3 L at home, who presented with dysuria and decreased urine output. He was recently admitted with GI bleeding due to an NSAID-induced gastric ulcer. He developed the symptoms shortly after returning home. He reports that he has a long history of dribbling urine and nocturia. He does not take any medications for his prostate. He has not had any hematochezia or melena. He has had the a couple small solid bowel movements. He denies any fevers or chills. He denies any shortness of breath or cough. He denies any chest pain. He denies any abdominal pain. He denies any nausea or vomiting. He has not been eating and drinking very well. He says that he is hungry now though. Source: patient Exam Limitations: no limitations Date Seen 07/06/20 Time Seen by a Provider: 09:45 Attending Physician Juju Curiel MD PCP Jean-Claude Lopez MD Referring Physician Date of Admission Jul 05, 2020 at 18:38 Home Medications & Allergies Home Medications Reviewed patient Home Medication Reconciliation performed by pharmacy medication reconciliations mechanical assembly technician and/or nursing. Patients Allergies have been reviewed. Allergies Allergies Coded Allergies quinine (Verified Allergy, Unknown, 06/06/19) Past Owaihnm-Hwexeo-Yvuaof Hx Past Med/Social Hx: Reviewed Nursing Past Med/Soc Hx Patient Social History Alcohol Use: Denies Use Recreational Drug Use: No Smoking Status: Former Smoker Former Smoker, Quit: Sep 02, 2018 Type Used: Cigarettes Recent Foreign Travel: No Contact w/other who traveled: No Recent Hopitalizations: No Recent Infectious Disease Expo: No Immunizations Up To Date Tetanus Booster (TDap): Unknown Pediatric: No Seasonal Allergies Seasonal Allergies: Yes Past Medical History Surgeries: Cardiac, Coronary Stent, Defibrillator, Orthopedic Respiratory: COPD, Sleep Apnea Currently Using CPAP: Yes Cardiac: Cardiomyopathy, Coronary Artery Disease, Heart Attack, Hypertension Neurological: Neuropathy Reproductive: No Genitourinary: Benign Prostatic Hyperpl, Renal Failure Musculoskeletal: Arthritis Did You Recieve Any Treatments: No History of Blood Disorders: No Family History No Pertinent Family Hx Review of Systems Constitutional: no symptoms reported EENTM: no symptoms reported Respiratory: no symptoms reported Cardiovascular: no symptoms reported Gastrointestinal: no symptoms reported Genitourinary: decreased output, dysuria Musculoskeletal: no symptoms reported Skin: no symptoms reported Psychiatric/Neurological: No Symptoms Reported Physical Exam Physical Exam Vital Signs Vital Signs - First Documented 07/05/20 07/05/20 16:49 18:31 Temp 36.8 Pulse 82 Resp 18 B/P (MAP) 109/58 (75) Pulse Ox 97 O2 Delivery Nasal Cannula O2 Flow Rate 3.00 Capillary Refill : Less Than 3 Seconds Height, Weight, BMI Height: 6'0.00" Weight: 295lbs. 14.4oz. [id number]; 37.10 BMI Method:Stated General Appearance: No Apparent Distress, Obese HEENT: PERRL/EOMI, Pharynx Normal Neck: Normal Inspection, Supple Respiratory: Lungs Clear, Normal Breath Sounds, No Respiratory Distress Cardiovascular: Regular Rate, Rhythm, No Edema, No Murmur Gastrointestinal: Normal Bowel Sounds, Non Tender, Soft Back: No CVA Tenderness Extremity: Normal Inspection, Non Tender, Pedal Edema (3+) Neurologic/Psychiatric: Alert, Oriented x3, No Motor/Sensory Deficits, Normal Mood/Affect Skin: Normal Color, Warm/Dry Results Results/Procedures Labs Laboratory Tests 07/05/20 17:01 07/06/20 02:54 Patient resulted labs reviewed. Imaging: Reviewed Imaging Report Assessment/Plan Admission Diagnosis Urinary tract infection Admission Status: Inpatient Order (span 2 midnights) Reason for Inpatient Admission: Hypotension Assessment and Plan Urinary tract infection UA consistent with UTI Urine culture growing gram-negative rods Await final ID and susceptibilities Continue Rocephin Hypotension BP improved this morning Likely due to dehydration and antihypertensives Hold home antihypertensives Continue IV fluids NSAID-induced gastric ulcer Acute blood loss anemia Hemoglobin stable at 8 No evidence of ongoing bleeding Gen. surgery consulted, appreciate assistance Avoid NSAIDs Continue PPI DVT prophylaxis: Lovenox Diagnosis/Problems Diagnosis/Problems (1) Urinary tract infection Status: Acute Qualifiers: Urinary tract infection type: site unspecified Hematuria presence: with hematuria Qualified Codes: N39.0 - Urinary tract infection, site not specified; R31.9 - Hematuria, unspecified (2) Hypotension Status: Acute Qualifiers: Hypotension type: unspecified hypotension type Qualified Codes: I95.9 - Hypotension, unspecified (3) NSAID-induced gastric ulcer Status: Acute (4) Acute blood loss anemia Status: Acute Clinical Quality Measures DVT/VTE Risk/Contraindication: Risk Factor Score Per Nursin RFS Level Per Nursing on Admit: 4+=Very High Contraindications-Pharm: Other *list below* Contraindications-Mechi: Other *list below* Other: PT HAS HGB OF 8 WITH HISTORY OF BLEEDING ULCER AND POSSIBLE SCOPE IN THE AM JUJU CURIEL MD Jul 06, 2020 13:06
[2020-07-06] MEDS ORDERED: ONDANSETRON 4 MG (ZOFRAN) ORAL DISSOLVE TAB PO PRN (13:15)
[2020-07-06] MEDS ORDERED: diphenhydrAMINE 25 MG TAB (BENADRYL) PO PRN (13:15)
[2020-07-06] MEDS ORDERED: MELATONIN 3 MG TABLET PO PRN (13:15)
[2020-07-06] MEDS ORDERED: BISACODYL 10 MG SUPP (DULCOLAX) PR PRN (13:15)
[2020-07-06] MEDS ORDERED: ONDANSETRON 4 MG/2 ML (SDV) Z0FRAN IV PRN (13:15)
[2020-07-06] MEDS ORDERED: polyethylene glycoL POWDER 17 GM (MIRALAX) PACK PO PRN (13:15)
[2020-07-06] MEDS ORDERED: ANTACID SUSP 30 ML UDC (MYLANTA) PO PRN (13:15)
[2020-07-06] MEDS: cefTRIAXone FOR IV USE 2,000 MG in WATER (STERILE) FOR INJECTION 20 ML IV SCH (13:56)
[2020-07-06] MEDS: ENOXAPARIN 40 MG/0.4 ML (LOVENOX) SYR SC SCH (14:01)
--- NOTE | 2020-07-06 15:45 | NUR ---
pt and sister asked nurse when he could have a regular diet. Pt was very upset about clear liquid diet and that he would not be able to have a bowel movement unless he ate. Dr Hammer notified and said that regular diet was ok with him.
[2020-07-06] MEDS: SUCRALFATE 1 GM (CARAFATE) TAB PO SCH ×2 (18:09→20:13)
[2020-07-06] MEDS: SENNOSIDES 8.6 MG (SENOKOT) TAB PO SCH (20:13)
[2020-07-06] MEDS: DOCUSATE SODIUM 100 MG (COLACE) CAP PO SCH (20:13)
[2020-07-07] VITALS: BP 113/57
[2020-07-07] MEDS: ACETAMINOPHEN 325 MG TABLET PO PRN ×3 (03:09→16:10)
[2020-07-07 04:00] VITALS: BP 120/72
[2020-07-07 05:27] LABS: BASOPHILS % (AUTO) 0 % (0-10); EOSINOPHILS # (AUTO) 0.1 10^3/uL (0.0-0.3); EOSINOPHILS % (AUTO) 1 % (0-10); HEMATOCRIT 25 % (40-54); HEMOGLOBIN 7.8 G/DL (13.3-17.7); LYMPHOCYTES # (AUTO) 0.7 X 10^3 (1.0-4.0); LYMPHOCYTES % (AUTO) 9 % (12-44); MEAN CORPUSCULAR HEMOGLOBIN 32 PG (25-34); MEAN CORPUSCULAR HGB CONC 31 G/DL (32-36); MEAN CORPUSCULAR VOLUME 103 FL (80-99); MEAN PLATELET VOLUME 10.3 FL (7.4-10.4); MONOCYTES # (AUTO) 0.7 X 10^3 (0.0-1.0); MONOCYTES % (AUTO) 9 % (0-12); NEUTROPHILS # (AUTO) 6.1 X 10^3 (1.8-7.8); NEUTROPHILS % (AUTO) 81 % (42-75); PLATELET COUNT 193 10^3/uL (130-400); RED CELL DISTRIBUTION WIDTH 15.6 % (10.0-14.5); WHITE BLOOD COUNT 7.5 10^3/uL (4.3-11.0)
[2020-07-07 05:48] LABS: BUN/CREATININE RATIO 12; CALCIUM 7.8 MG/DL (8.5-10.1); CARBON DIOXIDE 20 MMOL/L (21-32); CHLORIDE 111 MMOL/L (98-107); CREATININE SERUM 0.69 MG/DL (0.60-1.30); GFR ESTIMATED > 60; GLUCOSE 103 MG/DL (70-105); MAGNESIUM 1.8 MG/DL (1.6-2.4); POTASSIUM 4.2 MMOL/L (3.6-5.0); SODIUM 137 MMOL/L (135-145)
[2020-07-07] MEDS: NS IV 1000 ML 1,000 ML IV SCH (06:25)
[2020-07-07] MEDS: SUCRALFATE 1 GM (CARAFATE) TAB PO SCH ×4 (06:26→20:52)
--- NOTE | 2020-07-07 07:34 | NUR ---
DR. CURIEL NOTIFIED ABOUT PT FEELING FULL OF FLUID. NEW ORDERS RECEIVED TO D/C IV FLUIDS.
[2020-07-07 08:00] VITALS: BP 137/86
--- NOTE | 2020-07-07 08:14 | Progress Note - Surgery ---
KINDRARICARDO MED STUDENT 07/07/20 0814: Subjective Date Seen by a Provider: Jul 07, 2020 Time Seen by a Provider: 07:45 Subjective/Events-last exam Pt states urinary symptoms have improved but feels they have not returned to normal yet. Has been tolerating liquids well. Hypotension resolved when HTN meds were discontinued. History of COPD and chronic back pain has kept him from increasing activity. Focused Exam Lactate Level 07/05/20 18:09: Lactic Acid Level 1.91 Time of Focused Exam: 19:05 Objective Exam Vital Signs Date Time Temp Pulse Resp B/P (MAP) Pulse Ox O2 Delivery O2 Flow Rate FiO2 07/07/20 07:00 71 07/07/20 04:00 36.9 73 21 120/72 (88) 91 Nasal Cannula 3.00 07/07/20 01:00 83 07/07/20 00:00 37.2 87 21 113/57 (75) 90 Nasal Cannula 3.00 07/06/20 20:15 95 Nasal Cannula 4.00 07/06/20 19:42 36.1 67 20 90/56 (67) 95 Nasal Cannula 3.00 07/06/20 19:00 97 07/06/20 15:30 36.5 79 22 116/70 (85) 91 Nasal Cannula 4.00 07/06/20 14:29 2.00 07/06/20 12:38 75 07/06/20 12:00 36.2 65 20 93/38 (56) 96 OxyMask 4.00 07/06/20 10:00 98 23 103/47 (65) 98 OxyMask 4.00 07/06/20 09:00 56 15 112/53 (72) 94 OxyMask 4.00 I & O 07/07/20 07:00 Intake Total 3030 ml Output Total 2450 ml Balance 580 ml Capillary Refill : Less Than 3 Seconds General Appearance: No Apparent Distress, WD/WN, Obese HEENT: PERRL/EOMI, Pharynx Normal Neck: Normal Inspection, Supple Respiratory: Normal Breath Sounds, No Respiratory Distress Cardiovascular: Regular Rate, Rhythm, No Edema, No Murmur Peripheral Pulses: 2+ Radial Pulses (R) Gastrointestinal: non tender, soft, no organomegaly Extremity: Normal Inspection, Non Tender, Pedal Edema (3+) Neurologic/Psychiatric: Alert, Oriented x3, No Motor/Sensory Deficits, Normal Mood/Affect Skin: Normal Color, Warm/Dry Lymphatic: No Adenopathy Results Lab Laboratory Tests 07/07/20 05:15: White Blood Count 7.5, Red Blood Count 2.44L, Hemoglobin 7.8L, Hematocrit 25L, Mean Corpuscular Volume 103H, Mean Corpuscular Hemoglobin 32, Mean Corpuscular Hemoglobin Concent 31L, Red Cell Distribution Width 15.6H, Platelet Count 193, Mean Platelet Volume 10.3, Neutrophils (%) (Auto) 81H, Lymphocytes (%) (Auto) 9L , Monocytes (%) (Auto) 9, Eosinophils (%) (Auto) 1, Basophils (%) (Auto) 0, Neutrophils # (Auto) 6.1, Lymphocytes # (Auto) 0.7L, Monocytes # (Auto) 0.7, Eosinophils # (Auto) 0.1, Basophils # (Auto) 0.0, Sodium Level 137, Potassium Level 4.2, Chloride Level 111H, Carbon Dioxide Level 20L, Anion Gap 6, Blood Urea Nitrogen 8, Creatinine 0.69, Estimat Glomerular Filtration Rate > 60, BUN/Creatinine Ratio 12, Glucose Level 103, Calcium Level 7.8L, Phosphorus Level 3.0, Magnesium Level 1.8 Microbiology 07/05/20 MRSA Screen - Final, Complete MRSA not isolated 07/05/20 Blood Culture - Preliminary, Resulted No growth 07/05/20 Urine Culture - Preliminary, Resulted Gram Negative Jose Assessment/Plan Assessment/Plan Assessment/Plan anemia secondary to gi bleed, recent gastric ulcer UTI Hypotension blood pressure improved hgb stable will start on clears Protonix/carafate repeat labs in am Clinical Quality Measures DVT/VTE Risk/Contraindication: Risk Factor Score Per Nursin RFS Level Per Nursing on Admit: 4+=Very High Contraindications-Pharm: Other *list below* Contraindications-Mechi: Other *list below* Other: PT HAS HGB OF 8 WITH HISTORY OF BLEEDING ULCER AND POSSIBLE SCOPE IN THE AM STEPHAN ROBERTSON DO 07/07/20 1132: Subjective Subjective/Events-last exam On regular diet. Hgb stable. Breathing about the same. No abdominal pain. No new complaints. Denies n/v fever sweats chills or chest pain Objective Exam General Appearance: No Apparent Distress, WD/WN, Obese HEENT: PERRL/EOMI, Normal ENT Inspection Neck: Normal Inspection, Supple Respiratory: Chest Non Tender, No Accessory Muscle Use, No Respiratory Distress Cardiovascular: Regular Rate, Rhythm, No Edema Gastrointestinal: non tender, soft, no organomegaly Extremity: Normal Inspection, Non Tender, Pedal Edema (3+) Neurologic/Psychiatric: Alert, Oriented x3, No Motor/Sensory Deficits, Normal Mood/Affect Skin: Normal Color, Warm/Dry Lymphatic: No Adenopathy Assessment/Plan Assessment/Plan Assessment/Plan anemia secondary to gi bleed, recent gastric ulcer UTI Hypotension-resolved diet as tolerates hgb stable follow labs no surgical intervention will follow Supervisory-Addendum Brief Verification & Attestation Participated in pt care: history, MDM, physical Personally performed: exam, history, MDM, supervision of care Care discussed with: Medical Student Procedures: n/a Results interpretation: Verified all documentation Verification and Attestation of Medical Student E/M Service A medical student performed and documented this service in my presence. I reviewed and verified all information documented by the medical student and made modifications to such information, when appropriate. I personally performed the physical exam and medical decision making. Stephan Robertson, Jul 07, 2020,11:34 RICARDO ARGUELLES MED STUDENT Jul 07, 2020 08:14 STEPHAN ROBERTSON DO Jul 07, 2020 11:32
[2020-07-07] MEDS: DOCUSATE SODIUM 100 MG (COLACE) CAP PO SCH ×2 (08:25→20:52)
[2020-07-07] MEDS: CLOPIDOGREL 75 MG (PLAVIX) TABLET PO SCH (08:25)
[2020-07-07] MEDS: PANTOPRAZOLE 40 MG (PROTONIX) VIAL IV SCH ×2 (08:25→20:52)
[2020-07-07] MEDS: SENNOSIDES 8.6 MG (SENOKOT) TAB PO SCH ×2 (08:25→20:52)
[2020-07-07] MEDS ORDERED: FUROSEMIDE 40 MG (LASIX) TAB PO ONE (08:45)
--- NOTE | 2020-07-07 09:28 | NUR ---
DR. KENDALL NOTIFIED OF CONSULT. HE HAD ALREADY SPOKEN TO DR. CURIEL
[2020-07-07] MEDS: lisINopril 5 MG (PRINIVIL) TABLET PO SCH (09:34)
--- NOTE | 2020-07-07 11:17 | NUR ---
provided prayer and Communion.
[2020-07-07 12:00] VITALS: BP 122/61
--- NOTE | 2020-07-07 12:27 | Progress Note - Hospitalist ---
Subjective HPI/CC On Admission Date Seen by Provider: Jul 07, 2020 Time Seen by Provider: 10:20 Osiel Hightower is a 64-year-old male with past medical history HTN, CAD, HLD, oxygen-dependent COPD on 3 L at home, who presented with dysuria and decreased urine output. He was recently admitted with GI bleeding due to an NSAID-induced gastric ulcer. He developed the symptoms shortly after returning home. He reports that he has a long history of dribbling urine and nocturia. He does not take any medications for his prostate. He has not had any hematochezia or melena. He has had the a couple small solid bowel movements. He denies any fevers or chills. He denies any shortness of breath or cough. He denies any chest pain. He denies any abdominal pain. He denies any nausea or vomiting. He has not been eating and drinking very well. He says that he is hungry now though. Subjective/Events-last exam He is feeling better today. He has been constipated. His legs are feeling swollen. He denies any fevers or chills. He denies any chest pain or shortness of breath. He denies any nausea or vomiting. He is not having any abdominal pain. Focused Exam Lactate Level 07/05/20 18:09: Lactic Acid Level 1.91 Time of Focused Exam: 19:05 Objective Exam Vital Signs Vital Signs Date Time Temp Pulse Resp B/P (MAP) Pulse Ox O2 Delivery O2 Flow Rate FiO2 07/07/20 08:50 91 Nasal Cannula 4.00 07/07/20 08:00 36.2 78 20 137/86 (103) Capillary Refill : Less Than 3 SecondsLess Than 3 Seconds General Appearance: No Apparent Distress, Chronically ill, Obese Respiratory: Lungs Clear, No Respiratory Distress, Decreased Breath Sounds, Oth er (Wearing nasal cannula) Cardiovascular: Regular Rate, Rhythm, No Murmur Gastrointestinal: Normal Bowel Sounds, Non Tender, Soft Extremity: Non Tender, Pedal Edema, Swelling Neurologic/Psychiatric: Alert, Oriented x3, No Motor/Sensory Deficits, Normal Mood/Affect Skin: Normal Color, Warm/Dry Results/Procedures Lab Laboratory Tests 07/07/20 05:15 Patient resulted labs reviewed. Imaging: Reviewed Imaging Report Assessment/Plan Assessment and Plan Assess & Plan/Chief Complaint Urinary tract infection UA consistent with UTI Urine culture growing Morgandebra cochrannii Await susceptibilities Continue Rocephin Hypotension Chronic heart failure with reduced ejection fraction Hypertension BP improved Likely due to dehydration and antihypertensives Transition Coreg to metoprolol Decreased dose of lisinopril Resume Lasix Consult cardiology, appreciate assistance NSAID-induced gastric ulcer Acute blood loss anemia Hemoglobin stable at 8 No evidence of ongoing bleeding Gen. surgery consulted, appreciate assistance Avoid NSAIDs Continue PPI DVT prophylaxis: Lovenox Diagnosis/Problems Diagnosis/Problems (1) Urinary tract infection Status: Acute Qualifiers: Urinary tract infection type: site unspecified Hematuria presence: with hematuria Qualified Codes: N39.0 - Urinary tract infection, site not specified; R31.9 - Hematuria, unspecified (2) Hypotension Status: Acute Qualifiers: Hypotension type: unspecified hypotension type Qualified Codes: I95.9 - Hypotension, unspecified (3) NSAID-induced gastric ulcer Status: Acute (4) Acute blood loss anemia Status: Acute (5) Chronic systolic CHF (congestive heart failure) Status: Chronic Clinical Quality Measures DVT/VTE Risk/Contraindication: Risk Factor Score Per Nursin RFS Level Per Nursing on Admit: 4+=Very High Contraindications-Pharm: Other *list below* Contraindications-Mechi: Other *list below* Other: PT HAS HGB OF 8 WITH HISTORY OF BLEEDING ULCER AND POSSIBLE SCOPE IN THE AM JUJU CURIEL MD Jul 07, 2020 12:27
[2020-07-07] MEDS: cefTRIAXone FOR IV USE 2,000 MG in WATER (STERILE) FOR INJECTION 20 ML IV SCH (13:22)
[2020-07-07] MEDS: ENOXAPARIN 40 MG/0.4 ML (LOVENOX) SYR SC SCH (13:22)
[2020-07-07 15:30] VITALS: BP 129/69
--- NOTE | 2020-07-07 15:59 | Consultation-Cardiology ---
HPI-Cardiology Cardiology Consultation: Date of Consultation 07/07/20 Time Seen by a Provider: 14:00 Date of Admission Attending Physician Juju Curiel MD Admitting Physician Jean-Claude Lopez MD Consulting Physician JOSE CARLOS KENDALL MD, MA, FACP, FACC, FSCAI, CCDS HPI: Chief Complaint: Reason for Cardiology consultation: Hypotension, h/o CV disease HPI 64 yo man hospitalized a few days before this admission for GI bleed and volume depletion. He states that endoscopy indicated that bleeding had stopped on its own. Had a Martin at the time of this admission. A couple of days after d/c from that admission had to be readmitted for dysuria, low urine output and gen weakness and malaise. Does not report cp. Has chronic, exertional shortness of breath. Denies focal weakness. Has chronic leg swelling, worse lately. Denies palp or syncope. Has had intermittent nausea. Does not report recent vomiting or diarrhea Review of Systems-Cardiology Review of Systems Constitutional: As described under HPI Eyes: No vision change Ears/Nose/Throat: chronic hearing loss; No ear discharge, No nasal drainage, No recent hearing loss Respiratory: As described under HPI Cardiovascular: As described under HPI Gastrointestinal: As described under HPI Genitourinary: As described under HPI Musculoskeletal: back pain (chroni) Skin: No rash, No ulcerations Psychiatric/Neurological: No focal weakness, No syncope Hematologic: No bleeding abnormalities All Other Systems Reviewed Negative Unless Noted: Yes (Negative excepted noted.) PJV-Bvoawo-Znayow Hx Patient Social History Alcohol Use: Denies Use Recreational Drug Use: No Smoking Status: Former Smoker Type Used: Cigarettes Recent Foreign Travel: No Recent Infectious Disease Expo: No Hospitalization with Isolation: Denies Immunizations Up To Date Tetanus Booster (TDap): Unknown Past Medical History PMH As described under Assessment. Family Medical History Family Medical History: He does not report fam h/o early CAD or SCD Allergies and Home Medications Allergies Coded Allergies: quinine (Verified Allergy, Unknown, 06/06/19) Home Medications Carvedilol 25 Mg Tab, 12.5 MG PO BID, (Reported) TAKES OF A 25MG TAB Clopidogrel Bisulfate 75 Mg Tablet, 75 MG PO DAILY, (Reported) Lisinopril 40 Mg Tablet, 40 MG PO DAILY, (Reported) Oxycodone HCl/Acetaminophen 1 Each Tablet, 1 TAB PO Q6H PRN for PAIN-MODERATE, (Reported) Pantoprazole Sodium 40 Mg Tablet.dr, 40 MG PO BID Take twice daily for 8 weeks, then once daily Prescribed by: JUJU CURIEL on 07/03/20 1110 Tramadol HCl 50 Mg Tablet, 50 MG PO TID PRN for PAIN-MODERATE, (Reported) Patient Home Medication List Home Medication List Reviewed: Yes Physical Exam-Cardiology Physical Exam Vital Signs/I&O 07/07/20 07/07/20 07/07/20 07/07/20 04:00 07:00 08:00 08:50 Temp 36.9 36.2 Pulse 73 71 78 Resp 21 20 B/P (MAP) 120/72 (88) 137/86 (103) Pulse Ox 91 90 91 O2 Delivery Nasal Cannula Nasal Cannula Nasal Cannula O2 Flow Rate 3.00 3.00 4.00 07/07/20 07/07/20 12:00 12:59 Temp 36.5 Pulse 57 102 Resp 20 B/P (MAP) 122/61 (81) Pulse Ox 96 O2 Delivery Nasal Cannula O2 Flow Rate 3.00 07/07/20 00:00 Intake Total 1680 ml Output Total 1100 ml Balance 580 ml Capillary Refill : Less Than 3 SecondsLess Than 3 Seconds Constitutional: AAO x 3, well-developed, well-nourished HEENT: EOMI, hard of hearing; No xanthelasmas are seen Neck: carotid pulses are 2 + bilaterally, with good upstrokes Respiratory: No accessory muscle use; other (Fair, bilat air entry; prolonged exp; diminished air entry at bases; coarse basal crackles) Cardiovascular: regular rate-rhythm, S1 and S2, systolic murmur (soft ROBERTO at card base) Gastrointestinal: No tender; soft; No guarding, No rebound; audible bowel sounds Extremities: No clubbing, No cyanosis; significant edema (bilat, mod to mod sev, pitting edema o fthe legs) Neurologic/Psychiatric: other (moves all limbs equally) Skin: normal color, warm/dry Data Review Labs Laboratory Tests 07/07/20 05:15: White Blood Count 7.5, Red Blood Count 2.44L, Hemoglobin 7.8L, Hematocrit 25L, Mean Corpuscular Volume 103H, Mean Corpuscular Hemoglobin 32, Mean Corpuscular Hemoglobin Concent 31L, Red Cell Distribution Width 15.6H, Platelet Count 193, Mean Platelet Volume 10.3, Neutrophils (%) (Auto) 81H, Lymphocytes (%) (Auto) 9L , Monocytes (%) (Auto) 9, Eosinophils (%) (Auto) 1, Basophils (%) (Auto) 0, Neutrophils # (Auto) 6.1, Lymphocytes # (Auto) 0.7L, Monocytes # (Auto) 0.7, Eosinophils # (Auto) 0.1, Basophils # (Auto) 0.0, Sodium Level 137, Potassium Level 4.2, Chloride Level 111H, Carbon Dioxide Level 20L, Anion Gap 6, Blood Urea Nitrogen 8, Creatinine 0.69, Estimat Glomerular Filtration Rate > 60, BUN/Creatinine Ratio 12, Glucose Level 103, Calcium Level 7.8L, Phosphorus Level 3.0, Magnesium Level 1.8 Microbiology 07/05/20 MRSA Screen - Final, Complete MRSA not isolated 07/05/20 Blood Culture - Preliminary, Resulted No growth 07/05/20 Urine Culture - Final, Complete Morganella morganii Laboratory Tests 07/05/20 17:01 07/06/20 02:54 07/07/20 05:15 A/P-Cardiology Assessment/Admission Diagnosis Hypotension, likely medication-induced Recent (May 2020) renal failure, likely due to vol depletion due to diuretics and GI bleed Severe anemia due to slow GI bleed. Endoscopy by Dr Blackwell on 07/02/20: Reflux esophagitis stage II, small to moderate size hiatal hernia approximately 2 cm in size, moderate gastritis with prepyloric type 3 gastric ulcer with an overlying fibrin clot, less than 1 cm in size. No active bleeding. Chronic stage II external and internal hemorrhoids Chronic systolic CHF due to ischemic cardiomyopathy, improved after adjustments of meds in late Nov 2016 Chronic obstructive pulmonary disease due to tobaccoism, followed by Dr Steele. Has intermittent hypoxia for which he is on prn oxygen Obesity with obesity-hypoventilation syndrome. Sleep studies of 12/21/16: nocturnal hypoxemia, primary snoring without VIJI, paroxysmal narrow complex tachycardia S/p removal of L-sided ICD and associated leads for device pocket infection in Dec 2013. He now has new leads and a new R-sided device that was placed in Dec 2013, functioning normally per interrogation of 06-05-20 Coronary artery disease artery disease. Last cath was on 04/26/18. It showed severe prox disease of LAD that was stented with Alp Xience 4x15. In the mid LAD there were patent overlapping stents (Vacuum Cleaner Assembler [id number] Vacuum Cleaner Assembler 3x24) and the 1st OM of LCX had a patent stent (Promus James 3.5x12). The RCA was dominant with mild plaques. LVEF was 40% there was anteroapical hypokinesis and mild elev of LVEDP MPI of 12/21/17: anteroapical infarction with minimal raheem-infarct ischemia; anteroapical akinesis/dyskinesis and LVEF 39%, significant cardiomegaly Echo of 06/06/19: LVEF 35-40%, mod enlarged LA, RVSP 40 mmHg Abnormal ECG on 12/08/16: NSR with LBBB. ECG of 06/05/20 essentially unchanged Hyperlipidemia, being treated with statin therapy. Degenerative joint disease and lumbago. 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 S/p all teeth removal in Sep 2018 Segmental pressures of June 12, 2020 showed no evidence of PAD Discussion and Recomendations * Reduce bb and EZEQUIEL-inhib * Continue diuretic * Monitor labs * I discussed his CV issues and our current treatment plan with him in detail, and answered questions Clinical Quality Measures DVT/VTE Risk/Contraindication: Risk Factor Score Per Nursin RFS Level Per Nursing on Admit: 4+=Very High Contraindications-Pharm: Other *list below* Contraindications-Mechi: Other *list below* Other: PT HAS HGB OF 8 WITH HISTORY OF BLEEDING ULCER AND POSSIBLE SCOPE IN THE AM JOSE CARLOS KENDALL MD FACP FAC CCDS Jul 07, 2020 15:58
[2020-07-07] MEDS: FUROSEMIDE 40 MG (LASIX) TAB PO SCH (17:23)
[2020-07-07] MEDS: TAMSULOSIN 0.4 MG (FLOMAX) CAP PO SCH (17:23)
[2020-07-07 20:47] VITALS: BP 104/55
[2020-07-08] VITALS: BP 104/55
[2020-07-08 04:00] VITALS: BP 122/69
[2020-07-08 05:19] LABS: BASOPHILS % (AUTO) 0 % (0-10); EOSINOPHILS # (AUTO) 0.2 10^3/uL (0.0-0.3); EOSINOPHILS % (AUTO) 3 % (0-10); HEMATOCRIT 24 % (40-54); HEMOGLOBIN 7.6 G/DL (13.3-17.7); LYMPHOCYTES # (AUTO) 0.7 X 10^3 (1.0-4.0); LYMPHOCYTES % (AUTO) 12 % (12-44); MEAN CORPUSCULAR HEMOGLOBIN 32 PG (25-34); MEAN CORPUSCULAR HGB CONC 31 G/DL (32-36); MEAN CORPUSCULAR VOLUME 103 FL (80-99); MEAN PLATELET VOLUME 10.4 FL (7.4-10.4); MONOCYTES # (AUTO) 0.7 X 10^3 (0.0-1.0); MONOCYTES % (AUTO) 11 % (0-12); NEUTROPHILS # (AUTO) 4.7 X 10^3 (1.8-7.8); NEUTROPHILS % (AUTO) 74 % (42-75); PLATELET COUNT 201 10^3/uL (130-400); RED CELL DISTRIBUTION WIDTH 15.6 % (10.0-14.5); WHITE BLOOD COUNT 6.3 10^3/uL (4.3-11.0)
[2020-07-08 05:30] LABS: CHLORIDE 107 MMOL/L (98-107); POTASSIUM 4.4 MMOL/L (3.6-5.0); SODIUM 140 MMOL/L (135-145)
[2020-07-08 05:32] LABS: CALCIUM 8.1 MG/DL (8.5-10.1); GLUCOSE 97 MG/DL (70-105)
[2020-07-08 05:34] LABS: CARBON DIOXIDE 27 MMOL/L (21-32)
[2020-07-08 05:36] LABS: CREATININE SERUM 0.97 MG/DL (0.60-1.30); GFR ESTIMATED > 60; PHOSPHORUS 3.4 MG/DL (2.3-4.7)
[2020-07-08 05:37] LABS: BUN/CREATININE RATIO 12
[2020-07-08 05:38] LABS: MAGNESIUM 1.8 MG/DL (1.6-2.4)
[2020-07-08] MEDS: SUCRALFATE 1 GM (CARAFATE) TAB PO SCH ×3 (06:41→15:25)
[2020-07-08] MEDS: FUROSEMIDE 40 MG (LASIX) TAB PO SCH ×2 (06:41→16:02)
[2020-07-08 08:00] VITALS: BP 139/62
[2020-07-08] MEDS: lisINopril 5 MG (PRINIVIL) TABLET PO SCH (08:57)
[2020-07-08] MEDS: PANTOPRAZOLE 40 MG (PROTONIX) VIAL IV SCH (08:57)
[2020-07-08] MEDS: DOCUSATE SODIUM 100 MG (COLACE) CAP PO SCH (08:57)
[2020-07-08] MEDS: SENNOSIDES 8.6 MG (SENOKOT) TAB PO SCH (08:59)
[2020-07-08] MEDS: CLOPIDOGREL 75 MG (PLAVIX) TABLET PO SCH (08:59)
--- NOTE | 2020-07-08 09:09 | Progress Note - Cardiology ---
Cardiology SOAP Progress Note Subjective: Sitting up in recliner at the bedside. Gen weakness. C/O LE swelling. Frequent lose cough. Objective: I&O/Vital Signs 07/08/20 07/08/20 07/08/20 07/08/20 01:00 04:00 07:00 08:00 Temp 36.4 36.7 Pulse 72 73 76 112 Resp 22 16 B/P (MAP) 122/69 (86) 139/62 (87) Pulse Ox 91 88 O2 Delivery Nasal Cannula Nasal Cannula O2 Flow Rate 3.00 2.50 07/08/20 07/08/20 09:00 09:15 Pulse Ox 88 O2 Delivery Nasal Cannula O2 Flow Rate 3.00 2.50 07/08/20 00:00 Intake Total 1430 ml Output Total 5100 ml Balance -3670 ml Weight (Pounds): 295 Weight (Ounces): 14.4 Weight (Calculated Kilograms): [id number] Constitutional: AAO x 3, well-developed, well-nourished Respiratory: No accessory muscle use; other (Fair, bilat air entry; prolonged exp; diminished air entry at bases; coarse basal crackles) Cardiovascular: regular rate-rhythm, S1 and S2, systolic murmur (soft ROBERTO at card base) Gastrointestional: No tender; soft; No guarding, No rebound; audible bowel sounds Extremities: No clubbing, No cyanosis; significant edema (bilat, mod to mod sev, pitting edema of the legs) Neurologic/Psychiatric: other (moves all limbs equally) Skin: normal color, warm/dry Results/Procedures: Labs Laboratory Tests 07/08/20 04:55: White Blood Count 6.3, Red Blood Count 2.36L, Hemoglobin 7.6L, Hematocrit 24L, Mean Corpuscular Volume 103H, Mean Corpuscular Hemoglobin 32, Mean Corpuscular Hemoglobin Concent 31L, Red Cell Distribution Width 15.6H, Platelet Count 201, Mean Platelet Volume 10.4, Neutrophils (%) (Auto) 74, Lymphocytes (%) (Auto) 12, Monocytes (%) (Auto) 11, Eosinophils (%) (Auto) 3, Basophils (%) (Auto) 0, Neutrophils # (Auto) 4.7, Lymphocytes # (Auto) 0.7L, Monocytes # (Auto) 0.7, Eosinophils # (Auto) 0.2, Basophils # (Auto) 0.0, Sodium Level 140, Potassium Level 4.4, Chloride Level 107, Carbon Dioxide Level 27, Anion Gap 6, Blood Urea Nitrogen 12, Creatinine 0.97, Estimat Glomerular Filtration Rate > 60, BUN/Creatinine Ratio 12, Glucose Level 97, Calcium Level 8.1L, Phosphorus Level 3.4, Magnesium Level 1.8 Microbiology 07/05/20 MRSA Screen - Final, Complete MRSA not isolated 07/05/20 Blood Culture - Preliminary, Resulted No growth 07/05/20 Urine Culture - Final, Complete Morganella morganii A/P: Assessment: Hypotension, likely medication-induced - improved Recent (May 2020) renal failure, likely due to vol depletion due to diuretics and GI bleed Severe anemia due to slow GI bleed. Endoscopy by Dr Blackwell on 07/02/20: Reflux esophagitis stage II, small to moderate size hiatal hernia approximately 2 cm in size, moderate gastritis with prepyloric type 3 gastric ulcer with an overlying fibrin clot, less than 1 cm in size. No active bleeding. Chronic stage II external and internal hemorrhoids Chronic systolic CHF due to ischemic cardiomyopathy Chronic obstructive pulmonary disease due to tobaccoism, followed by Dr Steele. Has intermittent hypoxia for which he is on prn oxygen Obesity with obesity-hypoventilation syndrome. Sleep studies of 12/21/16: nocturnal hypoxemia, primary snoring without VIJI, paroxysmal narrow complex tachycardia S/p removal of L-sided ICD and associated leads for device pocket infection in Dec 2013. He now has new leads and a new R-sided device that was placed in Dec 2013, functioning normally per interrogation of 06-05-20 Coronary artery disease artery disease. Last cath was on 04/26/18. It showed severe prox disease of LAD that was stented with Alp Xience 4x15. In the mid LAD there were patent overlapping stents (Telecommunications Manager [id number] Telecommunications Manager 3x24) and the 1st OM of LCX had a patent stent (Promus James 3.5x12). The RCA was dominant with mild plaques. LVEF was 40% there was anteroapical hypokinesis and mild elev of LVEDP MPI of 12/21/17: anteroapical infarction with minimal raheem-infarct ischemia; anteroapical akinesis/dyskinesis and LVEF 39%, significant cardiomegaly Echo of 06/06/19: LVEF 35-40%, mod enlarged LA, RVSP 40 mmHg Abnormal ECG on 12/08/16: NSR with LBBB. ECG of 06/05/20 essentially unchanged Hyperlipidemia, being treated with statin therapy. Degenerative joint disease and lumbago. 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 Carlos this morning * PT for strengthening * Management of anemia per medicals services COLT MARCOS Jul 08, 2020 09:09
--- NOTE | 2020-07-08 09:49 | Progress Note - Surgery ---
KINDRARICARDO MED STUDENT 07/08/20 0949: Subjective Date Seen by a Provider: Jul 08, 2020 Time Seen by a Provider: 08:40 Subjective/Events-last exam Pt appears comfortable and in no acute distress. UTI Sx have continued to improve and Hbg has stabilized. Is tolerating diet well. Denies nausea, vomiting, fever, chills. Focused Exam Lactate Level 07/05/20 18:09: Lactic Acid Level 1.91 Time of Focused Exam: 19:05 Objective Exam Vital Signs Date Time Temp Pulse Resp B/P (MAP) Pulse Ox O2 Delivery O2 Flow Rate FiO2 07/08/20 09:15 2.50 07/08/20 08:00 36.7 112 16 139/62 (87) 88 Nasal Cannula 2.50 07/08/20 07:00 76 07/08/20 04:00 36.4 73 22 122/69 (86) 91 Nasal Cannula 3.00 07/08/20 01:00 72 07/08/20 00:00 36.4 71 22 104/55 (71) 91 Nasal Cannula 3.00 07/07/20 20:50 Nasal Cannula 3.00 07/07/20 20:47 36.7 70 20 104/55 (71) 90 Nasal Cannula 2.50 07/07/20 19:00 80 07/07/20 15:30 36.9 76 22 129/69 (89) 90 Nasal Cannula 3.00 07/07/20 12:59 102 07/07/20 12:00 36.5 57 20 122/61 (81) 96 Nasal Cannula 3.00 I & O 07/08/20 07:00 Intake Total 1930 ml Output Total 6100 ml Balance -4170 ml Capillary Refill : Less Than 3 SecondsLess Than 3 Seconds General Appearance: No Apparent Distress, Chronically ill, Obese HEENT: PERRL/EOMI, Normal ENT Inspection Neck: Normal Inspection, Supple Respiratory: Lungs Clear, No Respiratory Distress, Decreased Breath Sounds, Other (Wearing nasal cannula) Cardiovascular: Regular Rate, Rhythm, No Murmur Peripheral Pulses: 2+ Radial Pulses (R) Gastrointestinal: non tender, soft, no organomegaly Extremity: Non Tender, Pedal Edema, Swelling Neurologic/Psychiatric: Alert, Oriented x3, No Motor/Sensory Deficits, Normal Mood/Affect Skin: Normal Color, Warm/Dry Lymphatic: No Adenopathy Results Lab Laboratory Tests 8/10/20 04:55: White Blood Count 6.3, Red Blood Count 2.36L, Hemoglobin 7.6L, Hematocrit 24L, Mean Corpuscular Volume 103H, Mean Corpuscular Hemoglobin 32, Mean Corpuscular Hemoglobin Concent 31L, Red Cell Distribution Width 15.6H, Platelet Count 201, Mean Platelet Volume 10.4, Neutrophils (%) (Auto) 74, Lymphocytes (%) (Auto) 12, Monocytes (%) (Auto) 11, Eosinophils (%) (Auto) 3, Basophils (%) (Auto) 0, Neutrophils # (Auto) 4.7, Lymphocytes # (Auto) 0.7L, Monocytes # (Auto) 0.7, Eosinophils # (Auto) 0.2, Basophils # (Auto) 0.0, Sodium Level 140, Potassium Level 4.4, Chloride Level 107, Carbon Dioxide Level 27, Anion Gap 6, Blood Urea Nitrogen 12, Creatinine 0.97, Estimat Glomerular Filtration Rate > 60, BUN/Crea tinine Ratio 12, Glucose Level 97, Calcium Level 8.1L, Phosphorus Level 3.4, Magnesium Level 1.8 Microbiology 07/05/20 MRSA Screen - Final, Complete MRSA not isolated 07/05/20 Blood Culture - Preliminary, Resulted No growth 07/05/20 Urine Culture - Final, Complete Morganella morganii Assessment/Plan Assessment/Plan Assessment/Plan anemia secondary to gi bleed, recent gastric ulcer UTI Hypotension-resolved diet as tolerates hgb stable follow labs no surgical intervention will follow Clinical Quality Measures DVT/VTE Risk/Contraindication: Risk Factor Score Per Nursin RFS Level Per Nursing on Admit: 4+=Very High Contraindications-Pharm: Other *list below* Contraindications-Mechi: Other *list below* Other: PT HAS HGB OF 8 WITH HISTORY OF BLEEDING ULCER AND POSSIBLE SCOPE IN THE AM STEPHAN ROBERTSON DO 07/08/201952: Subjective Subjective/Events-last exam Sitting in chair. No new complaints. Urinary symptoms improving. Breathing okay. Hgb Stable. No blood in stool. Denies fever sweats chills shortness of breath or chest pain. Objective Exam General Appearance: No Apparent Distress, Obese HEENT: PERRL/EOMI, Normal ENT Inspection Neck: Normal Inspection, Non Tender Respiratory: Chest Non Tender, No Accessory Muscle Use, No Respiratory Distress Cardiovascular: Regular Rate, Rhythm, No Edema Gastrointestinal: non tender, soft, no organomegaly; No tenderness Extremity: Non Tender, Pedal Edema Neurologic/Psychiatric: Alert, Oriented x3, No Motor/Sensory Deficits, Normal Mood/Affect Skin: Normal Color, Warm/Dry Lymphatic: No Adenopathy Assessment/Plan Assessment/Plan Assessment/Plan anemia secondary to gi bleed, recent gastric ulcer UTI Hypotension-resolved Hgb essentially stable Medical management no surgical intervention Diet as tolerates Supervisory-Addendum Brief Verification & Attestation Participated in pt care: history, MDM, physical Personally performed: exam, history, MDM, supervision of care Care discussed with: Medical Student Procedures: n/a Results interpretation: Verified all documentation Verification and Attestation of Medical Student E/M Service A medical student performed and documented this service in my presence. I reviewed and verified all information documented by the medical student and made modifications to such information, when appropriate. I personally performed the physical exam and medical decision making. Stephan Robertson, Jul 08, 2020,19:52 RICARDO ARGUELLES MED STUDENT Jul 08, 2020 09:49 STEPHAN ROBERTSON DO Jul 08, 2020 19:53
--- NOTE | 2020-07-08 10:03 | NUR ---
DR. WEISS NOTIFIED OF SURGICAL CONSULT AT THIS TIME. THIS RN WILL CONT TO MONITOR THIS PATIENT.
--- NOTE | 2020-07-08 10:20 | Physical Therapy Evaluation ---
PT Evaluation-General Medical Diagnosis Admission Date Jul 05, 2020 at 18:38 Medical Diagnosis: anemia, UTI, hypotensino Onset Date: Jul 05, 2020 Therapy Diagnosis Therapy Diagnosis: impaired mobility, enduance Height/Weight Height (Feet): 6 Height (Inches): 0.00 Weight (Pounds): 295 Weight (Ounces): 14.4 Precautions Precautions/Isolations: Fall Prevention, Standard Precautions Weight Bear Status Right Lower Extremity: Right Weight Bearing/Tolerated Left Lower Extremity: Left Weight Bearing/Tolerated Referral Physician: Harman Reason for Referral: Evaluation/Treatment Medical History Pertinent Medical History: CAD, COPD, Heart Failure, HTN, ID, Smoking Additional Medical History Past Medical History Surgeries: Cardiac, Coronary Stent, Defibrillator, Orthopedic Respiratory: COPD, Sleep Apnea Currently Using CPAP: Yes Cardiac: Cardiomyopathy, Coronary Artery Disease, Heart Attack, Hypertension Neurological: Neuropathy Reproductive: No Genitourinary: Benign Prostatic Hyperpl, Renal Failure Musculoskeletal: Arthritis Reviewed History: Yes Social History Home: Assisted Living Current Living Status: Alone Entry Into Home: Stairs Without Railing PT Steps Into Home: 2 Patient states he has scheduled assistance at home. Prior Prior Level of Function SCALE: Activities may be completed with or without assistive devices. 8-Gqfyuvkpfm-xjeswkn completes the activity by him/herself with no assistance f rom a helper. 5-Set-up or Clean-up Assistance-helper sets up or cleans up; patient completes activity. [place] assists only prior to or following the activity. 4-Supervision or Touching Assistance-helper provides verbal cues and/or touching/steadying and/or contact guard assistance as patient completes activity. Assistance may be provided throughout the activity or intermittently. 3-Partial/Moderate Assistance-helper does LESS THAN HALF the effort. [place] lifts, holds or supports trunk or limbs, but provides less than half the effort. 2-Substantial/Maximal Assistance-helper does MORE THAN HALF the effort. [place] lifts or holds trunk or limbs and provides more than half the effort. 5-Munmoltsf-bvzmcx does ALL the effort. Patient does none of the effort to complete the activity. Or, the assistance of 2 or more helpers is required for the patient to complete the activity. If activity was not attempted, code reason: 7-Patient Refused. 9-Not Applicable-not attempted and the patient did not perform the activity before the current illness, exacerbation or injury. 10-Not Attempted due to Environmental Limitations-(lack of equipment, weather restraints, etc.). 88-Not Attempted due to Medical Conditions or Safety Concerns. Bed Mobility: 6 Transfers (B,C,W/C): 6 Gait: 6 Stairs: 6 Indoor Mobility (Ambulation): Independent Stairs: Independent Patient states he only ambulates short distances PT Evaluation-Current Subjective Patient in recliner pre tx, agrees to PT, no complaints of pain. Patient requests to not ambulate at this time, he says he has been ambulating to the restroom and around his room independently, he says he is at his prior level of mobility and the swelling in his legs has not impaired that. Pt/Family Goals to be independent at home Objective Patient Orientation: Person, Place, Situation Attachments: Oxygen ROM/Strength ROM Lower Extremities WNL Strength Lower Extremities 5/5 gross BLE Sensory Vision: Functional Hearing: Impaired Sensation Right Lower Extremit: Intact Sensation Left Lower Extremity: Intact Treatment BLE exercises x20 (AP, LAQ). Patient instructed to perform these on his own, the LAQ several times a day and the ankle pumps every hour to prevent DVT's. Assessment/Needs Patient is at previous mobility level, he is independent with mobility and ambulating short distances without an assistive device. Patient will be discharged from services at this time, patient agrees, it was explained to him if he gets weaker or feels a need for PT to contact his nurse. Rehab Potential: Fair PT Plan Problem List Problem List: Activity Tolerance, Gait Treatment/Plan Treatment Plan: Discontinue PT Treatment Duration: Jul 08, 2020 Frequency: Patient and/or Family Agrees t: Yes Safety Risks/Education Patient Education: Correct Positioning, Safety Issues Teaching Recipient: Patient Teaching Methods: Demonstration, Discussion Response to Teaching: Reinforcement Needed Discharge Recommendations Plan DC Therapy Discharge Recommendati: Home & Family Time/GCodes Time In: 0956 Time Out: 1008 Total Billed Treatment Time: 12 Total Billed Treatment 1 visit JUVENTINO LOMBARDO PT Jul 08, 2020 10:20
--- NOTE | 2020-07-08 11:40 | Progress Note - Cardiology ---
Cardiology SOAP Progress Note Subjective: Gen malaise and weakness, but better than at time of admission No rigors or chills No cp or palp or syncope No shortness of breath at rest. Short of breath with mild activity No n/v/d Objective: I&O/Vital Signs 07/08/20 07/08/20 07/08/20 07/08/20 00:00 01:00 04:00 07:00 Temp 36.4 36.4 Pulse 71 72 73 76 Resp 22 22 B/P (MAP) 104/55 (71) 122/69 (86) Pulse Ox 91 91 O2 Delivery Nasal Cannula Nasal Cannula O2 Flow Rate 3.00 3.00 07/08/20 07/08/20 07/08/20 08:00 09:00 09:15 Temp 36.7 Pulse 112 Resp 16 B/P (MAP) 139/62 (87) Pulse Ox 88 88 O2 Delivery Nasal Cannula Nasal Cannula O2 Flow Rate 2.50 3.00 2.50 07/08/20 00:00 Intake Total 1430 ml Output Total 5100 ml Balance -3670 ml Weight (Pounds): 295 Weight (Ounces): 14.4 Weight (Calculated Kilograms): 134.968868 Constitutional: AAO x 3, well-developed, well-nourished Respiratory: No accessory muscle use; other (Fair, bilat air entry; prolonged e xp; diminished air entry at bases; coarse basal crackles) Cardiovascular: regular rate-rhythm, S1 and S2, systolic murmur (soft ROBERTO at card base) Gastrointestional: No tender; soft; No guarding, No rebound; audible bowel sounds Extremities: No clubbing, No cyanosis; significant edema (bilat, mod to mod sev, pitting edema of the legs) Neurologic/Psychiatric: other (moves all limbs equally) Skin: normal color, warm/dry Results/Procedures: Labs Laboratory Tests 07/08/20 04:55: White Blood Count 6.3, Red Blood Count 2.36L, Hemoglobin 7.6L, Hematocrit 24L, Mean Corpuscular Volume 103H, Mean Corpuscular Hemoglobin 32, Mean Corpuscular Hemoglobin Concent 31L, Red Cell Distribution Width 15.6H, Platelet Count 201, Mean Platelet Volume 10.4, Neutrophils (%) (Auto) 74, Lymphocytes (%) (Auto) 12, Monocytes (%) (Auto) 11, Eosinophils (%) (Auto) 3, Basophils (%) (Auto) 0, Neutrophils # (Auto) 4.7, Lymphocytes # (Auto) 0.7L, Monocytes # (Auto) 0.7, Eosinophils # (Auto) 0.2, Basophils # (Auto) 0.0, Sodium Level 140, Potassium Level 4.4, Chloride Level 107, Carbon Dioxide Level 27, Anion Gap 6, Blood Urea Nitrogen 12, Creatinine 0.97, Estimat Glomerular Filtration Rate > 60, BUN/Creatinine Ratio 12, Glucose Level 97, Calcium Level 8.1L, Phosphorus Level 3.4, Magnesium Level 1.8 Microbiology 07/05/20 MRSA Screen - Final, Complete MRSA not isolated 07/05/20 Blood Culture - Preliminary, Resulted No growth 07/05/20 Urine Culture - Final, Complete Morganella morganii Laboratory Tests 07/07/20 05:15 07/08/20 04:55 A/P: Assessment: Hypotension, likely medication-induced - improved Recent (May 2020) renal failure, likely due to vol depletion due to diuretics and GI bleed Severe anemia due to slow GI bleed. Endoscopy by Dr Blackwell on 07/02/20: Reflux esophagitis stage II, small to moderate size hiatal hernia approximately 2 cm in size, moderate gastritis with prepyloric type 3 gastric ulcer with an overlying fibrin clot, less than 1 cm in size. No active bleeding. Chronic stage II external and internal hemorrhoids Chronic systolic CHF due to ischemic cardiomyopathy Chronic obstructive pulmonary disease due to tobaccoism, followed by Dr Steele. Has intermittent hypoxia for which he is on prn oxygen Obesity with obesity-hypoventilation syndrome. Sleep studies of 12/21/16: nocturnal hypoxemia, primary snoring without VIJI, paroxysmal narrow complex tachycardia S/p removal of L-sided ICD and associated leads for device pocket infection in Dec 2013. He now has new leads and a new R-sided device that was placed in Dec 2013, functioning normally per interrogation of 06-05-20 Coronary artery disease artery disease. Last cath was on 04/26/18. It showed severe prox disease of LAD that was stented with Alp Xience 4x15. In the mid LAD there were patent overlapping stents (Web Site Admin [id number] Web Site Admin 3x24) and the 1st OM of LCX had a patent stent (Promus James 3.5x12). The RCA was dominant with mild plaques. LVEF was 40% there was anteroapical hypokinesis and mild elev of LVEDP MPI of 12/21/17: anteroapical infarction with minimal raheem-infarct ischemia; anteroapical akinesis/dyskinesis and LVEF 39%, significant cardiomegaly Echo of 06/06/19: LVEF 35-40%, mod enlarged LA, RVSP 40 mmHg Abnormal ECG on 12/08/16: NSR with LBBB. ECG of 06/05/20 essentially unchanged Hyperlipidemia, being treated with statin therapy. Degenerative joint disease and lumbago. 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
[2020-07-08 12:00] VITALS: BP 104/53
[2020-07-08] MEDS ORDERED: ATOR80TA76 PO (12:12)
[2020-07-08] MEDS ORDERED: FURO80TA83 PO (12:12)
[2020-07-08] MEDS ORDERED: POTA20TA15 PO (12:12)
[2020-07-08] MEDS ORDERED: L.AC1CAP6 PO (12:12)
[2020-07-08] MEDS ORDERED: SUCR1TAB PO (12:12)
[2020-07-08] MEDS ORDERED: TMSL.4C PO (12:17)
[2020-07-08] MEDS ORDERED: MTP25TSR PO (12:17)
[2020-07-08] MEDS ORDERED: RT-ALBUINH IH (12:17)
[2020-07-08] MEDS ORDERED: LISI-556 PO (12:17)
[2020-07-08] MEDS ORDERED: FLUT1DIS26 IH (12:17)
--- NOTE | 2020-07-08 12:20 | Discharge Inst-Simple/Standard ---
Discharge Inst-Standard Patient Instructions/Follow Up Plan of Care/Instructions/FU: Please continue to take your medications as written. Please follow up with your primary care doctor within the next week. Activity as Tolerated: Yes Discharge Diet: Cardiac Diet Return to The Hospital For: Chest pain, shortness of breath, weakness, fever, confusion, if you feel you are getting worse. Planned Outpatient Orders/Ref. Pneu Vac Indicated: Yes RUIZ APODACA MD Jul 08, 2020 12:20
[2020-07-08] MEDS ORDERED: CEFD300C3 PO (12:22)
--- NOTE | 2020-07-08 12:24 | Discharge Summary ---
Diagnosis/Chief Complaint Date of Admission Jul 05, 2020 at 18:38 Date of Discharge Discharge Date: Jul 08, 2020 Admission Diagnosis Urinary tract infection Primary Care Jean-Claude Lopez MD Discharge Diagnosis (1) Urinary tract infection Status: Acute (2) Hypotension Status: Acute (3) NSAID-induced gastric ulcer Status: Acute (4) Acute blood loss anemia Status: Acute (5) Chronic systolic CHF (congestive heart failure) Status: Chronic Discharge Summary Procedures/Consulations Surgery- Dr Robertson Cardiology- Dr Baker Discharge Physical Exam Allergies: Coded Allergies: quinine (Verified Allergy, Unknown, 06/06/19) Vitals & I&Os Vital Signs Date Time Temp Pulse Resp B/P (MAP) Pulse Ox O2 Delivery O2 Flow Rate FiO2 07/08/20 12:59 105 07/08/20 12:00 36.5 16 104/53 (70) 90 Nasal Cannula 3.00 General Appearance: No Apparent Distress, WD/WN Respiratory: Lungs Clear, No Respiratory Distress Cardiovascular: Regular Rate, Rhythm, No Murmur Neurologic/Psychiatric: Alert, Oriented x3 Hospital Course Pt was admitted due to urinary tract infection. He was recently admitted due GI bleed and was discharged home but quickly developed dysuria prompting his quick return. He was treated with IV abx. His hemoglobin remained stable and no further intervention was needed. He was transitioned from Rocephin to omnicef per his sensitivities. He was requesting discharge home on day of discharge. I offered another day of admission as he just started having bowel movements again and he declined. I also offered home health to work on his strength and he declined this as well. He was discharged home in stable and improved condition. Labs (last 24 hrs) Laboratory Tests 07/08/20 04:55: White Blood Count 6.3, Red Blood Count 2.36L, Hemoglobin 7.6L, Hematocrit 24L, Mean Corpuscular Volume 103H, Mean Corpuscular Hemoglobin 32, Mean Corpuscular Hemoglobin Concent 31L, Red Cell Distribution Width 15.6H, Platelet Count 201, Mean Platelet Volume 10.4, Neutrophils (%) (Auto) 74, Lymphocytes (%) (Auto) 12, Monocytes (%) (Auto) 11, Eosinophils (%) (Auto) 3, Basophils (%) (Auto) 0, Neutrophils # (Auto) 4.7, Lymphocytes # (Auto) 0.7L, Monocytes # (Auto) 0.7, Eosinophils # (Auto) 0.2, Basophils # (Auto) 0.0, Sodium Level 140, Potassium Level 4.4, Chloride Level 107, Carbon Dioxide Level 27, Anion Gap 6, Blood Urea Nitrogen 12, Creatinine 0.97, Estimat Glomerular Filtration Rate > 60, BUN/Creatinine Ratio 12, Glucose Level 97, Calcium Level 8.1L, Phosphorus Level 3.4, Magnesium Level 1.8 Microbiology 07/05/20 MRSA Screen - Final, Complete MRSA not isolated 07/05/20 Blood Culture - Preliminary, Resulted No growth 07/05/20 Urine Culture - Final, Complete Morganella morganii Patient resulted labs reviewed. Pending Labs Imaging: Reviewed Imaging Report Discussion & Recommendations Discharge Planning: >30 minutes discharge planning Discharge Home Medications: Active Scripts Active Cefdinir 300 Mg Capsule 300 Mg PO BID Advair 250-50 Diskus (Fluticasone/Salmeterol) 1 Each Blst.w.dev 1 Each IH BID Proair Hfa (Albuterol Sulfate) 1 Puff Puff 2 Puff IH Q4H PRN 1 PUFF = 90 MCG Lisinopril 5 Mg Tablet 5 Mg PO DAILY@0900 Metoprolol Succinate 25 Mg Tab.er.24h 25 Mg PO DAILY Flomax (Tamsulosin HCl) 0.4 Mg Cap 0.4 Mg PO DAILY@1800 Protonix (Pantoprazole Sodium) 40 Mg Tablet.dr 40 Mg PO BID 60 Days Take twice daily for 8 weeks, then once daily Reported Probiotic (L.acidoph & Paracasei,B.lactis) 1 Each Capsule 1 Each PO BID Potassium Chloride 20 Meq Tab.er.prt 20 Meq PO BID LAST FILLED 08-17-2019 #120 Lasix (Furosemide) 80 Mg Tablet 80 Mg PO BID LAST FILLED 10-03-2019 #180/90 DAY SUPPLY Atorvastatin Calcium 80 Mg Tablet 80 Mg PO HS LAST FILLED 03-18-2020 #30 Sucralfate 1 Gm Tablet 1 Gm PO QIDACHS Plavix (Clopidogrel Bisulfate) 75 Mg Tablet 75 Mg PO DAILY Oxycodone-Acetaminophen 10-325 (Oxycodone HCl/Acetaminophen) 1 Each Tablet 1 Tab PO Q6H PRN Tramadol HCl 50 Mg Tablet 50 Mg PO TID PRN Instructions to patient/family Please see electronic discharge instructions given to patient. Clinical Quality Measures DVT/VTE Risk/Contraindication: Risk Factor Score Per Nursin RFS Level Per Nursing on Admit: 4+=Very High Contraindications-Pharm: Other *list below* Contraindications-Mechi: Other *list below* Other: PT HAS HGB OF 8 WITH HISTORY OF BLEEDING ULCER AND POSSIBLE SCOPE IN THE AM Problem Qualifiers (1) Urinary tract infection: Urinary tract infection type: site unspecified Hematuria presence: with hematuria Qualified Codes: N39.0 - Urinary tract infection, site not specified; R31.9 - Hematuria, unspecified (2) Hypotension: Hypotension type: unspecified hypotension type Qualified Codes: I95.9 - Hypotension, unspecified RUIZ APODACA MD Jul 08, 2020 12:24
--- NOTE | 2020-07-08 12:24 | NUR ---
CHANDLER/CLARK visited with patient for social service consult. Plan: The patient will return home at time of discharge. CHANDLER/CLARK visited with patient in regards to his readmission and the option of home health. CHANDLER/CLARK spoke with the patient's physician in regards to plan of care. She states that he would benefit from home health. CM/SS provided the patient with a patient preference form and educated him on the benefits and disciplines different roles. He verbalized understanding and stated he get's that it would benefit him; however, he reports that he needs to think about it an discuss it with his family. The patient stated this is due to the condition of his home (cluttered). CM/SS gave time for patient to discuss with family and think it over. The patient's physician reported to this sw that the patient verbalized he does not want home health at this time but will keep the preference form in case he changes his mind. No further needs at this time.
[2020-07-08] MEDS: cefTRIAXone FOR IV USE 2,000 MG in WATER (STERILE) FOR INJECTION 20 ML IV SCH (12:39)
[2020-07-08] MEDS: ENOXAPARIN 40 MG/0.4 ML (LOVENOX) SYR SC SCH (12:39)
--- NOTE | 2020-07-08 13:02 | Occ Therapy Progress Note ---
Therapy Progress Note [id number] Pt seen in room, up in recliner, eating. He reported that he has been toileting himself, dressing himself and managing all other basic ADLs. He has assistance at home as needed for IADLs and still drives. He reported that he is being discharged in an hour or so. No skilled OT needs identified and pt is in agreement. DC OT. visit SLIME CORDERO OT Jul 08, 2020 13:01
--- NOTE | 2020-07-08 13:21 | NUR ---
SPOKE WITH THE PT AND WENT THRU THE EXT MED HISTORY TO COMPLETE THE MED REC I SPOKE WITH THE PT DURING HIS LAST ADMISSION AND ENTERED THE MED REC ON 07-01-2020- WHEN I WENT TO TALK WITH HIM TODAY HE TOLD HE IS WAS TAKING MEDICATIONS THAT HE DID NOT MENTION ON 07-01-2020 PT ADMITTED HE WAS NOT TAKING HIS MEDICATIONS PRESCRIBED BUT OVER THE LAST 3-5 MONTHS HE HAS STARTED TAKING THEM AGAIN. MOST OF THE FOLLOWING MEDICATIONS WOULD STILL BE OUT OF REFILLS IF HE HAD BEEN COMPLIANT JUST IN THE PAST 3 MONTHS. I DID DOCUMENT ALL THE PAST DUE FILLS ON THE FOLLOWING MEDS: FUROSEMIDE 80MG LAST FILLED 10-03-2019 #180/90DS POTASSIUM CL 20MEQ LAST FILLED 08-17-2019 #120/60DS ATORVASTATIN 80MG LAST FILLED 03-18-2020 #30/30DS METOLAZONE SHOWS ON THE EXT MED HISTORY BUT PT IS NO LONGER TAKING COREG 25MG HAS DIRECTIONS OF 1 TAB BID HOWEVER PT WAS TOLD TO DECREASE IS DOSE AND TAKE TAB BID PLEASE SEE MY NOTE FROM 07-01-2020 FOR MORE INSIGHT ON THESE 2 MEDS
[2020-07-08 16:29] VITALS: BP 102/56
[2020-07-08] MEDS: TAMSULOSIN 0.4 MG (FLOMAX) CAP PO SCH (17:05)
[2020-07-08 17:41] VITALS: BP 102/56
== END 2020-07-08 19:00 | disposition home or self-care (01) | DRG 689 ==
LOC: EDUNIT# 16:47 → ER 16:48 → ICU 18:38 → 4TH 07-06 11:32
PROVIDERS: ADMIT Internal Medicine; ATTEND Internal Medicine
DX: N39.0 Urinary tract infection, site not specified (principal); K25.4 Chronic or unspecified gastric ulcer with hemorrhage; D62 Acute posthemorrhagic anemia; I50.22 Chronic systolic (congestive) heart failure; E66.2 Morbid (severe) obesity with alveolar hypoventilation; I95.9 Hypotension, unspecified; E86.0 Dehydration; T39.395A Adverse effect of other nonsteroidal anti-inflammatory drugs [NSAID], initial encounter; I11.0 Hypertensive heart disease with heart failure; I25.5 Ischemic cardiomyopathy; I25.10 Atherosclerotic heart disease of native coronary artery without angina pectoris; G62.9 Polyneuropathy, unspecified; N40.1 Benign prostatic hyperplasia with lower urinary tract symptoms; K21.0 Gastro-esophageal reflux disease with esophagitis; K44.9 Diaphragmatic hernia without obstruction or gangrene; K64.1 Second degree hemorrhoids; Z68.37 Body mass index [BMI] 37.0-37.9, adult; E78.5 Hyperlipidemia, unspecified; M47.816 Spondylosis without myelopathy or radiculopathy, lumbar region; J44.9 Chronic obstructive pulmonary disease, unspecified; Z99.81 Dependence on supplemental oxygen; N39.43 Post-void dribbling; R35.1 Nocturia; M19.91 Primary osteoarthritis, unspecified site; I71.4 Abdominal aortic aneurysm, without rupture; I65.23 Occlusion and stenosis of bilateral carotid arteries; Z87.891 Personal history of nicotine dependence; Z95.5 Presence of coronary angioplasty implant and graft; Z95.810 Presence of automatic (implantable) cardiac defibrillator; I25.2 Old myocardial infarction; Z85.819 Personal history of malignant neoplasm of unspecified site of lip, oral cavity, and pharynx
CPT/HCPCS: 36415; 71045; 80048; 80053; 81000; 83605; 83735; 84100; 84145; 85025; 86141; 86850; 86900; 86901; 86920; 87040; 87077; 87081; 87088; 87186

== ENCOUNTER → 2021-05-14 | Outpatient (CLI) | payer MEDICARE, OTHER ==
[~2021-05-14] MED LIST changes: +ASPI-1238 PO; -ASPI-983 PO; +CEFD300C3 PO; +FLUT1DIS26 IH; +FURO80TA83 PO; +L.AC1CAP6 PO; +LISI-729 PO; -LISI40TA PO; +LISI40TA9 PO; -MONT10TA26 PO; +MONT10TA32 PO; +MTP25TSR PO; -OXYC-465 PO; +OXYC-556 PO; +POTA20TA15 PO; +SUCR1TAB PO; +TIZA-169 PO; -TIZA2TAB7 PO; +TMSL.4C PO
== END ==
LOC: WOUNDCARE 13:22
PROVIDERS: ATTEND Surgery
DX: I89.0 Lymphedema, not elsewhere classified (principal); I50.9 Heart failure, unspecified; L97.212 Non-pressure chronic ulcer of right calf with fat layer exposed; I70.232 Atherosclerosis of native arteries of right leg with ulceration of calf; E66.01 Morbid (severe) obesity due to excess calories; J44.9 Chronic obstructive pulmonary disease, unspecified
CPT/HCPCS: 99213

== ENCOUNTER → 2021-05-19 | Outpatient (CLI) | payer MEDICARE, OTHER | LOC: WOUNDCARE 15:08 | PROVIDERS: ATTEND Surgery | DX: I89.0 Lymphedema, not elsewhere classified (principal); I87.331 Chronic venous hypertension (idiopathic) with ulcer and inflammation of right lower extremity; L97.212 Non-pressure chronic ulcer of right calf with fat layer exposed; I50.9 Heart failure, unspecified; I70.232 Atherosclerosis of native arteries of right leg with ulceration of calf; E66.01 Morbid (severe) obesity due to excess calories; I96 Gangrene, not elsewhere classified; J44.9 Chronic obstructive pulmonary disease, unspecified; Z68.43 Body mass index [BMI] 50.0-59.9, adult | CPT/HCPCS: 99213 ==

== ENCOUNTER → 2021-05-26 | Outpatient (CLI) | payer MEDICARE, OTHER | LOC: WOUNDCARE 15:15 | PROVIDERS: ATTEND Surgery | DX: I89.0 Lymphedema, not elsewhere classified (principal); I96 Gangrene, not elsewhere classified; I87.331 Chronic venous hypertension (idiopathic) with ulcer and inflammation of right lower extremity; I70.232 Atherosclerosis of native arteries of right leg with ulceration of calf; I50.9 Heart failure, unspecified; J44.9 Chronic obstructive pulmonary disease, unspecified; L97.212 Non-pressure chronic ulcer of right calf with fat layer exposed; E66.01 Morbid (severe) obesity due to excess calories | CPT/HCPCS: 99213 ==

== ENCOUNTER → 2021-06-09 | Outpatient (CLI) | payer MEDICARE, OTHER | LOC: WOUNDCARE 15:10 | PROVIDERS: ATTEND Surgery | DX: I89.0 Lymphedema, not elsewhere classified (principal); I87.331 Chronic venous hypertension (idiopathic) with ulcer and inflammation of right lower extremity; J44.9 Chronic obstructive pulmonary disease, unspecified; L97.212 Non-pressure chronic ulcer of right calf with fat layer exposed; I50.9 Heart failure, unspecified; I70.232 Atherosclerosis of native arteries of right leg with ulceration of calf; E66.01 Morbid (severe) obesity due to excess calories; I96 Gangrene, not elsewhere classified; Z68.43 Body mass index [BMI] 50.0-59.9, adult | CPT/HCPCS: 99213 ==

== ENCOUNTER → 2021-06-19 | Outpatient (CLI) | payer MEDICARE, OTHER | LOC: WOUNDCARE 13:58 | PROVIDERS: ATTEND Surgery | DX: I89.0 Lymphedema, not elsewhere classified (principal); I87.331 Chronic venous hypertension (idiopathic) with ulcer and inflammation of right lower extremity; L97.212 Non-pressure chronic ulcer of right calf with fat layer exposed; I50.9 Heart failure, unspecified; E66.01 Morbid (severe) obesity due to excess calories; J44.9 Chronic obstructive pulmonary disease, unspecified; I96 Gangrene, not elsewhere classified | CPT/HCPCS: 99213 ==

== ENCOUNTER → 2021-06-23 | Outpatient (CLI) | payer MEDICARE, OTHER ==
--- NOTE | 2021-06-23 16:34 | Diagnostic Imaging Report ---
INDICATION: COPD and dyspnea. Comparison is made with prior examination of 06/12/2019. FINDINGS: There is cardiomegaly. There is mild venous congestion. There are patchy bibasilar infiltrates. There is no pleural effusion or pneumothorax. The mediastinum is unremarkable. Pacemaker overlies the right hemithorax and is unchanged in position. IMPRESSION: Patchy bibasilar pulmonary infiltrates. Cardiomegaly with mild central pulmonary venous congestion. Dictated by: Dictated on workstation # [id number]
== END ==
LOC: RAD 15:24
PROVIDERS: ATTEND Internal Medicine Critical Care Medicine
DX: J44.9 Chronic obstructive pulmonary disease, unspecified (principal); I51.7 Cardiomegaly
CPT/HCPCS: 71046

== ENCOUNTER → 2021-06-23 | Outpatient (CLI) | payer MEDICARE, OTHER | LOC: WOUNDCARE 14:25 | PROVIDERS: ATTEND Surgery | DX: I89.0 Lymphedema, not elsewhere classified (principal); I96 Gangrene, not elsewhere classified; I87.331 Chronic venous hypertension (idiopathic) with ulcer and inflammation of right lower extremity; L97.512 Non-pressure chronic ulcer of other part of right foot with fat layer exposed; I50.9 Heart failure, unspecified; J44.9 Chronic obstructive pulmonary disease, unspecified; E66.01 Morbid (severe) obesity due to excess calories; Z68.43 Body mass index [BMI] 50.0-59.9, adult | CPT/HCPCS: 99213 ==

== ENCOUNTER → 2021-07-02 | Outpatient (CLI) | payer MEDICARE, OTHER | LOC: WOUNDCARE 09:31 | PROVIDERS: ATTEND Surgery | DX: I89.0 Lymphedema, not elsewhere classified (principal); I96 Gangrene, not elsewhere classified; I87.331 Chronic venous hypertension (idiopathic) with ulcer and inflammation of right lower extremity; L97.212 Non-pressure chronic ulcer of right calf with fat layer exposed; J44.9 Chronic obstructive pulmonary disease, unspecified; I50.9 Heart failure, unspecified; E66.01 Morbid (severe) obesity due to excess calories; Z68.43 Body mass index [BMI] 50.0-59.9, adult | CPT/HCPCS: 29581; A6207; A6253; G0463 ==

== ENCOUNTER → 2021-07-04 | Outpatient (CLI) | payer MEDICARE, OTHER | LOC: WOUNDCARE 14:45 | PROVIDERS: ATTEND Orthopaedic Surgery Hand Surgery | DX: I89.0 Lymphedema, not elsewhere classified (principal); J44.9 Chronic obstructive pulmonary disease, unspecified; I49.9 Cardiac arrhythmia, unspecified; I50.9 Heart failure, unspecified | CPT/HCPCS: 29581; A6207; A6253; G0463 ==

== ENCOUNTER → 2021-07-07 | Outpatient (CLI) | payer MEDICARE, OTHER | LOC: WOUNDCARE 10:05 | PROVIDERS: ATTEND Surgery | DX: I89.0 Lymphedema, not elsewhere classified (principal); I87.311 Chronic venous hypertension (idiopathic) with ulcer of right lower extremity; J44.9 Chronic obstructive pulmonary disease, unspecified | CPT/HCPCS: 29581; A6207; A6253; G0463 ==

== ENCOUNTER → 2021-07-11 | Outpatient (CLI) | payer MEDICARE, OTHER | LOC: WOUNDCARE 10:01 | PROVIDERS: ATTEND Surgery | DX: I89.0 Lymphedema, not elsewhere classified (principal); I87.311 Chronic venous hypertension (idiopathic) with ulcer of right lower extremity; J44.9 Chronic obstructive pulmonary disease, unspecified; I11.9 Hypertensive heart disease without heart failure | CPT/HCPCS: 29581; A6207; G0463 ==

== ENCOUNTER → 2021-07-14 | Outpatient (CLI) | payer MEDICARE, OTHER | LOC: WOUNDCARE 14:30 | PROVIDERS: ATTEND Surgery | DX: I89.0 Lymphedema, not elsewhere classified (principal); I87.331 Chronic venous hypertension (idiopathic) with ulcer and inflammation of right lower extremity; L97.212 Non-pressure chronic ulcer of right calf with fat layer exposed; I50.9 Heart failure, unspecified; E66.01 Morbid (severe) obesity due to excess calories; J44.9 Chronic obstructive pulmonary disease, unspecified; I96 Gangrene, not elsewhere classified | CPT/HCPCS: 11042; A6207; G0463 ==

== ENCOUNTER → 2021-07-18 | Outpatient (CLI) | payer MEDICARE, OTHER | LOC: WOUNDCARE 11:09 | PROVIDERS: ATTEND Surgery | DX: I89.0 Lymphedema, not elsewhere classified (principal); L97.212 Non-pressure chronic ulcer of right calf with fat layer exposed; J44.9 Chronic obstructive pulmonary disease, unspecified | CPT/HCPCS: 29581; A6207; G0463 ==

== ENCOUNTER → 2021-07-21 | Outpatient (CLI) | payer MEDICARE, OTHER | LOC: WOUNDCARE 10:35 | PROVIDERS: ATTEND Surgery | DX: I89.0 Lymphedema, not elsewhere classified (principal); I87.331 Chronic venous hypertension (idiopathic) with ulcer and inflammation of right lower extremity; L97.212 Non-pressure chronic ulcer of right calf with fat layer exposed; I50.9 Heart failure, unspecified; E66.01 Morbid (severe) obesity due to excess calories; J44.9 Chronic obstructive pulmonary disease, unspecified; I96 Gangrene, not elsewhere classified | CPT/HCPCS: 11042 ==

== ENCOUNTER → 2021-07-25 | Outpatient (CLI) | payer MEDICARE, OTHER | LOC: WOUNDCARE 10:50 | PROVIDERS: ATTEND Surgery | DX: I89.0 Lymphedema, not elsewhere classified (principal); L97.212 Non-pressure chronic ulcer of right calf with fat layer exposed; J44.9 Chronic obstructive pulmonary disease, unspecified; I50.9 Heart failure, unspecified | CPT/HCPCS: 29581; A6207; G0463 ==

== ENCOUNTER → 2021-07-28 | Outpatient (CLI) | payer MEDICARE, OTHER | LOC: WOUNDCARE 14:19 | PROVIDERS: ATTEND Surgery | DX: I89.0 Lymphedema, not elsewhere classified (principal); I96 Gangrene, not elsewhere classified; L97.212 Non-pressure chronic ulcer of right calf with fat layer exposed; L97.221 Non-pressure chronic ulcer of left calf limited to breakdown of skin; I50.9 Heart failure, unspecified; E66.01 Morbid (severe) obesity due to excess calories; J44.9 Chronic obstructive pulmonary disease, unspecified; Z68.43 Body mass index [BMI] 50.0-59.9, adult | CPT/HCPCS: 29581; 97597; A6207; G0463 ==

== ENCOUNTER → 2021-07-31 | Outpatient (CLI) | payer MEDICARE, OTHER | LOC: WOUNDCARE 10:01 | PROVIDERS: ATTEND Surgery | DX: I89.0 Lymphedema, not elsewhere classified (principal); L97.212 Non-pressure chronic ulcer of right calf with fat layer exposed; J44.9 Chronic obstructive pulmonary disease, unspecified; I50.9 Heart failure, unspecified; L97.222 Non-pressure chronic ulcer of left calf with fat layer exposed | CPT/HCPCS: 29581; A6207; G0463 ==

== ENCOUNTER → 2021-08-05 | Outpatient (CLI) | payer MEDICARE, OTHER ==
[~2021-08-05] MED LIST changes: +ALBU2.5V4 NEB; +BUDE0.5A NEB; +DOCU100C37 PO; +FORM20VI NEB; +NALO25TA PO; +REVE175V IH; +SODI30SP2 NSEACH
== END ==
LOC: WOUNDCARE 14:18
PROVIDERS: ATTEND Surgery
DX: I89.0 Lymphedema, not elsewhere classified (principal); I96 Gangrene, not elsewhere classified; I87.333 Chronic venous hypertension (idiopathic) with ulcer and inflammation of bilateral lower extremity; L97.212 Non-pressure chronic ulcer of right calf with fat layer exposed; L97.221 Non-pressure chronic ulcer of left calf limited to breakdown of skin; I50.9 Heart failure, unspecified; E66.01 Morbid (severe) obesity due to excess calories; J44.9 Chronic obstructive pulmonary disease, unspecified; Z68.43 Body mass index [BMI] 50.0-59.9, adult
CPT/HCPCS: 11042; 29581; A6207; G0463

== ENCOUNTER → 2021-08-08 | Outpatient (CLI) | payer MEDICARE, OTHER | LOC: WOUNDCARE 10:28 | PROVIDERS: ATTEND Surgery | DX: I89.0 Lymphedema, not elsewhere classified (principal); I87.331 Chronic venous hypertension (idiopathic) with ulcer and inflammation of right lower extremity; I96 Gangrene, not elsewhere classified | CPT/HCPCS: 29581; A6207; G0463 ==

== ENCOUNTER 2021-08-12 09:59 | Inpatient (IN) | payer MEDICARE, OTHER ==
[~2021-08-12] VITALS: Ht 182.8 cm; Wt 135.0 kg
[~2021-08-12 09:59] MED LIST changes: -ALBU2.5V4 NEB; -BUDE0.5A NEB; -DOCU100C37 PO; -FORM20VI NEB; -NALO25TA PO; -REVE175V IH; -SODI30SP2 NSEACH
[2021-08-12] MEDS ORDERED: LORazepam INJ 2 MG/ML (ATIVAN) VIAL IVP ONE (10:15)
[2021-08-12] MEDS ORDERED: NS IV 1000 ML 1,000 ML IV SCH (10:15)
[2021-08-12] MEDS ORDERED: ASPIRIN 81 MG CHEW (CHILDREN'S ASA) PO ONE (10:30)
[2021-08-12 10:32] LABS: ALBUMIN 3.5 GM/DL (3.2-4.5); POTASSIUM 4.7 MMOL/L (3.6-5.0)
[2021-08-12 10:33] LABS: CALCIUM 8.7 MG/DL (8.5-10.1)
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
[2021-08-12 10:35] LABS: TOTAL PROTEIN 7.4 GM/DL (6.4-8.2)
[2021-08-12 10:36] LABS: BILIRUBIN,TOTAL 0.8 MG/DL (0.1-1.0)
[2021-08-12 10:38] LABS: CREATININE SERUM 1.22 MG/DL (0.60-1.30)
[2021-08-12 10:39] LABS: BASOPHILS % (AUTO) 0 % (0-10); EOSINOPHILS % (AUTO) 0 % (0-10); HEMATOCRIT 42 % (40-54); LYMPHOCYTES # (AUTO) 0.5 10^3/uL (1.0-4.0); LYMPHOCYTES % (AUTO) 3 % (12-44); MEAN CORPUSCULAR HEMOGLOBIN 33 pg (25-34); MEAN CORPUSCULAR HGB CONC 31 g/dL (32-36); MEAN CORPUSCULAR VOLUME 104 fL (80-99); MEAN PLATELET VOLUME 11.3 fL (9.0-12.2); MONOCYTES % (AUTO) 7 % (0-12); NEUTROPHILS # (AUTO) 13.2 10^3/uL (1.8-7.8); NEUTROPHILS % (AUTO) 89 % (42-75); PLATELET COUNT 181 10^3/uL (130-400); WHITE BLOOD COUNT 14.8 10^3/uL (4.3-11.0)
[2021-08-12 11:12] LABS: BAND NEUTROPHILS 6 %; BASOPHILS % (MANUAL) 0 %; EOSINOPHILS % (MANUAL) 0 %; LYMPHOCYTES % (MANUAL) 2 %; MONOCYTES % (MANUAL) 2 %; NEUTROPHILS % (MANUAL) 90 %; POLYCHROMASIA SLIGHT
[2021-08-12 11:17] LABS: ABG BASE EXCESS -0.6 MMOL/L (-2.5-2.5); ABG OXYGEN SATURATION 83 % (94-100); ABG PCO2 42 MMHG (35-45); ABG PH 7.37 (7.37-7.43); ABG PO2 54 MMHG (79-93); ABG TCO2 25.3 MMOL/L (21.0-31.0)
[2021-08-12 11:18] LABS: ALLENS TEST POSITIVE; INSPIRED O2 2 L; PATIENT TEMP 36.6; VENTILATOR YES
[2021-08-12] MEDS ORDERED: FUROSEMIDE 40 MG/4 ML INJ (LASIX) IVP ONE (11:30)
[2021-08-12] MEDS ORDERED: methylPREDNISolone 125 MG (Solu-MEDROL) VIAL IVP ONE (11:30)
--- NOTE | 2021-08-12 11:40 | Diagnostic Imaging Report ---
INDICATION: Shortness of air with cough. EXAMINATION: Chest, 08/12/2021. COMPARISON: 07/06/2020. FINDINGS: There is cardiomegaly and pulmonary vascular congestion with findings of edema throughout both lungs. Bibasilar atelectasis or infiltrates also noted. There is a pacemaker on the right, stable from previous imaging. No pneumothorax. IMPRESSION: 1. Pulmonary edema with scattered bibasilar infiltrates. Dictated by: Dictated on workstation # [id number]
--- NOTE | 2021-08-12 11:53 | Consultation-Cardiology ---
HPI-Cardiology Cardiology Consultation: Date of Consultation 08/12/21 Time Seen by a Provider: 13:30 Date of Admission 08-12-2021 Attending Physician Admitting Physician Jean-Claude Lopez MD Consulting Physician Elsa Baker MD HPI: Chief Complaint: Acute on chronic systolic CHF Mr. Moreno is a 65 yr old male admitted to 509 from the ED with increasing SOB and LE swelling. Review of Systems-Cardiology Review of Systems Constitutional: No chills, No fever; malaise Eyes: No vision change Ears/Nose/Throat: No recent hearing loss Respiratory: As described under HPI Psychiatric/Neurological: No anxiety, No depression, No seizure, No focal weakness, No syncope Hematologic: No bleeding abnormalities All Other Systems Reviewed Negative Unless Noted: Yes MVZ-Sbevtp-Hvfohn Hx Patient Social History Smoking Status: Former Smoker Have you traveled recently?: No Alcohol Use?: No Pt feels they are or have been: No Immunizations Up To Date Tetanus Booster (TDap): Unknown Past Medical History PMH As described under Assessment. Family Medical History Family Medical History: He does not report fam h/o early CAD or SCD Allergies and Home Medications Allergies Coded Allergies: quinine (Verified Allergy, Unknown, 06/06/19) Patient Home Medication List Albuterol Sulfate (Proair Hfa) 1 Puff Puff, 2 PUFF IH Q4H PRN for SHORTNESS OF BREATH Prescribed by: RUIZ APODACA on 07/08/20 1217 Atorvastatin Calcium (Atorvastatin Calcium) 80 Mg Tablet, 80 MG PO HS, (Reporte d) Entered as Reported by: BOBY ROSALES on 07/08/20 1212 Cefdinir (Cefdinir) 300 Mg Capsule, 300 MG PO BID Prescribed by: RUIZ APODACA on 07/08/20 1222 Clopidogrel Bisulfate (Plavix) 75 Mg Tablet, 75 MG PO DAILY, (Reported) Entered as Reported by: BOBY ROSALES on 07/01/20 1010 Fluticasone/Salmeterol (Advair 250-50 Diskus) 1 Each Blst.w.dev, 1 EACH IH BID Prescribed by: RUIZ APODACA on 07/08/20 1217 Furosemide (Lasix) 80 Mg Tablet, 80 MG PO BID, (Reported) Entered as Reported by: BOBY ROSALES on 07/08/20 1212 L.acidoph & Paracasei,B.lactis (Probiotic) 1 Each Capsule, 1 EACH PO BID, (Rep orted) Entered as Reported by: BOBY ROSALES on 07/08/20 1212 Lisinopril (Lisinopril) 5 Mg Tablet, 5 MG PO DAILY@0900 Prescribed by: RUIZ APODACA on 07/08/20 1217 Metoprolol Succinate (Metoprolol Succinate) 25 Mg Tab.er.24h, 25 MG PO DAILY Prescribed by: RUIZ APODACA on 07/08/20 1217 Oxycodone HCl/Acetaminophen (Oxycodone-Acetaminophen 10-325) 1 Each Tablet, 1 TAB PO Q6H PRN for PAIN-MODERATE, (Reported) Entered as Reported by: RODERICK UMANZOR on 06/06/19 1434 Pantoprazole Sodium (Protonix) 40 Mg Tablet.dr, 40 MG PO BID Prescribed by: JUJU CURIEL on 07/03/20 1110 Potassium Chloride (Potassium Chloride) 20 Meq Tab.er.prt, 20 MEQ PO BID, (Reported) Entered as Reported by: BOBY ROSALES on 07/08/20 1212 Sucralfate (Sucralfate) 1 Gm Tablet, 1 GM PO QIDACHS, (Reported) Entered as Reported by: BOBY ROSALES on 07/08/20 1212 Tamsulosin HCl (Flomax) 0.4 Mg Cap, 0.4 MG PO DAILY@1800 Prescribed by: RUIZ APODACA on 07/08/20 1217 Tramadol HCl (Tramadol HCl) 50 Mg Tablet, 50 MG PO TID PRN for PAIN-MODERATE, (Reported) Entered as Reported by: RODERICK UMANZOR on 06/06/19 1434 Physical Exam-Cardiology Physical Exam Vital Signs/I&O 08/12/21 08/12/21 08/12/21 08/12/21 10:03 10:03 10:31 12:30 Temp 36.6 Pulse 72 Resp 12 B/P (MAP) 99/79 (86) Pulse Ox 89 97 91 O2 Delivery Nasal Cannula Nasal Cannula Vapotherm Vapotherm O2 Flow Rate 15.00 15.00 30.00 30.00 FiO2 80 70 08/12/21 13:44 Pulse 71 Resp 26 B/P (MAP) 138/73 (94) Pulse Ox 94 O2 Delivery Vapotherm O2 Flow Rate 40.00 100.00 Capillary Refill : Data Review Labs Laboratory Tests 08/12/21 10:07: White Blood Count 14.8H, Red Blood Count 4.00L, Hemoglobin 13.0L, Hematocrit 42, Mean Corpuscular Volume 104H, Mean Corpuscular Hemoglobin 33, Mean Corpuscular Hemoglobin Concent 31L, Red Cell Distribution Width 15.5H, Platelet Count 181, Mean Platelet Volume 11.3, Immature Granulocyte % (Auto) 0, Neutrophils (%) (Auto) 89H, Lymphocytes (%) (Auto) 3L, Monocytes (%) (Auto) 7, Eosinophils (%) (Auto) 0, Basophils (%) (Auto) 0, Neutrophils # (Auto) 13.2H, Lymphocytes # (Auto) 0.5L, Monocytes # (Auto) 1.0, Eosinophils # (Auto) 0.0, Basophils # (Auto) 0.0, Immature Granulocyte # (Auto) 0.1, Neutrophils % (Manual) 90, Lymphocytes % (Manual) 2, Monocytes % (Manual) 2, Eosinophils % (Manual) 0, Basophils % (Manual) 0, Band Neutrophils 6, Polychromasia SLIGHT, Macrocytosis SLIGHT, Sodium Level 137, Potassium Level 4.7, Chloride Level 102, Carbon Dioxide Level 25, Anion Gap 10, Blood Urea Nitrogen 26H, Creatinine 1.22, Estimat Glomerular Filtration Rate 60, BUN/Creatinine Ratio 21, Glucose Level 107H, Calcium Level 8.7, Corrected Calcium 9.1, Total Bilirubin 0.8, Aspartate Amino Transf (AST/SGOT) 23, Alanine Aminotransferase (ALT/SGPT) 14, Alkaline Phosphatase 119, Troponin I 0.089H, C-Reactive Protein High Sensitivity 3.55H, B-Type Natriuretic Peptide 1097.6H, Total Protein 7.4, Albumin 3.5, Procalcitonin 0.09 08/12/21 10:22: SARS-CoV-2 RNA (RT-PCR) Not Detected 08/12/21 11:07: Blood Gas Puncture Site RIGHT RADIAL, Blood Gas Patient Temperature 36.6, Arterial Blood pH 7.37, Arterial Blood Partial Pressure CO2 42, Arterial Blood Partial Pressure O2 54L, Arterial Blood HCO3 24, Arterial Blood Total CO2 25.3, Arterial Blood Oxygen Saturation 83L, Arterial Blood Base Excess -0.6, Collin Kaylen t POSITIVE, Blood Gas Ventilator Setting YES, Blood Gas Inspired Oxygen 2 L Radiology NAME: WHIT MORENO [facility] REC#: [id number] PT STATUS: REG ER : 1955 PHYSICIAN: LISA PENA MD ADMIT DATE: 08/12/21/ER Signed Date of Exam:08/12/21 CHEST 1 VIEW, AP/PA ONLY INDICATION: Shortness of air with cough. EXAMINATION: Chest, 08/12/2021. COMPARISON: 07/06/2020. FINDINGS: There is cardiomegaly and pulmonary vascular congestion with findings of edema throughout both lungs. Bibasilar atelectasis or infiltrates also noted. There is a pacemaker on the right, stable from previous imaging. No pneumothorax. IMPRESSION: 1. Pulmonary edema with scattered bibasilar infiltrates. Dictated by: Dictated on workstation # [id number] Dict: 08/12/21 1135 Trans: 08/12/21 1143 [id number] Interpreted by: STEPH REDDY MD Electronically signed by: STEPH REDDY MD 08/12/21 1143 ECG Impression ECG Initial ECG Rhythm: Normal Sinus A/P-Cardiology Assessment/Admission Diagnosis Multi factorial progressive SOB (reasons noted below) Acute on chronic systolic CHF due to ischemic cardiomyopathy Chronic obstructive pulmonary disease due to tobaccoism, - previously followed by Dr Steele. Has intermittent hypoxia for which he is on prn oxygen Obesity with obesity-hypoventilation syndrome - Sleep studies of 12/21/16: nocturnal hypoxemia, primary snoring without VIJI, paroxysmal narrow complex tachycardia Chronically mildly elevated troponin since 2018 H/O renal failure, likely due to vol depletion due to diuretics and GI bleed (May 2020) H/O Severe anemia due to slow GI bleed. - Endoscopy by Dr Blackwell on 07/02/20: Reflux esophagitis stage II, small to moderate size hiatal hernia approximately 2 cm in size, moderate gastritis with prepyloric type 3 gastric ulcer with an overlying fibrin clot, less than 1 cm in size. No active bleeding. Chronic stage II external and internal hemorrhoids ICM with AICD - S/p removal of L-sided ICD and associated leads for device pocket infection in Dec 2013. - He now has new leads and a new R-sided device that was placed in Dec 2013, functioning normally per interrogation of 06-05-20 - Echo of 06/06/19: LVEF 35-40%, mod enlarged LA, RVSP 40 mmHg Coronary artery disease artery disease. - Last cath was on 04/26/18. It showed severe prox disease of LAD that was stented with Alp Xience 4x15. In the mid LAD there were patent overlapping stents (Research Support Specialist [id number] Research Support Specialist 3x24) and the 1st OM of LCX had a patent stent (Promus James 3.5x12). The RCA was dominant with mild plaques. LVEF was 40% there was anteroapical hypokinesis and mild elev of LVEDP - MPI of 12/21/17: anteroapical infarction with minimal raheem-infarct ischemia; anteroapical akinesis/dyskinesis and LVEF 39%, significant cardiomegaly Abnormal ECG on 12/08/16: - NSR with LBBB. ECG of 06/05/20 essentially unchanged Hyperlipidemia - being treated with statin therapy. Ortho - Degenerative joint disease and lumbago. 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
[2021-08-12] MEDS ORDERED: oxyCODONE/APAP 5/325MG (PERCOCET 5) TABLET PO ONE (13:30)
[2021-08-12 13:44] VITALS: BP 138/73
[2021-08-12] MEDS ORDERED: ONDANSETRON 4 MG/2 ML (SDV) Z0FRAN IV PRN (14:00)
[2021-08-12] MEDS ORDERED: CATHETER FLUSH 10 ML SYR IV PRN (14:00)
[2021-08-12] MEDS: oxyCODONE/APAP 10/325MG (PERCOCET 10) TABLET PO PRN ×2 (14:09→19:31)
--- NOTE | 2021-08-12 14:16 | Consultation-Cardiology ---
HPI-Cardiology Cardiology Consultation: Date of Consultation 08/12/21 Time Seen by a Provider: 13:50 Date of Admission Attending Physician Juju Curiel MD Admitting Physician Jean-Claude Lopez MD Consulting Physician JOSE CARLOS KENDALL MD, MA, FACP, FACC, FSCAI, CCDS HPI: Chief Complaint: Increasing shortness of breath and increasing swelling Mr. Hightower is a 65 yr old male admitted to [facility] from the ED with increasing SOB and LE swelling. He has multiple cardiovascular comorbidities that are outlined below. Has been noncompliant with Cardiology f/u. Has had increasing gen malaise and weakness for several week. Shortness of breath has been progressive. Was getting oxygen saturation in the 80s at home despite supplemental oxygen. Swelling has been getting progressively worse. Finds is difficult to lay flat w/o getting short of breath, even at rest. Denies cp or palp or syncope or shocks from his ICD. Has chronic reddish discoloration of the legs, had had leg wound earlier this year that resolved after he followed up with the Wound Care clinic at this hospital Review of Systems-Cardiology Review of Systems Constitutional: malaise, weight gain Eyes: No vision change Ears/Nose/Throat: No recent hearing loss Respiratory: As described under HPI Gastrointestinal: No diarrhea, No nausea, No vomiting Genitourinary: No dysuria, No hematuria, No urine frequency changes Musculoskeletal: back pain (chronic), joint pain (chronic) Skin: As described under HPI Psychiatric/Neurological: No anxiety, No depression, No seizure, No focal weakness, No syncope Hematologic: No bleeding abnormalities All Other Systems Reviewed Negative Unless Noted: Yes SQH-Fplcpb-Saddlb Hx Patient Social History Smoking Status: Former Smoker Have you traveled recently?: No Alcohol Use?: No Pt feels they are or have been: No Immunizations Up To Date Tetanus Booster (TDap): Unknown Past Medical History PMH As described under Assessment. Family Medical History Family Medical History: He does not report fam h/o early CAD or SCD Allergies and Home Medications Allergies Coded Allergies: quinine (Verified Allergy, Unknown, 06/06/19) Patient Home Medication List Home Medication List Reviewed: Yes Albuterol Sulfate (Proair Hfa) 1 Puff Puff, 2 PUFF IH Q4H PRN for SHORTNESS OF BREATH Prescribed by: RUIZ APODACA on 07/08/20 1217 Atorvastatin Calcium (Atorvastatin Calcium) 80 Mg Tablet, 80 MG PO HS, (Reported) Entered as Reported by: BOBY ROSALES on 07/08/20 1212 Cefdinir (Cefdinir) 300 Mg Capsule, 300 MG PO BID Prescribed by: RUIZ APODACA on 07/08/20 1222 Clopidogrel Bisulfate (Plavix) 75 Mg Tablet, 75 MG PO DAILY, (Reported) Entered as Reported by: BOBY ROSALES on 07/01/20 1010 Fluticasone/Salmeterol (Advair 250-50 Diskus) 1 Each Blst.w.dev, 1 EACH IH BID Prescribed by: RUIZ APODACA on 07/08/20 1217 Furosemide (Lasix) 80 Mg Tablet, 80 MG PO BID, (Reported) Entered as Reported by: BOBY ROSALES on 07/08/20 1212 L.acidoph & Paracasei,B.lactis (Probiotic) 1 Each Capsule, 1 EACH PO BID, (Reported) Entered as Reported by: BOBY ROSALES on 07/08/20 1212 Lisinopril (Lisinopril) 5 Mg Tablet, 5 MG PO DAILY@0900 Prescribed by: RUIZ APODACA on 07/08/20 1217 Metoprolol Succinate (Metoprolol Succinate) 25 Mg Tab.er.24h, 25 MG PO DAILY Prescribed by: RUIZ APODACA on 07/08/20 1217 Oxycodone HCl/Acetaminophen (Oxycodone-Acetaminophen 10-325) 1 Each Tablet, 1 TAB PO Q6H PRN for PAIN-MODERATE, (Reported) Entered as Reported by: RODERICK UMANZOR on 06/06/19 1434 Pantoprazole Sodium (Protonix) 40 Mg Tablet.dr, 40 MG PO BID Prescribed by: JUJU CURIEL on 07/03/20 1110 Potassium Chloride (Potassium Chloride) 20 Meq Tab.er.prt, 20 MEQ PO BID, (Reported) Entered as Reported by: BOBY ROSALES on 07/08/20 1212 Sucralfate (Sucralfate) 1 Gm Tablet, 1 GM PO QIDACHS, (Reported) Entered as Reported by: BOBY ROSALES on 07/08/20 1212 Tamsulosin HCl (Flomax) 0.4 Mg Cap, 0.4 MG PO DAILY@1800 Prescribed by: RUIZ APODACA on 07/08/20 1217 Tramadol HCl (Tramadol HCl) 50 Mg Tablet, 50 MG PO TID PRN for PAIN-MODERATE, (Reported) Entered as Reported by: RODERICK UMANZOR on 06/06/19 1434 Physical Exam-Cardiology Physical Exam Vital Signs/I&O 08/12/21 08/12/21 08/12/21 08/12/21 10:03 10:03 10:31 12:30 Temp 36.6 Pulse 72 Resp 12 B/P (MAP) 99/79 (86) Pulse Ox 89 97 91 O2 Delivery Nasal Cannula Nasal Cannula Vapotherm Vapotherm O2 Flow Rate 15.00 15.00 30.00 30.00 FiO2 80 70 08/12/21 13:44 Pulse 71 Resp 26 B/P (MAP) 138/73 (94) Pulse Ox 94 O2 Delivery Vapotherm O2 Flow Rate 40.00 100.00 Capillary Refill : Constitutional: AAO x 3, apparent distress, well-developed, well-nourished, other (obese) HEENT: PERRL, EOMI; No xanthelasmas are seen Neck: No carotid bruit; carotid pulses are 2 + bilaterally, with good upstrokes Respiratory: No accessory muscle use; other (bilateral coarse crackles and rhonchi over large airways; prolonged exp; diminished bs at the bases) Cardiovascular: regular rate-rhythm, S1 and S2, systolic murmur (soft ROBERTO at the cardiac base) Gastrointestinal: No tender; soft; No guarding, No rebound; audible bowel sounds Extremities: other (reddish brown discoloration of the legs, thickening and flaking of the skin of both lower legs); No clubbing, No cyanosis; significant edema (bilateral, 3-4+ edema of both legs) Neurologic/Psychiatric: oriented x 3, other (moves all limbs equally) Skin: warm/dry, other (see under Extremities exam above) Data Review Labs Laboratory Tests 08/12/21 10:07: White Blood Count 14.8H, Red Blood Count 4.00L, Hemoglobin 13.0L, Hematocrit 42, Mean Corpuscular Volume 104H, Mean Corpuscular Hemoglobin 33, Mean Corpuscular Hemoglobin Concent 31L, Red Cell Distribution Width 15.5H, Platelet Count 181, Mean Platelet Volume 11.3, Immature Granulocyte % (Auto) 0, Neutrophils (%) (Auto) 89H, Lymphocytes (%) (Auto) 3L, Monocytes (%) (Auto) 7, Eosinophils (%) (Auto) 0, Basophils (%) (Auto) 0, Neutrophils # (Auto) 13.2H, Lymphocytes # (Auto) 0.5L, Monocytes # (Auto) 1.0, Eosinophils # (Auto) 0.0, Basophils # (Auto) 0.0, Immature Granulocyte # (Auto) 0.1, Neutrophils % (Manual) 90, Lymphocytes % (Manual) 2, Monocytes % (Manual) 2, Eosinophils % (Manual) 0, Basophils % (Manual) 0, Band Neutrophils 6, Polychromasia SLIGHT, Macrocytosis SLIGHT, Sodium Level 137, Potassium Level 4.7, Chloride Level 102, Carbon Parveen xide Level 25, Anion Gap 10, Blood Urea Nitrogen 26H, Creatinine 1.22, Estimat Glomerular Filtration Rate 60, BUN/Creatinine Ratio 21, Glucose Level 107H, Dom cium Level 8.7, Corrected Calcium 9.1, Total Bilirubin 0.8, Aspartate Amino Transf (AST/SGOT) 23, Alanine Aminotransferase (ALT/SGPT) 14, Alkaline Phosphatase 119, Troponin I 0.089H, C-Reactive Protein High Sensitivity 3.55H, B-Type Natriuretic Peptide 1097.6H, Total Protein 7.4, Albumin 3.5, Procalcitonin 0.09 08/12/21 10:22: SARS-CoV-2 RNA (RT-PCR) Not Detected 08/12/21 11:07: Blood Gas Puncture Site RIGHT RADIAL, Blood Gas Patient Temperature 36.6, Arterial Blood pH 7.37, Arterial Blood Partial Pressure CO2 42, Arterial Blood Partial Pressure O2 54L, Arterial Blood HCO3 24, Arterial Blood Total CO2 25.3, Arterial Blood Oxygen Saturation 83L, Arterial Blood Base Excess -0.6, Collin Test POSITIVE, Blood Gas Ventilator Setting YES, Blood Gas Inspired Oxygen 2 L Laboratory Tests 08/12/21 10:07 A/P-Cardiology Assessment/Admission Diagnosis Acute on chronic systolic HFrEF due to ischemic cardiomyopathy Chronic obstructive pulmonary disease due to tobaccoism, - Has h/o intermittent hypoxia for which he is on prn oxygen Obesity with obesity-hypoventilation syndrome - Sleep studies of 12/21/16: nocturnal hypoxemia, primary snoring without VIJI, paroxysmal narrow complex tachycardia Chronically mildly elevated troponin since 2019 H/O Severe anemia due to slow GI bleed. - Endoscopy by Dr Blackwell on 07/02/20: Reflux esophagitis stage II, small to moderate size hiatal hernia approximately 2 cm in size, moderate gastritis with prepyloric type 3 gastric ulcer with an overlying fibrin clot, less than 1 cm in size. No active bleeding. Chronic stage II external and internal hemorrhoids ICM - AICD in place - S/p removal of L-sided ICD and associated leads for device pocket infection in Dec 2013, and new leads and new R-sided device placemennt in Dec 2013, functioning normally per interrogation of 06-05-20 - Echo of 06/06/19: LVEF 35-40%, mod enlarged LA, RVSP 40 mmHg Coronary artery disease artery disease. - Last cath was on 04/26/18. It showed severe prox disease of LAD that was stented with Alp Xience 4x15. In the mid LAD there were patent overlapping stents (Rubber Flap Cutter [id number] Rubber Flap Cutter 3x24) and the 1st OM of LCX had a patent stent (Promus James 3.5x12). The RCA was dominant with mild plaques. LVEF was 40% there was anteroapical hypokinesis and mild elev of LVEDP - MPI of 12/21/17: anteroapical infarction with minimal raheem-infarct ischemia; anteroapical akinesis/dyskinesis and LVEF 39%, significant cardiomegaly Abnormal ECG on 12/08/16: - NSR with LBBB. ECG of 06/05/20 essentially unchanged Hyperlipidemia - being treated with statin therapy. Ortho - Degenerative joint disease and lumbago. 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
[2021-08-12] MEDS ORDERED: CLOPIDOGREL 75 MG (PLAVIX) TABLET PO ONE (14:30)
[2021-08-12] MEDS ORDERED: lisINopril 5 MG (PRINIVIL) TABLET PO ONE (14:30)
[2021-08-12 14:34] VITALS: BP 138/73
[2021-08-12] MEDS: CATHETER FLUSH 10 ML SYR IV SCH ×2 (14:41→23:00)
[2021-08-12] MEDS ORDERED: RT-ALBUTEROL/IPRATROPIUM 3 ML (DUONEB) VIAL INH PRN (14:45)
[2021-08-12] MEDS ORDERED: SODI30SP2 NSEACH (15:25)
[2021-08-12] MEDS ORDERED: MONT10TA32 PO (15:25)
[2021-08-12] MEDS ORDERED: MTP25TSR PO (15:25)
[2021-08-12] MEDS ORDERED: FURO80TA3 PO (15:25)
[2021-08-12] MEDS ORDERED: NALO25TA PO (15:25)
[2021-08-12] MEDS ORDERED: TMSL.4C PO (15:25)
[2021-08-12] MEDS ORDERED: LISI-729 PO (15:25)
[2021-08-12] MEDS ORDERED: DOCU100C37 PO (15:25)
[2021-08-12] MEDS ORDERED: BUDE0.5A NEB (15:51)
[2021-08-12] MEDS ORDERED: ALBU2.5V4 NEB (15:51)
[2021-08-12] MEDS ORDERED: FORM20VI NEB (15:51)
[2021-08-12] MEDS ORDERED: REVE175V IH (15:51)
[2021-08-12 15:55] VITALS: BP 115/66
[2021-08-12] MEDS: FUROSEMIDE 40 MG/4 ML INJ (LASIX) IV SCH (16:49)
[2021-08-12] MEDS: TAMSULOSIN 0.4 MG (FLOMAX) CAP PO SCH (16:54)
[2021-08-12] MEDS: KCL 20 MEQ TAB (K-DUR) PO SCH (16:54)
[2021-08-12] MEDS: RT-ALBUTEROL/IPRATROPIUM 3 ML (DUONEB) VIAL INH SCH ×2 (19:30→22:16)
[2021-08-12] MEDS: PANTOPRAZOLE 40 MG (PROTONIX) TAB PO SCH (19:32)
[2021-08-12 19:35] VITALS: BP 127/80
[2021-08-13] VITALS: BP 108/53
[2021-08-13] MEDS: oxyCODONE/APAP 10/325MG (PERCOCET 10) TABLET PO PRN ×4 (01:42→18:14)
[2021-08-13] MEDS: RT-ALBUTEROL/IPRATROPIUM 3 ML (DUONEB) VIAL INH SCH ×6 (02:16→22:43)
[2021-08-13 04:00] VITALS: BP 106/56
[2021-08-13 05:25] LABS: BASOPHILS % (AUTO) 0 % (0-10); EOSINOPHILS % (AUTO) 0 % (0-10); HEMATOCRIT 44 % (40-54); HEMOGLOBIN 13.4 g/dL (13.3-17.7); LYMPHOCYTES # (AUTO) 0.4 10^3/uL (1.0-4.0); LYMPHOCYTES % (AUTO) 4 % (12-44); MEAN CORPUSCULAR HEMOGLOBIN 32 pg (25-34); MEAN CORPUSCULAR HGB CONC 31 g/dL (32-36); MEAN CORPUSCULAR VOLUME 106 fL (80-99); MEAN PLATELET VOLUME 11.1 fL (9.0-12.2); MONOCYTES # (AUTO) 0.3 10^3/uL (0.0-1.0); MONOCYTES % (AUTO) 3 % (0-12); NEUTROPHILS # (AUTO) 9.1 10^3/uL (1.8-7.8); NEUTROPHILS % (AUTO) 93 % (42-75); PLATELET COUNT 175 10^3/uL (130-400); WHITE BLOOD COUNT 9.8 10^3/uL (4.3-11.0)
[2021-08-13 05:36] LABS: POTASSIUM 4.2 MMOL/L (3.6-5.0)
[2021-08-13 05:37] LABS: CALCIUM 8.9 MG/DL (8.5-10.1)
[2021-08-13 05:41] LABS: CREATININE SERUM 1.07 MG/DL (0.60-1.30)
[2021-08-13] MEDS: CATHETER FLUSH 10 ML SYR IV SCH (06:17)
[2021-08-13] MEDS: FUROSEMIDE 40 MG/4 ML INJ (LASIX) IV SCH ×2 (06:43→17:21)
[2021-08-13] MEDS: KCL 20 MEQ TAB (K-DUR) PO SCH (06:43)
[2021-08-13] MEDS ORDERED: NS 100 ML (IVPB) BAG IV ONE ×2 (07:45→10:15)
[2021-08-13] MEDS ORDERED: CATHETER FLUSH 10 ML SYR IV PRN ×2 (07:45→10:15)
[2021-08-13] MEDS ORDERED: IOHEXOL 350 MG/ML 100 ML (OMNIPAQUE 350) VIAL IV ONE ×2 (07:45→10:15)
[2021-08-13] MEDS ORDERED: HOLD METFORMIN - RECEIVED CONTRAST 20 ML VIAL IV SCH ×2 (07:45→10:15)
[2021-08-13 08:05] VITALS: BP 112/74
[2021-08-13] MEDS: PANTOPRAZOLE 40 MG (PROTONIX) TAB PO SCH ×2 (08:07→21:49)
[2021-08-13] MEDS: ASPIRIN 81 MG CHEW (CHILDREN'S ASA) PO SCH (08:07)
[2021-08-13] MEDS: lisINopril 5 MG (PRINIVIL) TABLET PO SCH (08:08)
[2021-08-13] MEDS: CLOPIDOGREL 75 MG (PLAVIX) TABLET PO SCH (08:08)
--- NOTE | 2021-08-13 08:10 | Diagnostic Imaging Report ---
INDICATION: Shortness of breath. Cough. Comparison with 08/12/2021. FINDINGS: Cardiomegaly again noted. ICD pacer unchanged on the right. The lungs are relatively well-aerated. There continues to be bibasilar atelectasis and interstitial infiltrate. Upper lungs are clear. Probable mild bilateral basilar effusion. IMPRESSION: No significant overall change has occurred. Continued cardiomegaly with basilar infiltrates and small pleural effusion. Dictated by: Dictated on workstation # [id number]
--- NOTE | 2021-08-13 08:26 | Progress Note - Cardiology ---
Cardiology SOAP Progress Note Subjective: Sitting up in recliner at the side of the bed eating morning meal Vapo-therm in place No c/o CP Feels breathing is somewhat better than yesterday No c/o palpitations Objective: I&O/Vital Signs 08/13/21 08/13/21 08/14/21 08/14/21 21:00 22:43 00:00 01:00 Temp 36.2 Pulse 68 62 Resp 20 B/P (MAP) 110/62 (78) Pulse Ox 94 97 94 O2 Delivery Vapotherm Vapotherm Vapotherm O2 Flow Rate 35.00 35.00 35.00 75.00 FiO2 75 75 08/14/21 08/14/21 08/14/21 08/14/21 04:00 06:47 06:52 08:00 Temp 36.8 Pulse 77 88 Resp 20 20 B/P (MAP) 119/71 (87) 119/71 (87) Pulse Ox 94 97 92 O2 Delivery Vapotherm Vapotherm Vapotherm O2 Flow Rate 35.00 35.00 35.00 75.00 FiO2 75 60 08/14/21 00:00 Intake Total 1000 ml Output Total 1875 ml Balance -875 ml Weight (Pounds): 295 Weight (Ounces): 14.4 Weight (Calculated Kilograms): 134.197288 Constitutional: AAO x 3, apparent distress, well-developed, well-nourished, other (obese) Respiratory: No accessory muscle use; other (bilateral coarse crackles and rhonchi over large airways; prolonged exp; diminished bs at the bases) Cardiovascular: regular rate-rhythm, S1 and S2, systolic murmur (soft ROBERTO at the cardiac base) Gastrointestional: No tender; soft; No guarding, No rebound; audible bowel sounds Extremities: other (reddish brown discoloration of the legs, thickening and flaking of the skin of both lower legs); No clubbing, No cyanosis; significant edema (bilateral, 3-4+ edema of both legs) Neurologic/Psychiatric: oriented x 3, other (moves all limbs equally) Skin: warm/dry, other (see under Extremities exam above) Results/Procedures: Labs Laboratory Tests 08/14/21 08:21: Microbiology 08/12/21 Blood Culture - Preliminary, Resulted No growth Procedures NAME: WHIT MORENO JR MED REC#: [id number] PT STATUS: ADM IN : 1955 PHYSICIAN: JUJU CURIEL MD ADMIT DATE: 08/12/21/[facility] Draft Date of Exam:08/13/21 CHEST 1 VIEW, AP/PA ONLY INDICATION: Shortness of breath. Cough. Comparison with 08/12/2021. FINDINGS: Cardiomegaly again noted. ICD pacer unchanged on the right. The lungs are relatively well-aerated. There continues to be bibasilar atelectasis and interstitial infiltrate. Upper lungs are clear. Probable mild bilateral basilar effusion. IMPRESSION: No significant overall change has occurred. Continued cardiomegaly with basilar infiltrates and small pleural effusion. Dictated on workstation # [id number] Dict: 08/13/21 0756 Trans: 08/13/21 0808 [id number] Interpreted by: JACQUIE GREENE MD Electronically signed by: A/P: Assessment: Acute on chronic systolic HFrEF due to ischemic cardiomyopathy Chronic obstructive pulmonary disease due to tobaccoism, - Has h/o intermittent hypoxia for which he is on prn oxygen Obesity with obesity-hypoventilation syndrome - Sleep studies of 12/21/16: nocturnal hypoxemia, primary snoring without VIJI, paroxysmal narrow complex tachycardia Chronically mildly elevated troponin since 2019 H/O Severe anemia due to slow GI bleed. - Endoscopy by Dr Blackwell on 07/02/20: Reflux esophagitis stage II, small to moderate size hiatal hernia approximately 2 cm in size, moderate gastritis with prepyloric type 3 gastric ulcer with an overlying fibrin clot, less than 1 cm in size. No active bleeding. Chronic stage II external and internal hemorrhoids ICM - AICD in place - S/p removal of L-sided ICD and associated leads for device pocket infection in Dec 2013, and new leads and new R-sided device placemennt in Dec 2013, functioning normally per interrogation of 06-05-20 - Echo of 06/06/19: LVEF 35-40%, mod enlarged LA, RVSP 40 mmHg Coronary artery disease artery disease. - Last cath was on 04/26/18. It showed severe prox disease of LAD that was stented with Alp Xience 4x15. In the mid LAD there were patent overlapping stents (Convex Grinder Operator [id number] Convex Grinder Operator 3x24) and the 1st OM of LCX had a patent stent (Promus James 3.5x12). The RCA was dominant with mild plaques. LVEF was 40% there was anteroapical hypokinesis and mild elev of LVEDP - MPI of 12/21/17: anteroapical infarction with minimal raheem-infarct ischemia; anteroapical akinesis/dyskinesis and LVEF 39%, significant cardiomegaly Abnormal ECG on 12/08/16: - NSR with LBBB. ECG of 06/05/20 essentially unchanged Hyperlipidemia - being treated with statin therapy. Ortho - Degenerative joint disease and lumbago. 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
[2021-08-13] MEDS ORDERED: methylPREDNISolone 40 MG/ML (Solu-MEDROL) VIAL IV ONE (09:00)
[2021-08-13] MEDS ORDERED: CLOPIDOGREL 75 MG (PLAVIX) TABLET PO SCH (09:00)
--- NOTE | 2021-08-13 10:45 | Progress Note - Cardiology ---
Cardiology SOAP Progress Note Subjective: Still notes marked malaise Shortness of breath with minimal activity Notes gen swelling and abd distention No cp or palp or syncope No n/v/d Objective: I&O/Vital Signs 08/13/21 08/13/21 08/13/21 08/13/21 00:00 01:00 01:00 02:16 Pulse 68 56 B/P (MAP) 108/53 (71) Pulse Ox 90 94 94 O2 Delivery Vapotherm Vapotherm Vapotherm O2 Flow Rate 35.00 35.00 75.00 FiO2 75 75 08/13/21 08/13/21 08/13/21 08/13/21 04:00 05:00 06:33 07:29 Pulse 80 60 Resp 20 B/P (MAP) 106/56 (73) Pulse Ox 92 94 93 O2 Delivery Vapotherm Vapotherm Vapotherm O2 Flow Rate 35.00 35.00 75.00 FiO2 75 75 08/13/21 08/13/21 08:05 08:28 Pulse 92 Resp 18 B/P (MAP) 112/74 (87) Pulse Ox 88 88 O2 Delivery Vapotherm Vapotherm O2 Flow Rate 35.00 75.00 FiO2 75 08/13/21 00:00 Intake Total 630 ml Output Total 5300 ml Balance -4670 ml Weight (Pounds): 295 Weight (Ounces): 14.4 Weight (Calculated Kilograms): 134.793190 Constitutional: AAO x 3, apparent distress, well-developed, well-nourished, other (obese) Respiratory: No accessory muscle use; other (bilateral coarse crackles and rhonchi over large airways; prolonged exp; diminished bs at the bases) Cardiovascular: regular rate-rhythm, S1 and S2, systolic murmur (soft ROBERTO at the cardiac base) Gastrointestional: No tender; soft; No guarding, No rebound; audible bowel sounds Extremities: other (reddish brown discoloration of the legs, thickening and flaking of the skin of both lower legs); No clubbing, No cyanosis; significant edema (bilateral, 3-4+ edema of both legs) Neurologic/Psychiatric: oriented x 3, other (moves all limbs equally) Skin: warm/dry, other (see under Extremities exam above) Results/Procedures: Labs Laboratory Tests 08/12/21 11:07: Blood Gas Puncture Site RIGHT RADIAL, Blood Gas Patient Temperature 36.6, Arterial Blood pH 7.37, Arterial Blood Partial Pressure CO2 42, Arterial Blood Partial Pressure O2 54L, Arterial Blood HCO3 24, Arterial Blood Total CO2 25.3, Arterial Blood Oxygen Saturation 83L, Arterial Blood Base Excess -0.6, Collin Test POSITIVE, Blood Gas Ventilator Setting YES, Blood Gas Inspired Oxygen 2 L 08/12/21 16:06: Troponin I 0.076H 08/12/21 22:05: Troponin I 0.049H 08/13/21 04:53: White Blood Count 9.8, Red Blood Count 4.14L, Hemoglobin 13.4, Hematocrit 44, Mean Corpuscular Volume 106H, Mean Corpuscular Hemoglobin 32, Mean Corpuscular Hemoglobin Concent 31L, Red Cell Distribution Width 15.4H, Platelet Count 175, Mean Platelet Volume 11.1, Immature Granulocyte % (Auto) 0, Neutrophils (%) (Auto) 93H, Lymphocytes (%) (Auto) 4L, Monocytes (%) (Auto) 3, Eosinophils (%) (Auto) 0, Basophils (%) (Auto) 0, Neutrophils # (Auto) 9.1H, Lymphocytes # (Auto) 0.4L, Monocytes # (Auto) 0.3, Eosinophils # (Auto) 0.0, Basophils # (Aut o) 0.0, Immature Granulocyte # (Auto) 0.0, Sodium Level 136, Potassium Level 4.2, Chloride Level 100, Carbon Dioxide Level 25, Anion Gap 11, Blood Urea Nitrogen 25H, Creatinine 1.07, Estimat Glomerular Filtration Rate 69, BUN/Creatinine Ratio 23, Glucose Level 179H, Calcium Level 8.9 Laboratory Tests 08/12/21 10:07 08/13/21 04:53 A/P: Assessment: Acute on chronic systolic HFrEF, NYHA III - IV, due to ischemic cardiomyopathy Chronic obstructive pulmonary disease due to tobaccoism, - Has h/o intermittent hypoxia for which he is on prn oxygen Obesity with obesity-hypoventilation syndrome - Sleep studies of 12/21/16: nocturnal hypoxemia, primary snoring without VIJI, paroxysmal narrow complex tachycardia Chronically mildly elevated troponin since 2019 H/O Severe anemia due to slow GI bleed. - Endoscopy by Dr Blackwell on 07/02/20: Reflux esophagitis stage II, small to moderate size hiatal hernia approximately 2 cm in size, moderate gastritis with prepyloric type 3 gastric ulcer with an overlying fibrin clot, less than 1 cm in size. No active bleeding. Chronic stage II external and internal hemorrhoids ICM - AICD in place - S/p removal of L-sided ICD and associated leads for device pocket infection in Dec 2013, and new leads and new R-sided device placemennt in Dec 2013, functioning normally per interrogation of 06-05-20 - Echo of 06/06/19: LVEF 35-40%, mod enlarged LA, RVSP 40 mmHg Coronary artery disease artery disease. - Last cath was on 04/26/18. It showed severe prox disease of LAD that was stented with Alp Xience 4x15. In the mid LAD there were patent overlapping stents (Butter Fat Tester 3.9v96aph Butter Fat Tester 3x24) and the 1st OM of LCX had a patent stent (Promus James 3.5x12). The RCA was dominant with mild plaques. LVEF was 40% there was anteroapical hypokinesis and mild elev of LVEDP - MPI of 12/21/17: anteroapical infarction with minimal raheem-infarct ischemia; anteroapical akinesis/dyskinesis and LVEF 39%, significant cardiomegaly Abnormal ECG on 12/08/16: - NSR with LBBB. ECG of 06/05/20 essentially unchanged Hyperlipidemia - being treated with statin therapy. Ortho - Degenerative joint disease and lumbago. 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
--- NOTE | 2021-08-13 11:19 | Diagnostic Imaging Report ---
PROCEDURE: CT angiography of the chest with contrast. TECHNIQUE: Multiple contiguous axial images were obtained through the chest after uneventful bolus administration of intravenous contrast. 3D reconstructed CTA MIP acquisitions were also performed. Auto Exposure Controls were utilized during the CT exam to meet ALARA standards for radiation dose reduction. INDICATION: Hypoxia. COMPARISON: 01/06/2019. FINDINGS: There is good opacification of the pulmonary arteries without intraluminal filling defect identified. There is atherosclerotic calcification of the coronary arteries and the thoracic aorta; however, no significant change is appreciated. There is extensive centrilobular emphysema throughout the lungs with prominent interstitial markings. Right basilar atelectasis and/or pneumonitis is again identified with mild right pleural fluid and/or thickening. There is no evidence of new mass. Mediastinal and right hilar adenopathy has not significantly changed. IMPRESSION: No CTA evidence of pulmonary embolism. Extensive background COPD is again identified with continued moderate mediastinal and right hilar adenopathy. Dictated by: Dictated on workstation # [id number]
--- NOTE | 2021-08-13 11:41 | History & Physical-Hospitalist ---
History of Present Illness HPI/Chief Complaint Osiel Hightower Jr is a 65-year-old male with past medical history of hypertension, hyperlipidemia, coronary artery disease, BPH, oxygen dependent COPD, who presented with shortness of breath. He reports that he has been having a cough productive of yellow sputum. He denies fevers and chills. He denies chest pain and palpitations. He has had leg swelling. He denies abdominal pain, nausea, vomiting, and diarrhea. He reports that he uses 10 L of oxygen at rest and 15 L with activity. Source: patient Exam Limitations: no limitations Date Seen 08/13/21 Time Seen by a Provider: 08:55 Attending Physician Juju Curiel MD PCP Jean-Claude Lopez MD Referring Physician Date of Admission Aug 12, 2021 at 12:00 Home Medications & Allergies Home Medications Reviewed patient Home Medication Reconciliation performed by pharmacy medication reconciliations certified technician and/or nursing. Patients Allergies have been reviewed. Allergies Allergies Coded Allergies quinine (Verified Allergy, Unknown, 06/06/19) Past Zjzkwip-Hwrkuh-Xtqcha Hx Patient Social History Tobacco Use?: No Smoking Status: Former Smoker Use of E-Cig and/or Vaping dev: No Substance use?: No Alcohol Use?: No Pt feels they are or have been: No Immunizations Up To Date First/Initial COVID19 Vaccinat: JANUARY 2021 Second COVID19 Vaccination Hosea: FEBRUARY 2021 Tetanus Booster (TDap): Unknown PED Vaccines UTD: No Seasonal Allergies Seasonal Allergies: Yes Current Status Advance Directives: No Communicates: Verbally Primary Language: [place] Preferred Spoken Language: [place] Is interpretation needed?: No Implanted or Applied Medical D: Pacemaker Past Medical History Surgeries: Cardiac, Coronary Stent, Defibrillator, Orthopedic COPD Currently Using CPAP: Yes Cardiomyopathy, Coronary Artery Disease, Heart Attack, Hypertension Neuropathy Benign Prostatic Hyperpl, Renal Failure Arthritis Did You Recieve Any Treatments: No Blood Disorders: No Family Medical History No Pertinent Family Hx Review of Systems Constitutional: no symptoms reported EENTM: no symptoms reported Respiratory: cough, phlegm, short of breath Cardiovascular: no symptoms reported Gastrointestinal: no symptoms reported Genitourinary: no symptoms reported Musculoskeletal: no symptoms reported Skin: no symptoms reported Psychiatric/Neurological: No Symptoms Reported Physical Exam Physical Exam Vital Signs Vital Signs - First Documented 08/12/21 10:31 FiO2 80 Capillary Refill : Height, Weight, BMI Height: 6'0.00" Weight: 295lbs. 14.4oz. 134.180905ps; 40.69 BMI Method:Stated General Appearance: No Apparent Distress, Obese HEENT: PERRL/EOMI, Pharynx Normal Neck: Normal Inspection, Supple Respiratory: Decreased Breath Sounds, Rhonci Cardiovascular: Regular Rate, Rhythm, No Murmur Gastrointestinal: Normal Bowel Sounds, Non Tender, Soft, Distended Extremity: Normal Inspection, Non Tender, Pedal Edema Neurologic/Psychiatric: Alert, Oriented x3, No Motor/Sensory Deficits, Normal Mood/Affect Skin: Normal Color, Warm/Dry Results Results/Procedures Labs Laboratory Tests 08/12/21 10:07 08/13/21 04:53 Patient resulted labs reviewed. Imaging: Reviewed Imaging Report Assessment/Plan Admission Diagnosis Acute on chronic heart failure with reduced ejection fraction Admission Status: Inpatient Order (span 2 midnights) Reason for Inpatient Admission: IV diuresis Assessment and Plan Acute on chronic heart failure with reduced ejection fraction Acute on chronic respiratory failure with hypoxia COPD with acute exacerbation Elevated troponin Requiring Vapotherm Chest x-ray consistent with fluid overload BNP elevated Procalcitonin within normal limits Troponin mildly elevated, trending down CT scan revealed no pulmonary embolism IV Lasix Monitor output Low sodium diet Cardiology consulted, appreciate assistance Steroids MAT protocol Hypertension Hyperlipidemia Coronary artery disease BPH Continue home meds Morbid obesity Clinically significant, no acute management needs DVT prophylaxis: Lovenox Diagnosis/Problems Diagnosis/Problems (1) Acute on chronic respiratory failure with hypoxemia Status: Acute (2) Acute congestive heart failure Status: Acute Qualifiers: Heart failure type: unspecified Qualified Codes: I50.9 - Heart failure, unspecified (3) Elevated troponin Status: Acute (4) COPD (chronic obstructive pulmonary disease) Status: Acute Qualifiers: COPD type: COPD with acute exacerbation Qualified Codes: J44.1 - Chronic obstructive pulmonary disease with (acute) exacerbation JUJU CURIEL MD Aug 13, 2021 11:41
[2021-08-13] MEDS ORDERED: SPIRONOLACTONE 25 MG (ALDACTONE) TAB PO ONE (11:45)
[2021-08-13 11:58] VITALS: BP 113/61
[2021-08-13] MEDS: methylPREDNISolone 40 MG/ML (Solu-MEDROL) VIAL IV SCH ×2 (11:59→17:23)
[2021-08-13 15:29] VITALS: BP 119/72
[2021-08-13] MEDS: TAMSULOSIN 0.4 MG (FLOMAX) CAP PO SCH (17:22)
[2021-08-13 20:00] VITALS: BP 108/58
[2021-08-14] VITALS (7 sets, daily range): BP systolic 96–140; BP diastolic 62–94
[2021-08-14] MEDS: methylPREDNISolone 40 MG/ML (Solu-MEDROL) VIAL IV SCH ×3 (00:05→17:01)
[2021-08-14] MEDS: oxyCODONE/APAP 10/325MG (PERCOCET 10) TABLET PO PRN ×4 (00:06→23:55)
[2021-08-14] MEDS: FUROSEMIDE 40 MG/4 ML INJ (LASIX) IV SCH ×2 (06:08→15:59)
[2021-08-14] MEDS: RT-ALBUTEROL/IPRATROPIUM 3 ML (DUONEB) VIAL INH SCH ×5 (06:47→21:21)
--- NOTE | 2021-08-14 08:55 | Progress Note - Cardiology ---
Cardiology SOAP Progress Note Objective: I&O/Vital Signs 08/14/21 08/14/21 08/14/21 08/14/21 06:36 06:47 06:52 07:00 Pulse 94 Pulse Ox 97 92 O2 Delivery Vapotherm Vapotherm O2 Flow Rate 35.00 35.00 30.00 65.00 FiO2 75 60 08/14/21 08/14/21 08/14/21 08/14/21 08:00 08:00 10:37 13:24 Temp 36.8 Pulse 88 86 Resp 20 B/P (MAP) 119/71 (87) Pulse Ox 90 91 O2 Delivery Vapotherm Vapotherm O2 Flow Rate 35.00 35.00 FiO2 65 65 08/14/21 08/14/21 13:27 14:48 Temp 36.7 Pulse 84 Resp 20 B/P (MAP) 128/70 (89) Pulse Ox 94 94 O2 Delivery Vapotherm O2 Flow Rate 30.00 35.00 65.00 FiO2 65 08/14/21 00:00 Intake Total 1000 ml Output Total 1875 ml Balance -875 ml Weight (Pounds): 295 Weight (Ounces): 14.4 Weight (Calculated Kilograms): 134.245733 Constitutional: AAO x 3, apparent distress, well-developed, well-nourished, other (obese) Respiratory: No accessory muscle use; other (bilateral coarse crackles and rhonchi over large airways; prolonged exp; diminished bs at the bases) Cardiovascular: regular rate-rhythm, S1 and S2, systolic murmur (soft ROBERTO at the cardiac base) Gastrointestional: No tender; soft; No guarding, No rebound; audible bowel sounds Extremities: other (reddish brown discoloration of the legs, thickening and flaking of the skin of both lower legs); No clubbing, No cyanosis; significant edema (bilateral, 3-4+ edema of both legs) Neurologic/Psychiatric: oriented x 3, other (moves all limbs equally) Skin: warm/dry, other (see under Extremities exam above) Results/Procedures: Labs Laboratory Tests 08/14/21 08:21: Sodium Level 136, Potassium Level 4.3, Chloride Level 99, Carbon Dioxide Level 25, Anion Gap 12, Blood Urea Nitrogen 25H, Creatinine 1.12, Estimat Glomerular Filtration Rate 66, BUN/Creatinine Ratio 22, Glucose Level 182H, Calcium Level 8.6, Magnesium Level 1.8 Microbiology 08/12/21 Blood Culture - Preliminary, Resulted No growth Procedures NAME: WHIT MORENO JR [facility] REC#: [id number] PT STATUS: ADM IN : 1955 PHYSICIAN: JUJU CURIEL MD ADMIT DATE: 08/12/21/[facility] Signed Date of Exam:08/13/21 CT ANGIO CHEST W PROCEDURE: CT angiography of the chest with contrast. TECHNIQUE: Multiple contiguous axial images were obtained through the chest after uneventful bolus administration of intravenous contrast. 3D reconstructed CTA MIP acquisitions were also performed. Auto Exposure Controls were utilized during the CT exam to meet ALARA standards for radiation dose reduction. INDICATION: Hypoxia. COMPARISON: 01/06/2019. FINDINGS: There is good opacification of the pulmonary arteries without intraluminal filling defect identified. There is atherosclerotic calcification of the coronary arteries and the thoracic aorta; however, no significant change is appreciated. There is extensive centrilobular emphysema throughout the lungs with prominent interstitial markings. Right basilar atelectasis and/or pneumonitis is again identified with mild right pleural fluid and/or thickening. There is no evidence of new mass. Mediastinal and right hilar adenopathy has not significantly changed. IMPRESSION: No CTA evidence of pulmonary embolism. Extensive background COPD is again identified with continued moderate mediastinal and right hilar adenopathy. Dictated by: Dictated on workstation # [id number] Dict: 08/13/21 1109 Trans: 08/13/21 1648 [id number] Interpreted by: SULEMA MULTANI MD Electronically signed by: SULEMA MULTANI MD 08/13/21 1648 A/P: Assessment: Acute on chronic systolic HFrEF, NYHA III - IV, due to ischemic cardiomyopathy 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 - Endoscopy by Dr Blackwell on 07/02/20: Reflux esophagitis stage II, small to moderate size hiatal hernia approximately 2 cm in size, moderate gastritis with prepyloric type 3 gastric ulcer with an overlying fibrin clot, less than 1 cm in size. No active bleeding. Chronic stage II external and internal hemorrhoids ICM - AICD in place - S/p removal of L-sided ICD and associated leads for device pocket infection in Dec 2013, and new leads and new R-sided device placemennt in Dec 2013, functioning normally per interrogation of 06-05-20 - Echo of 06/06/19: LVEF 35-40%, mod enlarged LA, RVSP 40 mmHg - Echo of 08-12-21: LVEF 40-45%; akinesis of the anteroseptal myocardium. Grade 2 diastolic dysfunction. RV cavity size in creased with normal wall thickness. LA is dilated. Mod TR. PASP 60-65 mmHg Coronary artery disease artery disease. - Last cath was on 04/26/18. It showed severe prox disease of LAD that was stented with Alp Xience 4x15. In the mid LAD there were patent overlapping stents (Dance Therapist [id number] Dance Therapist 3x24) and the 1st OM of LCX had a patent stent (Promus James 3.5x12). The RCA was dominant with mild plaques. LVEF was 40% there was anteroapical hypokinesis and mild elev of LVEDP - MPI of 12/21/17: anteroapical infarction with minimal raheem-infarct ischemia; anteroapical akinesis/dyskinesis and LVEF 39%, significant cardiomegaly Abnormal ECG on 12/08/16: - NSR with LBBB. ECG of 06/05/20 essentially unchanged Hyperlipidemia - being treated with statin therapy. Ortho - Degenerative joint disease and lumbago. CT spine of 02/05/17 (Dr Bolivar) has shown lumbar spondylosis and foraminal narrowing Chronic bilateral lower extremity edema - stable Mild AAA - measuring 3.6 cm nahum, along with mod stenosis of the R common iliac artery, on CT angio of 02/10/17 H/o chronic tobacco use - quit smoking in Nov 2016 Carotid dz - Mild bilat carotid art disease on carotid u/s of May 2020 H/o (Jul 2018) laryngeal CA, managed by pcp S/p all teeth removal in Sep 2018 Segmental pressures of June 12, 2020 showed no evidence of PAD Plan: * Continue iv diuretics to treat decompensated CHF * Low-dose enoxaparin for DVT prophylaxis * Beta-memo and EZEQUIEL-inhibitor to treat cardiomyopathy * Dual antiplatelet therapy because of troponin elevation and h/o CAD * Monitor labs closely * I discussed our management plan with him in detail COLT MARCOS Aug 14, 2021 08:55
[2021-08-14 08:58] LABS: CALCIUM 8.6 MG/DL (8.5-10.1); CREATININE SERUM 1.12 MG/DL (0.60-1.30); MAGNESIUM 1.8 MG/DL (1.6-2.4); POTASSIUM 4.3 MMOL/L (3.6-5.0)
[2021-08-14] MEDS: ASPIRIN 81 MG CHEW (CHILDREN'S ASA) PO SCH (09:40)
[2021-08-14] MEDS: lisINopril 5 MG (PRINIVIL) TABLET PO SCH (09:41)
[2021-08-14] MEDS: PANTOPRAZOLE 40 MG (PROTONIX) TAB PO SCH ×2 (09:41→20:09)
[2021-08-14] MEDS: CLOPIDOGREL 75 MG (PLAVIX) TABLET PO SCH (09:41)
[2021-08-14] MEDS: SPIRONOLACTONE 25 MG (ALDACTONE) TAB PO SCH (09:41)
[2021-08-14] MEDS: KCL 20 MEQ TAB (K-DUR) PO SCH (09:42)
--- NOTE | 2021-08-14 13:32 | Progress Note - Cardiology ---
Cardiology SOAP Progress Note Subjective: Palpitations this am, associated with some chest discomfort and shortness of breath. States has similar episodes at home No syncope Shortness of breath and palp have modestly improved Swelling of the leg persistent Denies n/v/d Gen malaise and weakness persistent Objective: I&O/Vital Signs 08/14/21 08/14/21 08/14/21 08/14/21 04:00 06:36 06:47 06:52 Pulse 77 94 Resp 20 B/P (MAP) 119/71 (87) Pulse Ox 94 97 92 O2 Delivery Vapotherm Vapotherm Vapotherm O2 Flow Rate 35.00 35.00 35.00 75.00 FiO2 75 60 08/14/21 08/14/21 08/14/21 08/14/21 07:00 08:00 08:00 10:37 Temp 36.8 Pulse 88 Resp 20 B/P (MAP) 119/71 (87) Pulse Ox 90 91 O2 Delivery Vapotherm Vapotherm O2 Flow Rate 30.00 35.00 35.00 65.00 FiO2 65 65 08/14/21 00:00 Intake Total 1000 ml Output Total 1875 ml Balance -875 ml Weight (Pounds): 295 Weight (Ounces): 14.4 Weight (Calculated Kilograms): 134.438966 Constitutional: AAO x 3, apparent distress, well-developed, well-nourished, other (obese) Respiratory: No accessory muscle use; other (bilateral coarse crackles and rhonchi over large airways; prolonged exp; diminished bs at the bases) Cardiovascular: regular rate-rhythm, S1 and S2, systolic murmur (soft ROBERTO at the cardiac base) Gastrointestional: No tender; soft; No guarding, No rebound; audible bowel sounds Extremities: other (reddish brown discoloration of the legs, thickening and flaking of the skin of both lower legs); No clubbing, No cyanosis; significant edema (bilateral, 3-4+ edema of both legs) Neurologic/Psychiatric: oriented x 3, other (moves all limbs equally) Skin: warm/dry, other (see under Extremities exam above) Results/Procedures: Labs Laboratory Tests 08/14/21 08:21: Sodium Level 136, Potassium Level 4.3, Chloride Level 99, Carbon Dioxide Level 25, Anion Gap 12, Blood Urea Nitrogen 25H, Creatinine 1.12, Estimat Glomerular Filtration Rate 66, BUN/Creatinine Ratio 22, Glucose Level 182H, Calcium Level 8.6, Magnesium Level 1.8 Microbiology 08/12/21 Blood Culture - Preliminary, Resulted No growth A/P: Assessment: PAF with RVR recorded on tele on 08/14/21 Acute on chronic systolic HFrEF, NYHA III - IV, due to ischemic cardiomyopathy 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 - Endoscopy by Dr Blackwell on 07/02/20: Reflux esophagitis stage II, small to moderate size hiatal hernia approximately 2 cm in size, moderate gastritis with prepyloric type 3 gastric ulcer with an overlying fibrin clot, less than 1 cm in size. No active bleeding. Chronic stage II external and internal hemorrhoids ICM - AICD in place - S/p removal of L-sided ICD and associated leads for device pocket infection in Dec 2013, and new leads and new R-sided device placemennt in Dec 2013, functioning normally per interrogation of 06-05-20 - Echo of 06/06/19: LVEF 35-40%, mod enlarged LA, RVSP 40 mmHg - Echo of 08-12-21: LVEF 40-45%; akinesis of the anteroseptal myocardium. Grade 2 diastolic dysfunction. RV cavity size in creased with normal wall thickness. LA is dilated. Mod TR. PASP 60-65 mmHg Coronary artery disease artery disease. - Last cath was on 04/26/18. It showed severe prox disease of LAD that was stented with Alp Xience 4x15. In the mid LAD there were patent overlapping stents (Hospitality Coordinator [id number] Hospitality Coordinator 3x24) and the 1st OM of LCX had a patent stent (Promus James 3.5x12). The RCA was dominant with mild plaques. LVEF was 40% there was anteroapical hypokinesis and mild elev of LVEDP - MPI of 12/21/17: anteroapical infarction with minimal raheem-infarct ischemia; anteroapical akinesis/dyskinesis and LVEF 39%, significant cardiomegaly Abnormal ECG on 12/08/16: - NSR with LBBB. ECG of 06/05/20 essentially unchanged Hyperlipidemia - being treated with statin therapy. Ortho - Degenerative joint disease and lumbago. CT spine of 02/05/17 (Dr Bolivar) has shown lumbar spondylosis and foraminal narrowing Chronic bilateral lower extremity edema - stable Mild AAA - measuring 3.6 cm nahum, along with mod stenosis of the R common iliac artery, on CT angio of 02/10/17 H/o chronic tobacco use - quit smoking in Nov 2016 Carotid dz - Mild bilat carotid art disease on carotid u/s of May 2020 H/o (Jul 2018) laryngeal CA, managed by pcp S/p all teeth removal in Sep 2018 Segmental pressures of June 12, 2020 showed no evidence of PAD Plan: * Add apixaban for stroke prophylaxis * Increase beta-memo for better rate control during episodes of A Fib * D/c enoxaparin because starting apixaban * Continue iv diuretics to treat decompensated CHF * Drinks about a gallon of water a day, he says, restrict to 1 L for now because of decomp CHF * D/c Plavix because starting apixaban. Continue ASA * Monitor labs closely JOSE CARLOS KENDALL MD FACP FAC CCDS Aug 14, 2021 13:32
[2021-08-14] MEDS: TAMSULOSIN 0.4 MG (FLOMAX) CAP PO SCH (17:01)
--- NOTE | 2021-08-14 17:11 | Progress Note - Hospitalist ---
Subjective HPI/CC On Admission Date Seen by Provider: Aug 14, 2021 Time Seen by Provider: 09:25 Osiel Hightower Jr is a 65-year-old male with past medical history of hypertension, hyperlipidemia, coronary artery disease, BPH, oxygen dependent COPD, who presented with shortness of breath. He reports that he has been having a cough productive of yellow sputum. He denies fevers and chills. He denies chest pain and palpitations. He has had leg swelling. He denies abdominal pain, nausea, vomiting, and diarrhea. He reports that he uses 10 L of oxygen at rest and 15 L with activity. Subjective/Events-last exam He is anxious this morning. He spilled his urinal. He needs to urinate. He is having some shortness of breath. He denies pain. Objective Exam Vital Signs Vital Signs Date Time Temp Pulse Resp B/P (MAP) Pulse Ox O2 Delivery O2 Flow Rate FiO2 08/14/21 16:58 36.4 90 18 140/94 (109) 94 35.00 65.00 08/14/21 14:48 Vapotherm 65 Capillary Refill : General Appearance: No Apparent Distress, Anxious, Obese Respiratory: Lungs Clear, No Respiratory Distress, Decreased Breath Sounds Cardiovascular: Regular Rate, Rhythm, No Murmur Gastrointestinal: Normal Bowel Sounds, Non Tender, Soft, Distended Extremity: Non Tender; No Inflammation; Pedal Edema Neurologic/Psychiatric: Alert, Oriented x3, No Motor/Sensory Deficits Skin: Normal Color, Warm/Dry Results/Procedures Lab Laboratory Tests 08/14/21 08:21 Patient resulted labs reviewed. Imaging: Reviewed Imaging Report Assessment/Plan Assessment and Plan Assess & Plan/Chief Complaint Acute on chronic heart failure with reduced ejection fraction and diastolic dysfunction Acute on chronic respiratory failure with hypoxia COPD with acute exacerbation Elevated troponin Atrial fibrillation Requiring Vapotherm, weaning as able Chest x-ray consistent with fluid overload Continue IV Lasix Add Metolazone Monitor output Fluid restriction Low sodium diet Cardiology consulted, appreciate assistance Increased Metoprolol Started on Eliquis Plavix stopped Continue Aspirin Steroids MAT protocol Hypertension Hyperlipidemia Coronary artery disease BPH Continue home meds Morbid obesity Clinically significant, no acute management needs DVT prophylaxis: already receiving therapeutic anticoagulation Diagnosis/Problems Diagnosis/Problems (1) Acute on chronic respiratory failure with hypoxemia Status: Acute (2) Acute congestive heart failure Status: Acute Qualifiers: Heart failure type: unspecified Qualified Codes: I50.9 - Heart failure, unspecified (3) Elevated troponin Status: Acute (4) COPD (chronic obstructive pulmonary disease) Status: Acute Qualifiers: COPD type: COPD with acute exacerbation Qualified Codes: J44.1 - Chronic obstructive pulmonary disease with (acute) exacerbation (5) Atrial fibrillation Status: Acute (6) Morbid obesity Status: Chronic JUJU CURIEL MD Aug 14, 2021 17:11
[2021-08-14] MEDS: APIXABAN 5 MG (ELIQUIS) TABLET PO SCH (20:08)
[2021-08-15] VITALS (8 sets, daily range): BP systolic 96–128; BP diastolic 58–87
[2021-08-15] MEDS: MICONAZOLE 2% POWDER (DESENEX AF) 90 GM TOP SCH ×3 (00:04→20:39)
[2021-08-15] MEDS: RT-ALBUTEROL/IPRATROPIUM 3 ML (DUONEB) VIAL INH SCH ×6 (03:00→22:10)
[2021-08-15] MEDS: methylPREDNISolone 40 MG/ML (Solu-MEDROL) VIAL IV SCH (05:58)
[2021-08-15] MEDS: FUROSEMIDE 40 MG/4 ML INJ (LASIX) IV SCH ×2 (05:58→16:27)
[2021-08-15 05:59] LABS: BASOPHILS % (AUTO) 0 % (0-10); EOSINOPHILS % (AUTO) 0 % (0-10); HEMATOCRIT 41 % (40-54); HEMOGLOBIN 12.7 g/dL (13.3-17.7); LYMPHOCYTES # (AUTO) 0.4 10^3/uL (1.0-4.0); LYMPHOCYTES % (AUTO) 4 % (12-44); MEAN CORPUSCULAR HEMOGLOBIN 32 pg (25-34); MEAN CORPUSCULAR HGB CONC 31 g/dL (32-36); MEAN CORPUSCULAR VOLUME 103 fL (80-99); MONOCYTES # (AUTO) 0.6 10^3/uL (0.0-1.0); MONOCYTES % (AUTO) 6 % (0-12); NEUTROPHILS # (AUTO) 8.7 10^3/uL (1.8-7.8); NEUTROPHILS % (AUTO) 90 % (42-75); PLATELET COUNT 167 10^3/uL (130-400); WHITE BLOOD COUNT 9.7 10^3/uL (4.3-11.0)
[2021-08-15] MEDS: oxyCODONE/APAP 10/325MG (PERCOCET 10) TABLET PO PRN ×3 (05:59→18:55)
[2021-08-15] MEDS: METOLAZONE 5 MG (ZAROXOLYN) TAB PO SCH (05:59)
[2021-08-15 06:15] LABS: POTASSIUM 4.3 MMOL/L (3.6-5.0)
[2021-08-15 06:16] LABS: CALCIUM 8.2 MG/DL (8.5-10.1)
[2021-08-15 06:20] LABS: CREATININE SERUM 0.91 MG/DL (0.60-1.30)
[2021-08-15 06:23] LABS: MAGNESIUM 2.1 MG/DL (1.6-2.4)
--- NOTE | 2021-08-15 08:59 | Progress Note - Cardiology ---
Cardiology SOAP Progress Note Subjective: Sitting in recliner at the bedside He reports he continues to feel SOB and that it has not improved much He does not report any CP or palpitations Pt took a personal phone call and completion of interview could not be done Objective: I&O/Vital Signs 08/15/21 08/15/21 08/15/21 08/15/21 04:00 06:15 07:00 07:06 Temp 36.2 Pulse 70 76 66 Resp 19 B/P (MAP) 122/78 (93) Pulse Ox 95 93 93 O2 Delivery Vapotherm Vapotherm O2 Flow Rate 35.00 35.00 65.00 FiO2 65 65 08/15/21 08/15/21 08/15/21 08/15/21 07:59 09:06 11:13 11:54 Temp 36.4 36.4 Pulse 84 71 Resp 14 21 B/P (MAP) 128/87 (101) 127/70 (89) Pulse Ox 93 94 93 95 O2 Delivery Vapotherm Vapotherm Vapotherm Vapotherm O2 Flow Rate 35.00 35.00 35.00 65.00 FiO2 65 65 08/15/21 13:00 Pulse 71 08/15/21 00:00 Intake Total 1000 ml Output Total 1000 ml Balance 0 ml Weight (Pounds): 295 Weight (Ounces): 14.4 Weight (Calculated Kilograms): 134.356112 Constitutional: AAO x 3, apparent distress, well-developed, well-nourished, oth er (obese) Respiratory: No accessory muscle use; other (bilateral coarse crackles and rhonchi over large airways; prolonged exp; diminished bs at the bases) Cardiovascular: regular rate-rhythm, S1 and S2, systolic murmur (soft ROBERTO at the cardiac base) Gastrointestional: No tender; soft; No guarding, No rebound; audible bowel sounds Extremities: other (reddish brown discoloration of the legs, thickening and flaking of the skin of both lower legs); No clubbing, No cyanosis; significant edema (bilateral, 3-4+ edema of both legs) Neurologic/Psychiatric: oriented x 3, other (moves all limbs equally) Skin: warm/dry, other (see under Extremities exam above) Results/Procedures: Labs Laboratory Tests 08/15/21 05:30: White Blood Count 9.7, Red Blood Count 3.98L, Hemoglobin 12.7L, Hematocrit 41, Mean Corpuscular Volume 103H, Mean Corpuscular Hemoglobin 32, Mean Corpuscular Hemoglobin Concent 31L, Red Cell Distribution Width 15.2H, Platelet Count 167, Mean Platelet Volume 11.0, Immature Granulocyte % (Auto) 0, Neutrophils (%) (Auto) 90H, Lymphocytes (%) (Auto) 4L, Monocytes (%) (Auto) 6, Eosinophils (%) (Auto) 0, Basophils (%) (Auto) 0, Neutrophils # (Auto) 8.7H, Lymphocytes # (Auto) 0.4L, Monocytes # (Auto) 0.6, Eosinophils # (Auto) 0.0, Basophils # (Auto) 0.0, Immature Granulocyte # (Auto) 0.0, Sodium Level 133L, Potassium Level 4.3, Chloride Level 96L, Carbon Dioxide Level 29, Anion Gap 8, Blood Urea Nitrogen 24H, Creatinine 0.91, Estimat Glomerular Filtration Rate 84, BUN/Creatinine Ratio 26, Glucose Level 160H, Calcium Level 8.2L, Magnesium Level 2.1 Microbiology 08/12/21 Blood Culture - Preliminary, Resulted No growth A/P: Assessment: PAF with RVR recorded on tele on 08/14/21 Acute on chronic systolic HFrEF, NYHA III - IV, due to ischemic cardiomyopathy 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 - Endoscopy by Dr Blackwell on 07/02/20: Reflux esophagitis stage II, small to moderate size hiatal hernia approximately 2 cm in size, moderate gastritis with prepyloric type 3 gastric ulcer with an overlying fibrin clot, less than 1 cm in size. No active bleeding. Chronic stage II external and internal hemorrhoids ICM - AICD in place - S/p removal of L-sided ICD and associated leads for device pocket infection in Dec 2013, and new leads and new R-sided device placemennt in Dec 2013, functioning normally per interrogation of 7-8-20 - Echo of 06/06/19: LVEF 35-40%, mod enlarged LA, RVSP 40 mmHg - Echo of 08-12-21: LVEF 40-45%; akinesis of the anteroseptal myocardium. Grade 2 diastolic dysfunction. RV cavity size in creased with normal wall thickness. LA is dilated. Mod TR. PASP 60-65 mmHg Coronary artery disease artery disease. - Last cath was on 04/26/18. It showed severe prox disease of LAD that was stented with Alp Xience 4x15. In the mid LAD there were patent overlapping stents (Home Health Assistant [id number] Home Health Assistant 3x24) and the 1st OM of LCX had a patent stent (Promus James 3.5x12). The RCA was dominant with mild plaques. LVEF was 40% there was anteroapical hypokinesis and mild elev of LVEDP - MPI of 12/21/17: anteroapical infarction with minimal raheem-infarct ischemia; anteroapical akinesis/dyskinesis and LVEF 39%, significant cardiomegaly Abnormal ECG on 12/08/16: - NSR with LBBB. ECG of 06/05/20 essentially unchanged Hyperlipidemia - being treated with statin therapy. Ortho - Degenerative joint disease and lumbago. CT spine of 02/05/17 (Dr Bolivar) has shown lumbar spondylosis and foraminal narrowing Chronic bilateral lower extremity edema - stable Mild AAA - measuring 3.6 cm nahum, along with mod stenosis of the R common iliac artery, on CT angio of 02/10/17 H/o chronic tobacco use - quit smoking in Nov 2016 Carotid dz - Mild bilat carotid art disease on carotid u/s of May 2020 H/o (Jul 2018) laryngeal CA, managed by pcp S/p all teeth removal in Sep 2018 Segmental pressures of June 12, 2020 showed no evidence of PAD Plan: * Continue apixaban for stroke prophylaxis * Continue current dose of beta-memo for better rate control during episodes of A Fib * Continue iv diuretics to treat decompensated CHF - metolazone added - continue aldactone * Drinks about a gallon of water a day, he says, advised fluid restriction to 1 L for now because of decomp CHF - pt became upset regarding fluid restriction and threatened to leave AMA if fluid restriction was continued - therefore it was discontinued yesterday; medical services has restarted his fluid restrictions - Dr. Hammer has spoken with the pt * D/c Plavix because starting apixaban. Continue ASA * Monitor labs closely COLT MARCOS Aug 15, 2021 08:59
[2021-08-15] MEDS: KCL 20 MEQ TAB (K-DUR) PO SCH (09:48)
[2021-08-15] MEDS: lisINopril 5 MG (PRINIVIL) TABLET PO SCH (09:48)
[2021-08-15] MEDS: PANTOPRAZOLE 40 MG (PROTONIX) TAB PO SCH ×2 (09:48→20:39)
[2021-08-15] MEDS: APIXABAN 5 MG (ELIQUIS) TABLET PO SCH ×2 (09:48→20:38)
[2021-08-15] MEDS: SPIRONOLACTONE 25 MG (ALDACTONE) TAB PO SCH (09:48)
[2021-08-15] MEDS: ASPIRIN 81 MG CHEW (CHILDREN'S ASA) PO SCH (09:49)
--- NOTE | 2021-08-15 10:34 | Physical Therapy Evaluation ---
PT Evaluation-General Medical Diagnosis Admission Date Aug 12, 2021 at 12:00 Medical Diagnosis: respiratory failure Onset Date: Aug 12, 2021 Therapy Diagnosis Therapy Diagnosis: debility/weakness Height/Weight Height (Feet): 6 Height (Inches): 0.00 Weight (Pounds): 295 Weight (Ounces): 14.4 Precautions Precautions/Isolations: Standard Precautions Referral Physician: Harman Reason for Referral: Evaluation/Treatment Medical History Pertinent Medical History: CAD, COPD (10L HF at rest/15L HF with activity), Heart Failure, HTN, FL, Renal Insufficiency, Smoking Additional Medical History morbid obesity Current History EMS from home secondary to SOA at 10L HF Reviewed History: Yes Social History Home: Single Level Current Living Status: Other Family Prior Prior Level of Function SCALE: Activities may be completed with or without assistive devices. 0-Spcbhftuzm-onwwwum completes the activity by him/herself with no assistance from a helper. 5-Set-up or Clean-up Assistance-helper sets up or cleans up; patient completes activity. [place] assists only prior to or following the activity. 4-Supervision or Touching Assistance-helper provides verbal cues and/or touching/steadying and/or contact guard assistance as patient completes activity. Assistance may be provided throughout the activity or intermittently. 3-Partial/Moderate Assistance-helper does LESS THAN HALF the effort. [place] lif ts, holds or supports trunk or limbs, but provides less than half the effort. 2-Substantial/Maximal Assistance-helper does MORE THAN HALF the effort. [place] lifts or holds trunk or limbs and provides more than half the effort. 0-Wxrcjdxwy-zbprdp does ALL the effort. Patient does none of the effort to complete the activity. Or, the assistance of 2 or more helpers is required for the patient to complete the activity. If activity was not attempted, code reason: 7-Patient Refused. 9-Not Applicable-not attempted and the patient did not perform the activity before the current illness, exacerbation or injury. 10-Not Attempted due to Environmental Limitations-(lack of equipment, weather restraints, etc.). 88-Not Attempted due to Medical Conditions or Safety Concerns. Bed Mobility: 6 Transfers (B,C,W/C): 6 Gait: 6 Stairs: 6 Indoor Mobility (Ambulation): Independent Stairs: Independent Prior Devices Use: Walker PT Evaluation-Current Subjective Patient agrees to PT. Objective Patient Orientation: Normal For Age Attachments: Oxygen (vapotherm) ROM/Strength ROM Lower Extremities bilateral LE WFL Strength Lower Extremities 4/5 grossly bilateral LE Integumentary/Posture Bowel Incontinence: No Bladder Incontinence: No Posture slight trunk flexed posture Neuromuscular (Tone, Coordination, Reflexes) grossly intact Sensory Vision: Functional Hearing: Impaired Transfers Sit to Stand (QC): 6 Gait Does the Patient Walk?: Yes Mode of Locomotion: Walk Anticipated Mode of Locomotion: Walk Walk 10 feet (QC): 6 Distance: 10' Gait Assistive Device: FWW Comments/Gait Description functional gait sequence/limited by Vapotherm tubing Balance Sitting Static: Normal Sitting Dynamic: Normal Standing Static: Normal Standing Dynamic: Normal Assessment/Needs 65 y.o. male, will be seen short term by skilled PT to address pulmonary function with functional mobility and therapeutic exercises. Rehab Potential: Guarded PT Floating Labor Gang Supervisor Goals Floating Labor Gang Supervisor Goals PT [facility] Goals Time Frame: Sep 06, 2021 Roll Left & Right (QC): 6 Sit to Lying (QC): 6 Lying-Sitting on Side/Bed(QC): 6 Sit to Stand (QC): 6 Chair/Eyu-hf-Caxte Xfer(QC): 6 Toilet Transfer (QC): 6 Does the Patient Walk: Yes Walk 10 feet (QC): 6 Walk 50ft with 2 Turns (QC): 6 PT Plan Problem List Problem List: Activity Tolerance, Functional Strength, Safety, Balance, Gait, Transfer, Bed Mobility Treatment/Plan Treatment Plan: Continue Plan of Care Treatment Plan: Bed Mobility, Education, Functional Activity Manish, Functional Strength, Gait, Safety, Therapeutic Exercise Treatment Duration: Sep 06, 2021 Frequency: 6 times per week Estimated Hrs Per Day: .25 hour per day Patient and/or Family Agrees t: Yes Time/GCodes Time In: 815 Time Out: 836 Total Billed Treatment Time: 21 Total Billed Treatment 1 visit EVModC 21 min JARVIS CUMMINGS PT Aug 15, 2021 10:34
--- NOTE | 2021-08-15 11:38 | Occupational Therapy Eval ---
OT Evaluation-General/PLF Medical Diagnosis Admission Date Aug 12, 2021 at 12:00 Medical Diagnosis: respiratory failure Onset Date: Aug 12, 2021 Therapy Diagnosis Therapy Diagnosis: decr self care, decr act tolerance, decr self care Height/Weight Height (Feet): 6 Height (Inches): 0.00 Weight (Pounds): 295 Weight (Ounces): 14.4 Precautions Precautions/Isolations: Standard Precautions Referral Physician: Harman Referral Reason: Evaluation/Treatment Medical History Pertinent Medical History: Atrial Fib, Arthritis, CAD, COPD (10L HF at rest/15L HF with activity), Heart Failure, HTN, MA, Neuropathy, Renal Insufficiency, Smoking Additional Medical History Hx throat cancer with radiation. Cardiac stents, defibrillator, cardiomegaly.Neuropathy in feet. BPH, renal failure. Morbid obesity. Lumbar spondylosis. Current History Admitted with SOB and coughing. Acute on chronic respiratory failure with hypoxia. Acute CHF. Heart failure. Reviewed History: Yes Social History Home: Single Level Current Living Status: Other Family (son and daughter in law) ADL-Prior Level of Function SCALE: Activities may be completed with or without assistive devices. 3-Vlfjnlwldi-nxzxncs completes the activity by him/herself with no assistance from a helper. 5-Set-up or Clean-up Assistance-helper sets up or cleans up; patient completes activity. [place] assists only prior to or following the activity. 4-Supervision or Touching Assistance-helper provides verbal cues and/or touching/steadying and/or contact guard assistance as patient completes activity . Assistance may be provided throughout the activity or intermittently. 3-Partial/Moderate Assistance-helper does LESS THAN HALF the effort. [place] lifts, holds or supports trunk or limbs, but provides less than half the effort. 2-Substantial/Maximal Assistance-helper does MORE THAN HALF the effort. [place] lifts or holds trunk or limbs and provides more than half the effort. 1-Jdpcweeqb-rysjyz does ALL the effort. Patient does none of the effort to complete the activity. Or, the assistance of 2 or more helpers is required for the patient to complete the activity. If activity was not attempted, code reason: 7-Patient Refused. 9-Not Applicable-not attempted and the patient did not perform the activity before the current illness, exacerbation or injury. 10-Not Attempted due to Environmental Limitations-(lack of equipment, weather restraints, etc.). 88-Not Attempted due to Medical Conditions or Safety Concerns. ADL PLOF Comments Pt reported that he is independent with basic self care at home. He has difficulty with hygiene after toileting but has a bidet. He can get his socks and shoes on but can't do toenail care. His family does the cleaning and cooking. He drives to his wound care appointments but his son khalil the truck. 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 Home oxygen use 10 L/min at rest, 15 L/min with activity Self Care: Independent Functional Cognition: Unknown OT Current Status Subjective Pt seen in room, up in recliner, agreeable to OT. No pain mentioned. Appearance Alert, cooperative Mental Status/Objective Attachments: Central Line, Oxygen (Vapotherm) Current Glasses/Contacts: Yes Hearing Aids: No ([place]) Dentures/Partials: No (No teeth) Hand Dominance: Right Upper Extremity ROM Grossly WFL bilat Upper Extremity Sensation Pt reports some numbness in hands at times Upper Extremity Strength Grossly 5/5 bilat Edema: LE edema, with wound care ADL-Treatment ADL-Current Pt reported that he is able to feed himself. Per PT eval, he can walk independently with no AD but is limited by Vapotherm. Nursing reported that he has difficulty with hygiene after toileting and has a rash in his groin. He reported that he uses a bidet at home for hygiene. He reported that he usually sleeps in a recliner. Pt left up in chair, all needs met. Eating (QC): 6 (pt report) Toileting Hygiene (QC): 3 (Help to wipe bottom when using BSC) Education OT Patient Education: Purpose of tx/functional activities, Rehab process Teaching Recipient: Patient Teaching Methods: Discussion Response to Teaching: Verbalize Understanding OT Prison Goals [place] Goals Time Frame: Aug 22, 2021 Oral Hygiene (QC): 5 Toileting Hygiene (QC): 5 (SBA) Additional Goals: 1-Demonstrate ADL Tasks, 2-Verbalize Understanding, 3- ImproveStrength/Manish 1=Demonstrate adherence to instructed precautions during ADL tasks. 2=Patient will verbalize/demonstrate understanding of assistive devices/modifications for ADL. 3=Patient will improve strength/tolerance for activity to enable patient to perform ADL's. Pt education in energy conservation techniques and verbalizes three techniques that he can use OT Education/Plan Problem List/Assessment Assessment: Decreased Activ Tolerance, Dependent Transfers (Decr functional mobility), Edema, Impaired Self-Care Skills Discharge Recommendations Plan Pt would benefit from skilled OT to increase his independence in basic self care to allow him to safely return home Plan/Recommendations: Continue POC Treatment Plan/Plan of Care Treatment,Training & Education: Yes Patient would benefit from OT for education, treatment and training to promote independence in ADL's, mobility, safety and/or upper extremity function for ADL's. Plan of Care: ADL Retraining, Functional Mobility, UE Funct Exercise/Act, OTHER (Energy conservation education) Treatment Duration: Aug 22, 2021 Frequency: 5 times per week Estimated Hrs Per Day: .25 hour per day Agreement: Yes Rehab Potential: Fair Time/GCodes Start Time: 11:00 Stop Time: 11:11 Total Time Billed (hr/min): 11 Billed Treatment Time visit, 11 minutes evaluation moderate intensity SLIME CORDERO OT Aug 15, 2021 11:38
--- NOTE | 2021-08-15 11:43 | Progress Note - Hospitalist ---
Subjective HPI/CC On Admission Date Seen by Provider: Aug 15, 2021 Time Seen by Provider: 08:50 Osiel Hightower Jr is a 65-year-old male with past medical history of hypertension, hyperlipidemia, coronary artery disease, BPH, oxygen dependent COPD, who presented with shortness of breath. He reports that he has been having a cough productive of yellow sputum. He denies fevers and chills. He denies chest pain and palpitations. He has had leg swelling. He denies abdominal pain, nausea, vomiting, and diarrhea. He reports that he uses 10 L of oxygen at rest and 15 L with activity. Subjective/Events-last exam He is still short of breath. His legs are still swollen. He was upset about his fluid restriction yesterday. He is willing to try an 1800 cc fluid restriction today. Objective Exam Vital Signs Vital Signs Date Time Temp Pulse Resp B/P (MAP) Pulse Ox O2 Delivery O2 Flow Rate FiO2 08/15/21 11:13 93 Vapotherm 35.00 65 08/15/21 07:59 36.4 84 14 128/87 (101) Capillary Refill : General Appearance: No Apparent Distress, Chronically ill, Obese Respiratory: No Respiratory Distress, Crackles, Decreased Breath Sounds Cardiovascular: Regular Rate, Rhythm, No Murmur Gastrointestinal: Normal Bowel Sounds, Non Tender, Soft, Distended, Hernia (umbilical) Extremity: No Inflammation; Pedal Edema, Swelling Neurologic/Psychiatric: Alert, Oriented x3 Skin: Normal Color, Warm/Dry Results/Procedures Lab Laboratory Tests 08/15/21 05:30 Patient resulted labs reviewed. Imaging: Reviewed Imaging Report Assessment/Plan Assessment and Plan Assess & Plan/Chief Complaint Acute on chronic heart failure with reduced ejection fraction and diastolic dysfunction Acute on chronic respiratory failure with hypoxia COPD with acute exacerbation Elevated troponin Atrial fibrillation Requiring Vapotherm, weaning as able Chest x-ray consistent with fluid overload Continue IV Lasix Added Metolazone Monitor output Fluid restriction 1800 cc Low sodium diet Cardiology consulted, appreciate assistance Continue Metoprolol and Eliquis Plavix stopped Continue Aspirin Steroids MAT protocol Hypertension Hyperlipidemia Coronary artery disease BPH Continue home meds Morbid obesity Clinically significant, no acute management needs DVT prophylaxis: already receiving therapeutic anticoagulation Diagnosis/Problems Diagnosis/Problems (1) Acute on chronic respiratory failure with hypoxemia Status: Acute (2) Acute congestive heart failure Status: Acute Qualifiers: Heart failure type: unspecified Qualified Codes: I50.9 - Heart failure, unspecified (3) Elevated troponin Status: Acute (4) COPD (chronic obstructive pulmonary disease) Status: Acute Qualifiers: COPD type: COPD with acute exacerbation Qualified Codes: J44.1 - Chronic obstructive pulmonary disease with (acute) exacerbation (5) Atrial fibrillation Status: Acute (6) Morbid obesity Status: Chronic JUJU CURIEL MD Aug 15, 2021 11:43
--- NOTE | 2021-08-15 11:55 | Wound Care Assessment ---
Wound Care Assessment Date Seen by Provider: Aug 15, 2021 Time Seen by Provider: 11:30 Chief Complaint Lower extremity wounds HPI Mr. Hightower is a 65 year old gentleman well known to the advanced wound care clinic for lower extremity ulcers. He is admitted to the hospital currently for CHF and COPD exacerbations with respiratory failure. I was asked to see Mr. Hightower as he feels his lower extremity wounds are worsening in the last several days since admission. The primary etiology of Mr. Hightower's wounds are related to his significant lower extremity edema (directly related to his cause of admission). He is requiring copious amounts of oxygen to maintain his sa turation. His wounds are likely worsening due to his inability to properly elevate his legs. Due to his significant SOA, when he is reclined, he is unable to breathe. As a result he is in a chair most of the day which has exacerbated his edema. His physicians have suggested a fluid restriction in addition to his IV diuretic therapy and he has been unable to comply. The dressings he was receiving in our clinic include acticoat flex 3 (this is not available outside of our clinic) with exudry (absorbant pad), barrier ointment to surrounding skin and covered with a 2 layer compression dressing (Coban Lite). In the hospital an appropriate substitute would be silver alginate hydrofiber with absorbant pad, barrier ointment (or calmoseptine) and EZEQUIEL wraps. He did have a Sigvaris boot delivered to his home on Wednesday and if his family were able to bring this up, this would aide somewhat in compression. The most important factor in his wound healing will be elevation (preferably above the heart for 2 hours tid and at HS). I'm not optimistic that Mr. Hightower will be able to comply with these recommendations with his current SOA. Past Medical History: Admits Heart Disease, Admits Myocardial Infarction 1. COPD 2. CHF 3. Implanted Defibrillator 4. CAD 5. Venous ulceration 6. Lyphedema 7. Morbid Obesity Smoking Status: Former Smoker Review of Systems General: No Chills, No Night Sweats, No Fatigue, No Malaise, No Appetite; Other (obesity) Pulmonary: Dyspnea Cardiovascular: Orthopnea, Edema Exam Vital Signs Date Time Temp Pulse Resp B/P (MAP) Pulse Ox O2 Delivery O2 Flow Rate FiO2 08/15/21 11:13 93 Vapotherm 35.00 65 08/15/21 07:59 36.4 84 14 128/87 (101) Capillary Refill : General Appearance: mild distress (due to SOA) Cardiovascular: other (3+ edema) Extremities: pedal edema (3+ lower ext.), swelling Skin Problem Location: other (several partial thickness wounds posterior/medial calf of right lower extremity, significant edema b/l LE, wounds with pink bed and copious serous drainage, numerous vesicles on surround skin) Skin Character: drainage, swelling Results Laboratory Tests 08/15/21 05:30: White Blood Count 9.7, Red Blood Count 3.98L, Hemoglobin 12.7L, Hematocrit 41, Mean Corpuscular Volume 103H, Mean Corpuscular Hemoglobin 32, Mean Corpuscular Hemoglobin Concent 31L, Red Cell Distribution Width 15.2H, Platelet Count 167, Mean Platelet Volume 11.0, Immature Granulocyte % (Auto) 0, Neutrophils (%) (Auto) 90H, Lymphocytes (%) (Auto) 4L, Monocytes (%) (Auto) 6, Eosinophils (%) (Auto) 0, Basophils (%) (Auto) 0, Neutrophils # (Auto) 8.7H, Lymphocytes # (Auto) 0.4L, Monocytes # (Auto) 0.6, Eosinophils # (Auto) 0.0, Basophils # (Auto) 0.0, Immature Granulocyte # (Auto) 0.0, Sodium Level 133L, Potassium Level 4.3, Chloride Level 96L, Carbon Dioxide Level 29, Anion Gap 8, Blood Urea Nitrogen 24H, Creatinine 0.91, Estimat Glomerular Filtration Rate 84, BU N/Creatinine Ratio 26, Glucose Level 160H, Calcium Level 8.2L, Magnesium Level 2.1 Microbiology 08/12/21 Blood Culture - Preliminary, Resulted No growth Assessment/Plan/Dx A: 1. CHF associated lower extremity edema 2. Venous ulcers of lower extremity P: 1. Elevate lower extremities above heart 2 hours tid and at HS as tolerated with patient's current respiratory/cardiac status 2. Continue silver Alginate hydrofiber to open wounds 3. Barrier ointment to surrounding skin to prevent maceration 4. Cover dressing with absorbant pads, roller gauze and EZEQUIEL wrap 5. Change dressings prn due to drainage. 6. If able to get home Sigvaris boot, apply this for additional compression NARA LUGO MD Aug 15, 2021 11:55
--- NOTE | 2021-08-15 14:34 | Progress Note - Cardiology ---
Cardiology SOAP Progress Note Subjective: Shortness of breath and gen swelling still present Gen malaise and weakness present No cp or palp or syncope No n/v/d Objective: I&O/Vital Signs 08/15/21 08/15/21 08/15/21 08/15/21 03:01 04:00 06:15 07:00 Pulse 70 76 Resp 19 B/P (MAP) 122/78 (93) Pulse Ox 94 95 93 O2 Delivery Vapotherm Vapotherm Vapotherm O2 Flow Rate 35.00 35.00 35.00 65.00 FiO2 65 65 08/15/21 08/15/21 08/15/21 08/15/21 07:06 07:59 09:06 11:13 Temp 36.2 36.4 Pulse 66 84 Resp 14 B/P (MAP) 128/87 (101) Pulse Ox 93 93 94 93 O2 Delivery Vapotherm Vapotherm Vapotherm O2 Flow Rate 35.00 35.00 35.00 65.00 FiO2 65 65 65 08/15/21 08/15/21 11:54 13:00 Temp 36.4 Pulse 71 71 Resp 21 B/P (MAP) 127/70 (89) Pulse Ox 95 O2 Delivery Vapotherm 08/15/21 00:00 Intake Total 1000 ml Output Total 1000 ml Balance 0 ml Weight (Pounds): 295 Weight (Ounces): 14.4 Weight (Calculated Kilograms): 134.870789 Constitutional: AAO x 3, apparent distress, well-developed, well-nourished, other (obese) Respiratory: No accessory muscle use; other (bilateral coarse crackles and rhonchi over large airways; prolonged exp; diminished bs at the bases) Cardiovascular: regular rate-rhythm, S1 and S2, systolic murmur (soft ROBERTO at the cardiac base) Gastrointestional: No tender; soft; No guarding, No rebound; audible bowel sounds Extremities: other (reddish brown discoloration of the legs, thickening and flaking of the skin of both lower legs); No clubbing, No cyanosis; significant edema (bilateral, 3-4+ edema of both legs) Neurologic/Psychiatric: oriented x 3, other (moves all limbs equally) Skin: warm/dry, other (see under Extremities exam above) Results/Procedures: Labs Laboratory Tests 08/15/21 05:30: White Blood Count 9.7, Red Blood Count 3.98L, Hemoglobin 12.7L, Hematocrit 41, Mean Corpuscular Volume 103H, Mean Corpuscular Hemoglobin 32, Mean Corpuscular Hemoglobin Concent 31L, Red Cell Distribution Width 15.2H, Platelet Count 167, Mean Platelet Volume 11.0, Immature Granulocyte % (Auto) 0, Neutrophils (%) (Auto) 90H, Lymphocytes (%) (Auto) 4L, Monocytes (%) (Auto) 6, Eosinophils (%) (Auto) 0, Basophils (%) (Auto) 0, Neutrophils # (Auto) 8.7H, Lymphocytes # (Auto) 0.4L, Monocytes # (Auto) 0.6, Eosinophils # (Auto) 0.0, Basophils # (Auto) 0.0, Immature Granulocyte # (Auto) 0.0, Sodium Level 133L, Potassium Level 4.3, Chloride Level 96L, Carbon Dioxide Level 29, Anion Gap 8, Blood Urea Nitrogen 24H, Creatinine 0.91, Estimat Glomerular Filtration Rate 84, BUN/Creatinine Ratio 26, Glucose Level 160H, Calcium Level 8.2L, Magnesium Level 2.1 Microbiology 08/12/21 Blood Culture - Preliminary, Resulted No growth Laboratory Tests 08/14/21 08:21 08/15/21 05:30 A/P: Assessment: Acute on chronic systolic HFrEF, NYHA III - IV, due to ischemic cardiomyopathy PAF with RVR recorded on tele on 08/14/21 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 - Endoscopy by Dr Blackwell on 07/02/20: Reflux esophagitis stage II, small to moderate size hiatal hernia approximately 2 cm in size, moderate gastritis with pr epyloric type 3 gastric ulcer with an overlying fibrin clot, less than 1 cm in size. No active bleeding. Chronic stage II external and internal hemorrhoids ICM - AICD in place - S/p removal of L-sided ICD and associated leads for device pocket infection in Dec 2013, and new leads and new R-sided device placemennt in Dec 2013, functioning normally per interrogation of 06-05-20 - Echo of 06/06/19: LVEF 35-40%, mod enlarged LA, RVSP 40 mmHg - Echo of 08-12-21: LVEF 40-45%; akinesis of the anteroseptal myocardium. Grade 2 diastolic dysfunction. RV cavity size in creased with normal wall thickness. LA is dilated. Mod TR. PASP 60-65 mmHg Coronary artery disease artery disease. - Last cath was on 04/26/18. It showed severe prox disease of LAD that was stented with Alp Xience 4x15. In the mid LAD there were patent overlapping stents (Bread Jockey [id number] Bread Jockey 3x24) and the 1st OM of LCX had a patent stent (Promus James 3.5x12). The RCA was dominant with mild plaques. LVEF was 40% there was anteroapical hypokinesis and mild elev of LVEDP - MPI of 12/21/17: anteroapical infarction with minimal raheem-infarct ischemia; anteroapical akinesis/dyskinesis and LVEF 39%, significant cardiomegaly Abnormal ECG on 12/08/16: - NSR with LBBB. ECG of 06/05/20 essentially unchanged Hyperlipidemia - being treated with statin therapy. Ortho - Degenerative joint disease and lumbago. CT spine of 02/05/17 (Dr Bolivar) has shown lumbar spondylosis and foraminal narrowing Chronic bilateral lower extremity edema - stable Mild AAA - measuring 3.6 cm nahum, along with mod stenosis of the R common iliac artery, on CT angio of 02/10/17 H/o chronic tobacco use - quit smoking in Nov 2016 Carotid dz - Mild bilat carotid art disease on carotid u/s of May 2020 H/o (Jul 2018) laryngeal CA, managed by pcp S/p all teeth removal in Sep 2018 Segmental pressures of June 12, 2020 showed no evidence of PAD Plan: * Continue apixaban for stroke prophylaxis * Continue current dose of beta-memo for better rate control during episodes of A Fib * Continue iv diuretics to treat decompensated CHF - metolazone added - continue aldactone * Drinks about a gallon of water a day, he says, advised fluid restriction to 1 L for now because of decomp CHF - pt became upset regarding fluid restriction and threatened to leave AMA if fluid restriction was continued - therefore it was discontinued yesterday; medical services has restarted his fluid restrictions - Dr. Hammer has spoken with the pt * D/c Plavix because starting apixaban. Continue ASA * Monitor labs closely JOSE CARLOS KENDALL MD FACP [facility] Aug 15, 2021 14:34
[2021-08-15] MEDS: TAMSULOSIN 0.4 MG (FLOMAX) CAP PO SCH (18:12)
[2021-08-16] MEDS: RT-ALBUTEROL/IPRATROPIUM 3 ML (DUONEB) VIAL INH SCH ×6 (01:37→21:45)
[2021-08-16] MEDS: oxyCODONE/APAP 10/325MG (PERCOCET 10) TABLET PO PRN ×4 (01:39→19:46)
[2021-08-16 03:03] VITALS: BP 106/63
[2021-08-16] MEDS: predniSONE 20 MG TAB PO SCH (06:37)
[2021-08-16] MEDS: FUROSEMIDE 40 MG/4 ML INJ (LASIX) IV SCH ×2 (06:37→17:16)
[2021-08-16] MEDS: METOLAZONE 5 MG (ZAROXOLYN) TAB PO SCH (06:37)
[2021-08-16 07:35] VITALS: BP 92/56
--- NOTE | 2021-08-16 08:33 | Physical Therapy Daily Note ---
PT Daily Note-Current Subjective Patient sitting in chair upon PT arrival, agreeable to treatment. Patient reports he "can do the physical part of walking, but then my air just goes down." Mental Status Patient Orientation: Person, Place, Time, Situation Attachments: Oxygen Transfers SCALE: Activities may be completed with or without assistive devices. 4-Gemlbzpyfy-axtcbch completes the activity by him/herself with no assistance from a helper. 5-Set-up or Clean-up Assistance-helper sets up or cleans up; patient completes activity. Sprakers assists only prior to or following the activity. 4-Supervision or Touching Assistance-helper provides verbal cues and/or touching/steadying and/or contact guard assistance as patient completes activity. Assistance may be provided throughout the activity or intermittently. 3-Partial/Moderate Assistance-helper does LESS THAN HALF the effort. Sprakers lifts, holds or supports trunk or limbs, but provides less than half the effort. 2-Substantial/Maximal Assistance-helper does MORE THAN HALF the effort. Sprakers lifts or holds trunk or limbs and provides more than half the effort. 1-Ozxzynjuf-qrehlg does ALL the effort. Patient does none of the effort to complete the activity. Or, the assistance of 2 or more helpers is required for the patient to complete the activity. If activity was not attempted, code reason: 7-Patient Refused. 9-Not Applicable-not attempted and the patient did not perform the activity before the current illness, exacerbation or injury. 10-Not Attempted due to Environmental Limitations-(lack of equipment, weather restraints, etc.). 88-Not Attempted due to Medical Conditions or Safety Concerns. Sit to Stand (QC): 5 Chair/Ddn-ch-Jamtx Xfer(QC): 5 Toilet Transfer (QC): 5 Gait Training Does the Patient Walk?: Yes Distance: 64 ft. Walk 10 feet (QC): 5 Walk 50 ft with 2 Turns(QC): 5 Patient tends to lean too far forwards onto FWW, keeps the FWW too far from his body. This makes turns increasingly difficult especially when he begins to fatigue. Assessment Current Status: Fair Progress Patient demonstrates improved gait distance, however decline in posture, gait pattern and safety with increased distance. Patient O2 declines significantly a fter sitting to 76%. O2 monitored during gait and remained at 93% throughout. Within 2-4 minutes O2 sats had returned to 90%. Patient in chair post treatment with all needs met, nursing notified, call light in hand. PT Snf Goals Corrosion Prevention Metal Sprayer Goals PT Snf Goals Time Frame: Sep 06, 2021 Roll Left & Right (QC): 6 Sit to Lying (QC): 6 Lying-Sitting on Side/Bed(QC): 6 Sit to Stand (QC): 6 Chair/Ufy-ml-Ebxgp Xfer(QC): 6 Toilet Transfer (QC): 6 Does the Patient Walk: Yes Walk 10 feet (QC): 6 Walk 50ft with 2 Turns (QC): 6 PT Plan Treatment/Plan Treatment Plan: Continue Plan of Care Treatment Plan: Bed Mobility, Education, Functional Activity Manish, Functional Strength, Gait, Safety, Therapeutic Exercise Treatment Duration: Sep 06, 2021 Frequency: 6 times per week Estimated Hrs Per Day: .25 hour per day Patient and/or Family Agrees t: Yes Safety Risks/Education Patient Education: Gait Training Teaching Recipient: Patient Teaching Methods: Demonstration, Discussion Response to Teaching: Verbalize Understanding, Reinforcement Needed Time/GCodes Time In: 810 Time Out: 825 Total Billed Treatment Time: 15 Total Billed Treatment Visit, Gait ROBERT MAI PT Aug 16, 2021 08:33
[2021-08-16] MEDS: ASPIRIN 81 MG CHEW (CHILDREN'S ASA) PO SCH (08:36)
[2021-08-16] MEDS: APIXABAN 5 MG (ELIQUIS) TABLET PO SCH ×2 (08:36→21:16)
[2021-08-16] MEDS: KCL 20 MEQ TAB (K-DUR) PO SCH (08:36)
[2021-08-16] MEDS: PANTOPRAZOLE 40 MG (PROTONIX) TAB PO SCH ×2 (08:36→21:16)
[2021-08-16] MEDS: lisINopril 5 MG (PRINIVIL) TABLET PO SCH ×2 (08:36→09:52)
[2021-08-16] MEDS: MICONAZOLE 2% POWDER (DESENEX AF) 90 GM TOP SCH ×2 (08:37→21:17)
[2021-08-16] MEDS: SPIRONOLACTONE 25 MG (ALDACTONE) TAB PO SCH (08:37)
[2021-08-16 08:57] LABS: CALCIUM 8.3 MG/DL (8.5-10.1)
[2021-08-16 09:01] LABS: CREATININE SERUM 1.08 MG/DL (0.60-1.30)
[2021-08-16 09:03] LABS: MAGNESIUM 2.1 MG/DL (1.6-2.4)
[2021-08-16 11:15] VITALS: BP 118/65
--- NOTE | 2021-08-16 12:21 | Progress Note - Hospitalist ---
Subjective HPI/CC On Admission Date Seen by Provider: Aug 16, 2021 Time Seen by Provider: 10:25 Osiel Hightower Jr is a 65-year-old male with past medical history of hypertension, hyperlipidemia, coronary artery disease, BPH, oxygen dependent COPD, who presented with shortness of breath. He reports that he has been having a cough productive of yellow sputum. He denies fevers and chills. He denies chest pain and palpitations. He has had leg swelling. He denies abdominal pain, nausea, vomiting, and diarrhea. He reports that he uses 10 L of oxygen at rest and 15 L with activity. Subjective/Events-last exam He is feeling a little better today. He is still short of breath with activity. He still has swelling in his legs. He has been able to tolerate the fluid restriction so far. Objective Exam Vital Signs Vital Signs Date Time Temp Pulse Resp B/P (MAP) Pulse Ox O2 Delivery O2 Flow Rate FiO2 08/16/21 11:15 36.3 78 22 118/65 (82) 93 Vapotherm 35.00 55.00 08/16/21 10:35 55 Capillary Refill : General Appearance: No Apparent Distress, Chronically ill, Obese Respiratory: No Respiratory Distress, Decreased Breath Sounds, Wheezing Cardiovascular: Regular Rate, Rhythm, No Murmur Gastrointestinal: Normal Bowel Sounds, Non Tender, Soft, Distended, Hernia Extremity: No Inflammation; Pedal Edema, Swelling, Other (Legs are wrapped with Phil bandages) Neurologic/Psychiatric: Alert, Oriented x3, Normal Mood/Affect, Motor Weakness Skin: Normal Color, Warm/Dry Results/Procedures Lab Laboratory Tests 08/16/21 08:39 Patient resulted labs reviewed. Imaging: Reviewed Imaging Report Assessment/Plan Assessment and Plan Assess & Plan/Chief Complaint Acute on chronic heart failure with reduced ejection fraction and diastolic dysfunction Acute on chronic respiratory failure with hypoxia COPD with acute exacerbation Elevated troponin Atrial fibrillation Requiring Vapotherm, weaning as able Chest x-ray consistent with fluid overload Continue IV Lasix Continue metolazone Monitor output, down ~12 L since admission Fluid restriction 1800 cc Low sodium diet Cardiology consulted, appreciate assistance Continue Metoprolol and Eliquis Plavix stopped Continue Aspirin Steroids MAT protocol Hypertension Hyperlipidemia Coronary artery disease BPH Continue home meds Morbid obesity Clinically significant, no acute management needs DVT prophylaxis: already receiving therapeutic anticoagulation Diagnosis/Problems Diagnosis/Problems (1) Acute on chronic respiratory failure with hypoxemia Status: Acute (2) Acute congestive heart failure Status: Acute Qualifiers: Heart failure type: unspecified Qualified Codes: I50.9 - Heart failure, unspecified (3) Elevated troponin Status: Acute (4) COPD (chronic obstructive pulmonary disease) Status: Acute Qualifiers: COPD type: COPD with acute exacerbation Qualified Codes: J44.1 - Chronic obstructive pulmonary disease with (acute) exacerbation (5) Atrial fibrillation Status: Acute (6) Morbid obesity Status: Chronic JUJU CURIEL MD Aug 16, 2021 12:21
[2021-08-16 16:00] VITALS: BP 124/73
[2021-08-16] MEDS: TAMSULOSIN 0.4 MG (FLOMAX) CAP PO SCH (17:16)
[2021-08-16 20:00] VITALS: BP 120/76
[2021-08-16 23:49] VITALS: BP 105/61
[2021-08-17] MEDS: oxyCODONE/APAP 10/325MG (PERCOCET 10) TABLET PO PRN ×4 (00:58→19:56)
[2021-08-17] MEDS: RT-ALBUTEROL/IPRATROPIUM 3 ML (DUONEB) VIAL INH SCH ×5 (02:19→18:35)
[2021-08-17 04:09] VITALS: BP 106/66
[2021-08-17] MEDS: predniSONE 20 MG TAB PO SCH (06:25)
[2021-08-17] MEDS: METOLAZONE 5 MG (ZAROXOLYN) TAB PO SCH (06:25)
[2021-08-17] MEDS: FUROSEMIDE 40 MG/4 ML INJ (LASIX) IV SCH (06:25)
[2021-08-17 08:26] VITALS: BP 114/69
[2021-08-17 08:41] LABS: POTASSIUM 4.3 MMOL/L (3.6-5.0)
[2021-08-17 08:42] LABS: CALCIUM 8.6 MG/DL (8.5-10.1)
[2021-08-17 08:47] LABS: CREATININE SERUM 1.25 MG/DL (0.60-1.30)
[2021-08-17] MEDS: APIXABAN 5 MG (ELIQUIS) TABLET PO SCH ×2 (09:23→19:55)
[2021-08-17] MEDS: lisINopril 5 MG (PRINIVIL) TABLET PO SCH (09:23)
[2021-08-17] MEDS: PANTOPRAZOLE 40 MG (PROTONIX) TAB PO SCH ×2 (09:23→19:55)
[2021-08-17] MEDS: SPIRONOLACTONE 25 MG (ALDACTONE) TAB PO SCH (09:23)
[2021-08-17] MEDS: ASPIRIN 81 MG CHEW (CHILDREN'S ASA) PO SCH (09:23)
[2021-08-17] MEDS: KCL 20 MEQ TAB (K-DUR) PO SCH (09:23)
[2021-08-17] MEDS: MICONAZOLE 2% POWDER (DESENEX AF) 90 GM TOP SCH ×2 (09:26→19:57)
[2021-08-17 12:02] VITALS: BP 105/64
--- NOTE | 2021-08-17 12:13 | Progress Note - Hospitalist ---
Subjective HPI/CC On Admission Date Seen by Provider: Aug 17, 2021 Time Seen by Provider: 10:55 Osiel Hightower Jr is a 65-year-old male with past medical history of hypertension, hyperlipidemia, coronary artery disease, BPH, oxygen dependent COPD, who presented with shortness of breath. He reports that he has been having a cough productive of yellow sputum. He denies fevers and chills. He denies chest pain and palpitations. He has had leg swelling. He denies abdominal pain, nausea, vomiting, and diarrhea. He reports that he uses 10 L of oxygen at rest and 15 L with activity. Subjective/Events-last exam He is still short of breath with activity. He has been urinating a lot. He has been trying to be adherent with his fluid restriction. He is having trouble with the potassium pills. Objective Exam Vital Signs Vital Signs Date Time Temp Pulse Resp B/P (MAP) Pulse Ox O2 Delivery O2 Flow Rate FiO2 08/17/21 12:02 36.1 84 20 105/64 (78) 93 Vapotherm 30.00 55.00 08/17/21 11:02 55 Capillary Refill : General Appearance: No Apparent Distress, Obese Respiratory: No Respiratory Distress, Decreased Breath Sounds Cardiovascular: Regular Rate, Rhythm, No Edema, No Murmur Gastrointestinal: Normal Bowel Sounds, Non Tender, Soft, Distended, Hernia Extremity: No Inflammation; Pedal Edema, Swelling Neurologic/Psychiatric: Alert, Oriented x3, No Motor/Sensory Deficits, Normal Mood/Affect Skin: Normal Color, Warm/Dry Results/Procedures Lab Laboratory Tests 08/17/21 08:23 Patient resulted labs reviewed. Imaging: Reviewed Imaging Report Assessment/Plan Assessment and Plan Assess & Plan/Chief Complaint Acute on chronic heart failure with reduced ejection fraction and diastolic dysfunction Acute on chronic respiratory failure with hypoxia COPD with acute exacerbation Elevated troponin Atrial fibrillation Requiring Vapotherm, weaning as able Chest x-ray consistent with fluid overload Creatinine trending up Decrease IV Lasix Hold Metolazone Monitor output, down ~16 L since admission Fluid restriction 1800 cc Low sodium diet Cardiology consulted, appreciate assistance Continue Metoprolol and Eliquis Plavix stopped Continue Aspirin Steroids MAT protocol Hypertension Hyperlipidemia Coronary artery disease BPH Continue home meds Morbid obesity Clinically significant, no acute management needs DVT prophylaxis: already receiving therapeutic anticoagulation Diagnosis/Problems Diagnosis/Problems (1) Acute on chronic respiratory failure with hypoxemia Status: Acute (2) Acute congestive heart failure Status: Acute Qualifiers: Heart failure type: unspecified Qualified Codes: I50.9 - Heart failure, unspecified (3) Elevated troponin Status: Acute (4) COPD (chronic obstructive pulmonary disease) Status: Acute Qualifiers: COPD type: COPD with acute exacerbation Qualified Codes: J44.1 - Chronic obstructive pulmonary disease with (acute) exacerbation (5) Atrial fibrillation Status: Acute Qualifiers: Atrial fibrillation type: paroxysmal Qualified Codes: I48.0 - Paroxysmal atrial fibrillation (6) Morbid obesity Status: Chronic JUJU CURIEL MD Aug 17, 2021 12:13
[2021-08-17 16:00] VITALS: BP 127/62
[2021-08-17] MEDS: TAMSULOSIN 0.4 MG (FLOMAX) CAP PO SCH (17:44)
[2021-08-17 20:00] VITALS: BP 107/56
[2021-08-18] VITALS: BP 115/65
[2021-08-18] MEDS: RT-ALBUTEROL/IPRATROPIUM 3 ML (DUONEB) VIAL INH SCH ×7 (02:09→21:33)
[2021-08-18 04:00] VITALS: BP 102/62
[2021-08-18] MEDS ORDERED: FUROSEMIDE 40 MG/4 ML INJ (LASIX) ONE (04:38)
[2021-08-18] MEDS: predniSONE 20 MG TAB PO SCH (05:31)
[2021-08-18] MEDS: oxyCODONE/APAP 10/325MG (PERCOCET 10) TABLET PO PRN ×2 (05:31→19:53)
[2021-08-18 06:10] LABS: BASOPHILS % (AUTO) 0 % (0-10); EOSINOPHILS # (AUTO) 0.3 10^3/uL (0.0-0.3); EOSINOPHILS % (AUTO) 3 % (0-10); HEMATOCRIT 45 % (40-54); HEMOGLOBIN 14.5 g/dL (13.3-17.7); LYMPHOCYTES # (AUTO) 1.4 10^3/uL (1.0-4.0); LYMPHOCYTES % (AUTO) 13 % (12-44); MEAN CORPUSCULAR HEMOGLOBIN 32 pg (25-34); MEAN CORPUSCULAR HGB CONC 32 g/dL (32-36); MEAN CORPUSCULAR VOLUME 100 fL (80-99); MEAN PLATELET VOLUME 11.2 fL (9.0-12.2); MONOCYTES % (AUTO) 9 % (0-12); NEUTROPHILS # (AUTO) 8.1 10^3/uL (1.8-7.8); NEUTROPHILS % (AUTO) 75 % (42-75); PLATELET COUNT 189 10^3/uL (130-400); WHITE BLOOD COUNT 10.8 10^3/uL (4.3-11.0)
[2021-08-18 06:40] LABS: POTASSIUM 4.8 MMOL/L (3.6-5.0)
[2021-08-18 06:46] LABS: CREATININE SERUM 1.17 MG/DL (0.60-1.30)
[2021-08-18] MEDS ORDERED: FUROSEMIDE 40 MG/4 ML INJ (LASIX) IV SCH (07:00)
[2021-08-18 08:00] VITALS: BP 92/51
--- NOTE | 2021-08-18 08:30 | Progress Note - Cardiology ---
Cardiology SOAP Progress Note Subjective: Sitting up in recliner at the bedside States he feels his breathing is much better today No c/o CP C/O feeling tired this morning Objective: I&O/Vital Signs 08/18/21 08/19/21 08/19/21 08/19/21 21:33 00:00 01:00 01:58 Temp 36.2 Pulse 76 78 Resp 18 B/P (MAP) 108/59 (75) Pulse Ox 93 92 91 O2 Delivery High Flow N/C High Flow N/C High Flow N/C O2 Flow Rate 15.00 15.00 15.00 08/19/21 08/19/21 04:00 06:52 Temp 36.0 Pulse 65 Resp 18 B/P (MAP) 99/54 (69) Pulse Ox 93 92 O2 Delivery High Flow N/C High Flow N/C O2 Flow Rate 15.00 15.00 08/19/21 00:00 Intake Total 1220 ml Output Total 2900 ml Balance -1680 ml Weight (Pounds): 295 Weight (Ounces): 14.4 Weight (Calculated Kilograms): 134.765491 Constitutional: AAO x 3, apparent distress, well-developed, well-nourished, other (obese) Respiratory: No accessory muscle use; other (bilateral coarse crackles and rhonchi over large airways; prolonged exp; diminished bs at the bases) Cardiovascular: regular rate-rhythm, S1 and S2, systolic murmur (soft ROBERTO at the cardiac base) Gastrointestional: No tender; soft; No guarding, No rebound; audible bowel sounds Extremities: other (reddish brown discoloration of the legs, thickening and flaking of the skin of both lower legs); No clubbing, No cyanosis; significant edema (bilateral, 3-4+ edema of both legs) Neurologic/Psychiatric: oriented x 3, other (moves all limbs equally) Skin: warm/dry, other (see under Extremities exam above) Results/Procedures: Labs Laboratory Tests 08/19/21 06:10: Sodium Level 130L, Potassium Level 4.5, Chloride Level 85L, Carbon Dioxide Level 32, Anion Gap 13, Blood Urea Nitrogen 42H, Creatinine 1.22, Estimat Glomerular Filtration Rate 60, BUN/Creatinine Ratio 34, Glucose Level 107H, Calcium Level 8.3L Microbiology 08/12/21 Blood Culture - Final, Complete No growth A/P: Assessment: Acute on chronic systolic HFrEF, NYHA III - IV, due to ischemic cardiomyopathy PAF with RVR recorded on tele on 08/14/21 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 - Endoscopy by Dr Blackwell on 07/02/20: Reflux esophagitis stage II, small to moderate size hiatal hernia approximately 2 cm in size, moderate gastritis with prepyloric type 3 gastric ulcer with an overlying fibrin clot, less than 1 cm in size. No active bleeding. Chronic stage II external and internal hemorrhoids ICM - AICD in place - S/p removal of L-sided ICD and associated leads for device pocket infection in Dec 2013, and new leads and new R-sided device placemennt in Dec 2013, functioning normally per interrogation of 06-05-20 - Echo of 06/06/19: LVEF 35-40%, mod enlarged LA, RVSP 40 mmHg - Echo of 08-12-21: LVEF 40-45%; akinesis of the anteroseptal myocardium. Grade 2 diastolic dysfunction. RV cavity size in creased with normal wall thickness. LA is dilated. Mod TR. PASP 60-65 mmHg Coronary artery disease artery disease. - Last cath was on 04/26/18. It showed severe prox disease of LAD that was stented with Alp Xience 4x15. In the mid LAD there were patent overlapping stents (Senior Controller [id number] Senior Controller 3x24) and the 1st OM of LCX had a patent stent (Promus James 3.5x12). The RCA was dominant with mild plaques. LVEF was 40% there was anteroapical hypokinesis and mild elev of LVEDP - MPI of 12/21/17: anteroapical infarction with minimal raheem-infarct ischemia; anteroapical akinesis/dyskinesis and LVEF 39%, significant cardiomegaly Abnormal ECG on 12/08/16: - NSR with LBBB. ECG of 06/05/20 essentially unchanged Hyperlipidemia - being treated with statin therapy. Ortho - Degenerative joint disease and lumbago. CT spine of 02/05/17 (Dr Bolivar) has shown lumbar spondylosis and foraminal narrowing Chronic bilateral lower extremity edema - stable Mild AAA - measuring 3.6 cm nahum, along with mod stenosis of the R common iliac artery, on CT angio of 02/10/17 H/o chronic tobacco use - quit smoking in Nov 2016 Carotid dz - Mild bilat carotid art disease on carotid u/s of May 2020 H/o (Jul 2018) laryngeal CA, managed by pcp S/p all teeth removal in Sep 2018 Segmental pressures of June 12, 2020 showed no evidence of PAD Plan: * Continue apixaban for stroke prophylaxis * Continue current dose of beta-memo for better rate control during episodes of A Fib * Change iv diuretics to oral, continue Aldactone * Drinks about a gallon of water a day, he says, advised fluid restriction to 1 L for now because of decomp CHF - pt became upset regarding fluid restriction and threatened to leave AMA if fluid restriction was continued - therefore it was discontinued yesterday; medical services has restarted his fluid restrictions - Dr. Hammer has spoken with the pt * Continue ASA * Monitor labs closely COLT MARCOS Aug 18, 2021 08:30
[2021-08-18] MEDS: MICONAZOLE 2% POWDER (DESENEX AF) 90 GM TOP SCH ×2 (09:00→19:50)
[2021-08-18] MEDS: lisINopril 5 MG (PRINIVIL) TABLET PO SCH (09:14)
[2021-08-18] MEDS: ASPIRIN 81 MG CHEW (CHILDREN'S ASA) PO SCH (09:14)
[2021-08-18] MEDS: APIXABAN 5 MG (ELIQUIS) TABLET PO SCH ×2 (09:14→19:49)
[2021-08-18] MEDS: KCL 20 MEQ TAB (K-DUR) PO SCH (09:14)
[2021-08-18] MEDS: SPIRONOLACTONE 25 MG (ALDACTONE) TAB PO SCH (09:14)
[2021-08-18] MEDS: PANTOPRAZOLE 40 MG (PROTONIX) TAB PO SCH ×2 (09:14→19:49)
--- NOTE | 2021-08-18 10:08 | Physical Therapy Progress Note ---
Therapy Progress Note Patient adamantly declined PT stating, "I'm tired and I can do things myself." PT will attempt tomorrow. 1 ref ([phone]) JARVIS CUMMINGS PT Aug 18, 2021 10:08
--- NOTE | 2021-08-18 10:24 | Progress Note - Hospitalist ---
Subjective HPI/CC On Admission Date Seen by Provider: Aug 18, 2021 Time Seen by Provider: 10:17 Osiel Hightower Jr is a 65-year-old male with past medical history of hypertension, hyperlipidemia, coronary artery disease, BPH, oxygen dependent COPD, who presented with shortness of breath. He reports that he has been having a cough productive of yellow sputum. He denies fevers and chills. He denies chest pain and palpitations. He has had leg swelling. He denies abdominal pain, nausea, vomiting, and diarrhea. He reports that he uses 10 L of oxygen at rest and 15 L with activity. Subjective/Events-last exam Pt reports feeling better today. Breathing is about his baseline but is on Vapotherm still. Confirmed that he wears 15lpm continuously at home. We discussed his diuresis and significant improvement. He is hopeful to get out of the hospital soon so he can get back to wound care. Objective Exam Vital Signs Vital Signs Date Time Temp Pulse Resp B/P (MAP) Pulse Ox O2 Delivery O2 Flow Rate FiO2 08/18/21 08:00 35.8 73 18 92/51 (65) 92 Vapotherm 30.00 55.00 08/18/21 06:49 55 Capillary Refill : General Appearance: No Apparent Distress, Chronically ill, Obese Respiratory: Decreased Breath Sounds, Other (on vapotherm) Cardiovascular: Regular Rate, Rhythm, No Murmur Extremity: Other (right leg with stefanie bandages wrapped around it) Neurologic/Psychiatric: Alert, Oriented x3 Skin: Normal Color, Warm/Dry Results/Procedures Lab Laboratory Tests 08/18/21 06:02 Patient resulted labs reviewed. Imaging: Reviewed Imaging Report Assessment/Plan Assessment and Plan Assess & Plan/Chief Complaint Acute on chronic heart failure with reduced ejection fraction and diastolic dysfunction Acute on chronic respiratory failure with hypoxia COPD with acute exacerbation Elevated troponin Atrial fibrillation Requiring Vapotherm, weaning as able- likely near his baseline, attempted to call RT to switch him to baseline, awaiting call back Chest x-ray consistent with fluid overload Creatinine stable Continue just daily IV Lasix Monitor output, down ~19 L since admission Fluid restriction 1800 cc Low sodium diet Cardiology consulted, appreciate assistance Continue Metoprolol and Eliquis Plavix stopped Continue Aspirin Steroids MAT protocol Hypertension Hyperlipidemia Coronary artery disease BPH Continue home meds Morbid obesity Clinically significant, no acute management needs DVT prophylaxis: already receiving therapeutic anticoagulation RUIZ APODACA MD Aug 18, 2021 10:24
[2021-08-18 12:00] VITALS: BP 96/62
--- NOTE | 2021-08-18 12:45 | Occupational Ther Daily Note ---
OT Current Status-Daily Note Subjective Pt alert, sitting in recliner. Pt agrees to therapy sitting in recliner only. No c/o pain. Mental Status/Objective Patient Orientation: Person, Place, Time, Situation Attachments: IV, Oxygen (15L), Telemetry ADL-Treatment Discussed oral care and toileting with pt. Pt stated that he has no dentures and does not need to do any oral care other than sucking on a breath mint. Pt states that he has attempted to use LH toilet tongs and it does not work for him. This is why he has a bidet at home and the nrsg has to help with hygiene after BM in hospital. Pt has been up ad yoanna in room per nrsg. Pt demonstrated ability to reach to toes in sitting by using figure 4 technique. Therapy Code Descriptions/Definitions Functional Dyer Measure: 0=Not Assessed/NA 4=Minimal Assistance 1=Total Assistance 5=Supervision or Setup 2=Maximal Assistance 6=Modified Dyer 3=Moderate Assistance 7=Complete IndependenceSCALE: Activities may be completed with or without assistive devices. 4-Hbtbtcwqcr-ngvhlex completes the activity by him/herself with no assistance from a helper. 5-Set-up or Clean-up Assistance-helper sets up or cleans up; patient completes activity. Chester assists only prior to or following the activity. 4-Supervision or Touching Assistance-helper provides verbal cues and/or touching/steadying and/or contact guard assistance as patient completes activity. Assistance may be provided throughout the activity or intermittently. 3-Partial/Moderate Assistance-helper does LESS THAN HALF the effort. Chester lifts, holds or supports trunk or limbs, but provides less than half the effort. 2-Substantial/Maximal Assistance-helper does MORE THAN HALF the effort. [place] lifts or holds trunk or limbs and provides more than half the effort. 0-Yrajyngwu-tadvxk does ALL the effort. Patient does none of the effort to complete the activity. Or, the assistance of 2 or more helpers is required for the patient to complete the activity. If activity was not attempted, code reason: 7-Patient Refused. 9-Not Applicable-not attempted and the patient did not perform the activity before the current illness, exacerbation or injury. 10-Not Attempted due to Environmental Limitations-(lack of equipment, weather restraints, etc.). 88-Not Attempted due to Medical Conditions or Safety Concerns. Other Treatment Pt. seated in recliner participated in B UE exs using medium resistance the raband. Skilled instruction required for correct technique and modifications. Shoulder horizontal bad/add, bicep curl, tricep ext., shoulder abd/add, int/ext rotation 20 reps each 1 set. Pt. states int/ext rotation was difficult and "working on breathing". Pt. in recliner call light/phone in reach. All needs met in room. Education Teaching Recipient: Patient Teaching Methods: Demonstration, Discussion Response to Teaching: Verbalize Understanding, Return Demonstration, Reinforcement Needed OT Supply Chain Planner Goals Supply Chain Planner Goals Time Frame: Aug 22, 2021 Oral Hygiene (QC): 5 Toileting Hygiene (QC): 5 (SBA) Additional Goals: 1-Demonstrate ADL Tasks, 2-Verbalize Understanding, 3- ImproveStrength/Manish 1=Demonstrate adherence to instructed precautions during ADL tasks. 2=Patient will verbalize/demonstrate understanding of assistive devices/modifications for ADL. 3=Patient will improve strength/tolerance for activity to enable patient to perform ADL's. OT Education/Plan Problem List/Assessment Assessment: Decreased Activ Tolerance, Decreased UE Strength, Impaired Self- Care Skills Discharge Recommendations Plan/Recommendations: Continue POC Treatment Plan/Plan of Care Patient would benefit from OT for education, treatment and training to promote independence in ADL's, mobility, safety and/or upper extremity function for ADL's. Plan of Care: ADL Retraining, Functional Mobility, UE Funct Exercise/Act, OTHER (Energy conservation education) Treatment Duration: Aug 22, 2021 Frequency: 5 times per week Estimated Hrs Per Day: .25 hour per day Agreement: Yes Rehab Potential: Fair Time/GCodes Start Time: 12:20 Stop Time: 12:46 Total Time Billed (hr/min): 26 Billed Treatment Time 1 visit- EX(16 min), FA (10 min) MIRLANDE CONTRERAS Aug 18, 2021 12:44
--- NOTE | 2021-08-18 13:38 | Progress Note - Cardiology ---
Cardiology SOAP Progress Note Subjective: Shortness of breath present Gen weakness present Leg and gen body swelling improved No cp or palp or syncope No n/v/d Objective: I&O/Vital Signs 08/18/21 08/18/21 08/18/21 08/18/21 02:09 04:00 06:49 06:49 Temp 36.2 Pulse 72 72 Resp 18 B/P (MAP) 102/62 (75) Pulse Ox 91 96 90 O2 Delivery Vapotherm Vapotherm Vapotherm O2 Flow Rate 30.00 30.00 30.00 55.00 FiO2 55 55 08/18/21 08/18/21 08/18/21 08/18/21 08:00 09:00 10:30 12:58 Temp 35.8 Pulse 73 79 Resp 18 B/P (MAP) 92/51 (65) Pulse Ox 92 92 93 O2 Delivery Vapotherm Vapotherm High Flow N/C O2 Flow Rate 30.00 35.00 15.00 55.00 FiO2 60 08/18/21 00:00 Intake Total 800 ml Output Total 2925 ml Balance -2125 ml Weight (Pounds): 295 Weight (Ounces): 14.4 Weight (Calculated Kilograms): 134.686384 Constitutional: AAO x 3, apparent distress, well-developed, well-nourished, other (obese) Respiratory: No accessory muscle use; other (bilateral coarse crackles and rhonchi over large airways; prolonged exp; diminished bs at the bases) Cardiovascular: regular rate-rhythm, S1 and S2, systolic murmur (soft ROBERTO at the cardiac base) Gastrointestional: No tender; soft; No guarding, No rebound; audible bowel sounds Extremities: other (reddish brown discoloration of the legs, thickening and flaking of the skin of both lower legs); No clubbing, No cyanosis; significant edema (bilateral, 3-4+ edema of both legs) Neurologic/Psychiatric: oriented x 3, other (moves all limbs equally) Skin: warm/dry, other (see under Extremities exam above) Results/Procedures: Labs Laboratory Tests 08/18/21 06:02: White Blood Count 10.8, Red Blood Count 4.51, Hemoglobin 14.5, Hematocrit 45, Mean Corpuscular Volume 100H, Mean Corpuscular Hemoglobin 32, Mean Corpuscular Hemoglobin Concent 32, Red Cell Distribution Width 14.9H, Platelet Count 189, Mean Platelet Volume 11.2, Immature Granulocyte % (Auto) 1, Neutrophils (%) (Auto) 75, Lymphocytes (%) (Auto) 13, Monocytes (%) (Auto) 9, Eosinophils (%) (Auto) 3, Basophils (%) (Auto) 0, Neutrophils # (Auto) 8.1H, Lymphocytes # (Auto) 1.4, Monocytes # (Auto) 1.0, Eosinophils # (Auto) 0.3, Basophils # (Auto) 0.0, Immature Granulocyte # (Auto) 0.1, Sodium Level 131L, Potassium Level 4.8, Chloride Level 86L, Carbon Dioxide Level 33H, Anion Gap 12, Blood Urea Nitrogen 36H, Creatinine 1.17, Estimat Glomerular Filtration Rate 63, BUN/Creatinine Ratio 31, Glucose Level 90, Calcium Level 8.0L Microbiology 08/12/21 Blood Culture - Final, Complete No growth Laboratory Tests 08/17/21 08:23 08/18/21 06:02 A/P: Assessment: Acute on chronic systolic HFrEF, NYHA III - IV, due to ischemic cardiomyopathy PAF with RVR recorded on tele on 08/14/21 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 - Endoscopy by Dr Blackwell on 07/02/20: Reflux esophagitis stage II, small to moderate size hiatal hernia approximately 2 cm in size, moderate gastritis with prepyloric type 3 gastric ulcer with an overlying fibrin clot, less than 1 cm in size. No active bleeding. Chronic stage II external and internal hemorrhoids ICM - AICD in place - S/p removal of L-sided ICD and associated leads for device pocket infection in Dec 2013, and new leads and new R-sided device placemennt in Dec 2013, functioning normally per interrogation of 06-05-20 - Echo of 06/06/19: LVEF 35-40%, mod enlarged LA, RVSP 40 mmHg - Echo of 08-12-21: LVEF 40-45%; akinesis of the anteroseptal myocardium. Grade 2 diastolic dysfunction. RV cavity size in creased with normal wall thickness. LA is dilated. Mod TR. PASP 60-65 mmHg Coronary artery disease artery disease. - Last cath was on 04/26/18. It showed severe prox disease of LAD that was stented with Alp Xience 4x15. In the mid LAD there were patent overlapping stents (Manager Underwriting [id number] Manager Underwriting 3x24) and the 1st OM of LCX had a patent stent (Promus James 3.5x12). The RCA was dominant with mild plaques. LVEF was 40% there was anteroapical hypokinesis and mild elev of LVEDP - MPI of 12/21/17: anteroapical infarction with minimal raheem-infarct ischemia; anteroapical akinesis/dyskinesis and LVEF 39%, significant cardiomegaly Abnormal ECG on 12/08/16: - NSR with LBBB. ECG of 06/05/20 essentially unchanged Hyperlipidemia - being treated with statin therapy. Ortho - Degenerative joint disease and lumbago. 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
[2021-08-18 16:00] VITALS: BP 118/58
--- NOTE | 2021-08-18 16:52 | Progress Note ---
Subjective Date Seen by Provider: Aug 18, 2021 Time Seen by Provider: 11:45 Subjective/Events-last exam S: 65 yo patient with significant CHF admitted with respiratory failure. He is an outpatient with [facility]. Prior to admission treated with Acticoat Flex 3 and Coban Lite. He also had Comprefex Sigvarus boots ordered for outpatient compression. He was seen by myself last week and wounds had slightly worsened due to significant CHF associated lower extremity edema and weeping with numerous vesicles. He was unable to elevated due to extreme orthopnea. Ordered Calmoseptine to periwound for moisture protection, silver alginate, gauze and kerlix with EZEQUIEL wrap. Advised to elevate as much as possible. It was explained that his prior outpatient treatments are not on formulary with the hospital and the Acticoat Flex 3 is only available in the clinic (not by order through DME). However, since I last saw Mr. Hightower he has had massive diuresis with IV lasix and fluid restriction. His edema has improved from 3-4+ to trace since my last visit. Upon removing current dressing I found that his wounds were essentially healed. He did have several areas in which the silver sheet was adherent to some eschar and this pulled away with scant bleeding, but otherwise his wounds were dramatically improved. There was no further weeping noted also. No erythema or signs of infection were noted. Review of Systems General: No Chills, No Night Sweats, No Fatigue, No Malaise, No Appetite; Other (obesity) Pulmonary: Dyspnea Cardiovascular: Orthopnea, Edema Objective Exam Last Set of Vital Signs Vital Signs Date Time Temp Pulse Resp B/P (MAP) Pulse Ox O2 Delivery O2 Flow Rate FiO2 08/18/21 16:00 35.9 72 20 118/58 (78) 90 Nasal Cannula 15.00 08/18/21 09:00 60 Capillary Refill : I&O Intake and Output 08/18/21 00:00 Intake Total 1200 ml Output Total 4925 ml Balance -3725 ml Intake Oral 1200 ml Output Urine Total 4925 ml General: Alert, Oriented X3, Cooperative, Mild Distress (SOA with speaking), Other (Obesity) Extremities: Other (trace edema) Skin: No Breakdown, Other (Dramatic improvement in wounds. Most completely healed. Several with scant bleeding upon removal of silver dressing. No weeping or vesicles noted) Psych/Mental Status: Mental Status NL Results Lab Laboratory Tests 08/18/21 06:02: White Blood Count 10.8, Red Blood Count 4.51, Hemoglobin 14.5, Hematocrit 45, Mean Corpuscular Volume 100H, Mean Corpuscular Hemoglobin 32, Mean Corpuscular Hemoglobin Concent 32, Red Cell Distribution Width 14.9H, Platelet Count 189, Mean Platelet Volume 11.2, Immature Granulocyte % (Auto) 1, Neutrophils (%) (Auto) 75, Lymphocytes (%) (Auto) 13, Monocytes (%) (Auto) 9, Eosinophils (%) (Auto) 3, Basophils (%) (Auto) 0, Neutrophils # (Auto) 8.1H, Lymphocytes # (Auto) 1.4, Monocytes # (Auto) 1.0, Eosinophils # (Auto) 0.3, Basophils # (Auto) 0.0, Immature Granulocyte # (Auto) 0.1, Sodium Level 131L, Potassium Level 4.8, Chloride Level 86L, Carbon Dioxide Level 33H, Anion Gap 12, Blood Urea Nitrogen 36H, Creatinine 1.17, Estimat Glomerular Filtration Rate 63, BUN/Creatinine Ratio 31, Glucose Level 90, Calcium Level 8.0L Microbiology 08/12/21 Blood Culture - Final, Complete No growth Assessment/Plan Assessment/Plan Assess & Plan/Chief Complaint Right lower extremity wounds: Primary edema Secondary venous hypertension Continue covering any open wounds with silver daily until fully healed. Roller gauze atop. Dramatic improvement with diuresis. Follow up as outpatient if necessary. Final Diagnosis Edema associated ulceration Venous hypertension NARA BECKHAM MD Aug 18, 2021 16:52
[2021-08-18] MEDS: TAMSULOSIN 0.4 MG (FLOMAX) CAP PO SCH (17:06)
[2021-08-18] MEDS: FUROSEMIDE 40 MG (LASIX) TAB PO SCH (17:06)
[2021-08-18 19:58] VITALS: BP 102/62
[2021-08-19] VITALS (7 sets, daily range): BP systolic 95–112; BP diastolic 52–63
[2021-08-19] MEDS: RT-ALBUTEROL/IPRATROPIUM 3 ML (DUONEB) VIAL INH SCH ×5 (01:58→19:13)
[2021-08-19] MEDS: FUROSEMIDE 40 MG (LASIX) TAB PO SCH ×2 (06:25→17:08)
[2021-08-19] MEDS: predniSONE 20 MG TAB PO SCH (06:25)
[2021-08-19 06:34] LABS: POTASSIUM 4.5 MMOL/L (3.6-5.0)
[2021-08-19 06:36] LABS: CALCIUM 8.3 MG/DL (8.5-10.1)
[2021-08-19 06:40] LABS: CREATININE SERUM 1.22 MG/DL (0.60-1.30)
--- NOTE | 2021-08-19 08:55 | Progress Note - Cardiology ---
Cardiology SOAP Progress Note Subjective: Sitting up in recliner at the bedside Feels his breathing is back to his usual baseline LE swelling has improved No c/o CP or palpitations C/O being tired this morning Objective: I&O/Vital Signs 08/18/21 08/19/21 08/19/21 08/19/21 21:33 00:00 01:00 01:58 Temp 36.2 Pulse 76 78 Resp 18 B/P (MAP) 108/59 (75) Pulse Ox 93 92 91 O2 Delivery High Flow N/C High Flow N/C High Flow N/C O2 Flow Rate 15.00 15.00 15.00 08/19/21 08/19/21 04:00 06:52 Temp 36.0 Pulse 65 Resp 18 B/P (MAP) 99/54 (69) Pulse Ox 93 92 O2 Delivery High Flow N/C High Flow N/C O2 Flow Rate 15.00 15.00 08/19/21 00:00 Intake Total 1220 ml Output Total 2900 ml Balance -1680 ml Weight (Pounds): 295 Weight (Ounces): 14.4 Weight (Calculated Kilograms): 134.809897 Constitutional: AAO x 3, apparent distress, well-developed, well-nourished, other (obese) Respiratory: No accessory muscle use; other (bilateral coarse crackles and r honchi over large airways; prolonged exp; diminished bs at the bases) Cardiovascular: regular rate-rhythm, S1 and S2, systolic murmur (soft ROBERTO at the cardiac base) Gastrointestional: No tender; soft; No guarding, No rebound; audible bowel sounds Extremities: other (reddish brown discoloration of the legs, thickening and flaking of the skin of both lower legs); No clubbing, No cyanosis; significant edema (bilateral, 3-4+ edema of both legs) Neurologic/Psychiatric: oriented x 3, other (moves all limbs equally) Skin: warm/dry, other (see under Extremities exam above) Results/Procedures: Labs Laboratory Tests 08/19/21 06:10: Sodium Level 130L, Potassium Level 4.5, Chloride Level 85L, Carbon Dioxide Level 32, Anion Gap 13, Blood Urea Nitrogen 42H, Creatinine 1.22, Estimat Glomerular Filtration Rate 60, BUN/Creatinine Ratio 34, Glucose Level 107H, Calcium Level 8.3L Microbiology 08/12/21 Blood Culture - Final, Complete No growth Laboratory Tests 08/18/21 06:02 08/19/21 06:10 A/P: Assessment: Acute on chronic systolic HFrEF, NYHA III - IV, due to ischemic cardiomyopathy PAF with RVR recorded on tele on 08/14/21 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 - Endoscopy by Dr Blackwell on 07/02/20: Reflux esophagitis stage II, small to moderate size hiatal hernia approximately 2 cm in size, moderate gastritis with prepyloric type 3 gastric ulcer with an overlying fibrin clot, less than 1 cm in size. No active bleeding. Chronic stage II external and internal hemorrhoids ICM - AICD in place - S/p removal of L-sided ICD and associated leads for device pocket infection in Dec 2013, and new leads and new R-sided device placemennt in Dec 2013, functioning normally per interrogation of 06-05-20 - Echo of 06/06/19: LVEF 35-40%, mod enlarged LA, RVSP 40 mmHg - Echo of 08-12-21: LVEF 40-45%; akinesis of the anteroseptal myocardium. Grade 2 diastolic dysfunction. RV cavity size in creased with normal wall thickness. LA is dilated. Mod TR. PASP 60-65 mmHg Coronary artery disease artery disease. - Last cath was on 04/26/18. It showed severe prox disease of LAD that was stented with Alp Xience 4x15. In the mid LAD there were patent overlapping stents (Blind Slat Stapling Machine Operator [id number] Blind Slat Stapling Machine Operator 3x24) and the 1st OM of LCX had a patent stent (Promus James 3.5x12). The RCA was dominant with mild plaques. LVEF was 40% there was anteroapical hypokinesis and mild elev of LVEDP - MPI of 12/21/17: anteroapical infarction with minimal raheem-infarct ischemia; anteroapical akinesis/dyskinesis and LVEF 39%, significant cardiomegaly Abnormal ECG on 12/08/16: - NSR with LBBB. ECG of 06/05/20 essentially unchanged Hyperlipidemia - being treated with statin therapy. Ortho - Degenerative joint disease and lumbago. 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
[2021-08-19] MEDS: lisINopril 5 MG (PRINIVIL) TABLET PO SCH (08:58)
[2021-08-19] MEDS: PANTOPRAZOLE 40 MG (PROTONIX) TAB PO SCH ×2 (08:58→20:41)
[2021-08-19] MEDS: ASPIRIN 81 MG CHEW (CHILDREN'S ASA) PO SCH (08:58)
[2021-08-19] MEDS: SPIRONOLACTONE 25 MG (ALDACTONE) TAB PO SCH (08:58)
[2021-08-19] MEDS: APIXABAN 5 MG (ELIQUIS) TABLET PO SCH ×2 (08:58→20:41)
[2021-08-19] MEDS: MICONAZOLE 2% POWDER (DESENEX AF) 90 GM TOP SCH ×2 (08:59→21:28)
[2021-08-19] MEDS ORDERED: APIX5TAB PO (08:59)
[2021-08-19] MEDS ORDERED: FURO80TA83 PO (08:59)
[2021-08-19] MEDS ORDERED: ASPI81TA64 PO (08:59)
[2021-08-19] MEDS ORDERED: POTA20TA8 PO (08:59)
[2021-08-19] MEDS: KCL 20 MEQ TAB (K-DUR) PO SCH (08:59)
[2021-08-19] MEDS ORDERED: MTP25TSR PO (08:59)
[2021-08-19] MEDS ORDERED: SPIR25TA5 PO (08:59)
--- NOTE | 2021-08-19 10:39 | Discharge Summary ---
Diagnosis/Chief Complaint Date of Admission Aug 12, 2021 at 12:00 Date of Discharge Discharge Date: Aug 19, 2021 Admission Diagnosis Acute on chronic heart failure with reduced ejection fraction Primary Care Jean-Claude Lopez MD Discharge Diagnosis (1) Acute on chronic respiratory failure with hypoxemia Status: Acute (2) Acute congestive heart failure Status: Acute (3) Elevated troponin Status: Acute (4) COPD (chronic obstructive pulmonary disease) Status: Acute (5) Atrial fibrillation Status: Acute (6) Morbid obesity Status: Chronic Discharge Summary Discharge Physical Exam Allergies: Coded Allergies: quinine (Verified Allergy, Unknown, 06/06/19) Vitals & I&Os Vital Signs Date Time Temp Pulse Resp B/P (MAP) Pulse Ox O2 Delivery O2 Flow Rate FiO2 08/19/21 13:11 66 08/19/21 11:23 92 High Flow N/C 15.00 08/19/21 08:00 36.8 20 95/52 (66) 08/18/21 09:00 60 General Appearance: No Apparent Distress, Chronically ill, Obese Respiratory: No Accessory Muscle Use, Decreased Breath Sounds, Other (on baseline 15lpm HFNC) Neurologic/Psychiatric: Alert, Oriented x3 Hospital Course Patient was admitted to the hospital due to acutely decompensated congestive heart failure. He was treated with IV diuretics and fluid restriction and did very well. He was able to diurese over 21 L throughout his admission here and was able to be titrated down off of Vapotherm to his baseline of 15 L high flow nasal cannula. He is to follow-up with his primary care physician Dr. Lopez with his primary community organization director Dr. Vargas to follow-up his hospital stay. Labs (last 24 hrs) Laboratory Tests 08/19/21 06:10: Sodium Level 130L, Potassium Level 4.5, Chloride Level 85L, Carbon Dioxide Level 32, Anion Gap 13, Blood Urea Nitrogen 42H, Creatinine 1.22, Estimat Glomerular Filtration Rate 60, BUN/Creatinine Ratio 34, Glucose Level 107H, Calcium Level 8.3L Microbiology 08/12/21 Blood Culture - Final, Complete No growth Patient resulted labs reviewed. Pending Labs Laboratory Tests 08/19/21 06:10: Sodium Level 130, Potassium Level 4.5, Chloride Level 85, Carbon Dioxide Level 32, Anion Gap 13, Blood Urea Nitrogen 42, Creatinine 1.22, Estimat Glomerular Filtration Rate 60, BUN/Creatinine Ratio 34, Glucose Level 107, Calcium Level 8.3 Imaging: Reviewed Imaging Report Discussion & Recommendations Discharge Planning: >30 minutes discharge planning Discharge Home Medications: Active Scripts Active Lasix (Furosemide) 80 Mg Tablet 80 Mg PO BID Klor-Con M20 (Potassium Chloride) 20 Meq Tab.er.prt 40 Meq PO DAILY Children's Aspirin (Aspirin) 81 Mg Tab.chew 81 Mg PO DAILY Spironolactone 25 Mg Tablet 25 Mg PO DAILY Metoprolol Succinate 25 Mg Tab.er.24h 25 Mg PO BID Eliquis (Apixaban) 5 Mg Tablet 5 Mg PO BID Reported Yupelri (Revefenacin) 175 Mcg/3 Ml Vial.neb 175 Mcg IH DAILY Perforomist (Formoterol Fumarate) 20 Mcg/2 Ml Vial.neb 20 Mcg NEB BID Budesonide 0.5 Mg/2 Ml Ampul.neb 0.5 Mg NEB BID Albuterol Sulfate 2.5 Mg/3 Ml Vial.neb 3 Ml NEB Q4H PRN Saline Nasal [place] (Sodium Chloride) 30 Ml [place] 2 Sprays NSEACH UD PRN Docusate Sodium 100 Mg Capsule 100 Mg PO DAILY Metoprolol Succinate 25 Mg Tab.er.24h 25 Mg PO DAILY Lisinopril 5 Mg Tablet 5 Mg PO DAILY Movantik (Naloxegol Oxalate) 25 Mg Tablet 25 Mg PO DAILY PRN Furosemide 80 Mg Tablet 160 Mg PO DAILY TAKE 2 (80MG) TABS LAST FILLED 06-04-2021 #60/30 DAY SUPPLY Montelukast Sodium 10 Mg Tablet 10 Mg PO DAILY Flomax (Tamsulosin HCl) 0.4 Mg Cap 0.4 Mg PO 1800 Potassium Chloride 20 Meq Tab.er.prt 20 Meq PO BID LAST FILLED 06-04-2021 #60/30 DAY SUPPLY Plavix (Clopidogrel Bisulfate) 75 Mg Tablet 75 Mg PO DAILY Oxycodone-Acetaminophen 10-325 (Oxycodone HCl/Acetaminophen) 1 Each Tablet 1 Tab PO 0000,0600,1200,1800 Tramadol HCl 50 Mg Tablet 50 Mg PO TID Instructions to patient/family Please see electronic discharge instructions given to patient. Problem Qualifiers (1) Acute congestive heart failure: Heart failure type: unspecified Qualified Codes: I50.9 - Heart failure, unspecified (2) COPD (chronic obstructive pulmonary disease): COPD type: COPD with acute exacerbation Qualified Codes: J44.1 - Chronic obstructive pulmonary disease with (acute) exacerbation (3) Atrial fibrillation: Atrial fibrillation type: paroxysmal Qualified Codes: I48.0 - Paroxysmal atrial fibrillation RUIZ APODACA MD Aug 19, 2021 10:39
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
--- NOTE | 2021-08-19 14:18 | Occ Therapy Progress Note ---
Therapy Progress Note Pt to discharge today. Pt is at prior level with oral care and toileting. Pt has bidet at home and has attempted AD for toilet hygiene that he states does not work. Pt does not have dentures/teeth and only performs oral care by using breath mint. Discharge from OT services. MIRLANDE CONTRERAS Aug 19, 2021 14:18
--- NOTE | 2021-08-19 14:39 | Progress Note - Cardiology ---
Cardiology SOAP Progress Note Subjective: Shortness of breath is better Gen weakness and malaise modestly improved No cp or palp or syncope No n/v/d Objective: I&O/Vital Signs 08/19/21 08/19/21 08/19/21 08/19/21 04:00 06:52 07:00 08:00 Temp 36.0 36.8 Pulse 65 78 76 Resp 18 20 B/P (MAP) 99/54 (69) 95/52 (66) Pulse Ox 93 92 94 O2 Delivery High Flow N/C High Flow N/C High Flow N/C O2 Flow Rate 15.00 15.00 15.00 08/19/21 08/19/21 08/19/21 08/19/21 09:00 11:23 12:00 13:11 Temp 36.8 Pulse 67 66 Resp 20 B/P (MAP) 106/63 (77) Pulse Ox 94 92 92 O2 Delivery High Flow N/C High Flow N/C High Flow N/C O2 Flow Rate 15.00 15.00 15.00 08/19/21 00:00 Intake Total 1220 ml Output Total 2900 ml Balance -1680 ml Weight (Pounds): 295 Weight (Ounces): 14.4 Weight (Calculated Kilograms): 134.011882 Constitutional: AAO x 3, apparent distress, well-developed, well-nourished, other (obese) Respiratory: No accessory muscle use; other (bilateral coarse crackles and rhonchi over large airways; prolonged exp; diminished bs at the bases) Cardiovascular: regular rate-rhythm, S1 and S2, systolic murmur (soft ROBERTO at the cardiac base) Gastrointestional: No tender; soft; No guarding, No rebound; audible bowel sounds Extremities: other (reddish brown discoloration of the legs, thickening and flaking of the skin of both lower legs); No clubbing, No cyanosis; significant edema (bilateral, 3-4+ edema of both legs) Neurologic/Psychiatric: oriented x 3, other (moves all limbs equally) Skin: warm/dry, other (see under Extremities exam above) Results/Procedures: Labs Laboratory Tests 08/19/21 06:10: Sodium Level 130L, Potassium Level 4.5, Chloride Level 85L, Carbon Dioxide Level 32, Anion Gap 13, Blood Urea Nitrogen 42H, Creatinine 1.22, Estimat Glomerular Filtration Rate 60, BUN/Creatinine Ratio 34, Glucose Level 107H, Calcium Level 8.3L Microbiology 08/12/21 Blood Culture - Final, Complete No growth Laboratory Tests 08/18/21 06:02 08/19/21 06:10 A/P: Assessment: Acute on chronic systolic HFrEF, NYHA III - IV, due to ischemic cardiomyopathy PAF with RVR recorded on tele on 08/14/21 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 - Endoscopy by Dr Blackwell on 07/02/20: Reflux esophagitis stage II, small to moderate size hiatal hernia approximately 2 cm in size, moderate gastritis with prepyloric type 3 gastric ulcer with an overlying fibrin clot, less than 1 cm in size. No active bleeding. Chronic stage II external and internal hemorrhoids ICM - AICD in place - S/p removal of L-sided ICD and associated leads for device pocket infection in Dec 2013, and new leads and new R-sided device placemennt in Dec 2013, functioning normally per interrogation of 06-05-20 - Echo of 06/06/19: LVEF 35-40%, mod enlarged LA, RVSP 40 mmHg - Echo of 08-12-21: LVEF 40-45%; akinesis of the anteroseptal myocardium. Grade 2 diastolic dysfunction. RV cavity size in creased with normal wall thickness. LA is dilated. Mod TR. PASP 60-65 mmHg Coronary artery disease artery disease. - Last cath was on 04/26/18. It showed severe prox disease of LAD that was sten josefa with Alp Xience 4x15. In the mid LAD there were patent overlapping stents (Oil Operator [id number] Oil Operator 3x24) and the 1st OM of LCX had a patent stent (Promus James 3.5x12). The RCA was dominant with mild plaques. LVEF was 40% there was anteroapical hypokinesis and mild elev of LVEDP - MPI of 12/21/17: anteroapical infarction with minimal raheem-infarct ischemia; anteroapical akinesis/dyskinesis and LVEF 39%, significant cardiomegaly Abnormal ECG on 12/08/16: - NSR with LBBB. ECG of 06/05/20 essentially unchanged Hyperlipidemia - being treated with statin therapy. Ortho - Degenerative joint disease and lumbago. 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
[2021-08-19] MEDS: TAMSULOSIN 0.4 MG (FLOMAX) CAP PO SCH (17:08)
[2021-08-19] MEDS: oxyCODONE/APAP 10/325MG (PERCOCET 10) TABLET PO PRN (17:14)
== END 2021-08-19 23:30 | disposition home health service (06) | DRG 291 ==
LOC: EDUNIT# 09:59 → ER 10:01 → CSD 12:00 → 4TH 08-15 18:44
PROVIDERS: ADMIT Internal Medicine; ATTEND Internal Medicine
DX: I11.0 Hypertensive heart disease with heart failure (principal); J96.21 Acute and chronic respiratory failure with hypoxia; L97.919 Non-pressure chronic ulcer of unspecified part of right lower leg with unspecified severity; E66.2 Morbid (severe) obesity with alveolar hypoventilation; Z68.41 Body mass index [BMI] 40.0-44.9, adult; I50.23 Acute on chronic systolic (congestive) heart failure; J44.9 Chronic obstructive pulmonary disease, unspecified; C14.0 Malignant neoplasm of pharynx, unspecified; I25.5 Ischemic cardiomyopathy; I25.10 Atherosclerotic heart disease of native coronary artery without angina pectoris; Z20.822 Contact with and (suspected) exposure to COVID-19; I27.20 Pulmonary hypertension, unspecified; I48.0 Paroxysmal atrial fibrillation; G62.9 Polyneuropathy, unspecified; N40.0 Benign prostatic hyperplasia without lower urinary tract symptoms; M19.91 Primary osteoarthritis, unspecified site; D50.0 Iron deficiency anemia secondary to blood loss (chronic); E78.5 Hyperlipidemia, unspecified; M47.816 Spondylosis without myelopathy or radiculopathy, lumbar region; I71.4 Abdominal aortic aneurysm, without rupture; F41.9 Anxiety disorder, unspecified; Z87.891 Personal history of nicotine dependence; I25.2 Old myocardial infarction; Z95.5 Presence of coronary angioplasty implant and graft; R77.8 Other specified abnormalities of plasma proteins; Z95.810 Presence of automatic (implantable) cardiac defibrillator
CPT/HCPCS: 36415; 71045; 71275; 80048; 80053; 82805; 83735; 83880; 84145; 84484; 85007; 85025; 85027; 86141; 87040; 87636; 93005; 94640; 94760; 96361; 96374; 96375

== ENCOUNTER → 2021-08-29 | Outpatient (CLI) | payer MEDICARE, OTHER ==
[~2021-08-29] MED LIST changes: +ALBU2.5V4 NEB; +APIX5TAB PO; +ASPI81TA64 PO; +BUDE0.5A NEB; +DILT240C91 PO; +DOCU100C37 PO; +FORM20VI NEB; +NALO25TA PO; +REVE175V IH; +RIVA20TA PO; +SODI30SP2 NSEACH; +SPIR25TA PO; +SPIR25TA5 PO
== END ==
LOC: WOUNDCARE 09:29
PROVIDERS: ATTEND Surgery
DX: I89.0 Lymphedema, not elsewhere classified (principal); I96 Gangrene, not elsewhere classified; I87.333 Chronic venous hypertension (idiopathic) with ulcer and inflammation of bilateral lower extremity; L97.221 Non-pressure chronic ulcer of left calf limited to breakdown of skin; I50.9 Heart failure, unspecified; E66.01 Morbid (severe) obesity due to excess calories; J44.9 Chronic obstructive pulmonary disease, unspecified; Z68.43 Body mass index [BMI] 50.0-59.9, adult
CPT/HCPCS: 99213

== ENCOUNTER 2021-09-09 12:39 | Observation (INO) | payer MEDICARE, OTHER ==
[~2021-09-09] VITALS: Ht 183 cm; Wt 124.0 kg
[~2021-09-09 12:39] MED LIST changes: +METO2.5T PO; +RIVA15TA2 PO
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
[2021-09-09] MEDS ORDERED: oxyCODONE/APAP 10/325MG (PERCOCET 10) TABLET PO ONE (13:00)
[2021-09-09 13:08] LABS: ABG BASE EXCESS 6.2 MMOL/L (-2.5-2.5); ABG OXYGEN SATURATION 85 % (94-100); ABG PCO2 43 MMHG (35-45); ABG PH 7.46 (7.37-7.43); ABG PO2 56 MMHG (79-93); ABG TCO2 31.7 MMOL/L (21.0-31.0)
[2021-09-09 13:09] LABS: PATIENT TEMP 36.1; VENTILATOR NO
--- NOTE | 2021-09-09 13:39 | Diagnostic Imaging Report ---
INDICATION: sob worsening. TECHNIQUE: Single view chest 1:25 PM. CORRELATION STUDY: 09/01/2021 FINDINGS: Right-sided pacemaker is unchanged. Prominent cardiac enlargement along with pulmonary vascular congestion and perihilar edema overall appears adversely increased from prior. Bilateral pulmonary opacities are noted particularly mid and lower lung lu left slightly greater than right along with small effusions. IMPRESSION: 1. Overall appears to be worsening features of pulmonary vascular congestion and a failure. Superimposed areas of infiltrate lung bases would be difficult to exclude but currently favors probable edema. Dictated by: Dictated on workstation # [id number]
[2021-09-09 19:15] VITALS: BP 112/63
[2021-09-09] MEDS ORDERED: FUROSEMIDE 40 MG (LASIX) TAB PO SCH (19:30)
[2021-09-09] MEDS ORDERED: TAMSULOSIN 0.4 MG (FLOMAX) CAP PO SCH (19:30)
[2021-09-09] MEDS ORDERED: oxyCODONE/APAP 10/325MG (PERCOCET 10) TABLET PO PRN ×2 (19:30→19:45)
[2021-09-09 19:44] VITALS: BP 125/104
[2021-09-09] MEDS ORDERED: RIVAROXABAN 15 MG TABLET (XARELTO) PO NR (19:45)
[2021-09-09] MEDS ORDERED: TAMSULOSIN 0.4 MG (FLOMAX) CAP PO NR (19:45)
[2021-09-09] MEDS ORDERED: CATHETER FLUSH 10 ML SYR IV PRN (19:45)
[2021-09-09] MEDS ORDERED: ACETAMINOPHEN 500 MG TAB (TYLENOL) PO PRN (19:45)
[2021-09-09] MEDS ORDERED: NON-FORMULARY MEDICATION 1 EA EA (Naloxegol Oxalate (Movantik) 25 MG) PO PRN (19:45)
[2021-09-09] MEDS ORDERED: FUROSEMIDE 40 MG/4 ML INJ (LASIX) IVP NR (19:45)
[2021-09-09] MEDS ORDERED: RT-ALBUTEROL SULF 2.5 MG/3 ML PRE-MIX VIAL INH PRN (19:45)
[2021-09-09] MEDS: ASPIRIN 81 MG CHEW (CHILDREN'S ASA) PO SCH (20:45)
[2021-09-09] MEDS: LORazepam 0.5 MG (ATIVAN) TABLET PO PRN (20:45)
[2021-09-09] MEDS: CATHETER FLUSH 10 ML SYR IV SCH (20:46)
[2021-09-09] MEDS: oxyCODONE/APAP 10/325MG (PERCOCET 10) TABLET PO SCH (20:46)
[2021-09-09] MEDS ORDERED: RT-BUDESONIDE NEBS 0.5 MG/2ML (PULMICORT) AMP INH SCH (21:00)
[2021-09-09] MEDS: RT-BUDESONIDE NEBS 0.5 MG/2ML (PULMICORT) AMP INH SCH (22:47)
[2021-09-09] MEDS: RT-ALBUTEROL/IPRATROPIUM 3 ML (DUONEB) VIAL INH SCH (22:47)
[2021-09-10 00:08] VITALS: BP 110/67
[2021-09-10] MEDS: RT-ALBUTEROL/IPRATROPIUM 3 ML (DUONEB) VIAL INH SCH ×5 (02:37→22:30)
[2021-09-10] MEDS: oxyCODONE/APAP 10/325MG (PERCOCET 10) TABLET PO SCH ×4 (03:20→20:37)
[2021-09-10 04:15] VITALS: BP 100/64
[2021-09-10] MEDS: FUROSEMIDE 40 MG (LASIX) TAB PO SCH ×2 (06:36→17:44)
[2021-09-10] MEDS: CATHETER FLUSH 10 ML SYR IV SCH ×3 (06:37→21:15)
[2021-09-10] MEDS: RT-BUDESONIDE NEBS 0.5 MG/2ML (PULMICORT) AMP INH SCH ×2 (07:07→22:30)
[2021-09-10 08:00] VITALS: BP 129/73
[2021-09-10] MEDS: LORazepam 0.5 MG (ATIVAN) TABLET PO PRN ×2 (08:19→14:47)
[2021-09-10 09:19] LABS: BASOPHILS % (AUTO) 0 % (0-10); EOSINOPHILS % (AUTO) 0 % (0-10); HEMATOCRIT 41 % (40-54); HEMOGLOBIN 13.2 g/dL (13.3-17.7); LYMPHOCYTES # (AUTO) 0.5 10^3/uL (1.0-4.0); LYMPHOCYTES % (AUTO) 6 % (12-44); MEAN CORPUSCULAR HEMOGLOBIN 32 pg (25-34); MEAN CORPUSCULAR HGB CONC 32 g/dL (32-36); MEAN CORPUSCULAR VOLUME 99 fL (80-99); MEAN PLATELET VOLUME 10.3 fL (9.0-12.2); MONOCYTES # (AUTO) 0.7 10^3/uL (0.0-1.0); MONOCYTES % (AUTO) 9 % (0-12); NEUTROPHILS # (AUTO) 6.3 10^3/uL (1.8-7.8); NEUTROPHILS % (AUTO) 84 % (42-75); PLATELET COUNT 248 10^3/uL (130-400); WHITE BLOOD COUNT 7.5 10^3/uL (4.3-11.0)
[2021-09-10 09:39] LABS: CALCIUM 9.1 MG/DL (8.5-10.1); CREATININE SERUM 1.01 MG/DL (0.60-1.30); MAGNESIUM 2.5 MG/DL (1.6-2.4); POTASSIUM 3.5 MMOL/L (3.6-5.0)
[2021-09-10] MEDS: MAGNESIUM 1 GM/100 ML IVPB 100 ML IV SCH (09:47)
[2021-09-10] MEDS: POTASSIUM CL 10MEQ/50ML IVPB 50 ML IV SCH (09:48)
[2021-09-10] MEDS: KCL 20 MEQ TAB (K-DUR) PO SCH (09:48)
[2021-09-10 09:55] LABS: LYMPHOCYTES % (MANUAL) 7 %; MONOCYTES % (MANUAL) 6 %; NEUTROPHILS % (MANUAL) 87 %; PLATELET CLUMPS SLIGHT; RBC MORPH NORMAL
[2021-09-10] MEDS ORDERED: KCL 20 MEQ TAB (K-DUR) PO ONE (10:00)
[2021-09-10 11:25] VITALS: BP 107/59
[2021-09-10 16:00] VITALS: BP 100/60
--- NOTE | 2021-09-10 17:13 | History & Physical-Hospitalist ---
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 He uses two oxygen concentrators at home and one of them stopped working. He tried to resolve the issue himself and stayed up all night working on it, but he was unsuccessful. His oxygen saturations were dropping down into the 60s and 70s. He was just discharged the prior day after an admission for fluid overload and heart failure. He has discussed hospice on previous admissions and he is now ready to pursue hospice with [facility]. Source: patient Exam Limitations: no limitations Date Seen 09/09/21 Time Seen by a Provider: 20:30 Attending Physician Juju Curiel MD PCP Jean-Claude Lopez MD Referring Physician Date of Admission Sep 09, 2021 at 17:40 Home Medications & Allergies Home Medications Reviewed patient Home Medication Reconciliation performed by pharmacy medication reconciliations orthotic and prosthetic technician and/or nursing. Patients Allergies have been reviewed. Allergies Allergies Coded Allergies quinine (Verified Allergy, Unknown, 06/06/19) Past Evfrxhl-Aksdib-Axymbf Hx Patient Social History Tobacco Use?: No Smoking Status: Former Smoker Smokeless Tobacco Frequency: Never a User Use of E-Cig and/or Vaping dev: No Substance use?: No Alcohol Use?: No Pt feels they are or have been: No Immunizations Up To Date First/Initial COVID19 Vaccinat: 2020 Second COVID19 Vaccination Hosea: 2020 Tetanus Booster (TDap): Unknown PED Vaccines UTD: No Seasonal Allergies Seasonal Allergies: Yes Current Status Advance Directives: No Communicates: Verbally Primary Language: Upper Sorbian Preferred Spoken Language: Upper Sorbian Is interpretation needed?: No Sensory deficits: Vision impairment, Hearing impairment Past Medical History Surgeries: Cardiac, Coronary Stent, Defibrillator, Lumpectomy, Orthopedic COPD Currently Using CPAP: No Currently Using BIPAP: No Aneurysm, Atrial Fibrillation, Cardiomyopathy, Coronary Artery Disease, Heart Attack, Hypertension Neuropathy Benign Prostatic Hyperpl, Renal Failure Arthritis, Chronic Back Pain Did You Recieve Any Treatments: Yes What Type of Treatment Did You: Radiation Anxiety Blood Disorders: Yes (ANEMIA) Family Medical History No Pertinent Family Hx, Heart Disease SOCIAL HISTORY: -SMOKED 1 PPD, QUIT 2017 WHEN DX WITH THROAT CANCER -ETOH-DENIES USE -DRUGS-DENIES USE Review of Systems Constitutional: no symptoms reported EENTM: no symptoms reported Respiratory: short of breath Cardiovascular: no symptoms reported Gastrointestinal: no symptoms reported Genitourinary: no symptoms reported Musculoskeletal: no symptoms reported Skin: no symptoms reported Psychiatric/Neurological: No Symptoms Reported Physical Exam Physical Exam Vital Signs Vital Signs - First Documented 09/09/21 12:39 Temp 36.1 Pulse 92 Resp 20 B/P (MAP) 125/104 (111) Pulse Ox 92 O2 Delivery Non Rebreather O2 Flow Rate 15.00 Capillary Refill : Less Than 3 Seconds Height, Weight, BMI Height: 6'0.00" Weight: 295lbs. 14.4oz. [id number]; 37.02 BMI Method:Stated General Appearance: No Apparent Distress, Anxious, Chronically ill, Obese HEENT: PERRL/EOMI, Pharynx Normal Neck: Normal Inspection, Supple Respiratory: No Respiratory Distress, Crackles, Decreased Breath Sounds Cardiovascular: Regular Rate, Rhythm, No Murmur Gastrointestinal: Normal Bowel Sounds, Non Tender, Soft Extremity: Normal Inspection, Non Tender, Pedal Edema, Swelling Neurologic/Psychiatric: Alert, Oriented x3 Skin: Normal Color, Warm/Dry Results Results/Procedures Labs Laboratory Tests 09/10/21 09:10 Patient resulted labs reviewed. Imaging: Reviewed Imaging Report Assessment/Plan Admission Diagnosis Acute on chronic respiratory failure with hypoxia Admission Status: Observation Assessment and Plan Acute on chronic respiratory failure with hypoxia Acute on chronic heart failure reduced ejection fraction and diastolic dysfun ction COPD without acute exacerbation Coronary artery disease Ischemic cardiomyopathy Hypertension Hyperlipidemia Paroxysmal atrial fibrillation Pulmonary hypertension Obesity Poor prognosis Supplemental oxygen as needed, currently on baseline 15 L IV Lasix Palliative care consult Planning for home with [facility] tomorrow Diagnosis/Problems Diagnosis/Problems (1) Acute on chronic respiratory failure with hypoxemia Status: Acute (2) Congestive heart failure Status: Acute Qualifiers: Heart failure type: combined systolic and diastolic Heart failure chronicity: acute on chronic Qualified Codes: I50.43 - Acute on chronic combined systolic (congestive) and diastolic (congestive) heart failure (3) CAD (coronary artery disease) Status: Chronic (4) Ischemic cardiomyopathy Status: Chronic (5) HTN (hypertension) Status: Chronic (6) Atrial fibrillation Status: Chronic Qualifiers: Atrial fibrillation type: paroxysmal Qualified Codes: I48.0 - Paroxysmal atrial fibrillation (7) COPD (chronic obstructive pulmonary disease) Status: Chronic (8) BPH (benign prostatic hyperplasia) Status: Chronic (9) Former smoker Status: Chronic (10) Obesity Status: Chronic (11) Poor prognosis Status: Acute JUJU CURIEL MD Sep 10, 2021 17:13
[2021-09-10] MEDS ORDERED: oxyCODONE 20 MG/1 ML ORAL CONC (RoxiCODONE) CHARGE PER 1 ML PO PRN (17:30)
[2021-09-10] MEDS ORDERED: morphine (ROXINOL) 10 MG/0.5 ML oral conc 0.5 ML PO PRN (17:30)
[2021-09-10] MEDS: TAMSULOSIN 0.4 MG (FLOMAX) CAP PO SCH (17:44)
[2021-09-10] MEDS: RIVAROXABAN 15 MG TABLET (XARELTO) PO SCH (17:44)
--- NOTE | 2021-09-10 19:13 | Progress Note - Hospitalist ---
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 He uses two oxygen concentrators at home and one of them stopped working. He tried to resolve the issue himself and stayed up all night working on it, but he was unsuccessful. His oxygen saturations were dropping down into the 60s and 70s. He was just discharged the prior day after an admission for fluid overload and heart failure. He has discussed hospice on previous admissions and he is now ready to pursue hospice with [facility]. Subjective/Events-last exam He is doing ok today. He is anxious and tearful about his prognosis, but still wants to pursue hospice. He wants to test his concentrator prior to leaving. He wants to try some of the medicines he will be on at home. Objective Exam Vital Signs Vital Signs Date Time Temp Pulse Resp B/P (MAP) Pulse Ox O2 Delivery O2 Flow Rate FiO2 09/10/21 16:00 36.5 96 20 100/60 (73) 93 High Flow N/C 13.00 Capillary Refill : Less Than 3 Seconds General Appearance: No Apparent Distress, Anxious, Chronically ill, Obese Respiratory: No Respiratory Distress, Decreased Breath Sounds Cardiovascular: Regular Rate, Rhythm, No Murmur Gastrointestinal: Normal Bowel Sounds, Non Tender, Soft Extremity: Normal Inspection, Pedal Edema, Swelling Neurologic/Psychiatric: Alert, Oriented x3 Skin: Normal Color, Warm/Dry Results/Procedures Lab Laboratory Tests 09/10/21 09:10 Patient resulted labs reviewed. Imaging: Reviewed Imaging Report Assessment/Plan Assessment and Plan Assess & Plan/Chief Complaint Acute on chronic respiratory failure with hypoxia Acute on chronic heart failure reduced ejection fraction and diastolic dysfunction COPD without acute exacerbation Coronary artery disease Ischemic cardiomyopathy Hypertension Hyperlipidemia Paroxysmal atrial fibrillation Pulmonary hypertension Obesity Poor prognosis Supplemental oxygen as needed, currently on baseline 15 L Transitioned to oral Lasix Roxinol as needed for pain and air hunger Ativan as needed for anxiety Palliative care consulted Planning for home with [facility] tomorrow, wants to test oxygen concentrator prior to discharge Diagnosis/Problems Diagnosis/Problems (1) Acute on chronic respiratory failure with hypoxemia Status: Acute (2) Congestive heart failure Status: Acute Qualifiers: Heart failure type: combined systolic and diastolic Heart failure chronicity: acute on chronic Qualified Codes: I50.43 - Acute on chronic combined systolic (congestive) and diastolic (congestive) heart failure (3) CAD (coronary artery disease) Status: Chronic (4) Ischemic cardiomyopathy Status: Chronic (5) HTN (hypertension) Status: Chronic (6) Atrial fibrillation Status: Chronic Qualifiers: Atrial fibrillation type: paroxysmal Qualified Codes: I48.0 - Paroxysmal atrial fibrillation (7) COPD (chronic obstructive pulmonary disease) Status: Chronic (8) BPH (benign prostatic hyperplasia) Status: Chronic (9) Former smoker Status: Chronic (10) Obesity Status: Chronic (11) Poor prognosis Status: Acute JUJU CURIEL MD Sep 10, 2021 19:13
[2021-09-10] MEDS ORDERED: LORazepam 0.5 MG (ATIVAN) TABLET PO PRN (19:15)
[2021-09-10] MEDS ORDERED: RIVAROXABAN 15 MG TABLET (XARELTO) PO SCH (19:30)
[2021-09-10 20:00] VITALS: BP 110/64
[2021-09-10] MEDS: ASPIRIN 81 MG CHEW (CHILDREN'S ASA) PO SCH (20:36)
[2021-09-11 00:09] VITALS: BP 92/56
[2021-09-11] MEDS: RT-ALBUTEROL/IPRATROPIUM 3 ML (DUONEB) VIAL INH SCH ×4 (02:14→15:03)
[2021-09-11] MEDS: oxyCODONE/APAP 10/325MG (PERCOCET 10) TABLET PO SCH ×3 (02:32→13:21)
[2021-09-11 04:14] VITALS: BP 100/70
[2021-09-11] MEDS: MAGNESIUM 1 GM/100 ML IVPB 100 ML IV SCH (06:03)
[2021-09-11] MEDS: POTASSIUM CL 10MEQ/50ML IVPB 50 ML IV SCH (06:03)
[2021-09-11] MEDS: KCL 20 MEQ TAB (K-DUR) PO SCH (06:04)
[2021-09-11] MEDS: CATHETER FLUSH 10 ML SYR IV SCH ×2 (06:40→14:19)
[2021-09-11] MEDS: FUROSEMIDE 40 MG (LASIX) TAB PO SCH ×2 (06:41→18:11)
[2021-09-11] MEDS: RT-BUDESONIDE NEBS 0.5 MG/2ML (PULMICORT) AMP INH SCH (07:25)
[2021-09-11 07:56] VITALS: BP 122/71
[2021-09-11] MEDS ORDERED: SALINE NASAL SPRAY (OCEAN) 45 ML BTL PRN (10:30)
--- NOTE | 2021-09-11 14:50 | Discharge Summary ---
Discharge Summary Hospital Course Was the Problem List Reviewed?: Yes Problems/Dx: (1) Acute on chronic respiratory failure with hypoxemia Status: Acute (2) Congestive heart failure Status: Acute Qualifiers: Qualified Codes: I50.43 - Acute on chronic combined systolic (congestive) and diastolic (congestive) heart failure (3) CAD (coronary artery disease) Status: Chronic (4) Ischemic cardiomyopathy Status: Chronic (5) HTN (hypertension) Status: Chronic (6) Atrial fibrillation Status: Chronic Qualifiers: Qualified Codes: I48.0 - Paroxysmal atrial fibrillation (7) COPD (chronic obstructive pulmonary disease) Status: Chronic (8) BPH (benign prostatic hyperplasia) Status: Chronic (9) Former smoker Status: Chronic (10) Obesity Status: Chronic (11) Poor prognosis Status: Acute Hospital Course Date of Admission: Sep 09, 2021 at 17:40 Admission Diagnosis : Acute on chronic respiratory failure with hypoxia Family Physician/Provider: Robert Alcaraz MD Date of Discharge: 09/11/21 Discharge Diagnosis: Acute on chronic respiratory failure with hypoxia Hospital Course: Osiel Hightower Jr is a 65 year old male with PMH CHF, COPD, chronic respiratory failure on home oxygen, CAD, ICM, HTN, HLD, AFib, pulmonary HTN, obesity, who presented with acute on chronic respiratory failure with hypoxia. He was just discharged after his second admission in the past month for fluid overload due to heart failure. He returned shortly after going home because one of his two oxygen concentrators stopped working and he became hypoxic. He had discussed hospice on previous admissions and feels that he is ready at this time. He was set up with [facility] on discharge. Labs and Pending Lab Test: Home Meds Active Oxycodone-Acetaminophen 10-325 (Oxycodone HCl/Acetaminophen) 1 Each Tablet 1 Tab PO Q6H 7 Days Metolazone 2.5 Mg Tablet 2.5 Mg PO DAILY 30 Days Furosemide 80 Mg Tablet 80 Mg PO BID 30 Days Klor-Con M20 (Potassium Chloride) 20 Meq Tab.er.prt 40 Meq PO DAILY@0600 Take 2 tablets once daily Metoprolol Succinate 25 Mg Tab.er.24h 25 Mg PO DAILY Xarelto Tablet (Rivaroxaban) 15 Mg Tablet 15 Mg PO DAILY@1700 Reported Aspirin 81 Mg Tab.chew 81 Mg PO HS Diltiazem 24Hr ER (Diltiazem HCl) 240 Mg Cap.er.24h 240 Mg PO HS Yupelri (Revefenacin) 175 Mcg/3 Ml Vial.neb 175 Mcg IH DAILY Perforomist (Formoterol Fumarate) 20 Mcg/2 Ml Vial.neb 20 Mcg NEB BID Budesonide 0.5 Mg/2 Ml Ampul.neb 0.5 Mg NEB BID Albuterol Sulfate 2.5 Mg/3 Ml Vial.neb 3 Ml NEB Q4H PRN Saline Nasal [place] (Sodium Chloride) 30 Ml [place] 2 Sprays NSEACH UD PRN Movantik (Naloxegol Oxalate) 25 Mg Tablet 25 Mg PO DAILY PRN Montelukast Sodium 10 Mg Tablet 10 Mg PO DAILY Flomax (Tamsulosin HCl) 0.4 Mg Cap 0.4 Mg PO HS Tramadol HCl 50 Mg Tablet 50 Mg PO TID Assessment/Pt Instructions You are being discharged on hospice. Continue medications as prescribed. Contact [facility] for any questions or concerns. Discharge Planning: >30 minutes discharge planning Discharge Instructions Discharge Diet: No Restrictions Activity as Tolerated: Yes Discharge Physical Examination Vital Signs Vital Signs Date Time Temp Pulse Resp B/P (MAP) Pulse Ox O2 Delivery O2 Flow Rate FiO2 09/11/21 11:19 92 High Flow N/C 15.00 09/11/21 07:56 35.5 74 24 122/71 (88) General Appearance: No Apparent Distress, Chronically ill, Obese Respiratory: No Respiratory Distress, Decreased Breath Sounds Cardiovascular: Regular Rate, Rhythm, No Murmur Gastrointestinal: Normal Bowel Sounds, Non Tender, Soft Extremity: Normal Inspection, Non Tender, Pedal Edema, Swelling Skin: Normal Color, Warm/Dry Neurologic/Psychiatric: Alert, Oriented x3 Allergies: Coded Allergies: quinine (Verified Allergy, Unknown, 06/06/19) Copy Copies To 1: ROBERT ALCARAZ MD Discharge Summary Date of Admission Sep 09, 2021 at 17:40 Date of Discharge Discharge Date: Sep 11, 2021 Discharge Time: 14:46 Admission Diagnosis Acute on chronic respiratory failure with hypoxia Comfort Measures/ End of Life Care: Hospice Care (Home) Advance Care discuss with: patient Plan: initiate discussion, clarifying prognosis, identified end-of-life goals, developed treatment plan Time spent on discussion (min): 45 Discharge Diagnosis Acute on chronic respiratory failure with hypoxia Acute on chronic heart failure reduced ejection fraction and diastolic dysfunction COPD without acute exacerbation Coronary artery disease Ischemic cardiomyopathy Hypertension Hyperlipidemia Paroxysmal atrial fibrillation Pulmonary hypertension Obesity Poor prognosis (1) Acute on chronic respiratory failure with hypoxemia Status: Acute (2) Congestive heart failure Status: Acute Qualifiers: Qualified Codes: I50.43 - Acute on chronic combined systolic (congestive) and diastolic (congestive) heart failure (3) CAD (coronary artery disease) Status: Chronic (4) Ischemic cardiomyopathy Status: Chronic (5) HTN (hypertension) Status: Chronic (6) Atrial fibrillation Status: Chronic Qualifiers: Qualified Codes: I48.0 - Paroxysmal atrial fibrillation (7) COPD (chronic obstructive pulmonary disease) Status: Chronic (8) BPH (benign prostatic hyperplasia) Status: Chronic (9) Former smoker Status: Chronic (10) Obesity Status: Chronic (11) Poor prognosis Status: Acute JUJU CURIEL MD Sep 11, 2021 14:46
[2021-09-11] MEDS ORDERED: OXYMETAZOLINE (AFRIN) 0.05% NA 30 ML BTL PRN (15:15)
[2021-09-11] MEDS ORDERED: CHLORASEPTIC SPRAY 177 ML LIQUID MC PRN (15:15)
[2021-09-11 15:46] VITALS: BP 122/84
[2021-09-11] MEDS: TAMSULOSIN 0.4 MG (FLOMAX) CAP PO SCH (17:59)
[2021-09-11] MEDS: RIVAROXABAN 15 MG TABLET (XARELTO) PO SCH (17:59)
[2021-09-11 18:49] VITALS: BP 122/84
== END 2021-09-11 19:10 | disposition hospice, home (50) ==
LOC: EDUNIT# 12:39 → ER 12:41 → 4TH 17:40
PROVIDERS: ADMIT Internal Medicine; ATTEND Internal Medicine
DX: J96.21 Acute and chronic respiratory failure with hypoxia (principal); I11.0 Hypertensive heart disease with heart failure; J44.9 Chronic obstructive pulmonary disease, unspecified; J30.2 Other seasonal allergic rhinitis; I25.10 Atherosclerotic heart disease of native coronary artery without angina pectoris; E78.5 Hyperlipidemia, unspecified; G62.9 Polyneuropathy, unspecified; G89.29 Other chronic pain; M54.9 Dorsalgia, unspecified; M19.90 Unspecified osteoarthritis, unspecified site; E66.9 Obesity, unspecified; F41.9 Anxiety disorder, unspecified; I25.5 Ischemic cardiomyopathy; I48.0 Paroxysmal atrial fibrillation; I27.20 Pulmonary hypertension, unspecified; N40.0 Benign prostatic hyperplasia without lower urinary tract symptoms; I50.43 Acute on chronic combined systolic (congestive) and diastolic (congestive) heart failure; Z87.891 Personal history of nicotine dependence; Z79.899 Other long term (current) drug therapy; Z79.82 Long term (current) use of aspirin; Z79.891 Long term (current) use of opiate analgesic; Z79.01 Long term (current) use of anticoagulants; Z95.5 Presence of coronary angioplasty implant and graft; Z99.81 Dependence on supplemental oxygen; Z68.37 Body mass index [BMI] 37.0-37.9, adult
CPT/HCPCS: 71045; 80048; 82805; 83735; 85007; 85027; 94640 ×3; 94760 ×3; 99285; G0378; 36415